=== PATIENT | female | born 1940 | race Caucasian/White ===

== ENCOUNTER → 2018-04-12 14:25 | Outpatient (CLI) | payer MEDICARE, SELFPAY ==
--- NOTE | 2018-04-12 14:25 | DT_ITS ---
This patient was seen during an EMR downtime April 11, 2018 - April 18, 2018. This patient may have a combination of paper and electronic documentation or all paper documentation. All documentation is viewable within the e-chart portion of [facility] for each patient visit.
--- NOTE | 2018-04-12 14:35 | BI_ITS ---
MAMMOGRAPHY - BILATERAL SCREENING REASON FOR EXAM: Female, 77 years old. Routine annual screening examination. PERTINENT HISTORY: FAM HX OF SISTER @ AGE 74 T DAUGHTER @ AGE 47 - BILAT MOLES MARKED TECHNIQUE: Digital bilateral breast gaby (3D mammographic acquisition) in the CC and MLO projections. 2-D mediolateral oblique (MLO) and craniocaudad (CC) views of both breasts were obtained. CAD: Full Field Digital Mammography with Computer Added Detection was performed. COMPARISON: 03/19/2017 and 03/17/2016 and 03/15/2015 FINDINGS: Breast Composition: The breasts are heterogeneously dense, which may obscure small masses. There are no dominant masses or suspicious calcifications. No other significant abnormalities are identified. BI/SCREENING MAMM (CAD), BILAT IMPRESSION: Stable bilateral screening mammogram. Yearly follow-up mammogram recommended. (A) ASSESSMENT CATEGORY: BIRADS Category 2: Benign. A letter regarding these results will be sent to the patient by the facility within 30 days. Approximately 10% of breast cancers are not detected by mammography. A normal mammogram should not delay biopsy of a clinically suspicious abnormality. [id number] Electronically Signed: Jassi King MD at 15:39 EDT Tel , Service support ,
== END ==
PROVIDERS: Family Provider Family Medicine; PCP Family Medicine; Visit Provider Family Medicine
DX: Z12.31 Encounter for screening mammogram for malignant neoplasm of breast (principal)
CPT/HCPCS: 77063; 77067

== ENCOUNTER → 2018-04-29 09:46 | Outpatient (CLI) | payer MEDICARE, SELFPAY ==
[2018-04-29 12:38] LABS: Anion Gap 7 (5-15); BUN 17 mg/dL (7-18); BUN/Creat Ratio 17.2 RATIO (10-20); Calcium,Total 9.5 mg/dL (8.5-10.1); Chloride 105 mmol/L (98-107); Cholesterol 165 mg/dL (200); Creatinine, Serum 0.99 mg/dL (0.55-1.02); EST Glomerular Filtration Rate 58 mL/min (>60); Est Glom Filt Rate - Afr Amer 70 mL/min (>60); Glucose 95 mg/dL (74-106); High Density Lipoprotein 42 mg/dL; Potassium 4.7 mmol/L (3.5-5.1); Sodium Level 140 mmol/L (136-145); Thyroid Stim Hormone (TSH) 1.79 uIU/mL (0.358-3.74); Triglycerides 133 mg/dL; Very Low Density Lipoprotein 27 mg/dL (5-40)
== END ==
PROVIDERS: Family Provider Family Medicine; PCP Family Medicine; Visit Provider Family Medicine
DX: E78.00 Pure hypercholesterolemia, unspecified (principal); E04.2 Nontoxic multinodular goiter; I10 Essential (primary) hypertension
CPT/HCPCS: 36415; 80048; 80061; 84443

== ENCOUNTER → 2019-04-12 | Outpatient (CLI) | payer MEDICARE, SELFPAY ==
[2019-04-12 10:24] LABS: Hematocrit 40.4 % (37-47); Hemoglobin 13.4 g/dl (12.0-15.0); Mean Corp Hgb Conc 33.2 g/gl (32-36); Mean Corpuscular Hgb 30.5 pg (27.0-32.0); Mean Platelet Vol. 10.7 fl (6.2-12.0); Platelet Count 285 K/mm3 (150-450); RBC Distribution Width CV 13.4 % (11.6-14.6); RBC Distribution Width SD 44.2 fl (35.1-43.9); Red Blood Count 4.39 M/mm3 (4.2-5.4); White Blood Count 7.1 K/mm3 (4.4-11.0)
[2019-04-12 10:26] LABS: Scan Indicated on CBC? Y/N NO
[2019-04-12 10:49] LABS: Anion Gap 6 (5-15); BUN 22 mg/dL (7-18); BUN/Creat Ratio 19.8 RATIO (10-20); Calcium,Total 9.2 mg/dL (8.5-10.1); Chloride 107 mmol/L (98-107); Cholesterol 177 mg/dL (200); Creatinine, Serum 1.11 mg/dL (0.55-1.02); EST Glomerular Filtration Rate 51 mL/min (>60); Est Glom Filt Rate - Afr Amer 61 mL/min (>60); Glucose 80 mg/dL (74-106); High Density Lipoprotein 58 mg/dL; Potassium 4.1 mmol/L (3.5-5.1); Sodium Level 142 mmol/L (136-145); Thyroid Stim Hormone (TSH) 2.09 uIU/mL (0.358-3.74); Triglycerides 120 mg/dL; Uric Acid 5.6 mg/dL (2.6-6.0); Very Low Density Lipoprotein 24 mg/dL (5-40)
== END | disposition home or self-care (01) ==
PROVIDERS: Family Provider Family Medicine; PCP Family Medicine; Referring Provider Family Medicine; Visit Provider Family Medicine
DX: M10.9 Gout, unspecified (principal); I10 Essential (primary) hypertension; E04.9 Nontoxic goiter, unspecified; E78.00 Pure hypercholesterolemia, unspecified
CPT/HCPCS: 36415; 80048; 80061; 84443; 84550; 85027

== ENCOUNTER → 2019-04-20 | Outpatient (CLI) | payer MEDICARE, SELFPAY ==
--- NOTE | 2019-04-20 07:13 | BI_ITS ---
MAMMOGRAPHY - BILATERAL SCREENING REASON FOR EXAM: Female, 78 years old. Routine annual screening examination. PERTINENT HISTORY: Daughter with breast cancer. Sister with breast cancer. TECHNIQUE: Digital bilateral breast renay (3D mammographic acquisition) in the CC and MLO projections. 2-D mediolateral oblique (MLO) and craniocaudad (CC) views of both breasts were obtained. CAD: Full Field Digital Mammography with Computer Added Detection was performed. COMPARISON: Comparison is made with prior study dated April 12, 2018 and March 19, 2017. FINDINGS: Breast Composition: There are scattered areas of fibroglandular density. There are no dominant masses or suspicious calcifications. No other significant abnormalities are identified. There has been no significant change since the prior study. BI/SCREEN MAMM (CAD) W/RENAY BILAT IMPRESSION: Stable bilateral screening mammogram. Yearly follow-up mammogram recommended. (A) ASSESSMENT CATEGORY: BIRADS Category 1: Negative. A letter regarding these results will be sent to the patient by the facility within 30 days. Approximately 10% of breast cancers are not detected by mammography. A normal mammogram should not delay biopsy of a clinically suspicious abnormality. [id number] Electronically Signed: Dereck Cortes, at 10:30 EDT , Service support ,
--- NOTE | 2019-04-20 07:14 | US_ITS ---
STUDY: THYROID ULTRASOUND REASON FOR EXAM: Female, 78 years old. Multinodular goiter. TECHNIQUE: Ultrasound evaluation of the thyroid was performed with real-time and static robertson-scale imaging. COMPARISON: Comparison is made with prior study dated August 24, 2017. FINDINGS: RIGHT LOBE: The right lobe of the thyroid gland measures 4.6 cm x 1.3 cm x 1.5 cm. There is a heterogeneous echotexture. 2 cystic nodules are seen in the upper and lower pole. The larger measures 5 mm x 5 mm x 4 mm. This is in the lower pole. LEFT LOBE: The left lobe of the thyroid gland measures 4 cm x 1.2 cm x 1.4 cm. There is a heterogeneous echotexture. There are no demonstrated solid, cystic or complex lesions. The previously seen nodule is not seen at this time. ISTHMUS: The isthmus measures 3.0 mm. The regional lymph nodes are normal. US/Thyroid IMPRESSION: 2 subcentimeters cysts are seen in the right lobe of the thyroid. The left lobe is unremarkable. Electronically Signed: Dereck Cortes, at 12:41 EDT , Service support ,
== END | disposition home or self-care (01) ==
LOC: OPBI 07:11
PROVIDERS: Family Provider Family Medicine; PCP Family Medicine; Referring Provider Family Medicine; Visit Provider Family Medicine
DX: E04.2 Nontoxic multinodular goiter (principal); Z12.31 Encounter for screening mammogram for malignant neoplasm of breast
CPT/HCPCS: 76536; 77063; 77067

== ENCOUNTER 2019-06-15 09:42 | Observation (INO) | payer MEDICARE, SELFPAY ==
[2019-06-15] VITALS (12 sets, daily range): BP systolic 134–196; BP diastolic 51–85; PULSE 5–64; RESP 14–18; TEMP 36.4–36.9; O2SAT 94–100; BMI 29.3; BMI 30.5
--- NOTE | 2019-06-15 09:52 | RAD_ITS ---
STUDY: X-RAY CHEST REASON FOR EXAM: Female, 78 years old. Blurred vision. TECHNIQUE: Single AP portable view of the chest. COMPARISON: None. FINDINGS: Elevation of the right hemidiaphragm. Scattered calcified granulomas. Minimal increased linear markings at the left lung base suggestive of bleeding atelectasis. There is no demonstrated pleural abnormality. Normal size heart. Normal mediastinum and fredy. Normal visualized pulmonary arteries. Normal visualized aortic arch and descending thoracic aorta. There are diffuse degenerative changes of the visualized thoracic spine. Normal visualized ribs, clavicles, and shoulders. There is no demonstrated abnormality of the visualized soft tissue structures of the upper abdomen. RAD/Chest 1 View (Portable) IMPRESSION: Minimal increased markings at the left lung base suggestive of linear atelectasis. Electronically Signed: Dereck Cortes, at 10:26 EDT , Service support ,
--- NOTE | 2019-06-15 09:52 | EKG12_ITS ---
Test Reason : NEURO S/SX Blood Pressure : / mmHG Vent. Rate : 058 BPM Atrial Rate : 058 BPM P-R Int : 194 ms QRS Dur : 086 ms QT Int : 414 ms P-R-T Axes : 040 -17 024 degrees QTc Int : 406 ms Sinus bradycardia Inferior infarct (cited on or before 17-DEC-2015), age undetermined Abnormal ECG Confirmed by ANTONIA QUIJANO ([id number]), editor map KATTY MAHAJAN ([id number]) on 06/19/2019 1:23:50 PM Referred By: Feliz Solorzano Confirmed By:ANTONIA QUIJANO
--- NOTE | 2019-06-15 09:53 | CT_ITS ---
STUDY: CTA HEAD AND NECK WITH CONTRAST REASON FOR EXAM: Female, 78 years old. RT EYE BLINDNESS X 2 DAYS. Hx of macular degeneration.. RADIATION DOSAGE (If Supplied By Facility): CTDIvol = ( 27.64 ) mGy, DLP = ( 1276.85 ) mGycm TECHNIQUE: CT angiography was performed with a multi-detector CT scanner. Data acquisition was obtained from the skull base through the vertex following intravenous administration of 100ml IV Isovue 300. MIP images were reconstructed from the axial data set. Post-processing of the angiographic images was performed, with multiplanar reformation and 3D reconstruction. Individualized dose optimization techniques were used for this CT. COMPARISON: No relevant priors. FINDINGS: Normal bilateral petrous carotid arteries. Normal right cavernous carotid artery with a normal supraclinoid bifurcation. Normal left cavernous carotid artery with a normal supraclinoid bifurcation. Normal right A1 segments of the anterior cerebral artery. Normal left A1 segments of the anterior cerebral artery. Normal intact anterior communicating artery (ACOM). Normal bilateral A2 segments of the anterior cerebral arteries. Normal right M1 and M2 segments of the middle cerebral arteries, with a normal M1 bifurcation. Normal left M1 and M2 segments of the middle cerebral arteries, with a normal M1 bifurcation. Normal bilateral vertebral arteries. Normal basilar artery with a normal basilar bifurcation. Normal bilateral P1, P2 and visualized P3 segments of the posterior cerebral arteries. There is no demonstrated aneurysm of the [place] of [place]. There is no demonstrated abnormality of the visualized brain. AORTIC ARCH: Normal visualized aortic arch. Normal origins of the brachiocephalic, left common carotid, and left subclavian arteries. RIGHT CAROTID ARTERIES: Normal right common carotid artery (CCA). There is mild atherosclerotic plaque formation with minimal narrowing of the right carotid bulb. Normal origin of the right internal carotid (ICA) artery without a hemodynamically significant stenosis. Normal visualized cervical portion of the right internal carotid artery. Normal origin of the right external carotid artery (ECA). LEFT CAROTID ARTERIES: Normal left common carotid artery (CCA). There is minimal atherosclerotic plaque formation without narrowing of the left carotid bulb. Normal origin of the left internal carotid (ICA) artery without a hemodynamically significant stenosis. Normal visualized cervical portion of the left internal carotid artery. Normal origin of the left external carotid artery (ECA). VERTEBRAL ARTERIES: Normal bilateral vertebral arteries. CT/CTA Head AND Neck W/ Contrast IMPRESSION: No occlusion or significant stenosis. Mild atherosclerotic plaque. Electronically Signed: Brayden Pan MD at 12:03 EDT Tel , Service support ,
--- NOTE | 2019-06-15 09:59 | ED.VIS.GEN ---
History of Present Illness Chief Complaint: Neuro S/Sx Informant: Patient Onset: Days Current Severity: Mild Narrative: Complains of visual disturbance blurriness in right eye, she indicates she really only has vision from her right eye due to left eye macular degeneration, left eye she only sees out of the sides , on Wednesday or Wednesday she developed visual disturbance when she woke up consisted of a blurry vision to where she could not see much lasted for 20 minutes, she made a point with her global head advertiser solutions, seen today she is asymptomatic and her ophthalmologic exam is unremarkable there is concern for possible stroke or other life-threatening conditions causing the above affecting her only eye with effective vision she was sent to the emergency department for evaluation, she currently has no symptoms or visual function is normal in both of her eyes she has no change in functional ability, no headache no speech disturbance no numbness weakness or paresthesias she is never had a stroke NE PE or DVT no heart lung liver or kidney disorders Past Medical History - Allergies and Home Meds Allergies/Adverse Reactions: Allergies aspirin Allergy (Verified 06/15/19 09:43) Unknown PT HAS HX OF MACULAR DEGENERATION Primary Care Physician: Francois Black MD [Primary Care Provider] - Past Medical History: - Surgical History: cholecystectomy, hysterectomy, surgery Smoking Status: Never smoker Review of Systems ROS: - High cholesterol takes a water pill and as above General: Denies: Chills, Fever, Sweats Eyes: Reports: Visual changes - right, Visual changes - bilaterally, Diplopia ENT: Denies: Rhinorrhea, Sore throat Cardiovascular: Denies: Chest pain, Palpitations Respiratory: Denies: Dyspnea, Cough, Dyspnea on exertion Gastrointestinal: Denies: Abdominal pain, Nausea, Vomiting, Diarrhea, Melena, Hematochezia Genitourinary: Denies: Dysuria, Hematuria, Frequency Musculoskeletal: Denies: Back pain, Extremity Pain Skin: Denies: Rash, Wounds Neurological: Denies: Headache, Weakness, Numbness Physical Exam Vital Signs/Narrative: Vital Signs Temp Pulse Resp BP Pulse Ox 06/15/19 09:43 97.5 F L 56 L 17 196/70 H 97 General: Well nourished, Well developed, No Acute Distress Head: Normocephalic, Atraumatic Eyes: Perrl, EOMI ENT: Moist mucous membranes, No rhinorrhea Neck: Supple, Nontender Cardiovascular: Regular rate, Regular rhythm, No murmurs Respiratory: No distress, CTA bilaterally, Chest nontender Abdomen: Soft, Nontender, Nondistended, Normal bowel sounds Back: Nontender, Normal Inspection Extremities: Nontender, No edema Skin: Normal color, No rash Neurological: Alert, Oriented x3, Cranial nerves II-XII grossly intact, Normal Strength, Normal Sensation, - - Her visual field cranial nerve exam general medical neurologic exam are all negative her NIH is 0 she has no complaints asymptomatic Psychological: Normal affect, Normal Mood Diagnostic/Tx/Re-eval - Medical Decision Making The ophthalmology team did call and discussed the case with us as above given the negative ophthalmology work-up and the sudden onset of visual disturbance and the fact she only has vision in right eye comprehensive screening labs will be obtained will evaluate head CTa neck CTa Patient's EKG shows sinus rhythm rate of about 70 no acute injury pattern pot, her labs are all unremarkable, CTA head and neck show some atherosclerosis but no acute occlusion or acute abnormality see all those reports Spoke with the patient spoke with the hospitalist the plan to set is to admit for further management and evaluation Admit stable Final impression Acute visual disturbance blindness involving right eye, history of blindness related to macular degeneration left eye ED Disposition - Plan for ED Patient: Diagnosis: Transient vision disturbance of right eye Referrals: Francois Black MD [Primary Care Provider] -
[2019-06-15 10:21] LABS: Absolute Lymphocyte Count 2.62 X10^3/uL (0.83-4.51); Absolute Neutrophil Count 4.9 X10^3/uL (2.0-7.7); Basophil# 0.06 X10^3/uL; Basophil% 0.7 % (0-1); Eosinophil# 0.33 X10^3/uL; Eosinophils% 3.9 % (0-5); Hematocrit 40.3 % (37-47); Hemoglobin 13.4 g/dL (12.0-15.0); Lymphocyte # 2.62 X10^3/ul (4.0); Lymphocyte % 30.8 % (19-41); Mean Corp Hgb Conc 33.3 g/dL (32-36); Mean Corpuscular Hgb 31.4 pg (27.0-32.0); Mean Corpuscular Volume 94.4 fL (81-99); Mean Platelet Vol. 10.1 fl (6.2-12.0); Monocyte# 0.58 X10^3/uL; Monocyte% 6.8 % (0-10); NRBC Flagged by Analyzer 0 % (0-5); Neutrophil % 57.7 % (47-70); Platelet Count 252 K/mm3 (150-450); RBC Distribution Width CV 13.2 % (11.6-14.6); Red Blood Count 4.27 M/mm3 (4.2-5.4); White Blood Count 8.5 K/mm3 (4.4-11.0)
--- NOTE | 2019-06-15 10:25 | NURSING ---
PER WARREN, LAB, CHEMISTRIES HEMOLIZED
[2019-06-15 10:26] LABS: Bedside Glucose 80 mg/dL (70-110)
[2019-06-15 10:55] LABS: Anion Gap 6 (5-15); BUN 27 mg/dL (7-18); BUN/Creat Ratio 25.5 RATIO (10-20); Calcium,Total 9.3 mg/dL (8.5-10.1); Chloride 106 mmol/L (98-107); Creatinine, Serum 1.06 mg/dL (0.55-1.02); EST Glomerular Filtration Rate 53 mL/min (>60); Est Glom Filt Rate - Afr Amer 65 mL/min (>60); Estimated Creatinine Clearance 46.31 ml/min; Glucose 83 mg/dL (74-106); Potassium 3.9 mmol/L (3.5-5.1); Sodium Level 141 mmol/L (136-145)
--- NOTE | 2019-06-15 12:26 | NURSING ---
DR LORENZO REDD
--- NOTE | 2019-06-15 12:27 | MRI_ITS ---
STUDY: MRI BRAIN WITHOUT CONTRAST REASON FOR EXAM: Female, 78 years old. Right visual disturbance, history of macular degeneration TECHNIQUE: Standardized multiplanar fat and water weighted pulse sequences were obtained. COMPARISON: None. FINDINGS: Mild atrophy and moderate periventricular white matter ischemic changes without mass effect or restricted diffusion.. Normal bilateral basal ganglia. Normal thalami. There is no extra-axial fluid accumulation. Normal flow voids within the major intracranial circulation suggesting patency by spin echo criteria. Normal sella turcica, pituitary gland, infundibular stalk, optic chiasm and hypothalamus. Normal tectal plate and pineal gland. Normal midbrain, nehemias and medulla. Normal cerebellum. Normal basal cisterns. Normal bilateral temporal bones. Normal bilateral internal auditory canals. Postsurgical changes status post bilateral optical lens implants.. Normal visualized paranasal sinuses. Normal calvarium and skull base. Normal visualized soft tissue structures. Normal visualized upper cervical spine. MRI/Brain without Contrast IMPRESSION: Moderate periventricular white matter ischemic changes without evidence for acute infarct. Electronically Signed: Arash Guzman MD at 16:47 EDT , Service support ,
--- NOTE | 2019-06-15 12:37 | NURSING ---
PCU BLURRY VISION LORENZO
--- NOTE | 2019-06-15 13:28 | HP.PCM_ITS ---
Problem List (1) Transient vision disturbance of right eye Status: Acute (2) Macular degeneration Status: Chronic (3) Obesity Status: Chronic (4) HLD (hyperlipidemia) Status: Chronic (5) HTN (hypertension) Status: Chronic History of Present Illness Date of Admission: 06/15/19 Chief Complaint: Right eye blurry vision The patient is a 78 year old F with history of hypertension came to ER when she had right-sided blurry vision for past 2 days. She noted blurry vision which lasted for about 20 minutes in the morning of day before admission. She also had some vision change about 2 days ago. Patient saw the fiberglass boat parts finisher and he suspects vascular phenomena possible stroke. She was referred to ER. 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 Denies previous history of coronary artery disease/CHF, peripheral artery disease but was on Xarelto in the past for heart possible paroxysmal A. fib. Patient does not remember the details. [] In ED, she had CTA of head and neck which reported as normal. Chest x-ray shows minimal increased markings left lung base suggestive of linear atelectasis. EKG sinus bradycardia at 58 bpm. Previous EKG of 2015 normal sinus rhythm. Past Medical History Past Medical History (Chronic Problems): Chronic Problems Macular degeneration (Chronic) Obesity (Chronic) HLD (hyperlipidemia) (Chronic) HTN (hypertension) (Chronic) Allergies aspirin Allergy (Verified 06/15/19 09:43) Unknown PT HAS HX OF MACULAR DEGENERATION Home Medications: Ambulatory Orders Medication Instructions Recorded Atorvastatin Calcium [Lipitor] 20 mg PO DAILY 12/17/15 Hydrochlorothiazide [Hctz] 12.5 mg PO DAILY 12/17/15 Trandolapril [Mavik] 4 mg PO DAILY 12/17/15 Diclofenac [Voltaren] 75 mg PO BIDCM 06/15/19 Surgical History: cholecystectomy, hysterectomy, surgery Smoking Status: Never smoker - *Family History Paternal History Items: Heart Disease - ID in 50s Review of Systems Constitutional: Denies: Chills, Fever, Weight Change Eyes: Reports: Blurred vision, Vision Change. Denies: Double vision HEENT: Denies: Head Aches, Sinus Congestion, Sinus Drainage Cardiovascular: Denies: Chest Pain, Palpitations Respiratory: Denies: Cough, Shortness of breath at rest, Sputum production Gastrointestinal: Denies: Abdominal Pain, Nausea, Vomiting Genitourinary: Denies: Dysuria Musculoskeletal: Reports: Back Pain - Lumbar pain, Joint Pain - Bilateral hip joint pain. Patient tripped and fall on right hip about 3 weeks ago and had a bruise which has healed. Patient states her hip joints gives out on walking., Joint stiffness. Denies: Joint Tenderness Skin: Denies: Rash, Wounds Neurological: Reports: Balance problems - Chronic arthritis.. Denies: Focal weakness, Numbness, Tingling Psychiatric: Denies: Anxiety, Depression, Homicidal Ideations, Suicidal Ideations Hematologic/ Lymphatic: Denies: Easy Bruising, Easy Bleeding VTE Information - Inpt Only VTE Present on Admission: No VTE Mechan Device Prophylaxis: None VTE Pharm Prophylaxis ordered?: Yes Patient Problems: Active and Suspected Problems Transient vision disturbance of right eye (Acute) - Physical Exam General: Alert, Oriented x3, Cooperative HEENT: Atraumatic, PERRLA, EOMI, Normocephalic, - - On direct 1-1 visual confrontation test. Left eye has tunnel vision, patient had minimal vision peripherally. Right eye: No peripheral loss of vision Neck: Supple, No JVD, Negative Carotid Bruits Lungs: Clear to auscultation, Normal air movement, No rhonchi, No wheeze, No rales Cardiovascular: Regular rate, Regular Rhythm, Normal S1, Normal S2, Bradycardic Abdomen: Bowel Sounds Present, Soft, Non Tender, Non-Distended Extremities: No edema, Capillary Refill Less than 3 Seconds Skin: No rashes, No breakdown Musculoskeletal: No Tenderness to Palpation of Joints or Extremities, Arthritic Changes Lymphatic: No Cervical, Supraclavicular, or Inguinal Adenopathy Neurological: Cranial nerves II-XII grossly intact, Deep Tendon Reflexes 2+/4 and Symmetrical, Neuro grossly intact, - Psych/Mental Status: Normal Affect, Appropriate Vital Signs Temp Pulse Resp BP Pulse Ox 97.5 F L 52 L 17 154/85 H 96 06/15/19 09:43 06/15/19 13:20 06/15/19 13:20 06/15/19 13:20 06/15/19 13:20 Oxygen Delivery Method Room Air Weight: 145 lb 8.081 oz Body Mass Index (BMI) 29.3 Finger Stick Blood Glucose 80 Laboratory Tests Past 24 Hrs 06/15/19 06/15/19 06/15/19 10:15 10:15 10:30 WBC 8.5 RBC 4.27 Hgb 13.4 Hct 40.3 MCV 94.4 MCH 31.4 MCHC 33.3 RDW Std Deviation 45.0 H RDW Coeff of [place] 13.2 Plt Count 252 MPV 10.1 Immature Gran % (Auto) 0.100 Neut % (Auto) 57.7 Lymph % (Auto) 30.8 [place] % (Auto) 6.8 Eos % (Auto) 3.9 Baso % (Auto) 0.7 Absolute Neuts (auto) 4.9 Absolute Lymphs (auto) 2.62 Nucleated RBC % 0 Sodium Cancelled 141 Potassium Cancelled 3.9 Chloride Cancelled 106 Carbon Dioxide Cancelled 29.0 Anion Gap Cancelled 6 BUN Cancelled 27 H Creatinine Cancelled 1.06 H Estim Creat Clear Calc Cancelled 46.31 Est GFR (MDRD) Af Amer Cancelled 65 Est GFR (MDRD) Non-Af Cancelled 53 L BUN/Creatinine Ratio Cancelled 25.5 H Glucose Cancelled 83 Calcium Cancelled 9.3 Troponin I Cancelled < 0.015 POC Glucose 06/15/19 10:15 POC Glucose 80 Assessment/Plan All Active Problems Transient vision disturbance of right eye (Acute) The patient is a 78 year old F with history of hypertension came to ER when she had right-sided blurry vision for past 2 days. She noted blurry vision which lasted for about 20 minutes in the morning of day before admission. 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 [] In ED, she had CTA of head and neck which reported as normal. Chest x-ray shows minimal increased markings left lung base suggestive of linear atelectasis. EKG sinus bradycardia at 58 bpm. Previous EKG of 2016 normal sinus rhythm. 1. Transient blurring of right eye vision, suspicion of TIA: Patient is being admitted in PCU. MRI brain ordered. Cardiac telemetry. Troponin is negative. On IV Ringer lactate?100 mils per hour. 2D echo ordered. Maintain NIH stroke scale, PT OT and speech evaluation. BP and glucose control as per stroke guidelines. Neuro consult. Started on Plavix and statin. Mild prerenal azotemia BUN/creatinine 27/1.06 2. Hypertension: Blood pressure is 154/85, heart rate 52/min. Blood pressure to maintain permissive hypertension range. 3. Macular degeneration of left eye. Stable. Follows fiberglass boat parts finisher. 4. 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 DVT prophylaxis: On Lovenox 40 mg subcu daily Code Visit OBSV E&M: 93901 Initial observation care L3
--- NOTE | 2019-06-15 13:54 | ECHOD_ITS ---
Reason For Study: TIA Procedure This was a 2D Doppler, Color Flow transthoracic echocardiogram. The study was technically difficult. Exam performed portable in patient room. Left Ventricle Normal LV size. Left ventricular systolic function is normal. The estimated ejection fraction is 65 %. Diastolic function is indeterminate. No regional wall motion abnormalities noted. Right Ventricle Normal RV size. Normal systolic function. Atria Normal left atrium. Normal right atrium. No doppler evidence for ASD. Mitral Valve There is no mitral annular calcification. Normal mitral valve. Mild-Moderate (1-2+) mitral valve insufficiency. Tricuspid Valve Normal tricuspid valve. Trivial tricuspid valve insufficiency. Right ventricular systolic pressure estimated to be 28 mmHg. Aortic Valve Trisinus/trileaflet aortic valve. Mild focal aortic valve calcification. Pulmonic Valve The pulmonic valve is not well visualized. Great Vessels Normal sized aortic root. Pericardium/Pleural No pericardial effusion. Medication Performed a rapid injection of agitated mix of 9 cc saline and 1cc air to assess for atrial septal defect. MMode/2D Measurements & Calculations LVIDd: 4.1 cm IVSd: 0.90 cm Ao root diam: 3.5 cm LVIDs: 2.7 cm LVPWd: 0.91 cm RVDd: 3.4 cm FS: 34.6 % LAV(MOD-bp): 41.6 ml LA A4 area: 15.6 cm2 LA dimension(2D): 3.4 cm LAV(MOD-bp) Indexed: 25.8 ml/m2 LAV(MOD-sp2): 42.7 ml LAV(MOD-sp4): 39.4 ml RA A4 area: 15.3 cm2 Time Measurements MV dec time: 0.27 sec Doppler Measurements & Calculations MV E max ti: 99.3 cm/sec Lat Peak E' Ti: 6.3 cm/sec Med Peak E' Ti: 7.0 cm/sec MV A max ti: 124.6 cm/sec E/E' lat: 15.7 E/E' med: 14.3 MV E/A: 0.80 Ao V2 max: 179.2 cm/sec LV V1 max: 114.8 cm/sec PA V2 max: 74.7 cm/sec Ao max P.9 mmHg LV V1 max P.3 mmHg TR max ti: 249.3 cm/sec TR max P.9 mmHg Interpretation Summary The study was technically difficult. Left ventricular systolic function is normal. The estimated ejection fraction is 65 %. Mild-Moderate (1-2+) mitral valve insufficiency. Trivial tricuspid valve insufficiency. Mild focal aortic valve calcification. Right ventricular systolic pressure estimated to be 28 mmHg. Diastolic function is indeterminate. Ordering Physician: Feliz Solorzano Referring Physician: ADELINA MEDINA Performed By: Ana Paula, Ramona, RDCS, RVT
[2019-06-15] MEDS: 0.9% Normal Saline 1,000 ML 100 ML IV (14:42)
[2019-06-15] MEDS: Clopidogrel Bisulfate 75 MG Tablet PO (14:42)
[2019-06-15] MEDS: Enoxaparin 30 MG/0.3 ML Syringe SC (14:42)
[2019-06-15] MEDS: LORazepam 2 MG/ML Syringe 1 MG IV (15:31)
[2019-06-15] MEDS: Atorvastatin Calcium 80 MG Tablet PO (21:34)
[2019-06-16] MEDS: 0.9% Normal Saline 1,000 ML 75 ML IV (02:15)
[2019-06-16 03:18] VITALS: PULSE 51
[2019-06-16 03:37] VITALS: BP 150/62; PULSE 57; RESP 16; TEMP 36.3; O2SAT 97
[2019-06-16 07:05] VITALS: PULSE 54
[2019-06-16 07:18] VITALS: O2SAT 95
[2019-06-16 07:19] LABS: Anion Gap 6 (5-15); BUN 20 mg/dL (7-18); BUN/Creat Ratio 18.7 RATIO (10-20); Calcium,Total 8.7 mg/dL (8.5-10.1); Chloride 111 mmol/L (98-107); Cholesterol 159 mg/dL (200); Creatinine, Serum 1.07 mg/dL (0.55-1.02); EST Glomerular Filtration Rate 53 mL/min (>60); Est Glom Filt Rate - Afr Amer 64 mL/min (>60); Estimated Creatinine Clearance 46.08 ml/min; Glucose 82 mg/dL (74-106); High Density Lipoprotein 53 mg/dL; Potassium 3.6 mmol/L (3.5-5.1); Sodium Level 143 mmol/L (136-145); Triglycerides 137 mg/dL; Very Low Density Lipoprotein 27 mg/dL (5-40)
[2019-06-16 09:00] VITALS: BP 131/68; PULSE 63; RESP 16; TEMP 36.5; O2SAT 97
[2019-06-16] MEDS: Lisinopril 40 MG Tablet PO (09:43)
--- NOTE | 2019-06-16 10:55 | CON.PCM_ITS ---
Reason for Consult Date of Consultation: 06/16/19 Reason for Consultation: left eye vision changes History of Present Illness: The patient is a 78 year old F right handed white female. reports initially a black dot in her left eye, resolved, went to bed, awoke the next am with blurry vision for 20min then resolved. was told in the past to not take asa. nonsmoker. reports history of snoring, never psg. reports bp controlled at home but doesnt know numbers. history described below is not clear to the patient. now feels normal. no headache, one migraine 15 yrs ago. saw optho as op was told to come to er, history of macular degeneration which mainly affects left eye. also hx bilat cataract surgery. per admit note:The patient is a 78 year old F with history of hypertension came to ER when she had right-sided blurry vision for past 2 days. She noted blurry vision which lasted for about 20 minutes in the morning of day before admission. She also had some vision change about 2 days ago. 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 She was referred to ER. 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 Denies previous history of coronary artery disease/CHF, peripheral artery disease but was on Xarelto in the past for heart possible paroxysmal A. fib. Patient does not remember the details. [] In ED, she had CTA of head and neck which reported as normal. Chest x-ray shows minimal increased markings left lung base suggestive of linear atelectasis. EKG sinus bradycardia at 58 bpm. Previous EKG of 2016 normal sinus rhythm. Past Medical History Past Medical History (Chronic Problems): Chronic Problems Macular degeneration (Chronic) Obesity (Chronic) HLD (hyperlipidemia) (Chronic) HTN (hypertension) (Chronic) Allergies aspirin Allergy (Verified 06/15/19 09:43) Unknown PT HAS HX OF MACULAR DEGENERATION Home Medications: Ambulatory Orders Medication Instructions Recorded Atorvastatin Calcium [Lipitor] 20 mg PO DAILY 12/17/15 Hydrochlorothiazide [Hctz] 12.5 mg PO DAILY 12/17/15 Trandolapril [Mavik] 4 mg PO DAILY 12/17/15 Diclofenac [Voltaren] 75 mg PO BIDCM 06/15/19 Surgical History: cholecystectomy, hysterectomy, surgery Smoking Status: Never smoker Alcohol: None Drugs: None - *Family History Paternal History Items: Heart Disease - MS in 50s Review of Systems Constitutional: Denies: Chills, Fever, Weight Change HEENT: Denies: Head Aches, Sinus Congestion, Sinus Drainage Cardiovascular: Denies: Chest Pain, Palpitations Respiratory: Denies: Cough, Shortness of breath at rest, Sputum production Gastrointestinal: Denies: Abdominal Pain, Nausea, Vomiting Genitourinary: Denies: Dysuria Musculoskeletal: Denies: Joint Pain, Joint Tenderness Skin: Denies: Rash, Wounds Neurological: Denies: Numbness, Tingling, Focal weakness Psychiatric: Denies: Anxiety, Depression, Homicidal Ideations, Suicidal Ideations Hematologic/ Lymphatic: Denies: Easy Bruising, Easy Bleeding Patient Problems: Active and Suspected Problems Transient vision disturbance of right eye (Acute) - Physical Exam General: Alert, Oriented x3, Cooperative HEENT: Atraumatic, PERRLA, EOMI, Normocephalic Neck: Supple, No JVD, Negative Carotid Bruits Lungs: Clear to auscultation, Normal air movement Cardiovascular: Regular rate, No murmurs Abdomen: Bowel Sounds Present, Soft, Non Tender Extremities: No edema, Capillary Refill Less than 3 Seconds Skin: No rashes, No breakdown Musculoskeletal: No Tenderness to Palpation of Joints or Extremities Neurological: Cranial nerves II-XII grossly intact Psych/Mental Status: Normal Affect, Appropriate Vital Signs Temp Pulse Resp BP Pulse Ox 36.5 C L 63 16 131/68 H 97 06/16/19 09:00 06/16/19 09:00 06/16/19 09:00 06/16/19 09:00 06/16/19 09:00 Oxygen Delivery Method Room Air Weight: 66.3 kg Body Mass Index (BMI) 30.5 Finger Stick Blood Glucose 80 Intake and Output for Last 24 Hours 06/14/19 06/15/19 06/16/19 23:59 23:59 23:59 Intake Total 420 / 420 1831 / 1831 Balance 420 / 420 1831 / 1831 Laboratory Tests Past 24 Hrs 06/15/19 06/16/19 13:20 06:30 Sodium 143 Potassium 3.6 Chloride 111 H Carbon Dioxide 26.0 Anion Gap 6 BUN 20 H Creatinine 1.07 H Estim Creat Clear Calc 46.08 Est GFR (MDRD) Af Amer 64 Est GFR (MDRD) Non-Af 53 L BUN/Creatinine Ratio 18.7 Glucose 82 Calcium 8.7 Troponin I < 0.015 Triglycerides 137 Cholesterol 159 LDL Cholesterol 79 VLDL Cholesterol 27 HDL Cholesterol 53 Current Home Med List Medication Instructions Recorded Confirmed Type Atorvastatin Calcium [Lipitor] 20 mg PO DAILY 12/17/15 06/15/19 History Hydrochlorothiazide [Hctz] 12.5 mg PO DAILY 12/17/15 06/15/19 History Trandolapril [Mavik] 4 mg PO DAILY 12/17/15 06/15/19 History Diclofenac [Voltaren] 75 mg PO BIDCM 06/15/19 06/15/19 History Current Medications Generic Name Dose Route Start Last Admin Trade Name Freq PRN Reason Stop Dose Admin Acetaminophen 650 mg 06/15/19 12:27 Tylenol PO Q4H PRN PRN Headache/Temp>99.6F Atorvastatin Calcium 80 mg 06/15/19 22:00 06/15/19 21:34 Lipitor PO 80 mg QHS ANMOL Administration Clopidogrel Bisulfate 75 mg 06/16/19 10:00 Plavix PO DAILY ANMOL Dextrose 0 gm 06/15/19 12:32 D50w Syringe IV X1 PRN Hypoglycemia Protocol Enoxaparin Sodium 30 mg 06/15/19 15:00 06/15/19 14:42 Lovenox SC 30 mg DAILY ANMOL Administration Famotidine 20 mg 06/15/19 22:00 06/15/19 21:34 Pepcid PO Not Given BID ANMOL Glucagon 1 mg 06/15/19 12:32 IM .X1 PRN Hypoglycemia Hydralazine HCl 5 mg 06/15/19 12:27 Apresoline Iv IV Q30M PRN sbp > 220/120 Sodium Chloride 1,000 mls @ 75 mls/hr 06/15/19 12:30 06/16/19 02:15 IV 75 mls/hr .[id number] ANMOL Administration Sodium Chloride 250 mls @ 15 mls/hr 06/15/19 14:05 IV .[id number] PRN SALINE FLUSH Labetalol HCl 10 mg 06/15/19 12:27 Trandate IV 06/16/19 12:28 Q10M PRN MAINTAIN BP < 220/120 Lisinopril 40 mg 06/16/19 10:00 06/16/19 09:43 Zestril PO 40 mg DAILY ANMOL Administration Morphine Sulfate 2 mg 06/15/19 12:32 IV Q3H PRN PRN Severe Pain (7-10/10) Oxycodone HCl 5 mg 06/15/19 12:32 Oxyir PO Q4H PRN PRN Moderate Pain (4-6/10) Sodium Chloride 10 - 40 ml 06/15/19 14:05 IV UD PRN SALINE FLUSH mri reviewed, no acute cta no stenosis Assessment/Plan All Active Problems Transient vision disturbance of right eye (Acute) tia vs visual obscuration plavix high dose statin 30d event monitro ok to dc op fu ?op psg
--- NOTE | 2019-06-16 11:19 | DCINST_ITS ---
- Discharge Diagnoses Current Active Problems: Current Active and Chronic Problems Transient vision disturbance of right eye (Acute) You will use the following diet at home:: Cardiac Your food should be the consistency of: Regular Discharge Activity: May Not Drive Call your doctor if you observe: Fever of 101 or Higher, Coldness, Increased Pain, Numbness or Tingling, Inability to urinate, Inability to have a bowel movement, Shortness of breath, Dizziness, Fainting spells, Swelling in the ankles, Chest pain, Prolonged hiccoughing, Increased palpitations (irregular heartbeat), Uncontrolled pain Additional Instructions: Please follow-up with canvas worker apprentice in 2 weeks. Need 30 days event monitor Allergies/Adverse Reactions: Allergies aspirin Allergy (Verified 06/15/19 09:43) Unknown PT HAS HX OF MACULAR DEGENERATION Medications to take at Discharge Hydrochlorothiazide [Hctz] 12.5 mg PO DAILY 12/17/15 Trandolapril [Mavik] 4 mg PO DAILY 12/17/15 Atorvastatin Calcium 40 mg PO QHS #30 tab 06/16/19 Clopidogrel Bisulfate [Plavix] 75 mg PO DAILY #30 tab 06/16/19 The following prescriptions were given: Atorvastatin Calcium 40 mg PO QHS #30 tab Transmission Status: Pending to ANNY BURK RD Clopidogrel Bisulfate [Plavix] 75 mg PO DAILY #30 tab Transmission Status: Pending to ANNY MARK1954 BHARGAVI ANDREA Primary Care Physician: Francois Black MD [Primary Care Provider] - Please follow up with your Primary Care Physician in: IN 2 WEEKS Test Results: Test results from this visit will be discussed in further detail at your follow- up appointment, if applicable.
--- NOTE | 2019-06-16 11:21 | DS.PCM_ITS ---
Discharge Date and Diagnosis Date of Admission: 06/15/19 Date of Discharge: 06/16/19 - Primary Discharge Diagnosis Active and Suspected Problems Transient vision disturbance of right eye (Acute) - Secondary Discharge Diagnosis Chronic Problems Macular degeneration (Chronic) Obesity (Chronic) HLD (hyperlipidemia) (Chronic) HTN (hypertension) (Chronic) Hospital Course and Treatment Summary of Care Provided: The patient is a 78 year old F with history of hypertension came to ER when she had right-sided blurry vision for past 2 days. She noted blurry vision which lasted for about 20 minutes in the morning of day before admission. 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 [] In ED, she had CTA of head and neck which reported as normal. Chest x-ray shows minimal increased markings left lung base suggestive of linear atelectasis. EKG sinus bradycardia at 58 bpm. Previous EKG of 2015 normal sinus rhythm. 1. Transient blurring of right eye vision, suspicion of TIA: Patient is being admitted in PCU. MRI brain does not show acute infarct. Echo reported as EF 65% with normal LV systolic function. No Doppler evidence for ASD. 1-2+ MR. Normal left atrium. Cardiac telemetry shows sinus rhythm. Troponin is negative. Was treated with IV Ringer lactate?100 mils per hour. Patient had NIH stroke scale,. BP and glucose control as per stroke guidelines. Patient was seen by neurologist. Continue on Plavix and statin. Mild prerenal azotemia BUN/creatinine 27/1.06: Improved 20/1.07 2. Hypertension: Blood pressure is 154/85, heart rate 52/min. Blood pressure to maintain permissive hypertension range. 3. Macular degeneration of left eye. Stable. 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 4. 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 Discharge follow-up instructions completed. Discharge process discussed with the patient and her and all questions were answered to patient's satisfaction. Patient is discharged on 30-day event monitor. Discussed with neurologist. No definitive indication for anticoagulation at this time. Discussed with airborne operations superintendent Dr. Box in the approved for a 30-day event monitor. Subjective: Seen and examined. Right-sided blurry vision resolved even prior to admission. Patient was seen by neurologist. No new complaint. Heart rate is controlled in 60s. Hemodynamically stable - Physical Exam General: Alert, Oriented x3, Cooperative HEENT: Atraumatic, PERRLA, EOMI, Normocephalic, - - On direct 1-1 visual confrontation test. Left eye has tunnel vision, patient had minimal vision peripherally. Right eye: No peripheral loss of vision Neck: Supple, No JVD, Negative Carotid Bruits Lungs: Clear to auscultation, Normal air movement, No rhonchi, No wheeze, No rales Cardiovascular: Regular rate, Regular Rhythm, Normal S1, Normal S2, No murmurs Abdomen: Bowel Sounds Present, Soft, Non Tender, Non-Distended Extremities: No edema, Capillary Refill Less than 3 Seconds Skin: No rashes, No breakdown Musculoskeletal: No Tenderness to Palpation of Joints or Extremities Neurological: Cranial nerves II-XII grossly intact, Deep Tendon Reflexes 2+/4 and Symmetrical, Neuro grossly intact, Motor Exam 5/5 strength throughout Psych/Mental Status: Normal Affect, Appropriate Vital Signs Temp Pulse Resp BP Pulse Ox 97.7 F L 63 16 131/68 H 97 06/16/19 09:00 06/16/19 09:00 06/16/19 09:00 06/16/19 09:00 06/16/19 09:00 Oxygen Delivery Method Room Air Weight: 146 lb 2.664 oz Body Mass Index (BMI) 30.5 Finger Stick Blood Glucose 80 Intake and Output for Last 24 Hours 06/14/19 06/15/19 06/16/19 23:59 23:59 23:59 Intake Total 420 / 420 1831 / 1831 Balance 420 / 420 1831 / 1831 Laboratory Tests Past 24 Hrs 06/15/19 06/16/19 13:20 06:30 Sodium 143 Potassium 3.6 Chloride 111 H Carbon Dioxide 26.0 Anion Gap 6 BUN 20 H Creatinine 1.07 H Estim Creat Clear Calc 46.08 Est GFR (MDRD) Af Amer 64 Est GFR (MDRD) Non-Af 53 L BUN/Creatinine Ratio 18.7 Glucose 82 Calcium 8.7 Troponin I < 0.015 Triglycerides 137 Cholesterol 159 LDL Cholesterol 79 VLDL Cholesterol 27 HDL Cholesterol 53 Discharge Activity: May Not Drive Call your doctor if you observe: Fever of 101 or Higher, Coldness, Increased Pain, Numbness or Tingling, Inability to urinate, Inability to have a bowel movement, Shortness of breath, Dizziness, Fainting spells, Swelling in the ankles, Chest pain, Prolonged hiccoughing, Increased palpitations (irregular heartbeat), Uncontrolled pain Home Medications: Medications to take at Discharge Hydrochlorothiazide [Hctz] 12.5 mg PO DAILY 12/17/15 Trandolapril [Mavik] 4 mg PO DAILY 12/17/15 Atorvastatin Calcium 40 mg PO QHS #30 tab 06/16/19 Clopidogrel Bisulfate [Plavix] 75 mg PO DAILY #30 tab 06/16/19 Following Prescrptions Were Given to Patient: Atorvastatin Calcium 40 mg PO QHS #30 tab Transmission Status: Received by ANNY BURK RD Clopidogrel Bisulfate [Plavix] 75 mg PO DAILY #30 tab Transmission Status: Received by ANNY BURK RD Primary Care Physician: Francois Black MD [Primary Care Provider] - Please follow up with your Primary Care Physician in: IN 2 WEEKS Medical Necessity - Tobacco Use Smoking Status: Never smoker Meaningful Use Info Meaningful Use Diagnoses (Choose all that apply): None applicable Code Visit OBSV E&M: 50848 Observation care discharge
--- NOTE | 2019-06-16 11:47 | CASEMGMT ---
SW completed PHQ-9, pt scored 0. No resources needed at this time. ROXANA Jarvis
--- NOTE | 2019-06-16 11:50 | CASEMGMT ---
RN CM BATCH BLENDER CM to room to meet with patient for initial transition planning/care coordination assessment. SONIA LEON introduced self and role at [facility]. Pt voices understanding and consents to assessment at this time. Pt up in room ambulating ad viktoria w/steady gait. . Pt is A/O at this time and answers all questions appropriately. Care providers, pharmacy, and demographics verified/updated at this time. PCP: Dr Francois Black Specialists: none Preferred Pharmacy: [facility]. Insurance: [employer] Prescription Benefit: Yes Living Will/HPOA: Has HCPOA who is her daughter, Karlene LNOK: Living Arrangements: Lives with her . Independent. Transportation: Pt states drives self and states no transportation concerns at this time. will drive home @ D/C DME: Denies using any DME and denies needs. Has a cane and walker but does not use either HHC/SNF: No history of either and no needs identified. Pt wishes to return home and states has no concerns with going home at time of discharge. CM to follow for any further discharge planning/needs. Pt voices no further concerns/needs at this time. Advised pt to ask for CM if any further questions/concerns/needs arise. Voices understanding. PLAN: Home w/spousal support and discharge plans in place. Boo ORELLANA RN, CM
== END 2019-06-16 11:50 | disposition home or self-care (01) ==
LOC: ED 10:23 → PCU 06-16 07:29
PROVIDERS: Admitting Provider Internal Medicine; Emergency Provider Emergency Medicine; Family Provider Family Medicine; PCP Family Medicine; Referring Provider Internal Medicine; Visit Provider Internal Medicine
DX: H53.8 Other visual disturbances (principal); E78.5 Hyperlipidemia, unspecified; I10 Essential (primary) hypertension; E66.9 Obesity, unspecified; H35.30 Unspecified macular degeneration; R29.700 NIHSS score 0; R79.89 Other specified abnormal findings of blood chemistry; M47.896 Other spondylosis, lumbar region; I08.3 Combined rheumatic disorders of mitral, aortic and tricuspid valves; R00.1 Bradycardia, unspecified; Z68.30 Body mass index [BMI] 30.0-30.9, adult; Z71.3 Dietary counseling and surveillance; Z79.899 Other long term (current) drug therapy
CPT/HCPCS: 36415; 70496; 70498; 70551; 71045; 80048; 80061; 82962; 84484; 85025; 93005; 93306; 96361; 96372; 96374; 99218; 99285; J7030; Q9967; A4216; G0378

== ENCOUNTER → 2019-06-29 | Outpatient (CLI) | payer MEDICARE, SELFPAY ==
[2019-06-16 13:16] VITALS: BMI 29.3
--- NOTE | 2019-06-29 11:21 | RAD_ITS ---
STUDY: X-RAY - PELVIS AND RIGHT HIP REASON FOR EXAM: Female, 78 years old. Fall, hip pain TECHNIQUE: 3 views of the pelvis and hip. COMPARISON: 06/16/2017 FINDINGS: There is a non-specific bowel gas pattern. Normal visualized soft tissue structures. Normal bilateral iliac wings, sacroiliac joints and visualized sacrum. Normal bilateral superior and inferior pubic rami. Normal pubic symphysis. Normal bilateral ischial tuberosities. Normal visualized femoral head. Normal acetabulum. Normal hip joint. RAD/HIP, UNI W/ Pelvis 2-3 Views IMPRESSION: Normal x-ray examination of the pelvis and hip. Electronically Signed: Eduardo Johnson MD at 11:41 EDT Tel , Service support ,
== END | disposition home or self-care (01) ==
LOC: MTRAD 11:19
PROVIDERS: Family Provider Family Medicine; PCP Family Medicine; Referring Provider Family Medicine; Visit Provider Family Medicine
DX: S70.01XA Contusion of right hip, initial encounter (principal)
CPT/HCPCS: 73502

== ENCOUNTER → 2019-07-11 | Outpatient (CLI) | payer MEDICARE, SELFPAY ==
[2019-06-16 13:16] VITALS: BMI 29.3
--- NOTE | 2019-07-11 12:05 | RAD_ITS ---
HISTORY: Back pain and lumbar radiculopathy XR Spine Lumbar 2 or 3 Views TECHNIQUE: 3 views # of images incl. paperwork: 3 COMPARISON: None. FINDINGS: BONES: Status post posterior lumbar fusion at L4 and L5 with bilateral pedicle screws. Laminectomy defect at L4 and L5. There is grade 1 spondylolisthesis of L4 upon L5, this anterolisthesis measures up to 4 mm. Mild dextroconvex scoliosis centered at L3. No acute fracture or subluxation. Moderate old L3 inferior endplate compression deformity with up to 50% loss of central height. Mild L2 superior endplate wedge compression deformity with 25% loss of central height. Mild L1 inferior endplate wedge deformity with 15% loss of central height. Moderate anterior marginal osteophytes L1-L3. DISCS: Severe disc space narrowing L1-L2, L2-L3 and L3-L4 levels. Severe disc space narrowing L4-L5. Moderate disc space narrowing L5-S1. SOFT TISSUES: Calcified abdominal aorta. No gross paravertebral soft tissue abnormalities. RAD/Lumbar Spine 2 or 3 Views IMPRESSION: 1. No acute fracture. 2. Status post lumbar fusion at L4-L5. 3. Multilevel old compression deformities of the lumbar vertebral bodies as described in detail above. 4. Moderate degenerative changes. at 0135 Reported and signed by: Luis Reyna MD Electronically Signed: Luis Reyna MD at 1:34 EDT Tel , Service support ,
== END | disposition home or self-care (01) ==
LOC: RAD 12:04
PROVIDERS: Family Provider Family Medicine; PCP Family Medicine; Referring Provider Anesthesiology Pain Medicine; Visit Provider Anesthesiology Pain Medicine
DX: M54.9 Dorsalgia, unspecified (principal); M79.606 Pain in leg, unspecified
CPT/HCPCS: 72100

== ENCOUNTER → 2019-09-13 10:45 | Outpatient (CLI) | payer MEDICARE, SELFPAY ==
[2019-06-16 13:16] VITALS: BMI 29.3
--- NOTE | 2019-09-13 11:06 | BD_ITS ---
STUDY: DUAL ENERGY X-RAY ABSORPTIOMETRY / DXA REASON FOR EXAM: Female, 79 years old. Early menopause. Loss of height. TECHNIQUE: Bone Mineral Density (BMD) measurements of lumbar spine and bilateral hips were obtained. COMPARISON: Comparison is made with prior study dated February 25, 2012. FINDINGS: Lumbar Spine (L1-L4): g/cm2 (1.536) / T-score (3.1) / Z-score (4.9) Findings are suggestive of normal bone density with a low fracture risk. Left Femur Total: g/cm2 (0.936) / T-score (-0.6) / Z-score (1.3) Left Femoral Neck: g/cm2 (0.845) / T-score (-1.4) / Z-score (0.7) Right Femur Total: g/cm2 (0.883) / T-score (-1.0) / Z-score (0.9) Right Femoral Neck: g/cm2 (0.867) / T-score (-1.2) / Z-score (0.8) The T-Scores on the most recent prior examination were: Lumbar Spine (L1-L4): There has been improvement of bone density since the previous examination. Left Femur Total: which represents a worsening of 15.7%. Right Femur Total: which represents a worsening of 18.4%. BD/Dexa Bone Density Study IMPRESSION: The patient is considered osteopenic as outlined below according to World Tobin Organization (WHO) criteria with a low fracture risk. There has been worsening of bone density since the previous examination. Reference Information: The T-score is the number of standard deviations above or below the standard which is normal for young adults at their peak bone mineral density. The World Health Organization (WHO) interprets the T-scores as follows: Above -1 Normal bone density Between -1 and -2.5 Osteopenia Equal to / or below -2.5 Osteoporosis As a practical clinical guideline, osteopenia may be graded as follows: Mild -1 through -1.5 Moderate -1.6 through -2.0 Severe -2.1 through -2.4 The Z-score is the number of standard deviations above or below age-matched controls. A Z-score of less than -1.5 would be considered abnormal. References: 1. NIH Osteoporosis and Related Bone Diseases http://www.osteo.org 2. International Society for Clinical Densitometry http://www.iscd.org 3. National Osteoporosis Foundation http://www.nof.org Electronically Signed: Dereck Cortes, at 13:07 EST , Service support ,
== END ==
PROVIDERS: Family Provider Family Medicine; PCP Family Medicine; Referring Provider Family Medicine; Visit Provider Family Medicine
DX: S32.000A Wedge compression fracture of unspecified lumbar vertebra, initial encounter for closed fracture (principal)
CPT/HCPCS: 77080

== ENCOUNTER → 2019-10-31 13:05 | Outpatient (CLI) | payer MEDICARE, SELFPAY ==
[2019-06-16 13:16] VITALS: BMI 29.3
--- NOTE | 2019-10-31 13:45 | MRI_ITS ---
STUDY: MRI LUMBAR SPINE WITHOUT CONTRAST REASON FOR EXAM: Female, 79 years old. Low back pain and pain into RIGHT leg. Prior surgery in the . TECHNIQUE: Standardized fat and water weighted pulse sequences were obtained in the sagittal and axial planes. COMPARISON: 12/31/2014 FINDINGS: T12-L1: Normal endplates. Normal disc height, hydration and morphology. Normal bilateral facet joints. Normal central canal and bilateral lateral recesses. Normal bilateral intervertebral neural foramina. Normal lumbar lordosis. There is a dextroscoliosis of the lumbar spine. Normal conus medullaris that terminates at the L1/L2. L1-2: No change in the mild bilobed disc protrusion which produces mild spinal stenosis and mild bilateral neural foraminal stenosis. L2-3: Mild bilateral facet hypertrophy and moderate ligament flavum hypertrophy. No change in the 2 mm retrolisthesis of L2 on L3 with a mild bilobed disc protrusion which produces moderate spinal stenosis and mild bilateral neural foraminal stenosis. L3-4: Severe bilateral facet hypertrophy with a medially extending osteophyte from the right facet joint and a moderate broad disc protrusion producing severe spinal stenosis with severe right lateral recess stenosis and moderate bilateral neural foraminal stenosis. L4-5: Interval posterior decompression and transpedicular fixation with no change in the 5 mm of anterolisthesis of L4 and L5 with no spinal stenosis or neural foraminal stenosis. L5-S1: Normal endplates. Normal disc height, hydration and morphology. Normal bilateral facet joints. Normal central canal and bilateral lateral recesses. Normal bilateral intervertebral neural foramina. Normal visualized sacral ala. Normal visualized paraspinous soft tissue structures. MRI/Spine Lumbar (Routine) IMPRESSION: Interval posterior decompression and transpedicular fixation at L4/L5 with worsening dextroscoliosis and degenerative disc disease particularly at L3/L4. Electronically Signed: Eduardo Johnson MD at 15:57 EST Tel , Service support ,
== END ==
PROVIDERS: Family Provider Family Medicine; PCP Family Medicine; Referring Provider Family Medicine; Visit Provider Family Medicine
DX: S32.000A Wedge compression fracture of unspecified lumbar vertebra, initial encounter for closed fracture (principal)
CPT/HCPCS: 72148

== ENCOUNTER → 2019-11-06 11:02 | Outpatient (CLI) | payer MEDICARE, SELFPAY ==
[2019-06-16 13:16] VITALS: BMI 29.3
[2019-11-06 12:43] LABS: PTHIN 31.1 pg/mL (18.4-80.1)
== END ==
PROVIDERS: Family Provider Family Medicine; PCP Family Medicine; Visit Provider Family Medicine
DX: M81.8 Other osteoporosis without current pathological fracture (principal)
CPT/HCPCS: 36415; 83970

== ENCOUNTER → 2020-01-12 13:21 | Outpatient (CLI) | payer MEDICARE, SELFPAY ==
[2019-06-16 13:16] VITALS: BMI 29.3
--- NOTE | 2020-01-12 13:23 | CT_ITS ---
STUDY: CT BRAIN WITHOUT CONTRAST REASON FOR EXAM: Female, 79 years old. DIZZINESS EPISODES WHEN LYING DOWN,FACIAL NUMBNESS RADIATION DOSAGE (If Supplied By Facility): CTDIvol = ( 60.81 ) mGy, DLP = ( 1997.33 ) mGycm TECHNIQUE: Transaxial CT imaging of the brain was performed without administration of intravenous contrast material. Individualized dose optimization techniques were used for this CT. COMPARISON: No relevant priors. FINDINGS: Normal soft tissue structures. There is hyperostosis frontalis internus. There is mild cerebral atrophy with widening of the extra-axial spaces and ventricular dilatation. There are areas of decreased attenuation within the white matter tracts of the supratentorial brain, consistent with microvascular disease changes. Chronic lacunar infarct left basal ganglia. Normal brainstem. Normal cerebellum. There is no intracranial hemorrhage. There are no findings of an acute ischemic infarction. Normal visualized paranasal sinuses. CT/Brain/Head without Contrast IMPRESSION: Chronic involutional changes of the brain. Electronically Signed: Eduardo Johnson MD at 15:15 EST Tel , Service support ,
== END ==
PROVIDERS: PCP Family Medicine; Referring Provider Family Medicine; Visit Provider Family Medicine
DX: R42 Dizziness and giddiness (principal); R20.0 Anesthesia of skin
CPT/HCPCS: 70450

== ENCOUNTER → 2020-04-23 07:00 | Outpatient (CLI) | payer MEDICARE, SELFPAY ==
[2019-06-16 13:16] VITALS: BMI 29.3
--- NOTE | 2020-04-23 07:02 | BI_ITS ---
MAMMOGRAPHY - BILATERAL SCREENING REASON FOR EXAM: Female, 79 years old. Routine annual screening examination. PERTINENT HISTORY: Daughter with breast cancer. Sister with breast cancer. TECHNIQUE: Digital bilateral breast renay (3D mammographic acquisition) in the CC and MLO projections. 2-D mediolateral oblique (MLO) and craniocaudad (CC) views of both breasts were obtained. CAD: Full Field Digital Mammography with Computer Added Detection was performed. COMPARISON: Comparison is made with prior examination dated April 20, 2019 and April 12, 2018. FINDINGS: Breast Composition: There are scattered areas of fibroglandular density. There are no dominant masses or suspicious calcifications. Stable small benign appearing bilateral axillary lymph nodes. No other significant abnormalities are identified. There has been no significant change since the prior study. BI/SCREEN MAMM (CAD) W/RENAY BILAT IMPRESSION: Stable bilateral screening mammogram. Yearly follow-up mammogram recommended. (A) ASSESSMENT CATEGORY: BIRADS Category 2: Benign. A letter regarding these results will be sent to the patient by the facility within 30 days. Approximately 10% of breast cancers are not detected by mammography. A normal mammogram should not delay biopsy of a clinically suspicious abnormality. [id number] Electronically Signed: Dereck Cortes, at 9:05 EDT , Service support ,
== END ==
PROVIDERS: PCP Family Medicine; Referring Provider Family Medicine; Visit Provider Family Medicine
DX: Z12.31 Encounter for screening mammogram for malignant neoplasm of breast (principal)
CPT/HCPCS: 77063; 77067

== ENCOUNTER → 2020-05-13 08:54 | Outpatient (CLI) | payer MEDICARE, SELFPAY ==
[2019-06-16 13:16] VITALS: BMI 29.3
[2020-05-13 12:38] LABS: Absolute Lymphocyte Count 2.14 X10^3/uL (0.83-4.51); Absolute Neutrophil Count 3.6 X10^3/uL (2.0-7.7); Basophil# 0.05 X10^3/uL; Basophil% 0.8 % (0-1); Eosinophil# 0.17 X10^3/uL; Eosinophils% 2.6 % (0-5); Hematocrit 41.8 % (37-47); Hemoglobin 13.4 g/dL (12.0-15.0); Lymphocyte # 2.14 X10^3/ul (4.0); Mean Corp Hgb Conc 32.1 g/dL (32-36); Mean Corpuscular Volume 96.8 fL (81-99); Mean Platelet Vol. 10.7 fl (6.2-12.0); Monocyte# 0.47 X10^3/uL; Monocyte% 7.3 % (0-10); NRBC Flagged by Analyzer 0 % (0-5); Neutrophil # 3.64 X10^3/uL (2.7-7.7); Neutrophil % 56.1 % (47-70); Platelet Count 298 K/mm3 (150-450); RBC Distribution Width CV 13.3 % (11.6-14.6); RBC Distribution Width SD 47.4 fl (35.1-43.9); Red Blood Count 4.32 M/mm3 (4.2-5.4); White Blood Count 6.5 K/mm3 (4.4-11.0)
[2020-05-13 13:25] LABS: Vitamin D,25 Hydroxy 36.8 ng/mL
[2020-05-13 13:26] LABS: AST(SGOT) 33 U/L (15-37); Alanine Aminotransfer ALT/SGPT 42 U/L (13-56); Albumin, Serum 3.6 g/dL (3.2-5.0); Alkaline Phosphatase 65 U/L (45-117); Anion Gap 7 (5-15); BUN 30 mg/dL (7-18); BUN/Creat Ratio 29.1 RATIO (10-20); Chloride 105 mmol/L (98-107); Cholesterol 164 mg/dL (200); Creatinine, Serum 1.03 mg/dL (0.55-1.02); EST Glomerular Filtration Rate 55 mL/min (>60); Est Glom Filt Rate - Afr Amer 67 mL/min (>60); Globulin 3.7 g/dL (2.2-4.2); Glucose 91 mg/dL (74-106); High Density Lipoprotein 59 mg/dL; Potassium 4.1 mmol/L (3.5-5.1); Protein, Total 7.3 g/dL (6.4-8.2); Sodium Level 140 mmol/L (136-145); Triglycerides 136 mg/dL; Very Low Density Lipoprotein 27 mg/dL (5-40)
== END ==
PROVIDERS: PCP Family Medicine; Visit Provider Family Medicine
DX: E55.9 Vitamin D deficiency, unspecified (principal); E78.5 Hyperlipidemia, unspecified; M85.80 Other specified disorders of bone density and structure, unspecified site; Z51.81 Encounter for therapeutic drug level monitoring
CPT/HCPCS: 36415; 80053; 80061; 82306; 85025

== ENCOUNTER → 2020-06-26 09:26 | Outpatient (CLI) | payer MEDICARE, SELFPAY ==
[2019-06-16 13:16] VITALS: BMI 29.3
[2020-06-26 09:38] VITALS: BP 148/62; PULSE 60; RESP 16; TEMP 35.9; O2SAT 100; BMI 27.3
[2020-06-26] MEDS: DENOSUMAB 60 MG/ML SQ (09:59)
== END ==
PROVIDERS: PCP Family Medicine; Referring Provider Family Medicine; Visit Provider Family Medicine
DX: M81.0 Age-related osteoporosis without current pathological fracture (principal)
CPT/HCPCS: 96372; J0897

== ENCOUNTER → 2020-08-21 15:02 | Outpatient (CLI) ==
[2020-08-21 17:30] LABS: Vitamin B12 530 pg/mL (211-911)
[2020-08-21 17:38] LABS: Erythrocyte Sedimentation Rate 12 mm/hr (0-30)
[2020-08-21 17:54] LABS: ALB/GLOB Ratio 0.9 RATIO (0.9-2.4); AST(SGOT) 35 U/L (15-37); Alanine Aminotransfer ALT/SGPT 46 U/L (13-56); Albumin, Serum 3.6 g/dL (3.2-5.0); Alkaline Phosphatase 68 U/L (45-117); Anion Gap 4 (5-15); BUN 17 mg/dL (7-18); BUN/Creat Ratio 16.3 RATIO (10-20); CRP < 2.90 mg/L (0.0-3.0); Calcium,Total 9.4 mg/dL (8.5-10.1); Chloride 108 mmol/L (98-107); Creatinine, Serum 1.04 mg/dL (0.55-1.02); EST Glomerular Filtration Rate 54 mL/min (>60); Est Glom Filt Rate - Afr Amer 66 mL/min (>60); Glucose 91 mg/dL (74-106); Potassium 4.5 mmol/L (3.5-5.1); Protein, Total 7.6 g/dL (6.4-8.2); Sodium Level 142 mmol/L (136-145); Thyroid Stim Hormone (TSH) 1.27 uIU/mL (0.358-3.74)
== END ==
PROVIDERS: Psychiatry & Neurology Neurology
DX: G31.84 Mild cognitive impairment of uncertain or unknown etiology (principal)
CPT/HCPCS: 36415; 80053; 82607; 84443; 85652; 86140

== ENCOUNTER 2020-12-11 14:56 | Outpatient (RCR) | payer MEDICARE, SELFPAY ==
[2020-06-26 09:38] VITALS: BMI 27.3
== END 2020-12-11 23:59 ==
LOC: IMMUN 14:56
PROVIDERS: PCP Family Medicine; Visit Provider Family Medicine
DX: Z23 Encounter for immunization (principal)
CPT/HCPCS: 0012A

== ENCOUNTER 2020-12-31 10:21 | Outpatient (CLI) | payer MEDICARE, SELFPAY ==
[2020-06-26 09:38] VITALS: BMI 27.3
[2020-12-31 10:27] VITALS: BP 156/72; PULSE 64; RESP 16; TEMP 35.9; O2SAT 100; BMI 29.0
[2020-12-31] MEDS: DENOSUMAB 60 MG/ML SQ (10:33)
== END 2020-12-31 14:00 ==
LOC: MEDOUTP 10:23
PROVIDERS: PCP Family Medicine; Referring Provider Family Medicine; Visit Provider Family Medicine
DX: M81.0 Age-related osteoporosis without current pathological fracture (principal)
CPT/HCPCS: 96372; J0897

== ENCOUNTER → 2021-02-04 12:27 | Outpatient (CLI) | payer MEDICARE, SELFPAY ==
--- NOTE | 2021-02-04 12:28 | US_ITS ---
STUDY: SUPERFICIAL ULTRASOUND - PALPABLE LUMP ALONG THE RIGHT SIDE OF THE NECK. REASON FOR EXAM: Female, 80 years old. RIGHT NECK LUMP TECHNIQUE: A superficial ultrasound was performed with real-time and static robertson-scale imaging. COMPARISON: None. FINDINGS: The palpable area corresponds to 2 subcentimeter benign-appearing lymph nodes. The larger measures 7 mm x 6 mm x 4 mm. Incidental note is made of a calcified plaque at the bifurcation of the right carotid bulb. US/Head/Neck Soft Tissue IMPRESSION: The palpable abnormality corresponds to 2 subcentimeter benign-appearing lymph nodes. Calcific plaque at the bifurcation of the carotid bulb. Electronically Signed: Dereck Cortes MD at 15:33 EDT , Service support ,
== END ==
PROVIDERS: PCP Family Medicine; Referring Provider Family Medicine; Visit Provider Family Medicine
DX: R22.1 Localized swelling, mass and lump, neck (principal)
CPT/HCPCS: 76536

== ENCOUNTER → 2021-04-15 07:05 | Outpatient (CLI) | payer MEDICARE, SELFPAY ==
[2021-04-15 09:55] LABS: Absolute Lymphocyte Count 2.55 X10^3/uL (0.83-4.51); Absolute Neutrophil Count 3.4 X10^3/uL (2.0-7.7); Basophil# 0.05 X10^3/uL; Basophil% 0.7 % (0-1); Eosinophil# 0.29 X10^3/uL; Eosinophils% 4.2 % (0-5); Hematocrit 40.3 % (37-47); Hemoglobin 12.9 g/dL (12.0-15.0); Lymphocyte # 2.55 X10^3/ul (0.83-4.51); Lymphocyte % 37.2 % (19-41); Mean Corpuscular Hgb 30.2 pg (27.0-32.0); Mean Corpuscular Volume 94.4 fL (81-99); Mean Platelet Vol. 10.2 fl (6.2-12.0); Monocyte# 0.59 X10^3/uL; Monocyte% 8.6 % (0-10); NRBC Flagged by Analyzer 0 % (0-5); Neutrophil # 3.37 X10^3/uL (2.7-7.7); Neutrophil % 49.2 % (47-70); Platelet Count 288 K/mm3 (150-450); RBC Distribution Width CV 13.1 % (11.6-14.6); Red Blood Count 4.27 M/mm3 (4.2-5.4); White Blood Count 6.9 K/mm3 (4.4-11.0)
[2021-04-15 10:16] LABS: Vitamin D,25 Hydroxy 29.7 ng/mL
[2021-04-15 10:27] LABS: AST(SGOT) 24 U/L (15-37); Alanine Aminotransfer ALT/SGPT 29 U/L (13-56); Albumin, Serum 3.6 g/dL (3.2-5.0); Alkaline Phosphatase 54 U/L (45-117); Anion Gap 6 (5-15); BUN 18 mg/dL (7-18); Calcium,Total 8.3 mg/dL (8.5-10.1); Chloride 107 mmol/L (98-107); Cholesterol 146 mg/dL (200); Creatinine, Serum 1.06 mg/dL (0.55-1.02); EST Glomerular Filtration Rate 53 mL/min (>60); Est Glom Filt Rate - Afr Amer 64 mL/min (>60); Globulin 3.6 g/dL (2.2-4.2); Glucose 86 mg/dL (74-106); High Density Lipoprotein 62 mg/dL; Potassium 3.7 mmol/L (3.5-5.1); Protein, Total 7.2 g/dL (6.4-8.2); Sodium Level 140 mmol/L (136-145); Triglycerides 108 mg/dL; Very Low Density Lipoprotein 22 mg/dL (5-40)
== END ==
PROVIDERS: PCP Family Medicine; Referring Provider Family Medicine; Visit Provider Family Medicine
DX: E78.5 Hyperlipidemia, unspecified (principal); Z51.81 Encounter for therapeutic drug level monitoring; R53.83 Other fatigue; E55.9 Vitamin D deficiency, unspecified
CPT/HCPCS: 36415; 80053; 80061; 82306; 84443; 85025

== ENCOUNTER 2021-05-31 11:40 | Observation (INO) | payer MEDICARE, SELFPAY ==
[2021-05-31] VITALS (11 sets, daily range): BP systolic 116–165; BP diastolic 62–88; PULSE 49–70; RESP 14–18; TEMP 36.2–37.1; O2SAT 95–99; BMI 29.7; BMI 29.3
--- NOTE | 2021-05-31 12:11 | EKG12_ITS ---
Test Reason : WEAKNESS Blood Pressure : / mmHG Vent. Rate : 053 BPM Atrial Rate : 053 BPM P-R Int : 196 ms QRS Dur : 090 ms QT Int : 424 ms P-R-T Axes : 053 -10 033 degrees QTc Int : 397 ms Sinus bradycardia Otherwise normal ECG Confirmed by OLEG ROBISON, TEENA ([id number]), senior editor KATTY MAHAJAN ([id number]) on 06/03/2021 10:31:19 AM Referred By: Feliz Solorzano Confirmed By:TEENA DEJESUS MD
--- NOTE | 2021-05-31 12:11 | RAD_ITS ---
STUDY: X-RAY CHEST REASON FOR EXAM: Female, 80 years old. Altered mental status TECHNIQUE: Frontal view of the chest COMPARISON: 06/15/19 FINDINGS: The lungs are clear. There are no pleural effusions. There is no pneumothorax. The heart is normal in size. The visualized osseous structures are within normal limits. RAD/Chest 1 View IMPRESSION: No acute thoracic pathology. Electronically Signed: Harpreet Mcclure MD at 14:07 EDT Tel , Service support ,
--- NOTE | 2021-05-31 12:11 | CT_ITS ---
STUDY: CT BRAIN WITHOUT CONTRAST REASON FOR EXAM: Female, 80 years old. Altered mental status. Stroke alert. RADIATION DOSAGE (If Supplied By Facility): CTDIvol = ( 45 ) mGy, DLP = ( 745 ) mGycm TECHNIQUE: Transaxial CT imaging of the brain was performed without administration of intravenous contrast material. Individualized dose optimization techniques were used for this CT. COMPARISON: 01/12/20 FINDINGS: There is no acute bleed or infarct. There are stable chronic ischemic and atrophic changes. The ventricles are normal in configuration. There is no hydrocephalus. The visualized paranasal sinuses are clear. The mastoid air cells are well aerated. There is no skull fracture. CT/STROKE Brain/Head without Cont IMPRESSION: Stable mild chronic ischemic and atrophic changes. No acute intracranial abnormality. N.B. : The above Results were Read Back by Harpreet Mcclure MD to MD Andreia, and understanding confirmed on 05/31/2021 13:04:50 (ET). Electronically Signed: Harpreet Mcclure MD at 13:05 EDT Tel , Service support ,
--- NOTE | 2021-05-31 12:13 | EDS_ITS ---
HPI History of Present Illness Chief Complaint: Weakness Informant: patient and spouse/S.O. Onset/Context/Timing Onset: Yesterday (Or day before. See below.) Context: - (Unsure about onset exactly) Timing: Continuous Quality: Dizziness, spinning, off balance like going to fall Current Severity: Gone Maximum Severity: Severe Worsened by: Being upright and walking Relieved by: Lying down and resting Associated Symptoms Associated Symptoms: Nausea/vomiting once, mild frontal pressure-like headache, weakness in legs Narrative Narrative: Patient had a screening colonoscopy 2 mornings ago, and she has a history of slow recovery from anesthesia. She was awake and alert afterwards but basically felt fuzzy all day and that night although she was better that night. Yesterday she remembers at some point when she got up feeling dizzy and vertiginous, and very off balance. To walk around her bedroom she had to hold onto things that were against the wall, because of the severity of the vertigo symptoms to keep her from falling. She did not fall and have any injury. She is unclear exactly when the symptoms started and the only definite last known well was right before she was sedated for her scope, which was done here. She denies any abdominal pain, the nausea and vomiting occurred when her vertigo was more severe. 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 She does not take aspirin or any other anticoagulants, but it appears that she is on clopidogrel which the patient was unaware of when I asked her about her medications. She cannot remember if she has had vertigo before. She denies a known history of stroke. [facility] Medical History (Updated 05/31/21 @ 13:[address] Eron Boswell MD) HLD (hyperlipidemia) HTN (hypertension) Macular degeneration Obesity Home Medications Trandolapril [Mavik] 4 mg PO DAILY 12/17/15 [History Last Taken 12/30/15 06:00] hydrochlorothiazide 12.5 mg PO DAILY 12/17/15 [History Last Taken Unknown] atorvastatin 40 mg PO QHS #30 tab 06/16/19 [Rx Last Taken Unknown] clopidogrel 75 mg PO DAILY #30 tab 06/16/19 [Rx Last Taken Unknown] donepezil 5 mg PO QHS 06/26/20 [History Last Taken Unknown] gabapentin 100 mg PO DAILY 06/26/20 [History Last Taken Unknown] Allergy/AdvReac Type Severity Reaction Status Date / Time aspirin Allergy Unknown Verified 06/15/19 09:43 Surgical History (Updated 05/31/21 @ 12:25 by Ophelia Martini) Hx of cholecystectomy Social History Smoking Status: Never smoker ROS ROS ED Constitutional Constitutional ED: Denies chills or fever(s) Eyes Eyes: Denies change in vision or diplopia ENT ENT ED: Denies rhinorrhea or sore throat Cardiovascular Cardiovascular: Denies chest pain or palpitations Respiratory/Chest Respiratory/Chest: Denies cough or dyspnea Gastrointestinal Gastrointestinal: Reports nausea and vomiting; Denies abdominal pain or diarrhea Genitourinary Genitourinary ED: Denies dysuria or hematuria Musculoskeletal Musculoskeletal: Denies back pain or neck pain Integumentary Denies abscess or rash Neurologic Neurologic: Reports as per HPI, headache(s), vertigo and weakness; Denies paresthesias Psychiatric Psychiatric: Denies anxiety or suicidal thoughts EXAM Physical Exam Narrative Exam Narrative: NIH Stroke Scale/Score (NIHSS) from [employer] on 05/31/2021 All calculations should be rechecked by clinician prior to use RESULT SUMMARY: 1 points NIH Stroke Scale INPUTS: 1A: Level of consciousness ?> 0 = Alert; keenly responsive 1B: Ask month and age ?> 0 = Both questions right 1C: 'Blink eyes' & 'squeeze hands' ?> 0 = Performs both tasks 2: Horizontal extraocular movements ?> 0 = Normal 3: Visual laura ?> 0 = No visual loss 4: Facial palsy ?> 0 = Normal symmetry 5A: Left arm motor drift ?> 0 = No drift for 10 seconds 5B: Right arm motor drift ?> 0 = No drift for 10 seconds 6A: Left leg motor drift ?> 0 = No drift for 5 seconds 6B: Right leg motor drift ?> 0 = No drift for 5 seconds 7: Limb Ataxia ?> 0 = No ataxia 8: Sensation ?> 0 = Normal; no sensory loss 9: Language/aphasia ?> 1 = Mild-moderate aphasia: some obvious changes, without significant limitation 10: Dysarthria ?> 0 = Normal 11: Extinction/inattention ?> 0 = No abnormality Const Vital Signs: 05/31/21 11:41 05/31/21 12:24 Temperature 97.1 F L Temperature Source Temporal Pulse Rate 61 Respiratory Rate 14 Respiratory Effort Normal Non-Labored Blood Pressure 128/88 H Blood Pressure Mean 101 Pulse Ox 99 95 Oxygen Delivery Method Room Air Room Air Positive well nourished and well developed General Appearance ED: well developed and NAD HEENT Reports moist mucous membranes normocephalic and atraumatic Eyes PERRL and EOMs intact bilaterally Neck full ROM and supple Resp normal respiratory effort and clear to auscultation bilaterally Cardio regular rate, regular rhythm and no murmurs GI non-tender and non-distended Auscultation: normoactive bowel sounds Palpation: soft Back/Spine no CVA tenderness General Back: other FROM Extremity normal to inspection General Extremety ED: Negative for edema, pulses abnormal or tenderness General Extremity: Negative for edema or pulses abnormal Neuro oriented x3, CN's II-XII intact bilaterally and no sensory deficits noted Neuro Narrative: Asked her several times to say no if's, and's, or but's and she messes it up a different way each time. No slurred speech. Normal [id number] and [id number] bilaterally. Normal strength and sensation. Sensorium / Orientation: awake and alert Motor Exam: strength 5/5 throughout Skin no rashes or lesions noted and no wounds MDM MDM MDM Narrative Medical decision making narrative: [place]on-Hallpike maneuver was performed and was negative to both sides, with no nystagmus or reproduction of symptoms. I am concerned about central source of vertigo. Stroke work-up obtained, but no stroke team or CT angiography performed given the timing which is unclear as to whether she is within the 24-hour window or not; since she is outside of the 4.5-hour window she is certainly not an IV TPA candidate. Work-up is negative, however this does not rule out the possibility of acute/subacute ischemic stroke. Will admit for further evaluation and MRI which is not available emergently at this time. Lab Data Attestation: I reviewed the patient's lab results. Labs: Laboratory Results - last 24 hr 05/31/21 05/31/21 05/31/21 13:10 13:10 13:10 WBC 7.7 RBC 4.57 Hgb 13.8 Hct 42.0 MCV 91.9 MCH 30.2 MCHC 32.9 RDW Std Deviation 42.1 RDW Coeff of [place] 12.5 Plt Count 278 MPV 9.8 Immature Gran % (Auto) 0.400 Neut % (Auto) 56.1 Lymph % (Auto) 31.3 [place] % (Auto) 8.8 Eos % (Auto) 2.5 Baso % (Auto) 0.9 Absolute Neuts (auto) 4.3 Absolute Lymphs (auto) 2.42 Nucleated RBC % 0 PT 12.4 INR 1.0 APTT 26.7 Sodium 138 Potassium 3.9 Chloride 106 Carbon Dioxide 28.0 Anion Gap 4 L BUN 15 Creatinine 0.99 Estim Creat Clear Calc 46.85 Est GFR (MDRD) Af Amer 69 Est GFR (MDRD) Non-Af 57 L BUN/Creatinine Ratio 15.1 Glucose 87 Calcium 9.4 Troponin I High Sens 5.2 Radiography Diagnostic Testing: Radiology Impression Brain CT 05/31/21 12:11 IMPRESSION: Stable mild chronic ischemic and atrophic changes. No acute intracranial abnormality. N.B. : The above Results were Read Back by Harpreet Mcclure MD to MD Andreia, and understanding confirmed on 05/31/2021 13:04:50 (ET). Electronically Signed: Harpreet Mcclure MD at 13:05 EDT Tel , Service support , ADDENDUM: 05/31/21 1312 IMPRESSION: Stable mild chronic ischemic and atrophic changes. No acute intracranial abnormality. N.B. : The above Results were Read Back by Harpreet Mcclure MD to MD Andreia, and understanding confirmed on 05/31/2021 13:04:50 (ET). Electronically Signed: Harpreet Mcclure MD at 13:05 EDT Tel , Service support , EKG Initial EKG: Attestation: I personally reviewed and interpreted this EKG as follows: Interpretation: Sinus Rhythm, No Acute Injury Pattern and Sinus Bradyc ardia Prior EKG tracings: available for review Prior: Unchanged Discharge Plan Triage Chief Complaint: Weakness ED Provider: Eron Boswell Dx/Rx/DC Orders Clinical Impression: Vertigo, central Prescriptions: No Action hydrochlorothiazide 25 MG tablet 12.5 mg PO DAILY RF: 0 Trandolapril [Mavik] 4 MG tablet 4 mg PO DAILY RF: 0 clopidogrel 75 MG tablet 75 mg PO DAILY Qty: 30 RF: 0 atorvastatin 40 MG tablet 40 mg PO QHS Qty: 30 RF: 0 gabapentin 100 MG capsule 100 mg PO DAILY RF: 0 donepezil 5 MG tablet 5 mg PO QHS RF: 0 Primary Care Provider: Liane Stephenson Referrals: Liane Stephenson DO [Primary Care Provider] - Disposition Disposition: Acute Care Hospital [facility]
[2021-05-31 13:14] LABS: Absolute Lymphocyte Count 2.42 X10^3/uL (0.83-4.51); Absolute Neutrophil Count 4.3 X10^3/uL (2.0-7.7); Basophil# 0.07 X10^3/uL; Basophil% 0.9 % (0-1); Eosinophil# 0.19 X10^3/uL; Eosinophils% 2.5 % (0-5); Hemoglobin 13.8 g/dL (12.0-15.0); Lymphocyte # 2.42 X10^3/ul (0.83-4.51); Lymphocyte % 31.3 % (19-41); Mean Corp Hgb Conc 32.9 g/dL (32-36); Mean Corpuscular Hgb 30.2 pg (27.0-32.0); Mean Corpuscular Volume 91.9 fL (81-99); Mean Platelet Vol. 9.8 fl (6.2-12.0); Monocyte# 0.68 X10^3/uL; Monocyte% 8.8 % (0-10); NRBC Flagged by Analyzer 0 % (0-5); Neutrophil # 4.33 X10^3/uL (2.7-7.7); Neutrophil % 56.1 % (47-70); Platelet Count 278 K/mm3 (150-450); RBC Distribution Width CV 12.5 % (11.6-14.6); RBC Distribution Width SD 42.1 fl (35.1-43.9); Red Blood Count 4.57 M/mm3 (4.2-5.4); White Blood Count 7.7 K/mm3 (4.4-11.0)
[2021-05-31 13:22] LABS: Prothrombin Time (Protime)PT. 12.4 SECONDS (11.7-14.9)
[2021-05-31 13:23] LABS: Partial Thromboplast Time 26.7 Seconds (24.1-36.2)
[2021-05-31 13:35] LABS: Anion Gap 4 (5-15); BUN 15 mg/dL (7-18); BUN/Creat Ratio 15.1 RATIO (10-20); Calcium,Total 9.4 mg/dL (8.5-10.1); Chloride 106 mmol/L (98-107); Creatinine, Serum 0.99 mg/dL (0.55-1.02); EST Glomerular Filtration Rate 57 mL/min (>60); Est Glom Filt Rate - Afr Amer 69 mL/min (>60); Estimated Creatinine Clearance 46.85 ml/min; Glucose 87 mg/dL (74-106); Potassium 3.9 mmol/L (3.5-5.1); Sodium Level 138 mmol/L (136-145); Troponin-I HS 5.2 pg/mL (3.0-53.7)
--- NOTE | 2021-05-31 14:55 | PCM.HP.STD ---
HPI - General General Date of Admission: 05/31/21 HPI Narrative MELYSSA GUERRERO, is a 80 F who ED with weakness, nausea and vomiting, dizziness and vertigo. She had colonoscopy on and she feels weak and slept night and mostly Wednesday. When she woke up and stand up she feels dizzy lightheaded and vertigo, wobbly gait. She does not have history of disequilibrium or vertigo and does not use his cane or walker. Denies any prior history of a stroke, coronary artery disease or ND. No fall. She had one-time vomiting after having dinner yesterday. No abdominal pain. Denies burning micturition or UTI symptoms Twelve-lead EKG shows sinus bradycardia at 53 beats minute. QTc [address] head shows no acute bleed or infarct. Stable chronic ischemic and atrophic changes. As per the patient, there was no red flag in the colonoscopy findings. [facility] Medical History HLD (hyperlipidemia) HTN (hypertension) Macular degeneration Obesity Home Medications Trandolapril [Mavik] 4 mg PO DAILY 12/17/15 [History Last Taken 12/30/15 06:00] hydrochlorothiazide 12.5 mg PO DAILY 12/17/15 [History Last Taken Unknown] atorvastatin 40 mg PO QHS #30 tab 06/16/19 [Rx Last Taken Unknown] clopidogrel 75 mg PO DAILY #30 tab 06/16/19 [Rx Last Taken Unknown] Allergy/AdvReac Type Severity Reaction Status Date / Time aspirin Allergy Unknown Verified 06/15/19 09:43 Surgical History Hx of cholecystectomy Social History Smoking Status: Never smoker ROS ROS Narrative Constitutional: Reports fatigue and generalized weakness. Dizziness as mentioned in HPI HEENT: Reports systems reviewed and no addt'l complaints, except as documented Respiratory/Chest: Denies shortness of breath at rest, exertion or chest pressure Gastrointestinal: One-time gastric vomiting. Genitourinary: Denies burning urination or new urinary symptoms Musculoskeletal: Reports joint pain and limited range of motion Neurologic: Denies seizure-like activity. No weakness, paresthesia, numbness or tingling. No problem in speech/language deficit, dysphagia, dysarthria. skin: No ulcer. No rash Endocrinology: Reports systems reviewed and no addt'l complaints, except as documented Hematologic/Lymphatic: Reports systems reviewed and no addt'l complaints, except as documented Rest 12 ROS are negative except as mentioned in HPI Vital Signs Vital Signs Vital Signs: 05/31/21 11:41 05/31/21 12:24 05/31/21 14:00 Temperature 97.1 F L 98.7 F Temperature Source Temporal Oral Pulse Rate 61 57 L Respiratory Rate 14 18 Respiratory Effort Normal Non-Labored Blood Pressure 128/88 H 141/72 H Blood Pressure Mean 101 95 Pulse Ox 99 95 97 Oxygen Delivery Method Room Air Room Air Room Air Weight Weight: 141 lb 15.643 oz Body Mass Index (BMI) 29.7 Physical Exam Narrative General: Alert, Oriented x3, Cooperative HEENT: Atraumatic, PERRLA, EOMI, Normocephalic Oral: Oral mucosa dry, dehydrated no Gingival or Mucosal Lesions/ Ulcerations Neck: Supple, No JVD, Negative Carotid Bruits Lungs: Air entry equal in bilateral lung bases. No crepitation/rhonchi Cardiovascular: Regular rate, Regular Rhythm, Normal S1, Normal S2, No murmurs Abdomen: Bowel Sounds Present, Soft, Non Tender, Non-Distended : No renal angle tenderness. No suprapubic tenderness. Extremities: No edema, Capillary Refill Less than 3 Seconds Skin: No rashes, No breakdown Musculoskeletal/spine: No Tenderness to Palpation of Joints or Extremities. Surgical scar my lumbar spine, old Neurological: Cranial nerves II-XII grossly intact, Deep Tendon Reflexes 2+/4, muscle strength 5/5. Dysuria. Psych/Mental Status: Normal Affect, Appropriate. Results Lab / Micro Data Result Diagrams: 05/31/21 13:10 05/31/21 13:10 Labs: Laboratory Results - last 24 hr 05/31/21 13:10: WBC 7.7, RBC 4.57, Hgb 13.8, Hct 42.0, MCV 91.9, MCH 30.2, MCHC 32.9, RDW Std Deviation 42.1, RDW Coeff of [place] 12.5, Plt Count 278, MPV 9.8, Immature Gran % (Auto) 0.400, Neut % (Auto) 56.1, Lymph % (Auto) 31.3, [place] % (Auto) 8.8, Eos % (Auto) 2.5, Baso % (Auto) 0.9, Absolute Neuts (auto) 4.3, Absolute Lymphs (auto) 2.42, Nucleated RBC % 0 05/31/21 13:10: PT 12.4, INR 1.0, APTT 26.7 05/31/21 13:10: Sodium 138, Potassium 3.9, Chloride 106, Carbon Dioxide 28.0, Anion Gap 4 L, BUN 15, Creatinine 0.99, Estim Creat Clear Calc 46.85, Est GFR (MDRD) Af Amer 69, Est GFR (MDRD) Non-Af 57 L, BUN/Creatinine Ratio 15.1, Glucose 87, Calcium 9.4, Troponin I High Sens 5.[address] 05/31/21 12:11 IMPRESSION: Stable mild chronic ischemic and atrophic changes. No acute intracranial abnormality. N.B. : The above Results were Read Back by Harpreet Mcclure MD to MD Andreia, and understanding confirmed on 05/31/2021 13:04:50 (ET). Electronically Signed: Harpreet Mcclure MD at 13:05 EDT Tel , Service support , ADDENDUM: 05/31/21 1312 IMPRESSION: Stable mild chronic ischemic and atrophic changes. No acute intracranial abnormality. N.B. : The above Results were Read Back by Harpreet Mcclure MD to MD Andreia, and understanding confirmed on 05/31/2021 13:04:50 (ET). Electronically Signed: Harpreet Mcclure MD at 13:05 EDT Tel , Service support , Chest X-Ray 05/31/21 12:11 IMPRESSION: No acute thoracic pathology. Electronically Signed: Harpreet Mcclure MD at 14:07 EDT Tel , Service support , Assessment & Plan Assessment/Plan (1) Vertigo, central: PLAN: This is 80-year-old female admitted for vertigo, dizziness and dysmetria after colonoscopy for about 1 day. 1. Vertigo: ER physician tried [place]-Hallpike maneuver but patient did not feel better. Patient being in PCU. MRI brain ordered. If it comes positive we will do further work-up. I feel this mainly due to dehydration from colonoscopy prep. IV fluid Ringer lactate 100 mL/h for 2 L. Monitor intake and output. NIH stroke scale. Patient on clopidogrel atorvastatin at home continued. 2. History of transient loss of vision in remote past: Exact cause unclear. 3. Hypertension: Blood pressure is controlled. On HCTZ held. 4. Dyslipidemia on atorvastatin 40 mg daily. VTE prophylaxis: Lovenox 40 subcu daily. Living will/advanced directive/end of life care: Patient thinks she has living will or advanced directive but not sure. After discussion of benefits/risks procedures involved with full code, DNR CC arrest and DNR CC, the patient is not sure about either of them now but wants to talk to the first and will let us know. By default, will make her full code until further decision made. Patient is not clear about artificial life support including intubation, tube feed, ventilator and/chest compression, central venous catheter, vasopressor and DC shock if needed Total time spent in [id number] encounter in discussion of advanced directive 16 minutes. Charges/Coding Visit Charges Inpatient E&M: 59922 Init Hosp L3 Procedures Hospitalists Procedures: 08569 Advncd Care Plan 30 Min
[2021-05-31] MEDS: Lactated Ringers 1,000 ML 100 ML IV (15:43)
[2021-05-31 15:48] LABS: Magnesium 1.8 mg/dL (1.6-2.6); Troponin-I HS 5.1 pg/mL (3.0-53.7)
[2021-05-31] MEDS: Donepezil HCl 5 MG Tablet PO (21:59)
[2021-05-31] MEDS: Atorvastatin Calcium 40 MG Tablet PO (21:59)
[2021-06-01] VITALS (7 sets, daily range): BP systolic 98–153; BP diastolic 59–88; PULSE 50–99; RESP 12–16; TEMP 36.6–36.7; O2SAT 96–100; BMI 29.3
[2021-06-01] MEDS: Lactated Ringers 1,000 ML 100 ML IV (01:03)
[2021-06-01 07:10] LABS: Cholesterol 127 mg/dL (200); High Density Lipoprotein 49 mg/dL; Triglycerides 118 mg/dL; Very Low Density Lipoprotein 24 mg/dL (5-40)
[2021-06-01] MEDS: Clopidogrel Bisulfate 75 MG Tablet PO (09:34)
[2021-06-01] MEDS: Enoxaparin 30 MG/0.3 ML Syringe SC (09:34)
--- NOTE | 2021-06-01 10:00 | MRI_ITS ---
STUDY: MRI BRAIN WITHOUT CONTRAST REASON FOR EXAM: Female, 80 years old. Ataxia, vertigo TECHNIQUE: Standardized multiplanar fat and water weighted pulse sequences were obtained. COMPARISON: CT 05/31/2021, MRI 06/15/2019 FINDINGS: There is moderate cerebral atrophy with widening of the extra-axial spaces and ventricular dilatation. There are multiple white matter hyperintensities, distributed throughout the deep white matter tracts of the cerebral hemispheres, consistent with moderate chronic white matter ischemic changes. There is no evidence for recent intracranial ischemia or other cause of cytotoxic edema on diffusion weighted imaging (DWI). Normal T2* images of the brain without demonstrated susceptibility artifact. There is no demonstrated hemosiderin stain. Normal bilateral basal ganglia. Normal thalami. There is no extra-axial fluid accumulation. Normal flow voids within the major intracranial circulation suggesting patency by spin echo criteria. Normal sella turcica, pituitary gland, infundibular stalk, optic chiasm and hypothalamus. Normal tectal plate and pineal gland. Normal midbrain, nehemias and medulla. Normal cerebellum. Normal basal cisterns. Normal bilateral temporal bones. Normal bilateral internal auditory canals. There are bilateral ocular lens implants with otherwise normal intraorbital contents. Normal visualized paranasal sinuses. Normal calvarium and skull base. Normal visualized soft tissue structures. Normal visualized upper cervical spine. MRI/Brain without Contrast IMPRESSION: Involutional changes of the brain, as described above. No acute infarct. Electronically Signed: Eduardo Johnson MD at 11:38 EDT Tel , Service support ,
--- NOTE | 2021-06-01 11:12 | PCM.DC ---
Discharge Instructions Diet Discharge Diet: 2000 mg Sodium Diet Activity Discharge Activity: Return to Normal Activity and May Not Drive Weight Bearing Status: Weight bearing as tolerated Dressing / Incision Call your doctor if you observe: Fever of 101 or Higher, Coldness, Increased Pain, Numbness or Tingling, Change in Color, Inability to urinate, Inability to have a bowel movement, Shortness of breath, Dizziness, Fainting spells, Swelling in the ankles, Chest pain, Prolonged hiccupping, Increased palpitations (irregular heartbeat), Calf discomfort and Uncontrolled pain Follow Up Care Test Results: Test results from this visit will be discussed in further detail at your follow-up appointment, if applicable. Discharge Plan Admission Admit Date/Time: 05/31/21 13:50 Primary Reason for Your Visit: Vertigo Attending Provider: Feliz Solorzano Primary Care Provider: Liane Stephenson Instructions Patient Instructions: Vertigo Staying Safe Discharge Orders/Prescriptions Prescriptions: New meclizine 12.5 mg tablet 12.5 mg PO .4 TIMES DAILY PRN (Reason: dizziness) Qty: 30 RF: 0 Continued hydrochlorothiazide 25 MG tablet 12.5 mg PO DAILY RF: 0 Trandolapril [Mavik] 4 MG tablet 4 mg PO DAILY RF: 0 clopidogrel 75 MG tablet 75 mg PO DAILY Qty: 30 RF: 0 atorvastatin 40 MG tablet 40 mg PO QHS Qty: 30 RF: 0 Referrals / Follow Up: Liane Stephenson DO [Primary Care Provider] - Within 2 Weeks Disposition Disposition (needs filled in before D/C Order can be placed): Home, Self Care
--- NOTE | 2021-06-01 11:12 | DS.PCM_ITS ---
Providers Date of Admission: 05/31/21 Primary Care Physician: Dr. Liane Stephenson, DO Reason For Visit: CENTRAL VERTIGO Diagnosis Discharge Diagnosis (1) Vertigo, central: Status: Acute Code(s): H81.4 - Vertigo of central origin Medications at Discharge Home Medications Trandolapril [Mavik] 4 mg PO DAILY 12/17/15 hydrochlorothiazide 12.5 mg PO DAILY 12/17/15 atorvastatin 40 mg PO QHS #30 tab 06/16/19 clopidogrel 75 mg PO DAILY #30 tab 06/16/19 meclizine 12.5 mg PO .4 TIMES DAILY PRN #30 tab 06/01/21 Hospital Course Summary of Care Provided Hospital Course: This is 80-year-old female admitted for vertigo, dizziness and dysmetria after colonoscopy for about 1 day. 1. Vertigo: ER physician tried Ayo-Hallpike maneuver but patient did not feel better. Patient being in PCU. MRI brain was done was negative for acute infarct or bleed. It shows chronic changes of ventricular dilation and moderate atrophy suggestive of dementia. IV fluid Ringer lactate 100 mL/h for 2 L for dehydration. NIH stroke scale was 0. Patient on clopidogrel atorvastatin at home continued. 2. History of transient loss of vision in remote past: Exact cause unclear. 3. Hypertension: Blood pressure is controlled. On HCTZ held. 4. Dyslipidemia on atorvastatin 40 mg daily. VTE prophylaxis: Lovenox 40 subcu daily. [facility] [id number] [place] [address] H&P Exam - Mmapxvuuhki78/24/21 1455#: [id number]:[id number]:MELYSSA GUERRERO [facility] #:[id number]: [id number]: Feliz Solorzano MDPCP:Dr. Liane Stephenson DO Status:ADM INOLocation: [id number] HPI - General General Date of Admission: 05/31/21 HPI Narrative MELYSSA GUERRERO, is a 80 F who ED with weakness, nausea and vomiting, dizziness and vertigo. She had colonoscopy on and she feels weak and slept night and mostly Wednesday. When she woke up and stand up she feels dizzy lightheaded and vertigo, wobbly gait. She does not have history of disequilibrium or vertigo and does not use his cane or walker. Denies any prior history of a stroke, coronary artery disease or MS. No fall. She had one-time vomiting after having dinner yesterday. No abdominal pain. Denies burning micturition or UTI symptoms Twelve-lead EKG shows sinus bradycardia at 53 beats minute. QTc [address] head shows no acute bleed or infarct. Stable chronic ischemic and atrophic changes. As per the patient, there was no red flag in the colonoscopy findings. [facility] Medical History HLD (hyperlipidemia) HTN (hypertension) Macular degeneration Obesity Home Medications Trandolapril [Mavik] 4 mg PO DAILY 12/17/15 [History Last Taken 12/30/15 06:00] hydrochlorothiazide 12.5 mg PO DAILY 12/17/15 [History Last Taken Unknown] atorvastatin 40 mg PO QHS #30 tab 06/16/19 [Rx Last Taken Unknown] clopidogrel 75 mg PO DAILY #30 tab 06/16/19 [Rx Last Taken Unknown] Allergy/AdvReac Type Severity Reaction Status Date / Time aspirin Allergy Unknown Verified 06/15/19 09:43 Surgical History Hx of cholecystectomy Social History Smoking Status: Never smoker ROS ROS Narrative Constitutional: Reports fatigue and generalized weakness. Dizziness as m entioned in HPI HEENT: Reports systems reviewed and no addt'l complaints, except as documented Respiratory/Chest: Denies shortness of breath at rest, exertion or chest pressure Gastrointestinal: One-time gastric vomiting. Genitourinary: Denies burning urination or new urinary symptoms Musculoskeletal: Reports joint pain and limited range of motion Neurologic: Denies seizure-like activity. No weakness, paresthesia, numbness or tingling. No problem in speech/language deficit, dysphagia, dysarthria. skin: No ulcer. No rash Endocrinology: Reports systems reviewed and no addt'l complaints, except as documented Hematologic/Lymphatic: Reports systems reviewed and no addt'l complaints, except as documented Rest 12 ROS are negative except as mentioned in HPI Vital Signs Vital Signs Vital Signs: 05/31/21 11:41 05/31/21 12:24 05/31/21 14:00 Temperature 97.1 F L 98.7 F Temperature Source Temporal Oral Pulse Rate 61 57 L Respiratory Rate 14 18 Respiratory Effort Normal Non-Labored Blood Pressure 128/88 H 141/72 H Blood Pressure Mean 101 95 Pulse Ox 99 95 97 Oxygen Delivery Method Room Air Room Air Room Air Weight Weight: 141 lb 15.643 oz Body Mass Index (BMI) 29.7 Physical Exam Narrative General: Alert, Oriented x3, Cooperative HEENT: Atraumatic, PERRLA, EOMI, Normocephalic Oral: Oral mucosa dry, dehydrated no Gingival or Mucosal Lesions/ Ulcerations Neck: Supple, No JVD, Negative Carotid Bruits Lungs: Air entry equal in bilateral lung bases. No crepitation/rhonchi Cardiovascular: Regular rate, Regular Rhythm, Normal S1, Normal S2, No murmurs Abdomen: Bowel Sounds Present, Soft, Non Tender, Non-Distended : No renal angle tenderness. No suprapubic tenderness. Extremities: No edema, Capillary Refill Less than 3 Seconds Skin: No rashes, No breakdown Musculoskeletal/spine: No Tenderness to Palpation of Joints or Extremities. Surgical scar my lumbar spine, old Neurological: Cranial nerves II-XII grossly intact, Deep Tendon Reflexes 2+/4, muscle strength 5/5. Dysuria. Psych/Mental Status: Normal Affect, Appropriate. Results Lab / Micro Data Result Diagrams: 05/31/21 13:10 document embedded image 05/31/21 13:10 document embedded image Labs:Laboratory Results - last 24 hr 05/31/21 13:10: WBC 7.7, RBC 4.57, Hgb 13.8, Hct 42.0, MCV 91.9, MCH 30.2, MCHC 32.9, RDW Std Deviation 42.1, RDW Coeff of [place] 12.5, Plt Count 278, MPV 9.8, Immature Gran % (Auto) 0.400, Neut % (Auto) 56.1, Lymph % (Auto) 31.3, [place] % (Auto) 8.8, Eos % (Auto) 2.5, Baso % (Auto) 0.9, Absolute Neuts (auto) 4.3, Absolute Lymphs (auto) 2.42, Nucleated RBC % 0 05/31/21 13:10: PT 12.4, INR 1.0, APTT 26.7 05/31/21 13:10: Sodium 138, Potassium 3.9, Chloride 106, Carbon Dioxide 28.0, Anion Gap 4 L, BUN 15, Creatinine 0.99, Estim Creat Clear Calc 46.85, Est GFR (MDRD) Af Amer 69, Est GFR (MDRD) Non-Af 57 L, BUN/Creatinine Ratio 15.1, Glucose 87, Calcium 9.4, Troponin I High Sens 5.[address] 05/31/21 12:11 IMPRESSION: Stable mild chronic ischemic and atrophic changes. No acute intracranial abnormality. N.B. : The above Results were Read Back by Harpreet Mcclure MD to MD Andreia, and understanding confirmed on 05/31/2021 13:04:50 (ET). Electronically Signed: Harpreet Mcclure MD at 13:05 EDT Tel , Service support , ADDENDUM: 05/31/21 1312 IMPRESSION: Stable mild chronic ischemic and atrophic changes. No acute intracranial abnormality. N.B. : The above Results were Read Back by Harpreet Mcclure MD to MD Andreia, and understanding confirmed on 05/31/2021 13:04:50 (ET). Electronically Signed: Harpreet Mcclure MD at 13:05 EDT Tel , Service support , Chest X-Ray 05/31/21 12:11 IMPRESSION: No acute thoracic pathology. Electronically Signed: Harpreet Mcclure MD at 14:07 EDT Tel , Service support , Assessment & Plan Assessment/Plan (1) Vertigo, central: PLAN: This is 80-year-old female admitted for vertigo, dizziness and dysmetria after colonoscopy for about 1 day. 1. Vertigo: ER physician tried Ayo-Hallpike maneuver but patient did not feel better. Patient being in PCU. MRI brain ordered. If it comes positive we will do further work-up. I feel this mainly due to dehydration from colonoscopy prep . IV fluid Ringer lactate 100 mL/h for 2 L. Monitor intake and output. NIH stroke scale. Patient on clopidogrel atorvastatin at home continued. 2. History of transient loss of vision in remote past: Exact cause unclear. 3. Hypertension: Blood pressure is controlled. On HCTZ held. 4. Dyslipidemia on atorvastatin 40 mg daily. VTE prophylaxis: Lovenox 40 subcu daily. Discharge medication reconciliation done. Discharge follow-up instructions completed. Discharge process discussed with the patient and all questions were answered to patient's satisfaction. Discharged home. Patient did well on walking. The prescription for Antivert was given Total time spent, exact 35 minutes on discharge meds reconciliation, examination, coordination of care with nurses and ancillary staff, review of imaging and blood test and discussion with the patient on follow-up instructions Living will/advanced directive/end of life care: Patient does not have living will or advanced directive. After discussion of benefits/risks procedures involved with full code, DNR CC arrest and DNR CC, the patient and her opted for full code Patient does want artificial life support including intubation, tube feed, ventilator and/chest compression, central venous catheter, vasopressor and DC shock if needed Total time spent in [id number] encounter in discussion of advanced directive 16 minutes. Physical Exam Narrative Seen and examined Patient dizziness resolved. Orthostatic blood pressure was negative. General: Alert, Oriented x3, Cooperative HEENT: Atraumatic, PERRLA, EOMI, Normocephalic Oral: Oral mucosa dry, dehydrated no Gingival or Mucosal Lesions/ Ulcerations Neck: Supple, No JVD, Negative Carotid Bruits Lungs: Air entry equal in bilateral lung bases. No crepitation/rhonchi Cardiovascular: Regular rate, Regular Rhythm, Normal S1, Normal S2, No murmurs Abdomen: Bowel Sounds Present, Soft, Non Tender, Non-Distended : No renal angle tenderness. No suprapubic tenderness. Extremities: No edema, Capillary Refill Less than 3 Seconds Skin: No rashes, No breakdown Musculoskeletal/spine: No Tenderness to Palpation of Joints or Extremities. Surgical scar my lumbar spine, old Neurological: Cranial nerves II-XII grossly intact, Deep Tendon Reflexes 2+/4, muscle strength 5/5. Dysuria. Psych/Mental Status: Normal Affect, Appropriate. Weight / BMI Weight Weight: 140 lb 6.951 oz Body Mass Index (BMI) 29.3 ABG / Lab / Microbiology Data Result Diagrams: 05/31/21 13:10 05/31/21 13:10 Laboratory: Laboratory Results - last 24 hr 05/31/21 13:10: WBC 7.7, RBC 4.57, Hgb 13.8, Hct 42.0, MCV 91.9, MCH 30.2, MCHC 32.9, RDW Std Deviation 42.1, RDW Coeff of [place] 12.5, Plt Count 278, MPV 9.8, Immature Gran % (Auto) 0.400, Neut % (Auto) 56.1, Lymph % (Auto) 31.3, [place] % (Auto) 8.8, Eos % (Auto) 2.5, Baso % (Auto) 0.9, Absolute Neuts (auto) 4.3, Absolute Lymphs (auto) 2.42, Nucleated RBC % 0 05/31/21 13:10: PT 12.4, INR 1.0, APTT 26.7 05/31/21 13:10: Sodium 138, Potassium 3.9, Chloride 106, Carbon Dioxide 28.0, Anion Gap 4 L, BUN 15, Creatinine 0.99, Estim Creat Clear Calc 46.85, Est GFR (MDRD) Af Amer 69, Est GFR (MDRD) Non-Af 57 L, BUN/Creatinine Ratio 15.1, Glucose 87, Calcium 9.4, Troponin I High Sens 5.2 05/31/21 15:27: Magnesium 1.8, Troponin I High Sens 5.1 06/01/21 06:01: Triglycerides 118, Cholesterol 127, LDL Cholesterol 54, VLDL Cholesterol 24, HDL Cholesterol 49 Radiography Diagnostic Testing: Radiology Impression Brain CT 05/31/21 12:11 IMPRESSION: Stable mild chronic ischemic and atrophic changes. No acute intracranial abnormality. N.B. : The above Results were Read Back by Harpreet Mcclure MD to MD Andreia, and understanding confirmed on 05/31/2021 13:04:50 (ET). Electronically Signed: Harpreet Mcclure MD at 13:05 EDT Tel , Service support , ADDENDUM: 05/31/21 1312 IMPRESSION: Stable mild chronic ischemic and atrophic changes. No acute intracranial abnormality. N.B. : The above Results were Read Back by Harpreet Mcclure MD to MD Andreia, and understanding confirmed on 05/31/2021 13:04:50 (ET). Electronically Signed: Harpreet Mcclure MD at 13:05 EDT Tel , Service support , Chest X-Ray 05/31/21 12:11 IMPRESSION: No acute thoracic pathology. Electronically Signed: Harpreet Mcclure MD at 14:07 EDT Tel , Service support , Meaningful Use Info Meaningful Use Diagnoses (Choose all that apply): None applicable Discharge Plan Admission Admit Date/Time: 05/31/21 13:50 Primary Reason for Your Visit: Vertigo Attending Provider: Feliz Solorzano Primary Care Provider: Liane Stephenson Instructions Patient Instructions: Vertigo Staying Safe Discharge Orders/Prescriptions Prescriptions: New meclizine 12.5 mg tablet 12.5 mg PO .4 TIMES DAILY PRN (Reason: dizziness) Qty: 30 RF: 0 Continued hydrochlorothiazide 25 MG tablet 12.5 mg PO DAILY RF: 0 Trandolapril [Mavik] 4 MG tablet 4 mg PO DAILY RF: 0 clopidogrel 75 MG tablet 75 mg PO DAILY Qty: 30 RF: 0 atorvastatin 40 MG tablet 40 mg PO QHS Qty: 30 RF: 0 Referrals / Follow Up: Liane Stephenson DO [Primary Care Provider] - Within 2 Weeks Disposition Disposition (needs filled in before D/C Order can be placed): Home, Self Care Charges/Coding Visit Charges OBSV E&M: 53646 Observation care discharge
== END 2021-06-01 12:25 | disposition home or self-care (01) ==
LOC: ED 13:58 → PCU 06-01 12:25
PROVIDERS: Admitting Provider Internal Medicine; Emergency Provider Emergency Medicine; PCP Family Medicine; Referring Provider Internal Medicine; Visit Provider Internal Medicine
DX: H81.4 Vertigo of central origin (principal); E78.5 Hyperlipidemia, unspecified; I10 Essential (primary) hypertension; E66.9 Obesity, unspecified; R29.701 NIHSS score 1; E86.0 Dehydration; Z79.899 Other long term (current) drug therapy; Z79.02 Long term (current) use of antithrombotics/antiplatelets; Z68.29 Body mass index [BMI] 29.0-29.9, adult
CPT/HCPCS: 36415; 70450; 70551; 71045; 80048; 80061; 83735; 84484; 85025; 85610; 85730; 92610; 93005; 94762; 96360; 96361; 96372; 97162; 97166; 97802; 99218; 99251; 99285; J7120; A4216; G0378; G0463

== ENCOUNTER → 2021-07-01 10:22 | Outpatient (CLI) | payer MEDICARE, SELFPAY ==
[2020-06-26 09:38] VITALS: BMI 27.3
[2021-07-01 10:32] VITALS: BP 148/112; PULSE 59; RESP 16; TEMP 36.3; O2SAT 99; BMI 29.9
[2021-07-01] MEDS: DENOSUMAB 60 MG/ML SC (10:36)
== END ==
PROVIDERS: PCP Family Medicine; Referring Provider Family Medicine; Visit Provider Family Medicine
DX: M81.0 Age-related osteoporosis without current pathological fracture (principal)
CPT/HCPCS: 96372; J0897

== ENCOUNTER → 2021-07-23 10:37 | Outpatient (CLI) | payer MEDICARE, SELFPAY ==
--- NOTE | 2021-07-23 10:41 | RAD_ITS ---
STUDY: XR Hip Unilateral with Pelvis when performed; 2-3 Views 07/23/2021 10:48 AM REASON FOR EXAM: Female, 80 years old. PAIN TECHNIQUE: XR Hip Unilateral with Pelvis when performed; 2-3 Views COMPARISON: None. FINDINGS: There is a non-specific bowel gas pattern. There are atherosclerotic vascular calcifications of the pelvic arteries. There are degenerative changes of the lumbar spine. Spinal fixation hardware noted. Normal bilateral iliac wings, sacroiliac joints and visualized sacrum. Normal visualized bilateral superior and inferior pubic rami. Normal pubic symphysis. Normal ischial tuberosities. Normal visualized right femoral head. There is cortical sclerosis with sub-cortical cyst formation of the right acetabulum. Normal right hip joint. Normal visualized left femoral head. There is cortical sclerosis with sub-cortical cyst formation of the left acetabulum. Normal left hip joint. RAD/HIP, UNI W/ Pelvis 2-3 Views IMPRESSION: Degenerative findings of the hips. Electronically Signed: Russell Valerio MD at 10:33 EDT , Service support ,
== END ==
PROVIDERS: PCP Family Medicine; Referring Provider Family Medicine; Visit Provider Family Medicine
DX: M25.552 Pain in left hip (principal)
CPT/HCPCS: 73502

== ENCOUNTER 2021-12-25 10:20 | Outpatient (CLI) | payer MEDICARE, SELFPAY ==
[2021-12-25 10:48] VITALS: BP 131/90; PULSE 78; RESP 16; TEMP 36.4; O2SAT 97; BMI 29.2
[2021-12-25] MEDS: DENOSUMAB 60 MG/ML SC (10:49)
== END 2021-12-25 23:59 | disposition home or self-care (01) ==
LOC: MEDOUTP 10:20
PROVIDERS: PCP Family Medicine; Referring Provider Family Medicine; Visit Provider Family Medicine
DX: M81.0 Age-related osteoporosis without current pathological fracture (principal)
CPT/HCPCS: 96372; J0897

== ENCOUNTER → 2022-04-16 | Outpatient (CLI) | payer MEDICARE, SELFPAY ==
[2022-04-16 15:06] LABS: Absolute Neutrophil Count 5.7 X10^3/uL (2.0-7.7); Basophil# 0.07 X10^3/uL; Basophil% 0.7 % (0-1); Eosinophil# 0.11 X10^3/uL; Eosinophils% 1.1 % (0-5); Hematocrit 40.6 % (37-47); Hemoglobin 13.3 g/dL (12.0-15.0); Lymphocyte % 30.1 % (19-41); Mean Corp Hgb Conc 32.8 g/dL (32-36); Mean Corpuscular Volume 94.6 fL (81-99); Mean Platelet Vol. 9.8 fl (6.2-12.0); Monocyte# 0.78 X10^3/uL; Monocyte% 8.1 % (0-10); NRBC Flagged by Analyzer 0 % (0-5); Neutrophil # 5.74 X10^3/uL (2.7-7.7); Neutrophil % 59.6 % (47-70); Platelet Count 331 K/mm3 (150-450); RBC Distribution Width CV 12.7 % (11.6-14.6); RBC Distribution Width SD 44.2 fl (35.1-43.9); Red Blood Count 4.29 M/mm3 (4.2-5.4); White Blood Count 9.6 K/mm3 (4.4-11.0)
[2022-04-16 15:22] LABS: Iron 89 ug/dL (50-170)
== END | disposition home or self-care (01) ==
LOC: MTLAB 13:45
PROVIDERS: PCP Family Medicine; Referring Provider Family Medicine; Visit Provider Family Medicine
DX: D69.2 Other nonthrombocytopenic purpura (principal)
CPT/HCPCS: 36415; 83540; 85025

== ENCOUNTER → 2022-06-19 | Outpatient (CLI) | payer MEDICARE, SELFPAY ==
[2022-06-19 10:30] VITALS: BP 131/76; PULSE 63; RESP 16; TEMP 36; O2SAT 100
[2022-06-19] MEDS: DENOSUMAB 60 MG/ML SC (10:39)
== END | disposition home or self-care (01) ==
LOC: MEDOUTP 10:23
PROVIDERS: PCP Family Medicine; Referring Provider Family Medicine; Visit Provider Family Medicine
DX: M81.0 Age-related osteoporosis without current pathological fracture (principal)
CPT/HCPCS: 96372; J0897

== ENCOUNTER 2022-10-07 14:41 | Inpatient (IN) | payer MEDICARE, SELFPAY ==
[2022-10-07 14:42] VITALS: BP 155/94; PULSE 70; RESP 18; TEMP 36.6; O2SAT 100; BMI 29.5
--- NOTE | 2022-10-07 16:01 | EX.ED.DYSGE1 ---
HPI History of Present Illness Chief Complaint: Nausea/Vomiting Narrative Narrative: Patient presents with nausea and vomiting for a few days. It is getting worse. She was recently treated for an upper respiratory infection and she has taken codeine with an antitussive agent. She stopped taking it since she has had nausea. She has no diarrhea. She is denying abdominal pain. She has no back pain or tearing sensation. No fever chills or myalgias. [facility] Medical History HLD (hyperlipidemia) HTN (hypertension) Macular degeneration Obesity Home Medications Trandolapril [Mavik] 4 mg PO DAILY blood pressure 12/17/15 [History Last Taken 10/06/22] hydrochlorothiazide 25 mg tablet 12.5 mg PO DAILY diuretic 12/17/15 [History Last Taken 10/06/22] atorvastatin 40 mg tablet 40 mg PO QHS CHOLESTEROL 10/07/22 [History Last Taken 10/06/22] clopidogrel 75 mg tablet 75 mg PO DAILY BLOOD THINNER 10/07/22 [History Last Taken 10/06/22] Allergy/AdvReac Type Severity Reaction Status Date / Time aspirin Allergy Unknown Verified 10/07/22 14:42 Family History Father Myocardial infarction Brother Myocardial infarction CVA (cerebral vascular accident) Surgical History Hx of cholecystectomy Social History Smoking Status: Never smoker ROS ROS ED ROS Narrative Past medical history: Reviewed, includes hypertension, hypercholesterolemia macular degeneration Medications: Reviewed includes Plavix for possible retinal artery narrowing Social history: Noncontributory Review of systems: All systems negative except as indicated General: No fever, some recent generalized weakness Eyes: No visual changes ENT: No upper airway congestion, normal voice Neck: No neck pain Cardiovascular: No chest pain, no palpitations. Slightly lightheaded Respiratory: No shortness of breath or cough Gastrointestinal: No abdominal pain, no diarrhea. She has nausea and vomiting. Genitourinary: No dysuria Musculoskeletal: Denies myalgias no difficulty with ambulation Skin: No rash Neurological: No memory loss, confusion or any focal weakness Psych: No recent behavioral changes Hematologic: No easy bleeding or easy bruising EXAM Physical Exam Narrative Exam Narrative: Physical exam General: Patient appears somewhat uncomfortable Head: Normocephalic, Atraumatic Eyes: Conjunctiva not pale ENT: Dry mucous membranes Neck: Supple, Nontender, No lymphadenopathy Cardiovascular: Regular rate, Regular rhythm Respiratory: No distress, CTA bilaterally Abdomen: Soft, Nontender, Nondistended Back: Nontender, Normal Inspection. Negative for: CVA tenderness Extremities: Nontender, No edema Skin: Normal color, No rash Neurological: Alert, Normal Strength, Normal Sensation Psychological: Normal affect Const Vital Signs: 10/07/22 14:42 10/07/22 17:33 Temperature 97.8 F 97.2 F L Temperature Source Temporal Temporal Pulse Rate 70 75 Respiratory Rate 18 18 Blood Pressure 155/94 H 128/44 H Blood Pressure Mean 114 72 Pulse Ox 100 98 Oxygen Delivery Method Room Air Room Air [facility] Lab Data Labs: Laboratory Results - last 24 hr 10/07/22 10/07/22 16:18 16:18 WBC 10.3 RBC 4.69 Hgb 14.1 Hct 43.2 MCV 92.1 MCH 30.1 MCHC 32.6 RDW Std Deviation 45.1 H RDW Coeff of [place] 13.4 Plt Count 351 MPV 9.5 Immature Gran % (Auto) 0.500 Neut % (Auto) 72.0 H Lymph % (Auto) 17.0 L [place] % (Auto) 7.6 Eos % (Auto) 2.6 Baso % (Auto) 0.3 Absolute Neuts (auto) 7.4 Absolute Lymphs (auto) 1.76 Nucleated RBC % 0 Sodium 140 Potassium 3.7 Chloride 103 Carbon Dioxide 31.0 Anion Gap 6 BUN 18 Creatinine 0.91 Estim Creat Clear Calc 48.95 Est GFR (MDRD) Af Amer 77 Est GFR (MDRD) Non-Af 63 BUN/Creatinine Ratio 19.8 Glucose 120 H Calcium 9.3 Total Bilirubin 1.10 H AST 1019 H ALT 1430 H Alkaline Phosphatase 155 H Troponin I High Sens 6 Total Protein 7.2 Albumin 3.3 Globulin 3.9 Albumin/Globulin Ratio 0.8 L Lipase 580 H Radiography Diagnostic Testing: Clinical Impression(s) from Imaging Studies Chest X-Ray 10/07/22 16:50 IMPRESSION: No radiographic evidence of acute cardiopulmonary disease. Electronically Signed: Mat Chu MD at 17:32 EST , Chest x-ray read by me and radiologist is negative Treatment and Re-Evaluation Narrative: Patient is found to have mild pancreatitis, also transaminitis probably acute hepatitis, I do not know the cause, she was on an antibiotic which were trending figure out, she is also on Mavik which when I looked it up it could cause hepatotoxicity. I will admit her. She symptomatically improved Discharge Plan Triage Chief Complaint: Nausea/Vomiting ED Provider: Fabrizio Maier Dx/Rx/DC Orders Clinical Impression: Acute pancreatitis, Transaminitis, Hepatitis, Nausea & vomiting Prescriptions: No Action hydrochlorothiazide 25 MG tablet 12.5 mg PO DAILY Label Comments: blood pressure Trandolapril [Mavik] 4 MG tablet 4 mg PO DAILY Label Comments: blood pressure/heart atorvastatin 40 MG tablet 40 mg PO QHS clopidogrel 75 MG tablet 75 mg PO DAILY Primary Care Provider: Liane Stephenson Referrals: Liane Stephenson DO [Primary Care Provider] - Disposition Disposition: Acute Care Hospital [facility]
[2022-10-07] MEDS: 0.9% Normal Saline 1,000 ML 1000 ML IV (16:34)
[2022-10-07] MEDS: Ondansetron 4 MG/2 ML Vial IV (16:34)
[2022-10-07 16:42] LABS: Absolute Lymphocyte Count 1.76 X10^3/uL (0.83-4.51); Absolute Neutrophil Count 7.4 X10^3/uL (2.0-7.7); Basophil# 0.03 X10^3/uL; Basophil% 0.3 % (0-1); Eosinophil# 0.27 X10^3/uL; Eosinophils% 2.6 % (0-5); Hematocrit 43.2 % (37-47); Hemoglobin 14.1 g/dL (12.0-15.0); Lymphocyte # 1.76 X10^3/ul (0.83-4.51); Mean Corp Hgb Conc 32.6 g/dL (32-36); Mean Corpuscular Hgb 30.1 pg (27.0-32.0); Mean Corpuscular Volume 92.1 fL (81-99); Mean Platelet Vol. 9.5 fl (6.2-12.0); Monocyte# 0.78 X10^3/uL; Monocyte% 7.6 % (0-10); NRBC Flagged by Analyzer 0 % (0-5); Neutrophil # 7.44 X10^3/uL (2.7-7.7); Platelet Count 351 K/mm3 (150-450); RBC Distribution Width CV 13.4 % (11.6-14.6); RBC Distribution Width SD 45.1 fl (35.1-43.9); Red Blood Count 4.69 M/mm3 (4.2-5.4); White Blood Count 10.3 K/mm3 (4.4-11.0)
--- NOTE | 2022-10-07 16:50 | RAD_ITS ---
INDICATION: nausea EXAMINATION/TECHNIQUE: X-RAY - portable upright AP chest x-ray COMPARISON: 05/31/2021 FINDINGS: LINES/DEVICES: None. LUNGS: No consolidation, edema or effusion. No pneumothorax. MEDIASTINUM AND CARDIOVASCULAR STRUCTURES: Cardiac silhouette not enlarged. Central airways and mediastinal contour are unremarkable. BONES AND SOFT TISSUES: Unremarkable. RAD/Chest 1 View (Portable) IMPRESSION: No radiographic evidence of acute cardiopulmonary disease. Electronically Signed: Mat Chu MD at 17:32 EST ,
[2022-10-07 17:04] LABS: ALB/GLOB Ratio 0.8 RATIO (0.9-2.4); AST(SGOT) 1019 U/L (15-37); Alanine Aminotransfer ALT/SGPT 1430 U/L (13-56); Albumin, Serum 3.3 g/dL (3.2-5.0); Alkaline Phosphatase 155 U/L (45-117); Anion Gap 6 (5-15); BUN 18 mg/dL (7-18); BUN/Creat Ratio 19.8 RATIO (10-20); Calcium,Total 9.3 mg/dL (8.5-10.1); Chloride 103 mmol/L (98-107); Creatinine, Serum 0.91 mg/dL (0.55-1.02); EST Glomerular Filtration Rate 63 mL/min (>60); Est Glom Filt Rate - Afr Amer 77 mL/min (>60); Estimated Creatinine Clearance 48.95 ml/min; Globulin 3.9 g/dL (2.2-4.2); Glucose 120 mg/dL (74-106); Lipase 580 U/L (73-393); Potassium 3.7 mmol/L (3.5-5.1); Protein, Total 7.2 g/dL (6.4-8.2); Sodium Level 140 mmol/L (136-145); Troponin-I HS 6 pg/mL (3.0-54.0)
[2022-10-07 17:33] VITALS: BP 128/44; PULSE 75; RESP 18; TEMP 36.2; O2SAT 98
--- NOTE | 2022-10-07 17:37 | HP.PCM.HOS_ITS ---
HPI - General General Date of Admission: 10/07/22 Date of Service: 10/07/22 Chief Complaint: Nausea, emesis. HPI Narrative The patient is an 82 y/o F w/ PMHx: HTN, HLD, Obesity, Hx retinal artery narrowing, Macular degeneration who presents to the [facility] ED on 10/07/22 with history of ongoing intractable nausea and emesis over the last several days with recent URI treatment with an antitussive that did include codeine however this did make her nauseous so she discontinued this does had ongoing GI symptoms although denies any associated diarrhea or abdominal pain but given not improving prompted ED evaluation. She was administered also steroids and z-pack for her symtoms. She started having URI type symptoms 2 days before thanksgiving with congestion, rhinorrhea, sore throat, mild headache and cough. She notes still having a cough, occasionally productive. Patient does oddly report that her dog was recently diagnosed with hepatitis and she and her do sleep with the dog and interact closely with the dog. Work-up in the ED included T97.8, heart rate 70, BP 155/94, respiratory rate 18, 100% room air, CBC with WBC 10.3, Hgb 14.1, Plts 351 without marked shift, CMP with glucose 120, T bili 1.10, AST/ALT 1019/1430, alk phos 155, troponin 6, lipase 580, CXR with no acute cardiopulmonary findings. In the ED patient administered zofran and 1 L NS bolus. [facility] Medical History HLD (hyperlipidemia) HTN (hypertension) Macular degeneration Obesity Home Medications Trandolapril [Mavik] 4 mg PO DAILY blood pressure 12/17/15 [History Last Taken 10/06/22] hydrochlorothiazide 25 mg tablet 12.5 mg PO DAILY diuretic 12/17/15 [History Last Taken 10/06/22] atorvastatin 40 mg tablet 40 mg PO QHS CHOLESTEROL 10/07/22 [History Last Taken 10/06/22] clopidogrel 75 mg tablet 75 mg PO DAILY BLOOD THINNER 10/07/22 [History Last Taken 10/06/22] Allergy/AdvReac Type Severity Reaction Status Date / Time aspirin Allergy Unknown Verified 10/07/22 14:42 Family History (Updated 10/07/22 @ 18:[address] Ignacia Parsons MD) Father Myocardial infarction Brother Myocardial infarction CVA (cerebral vascular accident) Mother Heart disease Surgical History (Updated 10/07/22 @ 18:12 by Leah Marmolejo) H/O: hysterectomy History of knee replacement procedure of left knee History of spinal fusion Hx of cholecystectomy Social History (Updated 10/07/22 @ 18:[address] Ignacia Parsons MD) household members: spouse Smoking Status: Never smoker alcohol intake: never substance use type: does not use ROS ROS Narrative Admission Review of Systems: CONSTITUTIONAL: No weight loss, fever, chills, + weakness or fatigue. HEENT: + Macular degeneration. Eyes: No double vision or yellow sclerae. Ears, Nose, Throat: No hearing loss, sneezing, congestion, runny nose or sore throat. SKIN: No rash or itching, lesions, wounds. CARDIOVASCULAR: No chest pain, chest pressure or chest discomfort, palpitations, edema, orthopnea, syncopal events. RESPIRATORY: No shortness of breath, cough or sputum, wheezing, hemoptysis. GASTROINTESTINAL: + anorexia, nausea, vomiting, No diarrhea, abdominal pain, melena, BRBPR. GENITOURINARY: No dysuria, frequency, urgency or retention. NEUROLOGICAL: No headache, dizziness, syncope, paralysis, ataxia, numbness or tingling in the extremities, focal weakness, change in bowel or bladder control, seizure. MUSCULOSKELETAL: + muscle, back pain, joint pain or stiffness. HEMATOLOGIC: No anemia, bleeding or bruising. LYMPHATICS: No enlarged nodes. No history of splenectomy. PSYCHIATRIC: No history of depression or anxiety. ENDOCRINOLOGIC: No reports of sweating, cold or heat intolerance. No polyuria or polydipsia. ALLERGIES: No history of asthma, hives, eczema or rhinitis. Vital Signs Vital Signs Vital Signs: 10/07/22 14:42 Temperature 97.8 F Temperature Source Temporal Pulse Rate 70 Respiratory Rate 18 Blood Pressure 155/94 H Blood Pressure Mean 114 Pulse Ox 100 Oxygen Delivery Method Room Air Weight Weight: 141 lb Body Mass Index (BMI) 29.5 Physical Exam Narrative Physical Examination: General: Awake, alert, oriented x 3 and cooperative, seated upright in the ED bed, fatigued appearing. Skin: Normal color, normal turgor, no icterus, no cyanosis. HEENT: AT/NC, EOMI, PERRLA, dry MM, no carotid bruits or JVD noted. Lungs: Diminished, > bases, appropriate effort, no rales, ronchi or wheezing. Heart: Regular rate and rhythm; no gallop, rub audible. Abdomen: Soft, NTTP including epigastric region upon evaluation, ND, hyperactive BS, no obvious HSM. Extremities: No cyanosis, clubbing, or edema. Neurological: Patient awake, alert, oriented as noted, cognitive function intact; pupils equally reactive to light and accommodation, cranial nerves II- XII grossly normal, moving all 4 extremities, no focal deficits, strength moderately globally decreased. Psychiatric: Affect appears fatiged, no acute evidence of depressive or anxiety feelings. Results Lab / Micro Data Result Diagrams: 10/07/22 16:18 10/07/22 16:18 Labs: Laboratory Results - last 24 hr 10/07/22 16:18: WBC 10.3, RBC 4.69, Hgb 14.1, Hct 43.2, MCV 92.1, MCH 30.1, MCHC 32.6, RDW Std Deviation 45.1 H, RDW Coeff of Ansley 13.4, Plt Count 351, MPV 9.5, Immature Gran % (Auto) 0.500, Neut % (Auto) 72.0 H, Lymph % (Auto) 17.0 L, Evans % (Auto) 7.6, Eos % (Auto) 2.6, Baso % (Auto) 0.3, Absolute Neuts (auto) 7.4, Absolute Lymphs (auto) 1.76, Nucleated RBC % 0 10/07/22 16:18: Sodium 140, Potassium 3.7, Chloride 103, Carbon Dioxide 31.0, Anion Gap 6, BUN 18, Creatinine 0.91, Estim Creat Clear Calc 48.95, Est GFR (MDRD) Af Amer 77, Est GFR (MDRD) Non-Af 63, BUN/Creatinine Ratio 19.8, Glucose 120 H, Calcium 9.3, Total Bilirubin 1.10 H, AST 1019 H, ALT 1430 H, Alkaline Phosphatase 155 H, Troponin I High Sens 6, Total Protein 7.2, Albumin 3.3, Alicia bulin 3.9, Albumin/Globulin Ratio 0.8 L, Lipase 580 H Radiology Impression Chest X-Ray 10/07/22 16:50 IMPRESSION: No radiographic evidence of acute cardiopulmonary disease. Electronically Signed: Mat Chu MD at 17:32 EST Reading Location ID and State: [facility] / [place] Tel , Service support , Assessment & Plan Assessment/Plan (1) Transaminitis: PLAN: Plan The patient is an 82 y/o F w/ PMHx: HTN, HLD, Obesity, Hx retinal artery narrowing, Macular degeneration who presents to the [facility] ED on 10/07/22 with hi story of ongoing intractable nausea and emesis over the last several days with recent URI treatment with an antitussive that did include codeine however this did make her nauseous so she discontinued this does had ongoing GI symptoms although denies any associated diarrhea or abdominal pain but given not improving prompted ED evaluation. #1. Acutely elevated lipase (Mild pancreatitis) w/ N/V with notably elevated LFTs/bilirubin, unclear etiology, Acute Hepatitis/Transaminitis, Unclear Etiology: Will admit to MS, maintain on IVFs, NPO, PPI, IV/po pain control, trend lipase, CMP. Will obtain RUQ US to further assess although s/p prior cholecystectomy. Coags requested. Will hold Mavik as rare side effect can be hepatotoxicity. Will request GI evaluation. #2. Recent URI, ongoing cough: Will obtain full respiratory viral panel, obtain sputum Cx as certainly some illnesses can be associated with #1. CXR without acute findings. #3. History of retinal artery narrowing: We will continue patient home statin, temporarily hold plavix pending coags secondary to hepatotoxicity as noted #1, c ontinue hypertensive regimen. #4. Hypertension: Given presentation plan to continue judicious IV fluids, will temporarily hold mavik as rare side effect is hepatotoxicity, PRN hydralazine. #5. Hyperlipidemia: Hold statin therapy. #6. Obesity: Weight loss and lifestyle changes encouraged. #7. DVT Prophylaxis: SCDs, lovenox however coags pending given hepatotoxicity thus hold if abnormal. #8. CODE status: Patient HCPOA is her /daughter and living will is currently in place. Discussed CODE status at length including difference between FULL code, DNR-CCA and DNR-CC status. Following discussions about the differences in these status, requested Full Code status. Advanced Care Planning Face to Face Time: 16 minutes. Charges/Coding Visit Charges Inpatient E&M: 14981 Init Hosp L3 Procedures Hospitalists Procedures: 15830 Advncd Care Plan 30 Min
[2022-10-07 17:51] VITALS: BP 128/44; PULSE 75; RESP 18; TEMP 36.2; O2SAT 98
--- NOTE | 2022-10-07 17:58 | NURSING ---
MED SURG WHITE HEPATITIS
[2022-10-07 18:11] LABS: Prothrombin Time (Protime)PT. 12.6 SECONDS (11.7-14.9)
[2022-10-07 18:19] LABS: Partial Thromboplast Time 24.3 Seconds (24.1-36.2)
[2022-10-07 18:37] LABS: Acetaminophen (Tylenol) Level < 2.0 ug/mL (10.0-30.0)
[2022-10-07 19:14] VITALS: BMI 29.3
[2022-10-07 19:15] VITALS: BP 128/74; PULSE 69; RESP 18; TEMP 36.4; O2SAT 100
--- NOTE | 2022-10-07 19:18 | US_ITS ---
STUDY: ABDOMINAL ULTRASOUND - RIGHT UPPER QUADRANT REASON FOR VISIT: Female, 82 years old Abnormal LFTs/bili TECHNIQUE: Ultrasound evaluation of the right upper quadrant was performed with real-time and static robertson-scale imaging. TECHNICAL QUALITY: Limited. Examination limited by bowel gas. COMPARISON: None. FINDINGS: Liver: The liver measures 13.6 cm. There is normal echogenicity of the liver. The bile ducts are within normal limits. There is hepatic color flow. The direction of portal flow is hepatopetal. There is no demonstrated mass lesion. Gallbladder: The patient is status post cholecystectomy. Common Bile Duct (C.B.D.): The common bile duct measures 7 mm. Pancreas: Normal size of the head, body and tail of the pancreas. There is normal echogenicity of the pancreas. There is no demonstrated pancreatic mass or cyst. Right Kidney: Normal size of the right kidney. The right kidney measures 8.7 cm. Normal renal cortex. The right cortex measures 1.6 cm. There is no demonstrated renal mass or cyst. There is no right hydronephrosis. US/Liver IMPRESSION: Status post cholecystectomy. Electronically Signed: Eron Hills MD at 22:34 EST ,
[2022-10-07] MEDS: 0.9% Normal Saline 1,000 ML 150 ML IV (20:32)
[2022-10-07] MEDS: 0.9% Saline Lock 10 ML Syringe IV (20:32)
[2022-10-07] MEDS: Atorvastatin Calcium 40 MG Tablet PO (22:02)
[2022-10-08] VITALS (8 sets, daily range): BP systolic 115–141; BP diastolic 51–72; PULSE 61–78; RESP 16–18; TEMP 36.6–36.8; O2SAT 97–100
[2022-10-08] MEDS: 0.9% Normal Saline 1,000 ML 150 ML IV ×4 (03:27→22:11)
[2022-10-08 04:59] LABS: Absolute Lymphocyte Count 2.75 X10^3/uL (0.83-4.51); Basophil# 0.03 X10^3/uL; Basophil% 0.3 % (0-1); Eosinophil# 0.28 X10^3/uL; Eosinophils% 2.6 % (0-5); Hematocrit 39.8 % (37-47); Hemoglobin 12.8 g/dL (12.0-15.0); Lymphocyte # 2.75 X10^3/ul (0.83-4.51); Lymphocyte % 25.3 % (19-41); Mean Corp Hgb Conc 32.2 g/dL (32-36); Mean Corpuscular Hgb 30.1 pg (27.0-32.0); Mean Corpuscular Volume 93.6 fL (81-99); Mean Platelet Vol. 9.7 fl (6.2-12.0); Monocyte# 0.73 X10^3/uL; Monocyte% 6.7 % (0-10); NRBC Flagged by Analyzer 0.2 % (0-5); Neutrophil # 7.02 X10^3/uL (2.7-7.7); Neutrophil % 64.6 % (47-70); Platelet Count 319 K/mm3 (150-450); RBC Distribution Width CV 13.4 % (11.6-14.6); RBC Distribution Width SD 45.7 fl (35.1-43.9); Red Blood Count 4.25 M/mm3 (4.2-5.4); White Blood Count 10.9 K/mm3 (4.4-11.0)
[2022-10-08 05:33] LABS: ALB/GLOB Ratio 0.8 RATIO (0.9-2.4); AST(SGOT) 492 U/L (15-37); Alanine Aminotransfer ALT/SGPT 907 U/L (13-56); Albumin, Serum 2.6 g/dL (3.2-5.0); Alkaline Phosphatase 120 U/L (45-117); Anion Gap 7 (5-15); BUN 16 mg/dL (7-18); BUN/Creat Ratio 19.5 RATIO (10-20); Calcium,Total 7.8 mg/dL (8.5-10.1); Chloride 109 mmol/L (98-107); Cholesterol 135 mg/dL (200); Creatinine, Serum 0.82 mg/dL (0.55-1.02); EST Glomerular Filtration Rate 71 mL/min (>60); Est Glom Filt Rate - Afr Amer 86 mL/min (>60); Estimated Creatinine Clearance 54.09 ml/min; Globulin 3.3 g/dL (2.2-4.2); Glucose 83 mg/dL (74-106); High Density Lipoprotein 52 mg/dL; Lipase 190 U/L (73-393); Potassium 3.7 mmol/L (3.5-5.1); Protein, Total 5.9 g/dL (6.4-8.2); Sodium Level 142 mmol/L (136-145); Triglycerides 131 mg/dL; Very Low Density Lipoprotein 26 mg/dL (5-40)
--- NOTE | 2022-10-08 09:12 | CT_ITS ---
STUDY: CT ABDOMEN AND PELVIS WITH CONTRAST REASON FOR EXAM: Female, 82 years old. Pancreatitis and jaundice RADIATION DOSAGE (If Supplied By Facility): CTDIvol = ( 15.32 ) mGy, DLP = ( 689.51 ) mGycm TECHNIQUE: Transaxial images were obtained from the dome of the diaphragm to the symphysis pubis without oral contrast. IV 100mL Isovue-370 was administered. Sagittal and coronal images were reconstructed. Individualized dose optimization techniques were used for this CT. COMPARISON: Comparison is made with prior sonogram of the right upper quadrant dated 10/07/2022. FINDINGS: Tiny calcified granuloma in the anterior lateral aspect of the right middle lobe. Minimal left basilar atelectasis. Coronary artery calcification. There is decreased attenuation of the liver consistent with steatosis. There are surgical clips in the gallbladder fossa consistent with a prior cholecystectomy. Minimally dilated central intrahepatic biliary ducts. The common bile duct is mildly dilated measuring 7 mm in transverse dimension. Normal spleen. Normal pancreas. Normal bilateral adrenal glands. Normal right kidney. Normal left kidney. There is a small hiatal hernia. Normal small intestine. There are scattered colonic diverticula consistent with diverticulosis. Moderate degree of fecal material is seen in the rectosigmoid colon. The appendix is visualized and appears normal. There is scattered atherosclerotic calcification of the abdominal aorta, without a demonstrated aneurysm. Normal inferior vena cava. Normal retroperitoneum. Normal urinary bladder. There is absence of the uterus consistent with a prior hysterectomy. Normal abdominal wall. There are diffuse degenerative changes of the visualized lumbar spine. Prior intrapedicular screw and wire fixation at the L4-L5 level. There is irregular appearance of the inferior endplate of the L3 vertebrae and superior endplate of the L4 vertebrae. There is evidence of atherosclerosis. Possible discitis and inflammatory changes should be ruled out. CT/Abdomen/Pelvis W IV Cont ONLY IMPRESSION: Fatty infiltration of the liver. Status post cholecystectomy. The common bile duct measures 7 mm in transverse dimension. Minimally dilated intrahepatic biliary ducts. Electronically Signed: Dereck Cortes MD at 11:03 EST ,
--- NOTE | 2022-10-08 09:25 | NURSING ---
to ct scan
[2022-10-08] MEDS: Enoxaparin 40 MG/0.4 ML Syringe SC (10:09)
[2022-10-08] MEDS: Clopidogrel Bisulfate 75 MG Tablet PO (10:09)
--- NOTE | 2022-10-08 11:10 | CASEMGMT ---
SONIA LEON Face to Face with patient for initial transition planning/care coordination assessment. RN CM introduced self and role at [facility]. Patient lying in bed, alert and oriented, and daughter at bedside. Patient willing to participate in assessment and is able to answer all questions appropriately. Care providers, pharmacy, and demographics verified. Patient wishes to discharge home, denies need for home health at this time. Patient states she has no further needs or concerns at this time. CM to follow for discharge planning needs that may arise. PCP: Seema Specialists: Gabrielle Cruz Pharmacy: [facility] Insurance: [facility] Prescription Benefit: yes Living Will/HPOA: yes, Fabrizio Mata LNOK: , daughter Living Arrangements: Patient lives with in a 2 story home with bed and bath on first floor. 3 steps and railing to enter the home. Patient states she is independent at home. Transportation: DME/HHC: Patient states she has shower chair, raised toilet, cane, crutches, walker, and grab bars at home. No previous HHC or SNF Disposition Plan: Patient to discharge home with family support and follow-up plans in place. Shirley ORELLANA, RN, CM
--- NOTE | 2022-10-08 12:55 | NURSING ---
1000 protonix given late d/t miscommunication between student instructor and this nurse
--- NOTE | 2022-10-08 14:51 | CHAPLAIN ---
Type of Pastoral Visit _x__ Initial Visit ___ Follow-up Visit ___ On-call Visit ___ General Patient Visit ___ Spiritual Assessment ___ Family Conference ___ Bereavement ___ Rapid Response ___ Code Blue ___ Other (describe below) Pastoral Care Referral From _x__ Patient ___ Family ___ Nurse ___ Physician ___ Rail Express Clerk ___ Surfboard Maker ___ Other (describe below) Sacrament/Intervention _x__ Active listening ___ Anointing ___ Shinto ___ Bereavement ___ Communion ___ Carlyn exploration ___ ___ Life review _x__ Prayer ___ Reconciliation ___ Sacrament of Sick _x__ Supportive presence ___ Wedding ___ Other (describe below) Pastoral Comments patient reports on what brought her to hospital and that she has really improved; pt reports great care from staff; pt is talkative and welcomes a prayer for support
--- NOTE | 2022-10-08 16:16 | PCM.PN.HOSP ---
Subjective Subjective Was seen and examined today, she requested something to eat, her abdominal pain is much improved. Patient's liver enzymes had improved today and her lipase was normal. Objective Data Objective Data Vital Signs: Vital Signs Temp Pulse Resp BP Pulse Ox O2 Del Method 98.1 F 65 18 115/54 L 99 Room Air 10/08/22 14:07 10/08/22 14:07 10/08/22 14:07 10/08/22 14:07 10/08/22 14:07 10/08/22 14:07 Oxygen Delivery Method Room Air Weight: 63.56 kg Body Mass Index (BMI) 29.3 Intake & Output: Intake and Output for Last 24 Hours 10/06/22 10/07/22 10/08/22 23:59 23:59 23:59 Intake Total 1110 / 1110 2910 / 2910 Balance 1110 / 1110 2910 / 2910 Lab / Micro Data Result Diagrams: 10/08/22 04:25 10/08/22 04:25 Labs: Laboratory Results - last 24 hr 10/07/22 16:18: WBC 10.3, RBC 4.69, Hgb 14.1, Hct 43.2, MCV 92.1, MCH 30.1, MCHC 32.6, RDW Std Deviation 45.1 H, RDW Coeff of Ansley 13.4, Plt Count 351, MPV 9.5, Immature Gran % (Auto) 0.500, Neut % (Auto) 72.0 H, Lymph % (Auto) 17.0 L, Humphreys % (Auto) 7.6, Eos % (Auto) 2.6, Baso % (Auto) 0.3, Absolute Neuts (auto) 7.4, Absolute Lymphs (auto) 1.76, Nucleated RBC % 0 10/07/22 16:18: Sodium 140, Potassium 3.7, Chloride 103, Carbon Dioxide 31.0, Anion Gap 6, BUN 18, Creatinine 0.91, Estim Creat Clear Calc 48.95, Est GFR (MDRD) Af Amer 77, Est GFR (MDRD) Non-Af 63, BUN/Creatinine Ratio 19.8, Glucose 120 H, Calcium 9.3, Total Bilirubin 1.10 H, AST 1019 H, ALT 1430 H, Alkaline Phosphatase 155 H, Troponin I High Sens 6, Total Protein 7.2, Albumin 3.3, Globulin 3.9, Albumin/Globulin Ratio 0.8 L, Lipase 580 H 10/07/22 17:45: Acetaminophen < 2.0 L 10/07/22 17:45: PT 12.6, INR 1.0, APTT 24.3 10/07/22 19:36: COVID-19 (ARLEN) Not Detected 10/08/22 04:25: WBC 10.9, RBC 4.25, Hgb 12.8, Hct 39.8, MCV 93.6, MCH 30.1, MCHC 32.2, RDW Std Deviation 45.7 H, RDW Coeff of Ansley 13.4, Plt Count 319, MPV 9.7, Immature Gran % (Auto) 0.500, Neut % (Auto) 64.6, Lymph % (Auto) 25.3, Humphreys % (Auto) 6.7, Eos % (Auto) 2.6, Baso % (Auto) 0.3, Absolute Neuts (auto) 7.0, Absolute Lymphs (auto) 2.75, Nucleated RBC % 0.2 10/08/22 04:25: Sodium 142, Potassium 3.7, Chloride 109 H, Carbon Dioxide 26.0, Anion Gap 7, BUN 16, Creatinine 0.82, Estim Creat Clear Calc 54.09, Est GFR (MDRD) Af Amer 86, Est GFR (MDRD) Non-Af 71, BUN/Creatinine Ratio 19.5, Glucose 83, Calcium 7.8 L, Total Bilirubin 0.80, AST 492 H, ALT 907 H, Alkaline Phosphatase 120 H, Total Protein 5.9 L, Albumin 2.6 L, Globulin 3.3, Albumin/Globulin Ratio 0.8 L, Triglycerides 131, Cholesterol 135, LDL Cholesterol 57, VLDL Cholesterol 26, HDL Cholesterol 52, Lipase 190 Micro: Microbiology 10/07/22 19:36 Mucosa - Nasopharyngeal Respiratory Panel (PCR) - Final Radiography Diagnostic Testing: Radiology Impression Chest X-Ray 10/07/22 16:50 IMPRESSION: No radiographic evidence of acute cardiopulmonary disease. Electronically Signed: Mat Chu MD at 17:32 EST , Liver Ultrasound 10/07/22 19:18 IMPRESSION: Status post cholecystectomy. Electronically Signed: Eron Hills MD at 22:34 EST , Abdomen/Pelvis CT 10/08/22 09:12 IMPRESSION: Fatty infiltration of the liver. Status post cholecystectomy. The common bile duct measures 7 mm in transverse dimension. Minimally dilated intrahepatic biliary ducts. Electronically Signed: Dereck Cortes MD at 11:03 EST , Physical Exam Const alert, oriented x3, no apparent distress, average body habitus and healthy appearing General Appearance: cooperative, well kempt and well developed Orientation / Consciousness: awake, oriented to person, oriented to place and oriented to time HEENT normocephalic, head/scalp atraumatic and moist oral mucous membranes Eyes PERRL, EOMs intact bilaterally and conjunctivae normal Neck supple, no JVD, thyroid normal and no carotid bruits General: trachea midline Resp normal respiratory effort, no retractions, no use of accessory muscles and clear to auscultation bilaterally Auscultation: Negative for rales, rhonchi or wheezes Cardio regular rate, regular rhythm, S1 normal heart sound, S2 normal heart sound, no murmurs, no rub and no gallops GI normal to inspection, nondistended, normoactive bowel sounds, soft to palpation, non-tender and non-distended Extremity no clubbing, cyanosis or edema Skin no rashes or lesions noted General Skin Exam: no breakdown Neuro oriented x3, CN's II-XII intact bilaterally, moves all extremities, no focal motor deficits and no sensory deficits noted Sensorium / Orientation: awake and alert Speech: speech normal Psych affect normal Assessment & Plan Assessment/Plan (1) Acute pancreatitis: PLAN: Plan 1. Acute pancreatitis-patient is asymptomatic at this time, I have written for diet for the patient, gastroenterology is going to see the patient, I feel that the most likely explanation is that she passed a stone from her liver. #2 hepatitis-again I feel that secondary to passage of a stone, liver enzymes will be monitored #3 hyperlipidemia-patient is on atorvastatin #4 essential hypertension-patient is on hydrochlorothiazide and Mavik Charges/Coding Visit Charges Inpatient E&M: 26044 Subs Hosp L2
--- NOTE | 2022-10-08 17:41 | PCM.CONS.GEN ---
Assessment & Plan Assessment/Plan (1) Acute pancreatitis: PLAN: Improved. I suspect that she passed the stone from her common bile duct and is the reason why her amylase and lipase have decreased to drastically. There is no sign of, ampullary lesion severe ductal dilation seen on CT scan. (2) Hepatitis: PLAN: Despite secondary to acute liver injury from choledocholithiasis has no sign of stones are seen on the report I would recommend ursodiol 250 twice a day. HPI Consult Data Date of Consult: 10/08/22 HPI Narrative Reason for Consultation: abdominal pain HPI Narrative: MELYSSA GUERRERO, is a 82 F who presented with intractable nausea and emesis over the last several days with recent URI treatment with an antitussive that did include codeine however this did make her nauseous so she discontinued this does had ongoing GI symptoms although denies any associated diarrhea or abdominal pain but given not improving prompted ED evaluation. She was administered also steroids and z-pack for her symtoms. She started having URI type symptoms 2 days before thanksgiving with congestion, rhinorrhea, sore throat, mild headache and cough. She notes still having a cough, occasionally productive. Patient does oddly report that her dog was recently diagnosed with hepatitis and she and her do sleep with the dog and interact closely with the dog. Work-up in the ED included T97.8, heart rate 70, BP 155/94, respiratory rate 18, 100% room air, CBC with WBC 10.3, Hgb 14.1, Plts 351 without marked shift, CMP with glucose 120, T bili 1.10, AST/ALT 1019/1430, alk phos 155, troponin 6, lipase 580, CXR with no acute cardiopulmonary findings. In the ED patient administered zofran and 1 L NS bolus. U/S: FINDINGS: Liver:? The liver measures 13.6 cm.? There is normal echogenicity of the liver.? The bile ducts are within normal limits.? There is hepatic color flow.? The direction of portal flow is hepatopetal.? There is no demonstrated mass lesion. Gallbladder:? The patient is status post cholecystectomy. Common Bile Duct (C.B.D.): ? The common bile duct measures 7 mm. Pancreas: ? Normal size of the head, body and tail of the pancreas.? There is normal echogenicity of the pancreas. ? There is no demonstrated pancreatic mass or cyst. Ordered a CT scan of the abdomen and pelvis: The findings are- Fatty infiltration of the liver. Status post cholecystectomy.? The common bile duct measures 7 mm in transverse dimension.? Minimally dilated intrahepatic biliary ducts. [facility] Medical History HLD (hyperlipidemia) HTN (hypertension) Macular degeneration Obesity Home Medications Trandolapril [Mavik] 4 mg PO DAILY blood pressure 12/17/15 [History Last Taken 10/06/22] hydrochlorothiazide 25 mg tablet 12.5 mg PO DAILY diuretic 12/17/15 [History Last Taken 10/06/22] atorvastatin 40 mg tablet 40 mg PO QHS CHOLESTEROL 10/07/22 [History Last Taken 10/06/22] clopidogrel 75 mg tablet 75 mg PO DAILY BLOOD THINNER 10/07/22 [History Last Taken 10/06/22] Allergy/AdvReac Type Severity Reaction Status Date / Time aspirin Allergy Unknown Verified 10/07/22 14:42 Family History (Updated 10/07/22 @ 18:[address] Ignacia Parsons MD) Father Myocardial infarction Brother Myocardial infarction CVA (cerebral vascular accident) Mother Heart disease Surgical History (Updated 10/07/22 @ 18:12 by Leah Marmolejo) H/O: hysterectomy History of knee replacement procedure of left knee History of spinal fusion Hx of cholecystectomy Social History (Updated 10/07/22 @ 18:[address] Ignacia Parsons MD) household members: spouse Smoking Status: Never smoker alcohol intake: never substance use type: does not use ROS ROS Narrative Admission Review of Systems: CONSTITUTIONAL: No weight loss, fever, chills, + weakness or fatigue. HEENT: + Macular degeneration. Eyes: No double vision or yellow sclerae. Ears, Nose, Throat: No hearing loss, sneezing, congestion, runny nose or sore throat. SKIN: No rash or itching, lesions, wounds. CARDIOVASCULAR: No chest pain, chest pressure or chest discomfort, palpitations, edema, orthopnea, syncopal events. RESPIRATORY: No shortness of breath, cough or sputum, wheezing, hemoptysis. GASTROINTESTINAL: + anorexia, nausea, vomiting, No diarrhea, abdominal pain, melena, BRBPR. GENITOURINARY: No dysuria, frequency, urgency or retention. NEUROLOGICAL: No headache, dizziness, syncope, paralysis, ataxia, numbness or tingling in the extremities, focal weakness, change in bowel or bladder control, seizure. MUSCULOSKELETAL: + muscle, back pain, joint pain or stiffness. HEMATOLOGIC: No anemia, bleeding or bruising. LYMPHATICS: No enlarged nodes. No history of splenectomy. PSYCHIATRIC: No history of depression or anxiety. ENDOCRINOLOGIC: No reports of sweating, cold or heat intolerance. No polyuria or polydipsia. ALLERGIES: No history of asthma, hives, eczema or rhinitis. Physical Exam Const alert, oriented x3, no apparent distress, average body habitus and healthy appearing General Appearance: cooperative, well kempt and well developed Orientation / Consciousness: awake, oriented to person, oriented to place and oriented to time HEENT normocephalic, head/scalp atraumatic and moist oral mucous membranes Eyes PERRL, EOMs intact bilaterally and conjunctivae normal Neck supple, no JVD, thyroid normal and no carotid bruits General: trachea midline Resp normal respiratory effort, no retractions, no use of accessory muscles and clear to auscultation bilaterally Auscultation: Negative for rales, rhonchi or wheezes Cardio regular rate, regular rhythm, S1 normal heart sound, S2 normal heart sound, no murmurs, no rub and no gallops GI normal to inspection, nondistended, normoactive bowel sounds, soft to palpation, non-tender and non-distended Extremity no clubbing, cyanosis or edema Skin no rashes or lesions noted General Skin Exam: no breakdown Neuro oriented x3, CN's II-XII intact bilaterally, moves all extremities, no focal motor deficits and no sensory deficits noted Sensorium / Orientation: awake and alert Speech: speech normal Psych affect normal Lab / Micro Data Result Diagrams: 10/08/22 04:25 10/08/22 04:25 Labs: Laboratory Results - last 24 hr 10/07/22 17:45: Acetaminophen < 2.0 L 10/07/22 17:45: PT 12.6, INR 1.0, APTT 24.3 10/07/22 19:36: COVID-19 (ARLEN) Not Detected 10/08/22 04:25: WBC 10.9, RBC 4.25, Hgb 12.8, Hct 39.8, MCV 93.6, MCH 30.1, MCHC 32.2, RDW Std Deviation 45.7 H, RDW Coeff of [place] 13.4, Plt Count 319, MPV 9.7, Immature Gran % (Auto) 0.500, Neut % (Auto) 64.6, Lymph % (Auto) 25.3, [place] % (Auto) 6.7, Eos % (Auto) 2.6, Baso % (Auto) 0.3, Absolute Neuts (auto) 7.0, Absolute Lymphs (auto) 2.75, Nucleated RBC % 0.2 10/08/22 04:25: Sodium 142, Potassium 3.7, Chloride 109 H, Carbon Dioxide 26.0, Anion Gap 7, BUN 16, Creatinine 0.82, Estim Creat Clear Calc 54.09, Est GFR (MDRD) Af Amer 86, Est GFR (MDRD) Non-Af 71, BUN/Creatinine Ratio 19.5, Glucose 83, Calcium 7.8 L, Total Bilirubin 0.80, AST 492 H, ALT 907 H, Alkaline Phosphatase 120 H, Total Protein 5.9 L, Albumin 2.6 L, Globulin 3.3, Albumin/Globulin Ratio 0.8 L, Triglycerides 131, Cholesterol 135, LDL Cholesterol 57, VLDL Cholesterol 26, HDL Cholesterol 52, Lipase 190 Micro: Microbiology 10/07/22 19:36 Mucosa - Nasopharyngeal Respiratory Panel (PCR) - Final Radiology Impression Liver Ultrasound 10/07/22 19:18 IMPRESSION: Status post cholecystectomy. Electronically Signed: Eron Hills MD at 22:34 EST , Abdomen/Pelvis CT 10/08/22 09:12 IMPRESSION: Fatty infiltration of the liver. Status post cholecystectomy. The common bile duct measures 7 mm in transverse dimension. Minimally dilated intrahepatic biliary ducts. Electronically Signed: Dereck Cortes MD at 11:03 EST , Charges/Coding Visit Charges Inpatient E&M: 96384 Init Hosp L2
[2022-10-08] MEDS: Atorvastatin Calcium 40 MG Tablet PO (20:14)
[2022-10-09 03:09] VITALS: BP 150/75; PULSE 60; RESP 16; TEMP 36.7; O2SAT 96
[2022-10-09 03:11] VITALS: BP 150/75; PULSE 60; RESP 16; TEMP 36.7; O2SAT 96
[2022-10-09 05:07] LABS: HEPATITIS B SURFACE AG Negative (Negative); Hep C Antibodies 0.1 s/co ratio (0.0-0.9); Hepatitis A IgM Antibody Negative (Negative); Hepatitis B Core AB IgM Negative (Negative)
[2022-10-09] MEDS: 0.9% Normal Saline 1,000 ML 150 ML IV (05:11)
[2022-10-09 06:38] LABS: AST(SGOT) 185 U/L (15-37); Alanine Aminotransfer ALT/SGPT 518 U/L (13-56); Albumin, Serum 2.4 g/dL (3.2-5.0); Alkaline Phosphatase 91 U/L (45-117); Bilirubin, Direct 0.16 mg/dL (0.00-0.30); Globulin 3.1 g/dL (2.2-4.2); Protein, Total 5.5 g/dL (6.4-8.2)
[2022-10-09 07:44] VITALS: O2SAT 98
[2022-10-09 08:05] VITALS: BP 155/80; PULSE 61; RESP 18; TEMP 36.6; O2SAT 100
[2022-10-09] MEDS: Enoxaparin 40 MG/0.4 ML Syringe SC (09:16)
[2022-10-09] MEDS: Clopidogrel Bisulfate 75 MG Tablet PO (09:16)
--- NOTE | 2022-10-09 09:34 | DCINST_ITS ---
Discharge Instructions Diet Discharge Diet: No restrictions Activity Discharge Activity: Return to Normal Activity Weight Bearing Status: Full weight bearing Follow Up Care Test Results: Test results from this visit will be discussed in further detail at your follow- up appointment, if applicable. Discharge Plan Admission Admit Date/Time: 10/07/22 17:39 Primary Reason for Your Visit: pancreatitis, hepatitis Attending Provider: Rafa Morrow Primary Care Provider: Liane Stephenson Consulting Providers: Ignacia Parsons Discharge Orders/Prescriptions Prescriptions: New ursodiol 250 mg tablet 250 mg PO BID Qty: 60 0RF Continued hydrochlorothiazide 25 MG tablet 12.5 mg PO DAILY Label Comments: blood pressure Trandolapril [Mavik] 4 MG tablet 4 mg PO DAILY Label Comments: blood pressure/heart atorvastatin 40 MG tablet 40 mg PO QHS clopidogrel 75 MG tablet 75 mg PO DAILY Referrals / Follow Up: Liane Stephenson DO [Primary Care Provider] - Within 2 Weeks Disposition Disposition (needs filled in before D/C Order can be placed): Home, Self Care
--- NOTE | 2022-10-09 09:39 | DS.PCM_ITS ---
Providers Date of Admission: 10/07/22 Date of Discharge: 10/09/22 Primary Care Physician: Dr. Liane Stephenson, DO Consultations 10/07/22 19:18 Consult: Gastroenterology Routine Consulting Provider: [facility] Reason for Consult: Elevated LFT/bili, hepatitis EMERGENT Consult: No MD Notified: Yes Date Notified: 10/07/22 Time Notified: 18:33 Method of Notification: Text Reason For Visit: PANCREATITIS, ELEVATED LFT/BILI Diagnosis Discharge Diagnosis (1) Acute pancreatitis: Status: Acute Code(s): K85.90 - Acute pancreatitis without necrosis or infection, unspecified Plan 1. Acute pancreatitis felt to be secondary from biliary stone passage-patient is asymptomatic at this time, I have written for diet for the patient, gastroenterology is going to see the patient, I feel that the most likely explanation is that she passed a stone from her liver. #2 hepatitis-again I feel that secondary to passage of a stone, liver enzymes will be monitored #3 hyperlipidemia-patient is on atorvastatin #4 essential hypertension-patient is on hydrochlorothiazide and Mavik #5 fatty liver Medications at Discharge Home Medications Trandolapril [Mavik] 4 mg PO DAILY blood pressure 12/17/15 hydrochlorothiazide 25 mg tablet 12.5 mg PO DAILY diuretic 12/17/15 atorvastatin 40 mg tablet 40 mg PO QHS CHOLESTEROL 10/07/22 clopidogrel 75 mg tablet 75 mg PO DAILY BLOOD THINNER 10/07/22 ursodiol 250 mg tablet 250 mg PO BID #60 tabs 10/09/22 Hospital Course Operations None Procedures None Summary of Care Provided Minutes Spent on Discharge: 31 Hospital Course: 82-year-old white female was seen in the emergency room at [facility] with a chief complaint of nausea and vomiting times several days. Work-up in the ER included labs which showed elevated liver enzymes and elevated lipase. Patient was admitted to [facility], she had a liver ultrasound ordered which did not show any abnormalities, she was noted to be postcholecystectomy. Patient had a CT of her abdomen and pelvis which showed fatty infiltration of the liver and minimally dilated intrahepatic biliary ducts. Patient was given IV fluids and IV pain medications, repeat labs showed declining liver enzymes and normalizing lipase, she was seen in consultation by gastroenterology who felt that the patient probably passed a stone. On 10/09/2022, patient was seen and examined: On examination she appeared in good health and spirits, she does not appear to be in any distress. Vital signs as documented. Skin warm and dry and without overt rashes. Neck without JVD, thyroid appears normal, trachea is midline, neck is supple. Lungs clear, normal air movement was noted. Heart exam notable for regular rhythm, normal sounds and absence of murmurs, rubs or gallops. Abdomen unremarkable and without evidence of organomegaly, masses, or abdominal aortic enlargement, bowel sounds are present in all 4 quadrants, no abdominal tenderness was noted. Extremities nonedematous, no cyanosis was noted, no clubbing was noted. Neuro: Cranial nerves II through XII are grossly intact, no focal motor deficits were noted, sensation to light touch and pinprick is intact, motor exam 5/5 throughout. Psych: Patient is alert and oriented x3, she does not appear anxious or depressed, she does not appear agitated. Patient appears stable for discharge on 10/09/2022. Weight / BMI Weight Weight: 62.9 kg Body Mass Index (BMI) 29.3 ABG / Lab / Microbiology Data Result Diagrams: 10/08/22 04:25 10/08/22 04:25 Laboratory: Laboratory Results - last 24 hr 10/09/22 05:55: Total Bilirubin 0.50, Direct Bilirubin 0.16, AST 185 H, ALT 518 H, Alkaline Phosphatase 91, Total Protein 5.5 L, Albumin 2.4 L, Globulin 3.1 Microbiology: Microbiology 10/07/22 19:36 Mucosa - Nasopharyngeal Respiratory Panel (PCR) - Final Radiography Diagnostic Testing: Radiology Impression Abdomen/Pelvis CT 10/08/22 09:12 IMPRESSION: Fatty infiltration of the liver. Status post cholecystectomy. The common bile duct measures 7 mm in transverse dimension. Minimally dilated intrahepatic biliary ducts. Electronically Signed: Dereck Cortes MD at 11:03 EST , D/C Instructions Discharge Diet: No restrictions Weight Bearing Status: Full weight bearing Meaningful Use Info Meaningful Use Diagnoses (Choose all that apply): None applicable Discharge Plan Admission Admit Date/Time: 10/07/22 17:39 Primary Reason for Your Visit: pancreatitis, hepatitis Attending Provider: Rafa Morrow Primary Care Provider: Liane Stephenson Consulting Providers: Ignacia Parsons Discharge Orders/Prescriptions Prescriptions: New ursodiol 250 mg tablet 250 mg PO BID Qty: 60 0RF Continued hydrochlorothiazide 25 MG tablet 12.5 mg PO DAILY Label Comments: blood pressure Trandolapril [Mavik] 4 MG tablet 4 mg PO DAILY Label Comments: blood pressure/heart atorvastatin 40 MG tablet 40 mg PO QHS clopidogrel 75 MG tablet 75 mg PO DAILY Referrals / Follow Up: Liane Stephenson DO [Primary Care Provider] - Within 2 Weeks Disposition Disposition (needs filled in before D/C Order can be placed): Home, Self Care Charges/Coding Visit Charges Inpatient E&M: 27048 Disch Hosp
== END 2022-10-09 11:15 | disposition home or self-care (01) | DRG 439 ==
LOC: ED 17:49 → MS3 19:44
PROVIDERS: Admitting Provider Family Medicine; Emergency Provider Emergency Medicine; PCP Family Medicine; Visit Provider Internal Medicine
DX: K85.90 Acute pancreatitis without necrosis or infection, unspecified (principal); B17.9 Acute viral hepatitis, unspecified; K76.0 Fatty (change of) liver, not elsewhere classified; E78.5 Hyperlipidemia, unspecified; I10 Essential (primary) hypertension; R74.01 Elevation of levels of liver transaminase levels; Z79.02 Long term (current) use of antithrombotics/antiplatelets; E66.9 Obesity, unspecified
CPT/HCPCS: 36415; 71045; 74177; 76705; 80053; 80061; 80074; 80076; 80329; 83690; 84484; 85025; 85610; 85730; 87633; 87635; 93005; 99284; J7030; Q9967; A4216; G0480; J2405; U0003; U0005

== ENCOUNTER → 2022-10-14 | Outpatient (CLI) | payer MEDICARE, SELFPAY ==
[2022-10-14 15:30] LABS: AST(SGOT) 32 U/L (15-37); Alanine Aminotransfer ALT/SGPT 174 U/L (13-56); Albumin, Serum 3.4 g/dL (3.2-5.0); Alkaline Phosphatase 86 U/L (45-117); Bilirubin, Direct 0.11 mg/dL (0.00-0.30); Globulin 3.9 g/dL (2.2-4.2); Protein, Total 7.3 g/dL (6.4-8.2)
== END | disposition home or self-care (01) ==
LOC: BFHLAB 12:16
PROVIDERS: PCP Family Medicine; Visit Provider Family Medicine
DX: K75.9 Inflammatory liver disease, unspecified (principal)
CPT/HCPCS: 36415; 80076

== ENCOUNTER → 2022-12-18 | Outpatient (CLI) | payer MEDICARE, SELFPAY ==
[2022-12-18 10:27] VITALS: BP 141/82; PULSE 65; RESP 16; TEMP 35.9; O2SAT 99; BMI 28.8
[2022-12-18] MEDS: DENOSUMAB 60 MG/ML SC (10:29)
== END | disposition home or self-care (01) ==
LOC: MEDOUTP 10:23
PROVIDERS: PCP Family Medicine; Referring Provider Family Medicine; Visit Provider Family Medicine
DX: M81.0 Age-related osteoporosis without current pathological fracture (principal)
CPT/HCPCS: 96372; J0897

== ENCOUNTER 2023-01-01 18:20 | Emergency (ER) | payer MEDICARE, SELFPAY ==
[2023-01-01 18:21] VITALS: BP 132/112; PULSE 73; RESP 18; TEMP 36; O2SAT 100; BMI 29.9
--- NOTE | 2023-01-01 21:44 | EDS_ITS ---
HPI History of Present Illness Chief Complaint: Upper Extremity Injury Detail of Chief Complaint: Right arm redness and swelling Informant: patient and spouse/S.O. Onset/Context/Timing Onset: Days Narrative Narrative: Patient presents with redness and swelling on her right wrist and states family was concerned for blood clot. at bedside states that she was complaining of some slight shoulder pain yesterday that seems to go down to the wrist today. He noted an area of redness after she had put and topical ointment on it. He is not sure if there is an infection or if the erythema is because of the ointment. was reviewing some information online and is concerned that she may have a blood clot. Although patient denies pain currently, states that she was complaining of pain at home. He does report that she has had some memory issues. [facility] Medical History HLD (hyperlipidemia) HTN (hypertension) Macular degeneration Obesity Home Medications Trandolapril [Mavik] 4 mg PO DAILY blood pressure 12/17/15 [History Last Taken 10/06/22] hydrochlorothiazide 25 mg tablet 12.5 mg PO DAILY diuretic 12/17/15 [History Last Taken 10/06/22] atorvastatin 40 mg tablet 40 mg PO QHS CHOLESTEROL 10/07/22 [History Last Taken 10/06/22] clopidogrel 75 mg tablet 75 mg PO DAILY BLOOD THINNER 10/07/22 [History Last Taken 10/06/22] ursodiol 250 mg tablet 250 mg PO BID #60 tabs 10/09/22 [Rx Last Taken Unknown] Allergy/AdvReac Type Severity Reaction Status Date / Time aspirin Allergy Unknown Verified 12/18/22 10:27 Family History Father Myocardial infarction Brother Myocardial infarction CVA (cerebral vascular accident) Mother Heart disease Surgical History H/O: hysterectomy History of knee replacement procedure of left knee History of spinal fusion Hx of cholecystectomy Social History household members: spouse Smoking Status: Never smoker alcohol intake: never substance use type: does not use ROS ROS ED Constitutional Constitutional ED: Denies chills or fever(s) Eyes Eyes: Denies change in vision or discharge from eye(s) ENT ENT ED: Denies discharge from eye(s), rhinorrhea or sore throat Cardiovascular Cardiovascular: Denies chest pain or palpitations Respiratory/Chest Respiratory/Chest: Denies cough or dyspnea Gastrointestinal Gastrointestinal: Denies abdominal pain, nausea or vomiting Musculoskeletal Musculoskeletal: Reports extremity pain; Denies back pain Integumentary Reports rash; Denies Abrasions Neurologic Neurologic: Denies headache(s) or weakness Psychiatric Psychiatric: Denies anxiety or depression Allergic/Immunologic Allergic/Immunologic ED: Denies lip swelling or urticaria EXAM Physical Exam Const Vital Signs: 01/01/23 18:21 Temperature 96.8 F L Temperature Source Temporal Pulse Rate 73 Respiratory Rate 18 Blood Pressure 132/112 H Blood Pressure Mean 118 Pulse Ox 100 Oxygen Delivery Method Room Air Positive well nourished and well developed General Appearance ED: well developed HEENT Reports normocephalic and head/scalp atraumatic Eyes PERRL and EOMs intact bilaterally Neck supple Chest Wall inspection of chest normal and palpation of chest normal Resp normal respiratory effort and clear to auscultation bilaterally Cardio regular rate and regular rhythm GI normal to inspection, nondistended, normoactive bowel sounds Palpation: soft Extremity Extremity Narrative: 6 x 4 cm area of erythema along the radial aspect of the right wrist. Area is not tender to palpation. She has full flexion extension of the wrist without difficulty. No tenderness at the elbow or shoulder. No wounds or skin lesions noted. Neuro oriented x3 and no sensory deficits noted Sensorium / Orientation: alert Motor Exam: strength 5/5 throughout Psych mental status grossly normal MDM MDM MDM Narrative Medical decision making narrative: CBC and D-dimer obtained to evaluate for leukocytosis and possibility of blood clot. Lab Data Labs: Laboratory Results 01/01/23 01/01/23 21:58 21:58 WBC 9.0 RBC 4.59 Hgb 13.9 Hct 42.6 MCV 92.8 MCH 30.3 MCHC 32.6 RDW Std Deviation 44.2 H RDW Coeff of [place] 12.9 Plt Count 258 MPV 9.6 Immature Gran % (Auto) 0.100 Neut % (Auto) 50.4 Lymph % (Auto) 36.5 [place] % (Auto) 9.6 Eos % (Auto) 2.7 Baso % (Auto) 0.7 Absolute Neuts (auto) 4.6 Absolute Lymphs (auto) 3.29 Nucleated RBC % 0 D-Dimer Quant (PE/DVT) 0.36 Treatment and Re-Evaluation Narrative: CBC was normal white count with no left shift. D-dimer is normal at 0.36. On repeat evaluation the erythema has lightened. I did draw a line around the area of erythema. I asked her not to use any topical ointment on this as I believe this is likely a reaction to that. The area is not excessively warm as I would expect for cellulitis. Instructions were given that if she gets worse and redness, pain, swelling, or the redness spreads outside the line she should return for potential antibiotics to treat cellulitis. They are comfortable with this plan. Discharge Plan Triage Chief Complaint: Upper Extremity Injury ED Provider: Radha Pugh Dx/Rx/DC Orders Clinical Impression: Right wrist pain Instructions: ED Arthralgia Prescriptions: No Action hydrochlorothiazide 25 MG tablet 12.5 mg PO DAILY Label Comments: blood pressure Trandolapril [Mavik] 4 MG tablet 4 mg PO DAILY Label Comments: blood pressure/heart atorvastatin 40 MG tablet 40 mg PO QHS clopidogrel 75 MG tablet 75 mg PO DAILY ursodiol 250 mg tablet 250 mg PO BID Qty: 60 0RF Primary Care Provider: Liane Stephenson Referrals: Liane Stephenson [Primary Care Provider] - As Needed Disposition Disposition: Home, Self Care
[2023-01-01 22:08] LABS: Absolute Lymphocyte Count 3.29 X10^3/uL (0.83-4.51); Absolute Neutrophil Count 4.6 X10^3/uL (2.0-7.7); Basophil# 0.06 X10^3/uL; Basophil% 0.7 % (0-1); Eosinophil# 0.24 X10^3/uL; Eosinophils% 2.7 % (0-5); Hematocrit 42.6 % (37-47); Hemoglobin 13.9 g/dL (12.0-15.0); Lymphocyte # 3.29 X10^3/ul (0.83-4.51); Lymphocyte % 36.5 % (19-41); Mean Corp Hgb Conc 32.6 g/dL (32-36); Mean Corpuscular Hgb 30.3 pg (27.0-32.0); Mean Corpuscular Volume 92.8 fL (81-99); Mean Platelet Vol. 9.6 fl (6.2-12.0); Monocyte# 0.87 X10^3/uL; Monocyte% 9.6 % (0-10); NRBC Flagged by Analyzer 0 % (0-5); Neutrophil # 4.55 X10^3/uL (2.7-7.7); Neutrophil % 50.4 % (47-70); Platelet Count 258 K/mm3 (150-450); RBC Distribution Width CV 12.9 % (11.6-14.6); RBC Distribution Width SD 44.2 fl (35.1-43.9); Red Blood Count 4.59 M/mm3 (4.2-5.4)
[2023-01-01 22:19] LABS: D-Dimer Quantitative (DVT/PE) 0.36 FEU/ug/m (0.27-0.49)
[2023-01-01 22:47] VITALS: BP 125/61; PULSE 73; RESP 15; O2SAT 98
== END 2023-01-01 22:49 | disposition home or self-care (01) ==
PROVIDERS: Emergency Provider Emergency Medicine; PCP Family Medicine; Visit Provider Emergency Medicine
DX: M25.531 Pain in right wrist (principal); M79.89 Other specified soft tissue disorders; I10 Essential (primary) hypertension; E78.5 Hyperlipidemia, unspecified; Z79.899 Other long term (current) drug therapy; L53.9 Erythematous condition, unspecified
CPT/HCPCS: 85025; 85379; 99282

== ENCOUNTER → 2023-02-08 | Outpatient (CLI) | payer MEDICARE, SELFPAY ==
[2023-02-08 16:08] LABS: Erythrocyte Sedimentation Rate 15 mm/hr (0-30)
[2023-02-08 16:34] LABS: ALB/GLOB Ratio 0.9 RATIO (0.9-2.4); AST(SGOT) 23 U/L (15-37); Alanine Aminotransfer ALT/SGPT 21 U/L (13-56); Albumin, Serum 3.6 g/dL (3.2-5.0); Alkaline Phosphatase 49 U/L (45-117); Anion Gap 6 (5-15); BUN 18 mg/dL (7-18); BUN/Creat Ratio 17.6 RATIO (10-20); CRP < 2.90 mg/L (0.0-3.0); Calcium,Total 9.5 mg/dL (8.5-10.1); Chloride 109 mmol/L (98-107); Creatinine, Serum 1.02 mg/dL (0.55-1.02); EST Glomerular Filtration Rate 55 mL/min (>60); Est Glom Filt Rate - Afr Amer 67 mL/min (>60); Globulin 4.2 g/dL (2.2-4.2); Glucose 93 mg/dL (74-106); Potassium 4.4 mmol/L (3.5-5.1); Protein, Total 7.8 g/dL (6.4-8.2); Sodium Level 141 mmol/L (136-145); Uric Acid 6.6 mg/dL (2.6-6.0)
== END | disposition home or self-care (01) ==
LOC: BFHLAB 11:39
PROVIDERS: PCP Family Medicine; Referring Provider Family Medicine; Visit Provider Family Medicine
DX: M25.531 Pain in right wrist (principal)
CPT/HCPCS: 36415; 80053; 84550; 85652; 86140

== ENCOUNTER → 2023-03-24 | Outpatient (CLI) | payer MEDICARE, SELFPAY ==
[2023-03-24 17:05] LABS: ALB/GLOB Ratio 0.9 RATIO (0.9-2.4); AST(SGOT) 24 U/L (15-37); Alanine Aminotransfer ALT/SGPT 24 U/L (13-56); Albumin, Serum 3.4 g/dL (3.2-5.0); Alkaline Phosphatase 76 U/L (45-117); Anion Gap 6 (5-15); BUN 24 mg/dL (7-18); BUN/Creat Ratio 23.3 RATIO (10-20); Calcium,Total 9.4 mg/dL (8.5-10.1); Chloride 108 mmol/L (98-107); Creatinine, Serum 1.03 mg/dL (0.55-1.02); EST Glomerular Filtration Rate 55 mL/min (>60); Est Glom Filt Rate - Afr Amer 66 mL/min (>60); Globulin 3.9 g/dL (2.2-4.2); Glucose 84 mg/dL (74-106); Protein, Total 7.3 g/dL (6.4-8.2); Sodium Level 141 mmol/L (136-145); Uric Acid 5.8 mg/dL (2.6-6.0)
== END | disposition home or self-care (01) ==
LOC: BFHLAB 11:55
PROVIDERS: PCP Family Medicine; Referring Provider Family Medicine; Visit Provider Family Medicine
DX: Z51.81 Encounter for therapeutic drug level monitoring (principal); E79.0 Hyperuricemia without signs of inflammatory arthritis and tophaceous disease
CPT/HCPCS: 36415; 80053; 84550

== ENCOUNTER → 2023-03-30 | Outpatient (CLI) | payer MEDICARE, SELFPAY ==
--- NOTE | 2023-03-30 09:52 | RAD_ITS ---
STUDY: X-RAY - CERVICAL SPINE REASON FOR EXAM: Female, 82 years old. Neck pain and headache TECHNIQUE: 5 view(s) of the cervical spine were obtained. COMPARISON: None FINDINGS: Normal anterior atlantoaxial articulation. Normal odontoid process. Normal cervical lordosis. Normal vertebral bodies and endplates. There is multi-level degenerative disc disease with multilevel disc space narrowing. Normal visualized intervertebral neuroforamina. The soft tissue structures are unremarkable. There is no demonstrated fracture of the cervical spine. RAD/Cerv Spine 4 or 5 Views IMPRESSION: Mild degenerative changes, no acute findings Electronically Signed: Massimo Duncan MD at 10:29 EDT ,
== END | disposition home or self-care (01) ==
LOC: MTRAD 09:50
PROVIDERS: PCP Family Medicine; Referring Provider Nurse Practitioner Acute Care; Visit Provider Nurse Practitioner Acute Care
DX: M54.2 Cervicalgia (principal); M48.9 Spondylopathy, unspecified
CPT/HCPCS: 72050

== ENCOUNTER → 2023-05-07 | Outpatient (CLI) | payer MEDICARE, SELFPAY | END | disposition home or self-care (01) | LOC: RAD.FUTURE 09:08 | PROVIDERS: PCP Family Medicine; Referring Provider Nurse Practitioner Acute Care; Visit Provider Nurse Practitioner Acute Care | DX: M54.12 Radiculopathy, cervical region (principal); M54.2 Cervicalgia ==

== ENCOUNTER 2023-07-02 11:41 | Outpatient (CLI) | payer MEDICARE, SELFPAY ==
[2023-07-02 12:11] VITALS: BP 142/77; PULSE 64; RESP 16; TEMP 36.2; O2SAT 100; BMI 23.6
[2023-07-02] MEDS: DENOSUMAB 60 MG/ML SC (12:17)
== END 2023-07-02 11:42 | disposition home or self-care (01) ==
LOC: MEDOUTP 11:42
PROVIDERS: PCP Family Medicine; Referring Provider Family Medicine; Visit Provider Family Medicine
DX: M81.0 Age-related osteoporosis without current pathological fracture (principal)
CPT/HCPCS: 96372; J0897

== ENCOUNTER → 2023-09-07 | Outpatient (CLI) | payer MEDICARE, SELFPAY ==
--- NOTE | 2023-09-07 09:47 | RAD_ITS ---
INDICATION: HIP PAIN AND BACK PAIN EXAMINATION/TECHNIQUE: X-RAY - XR Hip Unilateral with Pelvis when performed; 2-3 Views COMPARISON: 07/23/2021. FINDINGS: PELVIC BONES: No displaced fracture, destructive or sclerotic lesions. Note that overlapping bowel shadows may however obscure fine detail. Sacroiliac joints are unremarkable. No widening of the pubic symphysis. HIPS: Subchondral cysts in the right femoral head. No displaced fracture seen in this frontal view. SOFT TISSUES: No soft tissue swelling or gas. Prior lumbar laminectomy and fusion. RAD/HIP, UNI W/ Pelvis 2-3 Views IMPRESSION: No acute findings. Mild degenerative changes of the right femoral head. Electronically Signed: Camilla Larkin MD at 23:27 EDT Reading Location ID and State: [id number] / Tel , Service support ,
--- NOTE | 2023-09-07 09:47 | RAD_ITS ---
STUDY: X-RAY - LUMBAR SPINE REASON FOR EXAM: Female, 83 years old. HIP PAIN AND BACK PAIN TECHNIQUE: 3 view(s) of the lumbar spine were obtained. COMPARISON: 07/11/2019 FINDINGS: Stable appearance of pedicular screws of L4 and L5 with bilateral posterior rods. Impression of loss of disc height at L4-L5. Otherwise stable multilevel severe degenerative disc disease. Normal lordosis and alignment. Stable mild dextroconvex scoliosis. There is no demonstrated fracture. There is atherosclerotic calcification of the abdominal aorta without a demonstrated aneurysm. RAD/Lumbar Spine 2 or 3 Views IMPRESSION: Stable postoperative changes. Worsening of degenerative disc disease at L4-L5. Electronically Signed: Hair Burch MD at 22:11 EDT ,
== END | disposition home or self-care (01) ==
LOC: MTRAD 09:44
PROVIDERS: PCP Family Medicine; Referring Provider Family Medicine; Visit Provider Family Medicine
DX: M25.551 Pain in right hip (principal); M54.50 Low back pain, unspecified; M51.36 Other intervertebral disc degeneration, lumbar region
CPT/HCPCS: 72100; 73502

== ENCOUNTER 2023-10-11 08:30 | Outpatient (RCR) | payer MEDICARE, SELFPAY ==
--- NOTE | 2023-09-24 13:38 | HP.PTEVAL_ITS ---
Patient's Visit Information Visit Information Visit Information: MELYSSA GUERRERO is a 83 year old F referred to Physical Therapy by Dr. Liane Stephenson DO with a diagnosis of LBP with rediculopathy. 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 Pt had a ciera placed into her back approximately 10 years ago secondary to a fall she experienced. Pt notes she has had intermittent LBP until recently which has become become much more severe. Pt reports she also has R LE radiculopathy which occurs intermittently with no pattern. Pt reports she has been receiving injections into her neck and LB in the past which have always helped. Pt reports the injections used to last for 13 months, but now will only last for one month at this time. Pt reports no sleep difficulty at this time secondary to pain. Pt reports prolonged standing and ambulation causes her the most pain and LE radiculopathy. The only thing that helps is to take Tylenol and rest. Pt has had recent x-rays which revealed damage to the L4-5 level. 3/10 pain at rest, 10/10 pain at worst Pain LBP: Pain Intensity (Out of 10): 3 Pain Intensity Range: 10 Objective Objective: Neuro: B LE sensation is WNL to light touch. B patellar reflex= 1/3 ROM: Pt is moderately limited with ext and B SB. flex is WNL MMT: B LE's are grossly 4/5 throughout. Repeated movements: Prone prop in lying increases LBP and produces R LE rad iculopahty. supine SKTC/DKTC 10 sec x 3 Balance/Special Test Scores Lower Extremity Functional Score: 22 Goals Goal 1:: Decrease LBP x 50% to aid with standing tolerance Goal Time Frame: 4-6 Weeks Goal 2:: Decrease the frequency and intensity of R LE radiculopathy x 50% to aid with ambulation tolerance Goal Time Frame: 4-6 Weeks Goal 3:: Increase B LE strength x 1 grade to aid with stair negotiation Goal Time Frame: 4-6 Weeks Goal 4:: I with HEP Goal Time Frame: 4-6 Weeks Rehabilitation Potential Physical Therapy Diagnosis: Pt has LBP, limited spine ROM, and R LE radiculopathy secondary to deg changes in L/S Rehabilitation Potential: Good Anticipated Interventions Patient/Client Instruction: Educate patient on: Condition and Plan of Care For the Purpose of:: To improve self management Therapeutic Exercise to Include: Strength training, Endurance training, Balance training, Gait and locomotor training, Active ROM and Dynamic Lumbar Stabilization For the Purpose of:: To decrease pain and To improve muscle performance and motor function Cryotherapy (ice pack, ice massage): Yes For the Purpose of:: To decrease pain Text: Thank you for the opportunity to evaluate your patient. For Medicare and Medicare HMO plans, please review the plan of care and approve it. It will need to be FAXED BACK to us at [phone] for Medicare purposes. For Medicare only, by signing this I certify the plan of care. Please let me know if there are questions or concerns regarding this plan of care. Physician Signature: Date:
--- NOTE | 2024-02-17 17:34 | HP.PTDCNRP_ITS ---
Patient Information Patient Information: MELYSSA GUERRERO was seen in my office for initial evaluation on 09/24/23. The following Plan of Care was established for this patient: POC Established Initial Frequency: 2-3x /Week Initial Duration: 4-6 Weeks Anticipated Interventions Patient/Client Instruction: Educate patient on: Condition and Plan of Care For the Purpose of:: To improve self management Therapeutic Exercise to Include: Strength training, Endurance training, Balance training, Gait and locomotor training, Active ROM and Dynamic Lumbar Stabi lization For the Purpose of:: To decrease pain and To improve muscle performance and motor function Cryotherapy (ice pack, ice massage): Yes For the Purpose of:: To decrease pain Last Seen Last Seen: This patient was last seen in our office . Pertinent comments regarding their Physical therapy will appear below: Pt was treated for 4 visits for LBP through the date of 10/11/23. Pt has not returned through todays date and is discontinued at this time At this point I will be discontinuing this patient from physical therapy. I would be happy to see this patient again in the future if found appropriate by the physician. Thank you! Russell Huerta, PT, ATC Balance/Gait/Functional tests Balance/Special Test Scores Lower Extremity Functional Score: 22
== END 2023-10-11 19:00 | disposition home or self-care (01) ==
LOC: PT 08:30
PROVIDERS: PCP Family Medicine; Referring Provider Family Medicine; Visit Provider Family Medicine
DX: M79.604 Pain in right leg (principal); M25.551 Pain in right hip; M47.27 Other spondylosis with radiculopathy, lumbosacral region
CPT/HCPCS: 97110; 97161

== ENCOUNTER 2023-10-11 09:58 | Outpatient (RCR) | payer SELFPAY | END 2023-11-07 23:59 | LOC: NS 09:58 | PROVIDERS: PCP Family Medicine | DX: Z71.3 Dietary counseling and surveillance (principal) ==

== ENCOUNTER → 2023-12-08 | Outpatient (CLI) | payer MEDICARE, SELFPAY ==
--- OUTSIDE RECORDS SUMMARY | 2023-12-08 13:59 | XMS RPT_ITS | CCD ---
Author Name Unknown Address [facility] [place] [address] Organization [facility] Results Test Name Value Interpretation Reference Range Facil ity Progress note 07-01-2021 Note Date & Type Note Facility 07-01-2021 Note HNO ID: [id number] Author: Iraida Nascimento APRN.LEATHER BELT SHAPER Service: ? Author Type: Nurse Practitioner Type: Progress Notes Filed: 07/01/2021 9:00 AM Note Text: DEPARTMENT OF GASTROENTEROLOGY - FOLLOW UP VISIT HISTORY OF PRESENT ILLNESS Eugenie Mata is a 80 year old female who presents today for follow up of colonoscopy. The patient was seen by on 05/29/2021 for a colonoscopy. The procedures were performed withFentanyl 40 micrograms IV, Midazolam 4 mg IV, ? Ondansetron 4 mg IV sedation. The procedure report has been reviewed and findings as follows: Impression: ? - Diverticulosis in the sigmoid colon and in the ? descending colon. No specimens collected. ? - Non-bleeding internal hemorrhoids. No specimens ? collected. ? - Melanosis in the colon. No specimens collected. FINAL DIAGNOSIS 1. Colon, cecum, polypectomy (A) - Tubular adenoma. - Separate fragments of colonic mucosa with features of sessile serrated polyp, negative for cytologic dysplasia. 2. Colon, ascending, polypectomy (B) ?Polypoid colonic mucosa with no specific diagnostic alteration. - see comment. 3. Rectum, polypectomy (C) - Hyperplastic polyp. [place] 06/08/2016 COMMENT 2. (B). Additional histologic sections were examined. There is no evidence of dysplasia. The patient denies change in bowel habits, rectal bleeding or abdominal pain. Having a bowel movement every other day - denies straining denies blood Did have constipation after colonoscopy ended up using MO. Currently having no problems with constipation Eats a lot of fiber as well as taking fiber daily. Drinking at least 64 oz water PAST MEDICAL HISTORY Diagnosis Date - Arthritis - Benign neoplasm of colon - Diverticulosis of colon (without mention of hemorrhage) - Essential hypertension, benign - Generalized osteoarthrosis, unspecified site - Impaired fasting glucose - Lumbago low back pain - Macular degeneration (senile) of retina, unspecified - Obesity, unspecified - Other tenosynovitis of hand and wrist - Personal history of colonic polyps - Pure hypercholesterolemia - Snoring PAST SURGICAL HISTORY Procedure Laterality Date - ABDOMINAL SURGERY HX - BACK SURGERY HX - COLONOSCOP W/ OR W/O [facility] SPEC 2002 Colonoscopy WNL - COLONOSCOP W/ OR W/O BRS SPEC 11/23/05 Colonoscopy - COLONOSCOP W/ OR W/O [facility] SPEC 02/03/11 - COLONOSCOP W/ OR W/O [facility] SPEC 06/05/16 Colonoscopy - DANDC, DIAG AND/OR THERAPEUTIC Dilation AND curettage - EYE SURGERY HX - JOINT REPLACEMENT HX - LIGATE FALLOPIAN TUBE Tubal ligation - PAST SURGICAL HISTORY OF 1997 BSO hysterectomy - PAST SURGICAL HISTORY OF benign tumor and cyst - negative - PAST SURGICAL HISTORY OF 03/08 bone density study WNL - PAST SURGICAL HISTORY OF 02/07 Cariovascular stress test negative - PAST SURGICAL HISTORY OF foot surgery - REMOVAL GALLBLADDER 1998 Cholecystectomy - SKIN BIOPSY HX - VAGINAL HYSTERECTOMY Current Outpatient Medications Medication Sig Dispense Refill - diclofenac, EC, 75 mg ORAL EC tablet Take one(1) tablet two(2) times daily. 0 - HYDROCHLOROTHIAZIDE 25 MG TAB Take one(1) tablet daily. 0 - LIPITOR 10 MG TAB Take one(1) tablet daily. 0 - MAVIK 4 MG TAB Take one(1) tablet daily. 0 - VIACTIV 500 MG-100 UNIT-40 MCG CHEWABLE TAB two (2) daily 0 - polyethylene glycol 3350 (MIRALAX, GLYCOLAX) 17 gram/dose powder Use as directed for Miralax / Gatorade Bowel Prep Kit 238 g 0 - Bisacodyl (DULCOLAX) 5 mg tab Use as directed for Miralax / Gatorade Bowel Prep Kit 4 tablet 0 No current facility-administered medications for this visit. ALLERGIES Allergen Reactions - Asa [Salicylates] Intolerance can't take due to Macular Degeneration - Lodine [Etodolac] Intolerance not effective PHYSICAL EXAMINATION BP 120/62 Pulse 60 Wt 143 lb (64.9kg) SpO2 99% General Appearance: alert, oriented x 3, pleasant and in no acute distress Eyes: Negative for significant chage in vision, and significant vision problems Oropharynx:Lips, tongue, and oral mucosa normal. There is no thrush or oral ulcers. Lungs: breath sounds clear to auscultation bilaterally, no crackles, rhonchi, or wheezes Heart: regular rate and rhythm, no murmurs or gallops Abdomen: not distended, normal bowel sounds, soft and depressible, no guarding or rebound, no palpable mass, no organomegaly Rectal exam: deferred Extremities: no cyanosis or edema Skin: no jaundice, no spider angiomas, no palmar erythema Neuro: alert, oriented x 3, pleasant and in no acute distress IMPRESSION (Z86.010) Personal history of colonic polyps (primary encounter diagnosis) (D12.2) Adenomatous polyp of ascending colon PLAN ASSESSMENT/PLAN: 1. Personal history of colonic polyps - ICD9: V12.72, ICD10: Z86.010 (primary diagnosis) 2. Adenomatous polyp of asce (more content not included)... [facility] Clinical Note 05-29-2021 Note Date & Type Note Facility 05-29-2021 Note HNO ID: [id number] Author: Gracy Aguilar RN Service: ? Author Type: Registered Nurse Type: Nursing Progress Note Filed: 05/29/2021 8:40 AM Note Text: Patient sitting up in bed tolerating snack and drink without problems. Gracy Aguilar RN [facility] Summary Purpose Family History No Family History Records Found Advance Directives No Advanced Directives Records Found Additional Source Comments INFORMATION SOURCE (unrecogn ized section and content) FOR RECORDS PERTAINING TO PATIENTS WHO ARE OR HAVE BEEN ENROLLED IN A CHEMICAL DEPENDENCY/SUBSTANCEABUSE PROGRAM, SOME INFORMATION MAY BE OMITTED. This clinical summary was aggregated from multiple sources. Caution should be exercised in using it in the provision of clinical care. This summary normalizes information from multiple sources, and as a consequence, information in this document may materially change the coding, format and clinical context of patient data. In addition, data may be omitted in some cases. CLINICAL DECISIONS SHOULD BE BASED ON THE PRIMARY CLINICAL RECORDS. [facility]. provides no warranty or guarantee of the accuracy or completeness of information in this document.
[2023-12-08 15:33] LABS: Absolute Lymphocyte Count 2.17 X10^3/uL (0.83-4.51); Absolute Neutrophil Count 6.6 X10^3/uL (2.0-7.7); Basophil# 0.05 X10^3/uL; Basophil% 0.5 % (0-1); Eosinophil# 0.07 X10^3/uL; Eosinophils% 0.7 % (0-5); Hematocrit 38.2 % (37-47); Hemoglobin 12.3 g/dL (12.0-15.0); Lymphocyte # 2.17 X10^3/ul (0.83-4.51); Lymphocyte % 22.1 % (19-41); Mean Corp Hgb Conc 32.2 g/dL (32-36); Mean Corpuscular Hgb 31.5 pg (27.0-32.0); Mean Corpuscular Volume 97.9 fL (81-99); Mean Platelet Vol. 10.1 fl (6.2-12.0); Monocyte# 0.85 X10^3/uL; Monocyte% 8.7 % (0-10); NRBC Flagged by Analyzer 0 % (0-5); Neutrophil # 6.64 X10^3/uL (2.7-7.7); Neutrophil % 67.7 % (47-70); Platelet Count 264 K/mm3 (150-450); RBC Distribution Width CV 13.1 % (11.6-14.6); White Blood Count 9.8 K/mm3 (4.4-11.0)
[2023-12-08 15:43] LABS: Erythrocyte Sedimentation Rate 16 mm/hr (0-30)
[2023-12-08 15:48] LABS: D-Dimer Quantitative (DVT/PE) < 0.27 FEU/ug/m (0.27-0.49)
[2023-12-08 16:18] LABS: AST(SGOT) 15 U/L (15-37); Alanine Aminotransfer ALT/SGPT 18 U/L (13-56); Albumin, Serum 3.4 g/dL (3.2-5.0); Alkaline Phosphatase 54 U/L (45-117); Anion Gap 5 (5-15); BUN 19 mg/dL (7-18); BUN/Creat Ratio 20.6 RATIO (10-20); CRP < 2.90 mg/L (0.0-3.0); Calcium,Total 9.1 mg/dL (8.5-10.1); Chloride 105 mmol/L (98-107); Creatinine, Serum 0.92 mg/dL (0.55-1.02); EST Glomerular Filtration Rate 62 mL/min (>60); Est Glom Filt Rate - Afr Amer 75 mL/min (>60); Globulin 3.5 g/dL (2.2-4.2); Glucose 118 mg/dL (74-106); Protein, Total 6.9 g/dL (6.4-8.2); Sodium Level 136 mmol/L (136-145)
== END | disposition home or self-care (01) ==
LOC: BFHLAB 13:31
PROVIDERS: PCP Nurse Practitioner Family; Visit Provider Nurse Practitioner Family
DX: H53.9 Unspecified visual disturbance (principal); R26.89 Other abnormalities of gait and mobility
CPT/HCPCS: 36415; 80053; 85025; 85379; 85652; 86140

== ENCOUNTER 2023-12-31 10:09 | Outpatient (CLI) | payer MEDICARE, SELFPAY ==
[2023-12-31 10:17] VITALS: BP 134/50; PULSE 66; RESP 16; TEMP 36.1; O2SAT 99; BMI 24.4
[2023-12-31] MEDS: DENOSUMAB 60 MG/ML SC (10:37)
--- OUTSIDE RECORDS SUMMARY | 2023-12-31 10:46 | XMS RPT_ITS | CCD ---
Author Name Unknown Address [facility] [place] [address] Organization [facility] Results Test Name Value Interpretation Reference Range Facil ity Progress note 07-01-2021 Note Date & Type Note Facility 07-01-2021 Note HNO ID: [id number] Author: Iraida Nascimento APRN.HELMINTHOLOGY TEACHER Service: ? Author Type: Nurse Practitioner Type: [...] SURGERY HX - COLONOSCOP W/ OR W/O [facility] SPEC 2002 Colonoscopy WNL - COLONOSCOP W/ OR W/O [facility] SPEC 11/23/05 Colonoscopy - COLONOSCOP W/ OR W/O [facility] SPEC 02/03/11 - COLONOSCOP W/ OR W/O [facility] SPEC 06/05/16 Colonoscopy - DANDC, DIAG [...] polyp of asce (more content not included)... [facility] Clinical Note 05-29-2021 Note Date & Type Note Facility 05-29-2021 Note HNO ID: [id number] Author: Gracy Aguilar RN Service: ? Author Type: Registered Nurse Type: Nursing Progress Note Filed: 05/29/2021 8:40 AM Note Text: Patient sitting up in bed tolerating snack and drink without problems. Gracy Aguilar RN [facility] Summary Purpose Family History No Family History [...] BE BASED ON THE PRIMARY CLINICAL RECORDS. [facility]. provides no warranty or guarantee of the accuracy or completeness of information in this document.
== END 2023-12-31 10:10 | disposition home or self-care (01) ==
LOC: MEDOUTP 10:10
PROVIDERS: PCP Nurse Practitioner Family; Referring Provider Family Medicine; Visit Provider Family Medicine
DX: M81.0 Age-related osteoporosis without current pathological fracture (principal)
CPT/HCPCS: 96372; J0897

== ENCOUNTER 2024-03-16 19:49 | Emergency (ER) | payer MEDICARE, SELFPAY ==
[2024-03-16 19:50] VITALS: BP 163/65; PULSE 67; RESP 16; TEMP 36.6; O2SAT 100; BMI 27.8
[2024-03-16] MEDS: Amox/Clavulanate 875 MG Tablet PO (20:37)
[2024-03-16] MEDS: Diphth,Pertuss(Acell),Tet Vac 0.5 ML Vial IM (20:38)
--- NOTE | 2024-03-16 20:43 | EX.ED.GENINJ ---
HPI History of Present Illness Chief Complaint: Bite Narrative Narrative: 83-year-old female with dog bite to the left ring finger. She states her dog has a bad hip and was trying to jump on her lap and grazed her left ring finger medially with his teeth. Shots are up-to-date. Last tetanus is unknown for her however. She does not have a lot of pain. She did irrigate her wound did not clean it out with peroxide. PFSH PFS Medical History HLD (hyperlipidemia) HTN (hypertension) Macular degeneration Obesity Home Medications Trandolapril [Mavik] 4 mg PO DAILY blood pressure 12/17/15 [History Last Taken 10/06/22] hydrochlorothiazide 25 mg tablet 12.5 mg PO DAILY diuretic 12/17/15 [History Last Taken 10/06/22] atorvastatin 40 mg tablet 40 mg PO QHS CHOLESTEROL 10/07/22 [History Last Taken 10/06/22] clopidogrel 75 mg tablet 75 mg PO DAILY BLOOD THINNER 10/07/22 [History Last Taken 10/06/22] ursodiol 250 mg tablet 250 mg PO BID #60 tabs 10/09/22 [Rx Last Taken Unknown] amoxicillin 875 mg-potassium clavulanate 125 mg tablet 1 tab PO BID #20 tabs 03/16/24 [Rx Last Taken Unknown] Allergy/AdvReac Type Severity Reaction Status Date / Time aspirin AdvReac Unknown Verified 03/16/24 19:53 Family History Father Myocardial infarction Brother Myocardial infarction CVA (cerebral vascular accident) Mother Heart disease Surgical History H/O: hysterectomy History of knee replacement procedure of left knee History of spinal fusion Hx of cholecystectomy Social History household members: spouse Smoking Status: Never smoker alcohol intake: never substance use type: does not use ROS ROS ED Constitutional Constitutional ED: Denies chills, fever(s) or sweats Eyes Eyes: Denies blurry vision or change in vision ENT ENT ED: Denies ear pain or sore throat Cardiovascular Cardiovascular: Denies chest pain, palpitations or racing heartbeat Respiratory/Chest Respiratory/Chest: Denies cough, dyspnea or sputum Gastrointestinal Gastrointestinal: Denies abdominal pain, constipation, diarrhea, nausea or vomiting Genitourinary Genitourinary ED: Denies dysuria, hematuria or urinary frequency Musculoskeletal Musculoskeletal: Denies arthralgias, myalgias or neck pain Integumentary Reports other Details: Dog bite left ring finger ; Denies abscess, Abrasions or rash Neurologic Neurologic: Denies headache(s), paresthesias or weakness Psychiatric Psychiatric: Denies anxiety, depression, suicidal ideation or suicidal thoughts Endocrine Endocrinology: Denies polydipsia or polyuria EXAM Physical Exam Const Vital Signs: 03/16/24 19:50 Temperature 97.8 F Temperature Source Temporal Pulse Rate 67 Respiratory Rate 16 Blood Pressure 163/65 H Blood Pressure Mean 97 Pulse Ox 100 Oxygen Delivery Method Room Air Positive well nourished General Appearance ED: NAD HEENT atraumatic Eyes PERRL and EOMs intact bilaterally Resp normal respiratory effort Cardio regular rhythm Rate: regular rate Extremity Extremity Narrative: Laceration to the medial aspect of the left ring finger not involving the nailbed but it is about 2 cm. It is not closely approximated but is not gaping. No tendon or bone exposure. No bony tenderness. Neurovascular intact. Neuro oriented x3 Sensorium / Orientation: alert Psych mental status grossly normal MDM MDM MDM Narrative Medical decision making narrative: 83-year-old female presenting with dog bite to the left ring finger. I do not believe she needs any imaging. Tetanus was updated today. Wound was cleaned and dressed. She started on Augmentin. She given wound care instructions and return precautions. Impression: 1. Dog bite left ring finger 2. Tetanus immunization Discharge Plan Triage Chief Complaint: Bite ED Provider: Gaurav Parker Dx/Rx/DC Orders Instructions: ED Dog Bite Prescriptions: New amoxicillin-pot clavulanate 875-125 mg tablet 1 tab PO BID Qty: 20 0RF No Action hydrochlorothiazide 25 MG tablet 12.5 mg PO DAILY Patient Comments: blood pressure Trandolapril [Mavik] 4 MG tablet 4 mg PO DAILY Patient Comments: blood pressure/heart atorvastatin 40 MG tablet 40 mg PO QHS clopidogrel 75 MG tablet 75 mg PO DAILY ursodiol 250 mg tablet 250 mg PO BID Qty: 60 0RF Primary Care Provider: Liane Stephenson Referrals: Liane Stephenson DO [Primary Care Provider] - Disposition Disposition: Home, Self Care
== END 2024-03-16 21:00 | disposition home or self-care (01) ==
PROVIDERS: Emergency Provider Student in an Organized Health Care Education/Training Program; PCP Family Medicine; Visit Provider Student in an Organized Health Care Education/Training Program
DX: S61.255A Open bite of left ring finger without damage to nail, initial encounter (principal); W54.0XXA Bitten by dog, initial encounter; Z23 Encounter for immunization; E78.5 Hyperlipidemia, unspecified; I10 Essential (primary) hypertension; Z79.899 Other long term (current) drug therapy; Z90.710 Acquired absence of both cervix and uterus; Z96.652 Presence of left artificial knee joint; Z90.49 Acquired absence of other specified parts of digestive tract
CPT/HCPCS: 90471; 90715; 99282

== ENCOUNTER → 2024-03-31 | Outpatient (CLI) | payer MEDICARE, SELFPAY ==
[2024-03-31 10:36] LABS: Absolute Lymphocyte Count 1.96 X10^3/uL (0.83-4.51); Absolute Neutrophil Count 3.5 X10^3/uL (2.0-7.7); Basophil# 0.05 X10^3/uL; Basophil% 0.8 % (0-1); Eosinophils% 4.8 % (0-5); Hematocrit 40.8 % (37-47); Hemoglobin 13.2 g/dL (12.0-15.0); Lymphocyte # 1.96 X10^3/ul (0.83-4.51); Lymphocyte % 31.2 % (19-41); Mean Corp Hgb Conc 32.4 g/dL (32-36); Mean Corpuscular Hgb 30.9 pg (27.0-32.0); Mean Corpuscular Volume 95.6 fL (81-99); Mean Platelet Vol. 10.3 fl (6.2-12.0); Monocyte# 0.45 X10^3/uL; Monocyte% 7.2 % (0-10); NRBC Flagged by Analyzer 0 % (0-5); Neutrophil # 3.51 X10^3/uL (2.7-7.7); Neutrophil % 55.8 % (47-70); Platelet Count 291 K/mm3 (150-450); RBC Distribution Width CV 13.2 % (11.6-14.6); RBC Distribution Width SD 46.3 fl (35.1-43.9); Red Blood Count 4.27 M/mm3 (4.2-5.4); White Blood Count 6.3 K/mm3 (4.4-11.0)
[2024-03-31 11:00] LABS: AST(SGOT) 19 U/L (15-37); Alanine Aminotransfer ALT/SGPT 15 U/L (13-56); Albumin, Serum 3.6 g/dL (3.2-5.0); Alkaline Phosphatase 48 U/L (45-117); Anion Gap 7 (5-15); BUN 13 mg/dL (7-18); BUN/Creat Ratio 12.7 RATIO (10-20); Calcium,Total 8.4 mg/dL (8.5-10.1); Chloride 107 mmol/L (98-107); Cholesterol 178 mg/dL (200); Creatinine, Serum 1.02 mg/dL (0.55-1.02); EST Glomerular Filtration Rate 55 mL/min (>60); Est Glom Filt Rate - Afr Amer 67 mL/min (>60); Globulin 3.5 g/dL (2.2-4.2); Glucose 94 mg/dL (74-106); High Density Lipoprotein 60 mg/dL; Potassium 3.9 mmol/L (3.5-5.1); Protein, Total 7.1 g/dL (6.4-8.2); Sodium Level 139 mmol/L (136-145); Triglycerides 119 mg/dL; Very Low Density Lipoprotein 24 mg/dL (5-40)
== END | disposition home or self-care (01) ==
LOC: MTLAB 08:00
PROVIDERS: PCP Family Medicine; Referring Provider Family Medicine; Visit Provider Family Medicine
DX: Z51.81 Encounter for therapeutic drug level monitoring (principal); E78.5 Hyperlipidemia, unspecified
CPT/HCPCS: 36415; 80053; 80061; 85025

== ENCOUNTER → 2024-06-19 | Outpatient (CLI) | payer MEDICARE, SELFPAY ==
--- NOTE | 2024-06-19 09:31 | RAD_ITS ---
STUDY: X-RAY - PELVIS AND RIGHT HIP REASON FOR EXAM: Female, 83 years old. GROING PAIN TECHNIQUE: 3 views of the pelvis and hip. COMPARISON: 09/07/2023. FINDINGS: There is a non-specific bowel gas pattern. Normal visualized soft tissue structures. Normal bilateral iliac wings, sacroiliac joints and visualized sacrum. Normal bilateral superior and inferior pubic rami. Normal pubic symphysis. Normal bilateral ischial tuberosities. Normal visualized femoral head. Normal acetabulum. Normal hip joint. RAD/HIP, UNI W/ Pelvis 2-3 Views IMPRESSION: No definite acute or significant abnormality seen. Electronically Signed: Hair Burch MD at 22:36 EDT ,
== END | disposition home or self-care (01) ==
PROVIDERS: PCP Family Medicine; Referring Provider Anesthesiology Pain Medicine; Visit Provider Anesthesiology Pain Medicine
DX: R10.30 Lower abdominal pain, unspecified (principal)
CPT/HCPCS: 73502

== ENCOUNTER 2024-06-30 10:19 | Outpatient (CLI) | payer MEDICARE, SELFPAY ==
[2024-06-30 10:28] VITALS: BP 133/50; PULSE 54; RESP 16; TEMP 35.9; O2SAT 100
[2024-06-30] MEDS: DENOSUMAB 60 MG/ML SC (10:45)
== END 2024-06-30 23:59 | disposition home or self-care (01) ==
LOC: MEDOUTP 10:20
PROVIDERS: PCP Family Medicine; Referring Provider Family Medicine; Visit Provider Family Medicine
DX: M81.0 Age-related osteoporosis without current pathological fracture (principal)
CPT/HCPCS: 96372; J0897

== ENCOUNTER 2024-12-29 10:24 | Outpatient (CLI) | payer MEDICARE, SELFPAY ==
[2024-12-29 10:51] VITALS: BP 138/68; PULSE 64; RESP 16; TEMP 36; O2SAT 100; BMI 28.2
[2024-12-29] MEDS: DENOSUMAB 60 MG/ML SC (10:53)
== END 2024-12-29 23:59 | disposition home or self-care (01) ==
LOC: MEDOUTP 10:26
PROVIDERS: PCP Family Medicine; Referring Provider Family Medicine; Visit Provider Family Medicine
DX: M81.0 Age-related osteoporosis without current pathological fracture (principal)
CPT/HCPCS: 96372; J0897

== ENCOUNTER → 2025-04-10 | Outpatient (CLI) | payer MEDICARE, SELFPAY ==
--- OUTSIDE RECORDS SUMMARY | 2025-04-10 08:10 | XMS RPT_ITS | CCD ---
Author Organization [facility] Care Team Providers Care Farmworker Rice Name Role Phone Dr. Liane Stephenson Primary Care Provider Dr. Fabrizio Maier Emergency Provider [phone] Ignacia Parsons Admit Provider Dr. Ignacia Parsons Attending Provider [phone] Ignacia Parsons Other Provider Dr. Rafa Morrow Attending Provider Dr. Rafa Morrow Other Provider [phone] Friend, Dr. Golden Attending Provider [phone] Dr. Rafa Morrow Referring Provider Gaurav Parker Attending Unavailable Malys, Liane Primary Care Unavailable Malys, Liane Primary Care Unavailable Malys, Liane Attending Unavailable Malys, Liane Referring Unavailable Malys, Liane Primary Care Unavailable Malys, Liane Attending Unavailable Malys, Liane Referring Unavailable Malys, Liane Referring Unavailable Malys, Liane Primary Care Unavailable Malys, Liane Attending Unavailable Malys, Liane Primary Care Unavailable Arash Cruz Attending Unavailable Arash Cruz Referring Unavailable Allergies Allergy Classification Reported Allergen(s) Allergy Type Date of Onset Reaction(s) Facility (14 sources) Aspirin Drug Allergy 07-01-2021 Unknown [facility] (1 source) Aspirin Drug Allergy 12-29-2024 [facility] Repository Medications Current Medications Medication Drug Class(es) Dates Sig (Normalized) Sig (Original) amoxicillin 875 mg / clavulanate 125 mg oral tablet (1 source) Penicillin-class Antibacterial Start: 03-16-2024 take 1 tablet by mouth twice daily Amoxicillin-Pot Clavulanate Active 1 TABLET PO TWICE A DAY March 16, 2024 8:45pm atorvastatin 40 mg oral tablet (20 sources) HMG-CoA Reductase Inhibitor Start: 10-07-2022 take 40 mg by mouth at bedtime Atorvastatin Active 40 MG PO AT BEDTIME October 07, 2022 6:34pm Start: 06-16-2019 End: 10-07-2022 take 20 mg by mouth once daily at bedtime Atorvastatin Discontinued 40 MG PO AT BEDTIME June 16, 2019 12:00am October 07, 2022 6:34pm Decrease to 20 mg daily if she gets myalgia or other side effects of statin Start: 12-17-2015 End: 06-16-2019 take 20 mg by mouth once daily Atorvastatin Discontinu ed 20 MG PO DAILY December 17, 2015 1:00am June 16, 2019 11:18am clopidogrel 75 mg oral tablet (20 sources) P2Y12 Platelet Inhibitor Start: 06-16-2019 End: 10-07-2022 take 75 mg by mouth once daily Clopidogrel Active 75 MG PO DAILY October 07, 2022 6:34pm hydroCHLOROthiazide 25 mg oral tablet (14 sources) Thiazide Diuretic Start: 12-17-2015 take 12.5 mg by mouth once daily Hydrochlorothiazide Active 12.5 MG PO DAILY December 17, 2015 1:00am meclizine hydrochloride 12.5 mg oral tablet (2 sources) Antiemetic Start: 06-01-2021 Meclizine Active 12.5 MG PO .4 TIMES DAILY June 01, 2021 12:23pm trandolapril 4 mg oral tablet (14 sources) Angiotensin Converting Enzyme Inhibitor Start: 12-17-2015 take 1 tablet by mouth once daily Trandolapril (Mavik) 4 MG tablet Active 4 MG PO DAILY December 17, 2015 1:00am ursodiol 250 mg oral tablet (11 sources) Bile Acid Start: 10-09-2022 take 250 mg by mouth twice daily Ursodiol Active 250 MG PO TWICE A DAY October 09, 2022 1:00am Completed/Discontinued Medications Medication Drug Class(es) Dates Sig (Normalized) Sig (Original) diclofenac sodium 75 mg delayed release oral tablet (20 sources) Nonsteroidal Anti-inflammatory Drug Start: 06-15-2019 End: 06-16-2019 take 75 mg by mouth twice daily at mealtime Diclofenac Sodium Discontinued 75 MG PO TWICE DAILY WITH MEALS June 15, 2019 12:00am June 16, 2019 11:19am Start: 12-17-2015 End: 01-01-2016 take 75 mg by mouth twice daily Diclofenac Sodium Discontinued 75 MG PO TWICE A DAY December 17, 2015 1:00am January 01, 2016 1:27pm Problems Active Problems Problem Classification Problem Date Documented Da te Episodic/Chronic Blindness and vision defects (14 sources) Visual disturbance; Translations: [Unspecified visual disturbance] 06-15-2019 Episodic Conditions associated with dizziness or vertigo (14 sources) Vertigo of central origin; Translations: [Vertigo of central origin] 06-09-2021 Episodic Disorders of lipid metabolism (14 sources) Hyperlipidemia; Translations: [Hyperlipidemia, unspecified] 05-31-2021 Chronic Essential hypertension (14 sources) Hypertensive disorder; Translations: [Essential (primary) hypertension] 05-31-2021 Chronic Nausea and vomiting (16 sources) Nausea and vomiting; Translations: [Nausea with vomiting, unspecified] Episodic Osteoporosis (1 source) Age-related osteoporosis without current pathological fracture; Translations: [Age-related osteoporosis without current pathological fracture] Onset: 01-11-2025 Chronic Other liver diseases (12 sources) Inflammatory disease of liver; Translations: [Inflammatory liver disease, unspecified] 10-17-2022 Chronic Other liver diseases (4 sources) Inflammatory liver disease, unspecified; Translations: [Hepatitis, unspecified] Chronic Other liver diseases (16 sources) Enzyme level - finding; Translations: [Elevated transaminase measurement] Episodic Other non-traumatic joint disorders (9 sources) Pain in wrist; Translations: [Pain in right wrist] 01-01-2023 Episodic Other nutritional; endocrine; and metabolic disorders (14 sources) Obesity; Translations: [Obesity, unspecified] 05-31-2021 Chronic Pancreatic disorders (not diabetes) (16 sources) Acute pancreatitis; Translations: [Acute pancreatitis without necrosis or infection, unspecified] Episodic Retinal detachments; defects; vascular occlusion; and retinopathy (14 sources) Degenerative disorder of macula ; Translations: [Unspecified macular degeneration] 05-31-2021 Chronic Past or Other Problems Problem Classification Problem Date Documented Da te Episodic/Chronic Abdominal pain (1 source) Lower abdominal pain, unspecified; Translations: [Lower abdominal pain, unspecified] Onset: 07-14-2024 Episodic Open wounds of extremities (1 source) Open bite of left ring finger without damage to nail, initial encounter; Translations: [Open bite of left ring finger without damage to nail, initial encounter] Onset: 03-21-2024 Episodic Other aftercare (1 source) Encounter for therapeutic drug level monitoring; Translations: [Encounter for therapeutic drug level monitoring] Onset: 04-07-2024 Episodic Results Test Name Value Interpretation Reference Range Facility HIP, UNI W/ Pelvis 2-3 Views on 06-19-2024 HIP, UNI W/ Pelvis 2-3 Views [facility] Imaging Services [address] [place], [place] [id number] HIP, UNI W/ Pelvis 2-3 Views MR#: [id number] Acct: [id number] Name: MELYSSA MATA Rep #: [id number] : 1940 F 83 From: Hair mattson MD PCP: Dr. Liane Stephenson, DO Status: [facility] CL Study: HIP, UNI W/ Pelvis 2-3 Views Date of Exam: 10/31 Exam# [id number] Ordering [place]: [place] [id number] STUDY: X-RAY - PELVIS AND RIGHT HIP REASON FOR EXAM: Female, 83 years old. GROING PAIN TECHNIQUE: 3 views of the pelvis and hip. COMPARISON: 09/07/2023. FINDINGS: There is a non-specific bowel gas pattern. Normal visualized soft tissue structures. Normal bilateral iliac wings, sacroiliac joints and visualized sacrum. Normal bilateral superior and inferior pubic rami. Normal pubic symphysis. Normal bilateral ischial tuberosities. Normal visualized femoral head. Normal acetabulum. Normal hip joint. RAD/HIP, UNI W/ Pelvis 2-3 Views IMPRESSION: No definite acute or significant abnormality seen. Electronically Signed: Hair Burch MD at 22:36 EDT , CC: Dr. Arash Cruz MD; Dr. Liane Stephenson DO Manufacturing Engineer Assembly: Signed Normal [facility] CBC W/Diff, Automatedon 05-2 Absolute Lymph 1.96 X10 3/uL Normal 0.83-4.51 [facility] Comment on above: Performed By: #### L 500.4050, L100.0100, L500.4100 #### [facility] [address] [place], [address] Absolute Neut 3.5 X10 3/uL Normal 2.0-7.7 [facility] Comment on above: Performed By: #### L 500.4050, L100.0100, L500.4100 #### [facility] [address] [place], [address] Basophils/100 WBC (Bld) 0.8 % Normal 0-1 [facility] Comment on above: Performed By: #### L 500.4050, L100.0100, L500.4100 #### [facility] [address] [place], [address] Eosinophils/100 WBC (Bld) 4.8 % Normal 0-5 [facility] Comment on above: Performed By: #### L 500.4050, L100.0100, L500.4100 #### [facility] [address] [place], [address] Erythrocyte distribution width (RBC) [Ratio] 13.2 % Normal 11.6-14.6 [facility] Comment on above: Performed By: #### L 500.4050, L100.0100, L500.4100 #### [facility] [address] [place], [address] Hematocrit (Bld) [Volume fraction] 40.8 % Normal 37-47 [facility] Comment on above: Performed By: #### L 500.4050, L100.0100, L500.4100 #### [facility] [address] [place], [address] Hemoglobin (Bld) [Mass/Vol] 13.2 g/dL Normal 12.0-15.0 [facility] Comment on above: Performed By: #### L 500.4050, L100.0100, L500.4100 #### [facility] [address] [place], [address] IG% 0.200 Normal 0.0-0.9 [facility] Comment on above: Result Comment: IG% - Immature Granulocytes (promyelocytes, myelocytes and metamyelocytes) > 1% indicates that a LEFT SHIFT is Present. Performed By: #### L 500.4050, L100.0100, L500.4100 #### [facility] [address] [place], [address] Lymphocytes/100 WBC (Bld) 31.2 % Normal 19-41 [facility] Comment on above: Performed By: #### L 500.4050, L100.0100, L500.4100 #### [facility] [address] [place], [address] MCH (RBC) [Entitic mass] 30.9 pg Normal 27.0-32.0 [facility] Comment on above: Performed By: #### L 500.4050, L100.0100, L500.4100 #### [facility] [address] [place], [address] MCHC (RBC) [Mass/Vol] 32.4 g/dL Normal 32-36 [facility] Comment on above: Performed By: #### L 500.4050, L100.0100, L500.4100 #### [facility] [address] [place], [address] MCV (RBC) [Entitic vol] 95.6 fL Normal 81-99 [facility] Comment on above: Performed By: #### L 500.4050, L100.0100, L500.4100 #### [facility] [address] [place], [address] Monocytes/100 WBC (Bld) 7.2 % Normal 0-10 [facility] Comment on above: Performed By: #### L 500.4050, L100.0100, L500.4100 #### [facility] [address] [place], [address] Neutrophils/100 WBC (Bld) 55.8 % Normal 47-70 [facility] Comment on above: Performed By: #### L 500.4050, L100.0100, L500.4100 #### [facility] [address] [place], [address] Nucleated RBC (Bld) [#/Vol] 0 10*3/uL Normal 0-5 [facility] Comment on above: Performed By: #### L 500.4050, L100.0100, L500.4100 #### [facility] [address] [place], [address] Platelet mean volume (Bld) [Entitic vol] 10.3 fL Normal 6.2-12.0 [facility] Comment on above: Performed By: #### L 500.4050, L100.0100, L500.4100 #### [facility] [address] [place], [address] Platelets (Bld) [#/Vol] 291 10*3/uL Normal 150-450 [facility] Comment on above: Performed By: #### L 500.4050, L100.0100, L500.4100 #### [facility] [address], [address] RBC (Bld) [#/Vol] 4.27 10*6/uL Normal 4.2-5.4 [facility] Comment on above: Performed By: #### L 500.4050, L100.0100, L500.4100 #### [facility] [address] [place], [address] RDW SD 46.3 fl High 35.1-43.9 [facility] Comment on above: Performed By: #### L 500.4050, L100.0100, L500.4100 #### [facility] [address] [place], [address] WBC (Bld) [#/Vol] 6.3 10*3/uL Normal 4.4-11.0 [facility] Comment on above: Performed By: #### L 500.4050, L100.0100, L500.4100 #### [facility] [address] [place], [address] Comprehensive Metabolic Prof [facility] 03-31-2024 Albumin [Mass/Vol] 3.6 g/dL Normal 3.2-5.0 [facility] Comment on above: Performed By: #### L 500.4050, L100.0100, L500.4100 #### [facility] [address] [place], [address] Albumin/Globulin [Mass ratio] 1.0 {ratio} Normal 0.9-2.4 [facility] Comment on above: Performed By: #### L 500.4050, L100.0100, L500.4100 #### [facility] [address] [place], [address] ALK P 48 U/L Normal 45-117 [facility] Comment on above: Performed By: #### L 500.4050, L100.0100, L500.4100 #### [facility] [address] [place], [address] ALT [Catalytic activity/Vol] 15 U/L Normal 13-56 [facility] Comment on above: Performed By: #### L 500.4050, L100.0100, L500.4100 #### [facility] [address] [place], [address] AST [Catalytic activity/Vol] 19 U/L Normal 15-37 [facility] Comment on above: Performed By: #### L 500.4050, L100.0100, L500.4100 #### [facility] [address] [place], [address] Bilirubin [Mass/Vol] 0.30 mg/dL Normal 0.20-1.00 [facility] Comment on above: Result Comment: For patients on eltrombopag therapy, use of Dimension [place] TBIL is not recommended. Performed By: #### L 500.4050, L100.0100, L500.4100 #### [facility] [address] [place], [address] BUN/CRE 12.7 RATIO Normal 10-20 [facility] Comment on above: Performed By: #### L 500.4050, L100.0100, L500.4100 #### [facility] [address] [place], [address] CA,Total 8.4 mg/dL Low 8.5-10.1 [facility] Comment on above: Performed By: #### L 500.4050, L100.0100, L500.4100 #### [facility] [address] [place], [address] Chloride [Moles/Vol] 107 mmol/L Normal 98-107 [facility] Comment on above: Performed By: #### L 500.4050, L100.0100, L500.4100 #### [facility] [address] [place], [address] CO2 [Moles/Vol] 25.0 mmol/L Normal 21.0-32.0 [facility] Comment on above: Performed By: #### L 500.4050, L100.0100, L500.4100 #### [facility] [address] [place], [address] Creatinine [Mass/Vol] 1.02 mg/dL Normal 0.55-1.02 [facility] Comment on above: Result Comment: The validity of the calculated GFR GFRAA in patients over 70 years has not been determined. Clinical correlation is essential. Performed By: #### L 500.4050, L100.0100, L500.4100 #### [facility] [address] [place], [address] EST GFR - AA 67 mL/min Normal >60 [facility] Comment on above: Result Comment: Afri can Faroese GFR Calc Performed By: #### L 500.4050, L100.0100, L500.4100 #### [facility] [address] [place], [address] GAP 7 Normal 5-15 [facility] Comment on above: Performed By: #### L 500.4050, L100.0100, L500.4100 #### [facility] [address] [place], [address] GFR/1.73 sq M.predicted among non-blacks MDRD (S/P/Bld) [Vol rate/Area] 55 mL/min/{1.73_m2} Low >60 [facility] Comment on above: Result Comment: Non- GFR Calc Performed By: #### L 500.4050, L100.0100, L500.4100 #### [facility] [address] [place], [address] Globulin (S) [Mass/Vol] 3.5 g/dL Normal 2.2-4.2 [facility] Comment on above: Performed By: #### L 500.4050, L100.0100, L500.4100 #### [facility] [address] [place], [address] Glucose [Mass/Vol] 94 mg/dL Normal 74-106 [facility] Comment on above: Performed By: #### L 500.4050, L100.0100, L500.4100 #### [facility] [address] [place], [address] Potassium [Moles/Vol] 3.9 mmol/L Normal 3.5-5.1 [facility] Comment on above: Performed By: #### L 500.4050, L100.0100, L500.4100 #### [facility] [address] [place], [address] Sodium [Moles/Vol] 139 mmol/L Normal 136-145 [facility] Comment on above: Performed By: #### L 500.4050, L100.0100, L500.4100 #### [facility] [address] [place], [address] T PROT 7.1 g/dL Normal 6.4-8.2 [facility] Comment on above: Performed By: #### L 500.4050, L100.0100, L500.4100 #### [facility] [address] [place], [address] Urea nitrogen [Mass/Vol] 13 mg/dL Normal 7-18 [facility] Comment on above: Performed By: #### L 500.4050, L100.0100, L500.4100 #### [facility] [address] [place], [address] Lipid Profileon 03-31-2024 Cholesterol [Mass/Vol] 178 mg/dL Normal 200 [facility] Comment on above: Result Comment: <200 mg/dL Desirable 200-240 mg/dL Borderline >240 mg/dL High Risk Performed By: #### L 500.4050, L100.0100, L500.4100 #### [facility] [address] [place], [address] Cholesterol in HDL [Mass/Vol] 60 mg/dL Normal [facility] Comment on above: Result Comment: The drugs N-Acetylcysteine and Metamizole may falsely depress this assay. Reference Range HDL <40 mg/dL Low HDL Cholesterol HDL >or= 60 mg/dL High HDL Cholesterol Performed By: #### L 500.4050, L100.0100, L500.4100 #### [facility] [address] [place], [address] Cholesterol in LDL [Mass/Vol] 94 mg/dL Normal 0-130 [facility] Comment on above: Performed By: #### L 500.4050, L100.0100, L500.4100 #### [facility] [address] [place], [address] Cholesterol in VLDL [Mass/Vol] 24 mg/dL Normal 5-40 [facility] Comment on above: Performed By: #### L 500.4050, L100.0100, L500.4100 #### [facility] [address] [place], [address] Triglyceride [Mass/Vol] 119 mg/dL Normal [facility] Comment on above: Result Comment: The drugs N-Acetylcysteine and Metamizole may falsely depress this assay. Serum Triglycerides Reference Interval Normal <150 mg/dL Borderline high 150 - 199 mg/dL High 200 - 499 mg/dL Very High > or = 500 mg/dL Performed By: #### L 500.4050, L100.0100, L500.4100 #### [facility] [address] [place], [address] Emergency Department Summary on 03-16-2024 Emergency Department Summary [facility] Medical Records Department [address] [place] [address] Emergency Department Summary 03/16/24 MR#: [id number] Acct: [id number] Name: MELYSSA MATA Rep #: [id number] : 1940 83 From: Gaurav Parker DO PCP: Dr. Liane Stephenson DO Status:REG ER Location: ED HPI History of Present Illness Chief Complaint: Bite Narrative Narrative: 83-year-old female with dog bite to the left ring finger. She states her dog has a bad hip and was trying to jump on her lap and grazed her left ring finger medially with his teeth. Shots are up-to-date. Last tetanus is unknown for her however. She does not have a lot of pain. She did irrigate her wound did not clean it out with peroxide. PFSH PFSH Medical History HLD (hyperlipidemia) HTN (hypertension) Macular degeneration Obesity Home Medications Trandolapril [Mavik] 4 mg PO DAILY blood pressure 12/17/15 [History Last Taken 10/06/22] hydrochlorothiazide 25 mg tablet 12.5 mg PO DAILY diuretic 12/17/15 [History Last Taken 10/06/22] atorvastatin 40 mg tablet 40 mg PO QHS CHOLESTEROL 10/07/22 [History Last Taken 10/06/22] clopidogrel 75 mg tablet 75 mg PO DAILY BLOOD THINNER 10/07/22 [History Last Taken 10/06/22] ursodiol 250 mg tablet 250 mg PO BID #60 tabs 10/09/22 [Rx Last Taken Unknown] amoxicillin 875 mg-potassium clavulanate 125 mg tablet 1 tab PO BID #20 tabs 03/16/24 [Rx Last Taken Unknown] Allergy/AdvReac Type Severity Reaction Status Date / Time aspirin AdvReac Unknown Verified 03/16/24 19:53 Family History Father Myocardial infarction Brother Myocardial infarction CVA (cerebral vascular accident) Mother Heart disease Surgical History H/O: hysterectomy History of knee replacement procedure of left knee History of spinal fusion Hx of cholecystectomy Social History household members: spouse Smoking Status: Never smoker alcohol intake: never substance use type: does not use ROS ROS ED Constitutional Constitutional ED: Denies chills, fever(s) or sweats Eyes Eyes: Denies blurry vision or change in vision ENT ENT ED: Denies ear pain or sore throat Cardiovascular Cardiovascular: Denies chest pain, palpitations or racing heartbeat Respiratory/Chest Respiratory/Chest: Denies cough, dyspnea or sputum Gastrointestinal Gastrointestinal: Denies abdominal pain, constipation, diarrhea, nausea or vomiting Genitourinary Genitourinary ED: Denies dysuria, hematuria or urinary frequency Musculoskeletal Musculoskeletal: Denies arthralgias, myalgias or neck pain Integumentary Reports other Details: Dog bite left ring finger ; Denies abscess, Abrasions or rash Neurologic Neurologic: Denies headache(s), paresthesias or weakness Psychiatric Psychiatric: Denies anxiety, depression, suicidal ideation or suicidal thoughts Endocrine Endocrinology: Denies polydipsia or polyuria EXAM Physical Exam Const Vital Signs: 03/16/24 19:50 Temperature 97.8 F Temperature Source Temporal Pulse Rate 67 Respiratory Rate 16 Blood Pressure 163/65 H Blood Pressure Mean 97 Pulse Ox 100 Oxygen Delivery Method Room Air Positive well nourished General Appearance ED: NAD HEENT atraumatic Eyes PERRL and EOMs intact bilaterally Resp normal respiratory effort Cardio regular rhythm Rate: regular rate Extremity Extremity Narrative: Laceration to the medial aspect of the left ring finger not involving the nailbed but it is about 2 cm. It is not closely approximated but is not gaping. No tendon or bone exposure. No bony tenderness. Neurovascular intact. Neuro oriented x3 Sensorium / Orientation: alert Psych mental status grossly normal MDM MDM MDM Narrative Medical decision making narrative: 83-year-old female presenting with dog bite to the left ring finger. I do not believe she needs any imaging. Tetanus was updated today. Wound was cleaned and dressed. She started on Augmentin. She given wound care instructions and return precautions. Impression: 1. Dog bite left ring finger 2. Tetanus immunization Discharge Plan Triage Chief Complaint: Bite ED Provider: Gaurav Parker Dx/Rx/DC Orders Instructions: ED Dog Bite Prescriptions: New amoxicillin-pot clavulanate 875-125 mg tablet 1 tab PO BID Qty: 20 0RF No Action hydrochlorothiazide 25 MG tablet 12.5 mg PO DAILY Patient Comments: blood pressure Trandolapril [Mavik] 4 MG tablet 4 mg PO DAILY Patient Comments: blood pressure/heart atorvastatin 40 MG tablet 40 mg PO QHS clopidogrel 75 MG tablet 75 mg PO DAILY ursodiol 250 mg tablet (more content not included)... Normal [facility] Absolute lymphocyte countOrd ered By: Carlene Arriaga on 12-08-2023 Lymphocytes Auto (Unsp spec) [#/Vol] 2.17 10*3/uL 0.83-4.51 [facility] Automated lymphocyte count a s percentage of total leukocytesOrdered By: Carlene Arriaga on 12-08-2023 Lymphocytes/100 WBC Auto (Unsp spec) 22.1 % 19-41 [facility] Basophil percentageOrdered B y: Carlene Arriaga on 12-08-2023 Basophils/100 WBC (Bld) 0.5 % 0-1 [facility] Bilirubin [Mass/Vol] 0.40 mg/dL 0.20-1.00 [facility] Comment on above: For patients on eltr ombopag therapy, use of Dimension [place] TBIL is not recommended. Chloride [Moles/Vol] 105 mmol/L 98-107 [facility] Eosinophils/100 WBC (Bld) 0.7 % 0-5 [facility] Glucose [Mass/Vol] 118 mg/dL 74-106 [facility] Comment on above: Fasting Glucose resu lt from 100 to 125 mg/dL suggests IMPAIRED HOMEOSTASIS per A.D.A. criteria. Hemoglobin (Bld) [Mass/Vol] 12.3 g/dL 12.0-15.0 [facility] Monocytes/100 WBC (Bld) 8.7 % 0-10 [facility] Neutrophils (Bld) [#/Vol] 6.6 10*3/uL 2.0-7.7 [facility] Neutrophils/100 WBC (Bld) 67.7 % 47-70 [facility] Potassium [Moles/Vol] 4.0 mmol/L 3.5-5.1 [facility] Protein [Mass/Vol] 6.9 g/dL 6.4-8.2 [facility] Sodium [Moles/Vol] 136 mmol/L 136-145 [facility] WBC (Bld) [#/Vol] 9.8 10*3/uL 4.4-11.0 [facility] Determination of erythrocyte mean corpuscular volume (MCV)Ordered By: Carlene Arriaga on 12-08-2023 MCV (RBC) [Entitic vol] 97.9 fL 81-99 [facility] Erythrocyte distribution wid th ratioOrdered By: Topton Bart on 12-08-2023 Erythrocyte distribution width (RBC) [Ratio] 13.1 % 11.6-14.6 [facility] Erythrocyte distribution wid th standard deviationOrdered By: Topton Bart on 12-08-2023 Erythrocyte distribution width (RBC) [Entitic vol] 47.0 fL 35.1-43.9 [facility] Erythrocyte sedimentation ra teOrdered By: Topton Bart on 12-08-2023 ESR (Bld) [Velocity] 16 mm/h 0-30 [facility] Hematocrit Auto (Bld) [Volum e fraction]Ordered By: Carlene Arriaga on 12-08-2023 Hematocrit (Bld) [Volume fraction] 38.2 % 37-47 [facility] Immature granulocytes/100 WB C Auto (Bld)Ordered By: [facility] on 12-08-2023 Immature granulocytes/100 WBC (Bld) 0.300 % 0.0-0.9 [facility] Comment on above: IG% - Immature Granu locytes (promyelocytes, myelocytes and metamyelocytes) > 1% indicates that a LEFT SHIFT is Present. Laboratory - Chemistry and C hemistry - challengeOrdered By: Carlene Arriaga on 12-08-2023 Albumin/Globulin [Mass ratio] 1.0 {ratio} 0.9-2.4 [facility] ALP [Catalytic activity/Vol] 54 U/L 45-117 [facility] ALT [Catalytic activity/Vol] 18 U/L 13-56 [facility] CO2 [Moles/Vol] 26.0 mmol/L 21.0-32.0 [facility] Globulin (S) [Mass/Vol] 3.5 g/dL 2.2-4.2 [facility] Urea nitrogen/Creatinine [Mass ratio] 20.6 mg/mg 10-20 [facility] Laboratory - Hematology and Cell countsOrdered By: Carlene Arriaga on 12-08-2023 MCH (RBC) [Entitic mass] 31.5 pg 27.0-32.0 [facility] MCHC (RBC) [Mass/Vol] 32.2 g/dL 32-36 [facility] Nucleated RBC/100 WBC (Bld) [Ratio] 0 % 0-5 [facility] Platelets (Bld) [#/Vol] 264 10*3/uL 150-450 [facility] No Panel InformationOrdered By: Carlene Arriaga on 12-08-2023 C-Reactive Protein Extended Range < 2.90 mg/L 0.0-3.0 [facility] Comment on above: C-Reactive Protein ( CRP) provides useful information for thediagnosis, therapy and monitoring of inflammatory processesand associated diseases. For the evaluation of Relative Riskfor Cardiovascular Disease, a High Sensitivity CRP (HSCRP)should be ordered. D-Dimer Quantitative (PE/DVT) < 0.27 FEU/ug/m 0.27-0.49 [facility] Comment on above: NORMAL D-Dimer level (<0.50) indicates no DVT or PE. Estimated GFR (MDRD) Amer 75 mL/min >60 [facility] Comment on above: GFR Calc Estimated GFR (MDRD) Non-Af Amer 62 mL/min >60 [facility] Comment on above: Non- GFR Calc Platelet mean volume [place] [facility] (Bld) [Entitic vol]Ordered By: Carlene Arriaga on 12-08-2023 Platelet mean volume (Bld) [Entitic vol] 10.1 fL 6.2-12.0 [facility] RBC Auto (Bld) [#/Vol]Ordere d By: Carlene Arriaga on 12-08-2023 RBC (Bld) [#/Vol] 3.90 10*6/uL 4.2-5.4 [facility] Serum or plasma calcium osmel urement (mass/volume)Ordered By: Carlene Arriaga on 12-08-2023 Calcium [Mass/Vol] 9.1 mg/dL 8.5-10.1 [facility] Serum or plasma creatinine m easurement (mass/volume)Ordered By: Carlene Arriaga on 12-08-2023 Creatinine [Mass/Vol] 0.92 mg/dL 0.55-1.02 [facility] Comment on above: The validity of the calculated GFR & GFRAA in patients over 70 years has not been determined. Clinical correlation is essential. Serum or plasma urea nitroge n measurement (mass/volume)Ordered By: Carlene Arriaga on 12-08-2023 Urea nitrogen [Mass/Vol] 19 mg/dL 7-18 [facility] Thin prep Papanicolaou smear with manual screeningOrdered By: Carlene Arriaga on 12-08-2023 Thin prep Papanicolaou smear with manual screening 3.4 g/dL 3.2-5.0 [facility] Thin prep Papanicolaou smear with manual screening 15 U/L 15-37 [facility] Thin prep Papanicolaou smear with manual screening 5 5-15 [facility] Basophil percentageOrdered B y: Liane Stephenson on 03-24-2023 Bilirubin [Mass/Vol] 0.30 mg/dL 0.20-1.00 [facility] Comment on above: For patients on eltr ombopag therapy, use of Dimension [place] TBIL is not recommended. Chloride [Moles/Vol] 108 mmol/L 98-107 [facility] Glucose [Mass/Vol] 84 mg/dL 74-106 [facility] Potassium [Moles/Vol] 4.0 mmol/L 3.5-5.1 [facility] Protein [Mass/Vol] 7.3 g/dL 6.4-8.2 [facility] Sodium [Moles/Vol] 141 mmol/L 136-145 [facility] Laboratory - Chemistry and C hemistry - challengeOrdered By: Liane Stephenson on 03-24-2023 ALP [Catalytic activity/Vol] 76 U/L 45-117 [facility] ALT [Catalytic activity/Vol] 24 U/L 13-56 [facility] CO2 [Moles/Vol] 27.0 mmol/L 21.0-32.0 [facility] Globulin (S) [Mass/Vol] 3.9 g/dL 2.2-4.2 [facility] Urea nitrogen/Creatinine [Mass ratio] 23.3 mg/mg 10-20 [facility] No Panel InformationOrdered By: Liane Stephenson on 03-24-2023 Estimated GFR (MDRD) Amer 66 mL/min >60 [facility] Comment on above: GFR Calc Estimated GFR (MDRD) Non-Af Amer 55 mL/min >60 [facility] Comment on above: Non- GFR Calc Serum or plasma albumin osmel urement (mass/volume)Ordered By: Liane Stephenson on 03-24-2023 Albumin [Mass/Vol] 3.4 g/dL 3.2-5.0 [facility] Serum or plasma albumin/glob ulin mass ratioOrdered By: Liane Stephenson on 03-24-2023 Albumin/Globulin [Mass ratio] 0.9 {ratio} 0.9-2.4 [facility] Serum or plasma calcium osmel urement (mass/volume)Ordered By: Liane Stephenson on 03-24-2023 Calcium [Mass/Vol] 9.4 mg/dL 8.5-10.1 [facility] Serum or plasma creatinine m easurement (mass/volume)Ordered By: Liane Stephenson on 03-24-2023 Creatinine [Mass/Vol] 1.03 mg/dL 0.55-1.02 [facility] Comment on above: The validity of the calculated GFR & GFRAA in patients over 70 years has not been determined. Clinical correlation is essential. Serum or plasma urea nitroge n measurement (mass/volume)Ordered By: Liane Stephenson on 03-24-2023 Urea nitrogen [Mass/Vol] 24 mg/dL 7-18 [facility] Serum or plasma uric acid me asurement (mass/volume)Ordered By: Liane Stephenson on 03-24-2023 Urate [Mass/Vol] 5.8 mg/dL 2.6-6.0 [facility] Comment on above: The drugs N-Acetylcy steine and Metamizole may falsely depress this assay. Thin prep Papanicolaou smear with manual screeningOrdered By: Liane Stephenson on 03-24-2023 Thin prep Papanicolaou smear with manual screening 24 U/L 15-37 [facility] Thin prep Papanicolaou smear with manual screening 6 5-15 [facility] Basophil percentageOrdered B y: Dr. Stephenson on 02-08-2023 Bilirubin [Mass/Vol] 0.30 mg/dL 0.20-1.00 [facility] Comment on above: For patients on eltr ombopag therapy, use of Dim[place] TBIL is not recommended. Chloride [Moles/Vol] 109 mmol/L 98-107 [facility] Glucose [Mass/Vol] 93 mg/dL 74-106 [facility] Potassium [Moles/Vol] 4.4 mmol/L 3.5-5.1 [facility] Protein [Mass/Vol] 7.8 g/dL 6.4-8.2 [facility] Sodium [Moles/Vol] 141 mmol/L 136-145 [facility] Erythrocyte sedimentation ra teOrdered By: Dr. Stephenson on 02-08-2023 ESR (Bld) [Velocity] 15 mm/h 0-30 [facility] Laboratory - Chemistry and C hemistry - challengeOrdered By: Dr. Stephenson on 02-08-2023 ALP [Catalytic activity/Vol] 49 U/L 45-117 [facility] ALT [Catalytic activity/Vol] 21 U/L 13-56 [facility] CO2 [Moles/Vol] 26.0 mmol/L 21.0-32.0 [facility] Globulin (S) [Mass/Vol] 4.2 g/dL 2.2-4.2 [facility] Urea nitrogen/Creatinine [Mass ratio] 17.6 mg/mg 10-20 [facility] No Panel InformationOrdered By: Dr. Stephenson on 02-08-2023 Estimated GFR (MDRD) Amer 67 mL/min >60 [facility] Comment on above: GFR Calc Estimated GFR (MDRD) Non-Af Amer 55 mL/min >60 [facility] Comment on above: Non- GFR Calc Serum or plasma C reactive p rotein measurement (mass/volume)Ordered By: Dr. Stephenson on 02-08-2023 CRP [Mass/Vol] mg/L 0.0-3.0 [facility] Comment on above: C-Reactive Protein ( CRP) provides useful information for thediagnosis, therapy and monitoring of inflammatory processesand associated diseases. For the evaluation of Relative Riskfor Cardiovascular Disease, a High Sensitivity CRP (HSCRP)should be ordered. Serum or plasma albumin osmel urement (mass/volume)Ordered By: Dr. Stephenson on 02-08-2023 Albumin [Mass/Vol] 3.6 g/dL 3.2-5.0 [facility] Serum or plasma albumin/glob ulin mass ratioOrdered By: Dr. Stephenson on 02-08-2023 Albumin/Globulin [Mass ratio] 0.9 {ratio} 0.9-2.4 [facility] Serum or plasma calcium osmel urement (mass/volume)Ordered By: Dr. Stephenson on 02-08-2023 Calcium [Mass/Vol] 9.5 mg/dL 8.5-10.1 [facility] Serum or plasma creatinine m easurement (mass/volume)Ordered By: Dr. Stephenson on 02-08-2023 Creatinine [Mass/Vol] 1.02 mg/dL 0.55-1.02 [facility] Comment on above: The validity of the calculated GFR & GFRAA in patients over 70 years has not been determined. Clinical correlation is essential. Serum or plasma urea nitroge n measurement (mass/volume)Ordered By: Dr. Stephenson on 02-08-2023 Urea nitrogen [Mass/Vol] 18 mg/dL 7-18 [facility] Serum or plasma uric acid me asurement (mass/volume)Ordered By: Dr. Stephenson on 02-08-2023 Urate [Mass/Vol] 6.6 mg/dL 2.6-6.0 [facility] Comment on above: The drugs N-Acetylcy steine and Metamizole may falsely depress this assay. Thin prep Papanicolaou smear with manual screeningOrdered By: Dr. Stephenson on 02-08-2023 Thin prep Papanicolaou smear with manual screening 23 U/L 15-37 [facility] Thin prep Papanicolaou smear with manual screening 6 5-15 [facility] Absolute lymphocyte countOrd ered By: Dr. Pugh on 01-01-2023 Lymphocytes Auto (Unsp spec) [#/Vol] 3.29 10*3/uL 0.83-4.51 [facility] Basophil percentageOrdered B y: Dr. Pugh on 01-01-2023 Basophils/100 WBC (Bld) 0.7 % 0-1 [facility] Eosinophils/100 WBC (Bld) 2.7 % 0-5 [facility] Neutrophils (Bld) [#/Vol] 4.6 10*3/uL 2.0-7.7 [facility] Neutrophils/100 WBC (Bld) 50.4 % 47-70 [facility] WBC (Bld) [#/Vol] 9.0 10*3/uL 4.4-11.0 [facility] Blood erythrocytes count (nu mber/volume)Ordered By: Dr. Pugh on 01-01-2023 RBC (Bld) [#/Vol] 4.59 10*6/uL 4.2-5.4 [facility] Blood hemoglobin measurement (mass/volume)Ordered By: Dr. Pugh on 01-01-2023 Hemoglobin (Bld) [Mass/Vol] 13.9 g/dL 12.0-15.0 [facility] Blood lymphocytes/100 leukoc ytesOrdered By: Dr. Pugh on 01-01-2023 Lymphocytes/100 WBC (Bld) 36.5 % 19-41 [facility] Blood monocytes/100 leukocyt esOrdered By: Dr. Pugh on 01-01-2023 Monocytes/100 WBC (Bld) 9.6 % 0-10 [facility] Blood platelet mean volumeOr dered By: Dr. Pugh on 01-01-2023 Platelet mean volume (Bld) [Entitic vol] 9.6 fL 6.2-12.0 [facility] Determination of erythrocyte mean corpuscular volume (MCV)Ordered By: Dr. Pugh on 01-01-2023 MCV (RBC) [Entitic vol] 92.8 fL 81-99 [facility] Hematocrit Auto (Bld) [Volum e fraction]Ordered By: Dr. Pugh on 01-01-2023 Hematocrit (Bld) [Volume fraction] 42.6 % 37-47 [facility] Laboratory - Hematology and Cell countsOrdered By: Dr. Pugh on 01-01-2023 Erythrocyte distribution width (RBC) [Entitic vol] 44.2 fL 35.1-43.9 [facility] Erythrocyte distribution width (RBC) [Ratio] 12.9 % 11.6-14.6 [facility] Immature granulocytes/100 WBC (Bld) 0.100 % 0.0-0.9 [facility] Comment on above: IG% - Immature Granu locytes (promyelocytes, myelocytes and metamyelocytes) > 1% indicates that a LEFT SHIFT is Present. MCH (RBC) [Entitic mass] 30.3 pg 27.0-32.0 [facility] Nucleated RBC/100 WBC (Bld) [Ratio] 0 % 0-5 [facility] MCHC Auto (RBC) [Mass/Vol]Or dered By: Dr. Pugh on 01-01-2023 MCHC (RBC) [Mass/Vol] 32.6 g/dL 32-36 [facility] No Panel InformationOrdered By: Dr. Pugh on 01-01-2023 D-Dimer Quantitative (PE/DVT) 0.36 FEU/ug/m 0.27-0.49 [facility] Comment on above: NORMAL D-Dimer level (<0.50) indicates no DVT or PE. Platelets bldOrdered By: Dr. Pugh on 01-01-2023 Platelets (Bld) [#/Vol] 258 10*3/uL 150-450 [facility] Basophil percentageOrdered B y: Dr. Stephenson on 10-14-2022 Bilirubin [Mass/Vol] 0.40 mg/dL 0.20-1.00 [facility] Comment on above: For patients on eltr ombopag therapy, use of [place] TBIL is not recommended. Protein [Mass/Vol] 7.3 g/dL 6.4-8.2 [facility] Direct bilirubinOrdered By: Dr. Stephenson on 10-14-2022 Bilirubin.direct [Mass/Vol] 0.11 mg/dL 0.00-0.30 [facility] Laboratory - Chemistry and C hemistry - challengeOrdered By: Dr. Stephenson on 10-14-2022 ALP [Catalytic activity/Vol] 86 U/L 45-117 [facility] ALT [Catalytic activity/Vol] 174 U/L 13-56 [facility] Globulin (S) [Mass/Vol] 3.9 g/dL 2.2-4.2 [facility] Serum or plasma albumin osmel urement (mass/volume)Ordered By: Dr. Stephenson on 10-14-2022 Albumin [Mass/Vol] 3.4 g/dL 3.2-5.0 [facility] Thin prep Papanicolaou smear with manual screeningOrdered By: Dr. Stephenson on 10-14-2022 Thin prep Papanicolaou smear with manual screening 32 U/L [facility] Basophil percentageOrdered B y: Dr. Morrow on 10-09-2022 Bilirubin [Mass/Vol] 0.50 mg/dL 0.20-1.00 [facility] Comment on above: For patients on eltr ombopag therapy, use of Dimension [place] TBIL is not recommended. Protein [Mass/Vol] 5.5 g/dL 6.4-8.2 [facility] Direct bilirubinOrdered By: Dr. Morrow on 10-09-2022 Bilirubin.direct [Mass/Vol] 0.16 mg/dL 0.00-0.30 [facility] Laboratory - Chemistry and C hemistry - challengeOrdered By: Dr. Morrow on 10-09-2022 ALP [Catalytic activity/Vol] 91 U/L 45-117 [facility] ALT [Catalytic activity/Vol] 518 U/L 13-56 [facility] Globulin (S) [Mass/Vol] 3.1 g/dL 2.2-4.2 [facility] Serum or plasma albumin osmel urement (mass/volume)Ordered By: Dr. Morrow on 10-09-2022 Albumin [Mass/Vol] 2.4 g/dL 3.2-5.0 [facility] Thin prep Papanicolaou smear with manual screeningOrdered By: Dr. Morrow on 10-09-2022 Thin prep Papanicolaou smear with manual screening 185 U/L [facility] Absolute lymphocyte countOrd ered By: Dr. Parsons on 10-08-2022 Lymphocytes Auto (Unsp spec) [#/Vol] 2.75 10*3/uL 0.83-4.51 [facility] Basophil percentageOrdered B y: Dr. Parsons on 10-08-2022 Basophils/100 WBC (Bld) 0.3 % 0-1 [facility] Chloride [Moles/Vol] 109 mmol/L 98-107 [facility] Cholesterol [Mass/Vol] 135 mg/dL <200 [facility] Comment on above: <200 mg/dL Desirable 200-240 mg/dL Borderline >240 mg/dL High Risk Eosinophils/100 WBC (Bld) 2.6 % 0-5 [facility] Glucose [Mass/Vol] 83 mg/dL 74-106 [facility] Neutrophils (Bld) [#/Vol] 7.0 10*3/uL 2.0-7.7 [facility] Neutrophils/100 WBC (Bld) 64.6 % 47-70 [facility] Potassium [Moles/Vol] 3.7 mmol/L 3.5-5.1 [facility] Sodium [Moles/Vol] 142 mmol/L 136-145 [facility] Triglyceride [Mass/Vol] 131 mg/dL <199 [facility] Comment on above: The drugs N-Acetylcy steine and Metamizole may falsely depress this assay.Serum Triglycerides Reference Interval Normal <150 mg/dL Borderline high 150 - 199 mg/dL High 200 - 499 mg/dL Very High > or = 500 mg/dL WBC (Bld) [#/Vol] 10.9 10*3/uL 4.4-11.0 [facility] Blood erythrocytes count (nu mber/volume)Ordered By: Dr. Parsons on 10-08-2022 RBC (Bld) [#/Vol] 4.25 10*6/uL 4.2-5.4 [facility] Blood hemoglobin measurement (mass/volume)Ordered By: Dr. Parsons on 10-08-2022 Hemoglobin (Bld) [Mass/Vol] 12.8 g/dL 12.0-15.0 [facility] Blood lymphocytes/100 leukoc ytesOrdered By: Dr. Parsons on 10-08-2022 Lymphocytes/100 WBC (Bld) 25.3 % 19-41 [facility] Blood monocytes/100 leukocyt esOrdered By: Dr. Parsons on 10-08-2022 Monocytes/100 WBC (Bld) 6.7 % 0-10 [facility] Blood platelet mean volumeOr dered By: Dr. Parsons on 10-08-2022 Platelet mean volume (Bld) [Entitic vol] 9.7 fL 6.2-12.0 [facility] Determination of erythrocyte mean corpuscular volume (MCV)Ordered By: Dr. Parsons on 10-08-2022 MCV (RBC) [Entitic vol] 93.6 fL 81-99 [facility] Hematocrit Auto (Bld) [Volum e fraction]Ordered By: Dr. Parsons on 10-08-2022 Hematocrit (Bld) [Volume fraction] 39.8 % 37-47 [facility] Laboratory - Chemistry and C hemistry - challengeOrdered By: Dr. Parsons on 10-08-2022 CO2 [Moles/Vol] 26.0 mmol/L 21.0-32.0 [facility] Lipase [Catalytic activity/Vol] 190 U/L 73-393 [facility] Urea nitrogen/Creatinine [Mass ratio] 19.5 mg/mg 10-20 [facility] Laboratory - Hematology and Cell countsOrdered By: Dr. Parsons on 10-08-2022 Erythrocyte distribution width (RBC) [Entitic vol] 45.7 fL 35.1-43.9 [facility] Erythrocyte distribution width (RBC) [Ratio] 13.4 % 11.6-14.6 [facility] Immature granulocytes/100 WBC (Bld) 0.500 % 0.0-0.9 [facility] Comment on above: IG% - Immature Granu locytes (promyelocytes, myelocytes and metamyelocytes) > 1% indicates that a LEFT SHIFT is Present. MCH (RBC) [Entitic mass] 30.1 pg 27.0-32.0 [facility] Nucleated RBC/100 WBC (Bld) [Ratio] 0.2 % 0-5 [facility] MCHC Auto (RBC) [Mass/Vol]Or dered By: Dr. Parsons on 10-08-2022 MCHC (RBC) [Mass/Vol] 32.2 g/dL 32-36 [facility] No Panel InformationOrdered By: Dr. Parsons on 10-08-2022 Estimated Creatinine Clearance Calc 54.09 ml/min [facility] Estimated GFR (MDRD) Amer 86 mL/min >60 [facility] Comment on above: GFR Calc Estimated GFR (MDRD) Non-Af Amer 71 mL/min >60 [facility] Comment on above: Non- GFR Calc Platelets bldOrdered By: Dr. Parsons on 10-08-2022 Platelets (Bld) [#/Vol] 319 10*3/uL 150-450 [facility] Serum or plasma albumin/glob ulin mass ratioOrdered By: Dr. Parsons on 10-08-2022 Albumin/Globulin [Mass ratio] 0.8 {ratio} 0.9-2.4 [facility] Serum or plasma calcium osmel urement (mass/volume)Ordered By: Dr. Parsons on 10-08-2022 Calcium [Mass/Vol] 7.8 mg/dL 8.5-10.1 [facility] Serum or plasma cholesterol in HDL measurement (mass/volume)Ordered By: Dr. Parsons on 10-08-2022 Cholesterol in HDL [Mass/Vol] 52 mg/dL >40 [facility] Comment on above: The drugs N-Acetylcy steine and Metamizole may falsely depress this assay. Reference Range HDL <40 mg/dL Low HDL Cholesterol HDL >or= 60 mg/dL High HDL Cholesterol Serum or plasma cholesterol in VLDL measurement (mass/volume)Ordered By: Dr. Parsons on 10-08-2022 Cholesterol in VLDL [Mass/Vol] 26 mg/dL 5-40 [facility] Serum or plasma creatinine m easurement (mass/volume)Ordered By: Dr. Parsons on 10-08-2022 Creatinine [Mass/Vol] 0.82 mg/dL 0.55-1.02 [facility] Comment on above: The validity of the calculated GFR & GFRAA in patients over 70 years has not been determined. Clinical correlation is essential. Serum or plasma low density lipoprotein (LDL) cholesterol measurement (mass/volume)Ordered By: Dr. Parsons on 10-08-2022 Cholesterol in LDL [Mass/Vol] 57 mg/dL 0-130 [facility] Serum or plasma urea nitroge n measurement (mass/volume)Ordered By: Dr. Parsons on 10-08-2022 Urea nitrogen [Mass/Vol] 16 mg/dL 7-18 [facility] Thin prep Papanicolaou smear with manual screeningOrdered By: Dr. Parsons on 10-08-2022 Thin prep Papanicolaou smear with manual screening 7 5-15 [facility] Absolute lymphocyte counton 10-07-2022 Lymphocytes Auto (Unsp spec) [#/Vol] 1.76 10*3/uL 0.83-4.51 [facility] Work Phone: Acetaminophen level (mass/vo lume)Ordered By: Dr. Maier on 10-07-2022 Acetaminophen (Unsp spec) [Mass/Vol] < 2.0 ug/mL 10.0-30.0 [facility] Basophil percentageon 2021 Basophils/100 WBC (Bld) 0.3 % 0-1 [facility] Work Phone: Bilirubin [Mass/Vol] 1.10 mg/dL 0.20-1.00 [facility] Work Phone: Comment on above: For patients on eltr ombopag therapy, use of Dimension [place] TBIL is not recommended. Chloride [Moles/Vol] 103 mmol/L 98-107 [facility] Work Phone: Eosinophils/100 WBC (Bld) 2.6 % 0-5 [facility] Work Phone: [phone] Glucose [Mass/Vol] 120 mg/dL 74-106 [facility] Work Phone: [phone] Comment on above: Fasting Glucose resu lt from 100 to 125 mg/dL suggests IMPAIRED HOMEOSTASIS per A.D.A. criteria. Neutrophils (Bld) [#/Vol] 7.4 10*3/uL 2.0-7.7 [facility] Work Phone: Neutrophils/100 WBC (Bld) 72.0 % 47-70 [facility] Work Phone: Potassium [Moles/Vol] 3.7 mmol/L 3.5-5.1 [facility] Work Phone: Protein [Mass/Vol] 7.2 g/dL 6.4-8.2 [facility] Work Phone: Sodium [Moles/Vol] 140 mmol/L 136-145 [facility] Work Phone: WBC (Bld) [#/Vol] 10.3 10*3/uL 4.4-11.0 [facility] Work Phone: Blood erythrocytes count (nu mber/volume)on 10-07-2022 RBC (Bld) [#/Vol] 4.69 10*6/uL 4.2-5.4 [facility] Work Phone: Blood hemoglobin measurement (mass/volume)on 10-07-2022 Hemoglobin (Bld) [Mass/Vol] 14.1 g/dL 12.0-15.0 [facility] Work Phone: Blood lymphocytes/100 leukoc yteson 10-07-2022 Lymphocytes/100 WBC (Bld) 17.0 % 19-41 [facility] Work Phone: Blood monocytes/100 leukocyt eson 10-07-2022 Monocytes/100 WBC (Bld) 7.6 % 0-10 [facility] Work Phone: Blood platelet mean volumeon 10-07-2022 Platelet mean volume (Bld) [Entitic vol] 9.5 fL 6.2-12.0 [facility] Work Phone: Determination of erythrocyte mean corpuscular volume (MCV)on 10-07-2022 MCV (RBC) [Entitic vol] 92.1 fL 81-99 [facility] Work Phone: Hematocrit Auto (Bld) [Volum e fraction]on 10-07-2022 Hematocrit (Bld) [Volume fraction] 43.2 % 37-47 [facility] Work Phone: INR in Blood by Coagulation assayOrdered By: Dr. Parsons on 10-07-2022 INR Coag (Bld) [Relative time] 1.0 {INR} [facility] Laboratory - Chemistry and C hemistry - challengeon 10-07-2022 ALP [Catalytic activity/Vol] 155 U/L 45-117 [facility] Work Phone: ALT [Catalytic activity/Vol] 1430 U/L 13-56 [facility] Work Phone: CO2 [Moles/Vol] 31.0 mmol/L 21.0-32.0 [facility] Work Phone: Globulin (S) [Mass/Vol] 3.9 g/dL 2.2-4.2 [facility] Work Phone: Lipase [Catalytic activity/Vol] 580 U/L 73-393 [facility] Work Phone: Urea nitrogen/Creatinine [Mass ratio] 19.8 mg/mg 10-20 [facility] Work Phone: Laboratory - CoagulationOrde red By: Dr. Parsons on 10-07-2022 aPTT Coag (Bld) [Time] 24.3 s 24.1-36.2 [facility] PT Coag (PPP) [Time] 12.6 s 11.7-14.9 [facility] Laboratory - Hematology and Cell countson 10-07-2022 Erythrocyte distribution width (RBC) [Entitic vol] 45.1 fL 35.1-43.9 [facility] Work Phone: Erythrocyte distribution width (RBC) [Ratio] 13.4 % 11.6-14.6 [facility] Work Phone: Immature granulocytes/100 WBC (Bld) 0.500 % 0.0-0.9 [facility] Work Phone: Comment on above: IG% - Immature Granu locytes (promyelocytes, myelocytes and metamyelocytes) > 1% indicates that a LEFT SHIFT is Present. MCH (RBC) [Entitic mass] 30.1 pg 27.0-32.0 [facility] Work Phone: Nucleated RBC/100 WBC (Bld) [Ratio] 0 % 0-5 [facility] Work Phone: Laboratory - Microbiology an d Antimicrobial susceptibilityOrdered By: Dr. Parsons on 10-07-2022 SARS-CoV-2 (COVID-19) RNA ARLEN+probe Ql (Unsp spec) Not detected Not Detect [facility] Comment on above: Normal Reference Ran ge: Not DetectedMethod:(RT-PCR) real-time reverse transcriptase PCRLuJobyourlife Instrument*The Food and Drug Administration (FDA) has issued an Emergency Use Authorization (EAU) for the Novel SARS-CoV-2 Assay for the rapid detection of the virus that causes COVID-19. This test has been validated, but the [facility] independent review of this validation is pending.*Negative results do not preclude infection and should not be used as the sole basis for treatment or patient management. Optimum specimen types and timing for peak viral levels during infections caused by SARS-CoV-2 have not been determined. Collection of multiple specimens from the same patient may be necessary to detect the virus. The possibility of a false negative result should be considered if the patient has clinical presentation or has had recent exposure. Respiratory pathogens DNA and RNA 12b panel ARLEN+probe (Unsp spec) [facility] [[facility]/Vol][facility] 10-07-2022 MCHC (RBC) [Mass/Vol] 32.6 g/dL [facility] Work Phone: No Panel InformationOrdered By: Dr. Maier on 10-07-2022 Hepatitis A IgM Antibody Negative Negative [facility] Hepatitis B Core IgM Antibody Negative Negative [facility] Hepatitis C Antibody (EIA) 0.1 s/co ratio 0.0-0.9 [facility] Hepatitis C Antibody Comment Comment . [facility] Comment on above: NegativeNot infected with HCV, unless recent infection issuspected or other evidence exists to indicate HCVinfection.Performed at: [facility] [id number] Director: Isaac Jiang PhD, Phone: [phone] Troponin I High Sensitivity 6 pg/mL 3.0-54.0 [facility] Comment on above: Please Note: New Eun t Units and Gender Specific Reference Ranges. For more information see Policy Stat Procedure [place] High Sensitivity Troponin (TNIH) and attachments. No Panel Informationon 10-07 Estimated Creatinine Clearance Calc 48.95 ml/min [facility] Work Phone: Estimated GFR (MDRD) Amer 77 mL/min >60 [facility] Work Phone: Comment on above: GFR Calc Estimated GFR (MDRD) Non-Af Amer 63 mL/min >60 [facility] Work Phone: Comment on above: Non- GFR Calc Platelets bldon 10-07-2022 Platelets (Bld) [#/Vol] 351 10*3/uL 150-450 [facility] Work Phone: Serum or plasma albumin osmel urement (mass/volume)on 10-07-2022 Albumin [Mass/Vol] 3.3 g/dL 3.2-5.0 [facility] Work Phone: Serum or plasma albumin/glob ulin mass ratioon 10-07-2022 Albumin/Globulin [Mass ratio] 0.8 {ratio} 0.9-2.4 [facility] Work Phone: Serum or plasma calcium osmel urement (mass/volume)on 10-07-2022 Calcium [Mass/Vol] 9.3 mg/dL 8.5-10.1 [facility] Work Phone: Serum or plasma creatinine m easurement (mass/volume)on 10-07-2022 Creatinine [Mass/Vol] 0.91 mg/dL 0.55-1.02 [facility] Work Phone: Comment on above: The validity of the calculated GFR & GFRAA in patients over 70 years has not been determined. Clinical correlation is essential. Serum or plasma hepatitis B virus surface antigen detection by immunoassayOrdered By: Dr. Maier on 10-07-2022 HBV surface Ag IA Ql Negative Negative [facility] Serum or plasma urea nitroge n measurement (mass/volume)on 10-07-2022 Urea nitrogen [Mass/Vol] 18 mg/dL 7-18 [facility] Work Phone: Thin prep Papanicolaou smear with manual screeningon 10-07-2022 Thin prep Papanicolaou smear with manual screening 1019 U/L 15-37 [facility] Work Phone: Thin prep Papanicolaou smear with manual screening 6 5-15 [facility] Work Phone: Absolute lymphocyte counton 04-16-2022 Lymphocytes Auto (Unsp spec) [#/Vol] 2.90 10*3/uL 0.83-4.51 [facility] Work Phone: Basophil percentageon 2021 Basophils/100 WBC (Bld) 0.7 % 0-1 [facility] Work Phone: [phone] Eosinophils/100 WBC (Bld) 1.1 % 0-5 [facility] Work Phone: [phone] Neutrophils (Bld) [#/Vol] 5.7 10*3/uL 2.0-7.7 [facility] Work Phone: [phone] Neutrophils/100 WBC (Bld) 59.6 % 47-70 [facility] Work Phone: [phone] WBC (Bld) [#/Vol] 9.6 10*3/uL 4.4-11.0 [facility] Work Phone: Blood erythrocytes count (nu mber/volume)on 04-16-2022 RBC (Bld) [#/Vol] 4.29 10*6/uL 4.2-5.4 [facility] Work [facility]: Blood hemoglobin measurement (mass/volume)on 04-16-2022 Hemoglobin (Bld) [Mass/Vol] 13.3 g/dL 12.0-15.0 [facility] Work Phone: Blood lymphocytes/100 leukoc yteson 04-16-2022 Lymphocytes/100 WBC (Bld) 30.1 % 19-41 [facility] Work Phone: Blood monocytes/100 leukocyt eson 04-16-2022 Monocytes/100 WBC (Bld) 8.1 % 0-10 [facility] Work Phone: Blood platelet mean volumeon 04-16-2022 Platelet mean volume (Bld) [Entitic vol] 9.8 fL 6.2-12.0 [facility] Work Phone: Determination of erythrocyte mean corpuscular volume (MCV)on 04-16-2022 MCV (RBC) [Entitic vol] 94.6 fL 81-99 [facility] Work Phone: Hematocrit Auto (Bld) [Volum e fraction]on 04-16-2022 Hematocrit (Bld) [Volume fraction] 40.6 % 37-47 [facility] Work Phone: Iron measurement (mass/mass) on 04-16-2022 Iron (Unsp spec) [Mass/Mass] 89 ug/dL 50-170 [facility] Work Phone: Laboratory - Hematology and Cell countson 04-16-2022 Erythrocyte distribution width (RBC) [Entitic vol] 44.2 fL 35.1-43.9 [facility] Work Phone: Erythrocyte distribution width (RBC) [Ratio] 12.7 % 11.6-14.6 [facility] Work Phone: Immature granulocytes/100 WBC (Bld) 0.400 % 0.0-0.9 [facility] Work Phone: Comment on above: IG% - Immature Granu locytes (promyelocytes, myelocytes and metamyelocytes) > 1% indicates that a LEFT SHIFT is Present. MCH (RBC) [Entitic mass] 31.0 pg 27.0-32.0 [facility] Work Phone: Nucleated RBC/100 WBC (Bld) [Ratio] 0 % 0-5 [facility] Work Phone: MCHC Auto (RBC) [Mass/Vol]on 04-16-2022 MCHC (RBC) [Mass/Vol] 32.8 g/dL 32-36 [facility] Work Phone: Platelets bldon 04-16-2022 Platelets (Bld) [#/Vol] 331 10*3/uL 150-450 [facility] Work Phone: CNOVon 07-01-2021 CNOV Office Visit (GASTWS ) MELYSSA MATA ([id number]) 1940 F Date Time Provider Department 07/01/21 8:30 AM IRAIDA SIMMONS During your visit today, we recorded the following information about you: Pulse Blood pressure Weight 60/minute 120/62 64.9 kg Iraida Simmons APRN.CNP 07/01/2021 9:00 AM Signed DEPARTMENT OF GASTROENTEROLOGY - FOLLOW UP VISIT HISTORY OF PRESENT ILLNESS Melyssa Mata is a 80 year old female [...] 3. Rectum, polypectomy (C) - Hyperplastic polyp. [facility]/ 06/08/2016 COMMENT 2. (B). Additional histologic sections [...] SURGERY HX - COLONOSCOP W/ OR W/O [facility] SPEC 2002 Colonoscopy WNL - COLONOSCOP W/ OR W/O [facility] SPEC 11/23/05 Colonoscopy - COLONOSCOP W/ OR W/O [facility] SPEC 02/03/11 - COLONOSCOP W/ OR W/O [facility] SPEC 06/05/16 Colonoscopy - DANDC, DIAG [...] distress IMPRESSION (Z86.010) Personal history of colonic polyp (more content not included)... Normal [facility] CNPNon 06-03-2021 CNPN Telephone (ZACK) MELYSSA MATA ([id number]) 1940 F Date Time Provider Department 06/03/21 IRAIDA SIMMONS During your visit today, we recorded the following information about you: Kenya Paredes RN 06/03/2021 9:21 AM Signed Patient calls and states that she had colonoscopy done on 05/29/2021. Patient states that she has not had a bowel movement since last . Patient states that she is starting to feel uncomfortable even with urinating. Patient has taken Miralax and other things to try and help her have a bowel movement. Patient asking provider to advise. Please review and advise, SONIA Cosme RN 06/03/2021 10:24 AM Signed Patient was advised to call PCP regarding the message below. SONIA Cosme APRN.ALARM MECHANIC 06/08/2021 9:38 AM Signed Can you please follow up with patient and see if her constipation has resolved since the colonoscopy. What is she taking? If still constipated, can take OTC magnesium citrate and take half the bottle, if no BM within one hour then continue to take the other half of magnesium citrate. Thanks Iraidajosephine Simmons APRN.CNP Jeimy Benito VARMA 06/12/2021 1:44 PM Signed LEFT MESSAGE FOR PATIENT TO CALL OFFICE with an update. Kenya Paredes RN 06/12/2021 2:02 PM Signed Patient calls and states that she is still having problems with constipation. Patient is taking 2 Tablespoons of Benefiber and ex lax. Advised patient of provider recommendations of OTC Magnesium Citrate. Patient states that she will try that. SONIA Cosme APRN.CNP 06/23/2021 3:25 PM Signed Call patient verified . Patient reports she is doing much better. Having a bowel movement daily or every other day. She is taking fiber daily 2 TBPs Iraida Simmons APRN.CNP Allergies As of Date: 06/03/2021 Noted Allergy Reaction ASA (SALICYLATES) 10/12/2005 5 - Intolerance Comments: can't take due to Macular Degeneration LODINE (ETODOLAC) 10/12/2005 5 - Intolerance Comments: not effective Date Reviewed: 05/29/2021 Reviewed by: Leonor Win RN - Fully Assessed Reason for Visit: Patient Update [1234] Prescriptions as of 06/23/2021 - polyethylene glycol 3350 (MIRALAX, GLYCOLAX) 17 gram/dose powder Use as directed for Miralax / Gatorade Bowel Prep Kit - Bisacodyl (DULCOLAX) 5 mg tab Use as directed for Miralax / Gatorade Bowel Prep Kit - diclofenac, EC, 75 mg ORAL EC tablet Take one(1) tablet two(2) times daily. - HYDROCHLOROTHIAZIDE 25 MG TAB Take one(1) tablet daily. - LIPITOR 10 MG TAB Take one(1) tablet daily. - MAVIK 4 MG TAB Take one(1) tablet daily. - VIACTIV 500 MG-100 UNIT-40 MCG CHEWABLE TAB two (2) daily Problem List As Of Date 06/03/2021 Noted Resolved BENIGN HYPERTENSION [I10] PURE HYPERCHOLESTEROLEM [E78.00] LUMBAGO [M54.5] IMPAIRED FASTING GLUCOSE [R73.01] OBESITY NOS [E66.9] GENERAL OSTEOARTHROSIS [M15.9] TENOSYNOV HAND/WRIST NEC [M65.849, M65.839] DIABETES MELLITUS TYPE II-UNCOMPL [E11.9] DIVERTICULOSIS OF COLON W/O BLEED [K57.30] PERS HX COLONIC POLYPS [Z86.010] PERS HX SKIN MALIGNANCY NEC [Z85.828] 05/16/2007 Screening for colon cancer [Z12.11] 06/05/2016 06/05/2016 Adenomatous polyp of colon [D12.6] 05/29/2021 05/29/2021 Encounter Status:Closed by IRAIDA SIMMONS on 06/23/21 Normal [facility] HISTORY PHYSICALon HISTORY PHYSICAL HNO ID: [id number] Author: Lucas Buchanan MD Service: General Surgery Author Type: Physician Type: HANDP Filed: 05/29/2021 7:53 AM Note Text: UPDATED HISTORY AND PHYSICAL EXAMINATION SERVICE DATE: 05/29/2021 SERVICE TIME: 7:53 AM PHYSICAL EXAM MUST BE COMPLETED ON ADMISSION The History and Physical (completed in the past 30 days) has been reviewed and the patient has been examined. The contents accurately reflect the patient's condition with the following additions or revisions since the HANDP was completed. Examination indicates no changes. This HANDP can be found in the Electronic Medical Record dated 04/24/21. SIGNATURE: Lucas Buchanan III, MD PATIENT NAME: Melyssa Mata DATE: May 29, 2021 TIME: 7:53 AM [facility] NURSING PROGon 05-29-2021 NURSING PROG HNO ID: [id number] Author: Gracy Aguilar RN Service: ? Author Type: Registered Nurse Type: Nursing Progress Note Filed: 05/29/2021 8:27 AM Note Text: Patient arrived to PACU, on left side, abdomen soft. Patient resting comfortably with no pain. Call light within reach. Gracy Aguilar RN [facility] NURSING PROG HNO ID: [id number] Author: Aleta Ely RN Service: ? Author Type: Registered Nurse Type: Nursing Progress Note Filed: 05/29/2021 7:58 AM Note Text: [facility] PRE-OP NURSING HAND OFF NOTE SBAR Hand off given to Leonor Win RN. Hand off was communicated verbally and at the patient's bedside and all questions were answered. Aleta Ely RN [facility] CNOVon 04-24-2021 CNOV Office Visit (GASTWS ) MELYSSA MATA ([id number]) 1940 F Date Time Provider Department 04/24/21 2:00 PM IRAIDA SIMMONS During your visit today, we recorded the following information about you: Pulse Blood pressure Weight Height 68/minute 108/60 65.3 kg 1.49 m Iraida Simmons APRN.CNP 04/25/2021 9:06 AM Signed DEPARTMENT OF GASTROENTEROLOGY - NEW PATIENT/CONSULT REASON FOR VISIT Melyssa Mata is a 80 year old female who is scheduled at the request of Francois Black for No chief complaint on file.. My final recommendations will be communicated back to the requesting physician by the way of the shared medical record, fax, or via US Mail HISTORY OF PRESENT ILLNESS Melyssa Mata is a 80 year old female who presents today for an evaluation of colonoscopy 5 year surveillance. Patient has a personal history of personal history of colon polyps. The patient denies change in bowel habits,denies black stool, rectal bleeding and abdominal pain. Having a bowel movement depends on what she eats - sometimes will have constipation only will have diarrhea if she eats something that will cause diarrhea - Does not drink or eat - diary products Admits does not drink enough PRIOR TEST RESULTS Imaging/Procedures: The patient was seen by Dr.Brian Raphael for colonoscopy for personal history of colon polyps on 06/05/2016. The procedure report has been reviewed and findings as follows: Impression: ? - Diverticulosis in the sigmoid colon and in the ? descending colon. ? - Five 5 mm polyps in the rectum, in the ascending ? colon and in the cecum. Resected and retrieved. Pathology: 1. Colon, cecum, polypectomy (A) - Tubular adenoma. - Separate fragments of colonic mucosa with features of sessile serrated polyp, negative for cytologic dysplasia. ?2. Colon, ascending, polypectomy (B) ?Polypoid colonic mucosa with no specific diagnostic alteration. - see comment. ?3. Rectum, polypectomy (C) - Hyperplastic polyp. 2. (B). Additional histologic sections were examined. There is no evidence of dysplasia. REVIEW OF SYSTEMS: GENERAL: No weight loss, malaise or fevers HEENT: Negative for frequent or significant headaches, No changes in hearing or vision, no nose bleeds or other nasal problems RESPIRATORY: Negative for cough, hemoptysis, wheezing, COPD, dyspnea or shortness of breath CARDIOVASCULAR: Negative for chest pain, leg swelling, hypertension, CHF or palpitations GI: The patient states that her appetite has been good. She does get hungry. There has been no nausea, no vomiting. She denies dysphagia and denies odynophagia. There has not been indigestion has not had heartburn. There has not been regurgitation. Bowel habits have been regular. Patient states that he bowel movements are based on what she eats. The patient denies rectal bleeding. There has not been melena. No abdominal pain. : No history of dysuria, frequency or incontinence MUSCULOSKELETAL: Negative for joint pain or swelling, back pain or muscle pain SKIN: Negative for lesions, rash, and itching PSYCH: patient states she has early onset Alzheimer's HEMATOLOGY/LYMPHOLOGY Negative for prolonged bleeding, bruising easily or swollen nodes ENDOCRINE: Negative for cold or heat intolerance, polyuria, polydipsia and goiter NEURO: No history of headaches, syncope, paralysis, seizures or tremors All other reviewed and negative other than HPI. PAST MEDICAL HISTORY Diagnosis Date - Benign neoplasm of colon - Diverticulosis [...] PAST SURGICAL HISTORY Procedure Laterality Date - COLONOSCOP W/ OR W/O [facility] SPEC 2002 Colonoscopy WNL - COLONOSCOP W/ OR W/O [facility] SPEC 11/23/05 Colonoscopy - COLONOSCOP W/ OR W/O [facility] SPEC 02/03/11 - COLONOSCOP W/ OR W/O [facility] SPEC 06/05/16 Colonoscopy - DANDC, DIAG AND/OR THERAPEUTIC Dilation AND curettage - LIGATE FALLOPIAN TUBE Tubal ligation - PAST SURGICAL HISTORY OF 1997 BSO hysterectomy - PAST SURGICAL HISTORY OF benign tumor and cyst - negative - PAST SURGICAL HISTORY OF 03/08 bone density study WNL - PAST SURGICAL HISTORY OF 02/07 Cariovascular stress test negative - PAST SURGICAL HISTORY OF foot surgery - REMOVAL GALLBLADDER 1998 Cholecystectomy Current Outpatient Medications Medication Sig Dispense Refill - HYDROCHLOROTHIAZIDE 25 MG TAB Take one(1) tablet daily. 0 - LIPITOR 10 MG TAB Take one(1) tablet daily. 0 - MAVIK 4 MG TAB Take one(1) tablet daily (more content not included)... Normal [facility][id number]) 1940 F Date Time Provider Department 04/24/21 IRAIDA SIMMONS During your visit today, we recorded the following information about you: Jeimy Oliver LPN 04/24/2021 3:00 PM Addendum Patient is scheduled at [facility] on 05/29/[address] Buchanan for a colonoscopy. DX: Adenomatous polyp of colon, unspecified part of colon [D12.6] Verbal and written instructions given. [facility] SURGICAL PHONE NOTE Date of Procedure/Surgery: 05/22/21 Procedure/Surgery Type: COLONOSCOPY ? SEDATION:Conscious Sedation Location of Planned Procedure/Surgery: ? [facility] Surgery/Procedure Ordered: Yes COVID Testing Required: (FOR MAC CASES AND ASC PROCEDURES OTHER THAN COLON AND EGD): No Pre-Op Clearance Needed: No Prep Ordered:Yes: MIRALAX/DULCOLAX Prep Instructions given:Yes: Given in the office. Referral Completed:JEMMAE to complete. 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 Allergies As of Date: 04/24/2021 Noted Allergy Reaction ASA (SALICYLATES) 10/12/2005 5 - Intolerance Comments: can't take due to Macular Degeneration LODINE (ETODOLAC) 10/12/2005 5 - Intolerance Comments: not effective Date Reviewed: 04/24/2021 Reviewed by: Jeimy Oliver LPN - Fully Assessed Reason for Visit: Procedure [88] Cmt: Colonoscopy Primary Visit Diagnosis:Adenomatous polyp of colon, unspecified part of colon [D12.6] Order(s):SURGICAL REQUEST - ELECTIVE (06/2020) [[id number]] Order #: [id number]: 1 Prescriptions as of 06/12/2021 - polyethylene glycol 3350 (MIRALAX, GLYCOLAX) 17 gram/dose powder Use as directed for Miralax / Gatorade Bowel Prep Kit - Bisacodyl (DULCOLAX) 5 mg tab Use as directed for Miralax / Gatorade Bowel Prep Kit - diclofenac, EC, 75 mg ORAL EC tablet Take one(1) tablet two(2) times daily. - HYDROCHLOROTHIAZIDE 25 MG TAB Take one(1) tablet daily. - LIPITOR 10 MG TAB Take one(1) tablet daily. - MAVIK 4 MG TAB Take one(1) tablet daily. - VIACTIV 500 MG-100 UNIT-40 MCG CHEWABLE TAB two (2) daily Problem List As Of Date 04/24/2021 Noted Resolved BENIGN HYPERTENSION [I10] PURE HYPERCHOLESTEROLEM [E78.00] LUMBAGO [M54.5] IMPAIRED FASTING GLUCOSE [R73.01] OBESITY NOS [E66.9] GENERAL OSTEOARTHROSIS [M15.9] TENOSYNOV HAND/WRIST NEC [M65.849, M65.839] DIABETES MELLITUS TYPE II-UNCOMPL [E11.9] DIVERTICULOSIS OF COLON W/O BLEED [K57.30] PERS HX COLONIC POLYPS [Z86.010] PERS HX SKIN MALIGNANCY NEC [Z85.828] 05/16/2007 Screening for colon cancer [Z12.11] 06/05/2016 06/05/2016 Encounter Status:Closed by PATRICIA ALVAREZAUBREYA on 05/02/21 Normal [facility] HISTORY PHYSICALon HISTORY PHYSICAL HNO ID: [id number] Author: Iraida Simmons APRN.ALARM MECHANIC Service: ? Author Type: Nurse Practitioner Type: HANDP Filed: 04/25/2021 9:06 AM Note Text: DEPARTMENT OF GASTROENTEROLOGY - NEW PATIENT/CONSULT REASON FOR VISIT Melyssa Mata is a 80 year old female who is scheduled at the request of Francois Black for No chief complaint on file.. My final recommendations will be communicated back to the requesting physician by the way of the shared medical record, fax, or via US Mail HISTORY OF PRESENT ILLNESS Melyssa Mata is a 80 year old female who presents today for an evaluation of colonoscopy 5 year surveillance. Patient has a personal history of personal history of colon polyps. The patient denies change in bowel habits,denies black stool, rectal bleeding and abdominal pain. Having a bowel movement depends on what she eats - sometimes will have constipation only will have diarrhea if she eats something that will cause diarrhea - Does not drink or eat - diary products Admits does not drink enough PRIOR TEST RESULTS Imaging/Procedures: The patient was seen by Dr.Brian Raphael for colonoscopy for personal history of colon polyps on 06/05/2016. The procedure report has been reviewed and findings as follows: Impression: ? - Diverticulosis in the sigmoid colon and in the ? descending colon. ? - Five 5 mm polyps in the rectum, in the ascending ? colon and in the cecum. Resected and retrieved. Pathology: 1. Colon, cecum, polypectomy (A) - Tubular adenoma. - Separate fragments of colonic mucosa with features of sessile serrated polyp, negative for cytologic dysplasia. ?2. Colon, ascending, polypectomy (B) ?Polypoid colonic mucosa with no specific diagnostic alteration. - see comment. ?3. Rectum, polypectomy (C) - Hyperplastic polyp. 2. (B). Additional histologic sections were examined. There is no evidence of dysplasia. REVIEW OF SYSTEMS: GENERAL: No weight loss, malaise or fevers HEENT: Negative for frequent or significant headaches, No changes in hearing or vision, no nose bleeds or other nasal problems RESPIRATORY: Negative for cough, hemoptysis, wheezing, COPD, dyspnea or shortness of breath CARDIOVASCULAR: Negative for chest pain, leg swelling, hypertension, CHF or palpitations GI: The patient states that her appetite has been good. She does get hungry. There has been no nausea, no vomiting. She denies dysphagia and denies odynophagia. There has not been indigestion has not had heartburn. There has not been regurgitation. Bowel habits have been regular. Patient states that he bowel movements are based on what she eats. The patient denies rectal bleeding. There has not been melena. No abdominal pain. : No history of dysuria, frequency or incontinence MUSCULOSKELETAL: Negative for joint pain or swelling, back pain or muscle pain SKIN: Negative for lesions, rash, and itching PSYCH: patient states she has early onset Alzheimer's HEMATOLOGY/LYMPHOLOGY Negative for prolonged bleeding, bruising easily or swollen nodes ENDOCRINE: Negative for cold or heat intolerance, polyuria, polydipsia and goiter NEURO: No history of headaches, syncope, paralysis, seizures or tremors All other reviewed and negative other than HPI. PAST MEDICAL HISTORY Diagnosis Date - Benign neoplasm of colon - Diverticulosis [...] PAST SURGICAL HISTORY Procedure Laterality Date - COLONOSCOP W/ OR W/O [facility] SPEC 2002 Colonoscopy WNL - COLONOSCOP W/ OR W/O [facility] SPEC 11/23/05 Colonoscopy - COLONOSCOP W/ OR W/O [facility] SPEC 02/03/11 - COLONOSCOP W/ OR W/O [facility] SPEC 06/05/16 Colonoscopy - DANDC, DIAG AND/OR THERAPEUTIC Dilation AND curettage - LIGATE FALLOPIAN TUBE Tubal ligation - PAST SURGICAL HISTORY OF 1997 BSO hysterectomy - PAST SURGICAL HISTORY OF benign tumor and cyst - negative - PAST SURGICAL HISTORY OF 03/08 bone density study WNL - PAST SURGICAL HISTORY OF 02/07 Cariovascular stress test negative - PAST SURGICAL HISTORY OF foot surgery - REMOVAL GALLBLADDER 1998 Cholecystectomy Current Outpatient Medications Medication Sig Dispense Refill - HYDROCHLOROTHIAZIDE 25 MG TAB Take one(1) tablet daily. 0 - LIPITOR 10 MG TAB Take one(1) tablet daily. 0 - MAVIK 4 MG TAB Take one(1) tablet daily. 0 - polyethylene glycol 3350 (MIRALAX, GLYCOLAX) 17 gram/dose powder Use as directed for Miralax / Gatorade Bowel Prep Kit 238 g 0 - Bisacodyl (DULCOLAX) 5 mg tab Use as directed for Miralax / Gatorade Bowel Prep Kit 4 tablet 0 - diclofenac, E (more content not included)... Normal [facility] 04-24-2021 HOSP Patient:Melyssa Mata MRN: Height:4' 10.661(1.49 m) Weight:No patient weight recorded within the last 30 days. Outpatient Medications as of 05/29/21: polyethylene glycol 3350 (MIRALAX, GLYCOLAX) 17 gram/dose powder Bisacodyl (DULCOLAX) 5 mg tab diclofenac, EC, 75 mg ORAL EC tablet HYDROCHLOROTHIAZIDE 25 MG TAB LIPITOR 10 MG TAB MAVIK 4 MG TAB VIACTIV 500 MG-100 UNIT-40 MCG CHEWABLE TAB Admission/Clinic Administered Medications as of 05/29/21: lactated ringers iv infusion Problem List: Essential hypertension, benign [I10] Pure hypercholesterolemia [E78.00] Lumbago [M54.5] Impaired fasting glucose [R73.01] Obesity, unspecified [E66.9] Generalized osteoarthrosis, unspecified site [M15.9] Other tenosynovitis of hand and wrist [M65.849, M65.839] Type II or unspecified type diabetes mellitus without mention of complication, not stated as uncontrolled [E11.9] Diverticulosis of colon (without mention of hemorrhage) [K57.30] Personal history of colonic polyps [Z86.010] Personal history of other malignant neoplasm of skin [Z85.828] Adenomatous polyp of colon [D12.6] Allergies: Asa [Salicylates] Lodine [Etodolac] Date Verified: 05/29/21 Lab Values No results within the last 30 days for the following basenames: K,HCT No progress notes entered within the past 30 days Normal [facility] Laboratory - Microbiology an d Antimicrobial susceptibility Respiratory pathogens DNA and RNA 12b panel ARLEN+probe (Unsp spec) [facility] Work Phone: Vital Signs Date Time Vital Sign Value Performing Clinician Gelyi brady 03-16-2024 19:50-0400 Body height 147.32 cm [facility] 03-16-2024 19:50-0400 Body mass index (BMI) [Ratio] 27.8 kg/m2 [facility] 03-16-2024 19:50-0400 Body temperature 97.8 [degF] [facility] 03-16-2024 19:50-0400 Body weight 60.49 kg [facility] 03-16-2024 19:50-0400 Diastolic blood pressure 65 mm[Hg] [facility] 03-16-2024 19:50-0400 Heart rate 67 /min [facility] 03-16-2024 19:50-0400 Respiratory rate 16 /min [facility] 03-16-2024 19:50-0400 SaO2% (BldA) [Mass fraction] 100 % [facility] 03-16-2024 19:50-0400 Systolic blood pressure 163 mm[Hg] [facility] 12-31-2023 10:17-0500 Body height 152.4 cm [facility] 12-31-2023 10:17-0500 Body mass index (BMI) [Ratio] 24.4 kg/m2 [facility] 12-31-2023 10:17-0500 Body temperature 97 [degF] [facility] 12-31-2023 10:17-0500 Body weight 56.69 kg [facility] 12-31-2023 10:17-0500 Diastolic blood pressure 50 mm[Hg] [facility] 12-31-2023 10:17-0500 Heart rate 66 /min [facility] 12-31-2023 10:17-0500 Respiratory rate 16 /min [facility] 12-31-2023 10:17-0500 SaO2% (BldA) [Mass fraction] 99 % [facility] 12-31-2023 10:17-0500 Systolic blood pressure 134 mm[Hg] [facility] 07-02-2023 12:11-0400 Body height 152.4 cm [facility] 07-02-2023 12:11-0400 Body mass index (BMI) [Ratio] 23.6 kg/m2 [facility] 07-02-2023 12:11-0400 Body temperature 97.2 [degF] [facility] 07-02-2023 12:11-0400 Body weight 54.88 kg [facility] 07-02-2023 12:11-0400 Diastolic blood pressure 77 mm[Hg] [facility] 07-02-2023 12:11-0400 Heart rate 64 /min [facility] 07-02-2023 12:11-0400 Respiratory rate 16 /min [facility] 07-02-2023 12:11-0400 SaO2% (BldA) [Mass fraction] 100 % [facility] 07-02-2023 12:11-0400 Systolic blood pressure 142 mm[Hg] [facility] 01-01-2023 22:47-0500 Diastolic blood pressure 61 mm[Hg] Dr. Liane Stephenson Work Phone: [facility] 01-01-2023 22:47-0500 Heart rate 73 /min Dr. Liane Stephenson Work Phone: [facility] 01-01-2023 22:47-0500 Respiratory rate 15 /min Dr. Liane Stephenson Work Phone: [facility] 01-01-2023 22:47-0500 SaO2% (BldA) [Mass fraction] 98 % Dr. Liane Stephenson Work Phone: [facility] 01-01-2023 22:47-0500 Systolic blood pressure 125 mm[Hg] Dr. Liane Stephenson Work Phone: [facility] 01-01-2023 18:21-0500 Body height 147.[address] Liane Stephenson Work Phone: [facility] 01-01-2023 18:21-0500 Body mass index (BMI) [Ratio] 29.9 kg/m2 Dr. Liane Stephenson Work Phone: [facility] 01-01-2023 18:21-0500 Body temperature 96.8 [degF] Dr. Liane Stephenson Work Phone: [facility] 01-01-2023 18:21-0500 Body weight 65.[address] Liane Stephenson Work Phone: [facility] 12-18-2022 10:27-0500 Body height 147.[address] Liane Stephenson Work Phone: [facility] 12-18-2022 10:27-0500 Body mass index (BMI) [Ratio] 28.8 kg/m2 Dr. Liane Stephenson Work Phone: [facility] 12-18-2022 10:27-0500 Body temperature 96.6 [degF] Dr. Liane Stephenson Work Phone: [facility] 12-18-2022 10:27-0500 Body weight 62.[address] Liane Stephenson Work Phone: [facility] 12-18-2022 10:27-0500 Diastolic blood pressure 82 mm[Hg] Dr. Liane Stephenson Work Phone: [facility] 12-18-2022 10:27-0500 Heart rate 65 /min Dr. Liane Stephenson Work Phone: [facility] 12-18-2022 10:27-0500 Respiratory rate 16 /min Dr. Liane Stephenson Work Phone: [facility] 12-18-2022 10:27-0500 SaO2% (BldA) [Mass fraction] 99 % Dr. Liane Stephenson Work Phone: [facility] 12-18-2022 10:27-0500 Systolic blood pressure 141 mm[Hg] Dr. Liane Stephenson Work Phone: [facility] 10-09-2022 08:05-0500 Body temperature 97.9 [degF] Dr. Liane Stephenson Work Phone: [facility] 10-09-2022 08:05-0500 Diastolic blood pressure 80 mm[Hg] Dr. Liane Stephenson Work Phone: [facility] 10-09-2022 08:05-0500 Heart rate 61 /min Dr. Liane Stephenson Work Phone: [facility] 10-09-2022 08:05-0500 Respiratory rate 18 /min Dr. Liane Stephenson Work Phone: [facility] 10-09-2022 08:05-0500 SaO2% (BldA) [Mass fraction] 100 % Dr. Liane Stephenson Work Phone: [facility] 10-09-2022 08:05-0500 Systolic blood pressure 155 mm[Hg] Dr. Liane Stephenson Work Phone: [facility] 10-09-2022 04:34-0500 Body weight 62.[address] Liane Stephenson Work Phone: [facility] 10-08-2022 10:21-0500 Body height 147.[address] Liane Stephenson Work Phone: [facility] Work Phone: 10-07-2022 19:14-0500 Body mass index (BMI) [Ratio] 29.3 kg/m2 Dr. Liane Stephenson Work Phone: [facility] 10-07-2022 17:51-0500 Body temperature 97.2 [degF] [facility] Work Phone: 10-07-2022 17:51-0500 Diastolic blood pressure 44 mm[Hg] [facility] Work Phone: 10-07-2022 17:51-0500 Heart rate 75 /min [facility] Work Phone: 10-07-2022 17:51-0500 Respiratory rate 18 /min [facility] Work Phone: 10-07-2022 17:51-0500 SaO2% (BldA) [Mass fraction] 98 % [facility] Work Phone: 10-07-2022 17:51-0500 Systolic blood pressure 128 mm[Hg] [facility] Work Phone: 10-07-2022 14:42-0500 Body height 147.32 cm [facility] Work Phone: 10-07-2022 14:42-0500 Body mass index (BMI) [Ratio] 29.5 kg/m2 [facility] Work Phone: 10-07-2022 14:42-0500 Body weight 63.95 kg [facility] Work Phone: 06-19-2022 10:30-0400 Body height 147.32 cm [facility] Work Phone: 06-19-2022 10:30-0400 Body temperature 96.8 [degF] [facility] Work Phone: 06-19-2022 10:30-0400 Diastolic blood pressure 76 mm[Hg] [facility] Work Phone: 06-19-2022 10:30-0400 Heart rate 63 /min [facility] Work Phone: 06-19-2022 10:30-0400 Respiratory rate 16 /min [facility] Work Phone: 06-19-2022 10:30-0400 SaO2% (BldA) [Mass fraction] 100 % [facility] Work Phone: 06-19-2022 10:30-0400 Systolic blood pressure 131 mm[Hg] [facility] Work Phone: 12-25-2021 09:48-0500 Body height 147.32 cm [facility] Work Phone: 12-25-2021 09:48-0500 Body mass index (BMI) [Ratio] 29.2 kg/m2 [facility] Work Phone: 12-25-2021 09:48-0500 Body temperature 97.6 [degF] [facility] Work Phone: 12-25-2021 09:48-0500 Body weight 63.5 kg [facility] Work Phone: 12-25-2021 09:48-0500 Diastolic blood pressure 90 mm[Hg] [facility] Work Phone: 12-25-2021 09:48-0500 Heart rate 78 /min [facility] Work Phone: 12-25-2021 09:48-0500 Respiratory rate 16 /min [facility] Work Phone: 12-25-2021 09:48-0500 SaO2% (BldA) [Mass fraction] 97 % [facility] Work Phone: 12-25-2021 09:48-0500 Systolic blood pressure 131 mm[Hg] [facility] Work Phone: Encounters Encounter Date Encounter Type Care Provider Facility Start: 12-29-2024 End: 12-29-2024 ambulatory Liane Malys Facility:[facility] Start: 06-30-2024 End: 06-30-2024 ambulatory Liane Malys Facility:[facility] Start: 06-19-2024 End: 06-19-2024 ambulatory Liane Malys Facility:[facility] Start: 03-31-2024 End: 03-31-2024 ambulatory Liane Malys Facility:[facility] Start: 03-16-2024 End: 03-16-2024 Emergency department patient visit [facility]Emergency Department Work Phone: Start: 12-31-2023 End: 12-31-2023 ambulatory [facility] Work Phone: Start: 12-31-2023 End: 12-31-2023 Patient encounter procedure [facility]-Medical Out Work Phone: Start: 12-08-2023 End: 12-08-2023 Patient encounter procedure [facility] Start: 10-11-2023 End: 11-07-2023 ambulatory [facility] Work Phone: Start: 10-11-2023 End: 11-07-2023 Discharged Recurring [facility]-Nutritional Services Work Phone: Start: 10-11-2023 Registered Recurring [facility]-Physical Therapy Work Phone: Start: 09-07-2023 End: 09-07-2023 ambulatory [facility] Work Phone: Start: 09-07-2023 End: 09-07-2023 Patient encounter procedure [facility]-Radiology, [place] Work Phone: Start: 07-02-2023 End: 07-02-2023 ambulatory [facility] Work Phone: Start: 07-02-2023 End: 07-02-2023 Patient encounter procedure [facility]-Medical Out Work Phone: Start: 05-07-2023 End: 05-07-2023 ambulatory [facility] Work Phone: Start: 05-07-2023 End: 05-07-2023 Patient encounter procedure [facility]-RAD [facility] Work Phone: Start: 03-30-2023 End: 03-30-2023 Patient encounter procedure [facility]Radiology, [place] Work Phone: Start: 03-24-2023 End: 03-24-2023 Patient encounter procedure [facility]Ar[facility] Start: 02-08-2023 End: 02-08-2023 ambulatory [facility] Work Phone: Start: 02-08-2023 End: 02-08-2023 Patient encounter procedure [facility] Arash Nolan [facility] Start: 01-01-2023 End: 01-01-2023 Emergency department patient visit Dr. Liane Stephenson Work Phone: [facility]-Emergency Department Start: 12-18-2022 End: 12-18-[address] Liane Stephenson Work Phone: [facility] Work Phone: Start: 12-18-2022 End: 12-18-[address] [facility] Start: 10-14-2022 End: 10-14-[address] Liane Stephenson Work Phone: [facility] Arash Nolan [facility] Start: 10-09-2022 Non-patient / Non-visit Dr. Radha Stephenson Work Phone: [facility] Start: 10-08-2022 Non-patient / Non-visit Dr. Radha Stephenson Work Phone: [facility] Start: 10-08-2022 Non-patient / Non-visit Dr. Radha Stephenson Work Phone: [facility] Start: 10-07-2022 Non-patient / Non-visit Dr. Radha Stephenson Work Phone: [facility] Start: 10-07-2022 End: 10-09-2022 [facility] Start: 06-19-2022 End: 06-19-2022 [facility] Start: 04-16-2022 End: 04-16-2022 Patient encounter procedure [facility] Start: 12-25-2021 End: 12-25-2021 Patient encounter procedure [facility] Out Procedures Date Procedure Procedure Detail Performing Clinician Start: 09-07-2023 Plain x-ray of pelvi s and lower extremity Start: 09-07-2023 X-ray of lumbar spin e, two or three views Start: 03-30-2023 X-ray of cervical spine Start: 10-08-2022 Computed tomography of abdomen and pelvis with intravenous contrast Dr. Liane Stephenson Work Phone: Start: 10-07-[address] Liane Stephenson Work Phone: Start: 10-07-2022 Plain chest X-ray Respiratory Panel (PCR) Dr. Liane Stephenson Work Phone: Respiratory Panel (PCR) Dr. Liane Stephenson Work Phone: Plan of Treatment Date Care Activity Detail Author Start: 03-16-2024 [facility] Start: 10-09-2022 Patient discharge [facility] Start: 10-07-2022 Application of inter mittent pneumatic compression device [facility] Start: 10-07-2022 Assessment of risk o f venous thromboembolism [facility] Start: 10-07-2022 Fall prevention [facility] Start: 10-07-2022 Incentive spirometry [facility] Start: 10-07-2022 Inhalation therapy procedure [facility] Start: 10-07-2022 Insertion of cathete r into peripheral vein [facility] Start: 10-07-2022 Introduction of urinary catheter [facility] Start: 10-07-2022 Measuring intake and output [facility] Start: 10-07-2022 Oxygen therapy [facility] Start: 10-07-2022 Providing care accor ding to standard [facility] Start: 10-07-2022 Provision of activity privileges [facility] Start: 10-07-2022 Referral to gastroen terology service [facility] Start: 10-07-2022 End: 10-07-2022 [facility] Start: 10-07-2022 Following clinical p athway protocol [facility] Start: 10-07-2022 Admission procedure [facility] Alanine aminotransfe rase [Enzymatic activity/volume] in Serum or Plasma [facility] Work Phone: Albumin [Mass/volume ] in Serum or Plasma [facility] Work Phone: Alkaline phosphatase [Enzymatic activity/volume] in Serum or Plasma [facility] Work Phone: Anion gap measurement [facility] Work Phone: Aspartate aminotrans ferase [Enzymatic activity/volume] in Serum or Plasma [facility] Work Phone: Bilirubin, total measurement [facility] Work Phone: BUN/Creatinine ratio [facility] Work Phone: Calcium [Mass/volume ] in Serum or Plasma [facility] Work Phone: Carbon dioxide, tota l [Moles/volume] in Serum or Plasma [facility] Work Phone: Chloride [Moles/volu me] in Serum or Plasma [facility] Work Phone: Cholesterol [Mass/vo lume] in Serum or Plasma [facility] Work Phone: Cholesterol in HDL [ Mass/volume] in Serum or Plasma [facility] Work Phone: Cholesterol in LDL [ Mass/volume] in Serum or Plasma [facility] Work Phone: Creatinine [Moles/vo lume] in Serum or Plasma [facility] Work Phone: Glucose [Mass/volume ] in Serum or Plasma [facility] Work Phone: Hematocrit [Volume F raction] of Blood [facility] Work Phone: Hemoglobin [Mass/volume] in Blood [facility] Work Phone: Hepatitis A virus Ig M Ab [Presence] in Serum [facility] Work Phone: Hepatitis B core ant ibody measurement, IgM type [facility] Work Phone: Hepatitis B surface antigen measurement [facility] Work Phone: Hepatitis C antibody measurement [facility] Work Phone: Leukocytes [#/volume] in Blood [facility] Work Phone: Lipase measurement [facility] Work Phone: Mean corpuscular hem oglobin concentration determination [facility] Work Phone: Mean corpuscular hem oglobin determination [facility] Work Phone: Measurement of renal function [facility] Work Phone: Neutrophil count [facility] Work Phone: Neutrophil percent d ifferential count [facility] Work Phone: Patient Education [facility] Work Phone: Patient referral [facility] Work Phone: Platelets [#/volume] in Blood [facility] Work Phone: Potassium [Moles/vol ume] in Serum or Plasma [facility] Work Phone: Red blood cell count [facility] Work Phone: Red cell distributio n width determination [facility] Work Phone: Respiratory pathogen s DNA and RNA 12b panel - Unspecified specimen by ARLEN with probe detection [facility] Work Phone: Sodium [Moles/volume ] in Serum or Plasma [facility] Work Phone: Total protein measurement [facility] Work Phone: Triglycerides measurement [facility] Work Phone: Urea nitrogen [Mass/ volume] in Serum or Plasma [facility] Work Phone: VLDL cholesterol measurement [facility] Work Phone: Immunizations Immunization Date Immunization Notes Care Provider [facility] 03-16-2024 tetanus toxoid, redu solo diphtheria toxoid, and acellular pertussis vaccine, adsorbed [facility] 01-10-2021 Covid (Moderna) [facility] Payers Date Payer Category Payer Private Health Insurance [id number] 2023 Self-pay [id number] 2014 Unknown [id number] Medicare [id number] Self-pay SELF PAY BY [facility] [id number] Unknown [id number] Unknown [id number] Unknown [id number] Unknown [id number] Unknown [id number] Social History Date Type Detail Facility Start: 06-01-2021 End: 03-16-2024 Tobacco smoking status NHIS Unknown if ever smoked [facility] Start: 04-15-2021 None [facility] Start: 04-15-2021 Homeless [facility] Start: 06-01-2021 Non-smoker [facility] Start: 1940 Sex Assigned At Female [facility] Goals Date Patient Goal Desired Activity /State Functional Status Date Assessment Result Facility 10-09-2022 Functional status Ambulates [facility] Work Phone: Mental Status Date Assessment Result Facility 07-02-2023 Cognitive function Voice/Name [facility] Work Phone: 12-18-2022 Cognitive function Voice/Name [facility] Work Phone: 10-09-2022 Cognitive function Voice/Name [facility] Work Phone: 06-19-2022 Cognitive function Awake;Alert;A ppropriate;Fol lows Commands [facility] Work Phone: 12-25-2021 Cognitive function Awake;Alert;A ppropriate;Fol lows Commands [facility] Work Phone: Discharge summary 03-16-2024 Note Date & Type Note Facility 03-16-2024 Discharge summary Note Date/Time March 16, 2024 8:45pm [facility] Medical Records Department [address] [place] [address] Emergency Department Summary 03/16/24 MR#: [id number] Acct: [id number] Name: MELYSSA MATA Rep #:[id number] : 1940 83 From: Gaurav Parker DO PCP: Dr. Liane Stephenson DO Status:REG ER Location: ED HPI History of Present Illness Chief Complaint: Bite Narrative Narrative: 83-year-old female with dog bite to the left ring finger. She states her dog has a bad hip and was trying to jump on her lap and grazed her left ring finger medially with his teeth. Shots are up-to-date. Last tetanus is unknown for herhowever. She does not have a lot of pain. She did irrigate her wound did not clean it out with peroxide. [facility] Medical History HLD (hyperlipidemia) HTN (hypertension) Macular degeneration Obesity Home Medications Trandolapril [Mavik] 4 mg PO DAILY blood pressure 12/17/15 [History Last Taken 10/06/22] hydrochlorothiazide 25 mg tablet 12.5 mg PO DAILY diuretic 12/17/15 [History Last Taken 10/06/22] atorvastatin 40 mg tablet 40 mg PO QHS CHOLESTEROL 10/07/22 [History Last Taken 10/06/22] clopidogrel 75 mg tablet 75 mg PO DAILY BLOOD THINNER 10/07/22 [History Last Taken 10/06/22] ursodiol 250 mg tablet 250 mg PO BID #60 tabs 10/09/22 [Rx Last Taken Unknown] amoxicillin 875 mg-potassium clavulanate 125 mg tablet 1 tab PO BID #20 tabs 03/16/24 [Rx Last Taken Unknown] Allergy/AdvReac Type Severity Reaction Status Date / Time aspirin AdvReac Unknown Verified 03/16/24 19:53 Family History Father Myocardial infarction Brother Myocardial infarction CVA (cerebral vascular accident) Mother Heart disease Surgical History H/O: hysterectomy History of knee replacement procedure of left knee History of spinal fusion Hx of cholecystectomy Social History household members: spouse Smoking Status: Never smoker alcohol intake: never substance use type: does not use ROS ROS ED Constitutional Constitutional ED: Denies chills, fever(s) or sweats Eyes Eyes: Denies blurry vision or change in vision ENT ENT ED: Denies ear pain or sore throat Cardiovascular Cardiovascular: Denies chest pain, palpitations or racing heartbeat Respiratory/Chest Respiratory/Chest: Denies cough, dyspnea or sputum Gastrointestinal Gastrointestinal: Denies abdominal pain, constipation, diarrhea, nausea or vomiting Genitourinary Genitourinary ED: Denies dysuria, hematuria or urinary frequency Musculoskeletal Musculoskeletal: Denies arthralgias, myalgias or neck pain Integumentary Reports other Details: Dog bite left ring finger ; Denies abscess, Abrasions or rash Neurologic Neurologic: Denies headache(s), paresthesias or weakness Psychiatric Psychiatric: Denies anxiety, depression, suicidal ideation or suicidal thoughts Endocrine Endocrinology: Denies polydipsia or polyuria EXAM Physical Exam Const Vital Signs: 03/16/24 19:50 Temperature 97.8 F Temperature Source Temporal Pulse Rate 67 Respiratory Rate 16 Blood Pressure 163/65 H Blood Pressure Mean 97 Pulse Ox 100 Oxygen Delivery Method Room Air Positive well nourished General Appearance ED: NAD HEENT atraumatic Eyes PERRL and EOMs intact bilaterally Resp normal respiratory effort Cardio regular rhythm Rate: regular rate Extremity Extremity Narrative: Laceration to the medial aspect of the left ring finger not involving the nailbed but it is about 2 cm. It is not closely approximated but is not gaping. No tendon or bone exposure. No bony tenderness. Neurovascular intact. Neuro oriented x3 Sensorium / Orientation: alert Psych mental status grossly normal MDM MDM MDM Narrative Medical decision making narrative: 83-year-old female presenting with dog bite to the left ring finger. I do not believe she needs any imaging. Tetanus was updated today. Wound was cleaned and dressed. She started on Augmentin. She given wound care instructions and return precautions. Impression: 1. Dog bite left ring finger 2. Tetanus immunization Discharge Plan Triage Chief Complaint: Bite ED Provider: Gaurav Parker Dx/Rx/DC Orders Instructions: ED Dog Bite Prescriptions: New amoxicillin-pot clavulanate 875-125 mg tablet 1 tab PO BID Qty: 20 0RF No Action hydrochlorothiazide 25 MG tablet 12.5 mg PO DAILY Patient Comments: blood pressure Trandolapril [Mavik] 4 MG tablet 4 mg PO DAILY Patient Comments: blood pressure/heart atorvastatin 40 MG tablet 40 mg PO QHS clopidogrel 75 MG tablet 75 mg PO DAILY ursodiol 250 mg tablet 250 mg PO BID Qty: 60 0RF Primary Care Provider: Liane Stephenson Referrals: Liane Stephenson DO [Primary Care Provider] - Disposition Disposition: Home, Self Care What to do if you have Problems For any increased pain, shortness of breath, bleeding, nausea or vomiting, chestpain, or any unexpected problems, contact your Primary Care Provider. Call [facility] ([phone]) or report to the closest Emergency Room. Call 911 if necessary. 03/16/242044 <Electronically signed by Gaurav Parker DO> Cosigner Signature (if applicable): CC: Dr. Liane Stephenson DO ~ Signed [facility] Work Phone: Progress note 07-01-2021 Note Date & Type Note Facility 07-01-2021 Note HNO ID: [id number] Author: Iraida Simmons APRN.ALARM MECHANIC Service: ? Author Type: Nurse Practitioner Type: Progress Notes Filed: 07/01/2021 9:00 AM Note Text: DEPARTMENT OF GASTROENTEROLOGY - FOLLOW UP VISIT HISTORY OF PRESENT ILLNESS Melyssa Mata is a 80 year old female [...] 3. Rectum, polypectomy (C) - Hyperplastic polyp. IAN/ 06/08/2016 COMMENT 2. (B). Additional histologic sections [...] SURGERY HX - COLONOSCOP W/ OR W/O [facility] SPEC 2002 Colonoscopy WNL - COLONOSCOP W/ OR W/O [facility] SPEC 11/23/05 Colonoscopy - COLONOSCOP W/ OR W/O [facility] SPEC 02/03/11 - COLONOSCOP W/ OR W/O [facility] SPEC 06/05/16 Colonoscopy - DANDC, DIAG [...] polyp of asce (more content not included)... [facility] Clinical Note 05-29-2021 Note Date & Type Note Facility 05-29-2021 Note HNO ID: [id number] Author: Gracy Aguilar RN Service: ? Author Type: Registered Nurse Type: Nursing Progress Note Filed: 05/29/2021 8:40 AM Note Text: Patient sitting up in bed tolerating snack and drink without problems. Gracy Aguilar RN [facility] Evaluation note Note Date & Type Note Facility Evaluation note No assessment information availa ble [facility] Work Phone: Evaluation note Note Date & Type Note Facility Evaluation note Diagnosis Onset Date Acute pancreatitis acute Hepatitis acute Nausea & vomiting acute Transaminitis acute [facility] Work Phone: Evaluation note Note Date & Type Note Facility Evaluation note Diagnosis Onset Date Acute pancreatitis resolved Hepatitis resolved Nausea & vomiting resolved Transaminitis resolved [facility] Work Phone: Summary Purpose Family History No Family History Records Found Relationship Condition Age at Onset Recorded Date/T rishi father Myocardial infarction Unknown brother Myocardial infarction Unknown Cerebrovascular accident (CVA) Unknown Relationship Condition Age at Onset Recorded Date/T rishi father Myocardial infarction Unknown brother Myocardial infarction Unknown Cerebrovascular accident (CVA) Unknown mother Cardiac disease Unknown Advance Directives No Advanced Directives Records Found Advance Directive Response Recorded Date/ Time Advance Directives Yes December 7:24pm Living Will Yes May 31, 2021 3:12pm Power of Air Pumper Yes May 31 3:12pm Advance Directive Response Recorded Date/ Time Name of Medical Power of Air Pumper Fabrizio Mata October 07, 2022 6:05pm Advance Directives Yes December 6:24pm Living Will Yes October 07, 6:05pm Power of Air Pumper Yes October 07, 2022 6:05pm Advance Directive Response Recorded Date/ Time Name of Medical Power of Air Pumper Fabrizio Mata October 07, 2022 6:05pm Advance Directives Yes December 6:24pm Living Will No January 01 023 10:47pm Power of Air Pumper No January 01, 2023 10:47pm Advance Directive Response Recorded Date/ Time Advance Directives Yes December 7:24pm Living Will No January 01 11:47pm Power of Air Pumper No January 01, 2023 11:47pm Advance Directive Response Recorded Date/ Time Advance Directives Yes December 6:24pm Living Will No January 01 10:47pm Power of Air Pumper No January 01, 2023 10:47pm Advance Directive Response Recorded Date/ Time Advance Directives Yes December 7:24pm Living Will No March 16, 2024 8: 27pm Power of Air Pumper No March 16, 2024 8:27pm Chief Complaint and Reason for Visit Chief Complaint PROLIA Chief Complaint PROLIA PANCREATITIS Reason for Visit Acute pancreatitis Hepatitis Nausea & vomiting Transaminitis Chief Complaint PROLIA PANCREATITIS, ELEVATED LFT/BILI PANCREATITIS PANCREATITIS, ELEVATED LFT/BILI PANCREATITIS, ELEVATED LFT/BILI Reason for Visit Acute pancreatitis Hepatitis Nausea & vomiting Transaminitis Chief Complaint PANCREATITIS, ELEVAT ED LFT/BILI PANCREATITIS PANCREATITIS, ELEVATED LFT/BILI PANCREATITIS, ELEVATED LFT/BILI PANCREATITIS, ELEVATED LFT/BILI PROLIA Reason for Visit Acute pancreatitis Hepatitis Nausea & vomiting Transaminitis Chief Complaint PANCREATITIS, ELEVAT ED LFT/BILI PANCREATITIS PANCREATITIS, ELEVATED LFT/BILI PANCREATITIS, ELEVATED LFT/BILI PANCREATITIS, ELEVATED LFT/BILI PROLIA UPPER EXT Reason for Visit Acute pancreatitis Hepatitis Nausea & vomiting Transaminitis Chief Complaint PROLIA UPPER EXT Chief Complaint NECK PAIN Chief Complaint NECK PAIN PROLIA Chief Complaint PROLIA HIP PAIN AND BACK PAIN Chief Complaint HIP PAIN AND BACK PA IN HIP/LEG PAIN RX HERE CLASS Chief Complaint HIP PAIN AND BACK PA IN HIP/LEG PAIN RX HERE CLASS PROLIA Chief Complaint PROLIA DOG BITE Additional Source Comments INFORMATION SOURCE (unrecogn ized section and content) DATE CREATED AUTHOR 12/04/2021 [facility] DATE CREATED AUTHOR AUTHOR'S ORGANIZ ATION 01/13/2025 [facility] Goals (unrecognized section and content) Goals may be documented in a n alternate sectionGoals may be documented in an alternate sectionGoals may be documented in an alternate sectionGoals may be documented in an alternate sectionGoals may be documented in an alternate sectionGoals may be documented in an alternate sectionGoals may be documented in an alternate sectionGoals may be documented in an alternate sectionGoals may be documented in an alternate sectionGoals may be documented in an alternate sectionGoals may be documented in an alternate section Care Teams (unrecognized sec tion and content) Team Status: Active Member Role Status Dates Dr. Francois Avila MD Family Provider Active Liane Stephenson Primary Care Provider Active Team Status: Active Member Role Status Dates Dr. Liane Stephenson DO Primary Care Provider Active Dr. Fabrizio Maier MD Emergency Provider Active Dr. Ignacia Parsons MD Admit Provider, Attending Provider, Other Provider Active Team Status: Active Member Role Status Dates Dr. Liane Stephenson DO Primary Care Provider Active Dr. Fabrizio Maier MD Emergency Provider Active Dr. Ignacia Parsons MD Admit Provider, Other Provider Active Dr. Rafa Morrow DO Referring Provider, Other Pro vider Active Dr. Chico Domingo , Attending Provider Active Team Status: Active Member Role Status Dates Dr. Liane Stephenson DO Primary Care Provider Active Dr. Fabrizio Maier MD Emergency Provider Active Dr. Ignacia Parsons MD Admit Provider, Other Provider Active Dr. Rafa Morrow DO Attending Provider, Other Pro vider Active Team Status: Inactive Member Role Status Dates Dr. Liane Stephenson DO Attending Provider, Referring Prov ider Active Liane Stephenson Primary Care Provider Active Team Status: Inactive Member Role Status Dates Dr. Liane Stephenson DO Primary Care Provider Active Dr. Fabrizio Maier MD Emergency Provider Active Dr. Ignacia Parsons MD Admit Provider, Other Provider Active Dr. Rafa Morrow DO Attending Provider Active Team Status: Inactive Member Role Status Dates Dr. Liane Stephenson DO Attending Provider Active Liane Stephenson Primary Care Provider Active Team Status: Inactive Member Role Status Dates Liane Stephenson Primary Care Provider Active Dr. Radha Pugh MD Emergency Provider Active Team Status: Active Member Role Status Dates Dr. Francois Avila MD Family Provider Active Liane CAMPOS Primary Care Provider Active Team Status: Inactive Member Role Status Dates Dr. Liane Stephenson DO Attending Provider, Referring Prov ider Active Liane CAMPOS Primary Care Provider Active Team Status: Inactive Member Role Status Dates Liane CAMPOS Primary Care Provider Active Dr. Radha Pugh MD Attending Provider, Emergency Provider Active Team Status: Inactive Member Role Status Dates Liane CAMPOS Primary Care Provider Active Dr. Liane Stephenson DO Attending Provider, Referring Prov ider Active Team Status: Active Member Role Status Dates Dr. Francois Avila MD Family Provider Active Dr. Liane Stephenson DO Primary Care Provider Active Team Status: Inactive Member Role Status Dates Dr. Liane Stephenson DO Primary Care Provider Active Jessiesally Zabala DECORATING MACHINE TENDER-C Attending Provider, Referring Pro vider Active Team Status: Inactive Member Role Status Dates Dr. Liane Stephenson DO Primary Care Provide r, Attending Provider, Referring Provider Active Team Status: Active Member Role Status Dates Dr. Liane Stephenson DO Primary Care Provide r, Attending Provider, Referring Provider Active Team Status: Inactive Member Role Status Dates Dr. Liane Stephenson DO Primary Care Provider Active Self Referred Attending Provider Active Team Status: Active Member Role Status Dates Dr. Francois Avila MD Family Provider Active Carlene Arriaga DECORATING MACHINE TENDER-C Primary Care Provider Active Team Status: Inactive Member Role Status Dates Dr. Liane Stephenson DO Attending Provider, Referring Prov ider Active Carlene Arriaga DECORATING MACHINE TENDER-C Primary Care Provider Active Team Status: Inactive Member Role Status Dates Carlene Arriaga DECORATING MACHINE TENDER-C Primary Care Provider, Attending P rovider Active Team Status: Inactive Member Role Status Dates Dr. Gaurav Parker DO Emergency Provider Active Dr. Liane Stephenson DO Primary Care Provider Active FOR RECORDS PERTAINING TO PATIENTS WHO ARE [...] BE BASED ON THE PRIMARY CLINICAL RECORDS. [employer] [facility]. provides no warranty or guarantee of the accuracy or completeness of information in this document.
[2025-04-10 10:12] LABS: Absolute Lymphocyte Count 2.21 X10^3/uL (0.83-4.51); Absolute Neutrophil Count 4.4 X10^3/uL (2.0-7.7); Basophil# 0.07 X10^3/uL; Basophil% 0.9 % (0-1); Eosinophil# 0.26 X10^3/uL; Eosinophils% 3.4 % (0-5); Hematocrit 40.5 % (37-47); Hemoglobin 13.3 g/dL (12.0-15.0); Lymphocyte # 2.21 X10^3/ul (0.83-4.51); Lymphocyte % 29.1 % (19-41); Mean Corp Hgb Conc 32.8 g/dL (32-36); Mean Corpuscular Hgb 30.9 pg (27.0-32.0); Mean Corpuscular Volume 94.2 fL (81-99); Mean Platelet Vol. 9.7 fl (6.2-12.0); Monocyte# 0.65 X10^3/uL; Monocyte% 8.6 % (0-10); NRBC Flagged by Analyzer 0 % (0-5); Neutrophil # 4.39 X10^3/uL (2.7-7.7); Neutrophil % 57.9 % (47-70); Platelet Count 316 K/mm3 (150-450); RBC Distribution Width CV 13.2 % (11.6-14.6); White Blood Count 7.6 K/mm3 (4.4-11.0)
[2025-04-10 11:12] LABS: ALB/GLOB Ratio 1.5 RATIO (0.9-2.4); AST(SGOT) 24 U/L (<=31); Alanine Aminotransfer ALT/SGPT 12 U/L (<=34); Albumin, Serum 4.2 g/dL (3.4-4.8); Alkaline Phosphatase 61 U/L (35-104); Anion Gap 12 (5-15); BUN 20 mg/dL (4-19); BUN/Creat Ratio 19.2 RATIO (10-20); Carbon Dioxide 23.2 mmol/L (21.0-32.0); Chloride 105 mmol/L (98-108); Cholesterol 173 mg/dL (<=200); Creatinine, Serum 1.02 mg/dL (0.70-1.20); EST Glomerular Filtration Rate 55 (>60); Globulin 2.9 g/dL (2.2-4.2); Glucose 91 mg/dL (70-99); High Density Lipoprotein 65 mg/dL; Low Density Lipoprotein Calc. 89 mg/dL; Protein, Total 7.1 g/dL (5.9-8.4); Sodium Level 140 mmol/L (133-145); Total Bilirubin 0.38 mg/dL (0.00-1.30); Triglycerides 95 mg/dL; Very Low Density Lipoprotein 19 mg/dL (5-40); cholesterol:hdl ratio screen 2.66
== END | disposition home or self-care (01) ==
LOC: MTLAB 07:48
PROVIDERS: PCP Family Medicine; Referring Provider Family Medicine; Visit Provider Family Medicine
DX: Z51.81 Encounter for therapeutic drug level monitoring (principal); E78.5 Hyperlipidemia, unspecified
CPT/HCPCS: 36415; 80053; 80061; 85025

== ENCOUNTER 2025-05-20 13:49 | Inpatient (IN) | payer MEDICARE, SELFPAY ==
[2025-05-20] VITALS (29 sets, daily range): BP systolic 97–181; BP diastolic 48–99; PULSE 54–72; RESP 14–27; TEMP 36.1–36.8; O2SAT 91–100; BMI 29.1; BMI 28.3
--- NOTE | 2025-05-20 13:59 | ED.VIS.CHEST ---
HPI History of Present Illness Chief Complaint: Chest Pain [facility] Medical History (Updated 05/20/25 @ 17:[address] Ignacia Parsons MD) Dementia Gout Overweight Chronic kidney disease (CKD), stage III (moderate) Stenosis of retinal artery Macular degeneration HLD (hyperlipidemia) HTN (hypertension) Home Medications ?Medication ?Instructions ?Recorded ?Last Taken ?Type hydrochlorothiazide 25 mg tablet 12.5 mg PO DAILY diuretic 12/17/15 10/06/22 History atorvastatin 40 mg tablet 40 mg PO QHS CHOLESTEROL 10/07/22 10/06/22 History clopidogrel 75 mg tablet 75 mg PO DAILY BLOOD THINNER 10/07/22 10/06/22 History ursodiol 250 mg tablet 250 mg PO BID #60 tabs 10/09/22 Unknown Rx allopurinol 100 mg tablet 100 mg PO DAILY 05/20/25 Unknown History memantine 10 mg tablet 10 mg PO BID 05/20/25 Unknown History trandolapril 4 mg tablet 4 mg PO DAILY 05/20/25 Unknown History Allergy/AdvReac Type Severity Reaction Status Date / Time aspirin AdvReac Unknown Verified 05/20/25 13:52 Family History Father Myocardial infarction Brother Myocardial infarction CVA (cerebral vascular accident) Mother Heart disease Surgical History H/O: hysterectomy History of knee replacement procedure of left knee History of spinal fusion Hx of cholecystectomy Social History household members: spouse Smoking Status: Never smoker alcohol intake: never substance use type: does not use EXAM Physical Exam Const Vital Signs: 05/20/25 13:50 05/20/25 14:30 05/20/25 14:45 Temperature 97.8 F Temperature Source Oral Pulse Rate 72 59 L 61 Respiratory Rate 18 17 19 H Blood Pressure 181/99 H 137/48 H 100/65 Blood Pressure Mean 126 65 76 Pulse Ox 98 100 98 Oxygen Delivery Method Room Air 05/20/25 14:56 05/20/25 15:26 05/20/25 15:35 Temperature Temperature Source Pulse Rate 60 Respiratory Rate 17 23 H Blood Pressure 107/78 113/75 Blood Pressure Mean 86 83 Pulse Ox 100 100 Oxygen Delivery Method Room Air 05/20/25 15:40 05/20/25 15:45 05/20/25 15:50 Temperature Temperature Source Pulse Rate 60 59 L 61 Respiratory Rate 16 17 21 H Blood Pressure 105/60 108/60 102/54 L Blood Pressure Mean 74 75 70 Pulse Ox 95 98 99 Oxygen Delivery Method 05/20/25 16:00 05/20/25 16:10 05/20/25 16:15 Temperature Temperature Source Pulse Rate 55 L 54 L 55 L Respiratory Rate 20 H 15 17 Blood Pressure 115/57 L 115/57 L 116/58 L Blood Pressure Mean 76 76 75 Pulse Ox 100 100 99 Oxygen Delivery Method Room Air 05/20/25 16:20 05/20/25 16:25 05/20/25 16:30 Temperature Temperature Source Pulse Rate 54 L 55 L 55 L Respiratory Rate 14 17 24 H Blood Pressure 118/59 L 97/76 112/63 Blood Pressure Mean 75 83 71 Pulse Ox 100 100 100 Oxygen Delivery Method 05/20/25 16:35 05/20/25 16:40 05/20/25 16:45 Temperature Temperature Source Pulse Rate 55 L 56 L 54 L Respiratory Rate 24 H 18 19 H Blood Pressure 109/95 H 107/64 110/59 L Blood Pressure Mean 102 78 74 Pulse Ox 100 100 100 Oxygen Delivery Method 05/20/25 16:50 05/20/25 16:55 05/20/25 17:00 Temperature Temperature Source Pulse Rate 55 L 55 L Respiratory Rate 18 19 H Blood Pressure 109/60 110/56 L 110/73 Blood Pressure Mean 75 71 84 Pulse Ox 98 99 99 Oxygen Delivery Method 05/20/25 17:05 05/20/25 17:26 Temperature 98.2 F Temperature Source Pulse Rate 59 L 59 L Respiratory Rate 27 H 23 H Blood Pressure 113/70 122/86 H Blood Pressure Mean 75 98 Pulse Ox 100 100 Oxygen Delivery Method MDM MDM MDM Narrative Medical decision making narrative: HISTORY OF PRESENT ILLNESS: Chief complaint: Dizziness, chest pain 84-year-old female history of hyperlipidemia, hypertension, presents with chest pain. She notes Left-sided chest pain that began this morning approximate 8 AM approximately 5 hours prior to arrival. She also notes some dizziness and lightheadedness as well. Pain is not exertional. Is not ripping or tearing. The patient denies recent surgery in the last 4 weeks or immobilization in the last 3 days, denies previous diagnosis of DVT or PE, hemoptysis, unilateral leg swelling or malignancy with treatment the last 6 months or palliative. No estrogen use noted. Patient denies sudden onset of pain, no tearing sensation, no migratory symptoms, no new numbness, weakness or loss of sensation. Patient denies family history or personal history of Connective tissue disorders (Marfan's Syndrome, Aristeo Danlos etc) REVIEW OF SYSTEMS: Pertinent positives: Pertinent negatives: [] PHYSICAL EXAM: Nursing triage notes reviewed, Vital signs reviewed Constitutional: please see mdm HENT: MMM Eyes: Pupils equal round and reactive to light, Extraocular muscles intact Neck: No stridor, no JVD, full neck ROM Lungs: Clear to auscultation, No wheezing or rales. No increased work of breathing, no conversational dyspnea, no accessory muscle use, no nasal flaring. No respiratory distress noted Heart: Regular rate and rhythm, No murmurs, No rubs and No gallops, 2+ distal pulses (radial, femoral, posterior tibial) in all extremities Abdomen: Soft, there is no tenderness, rigidity, rebound or guarding, no obvious peritoneal signs, no palpable pulsatile abdominal masses, no auscultated abdominal bruit : No CVAT Extremities: No edema Neuro: alert and oriented x3, neuro exam at baseline, cranial nerves II through XII are intact. No pain with extraocular muscle movement. There is negative test of skew. 5 of 5 strength in upper and lower extremities in flexion extension. Intact sensation to light touch in upper and lower extremity dermatomes. No truncal or extremity ataxia. No dysdiadochokinesia. Normal gait. 2+ reflexes in upper and lower extremities. No meningeal signs. Negative Babinski. NIH of 0. Skin: No rash or lesions noted MEDICAL DECISION MAKING: Chief Complaint: please see HPI External records reviewed: Reviewed prior cardiovascular testing: Reviewed echocardiogram from 2019 which showed ejection fraction 65% Factors affecting care: As per HPI Social determinants of health: Denies illicit drug use such as cocaine or methamphetamine History obtained from others: none Consults: Cardiology (Dr. Ryder) -recommended aspirin, heparin, statin and possible cath in the morning. Discussed case Internal medicine (Dr. Parsons)?recommended admission to PCU full MDM Narrative: The patient was initially hypertensive with blood pressure 181/99 otherwise afebrile and nontoxic-appearing. Exam without focal cardiopulmonary normalities. TTP over left shoulder. I considered the following differential diagnosis: ACS, arrhythmia, anemia, electrolyte disturbance, pneumothorax, pneumonia, PE, aortic dissection I obtained a broad lab and imaging to further determine if the patient was suffering from a life-threatening etiology. ALL IMAGES (IF OBTAINED) HAVE BEEN PERSONALLY REVIEWED AND INTERPRETED BY MYSELF. EKG with sinus bradycardia rate 59, left axis deviation, right bundle branch block, QTc 427, no obvious to Initial troponin elevated consistent with myocardial ischemia CBC without leukocytosis, severe anemia, no thrombocytopenia. No coagulopathy D-dimer negative making VTE and aortic dissection less like BNP within normal limit BMP without evidence of significant electrolyte abnormalities, no anion gap, no acute kidney injury. I have personally reviewed the patient's chest x-ray. Chest x-ray is unremarkable for pulmonary edema, pneumothorax, pneumonia or focal cardiopulmonary abnormality. X-ray left shoulder was read reviewed personally myself showed no evidence of obvious bony abnormality Discussed with cardiology recommended admission and possible catheterization urgently. Patient remained chest pain-free. Repeat troponin continued to uptrend. Patient was started on heparin. On reevaluation patient main chest pain free. Blood pressure improved to 122/86. Discussed with Dr. Parsons he recommended PCU full admission The patient and/or family, caregivers express understanding. The patient and/or family, caregivers agrees with the plan. Shared decision making: I will have a discussion with the patient and or visitors regarding risk/benefits of further testing or admission. They will be made aware of of the risk/benefits inherent in this decision they will be given the opportunity to voice understanding. Total critical care time today provided was at least 35 minutes. This excludes separately billable procedures. Critical care time (if documented) is secondary to the patient having high probability of clinically significant/life threatening deterioration in the patient's condition which required my urgent intervention. Impression: 1. Acute chest pain 2. NSTEMI 3. History of hypertension Dispo: Admit to PCU This note was generated with Ifby[employer] dictation software. It may contain incorrect words, spelling, and punctuation that were not noted in review of the chart prior to signing. Lab Data Labs: Laboratory Results - last 24 hr 05/20/25 05/20/25 14:25 17:00 WBC 9.9 RBC 4.30 Hgb 13.3 Hct 40.0 MCV 93.0 MCH 30.9 MCHC 33.3 RDW Std Deviation 43.8 RDW Coeff of [place] 12.8 Plt Count 262 MPV 10.4 Immature Gran % (Auto) 0.300 Neut % (Auto) 60.8 Lymph % (Auto) 28.8 [place] % (Auto) 7.2 Eos % (Auto) 2.4 Baso % (Auto) 0.5 Absolute Neuts (auto) 6.0 Absolute Lymphs (auto) 2.84 Nucleated RBC % 0 PT 12.1 INR 0.9 APTT 27.6 D-Dimer Quant (PE/DVT) 0.27 Sodium 134 Potassium 3.4 Chloride 97 L Carbon Dioxide 24.3 Anion Gap 13 BUN 18 Creatinine 1.09 Estim Creat Clear Calc 32.48 L Est GFR (MDRD) Non-Af 50 L BUN/Creatinine Ratio 16.6 Glucose 130 H Calcium 9.5 Troponin T High Sens 105 H* Troponin T Hi Sens 2 Hr 153 H* NT pro BNP II 942 Radiography Diagnostic Testing: Clinical Impression(s) from Imaging Studies Chest X-Ray 05/20/25 14:58 IMPRESSION: No focal consolidations. Reading Location: [facility] Shoulder X-Ray 05/20/25 15:59 IMPRESSION: No acute osseous abnormality of the left shoulder. 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 Reading Location: [facility] Discharge Plan Triage Chief Complaint: Chest Pain ED Provider: Devin Piña Dx/Rx/DC Orders Primary Care Provider: Liane Stephenson
--- NOTE | 2025-05-20 14:00 | EKG12_ITS ---
Test Reason : CP Blood Pressure : */* mmHG Vent. 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
--- OUTSIDE RECORDS SUMMARY | 2025-05-20 14:44 | XMS RPT_ITS | CCD ---
Author Organization [facility] Care Team Providers Care Seniour Insight Manager Name Role Phone Dr. Liane Stephenson Primary Care Provider [phone] Fabrizio Maier Emergency Provider Jaqueline, Dr. Ignacia Farley Admit Provider Dr. Ignacia Parsons Attending Provider Dr. Ignacia Parsons Other Provider Dr. Rafa Morrow Attending Provider Dr. Rafa Morrow Other Provider Friend, Dr. Golden Attending Provider [phone] Rafa Morrow Referring Provider Dr. Liane Stephenson DO Primary Care Provider Dr. Liane Stephenson DO Attending Provider Dr. Liane Stephenson DO Referring Provider Liane Stephenson Referring Unavailable Malys, Liane Attending Unavailable Malys, Liane Primary Care Unavailable Malys, Liane Referring Unavailable Malys, Liane Attending Unavailable Malys, Liane Primary Care Unavailable Malys, Liane Primary Care Unavailable Arash Cruz Referring Unavailable Arash Cruz Attending Unavailable Malys, Liane Referring Unavailable Malys, Liane Attending Unavailable Malys, Liane Primary Care Unavailable Allergies Allergy Classification Reported Allergen(s) Allergy Type Date of Onset Reaction(s) Facility (15 sources) Aspirin Drug Allergy 07-01-2021 Unknown [facility] Comment on above: PT HAS HX OF MACULAR DEGENERATION (1 source) Aspirin Drug Allergy 12-29-2024 [facility] Repository Medications Current Medications Medication Drug Class(es) Dates Sig (Normalized) Sig (Original) atorvastatin 40 mg oral tablet (20 sources) HMG-CoA Reductase Inhibitor Start: 10-07-2022 take 1 tablet by mouth at bedtime Atorvastatin 40 MG tablet Active 40 mg PO AT BEDTIME October 07, 2022 6:34pm Start: 06-16-2019 End: 10-07-2022 Atorvastatin 40 MG tablet Discontinued 40 mg PO AT BEDTIME June 16, 2019 12:00am October 07, 2022 6:34pm Decrease to 20 mg daily if she gets myalgia or other side effects of statin Start: 12-17-2015 End: 06-16-2019 take 2 tablets by mouth once daily Atorvastatin 10 MG tablet Discontinued 20 mg PO DAILY December 17, 2015 1:00am June 16, 2019 11:18am Start: 12-17-2015 End: 06-16-2019 take 20 mg by mouth once daily Atorvastatin Discontinu ed 20 MG PO DAILY December 17, 2015 1:00am June 16, 2019 11:18am clopidogrel 75 mg oral tablet (20 sources) [id number] Platelet Inhibitor Start: 06-16-2019 End: 10-07-2022 take 1 tablet by mouth once daily Clopidogrel 75 MG tablet Active 75 mg PO DAILY October 07, 2022 6:34pm hydroCHLOROthiazide 25 mg oral tablet (15 sources) Thiazide Diuretic Start: 12-17-2015 Hydrochlorothiazide 25 MG tablet Active 12.5 mg PO DAILY December 17, 2015 1:00am Start: 12-17-2015 take 12.5 mg by mout h once daily Hydrochlorothiazide Active 12.5 MG PO DAILY December 17, 2015 1:00am meclizine hydrochloride 12.5 mg oral tablet (2 sources) Antiemetic Start: 06-01-2021 Meclizine Acti ve 12.5 MG PO .4 TIMES DAILY June 01, 2021 12:23pm trandolapril 4 mg oral tablet (15 sources) Angiotensin Converting Enzyme Inhibitor Start: 12-17-2015 take 1 tablet by mouth once daily Trandolapril (Mavik) 4 MG tablet Active 4 mg PO DAILY December 17, 2015 1:00am ursodiol 250 mg oral tablet (12 sources) Bile Acid Start: 10-09-2022 take 1 tablet by mouth twice daily Ursodiol 250 mg tablet Active 250 mg PO TWICE A DAY October 09, 2022 1:00am Completed/Discontinued Medications Medication Drug Class(es) Dates Sig (Normalized) Sig (Original) amoxicillin 875 mg / clavulanate 125 mg oral tablet (2 sources) Penicillin-class Antibacterial Start: 03-16-2024 End: 06-30-2024 Amoxicillin-Pot Clavulanate 875-125 mg tablet Discontinued 1 {tbl} PO TWICE A DAY March 16, 2024 8:45pm June 30, 2024 10:27am Start: 03-16-2024 take 1 tablet by aroldo th twice daily Amoxicillin-Pot Clavulanate Active 1 TABLET PO TWICE A DAY March 16, 2024 8:45pm diclofenac sodium 75 mg delayed release oral tablet (20 sources) Nonsteroidal Anti-inflammatory Drug Start: 06-15-2019 End: 06-16-2019 take 1 tablet by mouth twice daily at mealtime Diclofenac Sodium 75 MG tablet Discontinued 75 mg PO TWICE DAILY WITH MEALS June 15, 2019 12:00am June 16, 2019 11:19am Start: 12-17-2015 End: 01-01-2016 take 1 tablet by mouth twice daily Diclofenac Sodium 75 MG Tablet.Dr Discontinued 75 mg PO TWICE A DAY December 17, 2015 1:00am January 01, 2016 1:27pm Problems Active Problems Problem Classification Problem Date Documented Da te Episodic/Chronic Blindness and vision defects (15 sources) Visual disturbance; Translations: [Unspecified visual disturbance] 06-15-2019 Episodic Conditions associated with dizziness or vertigo (15 sources) Vertigo of central origin; Translations: [Vertigo of central origin] 06-09-2021 Episodic Disorders of lipid metabolism (15 sources) Hyperlipidemia; Translations: [Hyperlipidemia, unspecified] 05-31-2021 Chronic Essential hypertension (15 sources) Hypertensive disorder; Translations: [Essential (primary) hypertension] 05-31-2021 Chronic Nausea and vomiting (17 sources) Nausea and vomiting; Translations: [Nausea with vomiting, unspecified] Episodic Osteoporosis (1 source) Age-related osteoporosis without current pathological fracture; Translations: [Age-related osteoporosis without current pathological fracture] Onset: 01-11-2025 Chronic Other aftercare (1 source) Encounter for therapeutic drug level monitoring; Translations: [Encounter for therapeutic drug level monitoring] Onset: 04-13-2025 Episodic Other liver diseases (13 sources) Inflammatory disease of liver; Translations: [Inflammatory liver disease, unspecified] 10-17-2022 Chronic Other liver diseases (4 sources) Inflammatory liver disease, unspecified; Translations: [Hepatitis, unspecified] Chronic Other liver diseases (17 sources) Enzyme level - finding; Translations: [Elevated transaminase measurement] Episodic Other non-traumatic joint disorders (10 sources) Pain in wrist; Translations: [Pain in right wrist] 01-01-2023 Episodic Other nutritional; endocrine; and metabolic disorders (15 sources) Obesity; Translations: [Obesity, unspecified] 05-31-2021 Chronic Pancreatic disorders (not diabetes) (17 sources) Acute pancreatitis; Translations: [Acute pancreatitis without necrosis or infection, unspecified] Episodic Retinal detachments; defects; vascular occlusion; and retinopathy (15 sources) Degenerative disorder of macula ; Translations: [Unspecified macular degeneration] 05-31-2021 Chronic Past or Other Problems Problem Classification Problem Date Documented Da te Episodic/Chronic Abdominal pain (1 source) Lower abdominal pain, unspecified; Translations: [Lower abdominal pain, unspecified] Onset: 07-14-2024 Episodic Results Test Name Value Interpretation Reference Range Facility Absolute lymphocyte countOrd ered By: Liane Stephenson on 04-10-2025 Lymphocytes Auto (Unsp spec) [#/Vol] 2.21 10*3/uL 0.83-4.51 [facility] Absolute neutrophil countOrd ered By: Liane Stephenson on 04-10-2025 Neutrophils (Bld) [#/Vol] 4.4 10*3/uL 2.0-7.7 [facility] Anion gap in Serum or Plasma Ordered By: Liane Stephenson on 04-10-2025 Anion gap [Moles/Vol] 12 mmol/L 5-15 [facility] Automated lymphocyte count a s percentage of total leukocytesOrdered By: Liane Stephenson on 04-10-2025 Lymphocytes/100 WBC Auto (Unsp spec) 29.1 % 19-41 [facility] BUN/creatinine ratioOrdered By: Liane Stephenson on 04-10-2025 Urea nitrogen/Creatinine [Mass ratio] 19.2 mg/mg 10-20 [facility] Basophil percentageOrdered B y: Liane Stephenson on 04-10-2025 Basophils/100 WBC (Bld) 0.9 % 0-1 [facility] Bilirubin, totalOrdered By: Liane Stephenson on 04-10-2025 Bilirubin [Mass/Vol] 0.38 mg/dL 0.00-1.30 [facility] CBC W/Diff, Automatedon Absolute Lymph 2.21 X10 3/uL Normal 0.83-4.51 [facility] Comment on above: Performed By: #### L 500.4050, L500.4100, L100.0100 #### [facility] [address] [place], [address] Absolute Neut 4.4 X10 3/uL Normal 2.0-7.7 [facility] Comment on above: Performed By: #### L 500.4050, L500.4100, L100.0100 #### [facility] [address] [place], [address] Basophils/100 WBC (Bld) 0.9 % Normal 0-1 [facility] Comment on above: Performed By: #### L 500.4050, L500.4100, L100.0100 #### [facility] [address] [place], [address] Eosinophils/100 WBC (Bld) 3.4 % Normal 0-5 [facility] Comment on above: Performed By: #### L 500.4050, L500.4100, L100.0100 #### [facility] [address] [place], [address] Erythrocyte distribution width (RBC) [Ratio] 13.2 % Normal 11.6-14.6 [facility] Comment on above: Performed By: #### L 500.4050, L500.4100, L100.0100 #### [facility] [address] [place], [address] Hematocrit (Bld) [Volume fraction] 40.5 % Normal 37-47 [facility] Comment on above: Performed By: #### L 500.4050, L500.4100, L100.0100 #### [facility] [address] [place], [address] Hemoglobin (Bld) [Mass/Vol] 13.3 g/dL Normal 12.0-15.0 [facility] Comment on above: Performed By: #### L 500.4050, L500.4100, L100.0100 #### [facility] [address] [place], [address] IG% 0.100 Normal 0.0-0.9 [facility] Comment on above: Result Comment: IG% - Immature Granulocytes (promyelocytes, myelocytes and metamyelocytes) > 1% indicates that a LEFT SHIFT is Present. Performed By: #### L 500.4050, L500.4100, L100.0100 #### [facility] [address] [place], [address] Lymphocytes/100 WBC (Bld) 29.1 % Normal 19-41 [facility] Comment on above: Performed By: #### L 500.4050, L500.4100, L100.0100 #### [facility] [address] [place], [address] MCH (RBC) [Entitic mass] 30.9 pg Normal 27.0-32.0 [facility] Comment on above: Performed By: #### L 500.4050, L500.4100, L100.0100 #### [facility] [address] [place], [address] MCHC (RBC) [Mass/Vol] 32.8 g/dL Normal 32-36 [facility] Comment on above: Performed By: #### L 500.4050, L500.4100, L100.0100 #### [facility] [address] [place], [address] MCV (RBC) [Entitic vol] 94.2 fL Normal 81-99 [facility] Comment on above: Performed By: #### L 500.4050, L500.4100, L100.0100 #### [facility] [address] [place], [address] Monocytes/100 WBC (Bld) 8.6 % Normal 0-10 [facility] Comment on above: Performed By: #### L 500.4050, L500.4100, L100.0100 #### [facility] [address] [place], [address] Neutrophils/100 WBC (Bld) 57.9 % Normal 47-70 [facility] Comment on above: Performed By: #### L 500.4050, L500.4100, L100.0100 #### [facility] [address] [place], [address] Nucleated RBC (Bld) [#/Vol] 0 10*3/uL Normal 0-5 [facility] Comment on above: Performed By: #### L 500.4050, L500.4100, L100.0100 #### [facility] [address] [place], [address] Platelet mean volume (Bld) [Entitic vol] 9.7 fL Normal 6.2-12.0 [facility] Comment on above: Performed By: #### L 500.4050, L500.4100, L100.0100 #### [facility] [address] [place], [address] Platelets (Bld) [#/Vol] 316 10*3/uL Normal 150-450 [facility] Comment on above: Performed By: #### L 500.4050, L500.4100, L100.0100 #### [facility] [address] [place], [address] RBC (Bld) [#/Vol] 4.30 10*6/uL Normal 4.2-5.4 [facility] Comment on above: Performed By: #### L 500.4050, L500.4100, L100.0100 #### [facility] [address] [place], [address] RDW SD 45.0 fl High 35.1-43.9 [facility] Comment on above: Performed By: #### L 500.4050, L500.4100, L100.0100 #### [facility] [address] [place], [address] WBC (Bld) [#/Vol] 7.6 10*3/uL Normal 4.4-11.0 [facility] Comment on above: Performed By: #### L 500.4050, L500.4100, L100.0100 #### [facility] [address] [place], [address] Calculated very low density lipoprotein (VLDL) cholesterol measurementOrdered By: Liane Stephenson on 04-10-2025 Calculated very low density lipoprotein (VLDL) cholesterol measurement 19 mg/dL 5-40 [facility] Carbon dioxide, total [Moles /volume] in Central venous bloodOrdered By: Liane Stephenson on 04-10-2025 CO2 [Moles/Vol] 23.2 mmol/L 21.0-32.0 [facility] Chloride assayOrdered By: Radha Stephenson on 04-10-2025 Chloride [Moles/Vol] 105 mmol/L 98-108 [facility] Comprehensive Metabolic Prof ilon 04-10-2025 Albumin [Mass/Vol] 4.2 g/dL Normal 3.4-4.8 [facility] Comment on above: Performed By: #### L 500.4050, L500.4100, L100.0100 #### [facility] [address] [place], [address] Albumin/Globulin [Mass ratio] 1.5 {ratio} Normal 0.9-2.4 [facility] Comment on above: Performed By: #### L 500.4050, L500.4100, L100.0100 #### [facility] [address] [place], [address] ALK PHOS 61 U/L Normal 35-104 [facility] Comment on above: Performed By: #### L 500.4050, L500.4100, L100.0100 #### [facility] [address] [place], [address] ALT [Catalytic activity/Vol] 12 U/L Normal <=34 [facility] Comment on above: Performed By: #### L 500.4050, L500.4100, L100.0100 #### [facility] [address] [place], [address] AST [Catalytic activity/Vol] 24 U/L Normal <=31 [facility] Comment on above: Performed By: #### L 500.4050, L500.4100, L100.0100 #### [facility] [address] [place], [address] Bilirubin [Mass/Vol] 0.38 mg/dL Normal 0.00-1.30 [facility] Comment on above: Performed By: #### L 500.4050, L500.4100, L100.0100 #### [facility] [address] [place], [address] BUN/CRE 19.2 RATIO Normal 10-20 [facility] Comment on above: Performed By: #### L 500.4050, L500.4100, L100.0100 #### [facility] [address] [place], [address] Calcium [Mass/Vol] 9.0 mg/dL Normal 7.6-11.0 [facility] Comment on above: Performed By: #### L 500.4050, L500.4100, L100.0100 #### [facility] [address] [place], [address] Chloride [Moles/Vol] 105 mmol/L Normal 98-108 [facility] Comment on above: Performed By: #### L 500.4050, L500.4100, L100.0100 #### [facility] [address] [place], [address] CO2 [Moles/Vol] 23.2 mmol/L Normal 21.0-32.0 [facility] Comment on above: Performed By: #### L 500.4050, L500.4100, L100.0100 #### [facility] [address] [place], [address] Creatinine [Mass/Vol] 1.02 mg/dL Normal 0.70-1.20 [facility] Comment on above: Performed By: #### L 500.4050, L500.4100, L100.0100 #### [facility] [address] [place], [address] GAP 12 Normal 5-15 [facility] Comment on above: Performed By: #### L 500.4050, L500.4100, L100.0100 #### [facility] [address] [place], [address] GFR/1.73 sq M.predicted among non-blacks MDRD (S/P/Bld) [Vol rate/Area] 55 mL/min/{1.73_m2} Low >60 [facility] Comment on above: Result Comment: mL/m in/1.73m2 CKD-EPI Creatinine Equation (2020) Performed By: #### L 500.4050, L500.4100, L100.0100 #### [facility] [address] [place], [address] Globulin (S) [Mass/Vol] 2.9 g/dL Normal 2.2-4.[address] [facility] Comment on above: Performed By: #### L 500.4050, L500.4100, L100.0100 #### [facility] [address] [place], [address] Glucose [Mass/Vol] 91 mg/dL Normal 70-99 [facility] Comment on above: Performed By: #### L 500.4050, L500.4100, L100.0100 #### [facility] [address] [place], [address] Potassium [Moles/Vol] 4.0 mmol/L Normal 3.3-5.1 [facility] Comment on above: Performed By: #### L 500.4050, L500.4100, L100.0100 #### [facility] [address] [place], [address] Sodium [Moles/Vol] 140 mmol/L Normal 133-145 [facility] Comment on above: Performed By: #### L 500.4050, L500.4100, L100.0100 #### [facility] [address] [place], [address] T PROT 7.1 g/dL Normal 5.9-8.4 [facility] Comment on above: Performed By: #### L 500.4050, L500.4100, L100.0100 #### [facility] [address] [place], [address] Urea nitrogen [Mass/Vol] 20 mg/dL High 4-19 [facility] Comment on above: Performed By: #### L 500.4050, L500.4100, L100.0100 #### [facility] [address] [place], [address] Eosinophil percentageOrdered By: Liane Stephenson on 04-10-2025 Eosinophils/100 WBC (Bld) 3.4 % 0-5 [facility] Erythrocyte distribution wid th ratioOrdered By: Liane Stephenson on 04-10-2025 Erythrocyte distribution width (RBC) [Ratio] 13.2 % 11.6-14.6 [facility] Erythrocyte distribution wid th standard deviationOrdered By: Liane Stephenson on 04-10-2025 Erythrocyte distribution width (RBC) [Ratio] 45.0 fl High 35.1-43.9 [facility] Glomerular filtration rate ( GFR) estimation/1.73 sq m using serum, plasma, or whole bOrdered By: Liane Stephenson on 04-10-2025 GFR/1.73 sq M.predicted among non-blacks MDRD (S/P/Bld) [Vol rate/Area] 55 mL/min/{1.73_m2} Low >60 [facility] Comment on above: mL/min/1.73m2 CKD-EP I Creatinine Equation (2020) Hematocrit Auto (Bld) [Volum e fraction]Ordered By: Liane Stephenson on 04-10-2025 Hematocrit (Bld) [Volume fraction] 40.5 % 37-47 [facility] Hemoglobin measurementOrdere d By: Liane Stephenson on 04-10-2025 Hemoglobin (Bld) [Mass/Vol] 13.3 g/dL 12.0-15.0 [facility] Immature granulocytes/100 WB C Auto (Bld)Ordered By: Liane Stephenson on 04-10-2025 Immature granulocytes/100 WBC (Bld) 0.100 % 0.0-0.9 [facility] Comment on above: IG% - Immature Granu locytes (promyelocytes, myelocytes and metamyelocytes) > 1% indicates that a LEFT SHIFT is Present. LDL calc ser/plasOrdered By: Liane Stephenson on 04-10-2025 Cholesterol in LDL [Mass/Vol] 89 mg/dL [facility] Comment on above: Ltxuzblara=956-242 m g/dL & Higher Kwyb=860 mg/dL or greater Laboratory - Chemistry and C hemistry - challengeOrdered By: Liane Stephenson on 04-10-2025 AST [Catalytic activity/Vol] 24 U/L <32 [facility] Lipid Profileon 04-10-2025 CHOL:HDL 2.66 Normal [facility] Comment on above: Performed By: #### L 500.4050, L500.4100, L100.0100 #### [facility] [address] [place], [address] Cholesterol [Mass/Vol] 173 mg/dL Normal <=200 [facility] Comment on above: Result Comment: Chol esterol level, Desirable <200 mg/dL Borderline high cholesterol 200-239 mg/dL High cholesterol >=240 mg/dL Recommendations of the NCEP Adult Treatment Panel for the following risk-cutoff thresholds for the [place] population. Performed By: #### L 500.4050, L500.4100, L100.0100 #### [facility] [address] [place], [address] Cholesterol in HDL [Mass/Vol] 65 mg/dL Normal [facility] Comment on above: Result Comment: Francoise onal Cholesterol Education Program (NCEP) guidelines: <40 mg/dL: Low HDL-cholesterol (major risk factor for CHD) >= 60 mg/dL: High HDL-cholesterol (negative risk factor for CHD) HDL-cholesterol is affected by a number of factors, e.g. smoking, exercise, hormones, sex and age. Performed By: #### L 500.4050, L500.4100, L100.0100 #### [facility] [address] [place], [address] Cholesterol in LDL [Mass/Vol] 89 mg/dL Normal [facility] Comment on above: Result Comment: Bord yapain=881-454 mg/dL Higher Gnro=497 mg/dL or greater Performed By: #### L 500.4050, L500.4100, L100.0100 #### [facility] [address] [place], [address] Cholesterol in VLDL [Mass/Vol] 19 mg/dL Normal 5-40 [facility] Comment on above: Performed By: #### L 500.4050, L500.4100, L100.0100 #### [facility] [address] [place], [address] Triglyceride [Mass/Vol] 95 mg/dL Normal [facility] Comment on above: Result Comment: The drugs N-Acetylcysteine and Metamizole may falsely depress this assay. Normal range: <150 mg/dL Borderline High: 150-199 mg/dL High: 200-499 mg/dL Very High: >500 mg/dL Performed By: #### L 500.4050, L500.4100, L100.0100 #### [facility] [place], [address] MCV (mean corpuscular volume ) determinationOrdered By: Liane Stephenson on 04-10-2025 MCV (RBC) [Entitic vol] 94.2 fL 81-[address] [facility] Mean corpuscular hemoglobin (MCH) determinationOrdered By: Liane Stephenson on 04-10-2025 MCH (RBC) [Entitic mass] 30.9 pg 27.0-32.0 [facility] Mean corpuscular hemoglobin concentration (MCHC) determinationOrdered By: Liane Stephenson on 04-10-2025 MCHC (RBC) [Mass/Vol] 32.8 g/dL 32-36 [facility] Mean platelet volume determi nationOrdered By: Liane Stephenson on 04-10-2025 Platelet mean volume (Bld) [Entitic vol] 9.7 fL 6.2-12.0 [facility] Monocyte percentageOrdered B y: Liane Stephenson on 04-10-2025 Monocytes/100 WBC (Bld) 8.6 % 0-[address] [facility] Neutrophil percentageOrdered By: Liane Stephenson on 04-10-2025 Neutrophils/100 WBC (Bld) 57.9 % 47-70 [facility] Nucleated red blood cell per centageOrdered By: Liane Stephenson on 04-10-2025 Nucleated RBC/100 WBC (Bld) [Ratio] 0 % 0-5 [facility] Platelet countOrdered By: Radha Stephenson on 04-10-2025 Platelets (Bld) [#/Vol] 316 10*3/uL 150-450 [facility] Potassium measurement (mass/ volume)Ordered By: Liane Stephenson on 04-10-2025 Potassium (Unsp spec) [Mass/Vol] 4.0 mmol/L 3.3-5.1 [facility] RBC Auto (Bld) [#/Vol]Ordere d By: Liane Stephenson on 04-10-2025 RBC (Bld) [#/Vol] 4.30 10*6/uL 4.2-5.4 [facility] Screening total cholesterol/ high density lipoprotein (HDL) cholesterol ratioOrdered By: Liane Stephenson on 04-10-2025 Cholesterol.total/Choles terol in HDL [Mass ratio] 2.66 {ratio} [facility] Serum creatinine measurement (mass/volume)Ordered By: Liane Stephenson on 04-10-2025 Creatinine [Mass/Vol] 1.02 mg/dL 0.70-1.20 [facility] Serum globulin measurementOr dered By: Liane Stephenson on 04-10-2025 Globulin (S) [Mass/Vol] 2.9 g/dL 2.2-4.2 [facility] Serum glucose measurement (m ass/volume)Ordered By: Liane Stephenson on 04-10-2025 Glucose [Mass/Vol] 91 mg/dL 70-99 [facility] Serum or plasma alanine núñez otransferase (ALT) measurementOrdered By: Liane Stephenson on 04-10-2025 ALT [Catalytic activity/Vol] 12 U/L <35 [facility] Serum or plasma albumin osmel urement (mass/volume)Ordered By: Liane Stephenson on 04-10-2025 Albumin [Mass/Vol] 4.2 g/dL 3.4-4.8 [facility] Serum or plasma albumin/glob ulin mass ratioOrdered By: Liane Stephenson on 04-10-2025 Albumin/Globulin [Mass ratio] 1.5 {ratio} 0.9-2.4 [facility] Serum or plasma alkaline lee ann sphatase measurementOrdered By: Liane Stephenson on 04-10-2025 ALP [Catalytic activity/Vol] 61 U/L 35-104 [facility] Serum or plasma calcium osmel urement (mass/volume)Ordered By: Liane Stephenson on 04-10-2025 Calcium [Mass/Vol] 9.0 mg/dL 7.6-11.0 [facility] Serum or plasma cholesterol in HDL measurement (mass/volume)Ordered By: Liane Stephenson on 04-10-2025 Cholesterol in HDL [Mass/Vol] 65 mg/dL >40 [facility] Comment on above: National Cholesterol Education Program (NCEP) guidelines:<40 mg/dL: Low HDL-cholesterol (major risk factor for CHD)>= 60 mg/dL: High HDL-cholesterol (negative risk factor for CHD)HDL-cholesterol is affected by a number of factors, e.g. smoking, exercise, hormones, sex and age. Serum or plasma cholesterol measurement (mass/volume)Ordered By: Liane Stephenson on 04-10-2025 Cholesterol [Mass/Vol] 173 mg/dL <201 [facility] Comment on above: Cholesterol level, D esirable <200 mg/dLBorderline high cholesterol 200-239 mg/dLHigh cholesterol >=240 mg/dLRecommendations of the NCEP Adult Treatment Panel for the following risk-cutoff thresholds for the [place] population. Serum or plasma urea nitroge n measurement (mass/volume)Ordered By: Liane Stephenson on 04-10-2025 Urea nitrogen [Mass/Vol] 20 mg/dL High 4-19 [facility] Sodium levelOrdered By: Liane Stephenson on 04-10-2025 Sodium [Moles/Vol] 140 mmol/L 133-145 [facility] Total proteinOrdered By: Roula Stephenson on 04-10-2025 Protein [Mass/Vol] 7.1 g/dL 5.9-8.4 [facility] Triglycerides measurementOrd ered By: Liane Stephenson on 04-10-2025 Triglyceride [Mass/Vol] 95 mg/dL <199 [facility] Comment on above: The drugs N-Acetylcy steine and Metamizole may falsely depress this assay. Normal range: <150 mg/dLBorderline High: 150-199 mg/dLHigh: 200-499 mg/dLVery High: >500 mg/dL White blood cell (WBC) count Ordered By: Liane Stephenson on 04-10-2025 WBC (Bld) [#/Vol] 7.6 10*3/uL 4.4-11.0 [facility] HIP, UNI W/ Pelvis 2-3 Views on 08-12-2024 HIP, UNI W/ Pelvis 2-3 Views [facility] Imaging Services [address] [place] [address] HIP, UNI W/ Pelvis 2-3 Views MR#: [id number] Acct: [id number] Name: MELYSSA MATA Rep #: [id number] : 1940 F 83 From: Hair mattson MD PCP: Dr. Liane Stephenson DO Status: REG CLI Study: HIP, UNI W/ Pelvis 2-3 Views Date of Exam: 10/31 Exam# [id number] Ordering [place]: [place] [id number] STUDY: X-RAY - PELVIS AND RIGHT HIP [...] Arash Cruz MD; Dr. 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 Normal [facility] Absolute lymphocyte countOrd ered By: Carlene Arriaga on 12-08-2023 Lymphocytes Auto (Unsp spec) [#/Vol] 2.17 10*3/uL 0.83-4.51 [facility] Automated lymphocyte count a s percentage of total leukocytesOrdered By: Carlene Arriaga on 12-08-2023 Lymphocytes/100 WBC Auto (Unsp spec) 22.1 % 19-41 [facility] Basophil percentageOrdered B y: Carlene Arriaga on 12-08-2023 Basophils/100 WBC (Bld) 0.5 % 0-1 [facility] Bilirubin [Mass/Vol] 0.40 mg/dL 0.20-1.00 [facility] Comment on above: For patients on eltr ombopag therapy, use of Dimension [place] TBIL is not recommended. Chloride [Moles/Vol] 105 mmol/L 98-107 [facility] Eosinophils/100 WBC (Bld) 0.7 % 0-5 [facility] Glucose [Mass/Vol] 118 mg/dL 74-106 [facility] Comment on above: Fasting Glucose resu lt from 100 to 125 mg/dL suggests IMPAIRED HOMEOSTASIS per A.D.A. criteria. Hemoglobin (Bld) [Mass/Vol] 12.3 g/dL 12.0-15.0 [facility] Monocytes/100 WBC (Bld) 8.7 % 0-[address] [facility] Neutrophils (Bld) [#/Vol] 6.6 10*3/uL 2.0-7.7 [facility] Neutrophils/100 WBC (Bld) 67.7 % 47-70 [facility] Potassium [Moles/Vol] 4.0 mmol/L 3.5-5.1 [facility] Protein [Mass/Vol] 6.9 g/dL 6.4-8.2 [facility] Sodium [Moles/Vol] 136 mmol/L 136-145 [facility] WBC (Bld) [#/Vol] 9.8 10*3/uL 4.4-11.0 [facility] Determination of erythrocyte mean corpuscular volume (MCV)Ordered By: Carlene Arriaga on 12-08-2023 MCV (RBC) [Entitic vol] 97.9 fL 81-[address] [facility] Erythrocyte distribution wid th ratioOrdered By: Carlene Arriaga on 12-08-2023 Erythrocyte distribution width (RBC) [Ratio] 13.1 % 11.6-14.6 [facility] Erythrocyte distribution wid th standard deviationOrdered By: Carlene Arriaga on 12-08-2023 Erythrocyte distribution width (RBC) [Entitic vol] 47.0 fL 35.1-43.9 [facility] Erythrocyte sedimentation ra teOrdered By: Carlenefredy Arriaga on 12-08-2023 ESR (Bld) [Velocity] 16 mm/h 0-30 [facility] Hematocrit Auto (Bld) [Volum e fraction]Ordered By: Carlene Arriaga on 12-08-2023 Hematocrit (Bld) [Volume fraction] 38.2 % 37-47 [facility] Immature granulocytes/100 WB C Auto (Bld)Ordered By: Cahone Bart on 12-08-2023 Immature granulocytes/100 WBC (Bld) 0.300 % 0.0-0.9 [facility] Comment on above: IG% - Immature Granu locytes (promyelocytes, myelocytes and metamyelocytes) > 1% indicates that a LEFT SHIFT is Present. Laboratory - Chemistry and C hemistry - challengeOrdered By: Carlenefredy Arriaga on 12-08-2023 Albumin/Globulin [Mass ratio] 1.0 {ratio} 0.9-2.4 [facility] ALP [Catalytic activity/Vol] 54 U/L 45-117 [facility] ALT [Catalytic activity/Vol] 18 U/L 13-56 [facility] CO2 [Moles/Vol] 26.0 mmol/L 21.0-32.0 [facility] Globulin (S) [Mass/Vol] 3.5 g/dL 2.2-4.[address] [facility] Urea nitrogen/Creatinine [Mass ratio] 20.6 mg/mg 10-20 [facility] Laboratory - Hematology and Cell countsOrdered By: Carlenefredy Arriaga on 12-08-2023 MCH (RBC) [Entitic mass] 31.5 pg 27.0-32.0 [facility] MCHC (RBC) [Mass/Vol] 32.2 g/dL 32-36 [facility] Nucleated RBC/100 WBC (Bld) [Ratio] 0 % 0-5 [facility] Platelets (Bld) [#/Vol] 264 10*3/uL 150-450 [facility] No Panel InformationOrdered By: Carlene Arraiga on 12-08-2023 C-Reactive Protein Extended Range < 2.90 mg/L 0.0-3.0 [facility] Comment on above: C-Reactive Protein ( CRP) provides useful information for thediagnosis, therapy and monitoring of inflammatory processesand associated diseases. For the evaluation of Relative Riskfor Cardiovascular Disease, a High Sensitivity CRP (HSCRP)should be ordered. D-Dimer Quantitative (PE/DVT) < 0.27 FEU/ug/m 0.27-0.49 [facility] Comment on above: NORMAL D-Dimer level (<0.50) indicates no DVT or PE. Estimated GFR (MDRD) Amer 75 mL/min >60 [facility] Comment on above: GFR Calc Estimated GFR (MDRD) Non-Af Amer 62 mL/min >60 [facility] Comment on above: Non- GFR Calc Platelet mean volume [place]-[facility] (Bld) [Entitic vol]Ordered By: Carlene Arriaga on 12-08-2023 Platelet mean volume (Bld) [Entitic vol] 10.1 fL 6.2-12.0 [facility] RBC Auto (Bld) [#/Vol]Ordere d By: Carlene Arriaga on 12-08-2023 RBC (Bld) [#/Vol] 3.90 10*6/uL 4.2-5.4 [facility] Serum or plasma calcium osmel urement (mass/volume)Ordered By: Carlene Arriaga on 12-08-2023 Calcium [Mass/Vol] 9.1 mg/dL 8.5-10.1 [facility] Serum or plasma creatinine m easurement (mass/volume)Ordered By: Carlene Arriaga on 12-08-2023 Creatinine [Mass/Vol] 0.92 mg/dL 0.55-1.02 [facility] Comment on above: The validity of the calculated GFR & GFRAA in patients over 70 years has not been determined. Clinical correlation is essential. Serum or plasma urea nitroge n measurement (mass/volume)Ordered By: Carlene Arriaga on 12-08-2023 Urea nitrogen [Mass/Vol] 19 mg/dL 7-18 [facility] Thin prep Papanicolaou smear with manual screeningOrdered By: Carlene Arriaga on 12-08-2023 Thin prep Papanicolaou smear with manual screening 3.4 g/dL 3.2-5.0 [facility] Thin prep Papanicolaou smear with manual screening 15 U/L 15-37 [facility] Thin prep Papanicolaou smear with manual screening 5 5-15 [facility] Basophil percentageOrdered B y: Liane Stephenson on 03-24-2023 Bilirubin [Mass/Vol] 0.30 mg/dL 0.20-1.00 [facility] Comment on above: For patients on eltr ombopag therapy, use of Dim[place] TBIL is not recommended. Chloride [Moles/Vol] 108 mmol/L 98-107 [facility] Glucose [Mass/Vol] 84 mg/dL 74-106 [facility] Potassium [Moles/Vol] 4.0 mmol/L 3.5-5.1 [facility] Protein [Mass/Vol] 7.3 g/dL 6.4-8.2 [facility] Sodium [Moles/Vol] 141 mmol/L 136-145 [facility] Laboratory - Chemistry and C hemistry - challengeOrdered By: Liane Stephenson on 03-24-2023 ALP [Catalytic activity/Vol] 76 U/L 45-117 [facility] ALT [Catalytic activity/Vol] 24 U/L 13-56 [facility] CO2 [Moles/Vol] 27.0 mmol/L 21.0-32.0 [facility] Globulin (S) [Mass/Vol] 3.9 g/dL 2.2-4.[address] [facility] Urea nitrogen/Creatinine [Mass ratio] 23.3 mg/mg 10-20 [facility] No Panel InformationOrdered By: Liane Stephenson on 03-24-2023 Estimated GFR (MDRD) Amer 66 mL/min >60 [facility] Comment on above: GFR Calc Estimated GFR (MDRD) Non-Af Amer 55 mL/min >60 [facility] Comment on above: Non- GFR Calc Serum or plasma albumin osmel urement (mass/volume)Ordered By: Liane Stephenson on 05-17-2023 Albumin [Mass/Vol] 3.4 g/dL 3.2-5.0 [facility] Serum or plasma albumin/glob ulin mass ratioOrdered By: Liane Stephenson on 03-24-2023 Albumin/Globulin [Mass ratio] 0.9 {ratio} 0.9-2.4 [facility] Serum or plasma calcium osmel urement (mass/volume)Ordered By: Liane Stephenson on 03-24-2023 Calcium [Mass/Vol] 9.4 mg/dL 8.5-10.1 [facility] Serum or plasma creatinine m easurement (mass/volume)Ordered By: Liane Stephenson on 03-24-2023 Creatinine [Mass/Vol] 1.03 mg/dL 0.55-1.02 [facility] Comment on above: The validity of the calculated GFR & GFRAA in patients over 70 years has not been determined. Clinical correlation is essential. Serum or plasma urea nitroge n measurement (mass/volume)Ordered By: Liane Stephenson on 03-24-2023 Urea nitrogen [Mass/Vol] 24 mg/dL 7-18 [facility] Serum or plasma uric acid me asurement (mass/volume)Ordered By: Liane Stephenson on 03-24-2023 Urate [Mass/Vol] 5.8 mg/dL 2.6-6.0 [facility] Comment on above: The drugs N-Acetylcy steine and Metamizole may falsely depress this assay. Thin prep Papanicolaou smear with manual screeningOrdered By: Liane Stephenson on 03-24-2023 Thin prep Papanicolaou smear with manual screening 24 U/L 15-37 [facility] Thin prep Papanicolaou smear with manual screening 6 5-15 [facility] Basophil percentageOrdered B y: Dr. Stephenson on 02-08-2023 Bilirubin [Mass/Vol] 0.30 mg/dL 0.20-1.00 [facility] Comment on above: For patients on eltr ombopag therapy, use of Dim[place] TBIL is not recommended. Chloride [Moles/Vol] 109 mmol/L 98-107 [facility] Glucose [Mass/Vol] 93 mg/dL 74-106 [facility] Potassium [Moles/Vol] 4.4 mmol/L 3.5-5.1 [facility] Protein [Mass/Vol] 7.8 g/dL 6.4-8.2 [facility] Sodium [Moles/Vol] 141 mmol/L 136-145 [facility] Erythrocyte sedimentation ra teOrdered By: Dr. Stephenson on 02-08-2023 ESR (Bld) [Velocity] 15 mm/h 0-30 [facility] Laboratory - Chemistry and C hemistry - challengeOrdered By: Dr. Stephenson on 02-08-2023 ALP [Catalytic activity/Vol] 49 U/L 45-117 [facility] ALT [Catalytic activity/Vol] 21 U/L 13-56 [facility] CO2 [Moles/Vol] 26.0 mmol/L 21.0-32.0 [facility] Globulin (S) [Mass/Vol] 4.2 g/dL 2.2-4.[address] [facility] Urea nitrogen/Creatinine [Mass ratio] 17.6 mg/mg 10-20 [facility] No Panel InformationOrdered By: Dr. Stephenson on 02-08-2023 Estimated GFR (MDRD) Amer 67 mL/min >60 [facility] Comment on above: GFR Calc Estimated GFR (MDRD) Non-Af Amer 55 mL/min >60 [facility] Comment on above: Non- GFR Calc Serum or plasma C reactive p rotein measurement (mass/volume)Ordered By: Dr. Stephenson on 02-08-2023 CRP [Mass/Vol] mg/L 0.0-3.0 [facility] Comment on above: C-Reactive Protein ( CRP) provides useful information for thediagnosis, therapy and monitoring of inflammatory processesand associated diseases. For the evaluation of Relative Riskfor Cardiovascular Disease, a High Sensitivity CRP (HSCRP)should be ordered. Serum or plasma albumin osmel urement (mass/volume)Ordered By: Dr. Stephenson on 02-08-2023 Albumin [Mass/Vol] 3.6 g/dL 3.2-5.0 [facility] Serum or plasma albumin/glob ulin mass ratioOrdered By: Dr. Stephenson on 02-08-2023 Albumin/Globulin [Mass ratio] 0.9 {ratio} 0.9-2.4 [facility] Serum or plasma calcium osmel urement (mass/volume)Ordered By: Dr. Stephenson on 02-08-2023 Calcium [Mass/Vol] 9.5 mg/dL 8.5-10.1 [facility] Serum or plasma creatinine m easurement (mass/volume)Ordered By: Dr. Stephenson on 02-08-2023 Creatinine [Mass/Vol] 1.02 mg/dL 0.55-1.02 [facility] Comment on above: The validity of the calculated GFR & GFRAA in patients over 70 years has not been determined. Clinical correlation is essential. Serum or plasma urea nitroge n measurement (mass/volume)Ordered By: Dr. Stephenson on 02-08-2023 Urea nitrogen [Mass/Vol] 18 mg/dL 7-18 [facility] Serum or plasma uric acid me asurement (mass/volume)Ordered By: Dr. Stephenson on 02-08-2023 Urate [Mass/Vol] 6.6 mg/dL 2.6-6.0 [facility] Comment on above: The drugs N-Acetylcy steine and Metamizole may falsely depress this assay. Thin prep Papanicolaou smear with manual screeningOrdered By: Dr. Stephenson on 02-08-2023 Thin prep Papanicolaou smear with manual screening 23 U/L 15-37 [facility] Thin prep Papanicolaou smear with manual screening 6 5-15 [facility] Absolute lymphocyte countOrd ered By: Dr. Pugh on 01-01-2023 Lymphocytes Auto (Unsp spec) [#/Vol] 3.29 10*3/uL 0.83-4.51 [facility] Basophil percentageOrdered B y: Dr. Pugh on 01-01-2023 Basophils/100 WBC (Bld) 0.7 % 0-1 [facility] Eosinophils/100 WBC (Bld) 2.7 % 0-5 [facility] Neutrophils (Bld) [#/Vol] 4.6 10*3/uL 2.0-7.7 [facility] Neutrophils/100 WBC (Bld) 50.4 % 47-70 [facility] WBC (Bld) [#/Vol] 9.0 10*3/uL 4.4-11.0 [facility] Blood erythrocytes count (nu mber/volume)Ordered By: Dr. Pugh on 01-01-2023 RBC (Bld) [#/Vol] 4.59 10*6/uL 4.2-5.4 [facility] Blood hemoglobin measurement (mass/volume)Ordered By: Dr. Pugh on 01-01-2023 Hemoglobin (Bld) [Mass/Vol] 13.9 g/dL 12.0-15.0 [facility] Blood lymphocytes/100 leukoc ytesOrdered By: Dr. Pugh on 01-01-2023 Lymphocytes/100 WBC (Bld) 36.5 % 19-41 [facility] Blood monocytes/100 leukocyt esOrdered By: Dr. Pugh on 01-01-2023 Monocytes/100 WBC (Bld) 9.6 % 0-10 [facility] Blood platelet mean volumeOr dered By: Dr. Pugh on 01-01-2023 Platelet mean volume (Bld) [Entitic vol] 9.6 fL 6.2-12.0 [facility] Determination of erythrocyte mean corpuscular volume (MCV)Ordered By: Dr. Pugh on 01-01-2023 MCV (RBC) [Entitic vol] 92.8 fL 81-99 [facility] Hematocrit Auto (Bld) [Volum e fraction]Ordered By: Dr. Pugh on 01-01-2023 Hematocrit (Bld) [Volume fraction] 42.6 % 37-47 [facility] Laboratory - Hematology and Cell countsOrdered By: Dr. Pugh on 01-01-2023 Erythrocyte distribution width (RBC) [Entitic vol] 44.2 fL 35.1-43.9 [facility] Erythrocyte distribution width (RBC) [Ratio] 12.9 % 11.6-14.6 [facility] Immature granulocytes/100 WBC (Bld) 0.100 % 0.0-0.9 [facility] Comment on above: IG% - Immature Granu locytes (promyelocytes, myelocytes and metamyelocytes) > 1% indicates that a LEFT SHIFT is Present. MCH (RBC) [Entitic mass] 30.3 pg 27.0-32.0 [facility] Nucleated RBC/100 WBC (Bld) [Ratio] 0 % 0-5 [facility] MCHC Auto (RBC) [Mass/Vol]Or dered By: Dr. Pugh on 01-01-2023 MCHC (RBC) [Mass/Vol] 32.6 g/dL 32-36 [facility] No Panel InformationOrdered By: Dr. Pugh on 01-01-2023 D-Dimer Quantitative (PE/DVT) 0.36 FEU/ug/m 0.27-0.49 [facility] Comment on above: NORMAL D-Dimer level (<0.50) indicates no DVT or PE. Platelets bldOrdered By: Dr. Pugh on 01-01-2023 Platelets (Bld) [#/Vol] 258 10*3/uL 150-450 [facility] Basophil percentageOrdered B y: Dr. Stephenson on 10-14-2022 Bilirubin [Mass/Vol] 0.40 mg/dL 0.20-1.00 [facility] Comment on above: For patients on eltr ombopag therapy, use of Dim[place] TBIL is not recommended. Protein [Mass/Vol] 7.3 g/dL 6.4-8.2 [facility] Direct bilirubinOrdered By: Dr. Stephenson on 10-14-2022 Bilirubin.direct [Mass/Vol] 0.11 mg/dL 0.00-0.30 [facility] Laboratory - Chemistry and C hemistry - challengeOrdered By: Dr. Stephenson on 10-14-2022 ALP [Catalytic activity/Vol] 86 U/L 45-117 [facility] ALT [Catalytic activity/Vol] 174 U/L 13-56 [facility] Globulin (S) [Mass/Vol] 3.9 g/dL 2.2-4.[address] [facility] Serum or plasma albumin osmel urement (mass/volume)Ordered By: Dr. Setphenson on 10-14-2022 Albumin [Mass/Vol] 3.4 g/dL 3.2-5.0 [facility] Thin prep Papanicolaou smear with manual screeningOrdered By: Dr. Stephenson on 10-14-2022 Thin prep Papanicolaou smear with manual screening 32 U/L 15-37 [facility] Basophil percentageOrdered B y: Dr. Morrow on 10-09-2022 Bilirubin [Mass/Vol] 0.50 mg/dL 0.20-1.00 [facility] Comment on above: For patients on eltr ombopag therapy, use of Dim[place] TBIL is not recommended. Protein [Mass/Vol] 5.5 g/dL 6.4-8.2 [facility] Direct bilirubinOrdered By: Dr. Morrow on 10-09-2022 Bilirubin.direct [Mass/Vol] 0.16 mg/dL 0.00-0.30 [facility] Laboratory - Chemistry and C hemistry - challengeOrdered By: Dr. Morrow on 10-09-2022 ALP [Catalytic activity/Vol] 91 U/L 45-117 [facility] ALT [Catalytic activity/Vol] 518 U/L 13-56 [facility] Globulin (S) [Mass/Vol] 3.1 g/dL 2.2-4.2 [facility] Serum or plasma albumin osmel urement (mass/volume)Ordered By: Dr. Morrow on 10-09-2022 Albumin [Mass/Vol] 2.4 g/dL 3.2-5.0 [facility] Thin prep Papanicolaou smear with manual screeningOrdered By: Dr. Morrow on 10-09-2022 Thin prep Papanicolaou smear with manual screening 185 U/L 15-37 [facility] Absolute lymphocyte countOrd ered By: Dr. Parsons on 10-08-2022 Lymphocytes Auto (Unsp spec) [#/Vol] 2.75 10*3/uL 0.83-4.51 [facility] Basophil percentageOrdered B y: Dr. Parsons on 10-08-2022 Basophils/100 WBC (Bld) 0.3 % 0-1 [facility] Chloride [Moles/Vol] 109 mmol/L 98-107 [facility] Cholesterol [Mass/Vol] 135 mg/dL <200 [facility] Comment on above: <200 mg/dL Desirable 200-240 mg/dL Borderline >240 mg/dL High Risk Eosinophils/100 WBC (Bld) 2.6 % 0-5 [facility] Glucose [Mass/Vol] 83 mg/dL 74-106 [facility] Neutrophils (Bld) [#/Vol] 7.0 10*3/uL 2.0-7.7 [facility] Neutrophils/100 WBC (Bld) 64.6 % 47-70 [facility] Potassium [Moles/Vol] 3.7 mmol/L 3.5-5.1 [facility] Sodium [Moles/Vol] 142 mmol/L 136-145 [facility] Triglyceride [Mass/Vol] 131 mg/dL <199 [facility] Comment on above: The drugs N-Acetylcy steine and Metamizole may falsely depress this assay.Serum Triglycerides Reference Interval Normal <150 mg/dL Borderline high 150 - 199 mg/dL High 200 - 499 mg/dL Very High > or = 500 mg/dL WBC (Bld) [#/Vol] 10.9 10*3/uL 4.4-11.0 [facility] Blood erythrocytes count (nu mber/volume)Ordered By: Dr. Parsons on 10-08-2022 RBC (Bld) [#/Vol] 4.25 10*6/uL 4.2-5.4 [facility] Blood hemoglobin measurement (mass/volume)Ordered By: Dr. Parsons on 10-08-2022 Hemoglobin (Bld) [Mass/Vol] 12.8 g/dL 12.0-15.0 [facility] Blood lymphocytes/100 leukoc ytesOrdered By: Dr. Parsons on 10-08-2022 Lymphocytes/100 WBC (Bld) 25.3 % 19-41 [facility] Blood monocytes/100 leukocyt esOrdered By: Dr. Parsons on 10-08-2022 Monocytes/100 WBC (Bld) 6.7 % 0-[address] [facility] Blood platelet mean volumeOr dered By: Dr. Parsons on 10-08-2022 Platelet mean volume (Bld) [Entitic vol] 9.7 fL 6.2-12.0 [facility] Determination of erythrocyte mean corpuscular volume (MCV)Ordered By: Dr. Parsons on 10-08-2022 MCV (RBC) [Entitic vol] 93.6 fL 81-[address] [facility] Hematocrit Auto (Bld) [Volum e fraction]Ordered By: Dr. Parsons on 10-08-2022 Hematocrit (Bld) [Volume fraction] 39.8 % 37-47 [facility] - Chemistry and C hemistry - challengeOrdered By: Dr. Parsons on 10-08-2022 CO2 [Moles/Vol] 26.0 mmol/L 21.0-32.0 [facility] Lipase [Catalytic activity/Vol] 190 U/L 73-393 [facility] Urea nitrogen/Creatinine [Mass ratio] 19.5 mg/mg 10-20 [facility] - Hematology and Cell countsOrdered By: Dr. Parsons on 10-08-2022 Erythrocyte distribution width (RBC) [Entitic vol] 45.7 fL 35.1-43.9 [facility] Erythrocyte distribution width (RBC) [Ratio] 13.4 % 11.6-14.6 [facility] Immature granulocytes/100 WBC (Bld) 0.500 % 0.0-0.9 [facility] Comment on above: IG% - Immature Granu locytes (promyelocytes, myelocytes and metamyelocytes) > 1% indicates that a LEFT SHIFT is Present. MCH (RBC) [Entitic mass] 30.1 pg 27.0-32.0 [facility] Nucleated RBC/100 WBC (Bld) [Ratio] 0.2 % 0-5 [facility] MCHC Auto (RBC) [Mass/Vol]Or dered By: Dr. Parsons on 10-08-2022 MCHC (RBC) [Mass/Vol] 32.2 g/dL 32-36 [facility] No Panel InformationOrdered By: Dr. Parsons on 10-08-2022 Estimated Creatinine Clearance Calc 54.09 ml/min [facility] Estimated GFR (MDRD) Amer 86 mL/min >60 [facility] Comment on above: GFR Calc Estimated GFR (MDRD) Non-Af Amer 71 mL/min >60 [facility] Comment on above: Non- GFR Calc Platelets bldOrdered By: Dr. Parsosn on 10-08-2022 Platelets (Bld) [#/Vol] 319 10*3/uL 150-450 [facility] Serum or plasma albumin/glob ulin mass ratioOrdered By: Dr. Parsons on 10-08-2022 Albumin/Globulin [Mass ratio] 0.8 {ratio} 0.9-2.4 [facility] Serum or plasma calcium osmel urement (mass/volume)Ordered By: Dr. Parsons on 10-08-2022 Calcium [Mass/Vol] 7.8 mg/dL 8.5-10.1 [facility] Serum or plasma cholesterol in HDL measurement (mass/volume)Ordered By: Dr. Parsons on 10-08-2022 Cholesterol in HDL [Mass/Vol] 52 mg/dL >40 [facility] Comment on above: The drugs N-Acetylcy steine and Metamizole may falsely depress this assay. Reference Range HDL <40 mg/dL Low HDL Cholesterol HDL >or= 60 mg/dL High HDL Cholesterol Serum or plasma cholesterol in VLDL measurement (mass/volume)Ordered By: Dr. Parsons on 10-08-2022 Cholesterol in VLDL [Mass/Vol] 26 mg/dL 5-40 [facility] Serum or plasma creatinine m easurement (mass/volume)Ordered By: Dr. Parsons on 10-08-2022 Creatinine [Mass/Vol] 0.82 mg/dL 0.55-1.02 [facility] Comment on above: The validity of the calculated GFR & GFRAA in patients over 70 years has not been determined. Clinical correlation is essential. Serum or plasma low density lipoprotein (LDL) cholesterol measurement (mass/volume)Ordered By: Dr. Parsons on 10-08-2022 Cholesterol in LDL [Mass/Vol] 57 mg/dL 0-130 [facility] Serum or plasma urea nitroge n measurement (mass/volume)Ordered By: Dr. Parsons on 10-08-2022 Urea nitrogen [Mass/Vol] 16 mg/dL 7-18 [facility] Thin prep Papanicolaou smear with manual screeningOrdered By: Dr. Parsons on 10-08-2022 Thin prep Papanicolaou smear with manual screening 7 5-15 [facility] Absolute lymphocyte counton 10-07-2022 Lymphocytes Auto (Unsp spec) [#/Vol] 1.76 10*3/uL 0.83-4.51 [facility] Work Phone: Acetaminophen level (mass/vo lume)Ordered By: Dr. Maier on 10-07-2022 Acetaminophen (Unsp spec) [Mass/Vol] < 2.0 ug/mL 10.0-30.0 [facility] Basophil percentageon 2021 Basophils/100 WBC (Bld) 0.3 % 0-1 [facility] Work Phone: Bilirubin [Mass/Vol] 1.10 mg/dL 0.20-1.00 [facility] Work Phone: Comment on above: For patients on eltr ombopag therapy, use of Dimension [place] TBIL is not recommended. Chloride [Moles/Vol] 103 mmol/L 98-107 [facility] Work Phone: Eosinophils/100 WBC (Bld) 2.6 % 0-5 [facility] Work Phone: Glucose [Mass/Vol] 120 mg/dL 74-106 [facility] Work Phone: Comment on above: Fasting Glucose resu lt from 100 to 125 mg/dL suggests IMPAIRED HOMEOSTASIS per A.D.A. criteria. Neutrophils (Bld) [#/Vol] 7.4 10*3/uL 2.0-7.7 [facility] Work Phone: Neutrophils/100 WBC (Bld) 72.0 % 47-70 [facility] Work Phone: [phone] Potassium [Moles/Vol] 3.7 mmol/L 3.5-5.1 [facility] Work Phone: Protein [Mass/Vol] 7.2 g/dL 6.4-8.2 [facility] Work Phone: Sodium [Moles/Vol] 140 mmol/L 136-145 [facility] Work Phone: WBC (Bld) [#/Vol] 10.3 10*3/uL 4.4-11.0 [facility] Work Phone: Blood erythrocytes count (nu mber/volume)on 10-07-2022 RBC (Bld) [#/Vol] 4.69 10*6/uL 4.2-5.4 [facility] Work Phone: Blood hemoglobin measurement (mass/volume)on 10-07-2022 Hemoglobin (Bld) [Mass/Vol] 14.1 g/dL 12.0-15.0 [facility] Work Phone: Blood lymphocytes/100 leukoc yteson 10-07-2022 Lymphocytes/100 WBC (Bld) 17.0 % 19-41 [facility] Work Phone: Blood monocytes/100 leukocyt eson 10-07-2022 Monocytes/100 WBC (Bld) 7.6 % 0-10 [facility] Work Phone: Blood platelet mean volumeon 10-07-2022 Platelet mean volume (Bld) [Entitic vol] 9.5 fL 6.2-12.0 [facility] Work Phone: Determination of erythrocyte mean corpuscular volume (MCV)on 10-07-2022 MCV (RBC) [Entitic vol] 92.1 fL 81-99 [facility] Work Phone: Hematocrit Auto (Bld) [Volum e fraction]on 10-07-2022 Hematocrit (Bld) [Volume fraction] 43.2 % 37-47 [facility] Work Phone: INR in Blood by Coagulation assayOrdered By: Dr. Parsons on 10-07-2022 INR Coag (Bld) [Relative time] 1.0 {INR} [facility] - Chemistry and C hemistry - challengeon 10-07-2022 ALP [Catalytic activity/Vol] 155 U/L 45-117 [facility] Work Phone: ALT [Catalytic activity/Vol] 1430 U/L 13-56 [facility] Work Phone: CO2 [Moles/Vol] 31.0 mmol/L 21.0-32.0 [facility] Work Phone: Globulin (S) [Mass/Vol] 3.9 g/dL 2.2-4.2 [facility] Work Phone: Lipase [Catalytic activity/Vol] 580 U/L 73-393 [facility] Work Phone: Urea nitrogen/Creatinine [Mass ratio] 19.8 mg/mg 10-20 [facility] Work Phone: Laboratory - CoagulationOrde red By: Dr. Parsons on 10-07-2022 aPTT Coag (Bld) [Time] 24.3 s 24.1-36.2 [facility] PT Coag (PPP) [Time] 12.6 s 11.7-14.9 [facility] Laboratory - Hematology and Cell countson 10-07-2022 Erythrocyte distribution width (RBC) [Entitic vol] 45.1 fL 35.1-43.9 [facility] Work Phone: Erythrocyte distribution width (RBC) [Ratio] 13.4 % 11.6-14.6 [facility] Work Phone: Immature granulocytes/100 WBC (Bld) 0.500 % 0.0-0.9 [facility] Work Phone: Comment on above: IG% - Immature Granu locytes (promyelocytes, myelocytes and metamyelocytes) > 1% indicates that a LEFT SHIFT is Present. MCH (RBC) [Entitic mass] 30.1 pg 27.0-32.0 [facility] Work Phone: Nucleated RBC/100 WBC (Bld) [Ratio] 0 % 0-5 [facility] Work Phone: Laboratory - Microbiology an d Antimicrobial susceptibilityOrdered By: Dr. Parsons on 10-07-2022 SARS-CoV-2 (COVID-19) RNA ARLEN+probe Ql (Unsp spec) Not detected Not Detect [facility] Comment on above: Normal Reference Ran ge: Not DetectedMethod:(RT-PCR) real-time reverse transcriptase PCRLuminex NESTOR Instrument*The Food and Drug Administration (FDA) has issued an Emergency Use Authorization (EAU) for the NESTOR SARS-CoV-2 Assay for the rapid detection of the virus that causes COVID-19. This test has been validated, but the FDAs independent review of this validation is pending.*Negative [...] 12b panel ARLEN+probe (Unsp spec) [facility] Auto (RBC) [Mass/Vol]on 10-07-2022 MCHC (RBC) [Mass/Vol] 32.6 g/dL 32-36 [facility] Work Phone: No Panel InformationOrdered By: Dr. Maier on 10-07-2022 Hepatitis A IgM Antibody Negative Negative [facility] Hepatitis B Core IgM Antibody Negative Negative [facility] Hepatitis C Antibody (EIA) 0.1 s/co ratio 0.0-0.9 [facility] Hepatitis C Antibody Comment Comment . [facility] Comment on above: NegativeNot infected with HCV, unless recent infection issuspected or other evidence exists to indicate HCVinfection.Performed at: [place] [employer] [id number] Director: Isaac Jiang PhD, Phone: [phone] Troponin I High Sensitivity 6 pg/mL 3.0-54.0 [facility] Comment on above: Please Note: New Eun t Units and Gender Specific Reference Ranges. For more information see Policy Stat Procedure [place] High Sensitivity Troponin (TNIH) and attachments. No Panel Informationon 10-07 Estimated Creatinine Clearance Calc 48.95 ml/min [facility] Work Phone: Estimated GFR (MDRD) Amer 77 mL/min >60 [facility] Work Phone: Comment on above: GFR Calc Estimated GFR (MDRD) Non-Af Amer 63 mL/min >60 [facility] Work Phone: Comment on above: Non- GFR Calc Platelets bldon 10-07-2022 Platelets (Bld) [#/Vol] 351 10*3/uL 150-450 [facility] Work Phone: Serum or plasma albumin osmel urement (mass/volume)on 10-07-2022 Albumin [Mass/Vol] 3.3 g/dL 3.2-5.0 [facility] Work Phone: Serum or plasma albumin/glob ulin mass ratioon 10-07-2022 Albumin/Globulin [Mass ratio] 0.8 {ratio} 0.9-2.4 [facility] Work Phone: Serum or plasma calcium osmel urement (mass/volume)on 10-07-2022 Calcium [Mass/Vol] 9.3 mg/dL 8.5-10.1 [facility]: Serum or plasma creatinine m easurement (mass/volume)on 10-07-2022 Creatinine [Mass/Vol] 0.91 mg/dL 0.55-1.02 [facility] Work Phone: Comment on above: The validity of the calculated GFR & GFRAA in patients over 70 years has not been determined. Clinical correlation is essential. Serum or plasma hepatitis B virus surface antigen detection by immunoassayOrdered By: Dr. Maier on 10-07-2022 HBV surface Ag IA Ql Negative Negative [facility] Serum or plasma urea nitroge n measurement (mass/volume)on 10-07-2022 Urea nitrogen [Mass/Vol] 18 mg/dL 7-18 [facility] Work Phone: Thin prep Papanicolaou smear with manual screeningon 10-07-2022 Thin prep Papanicolaou smear with manual screening 1019 U/L 15-37 [facility] Work Phone: Thin prep Papanicolaou smear with manual screening 6 5-15 [facility] Work Phone: Absolute lymphocyte counton 04-16-2022 Lymphocytes Auto (Unsp spec) [#/Vol] 2.90 10*3/uL 0.83-4.51 [facility] Work Phone: Basophil percentageon 2021 Basophils/100 WBC (Bld) 0.7 % 0-1 [facility] Work Phone: Eosinophils/100 WBC (Bld) 1.1 % 0-5 [facility] Work Phone: Neutrophils (Bld) [#/Vol] 5.7 10*3/uL 2.0-7.7 [facility] Work Phone: Neutrophils/100 WBC (Bld) 59.6 % 47-70 [facility] Work Phone: WBC (Bld) [#/Vol] 9.6 10*3/uL 4.4-11.0 [facility] Work [facility]: Blood erythrocytes count (nu mber/volume)on 04-16-2022 RBC (Bld) [#/Vol] 4.29 10*6/uL 4.2-5.4 [facility]: Blood hemoglobin measurement (mass/volume)on 04-16-2022 Hemoglobin (Bld) [Mass/Vol] 13.3 g/dL 12.0-15.0 [facility] Work Phone: Blood lymphocytes/100 leukoc yteson 04-16-2022 Lymphocytes/100 WBC (Bld) 30.1 % 19-41 [facility] Work Phone: Blood monocytes/100 leukocyt eson 04-16-2022 Monocytes/100 WBC (Bld) 8.1 % 0-10 [facility] Work Phone: Blood platelet mean volumeon 04-16-2022 Platelet mean volume (Bld) [Entitic vol] 9.8 fL 6.2-12.0 [facility] Work Phone: Determination of erythrocyte mean corpuscular volume (MCV)on 04-16-2022 MCV (RBC) [Entitic vol] 94.6 fL 81-99 [facility] Work Phone: Hematocrit Auto (Bld) [Volum e fraction]on 04-16-2022 Hematocrit (Bld) [Volume fraction] 40.6 % 37-47 [facility] Work Phone: Iron measurement (mass/mass) on 04-16-2022 Iron (Unsp spec) [Mass/Mass] 89 ug/dL 50-170 [facility] Work Phone: Laboratory - Hematology and Cell countson 04-16-2022 Erythrocyte distribution width (RBC) [Entitic vol] 44.2 fL 35.1-43.9 [facility] Work Phone: Erythrocyte distribution width (RBC) [Ratio] 12.7 % 11.6-14.6 [facility] Work Phone: Immature granulocytes/100 WBC (Bld) 0.400 % 0.0-0.9 [facility] Work Phone: Comment on above: IG% - Immature Granu locytes (promyelocytes, myelocytes and metamyelocytes) > 1% indicates that a LEFT SHIFT is Present. MCH (RBC) [Entitic mass] 31.0 pg 27.0-32.0 [facility] Work Phone: Nucleated RBC/100 WBC (Bld) [Ratio] 0 % 0-5 [facility] Work Phone: MCHC Auto (RBC) [Mass/Vol]on 04-16-2022 MCHC (RBC) [Mass/Vol] 32.8 g/dL 32-36 [facility] Work Phone: Platelets bldon 04-16-2022 Platelets (Bld) [#/Vol] 331 10*3/uL 150-450 [facility] Work Phone: CNOVon 07-01-2021 CNOV Office Visit (ZACK ) MELYSSA MATA ([id number]) 1940 F Date Time Provider Department 07/01/21 [...] SURGERY HX - COLONOSCOP W/ OR W/O [facility] SPEC 2002 Colonoscopy WNL - COLONOSCOP W/ OR W/O [facility] SPEC 11/23/05 Colonoscopy - COLONOSCOP W/ OR W/O [facility] SPEC 02/03/11 - COLONOSCOP W/ OR W/O [facility] SPEC 06/05/16 Colonoscopy - DANDC, [...] colonic polyp (more content not included)... Normal [facility] 06-03-2021 [place] Telephone (ZACK) CESARMELYSSA ([id number]) 1940 F Date Time Provider Department 06/03/21 [...] PCP regarding the message below. SONIA Cosme APRN.TEACHER ASST 06/08/2021 9:38 AM Signed Can you please follow up with patient and see if her constipation has resolved since the colonoscopy. What is she taking? If still constipated, can take OTC magnesium citrate and take half the bottle, if no BM within one hour then continue to take the other half of magnesium citrate. Thanks Iraida Simmons APRN.GOLDEN Oliver LPN 06/12/2021 1:44 PM Signed LEFT MESSAGE FOR PATIENT TO CALL OFFICE with an update. Kenya Paredes RN 06/12/2021 2:02 PM Signed Patient calls and states that she is still having problems with constipation. Patient is taking 2 Tablespoons of Benefiber and ex lax. Advised patient of provider recommendations of OTC Magnesium Citrate. Patient states that she will try that. SONIA Cosme APRN.TEACHER ASST 06/23/2021 3:25 PM Signed Call patient verified . Patient reports she is doing much better. Having a bowel movement daily or every other day. She is taking fiber daily 2 TBPs Iraida Simmons APRN.GOLDEN Allergies As of Date: 06/03/2021 Noted Allergy [...] Status:Closed by IRAIDA SIMMONS on 06/23/21 Normal [facility] HISTORY PHYSICALon HISTORY PHYSICAL HNO ID: [id number] Author: Lucas Buchanan MD Service: General Surgery [...] DATE: May 29, 2021 TIME: 7:53 AM [facility] NURSING PROGon 05-29-2021 NURSING PROG HNO ID: [id number] Author: Gracy Aguilar RN Service: ? Author Type: Registered Nurse Type: Nursing Progress Note Filed: 05/29/2021 8:27 AM Note Text: Patient arrived to PACU, on left side, abdomen soft. Patient resting comfortably with no pain. Call light within reach. Gracy Aguilar RN [facility] NURSING PROG HNO ID: [id number] Author: Aleta Ely RN Service: ? Author Type: Registered Nurse Type: Nursing Progress Note Filed: 05/29/2021 7:58 AM Note Text: [facility] PRE-OP NURSING HAND OFF NOTE SBAR Hand off given to Leonor Win RN. Hand off was communicated verbally and at the patient's bedside and all questions were answered. Aleta Ely RN [facility] CNOVon 04-24-2021 CNOV Office Visit (GASTWS ) MELYSSA MATA ([id number]) 1940 F Date Time Provider Department 04/24/21 [...] Laterality Date - COLONOSCOP W/ OR W/O [facility] SPEC 2002 Colonoscopy WNL - COLONOSCOP W/ OR W/O [facility] SPEC 11/23/05 Colonoscopy - COLONOSCOP W/ OR W/O [facility] SPEC 02/03/11 - COLONOSCOP W/ OR W/O [facility] SPEC 06/05/16 Colonoscopy - DANDC, [...] tablet daily (more content not included)... Normal [facility] CNPNon 04-24-2021 CNPN Telephone (ZACK) MELYSSA MATA ([id number]) 1940 F Date Time Provider Department 04/24/21 IRAIDA SIMMONS During your visit today, we recorded the following information about you: Jeimy Oliver LPN 04/24/2021 3:00 PM Addendum Patient is scheduled at [facility] on 05/29/[address] Buchanan for a colonoscopy. DX: Adenomatous polyp of colon, unspecified part of colon [D12.6] Verbal and written instructions given. [facility] SURGICAL PHONE NOTE Date of Procedure/Surgery: 05/22/21 Procedure/Surgery Type: COLONOSCOPY ? SEDATION:Conscious Sedation Location of Planned Procedure/Surgery: ? [facility] Surgery/Procedure Ordered: Yes COVID Testing Required: (FOR MAC CASES AND ASC PROCEDURES OTHER THAN COLON AND EGD): No Pre-Op Clearance Needed: No Prep Ordered:Yes: MIRALAX/DULCOLAX Prep Instructions given:Yes: Given in the office. Referral Completed:PAVE to complete. Patient Diabetic:Yes diet controled Medication Considerations: Patient on blood Thinners: No Any other meds that need to be held: No Pacemaker or Defibrillator:No Patient/Family Informed of above information and given directions regarding location/arrival: Yes: Patient Transportation Considerations: No Other Important Information: No Any physical limitations: No Any cognitive limitations: No Nursery Helper/Central Office Operator required: No Communication Limitations: No Segun Viramontes [...] colon [D12.6] Order(s):SURGICAL REQUEST - ELECTIVE (06/2020) [[id number]] Order #: [id number]: 1 Prescriptions as of 06/12/2021 - polyethylene [...] cancer [Z12.11] 06/05/2016 06/05/2016 Encounter Status:Closed by ROBERT RODRIGUEZ on 05/02/21 Normal [facility] HISTORY PHYSICALon HISTORY PHYSICAL HNO ID: [id number] Author: Iraida Simmons APRN.TEACHER ASST Service: ? Author Type: Nurse Practitioner Type: [...] Laterality Date - COLONOSCOP W/ OR W/O [facility] SPEC 2002 Colonoscopy WNL - COLONOSCOP W/ OR W/O [facility] SPEC 11/23/05 Colonoscopy - COLONOSCOP W/ OR W/O [facility] SPEC 02/03/11 - COLONOSCOP W/ OR W/O [facility] SPEC 06/05/16 Colonoscopy - DANDC, [...] diclofenac, E (more content not included)... Normal [facility] HOSPon 04-24-2021 HOSP Patient:Melyssa Mata MRN: Height:4' 10.661(1.49 [...] entered within the past 30 days Normal [facility] Laboratory - Microbiology an d Antimicrobial susceptibility Respiratory pathogens DNA and RNA 12b panel ARLEN+probe (Unsp spec) [facility] Work Phone: Vital Signs Date Time Vital Sign Value Performing Clinician Amandeep metcalf 12-29-2024 10:51-0500 Body height 147.[address] Liane Stephenson DO Work Phone: [facility] 12-29-2024 10:51-0500 Body mass index (BMI) [Ratio] 28.2 kg/m2 Dr. Liane Stephenson DO Work Phone: [facility] 12-29-2024 10:51-0500 Body temperature 96.8 [degF] Dr. Liane Stephenson DO Work Phone: [facility] 12-29-2024 10:51-0500 Body weight 61.[address] Liane Stephenson DO Work Phone: [facility] 12-29-2024 10:51-0500 Diastolic blood pressure 68 mm[Hg] Dr. Liane Stephenson DO Work Phone: [facility] 12-29-2024 10:51-0500 Heart rate 64 /min Dr. Liane Stephenson DO Work Phone: [facility] 12-29-2024 10:51-0500 Respiratory rate 16 /min Dr. Liane Stephenson DO Work Phone: [facility] 12-29-2024 10:51-0500 SaO2% (BldA) [Mass fraction] 100 % Dr. Liane Stephenson DO Work Phone: [facility] 12-29-2024 10:51-0500 Systolic blood pressure 138 mm[Hg] Dr. Liane Stephenson DO Work Phone: [facility] 03-16-2024 19:50-0400 Body height 147.32 cm [facility] 03-16-2024 19:50-0400 Body mass index (BMI) [Ratio] 27.8 kg/m2 [facility] 03-16-2024 19:50-0400 Body temperature 97.8 [degF] [facility] 03-16-2024 19:50-0400 Body weight 60.49 kg [facility] 03-16-2024 19:50-0400 Diastolic blood pressure 65 mm[Hg] [facility] 03-16-2024 19:50-0400 Heart rate 67 /min [facility] 03-16-2024 19:50-0400 Respiratory rate 16 /min [facility] 03-16-2024 19:50-0400 SaO2% (BldA) [Mass fraction] 100 % [facility] 03-16-2024 19:50-0400 Systolic blood pressure 163 mm[Hg] [facility] 12-31-2023 10:17-0500 Body height 152.4 cm [facility] 12-31-2023 10:17-0500 Body mass index (BMI) [Ratio] 24.4 kg/m2 [facility] 12-31-2023 10:17-0500 Body temperature 97 [degF] [facility] 12-31-2023 10:17-0500 Body weight 56.69 kg [facility] 12-31-2023 10:17-0500 Diastolic blood pressure 50 mm[Hg] [facility] 12-31-2023 10:17-0500 Heart rate 66 /min [facility] 12-31-2023 10:17-0500 Respiratory rate 16 /min [facility] 12-31-2023 10:17-0500 SaO2% (BldA) [Mass fraction] 99 % [facility] 12-31-2023 10:17-0500 Systolic blood pressure 134 mm[Hg] [facility] 07-02-2023 12:11-0400 Body height 152.4 cm [facility] 07-02-2023 12:11-0400 Body mass index (BMI) [Ratio] 23.6 kg/m2 [facility] 07-02-2023 12:11-0400 Body temperature 97.2 [degF] [facility] 07-02-2023 12:11-0400 Body weight 54.88 kg [facility] 07-02-2023 12:11-0400 Diastolic blood pressure 77 mm[Hg] [facility] 07-02-2023 12:11-0400 Heart rate 64 /min [facility] 07-02-2023 12:11-0400 Respiratory rate 16 /min [facility] 07-02-2023 12:11-0400 SaO2% (BldA) [Mass fraction] 100 % [facility] 07-02-2023 12:11-0400 Systolic blood pressure 142 mm[Hg] [facility] 01-01-2023 22:47-0500 Diastolic blood pressure 61 mm[Hg] Dr. Liane Stephenson Work Phone: [facility] 01-01-2023 22:47-0500 Heart rate 73 /min Dr. Liane Stephenson Work Phone: [facility] 01-01-2023 22:47-0500 Respiratory rate 15 /min Dr. Liane Stephenson Work Phone: [facility] 01-01-2023 22:47-0500 SaO2% (BldA) [Mass fraction] 98 % Dr. Liane Stephenson Work Phone: [facility] 01-01-2023 22:47-0500 Systolic blood pressure 125 mm[Hg] Dr. Liane Stephenson Work Phone: [facility] 01-01-2023 18:21-0500 Body height 147.[address] Liane Stephenson Work Phone: [facility] 01-01-2023 18:21-0500 Body mass index (BMI) [Ratio] 29.9 kg/m2 Dr. Liane Stephenson Work Phone: [facility] 01-01-2023 18:21-0500 Body temperature 96.8 [degF] Dr. Liane Stephenson Work Phone: [facility] 01-01-2023 18:21-0500 Body weight 65.[address] Liane Stephenson Work Phone: [facility] 12-18-2022 10:27-0500 Body height 147.[address] Liane Stephenson Work Phone: [facility] 12-18-2022 10:27-0500 Body mass index (BMI) [Ratio] 28.8 kg/m2 Dr. Liane Stephenson Work Phone: [facility] 12-18-2022 10:27-0500 Body temperature 96.6 [degF] Dr. Liane Stephenson Work Phone: [facility] 12-18-2022 10:27-0500 Body weight 62.[address] Liane Stephenson Work Phone: [facility] 12-18-2022 10:27-0500 Diastolic blood pressure 82 mm[Hg] Dr. Liane Stephenson Work Phone: [facility] 12-18-2022 10:27-0500 Heart rate 65 /min Dr. Liane Stephenson Work Phone: [facility] 12-18-2022 10:27-0500 Respiratory rate 16 /min Dr. Liane Stephenson Work Phone: [facility] 12-18-2022 10:27-0500 SaO2% (BldA) [Mass fraction] 99 % Dr. Liane Stephenson Work Phone: [facility] 12-18-2022 10:27-0500 Systolic blood pressure 141 mm[Hg] Dr. Liane Stephenson Work Phone: [facility] 10-09-2022 08:05-0500 Body temperature 97.9 [degF] Dr. Liane Stephenson Work Phone: [facility] 10-09-2022 08:05-0500 Diastolic blood pressure 80 mm[Hg] Dr. Liane Stephenson Work Phone: [facility] 10-09-2022 08:05-0500 Heart rate 61 /min Dr. Liane Stephenson Work Phone: [facility] 10-09-2022 08:05-0500 Respiratory rate 18 /min Dr. Liane Stephenson Work Phone: [facility] 10-09-2022 08:05-0500 SaO2% (BldA) [Mass fraction] 100 % Dr. Liane Stephenson Work Phone: [facility] 10-09-2022 08:05-0500 Systolic blood pressure 155 mm[Hg] Dr. Liane Stephenson Work Phone: [facility] 10-09-2022 04:34-0500 Body weight 62.[address] Liane Stephenson Work Phone: [facility] 10-08-2022 10:21-0500 Body height 147.[address] Liane Stephenson Work Phone: [facility] Work Phone: 10-07-2022 19:14-0500 Body mass index (BMI) [Ratio] 29.3 kg/m2 Dr. Liane Stephenson Work Phone: [facility] 10-07-2022 17:51-0500 Body temperature 97.2 [degF] [facility] Work Phone: 10-07-2022 17:51-0500 Diastolic blood pressure 44 mm[Hg] [facility] Work Phone: 10-07-2022 17:51-0500 Heart rate 75 /min [facility] Work Phone: 10-07-2022 17:51-0500 Respiratory rate 18 /min [facility] Work Phone: 10-07-2022 17:51-0500 SaO2% (BldA) [Mass fraction] 98 % [facility] Work Phone: 10-07-2022 17:51-0500 Systolic blood pressure 128 mm[Hg] [facility] Work Phone: 10-07-2022 14:42-0500 Body height 147.32 cm [facility] Work Phone: 10-07-2022 14:42-0500 Body mass index (BMI) [Ratio] 29.5 kg/m2 [facility] Work Phone: 10-07-2022 14:42-0500 Body weight 63.95 kg [facility] Work Phone: 06-19-2022 10:30-0400 Body height 147.32 cm [facility] Work Phone: 06-19-2022 10:30-0400 Body temperature 96.8 [degF] [facility] Work Phone: 06-19-2022 10:30-0400 Diastolic blood pressure 76 mm[Hg] [facility] Work Phone: 06-19-2022 10:30-0400 Heart rate 63 /min [facility] Work Phone: 06-19-2022 10:30-0400 Respiratory rate 16 /min [facility] Work Phone: 06-19-2022 10:30-0400 SaO2% (BldA) [Mass fraction] 100 % [facility] Work Phone: 06-19-2022 10:30-0400 Systolic blood pressure 131 mm[Hg] [facility] Work Phone: 12-25-2021 09:48-0500 Body height 147.32 cm [facility] Work Phone: 12-25-2021 09:48-0500 Body mass index (BMI) [Ratio] 29.2 kg/m2 [facility] Work Phone: 12-25-2021 09:48-0500 Body temperature 97.6 [degF] [facility] Work Phone: 12-25-2021 09:48-0500 Body weight 63.5 kg [facility] Work Phone: 12-25-2021 09:48-0500 Diastolic blood pressure 90 mm[Hg] [facility] Work Phone: 12-25-2021 09:48-0500 Heart rate 78 /min [facility] Work Phone: 12-25-2021 09:48-0500 Respiratory rate 16 /min [facility] Work Phone: 12-25-2021 09:48-0500 SaO2% (BldA) [Mass fraction] 97 % [facility] Work Phone: 12-25-2021 09:48-0500 Systolic blood pressure 131 mm[Hg] [facility] Work Phone: Encounters Encounter Date Encounter Type Care Provider Facility Start: 04-10-2025 End: 04-10-[address] Liane Stephenson DO Work Phone: [facility] Work Phone: Start: 04-10-2025 End: 04-10-[address] Liane Stephenson DO -Laboratory [place] Work Phone: Start: 04-10-2025 End: 04-10-2025 ambulatory Liane Stephenson Facility:[facility] Start: 12-29-2024 End: 12-29-[address] Liane Stephenson DO -Medical Out Work Phone: Start: 12-29-2024 End: 12-29-2024 ambulatory Liane Stephenson Facility:[facility] Start: 06-30-2024 End: 06-30-2024 ambulatory Liane Stephenson Facility:[facility] Start: 06-19-2024 End: 06-19-2024 ambulatory Liane Stephenson Facility:[facility] Start: 03-16-2024 End: 03-16-2024 Emergency department patient visit [facility]-Emergency Department Work Phone: Start: 12-31-2023 End: 12-31-2023 ambulatory [facility] Work Phone: Start: 12-31-2023 End: 12-31-2023 Patient encounter procedure [facility]-Medical Out Work Phone: Start: 12-08-2023 End: 12-08-2023 Patient encounter procedure [facility]-LaboratoryArash Luanjose elias [facility] Start: 10-11-2023 End: 11-07-2023 ambulatory [facility] Work Phone: Start: 10-11-2023 End: 11-07-2023 Discharged Recurring [facility]-Nutritional Services Work Phone: Start: 10-11-2023 Registered Recurring [facility]-Physical Therapy Work Phone: Start: 09-07-2023 End: 09-07-2023 ambulatory [facility] Work Phone: Start: 09-07-2023 End: 09-07-2023 Patient encounter procedure [facility]-Radiology, [place] Work Phone: Start: 07-02-2023 End: 07-02-2023 ambulatory [facility] Work Phone: Start: 07-02-2023 End: 07-02-2023 Patient encounter procedure [facility]-Medical Out Work Phone: Start: 05-07-2023 End: 05-07-2023 ambulatory [facility] Work Phone: Start: 05-07-2023 End: 05-07-2023 Patient encounter procedure [facility]RAD [facility] Work Phone: Start: 03-30-2023 End: 03-30-2023 Patient encounter procedure [facility]-Radiology, [place] Work Phone: Start: 03-24-2023 End: 03-24-2023 Patient encounter procedure [facility]LaboratoryArash An [facility] Start: 02-08-2023 End: 02-08-2023 ambulatory [facility] Work Phone: Start: 02-08-2023 End: 02-08-2023 Patient encounter procedure [facility]atoryAr[facility] Start: 01-01-2023 End: 01-01-2023 Emergency department patient visit Dr. Liane Stephenson Work Phone: [facility]-Emergency Department Start: 12-18-2022 End: 12-18-[address] Liane Stephenson Work Phone: [facility] Work Phone: Start: 12-18-2022 End: 12-18-[address] Liane Stephenson Work Phone: [facility] Start: 10-14-2022 End: 10-14-[address] Liane Stephenson Work Phone: [facility] Start: 10-09-2022 Non-patient / Non-visit Dr. Radha Stephenson Work Phone: [facility] Start: 10-08-2022 Non-patient / Non-visit Dr. Radha Stephenson Work Phone: [facility] Start: 10-08-2022 Non-patient / Non-visit Dr. Radha Stephenson Work Phone: [facility] Start: 10-07-2022 Non-patient / Non-visit Dr. Radha Stephenson Work Phone: [facility] Start: 10-07-2022 End: 10-09-2022 [facility] Start: 06-19-2022 End: 06-19-2022 [facility] Start: 04-16-2022 End: 04-16-2022 Patient encounter procedure [facility] Start: 12-25-2021 End: 12-25-2021 [facility] Date Procedure Procedure Detail Performing [...] Date Care Activity Detail Author Start: 03-16-[address] [facility] Start: 10-09-2022 Patient discharge [facility] Start: 10-07-2022 Application of inter mittent pneumatic compression device [facility] Start: 10-07-2022 Assessment of risk o f venous thromboembolism [facility] Start: 10-07-2022 Fall prevention [facility] Start: 10-07-2022 Incentive spirometry [facility] Start: 10-07-2022 Inhalation therapy procedure [facility] Start: 10-07-2022 Insertion of cathete r into peripheral vein [facility] Start: 10-07-2022 Introduction of urinary catheter [facility] Start: 10-07-2022 Measuring intake and output [facility] Start: 10-07-2022 Oxygen therapy [facility] Start: 10-07-2022 Providing care accor ding to standard [facility] Start: 10-07-2022 Provision of activity privileges [facility] Start: 10-07-2022 Referral to gastroen terology service [facility] Start: 10-07-2022 End: 10-07-2022 [facility] Start: 10-07-2022 Following clinical p athway protocol [facility] Start: 10-07-2022 Admission procedure [facility] Alanine aminotransfe rase [Enzymatic activity/volume] in Serum or Plasma [facility] Work Phone: Albumin [Mass/volume ] in Serum or Plasma [facility] Work Phone: Alkaline phosphatase [Enzymatic activity/volume] in Serum or Plasma [facility] Work Phone: Anion gap measurement [facility] Work Phone: Aspartate aminotrans ferase [Enzymatic activity/volume] in Serum or Plasma [facility] Work Phone: Bilirubin, total measurement [facility] Work Phone: BUN/Creatinine ratio [facility] Work Phone: Calcium [Mass/volume ] in Serum or Plasma [facility] Work Phone: Carbon dioxide, tota l [Moles/volume] in Serum or Plasma [facility] Work Phone: Chloride [Moles/volu me] in Serum or Plasma [facility] Work Phone: Cholesterol [Mass/vo lume] in Serum or Plasma [facility] Work Phone: Cholesterol in HDL [ Mass/volume] in Serum or Plasma [facility] Work Phone: Cholesterol in LDL [ Mass/volume] in Serum or Plasma [facility] Work Phone: Creatinine [Moles/vo lume] in Serum or Plasma [facility] Work Phone: Glucose [Mass/volume ] in Serum or Plasma [facility] Work Phone: Hematocrit [Volume F raction] of Blood [facility] Work Phone: Hemoglobin [Mass/volume] in Blood [facility] Work Phone: Hepatitis A virus Ig M Ab [Presence] in Serum [facility] Work Phone: Hepatitis B core ant ibody measurement, IgM type [facility] Work Phone: Hepatitis B surface antigen measurement [facility] Work Phone: Hepatitis C antibody measurement [facility] Work Phone: Leukocytes [#/volume] in Blood [facility] Work Phone: Lipase measurement [facility] Work Phone: Mean corpuscular hem oglobin concentration determination [facility] Work Phone: Mean corpuscular hem oglobin determination [facility] Work Phone: Measurement of renal function [facility] Work Phone: Neutrophil count [facility] Work Phone: Neutrophil percent d ifferential count [facility] Work Phone: Patient Education [facility] Work Phone: Patient referral [facility] Work Phone: Platelets [#/volume] in Blood [facility] Work Phone: Potassium [Moles/vol ume] in Serum or Plasma [facility] Work Phone: Red blood cell count [facility] Work Phone: Red cell distributio n width determination [facility] Work Phone: Respiratory pathogen s DNA and RNA 12b panel - Unspecified specimen by ARLEN with probe detection [facility] Work Phone: Sodium [Moles/volume ] in Serum or Plasma [facility] Work Phone: Total protein measurement [facility] Work Phone: Triglycerides measurement [facility] Work Phone: Urea nitrogen [Mass/ volume] in Serum or Plasma [facility] Work Phone: VLDL cholesterol measurement [facility] Work Phone: Immunizations Immunization Date Immunization Notes Care Provider Fa cility 03-16-2024 tetanus toxoid, redu solo diphtheria toxoid, and acellular pertussis vaccine, adsorbed [facility] 01-10-2021 Covid (Moderna) [facility] Payers Date Payer Category Payer Private Health Insurance [id number] 2023 Self-pay [id number] 2014 [id number] Medicare [id number] Self-pay SELF PAY BY [employer] [id number] Unknown [id number] Unknown [id number] Unknown [id number] Unknown [id number] Social History Date Type Detail Facility Start: 06-01-2021 End: 03-16-2024 Tobacco smoking status NHIS Unknown if ever smoked [facility] Start: 04-15-[address] [facility] Start: 04-15-[address] [facility] Start: 06-01-2021 Non-smoker [facility] Start: 1940 Sex Assigned At Female [facility] Start: 03-16-2024 Tobacco smoking stat us NHIS Never smoked tobacco (finding) [facility] Goals Date Patient Goal Desired Activity /State Functional Status Date Assessment Result Facility 10-09-2022 Functional status Ambulates [facility] Work Phone: Mental Status Date Assessment Result Facility 12-29-2024 Cognitive function Voice/Name [facility] Work Phone: 07-02-2023 Cognitive function Voice/Name [facility] Work Phone: 12-18-2022 Cognitive function Voice/Name [facility] Work Phone: 10-09-2022 Cognitive function Voice/Name Woody Machado [facility] Work Phone: 06-19-2022 Cognitive function Awake;Alert;A ppropriate;Fol lows Commands [facility] Work Phone: 12-25-2021 Cognitive function Awake;Alert;A ppropriate;Fol lows Commands [facility] Work Phone: Discharge summary 03-16-2024 Note Date & Type Note Facility 03-16-2024 Discharge summary Note Date/Time March 16, 2024 8:45pm [facility] Medical Records Department [address] [place] [address] Emergency Department Summary 03/16/24 MR#: [id number] Acct: [id number] Name: MELYSSA MATA Rep #:[id number] : 1940 83 From: Gaurav Parker DO [...] clean it out with peroxide. [facility] Medical History HLD (hyperlipidemia) HTN (hypertension) Macular [...] your Primary Care Provider. Call [facility] ([phone]) or report to the closest Emergency Room. Call 911 if necessary. 03/16/242044 <Electronically signed by Gaurav Parker DO> Cosigner Signature (if applicable): CC: Dr. Liane Stephenson DO ~ Signed [facility] Work Phone: Progress note 07-01-2021 Note Date & Type Note Facility 07-01-2021 Note HNO ID: [id number] Author: Iraida Simmons APRN.TEACHER ASST Service: ? Author Type: Nurse Practitioner Type: [...] 3. Rectum, polypectomy (C) - Hyperplastic polyp. IAN/linsey 06/08/2016 COMMENT 2. (B). Additional histologic sections [...] SURGERY HX - COLONOSCOP W/ OR W/O [facility] SPEC 2002 Colonoscopy WNL - COLONOSCOP W/ OR W/O [facility] SPEC 11/23/05 Colonoscopy - COLONOSCOP W/ OR W/O [facility] SPEC 02/03/11 - COLONOSCOP W/ OR W/O [facility] SPEC 06/05/16 Colonoscopy - DANDC, DIAG AND/OR [...] polyp of asce (more content not included)... [facility] Clinical Note 05-29-2021 Note Date & Type Note Facility 05-29-2021 Note HNO ID: [id number] Author: Gracy Aguilar RN Service: ? Author Type: Registered Nurse Type: Nursing Progress Note Filed: 05/29/2021 8:40 AM Note Text: Patient sitting up in bed tolerating snack and drink without problems. Gracy Aguilar RN [facility] Evaluation note Note Date & Type Note Facility Evaluation note No assessment information availa ble [facility] Work Phone: Evaluation note Note Date & Type Note Facility Evaluation note Diagnosis Onset Date Acute pancreatitis acute Hepatitis acute Nausea & vomiting acute Transaminitis acute [facility] Work Phone: Evaluation note Note Date & Type Note Facility Evaluation note Diagnosis Onset Date Acute pancreatitis resolved Hepatitis resolved Nausea & vomiting resolved Transaminitis resolved [facility] Work Phone: Reason for referral (narrative) Note Date & Type Note Facility Reason for referral (narrative) No reason for referral information available [facility] Work Phone: Summary Purpose Family History No [...] Yes May 31, 2021 3:12pm Power of Strip Cutter Yes May 31 3:12pm Advance Directive Response Recorded Date/ Time Name of Medical Power of Strip Cutter Fabrizio Mata October 07, 2022 6:05pm Advance Directives Yes December 6:24pm Living Will Yes October 07, 6:05pm Power of Strip Cutter Yes October 07, 2022 6:05pm Advance Directive Response Recorded Date/ Time Name of Medical Power of Strip Cutter Fabrizio Mata October 07, 2022 6:05pm Advance Directives Yes December 6:24pm Living Will No January 01 10:47pm Power of Strip Cutter No January 01, 2023 10:47pm Advance Directive Response Recorded Date/ Time Advance Directives Yes December 7:24pm Living Will No January 01 11:47pm Power of Strip Cutter No January 01, 2023 11:47pm Advance Directive Response Recorded Date/ Time Advance Directives Yes December 6:24pm Living Will No January 01 10:47pm Power of Strip Cutter No January 01, 2023 10:47pm Advance Directive Response Recorded Date/ Time Advance Directives Yes December 7:24pm Living Will No March 16, 2024 8: 27pm Power of Strip Cutter No March 16, 2024 8:27pm Advance Directive Response Recorded Date/ Time Living Will No March 16, 2024 8: 27pm Do you have a Healthcare Power of Strip Cutter? No March 16, 2024 8:27pm Advance Directives Yes December 7:24pm Chief Complaint and Reason for Visit Chief [...] CLASS PROLIA Chief Complaint PROLIA DOG BITE Chief Complaint Admit Date PROLIA December 29, 2024 10:24am FASTING April 10, 2025 7:47a m Additional Source Comments INFORMATION SOURCE (unrecogn ized section and content) DATE CREATED AUTHOR 12/04/2021 [facility] DATE CREATED AUTHOR AUTHOR'S ORGANIZ ATION 04/14/2025 [facility] Goals (unrecognized section and content) Goals [...] Liane Stephenson DO Primary Care Provider Active Jessie Zabala HAND SPRAYER-C Attending Provider, Referring Pro vider Active Team [...] Dr. Francois Avila MD Family Provider Active Carlenefredy Arriaga HAND SPRAYER-C Primary Care Provider Active Team Status: Inactive Member Role Status Dates Dr. Liane Stephenson DO Attending Provider, Referring Prov ider Active Carlene Arriaga HAND SPRAYER-C Primary Care Provider Active Team Status: Inactive Member Role Status Dates FRENCH Olivia Primary Care Provider, Attending P rokatharine Active Team Status: Inactive Member Role Status Dates Dr. Gaurav Parker DO Emergency Provider Active Dr. Liane Stephenson DO Primary Care Provider Active Team Status: Active Member Role Status Dates Dr. Liane Stephenson DO Primary Care Provider Active Team Status: Inactive Member Role Status Dates Dr. Liane Stephenson DO Primary Care Provider Active Start: December 29, 2024 End: December 29, 2024 Dr. Liane Stephenson DO Attending Provider Active St art: December 29, 2024 End: December 29, 2024 Dr. Liane Stepehnson DO Referring Provider Active St art: December 29, 2024 End: December 29, 2024 Team Status: Inactive Member Role Status Dates Dr. Liane Stephenson DO Primary Care Provider Active Start: April 10, 2025 End: April 10, 2025 Dr. Liane Stephenson DO Attending Provider Active St art: April 10, 2025 End: April 10, 2025 Dr. Liane Stephenson DO Referring Provider Active St art: April 10, 2025 End: April 10, 2025 FOR RECORDS PERTAINING TO PATIENTS WHO ARE [...] BE BASED ON THE PRIMARY CLINICAL RECORDS. [facility] [employer] provides no warranty or guarantee of the accuracy or completeness of information in this document.
--- NOTE | 2025-05-20 14:58 | RAD_ITS ---
PROCEDURE: CHEST 1 VIEW (PORTABLE) 05/20/2025 REASON FOR EXAM: CHEST PAIN TECHNIQUE: Frontal view of the chest. COMPARISON: 10/07/2022 FINDINGS: No focal consolidation. No pleural effusion or pneumothorax. Cardiac silhouette is within normal limits. Calcified aortic arch. Neurostimulator device noted. RAD/Chest 1 View (Portable) IMPRESSION: No focal consolidations. Reading Location: [id number]
[2025-05-20 15:05] LABS: Hematocrit 40.0 % (37-47); Hemoglobin 13.3 g/dL (12.0-15.0); Immature Granulocytes Count 0.030 X10^3/uL (0.0-0.0); Mean Corp Hgb Conc 33.3 g/dL (32-36); Mean Corpuscular Volume 93.0 fL (81-99); Mean Platelet Vol. 10.4 fl (6.2-12.0); NRBC Flagged by Analyzer 0 % (0-5); Platelet Count 262 K/mm3 (150-450); RBC Distribution Width CV 12.8 % (11.6-14.6); RBC Distribution Width SD 43.8 fl (35.1-43.9); Red Blood Count 4.30 M/mm3 (4.2-5.4); White Blood Count 9.9 K/mm3 (4.4-11.0)
[2025-05-20 15:20] LABS: D-Dimer Quantitative (DVT/PE) 0.27 FEU/ug/m (0.27-0.49)
[2025-05-20 15:48] LABS: Anion Gap 13 (5-15); BUN 18 mg/dL (4-19); BUN/Creat Ratio 16.6 RATIO (10-20); Calcium,Total 9.5 mg/dL (7.6-11.0); Carbon Dioxide 24.3 mmol/L (21.0-32.0); Chloride 97 mmol/L (98-108); Estimated Creatinine Clearance 32.48 ml/min (50-250); Glucose 130 mg/dL (70-99); Potassium 3.4 mmol/L (3.3-5.1)
--- NOTE | 2025-05-20 15:59 | RAD_ITS ---
PROCEDURE: SHOULDER MIN 2 VIEWS 05/20/2025 REASON FOR EXAM: PAIN TECHNIQUE: SHOULDER MIN 2 VIEWS COMPARISON: None FINDINGS: No displaced fracture or traumatic malalignment. [id number] joint space narrowing and osteophyte formation at the acromioclavicular joint, mild at the glenohumeral joint. Bone mineral density is subjectively normal. Soft tissues are unremarkable. Spinal stimulator leads partially imaged. Visualized thorax is clear. RAD/Shoulder min 2 Views IMPRESSION: No acute osseous abnormality of the left shoulder. 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 Reading Location: [facility]
[2025-05-20 16:22] LABS: Pro- Brain NATRIURETIC PEPTIDE 942 pg/mL (<=1800); Troponin T High Sensitivity 105 ng/L (<=14)
[2025-05-20] MEDS: Heparin Injection (Vial) 5,000 UNIT/ML VIAL 4000 UNIT IV (17:18)
[2025-05-20] MEDS: HEPARIN/D5w 25,000 UNITS 25,000 UNITS/250 ML IV.SOLN. 8 UNITS CONT INF (17:18)
--- NOTE | 2025-05-20 17:26 | PCM.HP.STD ---
HPI - General General Date of Admission: 05/20/25 Date of Service: 05/20/25 Chief Complaint: Chest pain HPI Narrative The patient is an 84 y/o F w/ PMHx: Gout, Dementia unclear type with unclear behavioral disturbance history, Hx prior retinal artery narrowing, Overweight, Macular degeneration, CKD stage III unclear subtype per GFR trending, HTN, HLD who presents to the [facility] ED on 05/20/2025 with history of onset of chest discomfort specifically left-sided beginning on day of presentation at approximately 8 AM with associated dizziness, lightheadedness occurring at rest and also with activity prompting eventual ED evaluation. Patient noted initially the chest discomfort actually started 2 to 3 days prior but was really primarily in the left shoulder and was intermittent not specifically worse with movement but then on day of presentation became more left-sided just underneath her left breast with the associated lightheadedness and dizziness but no associated dyspnea, diaphoresis, nausea or emesis. She notes at its worst it was rated 8 out of 10 in severity and described as an aching sensation. She notes currently in the ED her chest pain is since resolved. Her family does report that she would intermittently have lower blood pressures. 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 In the ED patient administered heparin bolus and maintained on heparin drip. [facility] Medical History Dementia Gout Overweight Chronic kidney disease (CKD), stage III (moderate) Stenosis of retinal artery Macular degeneration HLD (hyperlipidemia) HTN (hypertension) Home Medications ?Medication ?Instructions ?Recorded ?Last Taken ?Type hydrochlorothiazide 25 mg tablet 12.5 mg PO DAILY diuretic 12/17/15 10/06/22 History atorvastatin 40 mg tablet 40 mg PO QHS CHOLESTEROL 10/07/22 10/06/22 History clopidogrel 75 mg tablet 75 mg PO DAILY BLOOD THINNER 10/07/22 10/06/22 History ursodiol 250 mg tablet 250 mg PO BID #60 tabs 10/09/22 Unknown Rx allopurinol 100 mg tablet 100 mg PO DAILY 05/20/25 Unknown History memantine 10 mg tablet 10 mg PO BID 05/20/25 Unknown History trandolapril 4 mg tablet 4 mg PO DAILY 05/20/25 Unknown History Allergy/AdvReac Type Severity Reaction Status Date / Time aspirin AdvReac Unknown Verified 05/20/25 13:52 Family History Father Myocardial infarction Brother Myocardial infarction CVA (cerebral vascular accident) Mother Heart disease Surgical History H/O: hysterectomy History of knee replacement procedure of left knee History of spinal fusion Hx of cholecystectomy Social History household members: spouse Smoking Status: Never smoker alcohol intake: never substance use type: does not use ROS ROS Narrative Admission Review of Systems: CONSTITUTIONAL: No weight loss, fever, chills, + weakness or fatigue. HEENT: + Lightheadedness, dizziness. Eyes: No visual loss, blurred vision, double vision or yellow sclerae. Ears, Nose, Throat: No hearing loss, sneezing, congestion, runny nose or sore throat. SKIN: No rash or itching, lesions, wounds. CARDIOVASCULAR: + Chest pain, lightheadedness, dizziness. Palpitations, edema, orthopnea, syncopal events. RESPIRATORY: No shortness of breath, cough or sputum, wheezing, hemoptysis. GASTROINTESTINAL: No anorexia, nausea, vomiting or diarrhea, abdominal pain, melena, BRBPR. GENITOURINARY: No dysuria, frequency, urgency or retention. NEUROLOGICAL: + Lightheadedness, dizziness. No headache, syncope, paralysis, ataxia, numbness or tingling in the extremities, focal weakness, change in bowel or bladder control, seizure. MUSCULOSKELETAL: + muscle, back pain, joint pain or stiffness. HEMATOLOGIC: No anemia. + Easy bleeding/bruising. LYMPHATICS: No enlarged nodes. No history of splenectomy. PSYCHIATRIC: No history of depression or anxiety. ENDOCRINOLOGIC: No reports of sweating, cold or heat intolerance. No polyuria or polydipsia. ALLERGIES: No history of asthma, hives, eczema or rhinitis. Vital Signs Vital Signs Vital Signs: 05/20/25 13:50 05/20/25 14:30 05/20/25 14:45 Temperature 97.8 F Temperature Source Oral Pulse Rate 72 59 L 61 Respiratory Rate 18 17 19 H Blood Pressure 181/99 H 137/48 H 100/65 Blood Pressure Mean 126 65 76 Pulse Ox 98 100 98 Oxygen Delivery Method Room Air 05/20/25 14:56 05/20/25 15:26 05/20/25 15:35 Temperature Temperature Source Pulse Rate 60 Respiratory Rate 17 23 H Blood Pressure 107/78 113/75 Blood Pressure Mean 86 83 Pulse Ox 100 100 Oxygen Delivery Method Room Air 05/20/25 15:40 05/20/25 15:45 05/20/25 15:50 Temperature Temperature Source Pulse Rate 60 59 L 61 Respiratory Rate 16 17 21 H Blood Pressure 105/60 108/60 102/54 L Blood Pressure Mean 74 75 70 Pulse Ox 95 98 99 Oxygen Delivery Method 05/20/25 16:00 05/20/25 16:10 05/20/25 16:15 Temperature Temperature Source Pulse Rate 55 L 54 L 55 L Respiratory Rate 20 H 15 17 Blood Pressure 115/57 L 115/57 L 116/58 L Blood Pressure Mean 76 76 75 Pulse Ox 100 100 99 Oxygen Delivery Method Room Air 05/20/25 16:20 05/20/25 16:25 05/20/25 16:30 Temperature Temperature Source Pulse Rate 54 L 55 L 55 L Respiratory Rate 14 17 24 H Blood Pressure 118/59 L 97/76 112/63 Blood Pressure Mean 75 83 71 Pulse Ox 100 100 100 Oxygen Delivery Method 05/20/25 16:35 05/20/25 16:40 05/20/25 16:45 Temperature Temperature Source Pulse Rate 55 L 56 L 54 L Respiratory Rate 24 H 18 19 H Blood Pressure 109/95 H 107/64 110/59 L Blood Pressure Mean 102 78 74 Pulse Ox 100 100 100 Oxygen Delivery Method 05/20/25 16:50 05/20/25 16:55 05/20/25 17:00 Temperature Temperature Source Pulse Rate 55 L 55 L Respiratory Rate 18 19 H Blood Pressure 109/60 110/56 L 110/73 Blood Pressure Mean 75 71 84 Pulse Ox 98 99 99 Oxygen Delivery Method 05/20/25 17:05 Temperature Temperature Source Pulse Rate 59 L Respiratory Rate 27 H Blood Pressure 113/70 Blood Pressure Mean 75 Pulse Ox 100 Oxygen Delivery Method Weight Weight: 139 lb 8 oz Body Mass Index (BMI) 29.1 Physical Exam Narrative Physical Examination: General: Awake, alert, oriented x 3 and cooperative, seated upright in the ED bed, notes resolution of previous chest pain, occasional lightheadedness sensation. Skin: Normal color, normal turgor, no icterus, no cyanosis except occasional stage ecchymoses, abrasion. HEENT: AT/NC, EOMI, PERRLA, MMM, no carotid bruits or JVD noted. Lungs: CTA bilaterally, moderate effort, mild decrease BL bases, no rales, ronchi or wheezing. Heart: Regular rate and rhythm; no gallop, rub audible. Abdomen: Soft, NTTP, ND, mildly hyperactive BS, no HSM. Extremities: No cyanosis, clubbing, or edema. Neurological: Patient awake, alert, oriented as noted, cognitive function intact; pupils equally reactive to light and accommodation, cranial nerves grossly normal, moving all 4 extremities, no focal deficits, strength mildly to moderately globally creased Psychiatric: Affect appears fatigued otherwise normal, no acute evidence of depressive or anxiety feelings. Results Lab / Micro Data 05/20/25 14:25 05/20/25 14:25 Labs: Laboratory Results - last 24 hr 05/20/25 14:25: WBC 9.9, RBC 4.30, Hgb 13.3, Hct 40.0, MCV 93.0, MCH 30.9, MCHC 33.3, RDW Std Deviation 43.8, RDW Coeff of [place] 12.8, Plt Count 262, MPV 10.4, Immature Gran % (Auto) 0.300, Neut % (Auto) 60.8, Lymph % (Auto) 28.8, [place] % (Auto) 7.2, Eos % (Auto) 2.4, Baso % (Auto) 0.5, Absolute Neuts (auto) 6.0, Absolute Lymphs (auto) 2.84, Nucleated RBC % 0, D-Dimer Quant (PE/DVT) 0.27, Sodium 134, Potassium 3.4, Chloride 97 L, Carbon Dioxide 24.3, Anion Gap 13, BUN 18, Creatinine 1.09, Estim Creat Clear Calc 32.48 L, Est GFR (MDRD) Non-Af 50 L, BUN/Creatinine Ratio 16.6, Glucose 130 H, Calcium 9.5, Troponin T High Sens 105 H*, NT pro BNP II 942 Imaging Radiology Impression Chest X-Ray 05/20/25 14:58 IMPRESSION: No focal consolidations. Reading Location: [id number] Shoulder X-Ray 05/20/25 15:59 IMPRESSION: No acute osseous abnormality of the left shoulder. 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 Reading Location: [id number] Assessment & Plan Assessment/Plan (1) NSTEMI, initial episode of care: PLAN: Plan The patient is an 84 y/o F w/ PMHx: Gout, Dementia unclear type with unclear behavioral disturbance history, Hx prior retinal artery narrowing, Overweight, Macular degeneration, CKD stage III unclear subtype per GFR trending, HTN, HLD who presents to the [facility] ED on 05/20/2025 with history of onset of chest discomfort specifically left-sided beginning on day of presentation at approximately 8 AM with associated dizziness, lightheadedness occurring at rest and also with activity prompting eventual ED evaluation. #1. Chest Pain w/ Acute NSTEMI: EKG in ED w/ sinus bradycardia with right bundle brody block with no acute evidence of ischemia, CXR w/ no acute cardiopulmonary finding. Trop elevated, 105. Will admit to PCU, maintain on a monitored bed, continue serial cardiac enzymes and EKGs. Obtain magnesium level upon admission. Will continue heparin drip. Continue medical management w/ plavix, noted ASA allergy but attempting to clarify, add low-dose BB, continue home statin w/ AM FLP. ECHO requested. Cardiology consulted. Will judiciously hydrate with n.p.o. status at midnight in case of a.m. cardiac catheterization. Given lightheadedness sensation holding diuretic therapy and will obtain orthostatics. #2. Hyperglycemia, mild: No diabetic history, possibly stress response, admission glucose 130, if remains elevated low threshold to investigate further. #3. Hypertension: Continue home regimen including LAURA inhibitor with hold parameters given recent family report of possible low BPs intermittently, given presentation adding low-dose beta-juan diego if BP able to tolerate given #1 presentation, holding diuretic given family reported low blood pressure intermittently, PRN hydralazine. #4. Hyperlipidemia: Continue home statin regimen. AM FLP. #5. Chronic Kidney Disease Stage III, unclear subtype per GFR trending: Admission BUN/Cr 18/1.09, GFR 50, baseline renal function 0.8-1.0 primarily, repeat BMP in AM. #6. History of retinal artery narrowing: Continued on Plavix, statin, hypertensive regimen adjustments given #1 presentation as noted above. #7. Overweight: Weight loss and lifestyle changes encouraged. #8. Dementia with unclear type with unclear behavior disturbance history: Complicates presentation, maintain on home memantine regimen, case management consulted, encourage continued follow-up outpatient with neurology as previously arranged. #9. Gout: The patient on allopurinol regimen. #10. DVT prophylaxis: Heparin drip. #11. CODE status: Patient HCPOA is her /daughter and living will is currently in place. Full Code status. Charges/Coding Visit Charges Inpatient E&M: 17085 Init Hosp L3
[2025-05-20 17:27] LABS: Prothrombin Time (Protime)PT. 12.1 SECONDS (11.7-14.9)
[2025-05-20 17:28] LABS: Partial Thromboplast Time 27.6 Seconds (24.1-36.2)
[2025-05-20 17:36] LABS: Troponin T High Sens 2 HR 153 ng/L (<=14)
--- NOTE | 2025-05-20 17:39 | ED.RN ---
Critical troponin received from lab of 153. Dr. Piña notified.
--- OUTSIDE RECORDS SUMMARY | 2025-05-20 18:10 | XMS RPT_ITS | CCD ---
Author Organization [facility] Care Team Providers Care Assistant Grocery Name Role Phone Dr. Liane Stephenson Primary Care Provider [phone] Fabrizio Maier Emergency Provider Jaqueline, Dr. Ignacia Farley Admit Provider Dr. Ignacia Parsons Attending Provider Dr. Ignacia Parsons Other Provider Dr. Rafa Morrow Attending Provider Dr. Rafa Morrow Other Provider Friend, Dr. Golden Attending Provider [phone] Rafa Morrow Referring Provider Dr. Liane [...] (15 sources) Aspirin Drug Allergy 07-01-2021 Unknown [facility] Comment on above: PT HAS HX OF MACULAR DEGENERATION (1 source) Aspirin Drug Allergy 12-29-2024 [facility] Repository Medications Current Medications Medication Drug [...] Auto (Unsp spec) [#/Vol] 2.21 10*3/uL 0.83-4.51 [facility] Absolute neutrophil countOrd ered By: Liane Stephenson on 04-10-2025 Neutrophils (Bld) [#/Vol] 4.4 10*3/uL 2.0-7.7 [facility] Anion gap in Serum or Plasma Ordered By: Liane Stephenson on 04-10-2025 Anion gap [Moles/Vol] 12 mmol/L 5-15 [facility] Automated lymphocyte count a s percentage of total leukocytesOrdered By: Liane Stephenson on 04-10-2025 Lymphocytes/100 WBC Auto (Unsp spec) 29.1 % 19-41 [facility] BUN/creatinine ratioOrdered By: Liane Stephenson on 04-10-2025 Urea nitrogen/Creatinine [Mass ratio] 19.2 mg/mg 10-20 [facility] Basophil percentageOrdered B y: Liane Stephenson on 04-10-2025 Basophils/100 WBC (Bld) 0.9 % 0-1 [facility] Bilirubin, totalOrdered By: Liane Stephenson on 04-10-2025 Bilirubin [Mass/Vol] 0.38 mg/dL 0.00-1.30 [facility] CBC W/Diff, Automatedon Absolute Lymph 2.21 X10 3/uL Normal 0.83-4.51 [facility] Comment on above: Performed By: #### L 500.4050, L500.4100, L100.0100 #### [facility] [address] [place], [address] Absolute Neut 4.4 X10 3/uL Normal 2.0-7.7 [facility] Comment on above: Performed By: #### L 500.4050, L500.4100, L100.0100 #### [facility] [address] [place], [address] Basophils/100 WBC (Bld) 0.9 % Normal 0-1 [facility] Comment on above: Performed By: #### L 500.4050, L500.4100, L100.0100 #### [facility] [address] [place], [address] Eosinophils/100 WBC (Bld) 3.4 % Normal 0-5 [facility] Comment on above: Performed By: #### L 500.4050, L500.4100, L100.0100 #### [facility] [address] [place], [address] Erythrocyte distribution width (RBC) [Ratio] 13.2 % Normal 11.6-14.6 [facility] Comment on above: Performed By: #### L 500.4050, L500.4100, L100.0100 #### [facility] [address] [place], [address] Hematocrit (Bld) [Volume fraction] 40.5 % Normal 37-47 [facility] Comment on above: Performed By: #### L 500.4050, L500.4100, L100.0100 #### [facility] [address] [place], [address] Hemoglobin (Bld) [Mass/Vol] 13.3 g/dL Normal 12.0-15.0 [facility] Comment on above: Performed By: #### L 500.4050, L500.4100, L100.0100 #### [facility] [address] [place], [address] IG% 0.100 Normal 0.0-0.9 [facility] Comment on above: Result Comment: IG% - Immature Granulocytes (promyelocytes, myelocytes and metamyelocytes) > 1% indicates that a LEFT SHIFT is Present. Performed By: #### L 500.4050, L500.4100, L100.0100 #### [facility] [address] [place], [address] Lymphocytes/100 WBC (Bld) 29.1 % Normal 19-41 [facility] Comment on above: Performed By: #### L 500.4050, L500.4100, L100.0100 #### [facility] [address] [place], [address] MCH (RBC) [Entitic mass] 30.9 pg Normal 27.0-32.0 [facility] Comment on above: Performed By: #### L 500.4050, L500.4100, L100.0100 #### [facility] [address] [place], [address] MCHC (RBC) [Mass/Vol] 32.8 g/dL Normal 32-36 [facility] Comment on above: Performed By: #### L 500.4050, L500.4100, L100.0100 #### [facility] [address] [place], [address] MCV (RBC) [Entitic vol] 94.2 fL Normal 81-99 [facility] Comment on above: Performed By: #### L 500.4050, L500.4100, L100.0100 #### [facility] [address] [place], [address] Monocytes/100 WBC (Bld) 8.6 % Normal 0-10 [facility] Comment on above: Performed By: #### L 500.4050, L500.4100, L100.0100 #### [facility] [address] [place], [address] Neutrophils/100 WBC (Bld) 57.9 % Normal 47-70 [facility] Comment on above: Performed By: #### L 500.4050, L500.4100, L100.0100 #### [facility] [address] [place], [address] Nucleated RBC (Bld) [#/Vol] 0 10*3/uL Normal 0-5 [facility] Comment on above: Performed By: #### L 500.4050, L500.4100, L100.0100 #### [facility] [address] [place], [address] Platelet mean volume (Bld) [Entitic vol] 9.7 fL Normal 6.2-12.0 [facility] Comment on above: Performed By: #### L 500.4050, L500.4100, L100.0100 #### [facility] [address] [place], [address] Platelets (Bld) [#/Vol] 316 10*3/uL Normal 150-450 [facility] Comment on above: Performed By: #### L 500.4050, L500.4100, L100.0100 #### [facility] [address] [place], [address] RBC (Bld) [#/Vol] 4.30 10*6/uL Normal 4.2-5.4 [facility] Comment on above: Performed By: #### L 500.4050, L500.4100, L100.0100 #### [facility] [address] [place], [address] RDW SD 45.0 fl High 35.1-43.9 [facility] Comment on above: Performed By: #### L 500.4050, L500.4100, L100.0100 #### [facility] [address] [place], [address] WBC (Bld) [#/Vol] 7.6 10*3/uL Normal 4.4-11.0 [facility] Comment on above: Performed By: #### L 500.4050, L500.4100, L100.0100 #### [facility] [address] [place], [address] Calculated very low density lipoprotein (VLDL) cholesterol measurementOrdered By: Liane Stephenson on 04-10-2025 Calculated very low density lipoprotein (VLDL) cholesterol measurement 19 mg/dL 5-40 [facility] Carbon dioxide, total [Moles /volume] in Central venous bloodOrdered By: Liane Stephenson on 04-10-2025 CO2 [Moles/Vol] 23.2 mmol/L 21.0-32.0 [facility] Chloride assayOrdered By: Radha Stephenson on 04-10-2025 Chloride [Moles/Vol] 105 mmol/L 98-108 [facility] Comprehensive Metabolic Prof ilon 04-10-2025 Albumin [Mass/Vol] 4.2 g/dL Normal 3.4-4.8 [facility] Comment on above: Performed By: #### L 500.4050, L500.4100, L100.0100 #### [facility] [address] [place], [address] Albumin/Globulin [Mass ratio] 1.5 {ratio} Normal 0.9-2.4 [facility] Comment on above: Performed By: #### L 500.4050, L500.4100, L100.0100 #### [facility] [address] [place], [address] ALK PHOS 61 U/L Normal 35-104 [facility] Comment on above: Performed By: #### L 500.4050, L500.4100, L100.0100 #### [facility] [address] [place], [address] ALT [Catalytic activity/Vol] 12 U/L Normal <=34 [facility] Comment on above: Performed By: #### L 500.4050, L500.4100, L100.0100 #### [facility] [address] [place], [address] AST [Catalytic activity/Vol] 24 U/L Normal <=31 [facility] Comment on above: Performed By: #### L 500.4050, L500.4100, L100.0100 #### [facility] [address] [place], [address] Bilirubin [Mass/Vol] 0.38 mg/dL Normal 0.00-1.30 [facility] Comment on above: Performed By: #### L 500.4050, L500.4100, L100.0100 #### [facility] [address] [place], [address] BUN/CRE 19.2 RATIO Normal 10-20 [facility] Comment on above: Performed By: #### L 500.4050, L500.4100, L100.0100 #### [facility] [address] [place], [address] Calcium [Mass/Vol] 9.0 mg/dL Normal 7.6-11.0 [facility] Comment on above: Performed By: #### L 500.4050, L500.4100, L100.0100 #### [facility] [address] [place], [address] Chloride [Moles/Vol] 105 mmol/L Normal 98-108 [facility] Comment on above: Performed By: #### L 500.4050, L500.4100, L100.0100 #### [facility] [address] [place], [address] CO2 [Moles/Vol] 23.2 mmol/L Normal 21.0-32.0 [facility] Comment on above: Performed By: #### L 500.4050, L500.4100, L100.0100 #### [facility] [address] [place], [address] Creatinine [Mass/Vol] 1.02 mg/dL Normal 0.70-1.20 [facility] Comment on above: Performed By: #### L 500.4050, L500.4100, L100.0100 #### [facility] [address] [place], [address] GAP 12 Normal 5-15 [facility] Comment on above: Performed By: #### L 500.4050, L500.4100, L100.0100 #### [facility] [address] [place], [address] GFR/1.73 sq M.predicted among non-blacks MDRD (S/P/Bld) [Vol rate/Area] 55 mL/min/{1.73_m2} Low >60 [facility] Comment on above: Result Comment: mL/m in/1.73m2 CKD-EPI Creatinine Equation (2020) Performed By: #### L 500.4050, L500.4100, L100.0100 #### [facility] [address] [place], [address] Globulin (S) [Mass/Vol] 2.9 g/dL Normal 2.2-4.2 [facility] Comment on above: Performed By: #### L 500.4050, L500.4100, L100.0100 #### [facility] [address] [place], [address] Glucose [Mass/Vol] 91 mg/dL Normal 70-99 [facility] Comment on above: Performed By: #### L 500.4050, L500.4100, L100.0100 #### [facility] [address] [place], [address] Potassium [Moles/Vol] 4.0 mmol/L Normal 3.3-5.1 [facility] Comment on above: Performed By: #### L 500.4050, L500.4100, L100.0100 #### [facility] [address] [place], [address] Sodium [Moles/Vol] 140 mmol/L Normal 133-145 [facility] Comment on above: Performed By: #### L 500.4050, L500.4100, L100.0100 #### [facility] [address] [place], [address] T PROT 7.1 g/dL Normal 5.9-8.4 [facility] Comment on above: Performed By: #### L 500.4050, L500.4100, L100.0100 #### [facility] [address] [place], [address] Urea nitrogen [Mass/Vol] 20 mg/dL High 4-19 [facility] Comment on above: Performed By: #### L 500.4050, L500.4100, L100.0100 #### [facility] [address] [place], [address] Eosinophil percentageOrdered By: Liane Stephenson on 04-10-2025 Eosinophils/100 WBC (Bld) 3.4 % 0-5 [facility] Erythrocyte distribution wid th ratioOrdered By: Liane Stephenson on 04-10-2025 Erythrocyte distribution width (RBC) [Ratio] 13.2 % 11.6-14.6 [facility] Erythrocyte distribution wid th standard deviationOrdered By: Liane Stephenson on 04-10-2025 Erythrocyte distribution width (RBC) [Ratio] 45.0 fl High 35.1-43.9 [facility] Glomerular filtration rate ( GFR) estimation/1.73 sq m using serum, plasma, or whole bOrdered By: Liane Stephenson on 04-10-2025 GFR/1.73 sq M.predicted among non-blacks MDRD (S/P/Bld) [Vol rate/Area] 55 mL/min/{1.73_m2} Low >60 [facility] Comment on above: mL/min/1.73m2 CKD-EP I Creatinine Equation (2020) Hematocrit Auto (Bld) [Volum e fraction]Ordered By: Linae Stephenson on 04-10-2025 Hematocrit (Bld) [Volume fraction] 40.5 % 37-47 [facility] Hemoglobin measurementOrdere d By: Liane Stephenson on 04-10-2025 Hemoglobin (Bld) [Mass/Vol] 13.3 g/dL 12.0-15.0 [facility] Immature granulocytes/100 WB C Auto (Bld)Ordered By: Liane Stephenson on 04-10-2025 Immature granulocytes/100 WBC (Bld) 0.100 % 0.0-0.9 [facility] Comment on above: IG% - Immature Granu locytes (promyelocytes, myelocytes and metamyelocytes) > 1% indicates that a LEFT SHIFT is Present. LDL calc ser/plasOrdered By: Liane Stephenson on 04-10-2025 Cholesterol in LDL [Mass/Vol] 89 mg/dL [facility] Comment on above: Kcbvbrzacv=862-197 m g/dL & Higher Bosg=817 mg/dL or greater Laboratory - Chemistry and C hemistry - challengeOrdered By: Liane Stephenson on 04-10-2025 AST [Catalytic activity/Vol] 24 U/L <32 [facility] Lipid Profileon 04-10-2025 CHOL:HDL 2.66 Normal [facility] Comment on above: Performed By: #### L 500.4050, L500.4100, L100.0100 #### [facility] [address] [place], [address] Cholesterol [Mass/Vol] 173 mg/dL Normal <=200 [facility] Comment on above: Result Comment: Chol esterol level, Desirable <200 mg/dL Borderline high cholesterol 200-239 mg/dL High cholesterol >=240 mg/dL Recommendations of the NCEP Adult Treatment Panel for the following risk-cutoff thresholds for the [place] population. Performed By: #### L 500.4050, L500.4100, L100.0100 #### [facility] [address] [place], [address] Cholesterol in HDL [Mass/Vol] 65 mg/dL Normal [facility] Comment on above: Result Comment: Francoise onal Cholesterol Education Program (NCEP) guidelines: <40 mg/dL: Low HDL-cholesterol (major risk factor for CHD) >= 60 mg/dL: High HDL-cholesterol (negative risk factor for CHD) HDL-cholesterol is affected by a number of factors, e.g. smoking, exercise, hormones, sex and age. Performed By: #### L 500.4050, L500.4100, L100.0100 #### [facility] [address] [place], [address] Cholesterol in LDL [Mass/Vol] 89 mg/dL Normal [facility] Comment on above: Result Comment: Bord odjoyc=621-748 mg/dL Higher Yi[place]=219 mg/dL or greater Performed By: #### L 500.4050, L500.4100, L100.0100 #### [facility] [address] [place], [address] Cholesterol in VLDL [Mass/Vol] 19 mg/dL Normal 5-40 [facility] Comment on above: Performed By: #### L 500.4050, L500.4100, L100.0100 #### [facility] [address] [place], [address] Triglyceride [Mass/Vol] 95 mg/dL Normal [facility] Comment on above: Result Comment: The drugs N-Acetylcysteine and Metamizole may falsely depress this assay. Normal range: <150 mg/dL Borderline High: 150-199 mg/dL High: 200-499 mg/dL Very High: >500 mg/dL Performed By: #### L 500.4050, L500.4100, L100.0100 #### [facility] [place], [address] MCV (mean corpuscular volume ) determinationOrdered By: Liane Stephenson on 04-10-2025 MCV (RBC) [Entitic vol] 94.2 fL 81-99 [facility] Mean corpuscular hemoglobin (MCH) determinationOrdered By: Liane Stephenson on 04-10-2025 MCH (RBC) [Entitic mass] 30.9 pg 27.0-32.0 [facility] Mean corpuscular hemoglobin concentration (MCHC) determinationOrdered By: Liane Stephenson on 04-10-2025 MCHC (RBC) [Mass/Vol] 32.8 g/dL 32-36 [facility] Mean platelet volume determi nationOrdered By: Liane Stephenson on 04-10-2025 Platelet mean volume (Bld) [Entitic vol] 9.7 fL 6.2-12.0 [facility] Monocyte percentageOrdered B y: Liane Stephenson on 04-10-2025 Monocytes/100 WBC (Bld) 8.6 % 0-10 [facility] Neutrophil percentageOrdered By: Liane Stephenson on 04-10-2025 Neutrophils/100 WBC (Bld) 57.9 % 47-70 [facility] Nucleated red blood cell per centageOrdered By: Liane Stephenson on 04-10-2025 Nucleated RBC/100 WBC (Bld) [Ratio] 0 % 0-5 [facility] Platelet countOrdered By: Radha Stephenson on 04-10-2025 Platelets (Bld) [#/Vol] 316 10*3/uL 150-450 [facility] Potassium measurement (mass/ volume)Ordered By: Liane Stephenson on 04-10-2025 Potassium (Unsp spec) [Mass/Vol] 4.0 mmol/L 3.3-5.1 [facility] RBC Auto (Bld) [#/Vol]Ordere d By: Liane Stephenson on 04-10-2025 RBC (Bld) [#/Vol] 4.30 10*6/uL 4.2-5.4 [facility] Screening total cholesterol/ high density lipoprotein (HDL) cholesterol ratioOrdered By: Liane Stephenson on 04-10-2025 Cholesterol.total/Choles terol in HDL [Mass ratio] 2.66 {ratio} [facility] Serum creatinine measurement (mass/volume)Ordered By: Liane Stephenson on 04-10-2025 Creatinine [Mass/Vol] 1.02 mg/dL 0.70-1.20 [facility] Serum globulin measurementOr dered By: Liane Stephenson on 04-10-2025 Globulin (S) [Mass/Vol] 2.9 g/dL 2.2-4.2 [facility] Serum glucose measurement (m ass/volume)Ordered By: Liane Stephenson on 04-10-2025 Glucose [Mass/Vol] 91 mg/dL 70-99 [facility] Serum or plasma alanine núñez otransferase (ALT) measurementOrdered By: Liane Stephenson on 04-10-2025 ALT [Catalytic activity/Vol] 12 U/L <35 [facility] Serum or plasma albumin osmel urement (mass/volume)Ordered By: Liane Stephenson on 04-10-2025 Albumin [Mass/Vol] 4.2 g/dL 3.4-4.8 [facility] Serum or plasma albumin/glob ulin mass ratioOrdered By: Liane Stephenson on 04-10-2025 Albumin/Globulin [Mass ratio] 1.5 {ratio} 0.9-2.4 [facility] Serum or plasma alkaline lee ann sphatase measurementOrdered By: Liane Stephenson on 04-10-2025 ALP [Catalytic activity/Vol] 61 U/L 35-104 [facility] Serum or plasma calcium osmel urement (mass/volume)Ordered By: Liane Stephenson on 04-10-2025 Calcium [Mass/Vol] 9.0 mg/dL 7.6-11.0 [facility] Serum or plasma cholesterol in HDL measurement (mass/volume)Ordered By: Liane Stephenson on 04-10-2025 Cholesterol in HDL [Mass/Vol] 65 mg/dL >40 [facility] Comment on above: National Cholesterol Education Program (NCEP) guidelines:<40 mg/dL: Low HDL-cholesterol (major risk factor for CHD)>= 60 mg/dL: High HDL-cholesterol (negative risk factor for CHD)HDL-cholesterol is affected by a number of factors, e.g. smoking, exercise, hormones, sex and age. Serum or plasma cholesterol measurement (mass/volume)Ordered By: Liane Stephenson on 04-10-2025 Cholesterol [Mass/Vol] 173 mg/dL <[address] [facility] Comment on above: Cholesterol level, D esirable <200 mg/dLBorderline high cholesterol 200-239 mg/dLHigh cholesterol >=240 mg/dLRecommendations of the NCEP Adult Treatment Panel for the following risk-cutoff thresholds for the [place] population. Serum or plasma urea nitroge n measurement (mass/volume)Ordered By: Liane Stephenson on 04-10-2025 Urea nitrogen [Mass/Vol] 20 mg/dL High 4-19 [facility] Sodium levelOrdered By: Liane Stephenson on 04-10-2025 Sodium [Moles/Vol] 140 mmol/L 133-145 [facility] Total proteinOrdered By: Roula Stephenson on 04-10-2025 Protein [Mass/Vol] 7.1 g/dL 5.9-8.4 [facility] Triglycerides measurementOrd ered By: Liane Stephenson on 04-10-2025 Triglyceride [Mass/Vol] 95 mg/dL <199 [facility] Comment on above: The drugs N-Acetylcy steine and Metamizole may falsely depress this assay. Normal range: <150 mg/dLBorderline High: 150-199 mg/dLHigh: 200-499 mg/dLVery High: >500 mg/dL White blood cell (WBC) count Ordered By: Liane Stephenson on 04-10-2025 WBC (Bld) [#/Vol] 7.6 10*3/uL 4.4-11.0 [facility] HIP, UNI W/ Pelvis 2-3 Views on 08-12-2024 HIP, UNI W/ Pelvis 2-3 Views [facility] [address] [place] [address] HIP, UNI W/ Pelvis 2-3 Views MR#: [id number] Acct: [id number] Name: MELYSSA MATA Rep #: [id number] : 1940 F 83 From: Hair mattson MD PCP: Dr. Liane Stephenson DO Status: REG CLI Study: HIP, UNI W/ Pelvis 2-3 Views Date of Exam: 10/31 Exam# [id number] Ordering [place]: [place] [id number] STUDY: X-RAY - PELVIS AND RIGHT HIP [...] Arash Cruz MD; Dr. 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 Normal [facility] Absolute lymphocyte countOrd ered By: Carlene Arriaga on 12-08-2023 Lymphocytes Auto (Unsp spec) [#/Vol] 2.17 10*3/uL 0.83-4.51 [facility] Automated lymphocyte count a s percentage of total leukocytesOrdered By: Carlene Arriaga on 12-08-2023 Lymphocytes/100 WBC Auto (Unsp spec) 22.1 % 19-41 [facility] Basophil percentageOrdered B y: Carlene Arriaga on 12-08-2023 Basophils/100 WBC (Bld) 0.5 % 0-1 [facility] Bilirubin [Mass/Vol] 0.40 mg/dL 0.20-1.00 [facility] Comment on above: For patients on eltr ombopag therapy, use of Dimension [place] TBIL is not recommended. Chloride [Moles/Vol] 105 mmol/L 98-107 [facility] Eosinophils/100 WBC (Bld) 0.7 % 0-5 [facility] Glucose [Mass/Vol] 118 mg/dL 74-106 [facility] Comment on above: Fasting Glucose resu lt from 100 to 125 mg/dL suggests IMPAIRED HOMEOSTASIS per A.D.A. criteria. Hemoglobin (Bld) [Mass/Vol] 12.3 g/dL 12.0-15.0 [facility] Monocytes/100 WBC (Bld) 8.7 % 0-10 [facility] Neutrophils (Bld) [#/Vol] 6.6 10*3/uL 2.0-7.7 [facility] Neutrophils/100 WBC (Bld) 67.7 % 47-70 [facility] Potassium [Moles/Vol] 4.0 mmol/L 3.5-5.1 [facility] Protein [Mass/Vol] 6.9 g/dL 6.4-8.2 [facility] Sodium [Moles/Vol] 136 mmol/L 136-145 [facility] WBC (Bld) [#/Vol] 9.8 10*3/uL 4.4-11.0 [facility] Determination of erythrocyte mean corpuscular volume (MCV)Ordered By: Carlene Arriaga on 12-08-2023 MCV (RBC) [Entitic vol] 97.9 fL 81-99 [facility] Erythrocyte distribution wid th ratioOrdered By: Carlene Arriaga on 12-08-2023 Erythrocyte distribution width (RBC) [Ratio] 13.1 % 11.6-14.6 [facility] Erythrocyte distribution wid th standard deviationOrdered By: Carlene Arriaga on 12-08-2023 Erythrocyte distribution width (RBC) [Entitic vol] 47.0 fL 35.1-43.9 [facility] Erythrocyte sedimentation ra teOrdered By: Carlenefredy Arriaga on 12-08-2023 ESR (Bld) [Velocity] 16 mm/h 0-30 [facility] Hematocrit Auto (Bld) [Volum e fraction]Ordered By: Carlene Arriaga on 12-08-2023 Hematocrit (Bld) [Volume fraction] 38.2 % 37-47 [facility] Immature granulocytes/100 WB C Auto (Bld)Ordered By: [place] Bart on 12-08-2023 Immature granulocytes/100 WBC (Bld) 0.300 % 0.0-0.9 [facility] Comment on above: IG% - Immature Granu locytes (promyelocytes, myelocytes and metamyelocytes) > 1% indicates that a LEFT SHIFT is Present. Laboratory - Chemistry and C hemistry - challengeOrdered By: Carlenefredy Arriaga on 12-08-2023 Albumin/Globulin [Mass ratio] 1.0 {ratio} 0.9-2.4 [facility] ALP [Catalytic activity/Vol] 54 U/L 45-117 [facility] ALT [Catalytic activity/Vol] 18 U/L 13-56 [facility] CO2 [Moles/Vol] 26.0 mmol/L 21.0-32.0 [facility] Globulin (S) [Mass/Vol] 3.5 g/dL 2.2-4.2 [facility] Urea nitrogen/Creatinine [Mass ratio] 20.6 mg/mg 10-20 [facility] Laboratory - Hematology and Cell countsOrdered By: Carlenefredy Arriaga on 12-08-2023 MCH (RBC) [Entitic mass] 31.5 pg 27.0-32.0 [facility] MCHC (RBC) [Mass/Vol] 32.2 g/dL 32-36 [facility] Nucleated RBC/100 WBC (Bld) [Ratio] 0 % 0-5 [facility] Platelets (Bld) [#/Vol] 264 10*3/uL 150-450 [facility] No Panel InformationOrdered By: Carlene Arriaga on 12-08-2023 C-Reactive Protein Extended Range < 2.90 mg/L 0.0-3.0 [facility] Comment on above: C-Reactive Protein ( CRP) provides useful information for thediagnosis, therapy and monitoring of inflammatory processesand associated diseases. For the evaluation of Relative Riskfor Cardiovascular Disease, a High Sensitivity CRP (HSCRP)should be ordered. D-Dimer Quantitative (PE/DVT) < 0.27 FEU/ug/m 0.27-0.49 [facility] Comment on above: NORMAL D-Dimer level (<0.50) indicates no DVT or PE. Estimated GFR (MDRD) Amer 75 mL/min >60 [facility] Comment on above: GFR Calc Estimated GFR (MDRD) Non-Af Amer 62 mL/min >60 [facility] Comment on above: Non- GFR Calc Platelet mean volume [place]-Ec ker (Bld) [Entitic vol]Ordered By: Carlene Arriaga on 12-08-2023 Platelet mean volume (Bld) [Entitic vol] 10.1 fL 6.2-12.0 [facility] RBC Auto (Bld) [#/Vol]Ordere d By: Carlene Arriaga on 12-08-2023 RBC (Bld) [#/Vol] 3.90 10*6/uL 4.2-5.4 [facility] Serum or plasma calcium osmel urement (mass/volume)Ordered By: Carlene Arriaga on 12-08-2023 Calcium [Mass/Vol] 9.1 mg/dL 8.5-10.1 [facility] Serum or plasma creatinine m easurement (mass/volume)Ordered By: Carlene Arriaga on 12-08-2023 Creatinine [Mass/Vol] 0.92 mg/dL 0.55-1.02 [facility] Comment on above: The validity of the calculated GFR & GFRAA in patients over 70 years has not been determined. Clinical correlation is essential. Serum or plasma urea nitroge n measurement (mass/volume)Ordered By: Carlene Arriaga on 12-08-2023 Urea nitrogen [Mass/Vol] 19 mg/dL 7-18 [facility] Thin prep Papanicolaou smear with manual screeningOrdered By: Carlene Arriaga on 12-08-2023 Thin prep Papanicolaou smear with manual screening 3.4 g/dL 3.2-5.0 [facility] Thin prep Papanicolaou smear with manual screening 15 U/L 15-37 [facility] Thin prep Papanicolaou smear with manual screening 5 5-15 [facility] Basophil percentageOrdered B y: Liane Stephenson on 03-24-2023 Bilirubin [Mass/Vol] 0.30 mg/dL 0.20-1.00 [facility] Comment on above: For patients on eltr ombopag therapy, use of Dimension [place] TBIL is not recommended. Chloride [Moles/Vol] 108 mmol/L 98-107 [facility] Glucose [Mass/Vol] 84 mg/dL 74-106 [facility] Potassium [Moles/Vol] 4.0 mmol/L 3.5-5.1 [facility] Protein [Mass/Vol] 7.3 g/dL 6.4-8.2 [facility] Sodium [Moles/Vol] 141 mmol/L 136-145 [facility] Laboratory - Chemistry and C hemistry - challengeOrdered By: Liane Stephenson on 03-24-2023 ALP [Catalytic activity/Vol] 76 U/L 45-117 [facility] ALT [Catalytic activity/Vol] 24 U/L 13-56 [facility] CO2 [Moles/Vol] 27.0 mmol/L 21.0-32.0 [facility] Globulin (S) [Mass/Vol] 3.9 g/dL 2.2-4.2 [facility] Urea nitrogen/Creatinine [Mass ratio] 23.3 mg/mg 10-20 [facility] No Panel InformationOrdered By: Liane Stephenson on 03-24-2023 Estimated GFR (MDRD) Amer 66 mL/min >60 [facility] Comment on above: GFR Calc Estimated GFR (MDRD) Non-Af Amer 55 mL/min >60 [facility] Comment on above: Non- GFR Calc Serum or plasma albumin osmel urement (mass/volume)Ordered By: Liane Stephenson on 05-17-2023 Albumin [Mass/Vol] 3.4 g/dL 3.2-5.0 [facility] Serum or plasma albumin/glob ulin mass ratioOrdered By: Liane Stephenson on 03-24-2023 Albumin/Globulin [Mass ratio] 0.9 {ratio} 0.9-2.4 [facility] Serum or plasma calcium osmel urement (mass/volume)Ordered By: Liane Stephenson on 03-24-2023 Calcium [Mass/Vol] 9.4 mg/dL 8.5-10.1 [facility] Serum or plasma creatinine m easurement (mass/volume)Ordered By: Liane Stephenson on 03-24-2023 Creatinine [Mass/Vol] 1.03 mg/dL 0.55-1.02 [facility] Comment on above: The validity of the calculated GFR & GFRAA in patients over 70 years has not been determined. Clinical correlation is essential. Serum or plasma urea nitroge n measurement (mass/volume)Ordered By: Liane Stephenson on 03-24-2023 Urea nitrogen [Mass/Vol] 24 mg/dL 7-18 [facility] Serum or plasma uric acid me asurement (mass/volume)Ordered By: Liane Stephenson on 03-24-2023 Urate [Mass/Vol] 5.8 mg/dL 2.6-6.0 [facility] Comment on above: The drugs N-Acetylcy steine and Metamizole may falsely depress this assay. Thin prep Papanicolaou smear with manual screeningOrdered By: Liane Stephenson on 03-24-2023 Thin prep Papanicolaou smear with manual screening 24 U/L 15-37 [facility] Thin prep Papanicolaou smear with manual screening 6 5-15 [facility] Basophil percentageOrdered B y: Dr. Stephenson on 02-08-2023 Bilirubin [Mass/Vol] 0.30 mg/dL 0.20-1.00 [facility] Comment on above: For patients on eltr ombopag therapy, use of Dimension [place] TBIL is not recommended. Chloride [Moles/Vol] 109 mmol/L 98-107 [facility] Glucose [Mass/Vol] 93 mg/dL 74-106 [facility] Potassium [Moles/Vol] 4.4 mmol/L 3.5-5.1 [facility] Protein [Mass/Vol] 7.8 g/dL 6.4-8.2 [facility] Sodium [Moles/Vol] 141 mmol/L 136-145 [facility] Erythrocyte sedimentation ra teOrdered By: Dr. Stephenson on 02-08-2023 ESR (Bld) [Velocity] 15 mm/h 0-30 [facility] Laboratory - Chemistry and C hemistry - challengeOrdered By: Dr. Stephenson on 02-08-2023 ALP [Catalytic activity/Vol] 49 U/L 45-117 [facility] ALT [Catalytic activity/Vol] 21 U/L 13-56 [facility] CO2 [Moles/Vol] 26.0 mmol/L 21.0-32.0 [facility] Globulin (S) [Mass/Vol] 4.2 g/dL 2.2-4.2 [facility] Urea nitrogen/Creatinine [Mass ratio] 17.6 mg/mg 10-20 [facility] No Panel InformationOrdered By: Dr. Stephenson on 02-08-2023 Estimated GFR (MDRD) Amer 67 mL/min >60 [facility] Comment on above: GFR Calc Estimated GFR (MDRD) Non-Af Amer 55 mL/min >60 [facility] Comment on above: Non- GFR Calc Serum or plasma C reactive p rotein measurement (mass/volume)Ordered By: Dr. Stephenson on 02-08-2023 CRP [Mass/Vol] mg/L 0.0-3.0 [facility] Comment on above: C-Reactive Protein ( CRP) provides useful information for thediagnosis, therapy and monitoring of inflammatory processesand associated diseases. For the evaluation of Relative Riskfor Cardiovascular Disease, a High Sensitivity CRP (HSCRP)should be ordered. Serum or plasma albumin osmel urement (mass/volume)Ordered By: Dr. Stephenson on 02-08-2023 Albumin [Mass/Vol] 3.6 g/dL 3.2-5.0 [facility] Serum or plasma albumin/glob ulin mass ratioOrdered By: Dr. Stephenson on 02-08-2023 Albumin/Globulin [Mass ratio] 0.9 {ratio} 0.9-2.4 [facility] Serum or plasma calcium osmel urement (mass/volume)Ordered By: Dr. Stephenson on 02-08-2023 Calcium [Mass/Vol] 9.5 mg/dL 8.5-10.1 [facility] Serum or plasma creatinine m easurement (mass/volume)Ordered By: Dr. Stephenson on 02-08-2023 Creatinine [Mass/Vol] 1.02 mg/dL 0.55-1.02 [facility] Comment on above: The validity of the calculated GFR & GFRAA in patients over 70 years has not been determined. Clinical correlation is essential. Serum or plasma urea nitroge n measurement (mass/volume)Ordered By: Dr. Stephenson on 02-08-2023 Urea nitrogen [Mass/Vol] 18 mg/dL 7-18 [facility] Serum or plasma uric acid me asurement (mass/volume)Ordered By: Dr. Stephenson on 02-08-2023 Urate [Mass/Vol] 6.6 mg/dL 2.6-6.0 [facility] Comment on above: The drugs N-Acetylcy steine and Metamizole may falsely depress this assay. Thin prep Papanicolaou smear with manual screeningOrdered By: Dr. Stephenson on 02-08-2023 Thin prep Papanicolaou smear with manual screening 23 U/L 15-37 [facility] Thin prep Papanicolaou smear with manual screening 6 5-15 [facility] Absolute lymphocyte countOrd ered By: Dr. Pugh on 01-01-2023 Lymphocytes Auto (Unsp spec) [#/Vol] 3.29 10*3/uL 0.83-4.51 [facility] Basophil percentageOrdered B y: Dr. Pugh on 01-01-2023 Basophils/100 WBC (Bld) 0.7 % 0-1 [facility] Eosinophils/100 WBC (Bld) 2.7 % 0-5 [facility] Neutrophils (Bld) [#/Vol] 4.6 10*3/uL 2.0-7.7 [facility] Neutrophils/100 WBC (Bld) 50.4 % 47-70 [facility] WBC (Bld) [#/Vol] 9.0 10*3/uL 4.4-11.0 [facility] Blood erythrocytes count (nu mber/volume)Ordered By: Dr. Pugh on 01-01-2023 RBC (Bld) [#/Vol] 4.59 10*6/uL 4.2-5.4 [facility] Blood hemoglobin measurement (mass/volume)Ordered By: Dr. Pugh on 01-01-2023 Hemoglobin (Bld) [Mass/Vol] 13.9 g/dL 12.0-15.0 [facility] Blood lymphocytes/100 leukoc ytesOrdered By: Dr. Pugh on 01-01-2023 Lymphocytes/100 WBC (Bld) 36.5 % 19-41 [facility] Blood monocytes/100 leukocyt esOrdered By: Dr. Pugh on 01-01-2023 Monocytes/100 WBC (Bld) 9.6 % 0-10 [facility] Blood platelet mean volumeOr dered By: Dr. Pugh on 01-01-2023 Platelet mean volume (Bld) [Entitic vol] 9.6 fL 6.2-12.0 [facility] Determination of erythrocyte mean corpuscular volume (MCV)Ordered By: Dr. Pugh on 01-01-2023 MCV (RBC) [Entitic vol] 92.8 fL 81-99 [facility] Hematocrit Auto (Bld) [Volum e fraction]Ordered By: Dr. Pugh on 01-01-2023 Hematocrit (Bld) [Volume fraction] 42.6 % 37-47 [facility] - Hematology and Cell countsOrdered By: Dr. Pugh on 01-01-2023 Erythrocyte distribution width (RBC) [Entitic vol] 44.2 fL 35.1-43.9 [facility] Erythrocyte distribution width (RBC) [Ratio] 12.9 % 11.6-14.6 [facility] Immature granulocytes/100 WBC (Bld) 0.100 % 0.0-0.9 [facility] Comment on above: IG% - Immature Granu locytes (promyelocytes, myelocytes and metamyelocytes) > 1% indicates that a LEFT SHIFT is Present. MCH (RBC) [Entitic mass] 30.3 pg 27.0-32.0 [facility] Nucleated RBC/100 WBC (Bld) [Ratio] 0 % 0-5 [facility] MCHC Auto (RBC) [Mass/Vol]Or dered By: Dr. Pugh on 01-01-2023 MCHC (RBC) [Mass/Vol] 32.6 g/dL 32-36 [facility] No Panel InformationOrdered By: Dr. Pugh on 01-01-2023 D-Dimer Quantitative (PE/DVT) 0.36 FEU/ug/m 0.27-0.49 [facility] Comment on above: NORMAL D-Dimer level (<0.50) indicates no DVT or PE. Platelets bldOrdered By: Dr. Pugh on 01-01-2023 Platelets (Bld) [#/Vol] 258 10*3/uL 150-450 [facility] Basophil percentageOrdered B y: Dr. Stephenson on 10-14-2022 Bilirubin [Mass/Vol] 0.40 mg/dL 0.20-1.00 [facility] Comment on above: For patients on eltr ombopag therapy, use of Dimension [place] TBIL is not recommended. Protein [Mass/Vol] 7.3 g/dL 6.4-8.2 [facility] Direct bilirubinOrdered By: Dr. Stephenson on 10-14-2022 Bilirubin.direct [Mass/Vol] 0.11 mg/dL 0.00-0.30 [facility] - Chemistry and C hemistry - challengeOrdered By: Dr. Stephenson on 10-14-2022 ALP [Catalytic activity/Vol] 86 U/L 45-117 [facility] ALT [Catalytic activity/Vol] 174 U/L 13-56 [facility] Globulin (S) [Mass/Vol] 3.9 g/dL 2.2-4.2 [facility] Serum or plasma albumin osmel urement (mass/volume)Ordered By: Dr. Stephenson on 10-14-2022 Albumin [Mass/Vol] 3.4 g/dL 3.2-5.0 [facility] Thin prep Papanicolaou smear with manual screeningOrdered By: Dr. Stephenson on 10-14-2022 Thin prep Papanicolaou smear with manual screening 32 U/L 15-37 [facility] Basophil percentageOrdered B y: Dr. Morrow on 10-09-2022 Bilirubin [Mass/Vol] 0.50 mg/dL 0.20-1.00 [facility] Comment on above: For patients on eltr ombopag therapy, use of Dimension [place] TBIL is not recommended. Protein [Mass/Vol] 5.5 g/dL 6.4-8.2 [facility] Direct bilirubinOrdered By: Dr. Morrow on 10-09-2022 Bilirubin.direct [Mass/Vol] 0.16 mg/dL 0.00-0.30 [facility] - Chemistry and C hemistry - challengeOrdered By: Dr. Morrow on 10-09-2022 ALP [Catalytic activity/Vol] 91 U/L 45-117 [facility] ALT [Catalytic activity/Vol] 518 U/L 13-56 [facility] Globulin (S) [Mass/Vol] 3.1 g/dL 2.2-4.2 [facility] Serum or plasma albumin osmel urement (mass/volume)Ordered By: Dr. Morrow on 10-09-2022 Albumin [Mass/Vol] 2.4 g/dL 3.2-5.0 [facility] Thin prep Papanicolaou smear with manual screeningOrdered By: Dr. Morrow on 10-09-2022 Thin prep Papanicolaou smear with manual screening 185 U/L 15-37 [facility] Absolute lymphocyte countOrd ered By: Dr. Parsons on 10-08-2022 Lymphocytes Auto (Unsp spec) [#/Vol] 2.75 10*3/uL 0.83-4.51 [facility] Basophil percentageOrdered B y: Dr. Parsons on 10-08-2022 Basophils/100 WBC (Bld) 0.3 % 0-1 [facility] Chloride [Moles/Vol] 109 mmol/L 98-107 [facility] Cholesterol [Mass/Vol] 135 mg/dL <200 [facility] Comment on above: <200 mg/dL Desirable 200-240 mg/dL Borderline >240 mg/dL High Risk Eosinophils/100 WBC (Bld) 2.6 % 0-5 [facility] Glucose [Mass/Vol] 83 mg/dL 74-106 [facility] Neutrophils (Bld) [#/Vol] 7.0 10*3/uL 2.0-7.7 [facility] Neutrophils/100 WBC (Bld) 64.6 % 47-70 [facility] Potassium [Moles/Vol] 3.7 mmol/L 3.5-5.1 [facility] Sodium [Moles/Vol] 142 mmol/L 136-145 [facility] Triglyceride [Mass/Vol] 131 mg/dL <199 [facility] Comment on above: The drugs N-Acetylcy steine and Metamizole may falsely depress this assay.Serum Triglycerides Reference Interval Normal <150 mg/dL Borderline high 150 - 199 mg/dL High 200 - 499 mg/dL Very High > or = 500 mg/dL WBC (Bld) [#/Vol] 10.9 10*3/uL 4.4-11.0 [facility] Blood erythrocytes count (nu mber/volume)Ordered By: Dr. Parsons on 10-08-2022 RBC (Bld) [#/Vol] 4.25 10*6/uL 4.2-5.4 [facility] Blood hemoglobin measurement (mass/volume)Ordered By: Dr. aPrsons on 10-08-2022 Hemoglobin (Bld) [Mass/Vol] 12.8 g/dL 12.0-15.0 [facility] Blood lymphocytes/100 leukoc ytesOrdered By: Dr. Parsons on 10-08-2022 Lymphocytes/100 WBC (Bld) 25.3 % 19-41 [facility] Blood monocytes/100 leukocyt esOrdered By: Dr. Parsons on 10-08-2022 Monocytes/100 WBC (Bld) 6.7 % 0-10 [facility] Blood platelet mean volumeOr dered By: Dr. Parsons on 10-08-2022 Platelet mean volume (Bld) [Entitic vol] 9.7 fL 6.2-12.0 [facility] Determination of erythrocyte mean corpuscular volume (MCV)Ordered By: Dr. Parsons on 10-08-2022 MCV (RBC) [Entitic vol] 93.6 fL 81-99 [facility] Hematocrit Auto (Bld) [Volum e fraction]Ordered By: Dr. Parsons on 10-08-2022 Hematocrit (Bld) [Volume fraction] 39.8 % 37-47 [facility] - Chemistry and C hemistry - challengeOrdered By: Dr. Parsons on 10-08-2022 CO2 [Moles/Vol] 26.0 mmol/L 21.0-32.0 [facility] Lipase [Catalytic activity/Vol] 190 U/L 73-393 [facility] Urea nitrogen/Creatinine [Mass ratio] 19.5 mg/mg 10-20 [facility] - Hematology and Cell countsOrdered By: Dr. Parsons on 10-08-2022 Erythrocyte distribution width (RBC) [Entitic vol] 45.7 fL 35.1-43.9 [facility] Erythrocyte distribution width (RBC) [Ratio] 13.4 % 11.6-14.6 [facility] Immature granulocytes/100 WBC (Bld) 0.500 % 0.0-0.9 [facility] Comment on above: IG% - Immature Granu locytes (promyelocytes, myelocytes and metamyelocytes) > 1% indicates that a LEFT SHIFT is Present. MCH (RBC) [Entitic mass] 30.1 pg 27.0-32.0 [facility] Nucleated RBC/100 WBC (Bld) [Ratio] 0.2 % 0-5 [facility] MCHC Auto (RBC) [Mass/Vol]Or dered By: Dr. Parsons on 10-08-2022 MCHC (RBC) [Mass/Vol] 32.2 g/dL 32-36 [facility] No Panel InformationOrdered By: Dr. Parsons on 10-08-2022 Estimated Creatinine Clearance Calc 54.09 ml/min [facility] Estimated GFR (MDRD) Amer 86 mL/min >60 [facility] Comment on above: GFR Calc Estimated GFR (MDRD) Non-Af Amer 71 mL/min >60 [facility] Comment on above: Non- GFR Calc Platelets bldOrdered By: Dr. Parsons on 10-08-2022 Platelets (Bld) [#/Vol] 319 10*3/uL 150-450 [facility] Serum or plasma albumin/glob ulin mass ratioOrdered By: Dr. Parsons on 10-08-2022 Albumin/Globulin [Mass ratio] 0.8 {ratio} 0.9-2.4 [facility] Serum or plasma calcium osmel urement (mass/volume)Ordered By: Dr. Parsons on 10-08-2022 Calcium [Mass/Vol] 7.8 mg/dL 8.5-10.1 [facility] Serum or plasma cholesterol in HDL measurement (mass/volume)Ordered By: Dr. Parsons on 10-08-2022 Cholesterol in HDL [Mass/Vol] 52 mg/dL >40 [facility] Comment on above: The drugs N-Acetylcy steine and Metamizole may falsely depress this assay. Reference Range HDL <40 mg/dL Low HDL Cholesterol HDL >or= 60 mg/dL High HDL Cholesterol Serum or plasma cholesterol in VLDL measurement (mass/volume)Ordered By: Dr. Parsons on 10-08-2022 Cholesterol in VLDL [Mass/Vol] 26 mg/dL 5-40 [facility] Serum or plasma creatinine m easurement (mass/volume)Ordered By: Dr. Parsons on 10-08-2022 Creatinine [Mass/Vol] 0.82 mg/dL 0.55-1.02 [facility] Comment on above: The validity of the calculated GFR & GFRAA in patients over 70 years has not been determined. Clinical correlation is essential. Serum or plasma low density lipoprotein (LDL) cholesterol measurement (mass/volume)Ordered By: Dr. Parsons on 10-08-2022 Cholesterol in LDL [Mass/Vol] 57 mg/dL 0-130 [facility] Serum or plasma urea nitroge n measurement (mass/volume)Ordered By: Dr. Parsons on 10-08-2022 Urea nitrogen [Mass/Vol] 16 mg/dL 7-18 [facility] Thin prep Papanicolaou smear with manual screeningOrdered By: Dr. Parsons on 10-08-2022 Thin prep Papanicolaou smear with manual screening 7 5-15 [facility] Absolute lymphocyte counton 10-07-2022 Lymphocytes Auto (Unsp spec) [#/Vol] 1.76 10*3/uL 0.83-4.51 [facility] Work Phone: Acetaminophen level (mass/vo lume)Ordered By: Dr. Maier on 10-07-2022 Acetaminophen (Unsp spec) [Mass/Vol] < 2.0 ug/mL 10.0-30.0 [facility] Basophil percentageon 2021 Basophils/100 WBC (Bld) 0.3 % 0-1 [facility] Work Phone: Bilirubin [Mass/Vol] 1.10 mg/dL 0.20-1.00 [facility] Work Phone: Comment on above: For patients on eltr ombopag therapy, use of Dimension [place] TBIL is not recommended. Chloride [Moles/Vol] 103 mmol/L 98-107 [facility] Work Phone: Eosinophils/100 WBC (Bld) 2.6 % 0-5 [facility] Work Phone: Glucose [Mass/Vol] 120 mg/dL 74-106 [facility] Work Phone: [phone] Comment on above: Fasting Glucose resu lt from 100 to 125 mg/dL suggests IMPAIRED HOMEOSTASIS per A.D.A. criteria. Neutrophils (Bld) [#/Vol] 7.4 10*3/uL 2.0-7.7 [facility] Work Phone: [phone] Neutrophils/100 WBC (Bld) 72.0 % 47-70 [facility] Work Phone: Potassium [Moles/Vol] 3.7 mmol/L 3.5-5.1 [facility] Work Phone: Protein [Mass/Vol] 7.2 g/dL 6.4-8.2 [facility] Work Phone: Sodium [Moles/Vol] 140 mmol/L 136-145 [facility] Work Phone: WBC (Bld) [#/Vol] 10.3 10*3/uL 4.4-11.0 [facility] Work Phone: Blood erythrocytes count (nu mber/volume)on 10-07-2022 RBC (Bld) [#/Vol] 4.69 10*6/uL 4.2-5.4 [facility] Work Phone: Blood hemoglobin measurement (mass/volume)on 10-07-2022 Hemoglobin (Bld) [Mass/Vol] 14.1 g/dL 12.0-15.0 [facility] Work Phone: Blood lymphocytes/100 leukoc yteson 10-07-2022 Lymphocytes/100 WBC (Bld) 17.0 % 19-41 [facility] Work Phone: Blood monocytes/100 leukocyt eson 10-07-2022 Monocytes/100 WBC (Bld) 7.6 % 0-10 [facility] Work Phone: Blood platelet mean volumeon 10-07-2022 Platelet mean volume (Bld) [Entitic vol] 9.5 fL 6.2-12.0 [facility] Work Phone: Determination of erythrocyte mean corpuscular volume (MCV)on 10-07-2022 MCV (RBC) [Entitic vol] 92.1 fL 81-99 [facility] Work Phone: Hematocrit Auto (Bld) [Volum e fraction]on 10-07-2022 Hematocrit (Bld) [Volume fraction] 43.2 % 37-47 [facility] Work Phone: INR in Blood by Coagulation assayOrdered By: Dr. Parsons on 10-07-2022 INR Coag (Bld) [Relative time] 1.0 {INR} [facility] - Chemistry and C hemistry - challengeon 10-07-2022 ALP [Catalytic activity/Vol] 155 U/L 45-117 [facility] Work Phone: ALT [Catalytic activity/Vol] 1430 U/L 13-56 [facility] Work Phone: CO2 [Moles/Vol] 31.0 mmol/L 21.0-32.0 [facility] Work Phone: Globulin (S) [Mass/Vol] 3.9 g/dL 2.2-4.2 [facility] Work Phone: Lipase [Catalytic activity/Vol] 580 U/L 73-393 [facility] Work Phone: Urea nitrogen/Creatinine [Mass ratio] 19.8 mg/mg 10-20 [facility] Work Phone: Laboratory - CoagulationOrde red By: Dr. Parsons on 10-07-2022 aPTT Coag (Bld) [Time] 24.3 s 24.1-36.2 [facility] PT Coag (PPP) [Time] 12.6 s 11.7-14.9 [facility] - Hematology and Cell countson 10-07-2022 Erythrocyte distribution width (RBC) [Entitic vol] 45.1 fL 35.1-43.9 [facility] Work Phone: Erythrocyte distribution width (RBC) [Ratio] 13.4 % 11.6-14.6 [facility] Work Phone: Immature granulocytes/100 WBC (Bld) 0.500 % 0.0-0.9 [facility] Work Phone: Comment on above: IG% - Immature Granu locytes (promyelocytes, myelocytes and metamyelocytes) > 1% indicates that a LEFT SHIFT is Present. MCH (RBC) [Entitic mass] 30.1 pg 27.0-32.0 [facility] Work Phone: Nucleated RBC/100 WBC (Bld) [Ratio] 0 % 0-5 [facility] Work Phone: Laboratory - Microbiology an d Antimicrobial susceptibilityOrdered By: Dr. Parsons on 10-07-2022 SARS-CoV-2 (COVID-19) RNA ARLEN+probe Ql (Unsp spec) Not detected Not Detect [facility] Comment on above: Normal Reference Ran [...] and RNA 12b panel ARLEN+probe (Unsp spec) [facility] Auto (RBC) [Mass/Vol]on 10-07-2022 MCHC (RBC) [Mass/Vol] 32.6 g/dL 32-36 [facility] Work Phone: No Panel InformationOrdered By: Dr. Maier on 10-07-2022 Hepatitis A IgM Antibody Negative Negative [facility] Hepatitis B Core IgM Antibody Negative Negative [facility] Hepatitis C Antibody (EIA) 0.1 s/co ratio 0.0-0.9 [facility] Hepatitis C Antibody Comment Comment . [facility] Comment on above: NegativeNot infected with HCV, unless recent infection issuspected or other evidence exists to indicate HCVinfection.Performed at: [facility] [id number] Director: Isaac Jiang PhD, Phone: [phone] Troponin I High Sensitivity 6 pg/mL 3.0-54.0 [facility] Comment on above: Please Note: New Eun t Units and Gender Specific Reference Ranges. For more information see Policy Stat Procedure [place] High Sensitivity Troponin (TNIH) and attachments. No Panel Informationon 10-07 Estimated Creatinine Clearance Calc 48.95 ml/min [facility] Work Phone: Estimated GFR (MDRD) Amer 77 mL/min >60 [facility] Work Phone: Comment on above: GFR Calc Estimated GFR (MDRD) Non-Af Amer 63 mL/min >60 [facility] Work Phone: Comment on above: Non- GFR Calc Platelets bldon 10-07-2022 Platelets (Bld) [#/Vol] 351 10*3/uL 150-450 [facility] Work Phone: Serum or plasma albumin osmel urement (mass/volume)on 10-07-2022 Albumin [Mass/Vol] 3.3 g/dL 3.2-5.0 [facility] Work Phone: Serum or plasma albumin/glob ulin mass ratioon 10-07-2022 Albumin/Globulin [Mass ratio] 0.8 {ratio} 0.9-2.4 [facility] Work Phone: Serum or plasma calcium osmel urement (mass/volume)on 10-07-2022 Calcium [Mass/Vol] 9.3 mg/dL 8.5-10.1 [facility]: Serum or plasma creatinine m easurement (mass/volume)on 10-07-2022 Creatinine [Mass/Vol] 0.91 mg/dL 0.55-1.02 [facility] Work Phone: Comment on above: The validity of the calculated GFR & GFRAA in patients over 70 years has not been determined. Clinical correlation is essential. Serum or plasma hepatitis B virus surface antigen detection by immunoassayOrdered By: Dr. Maier on 10-07-2022 HBV surface Ag IA Ql Negative Negative [facility] Serum or plasma urea nitroge n measurement (mass/volume)on 10-07-2022 Urea nitrogen [Mass/Vol] 18 mg/dL 7-18 [facility] Work Phone: Thin prep Papanicolaou smear with manual screeningon 10-07-2022 Thin prep Papanicolaou smear with manual screening 1019 U/L 15-37 [facility] Work Phone: Thin prep Papanicolaou smear with manual screening 6 5-15 [facility] Work Phone: Absolute lymphocyte counton 04-16-2022 Lymphocytes Auto (Unsp spec) [#/Vol] 2.90 10*3/uL 0.83-4.51 [facility] Work Phone: Basophil percentageon 2021 Basophils/100 WBC (Bld) 0.7 % 0-1 [facility] [facility] Work Phone: Eosinophils/100 WBC (Bld) 1.1 % 0-5 [facility] Work Phone: Neutrophils (Bld) [#/Vol] 5.7 10*3/uL 2.0-7.7 [facility] Work Phone: Neutrophils/100 WBC (Bld) 59.6 % 47-70 [facility] Work Phone: WBC (Bld) [#/Vol] 9.6 10*3/uL 4.4-11.0 [facility] Blood erythrocytes count (nu mber/volume)on 04-16-2022 RBC (Bld) [#/Vol] 4.29 10*6/uL 4.2-5.4 [facility]: Blood hemoglobin measurement (mass/volume)on 04-16-2022 Hemoglobin (Bld) [Mass/Vol] 13.3 g/dL 12.0-15.0 [facility] Work Phone: Blood lymphocytes/100 leukoc yteson 04-16-2022 Lymphocytes/100 WBC (Bld) 30.1 % 19-41 [facility] Work Phone: Blood monocytes/100 leukocyt eson 04-16-2022 Monocytes/100 WBC (Bld) 8.1 % 0-10 [facility] Work Phone: Blood platelet mean volumeon 04-16-2022 Platelet mean volume (Bld) [Entitic vol] 9.8 fL 6.2-12.0 [facility] Work Phone: Determination of erythrocyte mean corpuscular volume (MCV)on 04-16-2022 MCV (RBC) [Entitic vol] 94.6 fL 81-99 [facility] Work Phone: Hematocrit Auto (Bld) [Volum e fraction]on 04-16-2022 Hematocrit (Bld) [Volume fraction] 40.6 % 37-47 [facility] Work Phone: Iron measurement (mass/mass) on 04-16-2022 Iron (Unsp spec) [Mass/Mass] 89 ug/dL 50-170 [facility] Work Phone: Laboratory - Hematology and Cell countson 04-16-2022 Erythrocyte distribution width (RBC) [Entitic vol] 44.2 fL 35.1-43.9 [facility] Work Phone: Erythrocyte distribution width (RBC) [Ratio] 12.7 % 11.6-14.6 [facility] Work Phone: Immature granulocytes/100 WBC (Bld) 0.400 % 0.0-0.9 [facility] Work Phone: Comment on above: IG% - Immature Granu locytes (promyelocytes, myelocytes and metamyelocytes) > 1% indicates that a LEFT SHIFT is Present. MCH (RBC) [Entitic mass] 31.0 pg 27.0-32.0 [facility] Work Phone: Nucleated RBC/100 WBC (Bld) [Ratio] 0 % 0-5 [facility] Work Phone: MCHC Auto (RBC) [Mass/Vol]on 04-16-2022 MCHC (RBC) [Mass/Vol] 32.8 g/dL 32-36 [facility] Work Phone: Platelets bldon 04-16-2022 Platelets (Bld) [#/Vol] 331 10*3/uL 150-450 [facility] Work Phone: CNOVon 07-01-2021 CNOV Office Visit (ZACK ) MELYSSA MATA ([id number]) 1940 F Date Time Provider Department 07/01/21 [...] SPEC 02/03/11 - COLONOSCOP W/ OR W/O [facility] SPEC 06/05/16 Colonoscopy - DANDC, DIAG AND/OR [...] colonic polyp (more content not included)... Normal [facility] 06-03-2021 [place] Telephone (ZACK) CESARMELYSSA ([id number]) 1940 F Date Time Provider Department 06/03/21 [...] PCP regarding the message below. SONIA Cosme APRN.PERFORMANCE MANAGER 06/08/2021 9:38 AM Signed Can you please [...] that she will try that. SONIA Cosme APRN.PERFORMANCE MANAGER 06/23/2021 3:25 PM Signed Call patient verified . Patient reports she is doing much better. Having a bowel movement daily or every other day. She is taking fiber daily 2 TBPs Iraida Simmons APRN.OGLDEN Allergies As of Date: 06/03/2021 Noted Allergy [...] colon [D12.6] 05/29/2021 05/29/2021 Encounter Status:Closed by IRIADA SIMMONS on 06/23/21 Normal [facility] HISTORY PHYSICALon HISTORY PHYSICAL HNO ID: [id number] Author: Lucas Buchanan MD Service: General Surgery [...] DATE: May 29, 2021 TIME: 7:53 AM [facility] NURSING PROGon 05-29-2021 NURSING PROG HNO ID: [id number] Author: Gracy Aguilar RN Service: ? Author Type: Registered Nurse Type: Nursing Progress Note Filed: 05/29/2021 8:27 AM Note Text: Patient arrived to PACU, on left side, abdomen soft. Patient resting comfortably with no pain. Call light within reach. Gracy Aguilar RN [facility] NURSING PROG HNO ID: [id number] Author: Aleta Ely RN Service: ? Author Type: Registered Nurse Type: Nursing Progress Note Filed: 05/29/2021 7:58 AM Note Text: [facility] PRE-OP NURSING HAND OFF NOTE SBAR Hand off given to Leonor Win RN. Hand off was communicated verbally and at the patient's bedside and all questions were answered. Aleta Ely RN [facility] CNOVon 04-24-2021 CNOV Office Visit (GASTWS ) MELYSSA MATA ([id number]) 1940 F Date Time Provider Department 04/24/21 [...] Laterality Date - COLONOSCOP W/ OR W/O [facility] SPEC 2002 Colonoscopy WNL - COLONOSCOP W/ OR W/O [facility] SPEC 11/23/05 Colonoscopy - COLONOSCOP W/ OR W/O [facility] SPEC 02/03/11 - COLONOSCOP W/ OR W/O [facility] SPEC 06/05/16 Colonoscopy - DANDC, DIAG AND/OR [...] tablet daily (more content not included)... Normal [facility] CNPNon 04-24-2021 CNPN Telephone (ZACK) MELYSSA MATA ([id number]) 1940 F Date Time Provider Department 04/24/21 IRAIDA SIMMONS During your visit today, we recorded the following information about you: Jeimy Oliver LPN 04/24/2021 3:00 PM Addendum Patient is scheduled at [facility] on 05/29/[address] Buchanan for a colonoscopy. DX: Adenomatous polyp of colon, unspecified part of colon [D12.6] Verbal and written instructions given. [facility] SURGICAL PHONE NOTE Date of Procedure/Surgery: 05/22/21 Procedure/Surgery Type: COLONOSCOPY ? SEDATION:Conscious Sedation Location of Planned Procedure/Surgery: ? 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 Author Type: Nurse Practitioner Type: [...] Laterality Date - COLONOSCOP W/ OR W/O [facility] SPEC 2002 Colonoscopy WNL - COLONOSCOP W/ OR W/O [facility] SPEC 11/23/05 Colonoscopy - COLONOSCOP W/ OR W/O [facility] SPEC 02/03/11 - COLONOSCOP W/ OR W/O [facility] SPEC 06/05/16 Colonoscopy - DANDC, DIAG AND/OR [...] diclofenac, E (more content not included)... Normal [facility] HOSPon 04-24-2021 HOSP Patient:Melyssa Mata MRN: Height:4' [...] entered within the past 30 days Normal [facility] Laboratory - Microbiology an d Antimicrobial susceptibility Respiratory pathogens DNA and RNA 12b panel ARLEN+probe (Unsp spec) [facility] Work Phone: Vital Signs Date Time Vital Sign Value Performing Clinician Amandeep metcalf 12-29-2024 10:51-0500 Body height 147.[address] Liane Stephenson DO Work Phone: [facility] 12-29-2024 10:51-0500 Body mass index (BMI) [Ratio] 28.2 kg/m2 Dr. Liane Stephenson DO Work Phone: [facility] 12-29-2024 10:51-0500 Body temperature 96.8 [degF] Dr. Liane Stephenson DO Work Phone: [facility] 12-29-2024 10:51-0500 Body weight 61.[address] Liane Stephenson DO Work Phone: [facility] 12-29-2024 10:51-0500 Diastolic blood pressure 68 mm[Hg] Dr. Liane Stephenson DO Work Phone: [facility] 12-29-2024 10:51-0500 Heart rate 64 /min Dr. Liane Stephenson DO Work Phone: [facility] 12-29-2024 10:51-0500 Respiratory rate 16 /min Dr. Liane Stephenson DO Work Phone: [facility] 12-29-2024 10:51-0500 SaO2% (BldA) [Mass fraction] 100 % Dr. Liane Stephenson DO Work Phone: [facility] 12-29-2024 10:51-0500 Systolic blood pressure 138 mm[Hg] Dr. Liane Stephenson DO Work Phone: [facility] 03-16-2024 19:50-0400 Body height 147.32 cm [facility] 03-16-2024 19:50-0400 Body mass index (BMI) [Ratio] 27.8 kg/m2 [facility] 03-16-2024 19:50-0400 Body temperature 97.8 [degF] [facility] 03-16-2024 19:50-0400 Body weight 60.49 kg [facility] 03-16-2024 19:50-0400 Diastolic blood pressure 65 mm[Hg] [facility] 03-16-2024 19:50-0400 Heart rate 67 /min [facility] 03-16-2024 19:50-0400 Respiratory rate 16 /min [facility] 03-16-2024 19:50-0400 SaO2% (BldA) [Mass fraction] 100 % [facility] 03-16-2024 19:50-0400 Systolic blood pressure 163 mm[Hg] [facility] 12-31-2023 10:17-0500 Body height 152.4 cm [facility] 12-31-2023 10:17-0500 Body mass index (BMI) [Ratio] 24.4 kg/m2 [facility] 12-31-2023 10:17-0500 Body temperature 97 [degF] [facility] 12-31-2023 10:17-0500 Body weight 56.69 kg [facility] 12-31-2023 10:17-0500 Diastolic blood pressure 50 mm[Hg] [facility] 12-31-2023 10:17-0500 Heart rate 66 /min [facility] 12-31-2023 10:17-0500 Respiratory rate 16 /min [facility] 12-31-2023 10:17-0500 SaO2% (BldA) [Mass fraction] 99 % [facility] 12-31-2023 10:17-0500 Systolic blood pressure 134 mm[Hg] [facility] 07-02-2023 12:11-0400 Body height 152.4 cm [facility] 07-02-2023 12:11-0400 Body mass index (BMI) [Ratio] 23.6 kg/m2 [facility] 07-02-2023 12:11-0400 Body temperature 97.2 [degF] [facility] 07-02-2023 12:11-0400 Body weight 54.88 kg [facility] 07-02-2023 12:11-0400 Diastolic blood pressure 77 mm[Hg] [facility] 07-02-2023 12:11-0400 Heart rate 64 /min [facility] 07-02-2023 12:11-0400 Respiratory rate 16 /min [facility] 07-02-2023 12:11-0400 SaO2% (BldA) [Mass fraction] 100 % [facility] 07-02-2023 12:11-0400 Systolic blood pressure 142 mm[Hg] [facility] 01-01-2023 22:47-0500 Diastolic blood pressure 61 mm[Hg] Dr. Liane Stephenson Work Phone: [facility] 01-01-2023 22:47-0500 Heart rate 73 /min Dr. Liane Stephenson Work Phone: [facility] 01-01-2023 22:47-0500 Respiratory rate 15 /min Dr. Liane Stephenson Work Phone: [facility] 01-01-2023 22:47-0500 SaO2% (BldA) [Mass fraction] 98 % Dr. Liane Stephenson Work Phone: [facility] 01-01-2023 22:47-0500 Systolic blood pressure 125 mm[Hg] Dr. Liane Stephenson Work Phone: [facility] 01-01-2023 18:21-0500 Body height 147.[address] Liane Stephenson Work Phone: [facility] 01-01-2023 18:21-0500 Body mass index (BMI) [Ratio] 29.9 kg/m2 Dr. Liane Stephenson Work Phone: [facility] 01-01-2023 18:21-0500 Body temperature 96.8 [degF] Dr. Liane Stephenson Work Phone: [facility] 01-01-2023 18:21-0500 Body weight 65.[address] Liane Stephenson Work Phone: [facility] 12-18-2022 10:27-0500 Body height 147.[address] Liane Stephenson Work Phone: [facility] 12-18-2022 10:27-0500 Body mass index (BMI) [Ratio] 28.8 kg/m2 Dr. Liane Stephenson Work Phone: [facility] 12-18-2022 10:27-0500 Body temperature 96.6 [degF] Dr. Liane Stephenson Work Phone: [facility] 12-18-2022 10:27-0500 Body weight 62.[address] Liane Stephenson Work Phone: [facility] 12-18-2022 10:27-0500 Diastolic blood pressure 82 mm[Hg] Dr. Liane Stephenson Work Phone: [facility] 12-18-2022 10:27-0500 Heart rate 65 /min Dr. Liane Stephenson Work Phone: [facility] 12-18-2022 10:27-0500 Respiratory rate 16 /min Dr. Liane Stephenson Work Phone: [facility] 12-18-2022 10:27-0500 SaO2% (BldA) [Mass fraction] 99 % Dr. Liane Stephenson Work Phone: [facility] 12-18-2022 10:27-0500 Systolic blood pressure 141 mm[Hg] Dr. Liane Stephenson Work Phone: [facility] 10-09-2022 08:05-0500 Body temperature 97.9 [degF] Dr. Liane Stephenson Work Phone: [facility] 10-09-2022 08:05-0500 Diastolic blood pressure 80 mm[Hg] Dr. Liane Stephenson Work Phone: [facility] 10-09-2022 08:05-0500 Heart rate 61 /min Dr. Liane Stephenson Work Phone: [facility] 10-09-2022 08:05-0500 Respiratory rate 18 /min Dr. Liane Stephenson Work Phone: [facility] 10-09-2022 08:05-0500 SaO2% (BldA) [Mass fraction] 100 % Dr. Liane Stephenson Work Phone: [facility] 10-09-2022 08:05-0500 Systolic blood pressure 155 mm[Hg] Dr. Liane Stephenson Work Phone: [facility] 10-09-2022 04:34-0500 Body weight 62.[address] Liane Stephenson Work Phone: [facility] 10-08-2022 10:21-0500 Body height 147.[address] Liane Stephenson Work Phone: [facility] Work Phone: 10-07-2022 19:14-0500 Body mass index (BMI) [Ratio] 29.3 kg/m2 Dr. Liane Stephenson Work Phone: [facility] 10-07-2022 17:51-0500 Body temperature 97.2 [degF] [facility] Work Phone: 10-07-2022 17:51-0500 Diastolic blood pressure 44 mm[Hg] [facility] Work Phone: 10-07-2022 17:51-0500 Heart rate 75 /min [facility] Work Phone: 10-07-2022 17:51-0500 Respiratory rate 18 /min [facility] Work Phone: 10-07-2022 17:51-0500 SaO2% (BldA) [Mass fraction] 98 % [facility] Work Phone: 10-07-2022 17:51-0500 Systolic blood pressure 128 mm[Hg] [facility] Work Phone: 10-07-2022 14:42-0500 Body height 147.32 cm [facility] Work Phone: 10-07-2022 14:42-0500 Body mass index (BMI) [Ratio] 29.5 kg/m2 [facility] Work Phone: 10-07-2022 14:42-0500 Body weight 63.95 kg [facility] Work Phone: 06-19-2022 10:30-0400 Body height 147.32 cm [facility] Work Phone: 06-19-2022 10:30-0400 Body temperature 96.8 [degF] [facility] Work Phone: 06-19-2022 10:30-0400 Diastolic blood pressure 76 mm[Hg] [facility] Work Phone: 06-19-2022 10:30-0400 Heart rate 63 /min [facility] Work Phone: 06-19-2022 10:30-0400 Respiratory rate 16 /min [facility] Work Phone: 06-19-2022 10:30-0400 SaO2% (BldA) [Mass fraction] 100 % [facility] Work Phone: 06-19-2022 10:30-0400 Systolic blood pressure 131 mm[Hg] [facility] Work Phone: 12-25-2021 09:48-0500 Body height 147.32 cm [facility] Work Phone: 12-25-2021 09:48-0500 Body mass index (BMI) [Ratio] 29.2 kg/m2 [facility] Work Phone: 12-25-2021 09:48-0500 Body temperature 97.6 [degF] [facility] Work Phone: 12-25-2021 09:48-0500 Body weight 63.5 kg [facility] Work Phone: 12-25-2021 09:48-0500 Diastolic blood pressure 90 mm[Hg] [facility] Work Phone: 12-25-2021 09:48-0500 Heart rate 78 /min [facility] Work Phone: 12-25-2021 09:48-0500 Respiratory rate 16 /min [facility] Work Phone: 12-25-2021 09:48-0500 SaO2% (BldA) [Mass fraction] 97 % [facility] Work Phone: 12-25-2021 09:48-0500 Systolic blood pressure 131 mm[Hg] [facility] Work Phone: Encounters Encounter Date Encounter Type Care Provider Facility Start: 04-10-2025 End: 04-10-[address] Liane Stephenson DO Work Phone: [facility] Work Phone: Start: 04-10-2025 End: 04-10-[address] Liane Stephenson DO -Laboratory [place] Work Phone: Start: 04-10-2025 End: 04-10-2025 ambulatory Liane Stephenson Facility:[facility] Start: 12-29-2024 End: 12-29-[address] Liane Stephenson DO -Medical Out Work Phone: Start: 12-29-2024 End: 12-29-2024 ambulatory Liane Stephenson Facility:[facility] Start: 06-30-2024 End: 06-30-2024 ambulatory Liane Stephenson Facility:[facility] Start: 06-19-2024 End: 06-19-2024 ambulatory Liane Stephenson Facility:[facility] Start: 03-16-2024 End: 03-16-2024 Emergency department patient visit [facility]Emergency Department Work Phone: Start: 12-31-2023 End: 12-31-2023 ambulatory [facility] Work Phone: Start: 12-31-2023 End: 12-31-2023 Patient encounter procedure [facility] Work Phone: Start: 12-08-2023 End: 12-08-2023 Patient encounter procedure [facility]-LaboratoryArash Luanjose elias [facility] Start: 10-11-2023 End: 11-07-2023 ambulatory [facility] Work Phone: Start: 10-11-2023 End: 11-07-2023 Discharged Recurring [facility]Nutritional Services Work Phone: Start: 10-11-2023 Registered Recurring [facility]-Physical Therapy Work Phone: Start: 09-07-2023 End: 09-07-2023 ambulatory [facility] Work Phone: Start: 09-07-2023 End: 09-07-2023 Patient encounter procedure [facility]Radiology, [place] Work Phone: Start: 07-02-2023 End: 07-02-2023 ambulatory [facility] Work Phone: Start: 07-02-2023 End: 07-02-2023 Patient encounter procedure [facility] Work Phone: Start: 05-07-2023 End: 05-07-2023 ambulatory [facility] Work Phone: Start: 05-07-2023 End: 05-07-2023 Patient encounter procedure [facility]RAD [employer] Work Phone: Start: 03-30-2023 End: 03-30-2023 Patient encounter procedure [facility], [place] Work Phone: Start: 03-24-2023 End: 03-24-2023 Patient encounter procedure [facility]LaboratoryArash An [facility] Start: 02-08-2023 End: 02-08-2023 ambulatory [facility] Work Phone: Start: 02-08-2023 End: 02-08-2023 Patient encounter procedure [facility]LaboratoryArash [facility] Start: 01-01-2023 End: 01-01-2023 Emergency department patient visit Dr. Liane Stephenson Work Phone: [facility]Emergency Department Start: 12-18-2022 End: 12-18-[address] Liane Stephenson Work Phone: [facility] Work Phone: Start: 12-18-2022 End: 12-18-[address] iLane Stephenson Work Phone: [facility]Medical Out Start: 10-14-2022 End: 10-14-[address] Liane Stephenson Work Phone: [facility] Start: 10-09-2022 Non-patient / Non-visit Dr. Radha Stephenson Work Phone: [facility] Start: 10-08-2022 Non-patient / Non-visit Dr. Radha Stephenson Work Phone: [facility] Start: 10-08-2022 Non-patient / Non-visit Dr. Radha Stephenson Work Phone: [facility] Start: 10-07-2022 Non-patient / Non-visit Dr. Radha Stephenson Work Phone: [facility] Start: 10-07-2022 End: 10-09-2022 [facility] Start: 06-19-2022 End: 06-19-2022 [facility] Start: 04-16-2022 End: 04-16-2022 Patient encounter procedure [facility] Start: 12-25-2021 End: 12-25-2021 [facility] Date Procedure Procedure Detail Performing [...] Date Care Activity Detail Author Start: 03-16-2024 [facility] Start: 10-09-2022 Patient discharge [facility] Start: 10-07-2022 Application of inter mittent pneumatic compression device [facility] Start: 10-07-2022 Assessment of risk o f venous thromboembolism [facility] Start: 10-07-2022 Fall prevention [facility] Start: 10-07-2022 Incentive spirometry [facility] Start: 10-07-2022 Inhalation therapy procedure [facility] Start: 10-07-2022 Insertion of cathete r into peripheral vein [facility] Start: 10-07-2022 Introduction of urinary catheter [facility] Start: 10-07-2022 Measuring intake and output [facility] Start: 10-07-2022 Oxygen therapy [facility] Start: 10-07-2022 Providing care accor ding to standard [facility] Start: 10-07-2022 Provision of activity privileges [facility] Start: 10-07-2022 Referral to gastroen terology service [facility] Start: 10-07-2022 End: 10-07-2022 [facility] Start: 10-07-2022 Following clinical p athway protocol [facility] Start: 10-07-2022 Admission procedure [facility] Alanine aminotransfe rase [Enzymatic activity/volume] in Serum or Plasma [facility] Work Phone: Albumin [Mass/volume ] in Serum or Plasma [facility] Work Phone: Alkaline phosphatase [Enzymatic activity/volume] in Serum or Plasma [facility] Work Phone: Anion gap measurement [facility] Work Phone: Aspartate aminotrans ferase [Enzymatic activity/volume] in Serum or Plasma [facility] Work Phone: Bilirubin, total measurement [facility] Work Phone: BUN/Creatinine ratio [facility] Work Phone: Calcium [Mass/volume ] in Serum or Plasma [facility] Work Phone: Carbon dioxide, tota l [Moles/volume] in Serum or Plasma [facility] Work Phone: Chloride [Moles/volu me] in Serum or Plasma [facility] Work Phone: Cholesterol [Mass/vo lume] in Serum or Plasma [facility] Work Phone: Cholesterol in HDL [ Mass/volume] in Serum or Plasma [facility] Work Phone: Cholesterol in LDL [ Mass/volume] in Serum or Plasma [facility] Work Phone: Creatinine [Moles/vo lume] in Serum or Plasma [facility] Work Phone: Glucose [Mass/volume ] in Serum or Plasma [facility] Work Phone: Hematocrit [Volume F raction] of Blood [facility] Work Phone: Hemoglobin [Mass/volume] in Blood [facility] Work Phone: Hepatitis A virus Ig M Ab [Presence] in Serum [facility] Work Phone: Hepatitis B core ant ibody measurement, IgM type [facility] Work Phone: Hepatitis B surface antigen measurement [facility] Work Phone: Hepatitis C antibody measurement [facility] Work Phone: Leukocytes [#/volume] in Blood [facility] Work Phone: Lipase measurement [facility] Work Phone: Mean corpuscular hem oglobin concentration determination [facility] Work Phone: Mean corpuscular hem oglobin determination [facility] Work Phone: Measurement of renal function [facility] Work Phone: Neutrophil count [facility] Work Phone: Neutrophil percent d ifferential count [facility] Work Phone: Patient Education [facility] Work Phone: Patient referral [facility] Work Phone: Platelets [#/volume] in Blood [facility] Work Phone: Potassium [Moles/vol ume] in Serum or Plasma [facility] Work Phone: Red blood cell count [facility] Work Phone: Red cell distributio n width determination [facility] Work Phone: Respiratory pathogen s DNA and RNA 12b panel - Unspecified specimen by ARLEN with probe detection [facility] Work Phone: Sodium [Moles/volume ] in Serum or Plasma [facility] Work Phone: Total protein measurement [facility] Work Phone: Triglycerides measurement [facility] Work Phone: Urea nitrogen [Mass/ volume] in Serum or Plasma [facility] Work Phone: VLDL cholesterol measurement [facility] Work Phone: Immunizations Immunization Date Immunization Notes Care Provider Fa cility 03-16-2024 tetanus toxoid, redu solo diphtheria toxoid, and acellular pertussis vaccine, adsorbed [facility] 01-10-2021 Covid (Moderna) [facility] Payers Date Payer Category Payer Private Health Insurance [id number] 2023 Self-pay [id number] 2014 [id number] Medicare [id number] Self-pay SELF PAY BY [employer] [id number] Unknown [id number] Unknown [id number] 63 Unknown [id number] Social History Date Type Detail Facility Start: 06-01-2021 End: 03-16-2024 Tobacco smoking status NHIS Unknown if ever smoked [facility] Start: 04-15-2021 None [facility] Start: 04-15-2021 Homeless [facility] Start: 06-01-2021 Non-smoker [facility] Start: 1940 Sex Assigned At Female W [facility] Start: 03-16-2024 Tobacco smoking stat us NHIS Never smoked tobacco (finding) [facility] Goals Date Patient Goal Desired Activity /State Functional Status Date Assessment Result Facility 10-09-2022 Functional status Ambulates [facility] Work Phone: Mental Status Date Assessment Result Facility 12-29-2024 Cognitive function Voice/Name [facility] Work Phone: 07-02-2023 Cognitive function Voice/Name [facility] Work Phone: 12-18-2022 Cognitive function Voice/Name [facility] Work Phone: 10-09-2022 Cognitive function Voice/Name Woody Machado [facility] Work Phone: 06-19-2022 Cognitive function Awake;Alert;A ppropriate;Fol lows Commands [facility] Work Phone: 12-25-2021 Cognitive function Awake;Alert;A ppropriate;Fol lows Commands [facility] Work Phone: Discharge summary 03-16-2024 Note Date & Type Note Facility 03-16-2024 Discharge summary Note Date/Time March 16, 2024 8:45pm [facility] Medical Records Department [address] [place] [address] Emergency Department Summary 03/16/24 MR#: [id number] Acct: [id number] Name: MELYSSA MATA Rep #:[id number] : 1940 83 From: Gaurav Parker DO [...] did not clean it out with peroxide. [facility] Medical History HLD (hyperlipidemia) HTN (hypertension) Macular [...] your Primary Care Provider. Call [facility] ([phone]) or report to the closest Emergency Room. Call 911 if necessary. 03/16/242044 <Electronically signed by Gaurav Parker DO> Cosigner Signature (if applicable): CC: Dr. Liane Stephenson DO ~ Signed [facility] Work Phone: Progress note 07-01-2021 Note Date & Type Note Facility 07-01-2021 Note HNO ID: [id number] Author: Iraida Simmons APRN.PERFORMANCE MANAGER Service: ? Author Type: Nurse Practitioner Type: [...] SURGERY HX - COLONOSCOP W/ OR W/O [facility] SPEC 2002 Colonoscopy WNL - COLONOSCOP W/ [...] polyp of asce (more content not included)... [facility] Clinical Note 05-29-2021 Note Date & Type Note Facility 05-29-2021 Note HNO ID: [id number] Author: Gracy Aguilar RN Service: ? Author Type: Registered Nurse Type: Nursing Progress Note Filed: 05/29/2021 8:40 AM Note Text: Patient sitting up in bed tolerating snack and drink without problems. Gracy Aguilar RN [facility] Evaluation note Note Date & Type Note Facility Evaluation note No assessment information availa ble [facility] Work Phone: Evaluation note Note Date & Type Note Facility Evaluation note Diagnosis Onset Date Acute pancreatitis acute Hepatitis acute Nausea & vomiting acute Transaminitis acute [facility] Work Phone: Evaluation note Note Date & Type Note Facility Evaluation note Diagnosis Onset Date Acute pancreatitis resolved Hepatitis resolved Nausea & vomiting resolved Transaminitis resolved [facility] Work Phone: Reason for referral (narrative) Note Date & Type Note Facility Reason for referral (narrative) No reason for referral information available [facility] Work Phone: Summary Purpose Family History [...] Yes May 31, 2021 3:12pm Power of Finish Saw Operator Yes May 31 3:12pm Advance Directive Response Recorded Date/ Time Name of Medical Power of Finish Saw Operator Fabrizio Mata October 07, 2022 6:05pm Advance Directives Yes December 6:24pm Living Will Yes October 07, 6:05pm Power of Finish Saw Operator Yes October 07, 2022 6:05pm Advance Directive Response Recorded Date/ Time Name of Medical Power of Finish Saw Operator Fabrizio Mata October 07, 2022 6:05pm Advance Directives Yes December 6:24pm Living Will No January 01 10:47pm Power of Finish Saw Operator No January 01, 2023 10:47pm Advance Directive Response Recorded Date/ Time Advance Directives Yes December 7:24pm Living Will No January 01 11:47pm Power of Finish Saw Operator No January 01, 2023 11:47pm Advance Directive Response Recorded Date/ Time Advance Directives Yes December 6:24pm Living Will No January 01 10:47pm Power of Finish Saw Operator No January 01, 2023 10:47pm Advance Directive Response Recorded Date/ Time Advance Directives Yes December 7:24pm Living Will No March 16, 2024 8: 27pm Power of Finish Saw Operator No March 16, 2024 8:27pm Advance Directive Response Recorded Date/ Time Living Will No March 16, 2024 8: 27pm Do you have a Healthcare Power of Finish Saw Operator? No March 16, 2024 8:27pm Advance Directives [...] section and content) DATE CREATED AUTHOR 12/04/2021 [facility] DATE CREATED AUTHOR AUTHOR'S ORGANIZ ATION 04/14/2025 [facility] Goals (unrecognized section and content) Goals may [...] Inactive Member Role Status Dates Dr. Liane Stehpenson DO Attending Provider Active Liane Stephenson Primary [...] DO Primary Care Provider Active Jessie Zabala PULLEY WORKER-C Attending Provider, Referring Pro vider Active Team [...] Avila MD Family Provider Active Carlenefredy Arriaga PULLEY WORKER-C Primary Care Provider Active Team Status: Inactive Member Role Status Dates Dr. Liane Stephenson DO Attending Provider, Referring Prov ider Active Carlene Arriaga PULLEY WORKER-C Primary Care Provider Active Team Status: Inactive [...] December 29, 2024 Dr. Liane Stephenson DO Referring Provider Active St art: December [...] BE BASED ON THE PRIMARY CLINICAL RECORDS. [facility] [employer] provides no warranty or guarantee of the accuracy or completeness of information in this document.
--- NOTE | 2025-05-20 19:10 | EKG12_ITS ---
Test Reason : CP Blood Pressure : */* mmHG Vent. Rate : 56 BPM Atrial Rate : 56 BPM P-R Int : 184 ms QRS Dur : 148 ms QT Int : 480 ms P-R-T Axes : 41 -42 14 degrees QTcB Int : 463 ms Sinus bradycardia lafb Right bundle branch block Cannot rule out Inferior infarct , age undetermined Abnormal ECG Confirmed by Luis Dominguez ([id number]), online editor [address] ([id number]) on 05/21/2025 1:07:38 PM Referred By: TALIB Confirmed By: Luis Dominguez
[2025-05-20 19:23] LABS: Magnesium 1.9 mg/dL (1.5-2.2)
--- NOTE | 2025-05-20 19:28 | ED.RN ---
Pt notified pt is having left sided chest pain. MD notified, repeat EKG remains the same per MD, ok to go to PCU
[2025-05-20 19:55] LABS: Troponin T High Sens 4 HR 170 ng/L (<=14)
--- NOTE | 2025-05-20 19:55 | EKG12_ITS ---
Test Reason : CP ADMISSION Blood Pressure : */* mmHG Vent. Rate : 59 BPM Atrial Rate : 59 BPM P-R Int : 200 ms QRS Dur : 134 ms QT Int : 462 ms P-R-T Axes : 58 -48 14 degrees QTcB Int : 457 ms Sinus bradycardia Left axis deviation Right bundle branch block Inferior infarct , age undetermined Abnormal ECG When compared with ECG of 20-May-2025 19:17, MANUAL COMPARISON REQUIRED DATA IS UNCONFIRMED Confirmed by MD KRYSTLE, ADELINA ([id number]), senior editor [address]LE[address] ([id number]) on 05/22/2025 10:57:50 AM Referred By: Confirmed By: ADELINA DALTON MD
[2025-05-20] MEDS: 0.9% Normal Saline (1000mL) 1,000 ML 75 ML IV (22:42)
[2025-05-20] MEDS: Memantine Hydrochloride 10 MG Tablet PO (22:43)
[2025-05-21 00:05] LABS: Partial Thromboplast Time 194.8 Seconds (24.1-36.2)
[2025-05-21 02:00] VITALS: BP 126/65; PULSE 56; RESP 16; TEMP 36.6; O2SAT 97
[2025-05-21 03:20] VITALS: BMI 28.3
[2025-05-21 05:02] LABS: Cholesterol 136 mg/dL (<=200); Low Density Lipoprotein Calc. 61 mg/dL; Triglycerides 112 mg/dL; Very Low Density Lipoprotein 22 mg/dL (5-40); cholesterol:hdl ratio screen 2.57
[2025-05-21 05:03] LABS: AST(SGOT) 23 U/L (<=31); Alanine Aminotransfer ALT/SGPT 8 U/L (<=34); Albumin, Serum 3.6 g/dL (3.4-4.8); Alkaline Phosphatase 57 U/L (35-104); Anion Gap 12 (5-15); BUN 19 mg/dL (4-19); BUN/Creat Ratio 20.4 RATIO (10-20); Calcium,Total 9.2 mg/dL (7.6-11.0); Carbon Dioxide 22.5 mmol/L (21.0-32.0); Chloride 106 mmol/L (98-108); Estimated Creatinine Clearance 37.96 ml/min (50-250); Globulin 2.6 g/dL (2.2-4.2); Glucose 87 mg/dL (70-99); Potassium 3.9 mmol/L (3.3-5.1)
--- NOTE | 2025-05-21 05:55 | ECHOD_ITS ---
Reason For Study Reason For Study: NSTEMI Procedure This was a 2D Doppler, Color Flow transthoracic echocardiogram. Exam performed portable in patient room. Left Ventricle Normal LV size. Mild concentric left ventricular hypertrophy. The left ventricular ejection fraction is 65 %. Stage 1 diastolic dysfunction. Right Ventricle Normal right ventricle. Atria The left and right atria are normal. Mitral Valve Mild-Moderate (1-2+) posteriorly directed mitral valve insufficiency. Tricuspid Valve Trivial tricuspid valve insufficiency. Unable to estimate RV systolic pressure due to insufficient tricuspid regurgitant envelope. Aortic Valve Mild to moderate aortic valve calcification. Aortic valve sclerosis without stenosis. Pulmonic Valve The pulmonic valve is not well visualized. Great Vessels Normal sized aortic root. Pericardium/Pleural No pericardial effusion. MMode/2D Measurements & Calculations LVIDd: 4.1 cm IVSd: 1.2 cm Ao root diam: 2.9 cm LVIDs: 2.7 cm LVPWd: 1.2 cm FS: 33.5 % LAV(MOD-bp): 23.1 ml LVAd ap4: 22.9 cm2 SV(MOD-sp4): 38.6 ml LAV(MOD-bp) Indexed: 15.0 ml/m2 LVLd ap4: 7.4 cm SI(MOD-sp4): 25.0 ml/m2 LAV(MOD-sp2): 20.7 ml EDV(MOD-sp4): 59.3 ml LAV(MOD-sp4): 25.2 ml EDV(sp4-el): 60.0 ml LVAs ap4: 12.3 cm2 LVLs ap4: 6.1 cm ESV(MOD-sp4): 20.7 ml ESV(sp4-el): 21.0 ml EF(MOD-sp4): 65.1 % EF(sp4-el): 65.1 % SV(sp4-el): 39.0 ml LA A4 area: 11.4 cm2 LA dimension(2D): 3.2 cm RA A4 area: 9.7 cm2 Time Measurements MV dec time: 0.25 sec Doppler Measurements & Calculations MV E max ti: 85.4 cm/sec Lat Peak E' Ti: 8.0 cm/sec Med Peak E' Ti: 7.3 cm/sec MV A max ti: 115.7 cm/sec E/E' lat: 10.7 E/E' med: 11.7 MV E/A: 0.74 MV V2 max: 134.4 cm/sec MV P1/2t max ti: 111.6 cm/sec Ao V2 max: 177.6 cm/sec MV max P.2 mmHg MV P1/2t: 78.2 msec Ao max P.6 mmHg MV V2 mean: 61.7 cm/sec Ao V2 mean: 115.5 cm/sec MV mean P.9 mmHg MV dec slope: 418.0 cm/sec2 Ao mean P.2 mmHg MV V2 VTI: 37.6 cm MVA(P1/2t): 2.8 cm2 Ao V2 VTI: 37.8 cm AV (velocity ratio): 0.60 LV V1 max: 99.3 cm/sec PA V2 max: 93.4 cm/sec LV V1 max P.9 mmHg LV V1 mean P.1 mmHg LV V1 mean: 68.4 cm/sec LV V1 VTI: 22.5 cm ECHO/Echo Complete Interpretation Summary Mild concentric left ventricular hypertrophy. The left ventricular ejection fraction is 65 %. Stage 1 diastolic dysfunction. Mild-Moderate (1-2+) posteriorly directed mitral valve insufficiency. Aortic valve sclerosis without stenosis. Ordering Physician: Ignacia Parsons Performed By: Norman Lockett RCS
--- NOTE | 2025-05-21 05:55 | EKG12_ITS ---
Test Reason : AM EKG Blood Pressure : */* mmHG Vent. Rate : 58 BPM Atrial Rate : 58 BPM P-R Int : 194 ms QRS Dur : 132 ms QT Int : 468 ms P-R-T Axes : 68 -45 4 degrees QTcB Int : 459 ms Sinus bradycardia Right bundle branch block Left anterior fascicular block Bifascicular block Inferior infarct , age undetermined Abnormal ECG When compared with ECG of 20-May-2025 20:27, MANUAL COMPARISON REQUIRED DATA IS UNCONFIRMED Confirmed by MD KRYSTLE, ADELINA ([id number]), supervising editor trailer [address]LEMAN ([id number]) on 05/22/2025 10:55:56 AM Referred By: Confirmed By: ADELINA DALTON MD
[2025-05-21 05:59] LABS: Hemoglobin 12.7 g/dL (12.0-15.0); Red Blood Count 3.98 M/mm3 (4.2-5.4); White Blood Count 7.3 K/mm3 (4.4-11.0)
[2025-05-21 06:00] LABS: Hematocrit 37.2 % (37-47); Immature Granulocytes Count 0.020 X10^3/uL (0.0-0.0); Mean Corp Hgb Conc 34.1 g/dL (32-36); Mean Corpuscular Volume 93.5 fL (81-99); Mean Platelet Vol. 10.2 fl (6.2-12.0); Platelet Count 243 K/mm3 (150-450); RBC Distribution Width CV 12.8 % (11.6-14.6); RBC Distribution Width SD 43.8 fl (35.1-43.9)
[2025-05-21 08:19] LABS: Partial Thromboplast Time 76.7 Seconds (24.1-36.2)
[2025-05-21 08:39] VITALS: BP 127/61; PULSE 59; RESP 17; TEMP 36.8; O2SAT 98
[2025-05-21] MEDS: Memantine Hydrochloride 10 MG Tablet PO ×2 (08:43→21:11)
[2025-05-21 09:38] VITALS: PULSE 58; O2SAT 98
--- NOTE | 2025-05-21 09:56 | PCM.PN.HOSP ---
Reason for Visit Chief Complaint: Chest pain Subjective Subjective Patient is an 84-year-old lady who presented to the emergency department with dizziness as well as chest pain radiating down the left breast and. Was found to have elevated troponin consistent with acute non-STEMI treatment initiated per protocol admitted to a monitored bed for further management Objective Data Objective Data Vital Signs: Vital Signs Temp Pulse Resp BP Pulse Ox O2 Del Method 98.2 F 58 L 17 127/61 H 98 Room Air 05/21/25 08:39 05/21/25 09:38 05/21/25 08:39 05/21/25 08:39 05/21/25 09:38 05/21/25 09:38 Oxygen Delivery Method Room Air Weight: 61.5 kg Body Mass Index (BMI) 28.3 Intake & Output: Intake and Output for Last 24 Hours 05/19/25 05/20/25 05/21/25 23:59 23:59 23:59 Intake Total 389.53 / 389.53 Balance 389.53 / 389.53 Lab / Micro Data 05/21/25 03:53 05/21/25 03:53 Labs: Laboratory Results - last 24 hr 05/20/25 14:25: WBC 9.9, RBC 4.30, Hgb 13.3, Hct 40.0, MCV 93.0, MCH 30.9, MCHC 33.3, RDW Std Deviation 43.8, RDW Coeff of [place] 12.8, Plt Count 262, MPV 10.4, Immature Gran % (Auto) 0.300, Neut % (Auto) 60.8, Lymph % (Auto) 28.8, [place] % (Auto) 7.2, Eos % (Auto) 2.4, Baso % (Auto) 0.5, Absolute Neuts (auto) 6.0, Absolute Lymphs (auto) 2.84, Nucleated RBC % 0, PT 12.1, INR 0.9, APTT 27.6, D-Dimer Quant (PE/DVT) 0.27, Sodium 134, Potassium 3.4, Chloride 97 L, Carbon Dioxide 24.3, Anion Gap 13, BUN 18, Creatinine 1.09, Estim Creat Clear Calc 32.48 L, Est GFR (MDRD) Non-Af 50 L, BUN/Creatinine Ratio 16.6, Glucose 130 H, Calcium 9.5, Troponin T High Sens 105 H*, NT pro BNP II 942 05/20/25 17:00: Magnesium 1.9, Troponin T Hi Sens 2 Hr 153 H* 05/20/25 18:30: Troponin T Hi Sens 4Hr 170 H* 05/20/25 23:23: APTT 194.8 H* 05/21/25 03:53: WBC 7.3, RBC 3.98 L, Hgb 12.7, Hct 37.2, MCV 93.5, MCH 31.9, MCHC 34.1, RDW Std Deviation 43.8, RDW Coeff of [place] 12.8, Plt Count 243, MPV 10.2, Immature Gran % (Auto) 0.300, Neut % (Auto) 50.4, Lymph % (Auto) 35.9, [place] % (Auto) 8.6, Eos % (Auto) 3.8, Baso % (Auto) 1.0, Absolute Neuts (auto) Not Reportable, Sodium 140, Potassium 3.9, Chloride 106, Carbon Dioxide 22.5, Anion Gap 12, BUN 19, Creatinine 0.92, Estim Creat Clear Calc 37.96 L, Est GFR (MDRD) Non-Af 62, BUN/Creatinine Ratio 20.4 H, Glucose 87, Calcium 9.2, Total Bilirubin 0.28, AST 23, ALT 8, Alkaline Phosphatase 57, Total Protein 6.2, Albumin 3.6, Globulin 2.6, Albumin/Globulin Ratio 1.4, Triglycerides 112, Cholesterol 136, LDL Cholesterol, Calc 61, VLDL Cholesterol 22, HDL Cholesterol 53, Cholesterol/HDL Ratio 2.57 05/21/25 07:34: APTT 76.7 H Radiography Diagnostic Testing: Radiology Impression Chest X-Ray 05/20/25 14:58 IMPRESSION: No focal consolidations. Reading Location: [id number] Shoulder X-Ray 05/20/25 15:59 IMPRESSION: No acute osseous abnormality of the left shoulder. 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 Reading Location: [id number] Physical Exam Narrative GENERAL: cooperative HEENT: Atraumatic; normocephalic EYES; Anicteric, Normal Conjunctiva NECK; supple, normal thyroid, RESPIRATORY: Diminished to auscultation CARDIOVASCULAR: Regular S1 S2, GI: soft, normoactive bowel sounds, : No Renal angle tenderness; EXTREMITIES: No edema, no clubbing, MUSCULOSKELETAL: no muscle wasting NEURO: Awake; no lateralizing signs. SKIN: No Rash PSYCH; Flat affect Assessment & Plan Assessment/Plan (1) NSTEMI, initial episode of care: PLAN: Plan Patient is an 84-year-old lady who presented to the emergency department with dizziness as well as chest pain radiating down the left breast and. Was found to have elevated troponin consistent with acute non-STEMI treatment initiated per protocol admitted to a monitored bed for further management 1. Acute non-STEMI ? Patient presented with chest pain as well as elevated troponin. Admitted to monitored bed treatment initiated with heparin in addition to Plavix beta-blockers and statin therapy. 2D echo ordered for regional wall motion abnormalities and consultation placed to cardiology definitive management deferred 2. Dyslipidemia ?Patient is on statin therapy, continued at home dose 3. Gout ? Patient is on allopurinol continue 4. Hypertension ? Blood pressure controlled, home medications continued with dose adjustment as needed 5. CKD ruled out 6. Dementia ? Patient is on memantine in addition to supportive 7. DVT prophylaxis ? Patient is on heparin Charges/Coding Visit Charges Inpatient E&M: 95011 Subs Hosp L2
--- NOTE | 2025-05-21 10:36 | PCM.CONS.C ---
Assessment & Plan Assessment/Plan (1) NSTEMI, initial episode of care: PLAN: Patient's ECG is consistent with a right bundle branch block left anterior fascicular block. She is in sinus bradycardia at 56 bpm there is no evolution over the last 24 hours. The patient does have enzymes 105?170. Preliminarily her echocardiogram shows normal LV function. The patient does have dementia. I did discuss treatment options including invasive evaluation with the patient and her family members. The patient does have arthritic changes in her left shoulder which is where the symptoms started. It is difficult to tell with accuracy how symptomatic the patient really is. The family noted that they were so uncertain they waited 2 to 3 days to have her evaluated. I would recommend that we try to treat this medically. We will add long-acting nitrates to control her blood pressure utilize a beta-juan diego as tolerated continue the antiplatelet therapy with clopidogrel and aggressive statin therapy with atorvastatin. Would recommend changing the metoprolol to tartrate to 12.5 mg daily starting tomorrow morning. Will hold it for heart rate less than 55. (2) Dementia: QUALIFIERS: Dementia type: unspecified type Dementia severity: unspecified severity Dementia behavioral or psychological symptom: with other behavioral disturbance Qualified Code(s): F03.918 - Unspecified dementia, unspecified severity, with other behavioral disturbance PLAN: Patient's dementia is being evaluated and treated by the primary service. (3) HTN (hypertension): QUALIFIERS: Hypertension type: primary hypertension Qualified Code(s): I10 - Essential (primary) hypertension PLAN: Blood pressure appears to be adequately controlled on her current medical therapy. (4) HLD (hyperlipidemia): QUALIFIERS: Hyperlipidemia type: pure hypercholesterolemia Qualified Code(s): E78.00 - Pure hypercholesterolemia, unspecified PLAN: Lipids are well-controlled with a total cholesterol of 136, LDL 61, and HDL 53, with triglycerides of 112 on her current atorvastatin 40 mg daily. PLAN: Plan 1. Add Imdur 30 mg every morning starting today. 2. Will change metoprolol to tartrate to 12.5 mg daily hold for heart rate less than 55. 3. Continue Plavix as antiplatelet therapy. 4. Will slowly progress activities as tolerated. 5. Discontinue IV heparin. 6. If unable to control symptoms that appear to be ischemic in etiology we will have to consider proceeding with left heart catheterization. Stenting will be an issue given she is intolerant of aspirin. HPI Consult Data Date of Consult: 05/21/25 HPI Narrative Reason for Consultation: Chest pain HPI Narrative: MELYSSA GUERRERO, is a 84 F who presents with a 2 to 3-day history of left shoulder and left chest discomfort radiating around under her left breast. The patient also notes tenderness to palpation in her anterior left chest as well as bilateral aspect of her chest wall. She does note that the symptoms resolve when she sits and is still in the recur when she is up and moving about. Patient's troponins were 105/153/170. ECG shows sinus bradycardia at 56 bpm with a right bundle branch block and left anterior fascicular block on 05/20. There was no change on the serial ECG done 05/21. Her telemetry now shows normal sinus rhythm at 61 bpm. Currently the patient is pain-free. An echocardiogram was being performed which primarily revealed normal LV function. The patient also has a history of dementia and is on medical therapy. Patient has a history of hyperlipidemia hypertension chronic kidney disease but her GFR is 62 on admission. The patient carries a history of aspirin allergy of an unknown event. The patient is not allergic to iodine. Patient's blood pressure has been treated with hydrochlorothiazide and she is on clopidogrel in her home environment as well. She also is tolerating atorvastatin 40 mg daily in her home environment. Triglycerides were 112, total cholesterol 136, LDL 61, and HDL 53. Her BNP was normal on admission at 943 for her age. The patient and 3 family members were present during the interview and examination. They were all in agreement with her dementia issues. [facility] Medical History (Updated 05/21/25 @ 10:[address] Luis Dominguez MD) HLD (hyperlipidemia) HTN (hypertension) Dementia Gout Overweight Chronic kidney disease (CKD), stage III (moderate) Stenosis of retinal artery Macular degeneration Home Medications ?Medication ?Instructions ?Recorded ?Last Taken ?Type hydrochlorothiazide 25 mg tablet 12.5 mg PO DAILY diuretic 12/17/15 10/06/22 History atorvastatin 40 mg tablet 40 mg PO QHS CHOLESTEROL 10/07/22 10/06/22 History clopidogrel 75 mg tablet 75 mg PO DAILY BLOOD THINNER 10/07/22 10/06/22 History ursodiol 250 mg tablet 250 mg PO BID #60 tabs 10/09/22 Unknown Rx allopurinol 100 mg tablet 100 mg PO DAILY 05/20/25 Unknown History memantine 10 mg tablet 10 mg PO BID 05/20/25 Unknown History trandolapril 4 mg tablet 4 mg PO DAILY 05/20/25 Unknown History Allergy/AdvReac Type Severity Reaction Status Date / Time aspirin AdvReac Unknown Verified 05/20/25 20:25 Family History Father Myocardial infarction Brother Myocardial infarction CVA (cerebral vascular accident) Mother Heart disease Surgical History H/O: hysterectomy History of knee replacement procedure of left knee History of spinal fusion Hx of cholecystectomy Social History household members: spouse Smoking Status: Never smoker alcohol intake: never substance use type: does not use ROS Constitutional Constitutional: Reports as per HPI Eyes Eyes: Reports systems reviewed and no addt'l complaints, except as documented ENT HEENT: Reports systems reviewed and no addt'l complaints, except as documented Cardiovascular Cardiovascular: Reports as per HPI Respiratory/Chest Respiratory/Chest: Reports as per HPI Gastrointestinal Gastrointestinal: Reports systems reviewed and no addt'l complaints, except as documented Genitourinary Genitourinary: Reports as per HPI Musculoskeletal Musculoskeletal: Reports systems reviewed and no addt'l complaints, except as documented Integumentary Integumentary: Reports systems reviewed and no addt'l complaints, except as documented Neurologic Neurologic: Reports as per HPI Psychiatric Psychiatric: Reports as per HPI Endocrine Endocrinology: Reports systems reviewed and no addt'l complaints, except as documented Hematologic/Lymphatic Hematologic/Lymphatic: Reports systems reviewed and no addt'l complaints, except as documented Allergic/Immunologic Allergic/Immunologic: Reports as per HPI Physical Exam Const alert Constitutional Narrative: Appears to be oriented x 3 but has a problem with short-term memory of initiation of her symptoms. She does seem to be consistent with the descriptions. HEENT normocephalic Eyes EOMs intact bilaterally Neck no carotid bruits Chest inspection of chest normal Resp normal respiratory effort and clear to auscultation bilaterally Cardio Rate: regular rate Rhythm: regular rhythm Heart Sounds: S1 normal, S2 normal and murmur systolic II/ harsh left sternal border; Negative for click or gallop GI soft to palpation Extremity no pedal edema Psych Psych Narrative: The patient appears to have a self-awareness of her memory deficits. Risk Stratification Risk Stratification Applicable: Yes Age >/= 65: Yes >/= 3 CAD Risk Factors (HTN, HLD, DM, family hx of CAD, or current smoker): Yes Aspirin Use in the Past 7 Days: No Severe Angina (>/= episodes in 24 hours): No EKG ST Changes >/= 0.5mm: No Positive Cardiac Marker: Yes PHYLICIA Risk Stratification Score: 3 PHYLICIA % Risk: 13% Risk Charges/Coding Visit Charges Inpatient E&M: 39663 Init Hosp L2 Objective Data Vital Signs: Vital Signs Temp Pulse Resp BP Pulse Ox O2 Del Method 98.2 F 58 L 17 127/61 H 98 Room Air 05/21/25 08:39 05/21/25 09:38 05/21/25 08:39 05/21/25 08:39 05/21/25 09:38 05/21/25 09:38 Oxygen Delivery Method Room Air Weight: 135 lb 9.349 oz Body Mass Index (BMI) 28.3 Intake & Output: Intake and Output for Last 24 Hours 05/19/25 05/20/25 05/21/25 23:59 23:59 23:59 Intake Total 389.53 / 389.53 Balance 389.53 / 389.53 Lab / Micro Data Attestation: I reviewed the patient's lab results. 05/21/25 03:53 05/21/25 03:53 Labs: Laboratory Results - last 24 hr 05/20/25 14:25: WBC 9.9, RBC 4.30, Hgb 13.3, Hct 40.0, MCV 93.0, MCH 30.9, MCHC 33.3, RDW Std Deviation 43.8, RDW Coeff of [place] 12.8, Plt Count 262, MPV 10.4, Immature Gran % (Auto) 0.300, Neut % (Auto) 60.8, Lymph % (Auto) 28.8, [place] % (Auto) 7.2, Eos % (Auto) 2.4, Baso % (Auto) 0.5, Absolute Neuts (auto) 6.0, Absolute Lymphs (auto) 2.84, Nucleated RBC % 0, PT 12.1, INR 0.9, APTT 27.6, D-Dimer Quant (PE/DVT) 0.27, Sodium 134, Potassium 3.4, Chloride 97 L, Carbon Dioxide 24.3, Anion Gap 13, BUN 18, Creatinine 1.09, Estim Creat Clear Calc 32.48 L, Est GFR (MDRD) Non-Af 50 L, BUN/Creatinine Ratio 16.6, Glucose 130 H, Calcium 9.5, Troponin T High Sens 105 H*, NT pro BNP II 942 05/20/25 17:00: Magnesium 1.9, Troponin T Hi Sens 2 Hr 153 H* 05/20/25 18:30: Troponin T Hi Sens 4Hr 170 H* 05/20/25 23:23: APTT 194.8 H* 05/21/25 03:53: WBC 7.3, RBC 3.98 L, Hgb 12.7, Hct 37.2, MCV 93.5, MCH 31.9, MCHC 34.1, RDW Std Deviation 43.8, RDW Coeff of [place] 12.8, Plt Count 243, MPV 10.2, Immature Gran % (Auto) 0.300, Neut % (Auto) 50.4, Lymph % (Auto) 35.9, [place] % (Auto) 8.6, Eos % (Auto) 3.8, Baso % (Auto) 1.0, Absolute Neuts (auto) Not Reportable, Sodium 140, Potassium 3.9, Chloride 106, Carbon Dioxide 22.5, Anion Gap 12, BUN 19, Creatinine 0.92, Estim Creat Clear Calc 37.96 L, Est GFR (MDRD) Non-Af 62, BUN/Creatinine Ratio 20.4 H, Glucose 87, Calcium 9.2, Total Bilirubin 0.28, AST 23, ALT 8, Alkaline Phosphatase 57, Total Protein 6.2, Albumin 3.6, Globulin 2.6, Albumin/Globulin Ratio 1.4, Triglycerides 112, Cholesterol 136, LDL Cholesterol, Calc 61, VLDL Cholesterol 22, HDL Cholesterol 53, Cholesterol/HDL Ratio 2.57 05/21/25 07:34: APTT 76.7 H Rhythm Strip Rhythm Strip: Sinus Rhythm Rate: 61 Cardiology Labs/Tests 05/20/25 14:25: WBC 9.9, RBC 4.30, Hgb 13.3, Hct 40.0, MCV 93.0, MCH 30.9, MCHC 33.3, Plt Count 262, MPV 10.4, Immature Gran % (Auto) 0.300, Neut % (Auto) 60.8, Lymph % (Auto) 28.8, Wells % (Auto) 7.2, Eos % (Auto) 2.4, Baso % (Auto) 0.5, Absolute Neuts (auto) 6.0, Nucleated RBC % 0, PT 12.1, INR 0.9, APTT 27.6, D-Dimer Quant (PE/DVT) 0.27, Sodium 134, Potassium 3.4, Chloride 97 L, Carbon Dioxide 24.3, Anion Gap 13, BUN 18, Creatinine 1.09, Est GFR (MDRD) Non-Af 50 L, BUN/Creatinine Ratio 16.6, Glucose 130 H, Calcium 9.5 05/20/25 17:00: Magnesium 1.9 05/20/25 23:23: APTT 194.8 H* 05/21/25 03:53: WBC 7.3, RBC 3.98 L, Hgb 12.7, Hct 37.2, MCV 93.5, MCH 31.9, MCHC 34.1, Plt Count 243, MPV 10.2, Immature Gran % (Auto) 0.300, Neut % (Auto) 50.4, Lymph % (Auto) 35.9, Wells % (Auto) 8.6, Eos % (Auto) 3.8, Baso % (Auto) 1.0, Absolute Neuts (auto) Not Reportable, Sodium 140, Potassium 3.9, Chloride 106, Carbon Dioxide 22.5, Anion Gap 12, BUN 19, Creatinine 0.92, Est GFR (MDRD) Non-Af 62, BUN/Creatinine Ratio 20.4 H, Glucose 87, Calcium 9.2, Total Bilirubin 0.28, Triglycerides 112, Cholesterol 136, VLDL Cholesterol 22, HDL Cholesterol 53, Cholesterol/HDL Ratio 2.57 05/21/25 07:34: APTT 76.7 H Rhythm: EKG: ECHO: Stress Test: Cardiac Cath: PCI: CT Surgery: Holter monitor: EPS: PPM: CXR: Chest CT Scan: Radiography Diagnostic Testing: Radiology Impression Chest X-Ray 05/20/25 14:58 IMPRESSION: No focal consolidations. Reading Location: [facility] Shoulder X-Ray 05/20/25 15:59 IMPRESSION: No acute osseous abnormality of the left shoulder. 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 Reading Location: [id number]
[2025-05-21 11:15] VITALS: PULSE 64
--- NOTE | 2025-05-21 11:35 | CASEMGMT ---
SONIA LEON Face to Face with patient for initial transition planning/care coordination assessment. RN CM introduced self and role at [facility]. Patient lying in bed, alert and oriented, . Patient willing to participate in assessment and is able to answer all questions appropriately. Care providers, pharmacy, and demographics verified. Strata: 2 PCP: [facility]: neurologist in [place] Preferred Pharmacy: [facility] Insurance: [place] Prescription Benefit: yes Living Will/HPOA: yes, Fabrizio Mata LNOK: , daughters Living Arrangements: Patient lives with in a 2 story home with bed and bath on first floor, 2 steps and railing to enter the home. Patient states she is independent at home. Transportation: daughter DME/HHC: Patient has shower chair, cane, walker, and rollator at home. Patient has had HHC in the past but could not recall agency. No previous SNF. Patient wishes to discharge home, denies need for home health at this time. Patient states she has no further needs or concerns at this time. CM to follow for discharge planning needs that may arise. Disposition Plan: Patient to discharge home with family support and follow-up plans in place. Shirley ORELLANA, RN, CM
[2025-05-21 14:54] VITALS: BP 91/44; PULSE 61; RESP 14; TEMP 36.6; O2SAT 95
--- NOTE | 2025-05-21 15:57 | CHAPLAIN ---
Type of Pastoral Visit _x__ Initial Visit ___ Follow-up Visit ___ On-call Visit ___ General Patient Visit ___ Spiritual Assessment ___ Family Conference ___ Bereavement ___ Rapid Response ___ Code Blue ___ Other (describe below) Pastoral Care Referral From _x__ Patient ___ Family ___ Nurse ___ Physician ___ Umbrella Cutter ___ Deck Lid Fitter ___ Other (describe below) Sacrament/Intervention _x__ Active listening ___ Anointing ___ Confucianist ___ Bereavement ___ Communion ___ Carlyn exploration ___ ___ Life review ___ Prayer ___ Reconciliation ___ Sacrament of Sick ___ Supportive presence ___ Wedding ___ Other (describe below) Pastoral Comments patient and family members are in the room; pt and spouse report that pt is doing much better and tests show that a heart attacks impact was very minimal; pt is grateful for the support and concern shown; pt has no other needs
[2025-05-21 21:08] VITALS: BP 102/60; PULSE 68; RESP 16; TEMP 36.6; O2SAT 98
[2025-05-22 03:29] VITALS: BMI 29.0
[2025-05-22 03:49] VITALS: BP 111/60; PULSE 67; RESP 16; TEMP 36.6; O2SAT 96
[2025-05-22 06:35] VITALS: O2SAT 96
[2025-05-22 07:19] LABS: Hematocrit 35.7 % (37-47); Hemoglobin 12.0 g/dL (12.0-15.0); Immature Granulocytes Count 0.040 X10^3/uL (0.0-0.0); Mean Corp Hgb Conc 33.6 g/dL (32-36); Mean Corpuscular Volume 92.0 fL (81-99); Mean Platelet Vol. 10.3 fl (6.2-12.0); NRBC Flagged by Analyzer 0 % (0-5); Platelet Count 257 K/mm3 (150-450); RBC Distribution Width CV 13.2 % (11.6-14.6); RBC Distribution Width SD 44.1 fl (35.1-43.9); Red Blood Count 3.88 M/mm3 (4.2-5.4); White Blood Count 9.4 K/mm3 (4.4-11.0)
--- NOTE | 2025-05-22 07:19 | PN.HOSP_ITS ---
Reason for Visit Chief Complaint: Chest pain Subjective Subjective Patient had an uneventful evening plan is for patient to be assessed for discharge. Objective Data Objective Data Vital Signs: Vital Signs Temp Pulse Resp BP Pulse Ox O2 Del Method 97.8 F 67 16 111/60 96 Room Air 05/22/25 03:49 05/22/25 03:49 05/22/25 03:49 05/22/25 03:49 05/22/25 03:49 05/22/25 03:49 Oxygen Delivery Method Room Air Weight: 62.9 kg Body Mass Index (BMI) 29.0 Intake & Output: Intake and Output for Last 24 Hours 05/20/25 05/21/25 05/22/25 23:59 23:59 23:59 Intake Total 1649.26 / 1649.26 Balance 1649.26 / 1649.26 Lab / Micro Data 05/22/25 06:31 05/22/25 06:31 Labs: Laboratory Results - last 24 hr 05/21/25 07:34: APTT 76.7 H Radiography Diagnostic Testing: Radiology Impression Echocardiogram 05/21/25 05:55 Interpretation Summary Mild concentric left ventricular hypertrophy. The left ventricular ejection fraction is 65 %. Stage 1 diastolic dysfunction. Mild-Moderate (1-2+) posteriorly directed mitral valve insufficiency. Aortic valve sclerosis without stenosis. Ordering Physician: Ignacia Parsons Performed By: Norman Lockett RCS Rhythm Strip Rhythm Strip: Sinus Rhythm Rate: 61 Physical Exam Narrative GENERAL: cooperative HEENT: Atraumatic; normocephalic EYES; Anicteric, Normal Conjunctiva NECK; supple, normal thyroid, RESPIRATORY: Diminished to auscultation CARDIOVASCULAR: Regular S1 S2, GI: soft, normoactive bowel sounds, : No Renal angle tenderness; EXTREMITIES: No edema, no clubbing, MUSCULOSKELETAL: no muscle wasting NEURO: Awake; no lateralizing signs. SKIN: No Rash PSYCH; Flat affect Assessment & Plan Assessment/Plan (1) NSTEMI, initial episode of care: PLAN: Plan Patient is an 84-year-old lady who presented to the emergency department with dizziness as well as chest pain radiating down the left breast and. Was found to have elevated troponin consistent with acute non-STEMI treatment initiated per protocol admitted to a monitored bed for further management 1. Acute non-STEMI ? Patient presented with chest pain as well as elevated troponin. Admitted to monitored bed treatment initiated with heparin in addition to Plavix beta- blockers and statin therapy. 2D echo ordered for regional wall motion abnormalities and consultation placed to cardiology definitive management deferred ? 05/22/2025; Case was discussed with Dr. Dominguez who placed you conservative management at this point. Plan is for patient to be discharged home on Imdur and metoprolol every morning as well add sublingual nitroglycerin as needed 2. Dyslipidemia ?Patient is on statin therapy, continued at home dose 3. Gout ? Patient is on allopurinol continue 4. Hypertension ? Blood pressure controlled, home medications continued with dose adjustment as needed 5. CKD ruled out 6. Dementia ? Patient is on memantine in addition to supportive 7. DVT prophylaxis ? Patient is on heparin
[2025-05-22 07:38] LABS: Anion Gap 11 (5-15); BUN 22 mg/dL (4-19); BUN/Creat Ratio 21.1 RATIO (10-20); Calcium,Total 8.8 mg/dL (7.6-11.0); Carbon Dioxide 22.4 mmol/L (21.0-32.0); Chloride 106 mmol/L (98-108); Estimated Creatinine Clearance 34.27 ml/min (50-250); Glucose 121 mg/dL (70-99); Magnesium 1.9 mg/dL (1.5-2.2); Potassium 3.6 mmol/L (3.3-5.1)
--- NOTE | 2025-05-22 07:54 | PCM.PN.CARD ---
Subjective Subjective Patient evaluated seated in a chair. She is resting comfortably. Daughter is in the room reports that she was significantly confused overnight but seems to be reoriented fairly well this morning. Patient denies any recurrence of any left arm or chest discomfort. She is tolerating the beta-juan diego metoprolol tartrate 12.5 mg daily. Heart rate has been 61-68 and normal sinus rhythm. Objective Data Vital Signs: Vital Signs Temp Pulse Resp BP Pulse Ox O2 Del Method 97.8 F 67 16 111/60 96 Room Air 05/22/25 03:49 05/22/25 03:49 05/22/25 03:49 05/22/25 03:49 05/22/25 03:49 05/22/25 03:49 Oxygen Delivery Method Room Air Weight: 138 lb 10.732 oz Body Mass Index (BMI) 29.0 Intake & Output: Intake and Output for Last 24 Hours 05/20/25 05/21/25 05/22/25 23:59 23:59 23:59 Intake Total 1649.26 / 1649.26 Balance 1649.26 / 1649.26 Lab / Micro Data Attestation: I reviewed the patient's lab results. 05/22/25 06:31 05/22/25 06:31 Labs: Laboratory Results - last 24 hr 05/21/25 07:34: APTT 76.7 H 05/22/25 06:31: WBC 9.4, RBC 3.88 L, Hgb 12.0, Hct 35.7 L, MCV 92.0, MCH 30.9, MCHC 33.6, RDW Std Deviation 44.1 H, RDW Coeff of Ansley 13.2, Plt Count 257, MPV 10.3, Immature Gran % (Auto) 0.400, Neut % (Auto) 61.5, Lymph % (Auto) 25.2, [place] % (Auto) 9.1, Eos % (Auto) 3.2, Baso % (Auto) 0.6, Absolute Neuts (auto) 5.8, Absolute Lymphs (auto) 2.37, Nucleated RBC % 0, Sodium 140, Potassium 3.6, Chloride 106, Carbon Dioxide 22.4, Anion Gap 11, BUN 22 H, Creatinine 1.03, Estim Creat Clear Calc 34.27 L, Est GFR (MDRD) Non-Af 54 L, BUN/Creatinine Ratio 21.1 H, Glucose 121 H, Calcium 8.8, Phosphorus 3.5, Magnesium 1.9 Rhythm Strip Rhythm Strip: Sinus Rhythm Rate: 60 Cardiology Labs/Tests 05/21/25 07:34: APTT 76.7 H 05/22/25 06:31: WBC 9.4, RBC 3.88 L, Hgb 12.0, Hct 35.7 L, MCV 92.0, MCH 30.9, MCHC 33.6, Plt Count 257, MPV 10.3, Immature Gran % (Auto) 0.400, Neut % (Auto) 61.5, Lymph % (Auto) 25.2, [place] % (Auto) 9.1, Eos % (Auto) 3.2, Baso % (Auto) 0.6, Absolute Neuts (auto) 5.8, Nucleated RBC % 0, Sodium 140, Potassium 3.6, Chloride 106, Carbon Dioxide 22.4, Anion Gap 11, BUN 22 H, Creatinine 1.03, Est GFR (MDRD) Non-Af 54 L, BUN/Creatinine Ratio 21.1 H, Glucose 121 H, Calcium 8.8, Phosphorus 3.5, Magnesium 1.9 Rhythm: EKG: ECHO: Stress Test: Cardiac Cath: PCI: CT Surgery: Holter monitor: EPS: PPM: CXR: Chest CT Scan: Radiography Diagnostic Testing: Radiology Impression Echocardiogram 05/21/25 05:55 Interpretation Summary Mild concentric left ventricular hypertrophy. The left ventricular ejection fraction is 65 %. Stage 1 diastolic dysfunction. Mild-Moderate (1-2+) posteriorly directed mitral valve insufficiency. Aortic valve sclerosis without stenosis. Ordering Physician: Ignacia Parsons Performed By: Norman Lockett RCS Physical Exam Const alert Constitutional Narrative: Still seems to be mildly confused. HEENT normocephalic Eyes EOMs intact bilaterally Neck no JVD Chest inspection of chest normal Resp normal respiratory effort Auscultation: diminished lung sounds right lower Cardio Rate: regular rate Rhythm: regular rhythm Heart Sounds: S1 normal and S2 normal; Negative for click, gallop or murmur Extremity no pedal edema Psych cooperative Psych Narrative: Seems to be mildly confused this morning. Assessment & Plan Assessment/Plan (1) NSTEMI, initial episode of care: PLAN: Patient denies any recurrence of chest or left arm discomfort. She is tolerating the beta-juan diego and Imdur without incident. We recommend given the patient's confusion and history of dementia from a cardiovascular standpoint the patient can be discharged home to the care of the family. Would recommend continuing the Imdur at 30 mg every morning metoprolol tartrate 12.5 mg every morning and utilizing sublingual nitroglycerin as needed. I went over the utilization of nitro sublingual with the patient's daughter. (2) HTN (hypertension): QUALIFIERS: Hypertension type: primary hypertension Qualified Code(s): I10 - Essential (primary) hypertension PLAN: Blood pressure is adequate controlled on her current medical therapy. (3) Dementia: QUALIFIERS: Dementia type: unspecified type Dementia severity: unspecified severity Dementia behavioral or psychological symptom: with other behavioral disturbance Qualified Code(s): F03.918 - Unspecified dementia, unspecified severity, with other behavioral disturbance PLAN: Further treatment of her dementia per the primary service. The patient did seem to be more confused this morning and had an episode of confusion overnight according to the daughter. PLAN: Plan 1. From a cardiovascular standpoint the patient can be discharged to home. 2. Continue Imdur 30 mg every morning, metoprolol 12.5 mg tartrate every morning and sublingual nitroglycerin as needed. 3. Patient should follow-up with the [facility] in 4 to 6 weeks and as needed. Charges/Coding Visit Charges Inpatient E&M: 22117 Subs Hosp L2
[2025-05-22 09:13] VITALS: BP 119/81; PULSE 63; RESP 17; TEMP 36.4; O2SAT 100
[2025-05-22] MEDS: Memantine Hydrochloride 10 MG Tablet PO (09:18)
[2025-05-22 09:19] VITALS: PULSE 63
--- NOTE | 2025-05-22 09:25 | PCM.DC.SUM ---
Providers Date of Admission: 05/20/25 Primary Care Physician: Dr. Liane Stephenson, DO Consultations 05/20/25 19:55 Consult: Cardiology Routine Consulting Provider: Woody Tolliver Reason for Consult: Chest Pain, NSTEMI EMERGENT Consult: No MD Notified: Yes Date Notified: 05/20/25 Time Notified: 17:50 Method of Notification: ED Physician Initiated Reason For Visit: CHEST PAIN, NSTEMI Diagnosis Discharge Diagnosis (1) NSTEMI, initial episode of care: Status: Acute Code(s): I21.4 - Non-ST elevation (NSTEMI) myocardial infarction Plan Patient is an 84-year-old lady who presented to the emergency department with dizziness as well as chest pain radiating down the left breast and. Was found to have elevated troponin consistent with acute non-STEMI treatment initiated per protocol admitted to a monitored bed for further management 1. Acute non-STEMI ? Patient presented with chest pain as well as elevated troponin. Admitted to monitored bed treatment initiated with heparin in addition to Plavix beta-blockers and statin therapy. 2D echo ordered for regional wall motion abnormalities and consultation placed to cardiology definitive management deferred ? 05/22/2025; Case was discussed with Dr. Dominguez who placed you conservative management at this point. Plan is for patient to be discharged home on Imdur and metoprolol every morning as well add sublingual nitroglycerin as needed ? Echo obtained during patient hospital stay demonstrated Interpretation Summary Mild concentric left ventricular hypertrophy. The left ventricular ejection fraction is 65 %. Stage 1 diastolic dysfunction. Mild-Moderate (1-2+) posteriorly directed mitral valve insufficiency. Aortic valve sclerosis without stenosis. 2. Dyslipidemia ?Patient is on statin therapy, continued at home dose 3. Gout ? Patient is on allopurinol continue 4. Hypertension ? Blood pressure controlled, home medications continued with dose adjustment as needed 5. CKD ruled out 6. Dementia ? Patient is on memantine in addition to supportive 7. DVT prophylaxis ? Patient is on heparin Medications at Discharge Home Medications atorvastatin 40 mg tablet 40 mg PO QHS CHOLESTEROL 10/07/22 clopidogrel 75 mg tablet 75 mg PO DAILY BLOOD THINNER 10/07/22 ursodiol 250 mg tablet 250 mg PO BID #60 tabs 10/09/22 allopurinol 100 mg tablet 100 mg PO DAILY 05/20/25 memantine 10 mg tablet 10 mg PO BID 05/20/25 trandolapril 4 mg tablet 4 mg PO DAILY 05/20/25 isosorbide mononitrate 30 mg tablet,extended release 24 hr 30 mg PO DAILY #90 tabs 05/22/25 metoprolol tartrate 25 mg tablet 12.5 mg (1/2 x 25 mg) PO DAILY 90 days #45 tabs 05/22/25 nitroglycerin 0.4 mg sublingual tablet 0.4 mg sublingual Q5M PRN CHEST PAIN #30 tabs 05/22/25 Hospital Course Summary of Care Provided Minutes Spent on Discharge: 35 Physical Exam Narrative GENERAL: cooperative HEENT: Atraumatic; normocephalic EYES; Anicteric, Normal Conjunctiva NECK; supple, normal thyroid, RESPIRATORY: Diminished to auscultation CARDIOVASCULAR: Regular S1 S2, GI: soft, normoactive bowel sounds, : No Renal angle tenderness; EXTREMITIES: No edema, no clubbing, MUSCULOSKELETAL: no muscle wasting NEURO: Awake; no lateralizing signs. SKIN: No Rash PSYCH; Flat affect Weight / BMI Weight Weight: 62.9 kg Body Mass Index (BMI) 29.0 ABG / Lab / Microbiology Data 05/22/25 06:31 05/22/25 06:31 Laboratory: Laboratory Results - last 24 hr 05/22/25 06:31: WBC 9.4, RBC 3.88 L, Hgb 12.0, Hct 35.7 L, MCV 92.0, MCH 30.9, MCHC 33.6, RDW Std Deviation 44.1 H, RDW Coeff of [place] 13.2, Plt Count 257, MPV 10.3, Immature Gran % (Auto) 0.400, Neut % (Auto) 61.5, Lymph % (Auto) 25.2, [place] % (Auto) 9.1, Eos % (Auto) 3.2, Baso % (Auto) 0.6, Absolute Neuts (auto) 5.8, Absolute Lymphs (auto) 2.37, Nucleated RBC % 0, Sodium 140, Potassium 3.6, Chloride 106, Carbon Dioxide 22.4, Anion Gap 11, BUN 22 H, Creatinine 1.03, Estim Creat Clear Calc 34.27 L, Est GFR (MDRD) Non-Af 54 L, BUN/Creatinine Ratio 21.1 H, Glucose 121 H, Calcium 8.8, Phosphorus 3.5, Magnesium 1.9 Radiography Diagnostic Testing: Radiology Impression Echocardiogram 05/21/25 05:55 Interpretation Summary Mild concentric left ventricular hypertrophy. The left ventricular ejection fraction is 65 %. Stage 1 diastolic dysfunction. Mild-Moderate (1-2+) posteriorly directed mitral valve insufficiency. Aortic valve sclerosis without stenosis. Ordering Physician: Ignacia Parsons Performed By: Norman Lockett RCS D/C Instructions Discharge Activity: Return to Normal Activity Call your doctor if you observe: Fever of 101 or Higher, Shortness of breath, Fainting spells and Chest pain DC O2, CPAP, BIPAP Needs Home O2 Discharge instructions: No Meaningful Use Info Meaningful Use Meaningful Use Diagnoses (Choose all that apply): AMI AMI/Post PCI/Angioplasty Aspirin given w/in 24hrs of arrival?: No Reason no aspirin w/in 24hrs of arrival?: Allergy ASA at discharge?: No Reason ASA not ordered:: Allergy Antiplatelet Therapy at Discharge:: Yes Statins at discharge?: Yes Paramjit/ARB at discharge?: Yes Beta Capo at discharge?: Yes Done w/ Acute CA measure.: Yes Documented LVEF (%): 65 Discharge Plan Admission Admit Date/Time: 05/20/25 17:47 Attending Provider: Miller Cross Primary Care Provider: Liane Stephenson Consulting Providers: Ignacia Parsons; Sharon Dugan; Ade Ryder; Pola Dumont; Tavo Wilson; Caleb Guardado; Martinez Hoang; Hansel Vasques; Alcira Thakur; Luis Dominguez; Chica Peters; Martin Arias; Bryan Syed; Francois Shahid NP; Brigida Dixon PA; Preston Leiva Discharge Orders/Prescriptions Prescriptions: New isosorbide mononitrate 30 mg Tablet Extended Release 24 Hr 30 mg PO DAILY Qty: 90 0RF nitroglycerin 0.4 mg Tablet, Sublingual 0.4 mg sublingual Q5M PRN (Reason: CHEST PAIN) Qty: 30 0RF metoprolol tartrate 25 mg Tablet 12.5 mg PO DAILY 90 Days Qty: 45 0RF Continued atorvastatin 40 MG tablet 40 mg PO QHS clopidogrel 75 MG tablet 75 mg PO DAILY ursodiol 250 mg tablet 250 mg PO BID Qty: 60 0RF trandolapril 4 mg tablet 4 mg PO DAILY allopurinol 100 mg tablet 100 mg PO DAILY memantine 10 mg tablet 10 mg PO BID Discontinued hydrochlorothiazide 25 MG tablet 12.5 mg PO DAILY Patient Comments: blood pressure Referrals / Follow Up: Hansel Vasques MD [Med Staff - Active Staff] - Within 1 Month Liane Stephenson DO [Primary Care Provider] - Within 2 Weeks Disposition Disposition (needs filled in before D/C Order can be placed): Home, Self Care Charges/Coding Visit Charges Inpatient E&M: 66811 Disch Hosp >30min
--- NOTE | 2025-05-22 11:44 | CASEMGMT ---
Patient has order for discharge. RN CM in to discuss needs at discharge, daughter at bedside. Patient denies needs or help at discharge. Patient had no further questions or concerns.
[2025-05-22 12:08] VITALS: BP 102/54; PULSE 58; RESP 17; TEMP 36.6; O2SAT 100
== END 2025-05-22 12:22 | disposition home or self-care (01) | DRG 282 ==
LOC: ED 14:41 → PCU 18:07
PROVIDERS: Admitting Provider Family Medicine; Emergency Provider Emergency Medicine; PCP Family Medicine; Visit Provider Internal Medicine
DX: I21.4 Non-ST elevation (NSTEMI) myocardial infarction (principal); E66.3 Overweight; N18.30 Chronic kidney disease, stage 3 unspecified; I12.9 Hypertensive chronic kidney disease with stage 1 through stage 4 chronic kidney disease, or unspecified chronic kidney disease; M10.9 Gout, unspecified; E78.00 Pure hypercholesterolemia, unspecified; Z90.710 Acquired absence of both cervix and uterus; Z79.899 Other long term (current) drug therapy; Z96.652 Presence of left artificial knee joint; Z90.49 Acquired absence of other specified parts of digestive tract; R73.9 Hyperglycemia, unspecified; Z86.79 Personal history of other diseases of the circulatory system; Z79.02 Long term (current) use of antithrombotics/antiplatelets; Z68.29 Body mass index [BMI] 29.0-29.9, adult
CPT/HCPCS: 36415; 71045; 73030; 80048; 80053; 80061; 83735; 83880; 84100; 84484; 85025; 85379; 85610; 85730; 93005; 93306; 94668; 99285; Q9957; A4216

== ENCOUNTER 2025-05-27 21:19 | Inpatient (IN) | payer MEDICARE, SELFPAY ==
[2025-05-27 21:19] VITALS: BP 146/80; PULSE 72; RESP 20; TEMP 36.1; O2SAT 99; BMI 29.1
--- NOTE | 2025-05-27 21:43 | EKG12_ITS ---
Test Reason : CP Blood Pressure : */* mmHG Vent. Rate : 72 BPM Atrial Rate : 72 BPM P-R Int : 172 ms QRS Dur : 130 ms QT Int : 428 ms P-R-T Axes : 56 -54 17 degrees QTcB Int : 468 ms Normal sinus rhythm Left axis deviation Right bundle branch block Inferior infarct (cited on or before 07-Oct-2022) Abnormal ECG Confirmed by Luis Dominguez ([id number]), order editor LANE ALEMAN ([id number]) on 05/29/2025 1:12:04 PM Referred By: RINA Confirmed By: Luis Dominguez
--- NOTE | 2025-05-27 21:44 | ED.VIS.CHEST ---
HPI History of Present Illness Chief Complaint: Chest Pain Detail of Chief Complaint: Chest pain Informant: patient and family Narrative Narrative: Patient presents with left-sided chest pain that she has had for the last week. She was seen for same 1 week ago and admitted for 2 days and diagnosed with a non-STEMI. She was treated medically. There was no intervention. Patient with history of dementia. Today she was complaining of chest discomfort again to the left side of her chest. gave her some nitro glycerin it seemed to help her pain. She currently does not have pain. Patient denies recent travel or surgery. She has history of hypertension as well as cholesterol. History of CKD and history of dementia. [facility] Medical History (Updated 05/27/25 @ 23:[address] Miller Rush DO) HLD (hyperlipidemia) HTN (hypertension) Dementia Gout Overweight Chronic kidney disease (CKD), stage III (moderate) Stenosis of retinal artery Macular degeneration Home Medications ?Medication ?Instructions ?Recorded ?Last Taken ?Type atorvastatin 40 mg tablet 40 mg PO QHS CHOLESTEROL 10/07/22 10/06/22 History clopidogrel 75 mg tablet 75 mg PO DAILY BLOOD THINNER 10/07/22 10/06/22 History ursodiol 250 mg tablet 250 mg PO BID gallbladder #60 tabs 10/09/22 Unknown Rx allopurinol 100 mg tablet 100 mg PO DAILY gout 05/20/25 Unknown History memantine 10 mg tablet 10 mg PO BID memory 05/20/25 Unknown History trandolapril 4 mg tablet 4 mg PO DAILY blood pressure 05/20/25 Unknown History isosorbide mononitrate 30 mg 30 mg PO DAILY #90 tabs 05/22/25 Unknown Rx tablet,extended release 24 hr metoprolol tartrate 25 mg tablet 12.5 mg (1/2 x 25 mg) PO DAILY 90 05/22/25 Unknown Rx days #45 tabs nitroglycerin 0.4 mg sublingual 0.4 mg sublingual Q5M PRN CHEST 05/22/25 Unknown Rx tablet PAIN #30 tabs Allergy/AdvReac Type Severity Reaction Status Date / Time aspirin AdvReac Unknown Verified 05/27/25 21:19 Family History Father Myocardial infarction Brother Myocardial infarction CVA (cerebral vascular accident) Mother Heart disease Surgical History H/O: hysterectomy History of knee replacement procedure of left knee History of spinal fusion Hx of cholecystectomy Social History household members: spouse Smoking Status: Never smoker alcohol intake: never substance use type: does not use ROS ROS ED Review of Systems ROS Unobtainable: other Constitutional Constitutional ED: Reports lethargy; Denies chills, fever(s), sweats or weight loss Eyes Eyes: Denies blurry vision, change in vision or diplopia ENT ENT ED: Denies rhinorrhea or sore throat Cardiovascular Cardiovascular: Reports chest pain; Denies orthopnea or racing heartbeat Respiratory/Chest Respiratory/Chest: Denies cough, dyspnea, dyspnea on exertion, orthopnea or sputum Gastrointestinal Gastrointestinal: Denies abdominal pain, diarrhea, nausea or vomiting Genitourinary Genitourinary ED: Denies dysuria, hematuria or urinary frequency Musculoskeletal Musculoskeletal: Denies arthralgias, back pain, myalgias or neck pain Integumentary Denies abscess, Abrasions or rash Neurologic Neurologic: Denies headache(s) or weakness Psychiatric Psychiatric: Denies anxiety, depression or suicidal thoughts Endocrine Endocrinology: Denies polydipsia, polyphagia or polyuria Hematologic/Lymphatic Hematologic/Lymphatic: Denies easy bleeding, easy bruising or lymphadenopathy Allergic/Immunologic Allergic/Immunologic ED: Denies mouth swelling, tongue swelling or urticaria EXAM Physical Exam Const Vital Signs: 05/27/25 21:19 05/27/25 21:43 05/27/25 22:19 Temperature 97 F L Temperature Source Temporal Pulse Rate 72 62 Respiratory Rate 20 H 18 Respiratory Effort Normal Blood Pressure 146/80 H 137/69 H Blood Pressure Mean 102 91 Pulse Ox 99 98 Oxygen Delivery Method Room Air Room Air 05/27/25 23:00 Temperature Temperature Source Pulse Rate 65 Respiratory Rate 18 Respiratory Effort Blood Pressure 143/70 H Blood Pressure Mean 94 Pulse Ox 99 Oxygen Delivery Method Room Air Positive well nourished and well developed General Appearance ED: well developed and NAD HEENT Reports TM's clear and moist mucous membranes normocephalic and atraumatic; Negative for trauma or tenderness Tympanic Membrane ED: Yes TM's clear Eyes PERRL and EOMs intact bilaterally General Eye ED: Negative for pale conjunctiva or scleral icterus Neck no lymphadenopathy, supple and no JVD General: Negative for tenderness Chest Wall inspection of chest normal and palpation of chest normal Chest: Negative for tenderness Resp normal respiratory effort and clear to auscultation bilaterally Effort and Inspection: Negative for respiratory distress or pain with movement Auscultation: Negative for rhonchi, wheezes or diminished lung sounds Cardio regular rate, regular rhythm, S1 normal heart sound, S2 normal heart sound and no murmurs Peripheral Pulses: pulses 2+ throughout GI normal to inspection, nondistended, normoactive bowel sounds, soft to palpation, non-tender, non-distended and no masses Back/Spine no CVA tenderness and no thoracic nor lumbar tenderness Extremity normal to inspection General Extremety ED: Negative for edema General Extremity: Negative for edema Neuro oriented x3, CN's II-XII intact bilaterally, no sensory deficits noted and gait normal Sensorium / Orientation: awake, alert, oriented to person, oriented to place and oriented to time Motor Exam: strength 5/5 throughout and strength abnormal Psych mental status grossly normal Skin no rashes or lesions noted and no wounds Heart Score History: Moderately Suspicious ECG: Nonspecific Repolarization Age: >/= 65 years Risk Factors: >/= 3 Risk Factors or History of CAD Troponin: >/=3 x Normal Limit Score: 8 MDM MDM MDM Narrative Medical decision making narrative: Patient presents with chest pain ongoing over the last week. Admitted initially for non-STEMI and decision was made to treat patient medically. Patient went home and has continued to have chest discomfort intermittently especially with activity and exertion. IV line established. EKG obtained arrival shows sinus rhythm with ventricular rate of 72 bpm with right bundle branch block. CBC with differential showed white count 10.0 with hemoglobin 11.3 and platelet count of 257. Chemistries unremarkable. Troponin was elevated at 206. Patient started on a heparin drip. Will discuss case with hospitalist to evaluate patient for admission for non-STEMI. Patient may require heart cath and possible intervention. Family comfortable with plan as well as patient after discussing case with hospitalist at cardiology. Spoke with Dr. Wilson who stated that should treat her as a non-STEMI. I did start patient on a heparin drip. I was told one of the outreach assistant would see her in the morning and determine next steps. Lab Data Attestation: I reviewed the patient's lab results. Labs: Laboratory Results - last 24 hr 05/27/25 21:46 WBC 10.0 RBC 3.61 L Hgb 11.3 L Hct 33.9 L MCV 93.9 MCH 31.3 MCHC 33.3 RDW Std Deviation 46.0 H RDW Coeff of [place] 13.4 Plt Count 257 MPV 9.9 Immature Gran % (Auto) 0.100 Neut % (Auto) 54.9 Lymph % (Auto) 32.3 [place] % (Auto) 8.8 Eos % (Auto) 3.2 Baso % (Auto) 0.7 Absolute Neuts (auto) 5.5 Absolute Lymphs (auto) 3.24 Nucleated RBC % 0 D-Dimer Quant (PE/DVT) 0.48 Sodium 142 Potassium 3.8 Chloride 110 H Carbon Dioxide 22.0 Anion Gap 10 BUN 19 Creatinine 1.20 Estim Creat Clear Calc 29.48 L Est GFR (MDRD) Non-Af 45 L BUN/Creatinine Ratio 16.0 Glucose 85 Calcium 8.6 Troponin T High Sens 206 H* D Radiography Diagnostic Testing: Clinical Impression(s) from Imaging Studies Chest X-Ray 05/27/25 22:00 IMPRESSION: No acute cardiopulmonary abnormality. Reading Location: [id number] view chest x-ray obtained interpreted by myself is no evidence of infiltrate or pneumothorax or acute disease process. Radiology in agreement. EKG Initial EKG: Attestation: I personally reviewed and interpreted this EKG as follows: Comments: Sinus rhythm with rate of 72 bpm with right bundle branch block and no acute ST segment change Discharge Plan Dx/Rx/DC Orders Clinical Impression: Chest pain, Non-ST elevated myocardial infarction Disposition Disposition: Acute Care [facility]
[2025-05-27] MEDS: 0.9% Normal Saline (1000mL) 1,000 ML 150 ML IV (21:49)
--- OUTSIDE RECORDS SUMMARY | 2025-05-27 21:57 | XMS RPT_ITS | CCD ---
Author Organization [facility] Care Team Providers Care Utility Supervisor [employer] Name Role Phone Dr. Liane Stephenson Primary Care Provider Dr. Fabrizio Maier Emergency Provider Jaqueline, Dr. Ignacia Farley Admit Provider Dr. Ignacia Parsons Attending Provider Dr. Ignacia Parsons Other Provider Dr. Rafa Morrow Attending Provider Dr. Rafa Morrow Other Provider Friend, Dr. Golden Attending Provider Dr. Rafa Morrow Referring Provider Dr. Liane Stephenson DO Primary Care Provider Dr. Liane Stephenson DO Attending Provider Dr. Liane Stephenson DO Referring Provider Dr. Liane Stephenson DO Primary Care Provider Dr. Liane Stephenson DO Attending Provider Dr. Liane Stephenson DO Referring Provider Dr. Devin Piña DO Emergency Provider Jaqueline ROBISON, Dr. Ignacia Farley Admit Provider Dr. Ignacia Parsons MD Attending Provider Jaqueline ROBISON, Dr. Ignacia Farley Other Provider Tay ROBISON, Dr. Bhatt Attending Provider Unavailpanda Dugan MD, Dr. Herrera Other Provider Unavailable Aleksey ROBISON, Dr. Booker Other Provider Unavailable Tim ROBISON, Dr. Ecsalona Other Provider Steve ROBISON, Dr. Vo Other Provider Geo ROBISON, Dr. Ellis Other Provider Natalya ROBISON, Dr. Henriquez Other Provider Unavailable Layo ROBISON, Dr. Hamm Other Provider Ofe ROBISON, Dr. Eli Other Provider Angelica ROBISON, Dr. Smith Other Provider Lorraine ROBISON, Dr. Coto Other Provider Hugo ROBISON, Dr. Salazar Other Provider Yahaira ROBISON, Dr. Adams Other Provider Zehra DREDGE MASTER-C, Adelina Everett Other Provider Brigida Boles Other Provider Preston Corona Other Provider Tya ROBISON, Dr. Bhatt Other Provider Unavailable Steve ROBISON, Dr. Vo Attending Provider Angelica ROBISON, Dr. Smith Attending Provider Ignacia Parsons Consulting Unavailable Ignacia Parsons Admitting Unavailable Malys, Liane Primary Care Unavailable Miller Cross Attending Unavailable Amro, Ahmed Consulting Unavailable Jabri, Ahmad Consulting Unavailable Mostafa, Pola Consulting Unavailable Tavo Wilson Consulting Unavailable Caleb Guardado Consulting Unavailable Martinez Hoang Consulting Unavailable Hansel Vasques Consulting Unavailable Alcira Thakur Consulting Unavailable Luis Dominguez Consulting Unavailable Chica Peters Consulting Unavailabl e Martin Arias Consulting Unavailable Bryan Syed Consulting Unavailable Zehra DREDGE MASTER, Adelina Everett Consulting Unavailable Zack FAUSTIN, Brigida M Consulting Unavail able Preston Leiva Consulting Unavailable Miller Cross Consulting Unavailable Ignacia Parsons Attending Unavailable Luis Dominguez Attending Unavailable Arash Cruz Referring Unavailable Malys, Liane Primary Care Unavailable Arash Cruz Attending Unavailable Malys, Liane Primary Care Unavailable Malys, Liane Attending Unavailable Malys, Liane Referring Unavailable Malys, Liane Primary Care Unavailable Malys, Liane Attending Unavailable Malys, Liane Referring Unavailable Malys, Liane Primary Care Unavailable Malys, Liane Attending Unavailable Malys, Liane Referring Unavailable White, Ignacia L Admitting Unavailable Ignacia Parsons L Consulting Unavailable Malys, Liane Primary Care Unavailable Miller Cross Attending Unavailable Sharon Dugan Consulting Unavailable JaSalena jaimemakaleb Consulting Unavailable Mostduane Pola Consulting Unavailable Tavo Wilson Consulting Unavailable Caleb Guardado Consulting Unavailable Martinez Hoang Consulting Unavailable Miguel Vasquesril Consulting Unavailable BelAlcira rubin Consulting Unavailable Luis Dominguez Consulting Unavailable Marley Petersadeflorentin Consulting UnavailMartin Pham Consulting Unavailable Bryan Syed Consulting Unavailable Roof Adelina JHAVERI Consulting Unavailable Zack FAUSTIN, Brigida Mackey Consulting Unavail able Preston Leiva Consulting Unavailable Tavo Wilson Attending Unavailable Malys, Liane Primary Care Unavailable Allergies Allergy Classification Reported Allergen(s) Allergy Type Date of Onset Reaction(s) Facility (17 sources) Aspirin Drug Allergy 07-01-2021 Unknown [facility] Comment on above: PT HAS HX OF MACULAR DEGENERATION (1 source) Aspirin Drug Allergy 05-20-2025 [facility] Repository Medications Current Medications Medication Drug Class(es) Dates Sig (Normalized) Sig (Original) allopurinol 100 mg oral tablet (2 sources) Xanthine Oxidase Inhibitor Start: 05-20-2025 take 1 tablet by mouth once daily Allopurinol 100 mg tablet Active 100 mg PO DAILY May 20, 2025 12:00am gout atorvastatin 40 mg oral tablet (20 sources) HMG-CoA Reductase Inhibitor Start: 10-07-2022 take 1 tablet by mouth at bedtime Atorvastatin 40 MG tablet Active 40 mg PO AT BEDTIME October 07, 2022 6:34pm CHOLESTEROL Start: 06-16-2019 End: 10-07-2022 Atorvastatin 40 MG tablet Discontinued 40 mg PO AT BEDTIME 30 0 June 16, 2019 12:00am October 07, 2022 [...] mg PO DAILY October 07, 2022 6:34pm BLOOD THINNER 24 hr isosorbide mononitrate 30 mg extended release oral tablet (1 source) Nitrate Vasodilator Start: 05-22-2025 take 1 tablet by mouth once daily, then take 1 tablet by mouth every twenty-four hours Isosorbide Mononitrate 30 mg Tablet Extended Release 24 Hr Active 30 mg PO DAILY 90 0 May 22, 2025 12:00am meclizine hydrochloride 12.5 mg oral tablet (2 sources) Antiemetic Start: 06-01-2021 Meclizine Active 12.5 MG PO .4 TIMES DAILY June 01, 2021 12:23pm memantine hydrochloride 10 mg oral tablet (2 sources) M-hsyjtp-H-asparta te Receptor Antagonist Start: 05-20-2025 take 1 tablet by mouth twice daily Memantine 10 mg tablet Active 10 mg PO TWICE A DAY May 20, 2025 12:00am memory metoprolol tartrate 25 mg oral tablet (1 source) beta-Adrenergic Juan Diego Start: 05-22-2025 Metoprolol Tartrate 25 mg Tablet Active 12.5 mg PO DAILY 45 90 0 May 22, 2025 12:00am nitroglycerin 0.4 mg sublingual tablet (1 source) Nitrate Vasodilator Start: 05-22-2025 Nitroglycerin 0.4 mg Tablet, Sublingual Active 0.4 mg SL Q5M as needed for CHEST PAIN 30 May 22, 2025 12:00am trandolapril 4 mg oral tablet (19 sources) Angiotensin Converting Enzyme Inhibitor Start: 12-17-2015 End: 05-20-2025 take 1 tablet by mouth once daily Trandolapril 4 mg tablet Active 4 mg PO DAILY May 20, 2025 12:00am blood pressure ursodiol 250 mg oral tablet (14 sources) Bile Acid Start: 10-09-2022 take 1 tablet by mouth twice daily Ursodiol 250 mg tablet Active 250 mg PO TWICE A DAY 60 0 October 09, 2022 1:00am gallbladder Completed/Discontinued Medications Medication Drug Class(es) Dates Sig (Normalized) Sig (Original) amoxicillin 875 mg / clavulanate 125 mg oral tablet (4 sources) Penicillin-class Antibacterial Start: 03-16-2024 End: 06-30-2024 [...] 17, 2015 1:00am January 01, 2016 1:27pm hydroCHLOROthiazide 25 mg oral tablet (17 sources) Thiazide Diuretic Start: 12-17-2015 End: 05-22-2025 Hydrochlorothiazide 25 MG tablet Discontinued 12.5 mg PO DAILY December 17, 2015 1:00am May 22, 2025 9:19am diuretic Start: 12-17-2015 take 12.5 mg by mout h once daily Hydrochlorothiazide Active 12.5 MG PO DAILY December 17, 2015 1:00am Problems Active Problems Problem Classification Problem Date Documented Da te Episodic/Chronic Acute myocardial infarction (6 sources) Myocardial infarction; Translations: [Non-ST elevation (NSTEMI) myocardial infarction] Onset: 05-22-2025 05-20-2025 Chronic Blindness and vision defects (17 sources) Visual disturbance; Translations: [Unspecified visual disturbance] 06-15-2019 Episodic Conditions associated with dizziness or vertigo (17 sources) Vertigo of central origin; Translations: [Vertigo of central origin] 06-09-2021 Episodic Delirium, dementia, and amnestic and other cognitive disorders (2 sources) Dementia; Translations: [Unspecified dementia without behavioral disturbance] 05-21-2025 Chronic Disorders of lipid metabolism (20 sources) Hyperlipidemia; Translations: [Hyperlipidemia, unspecified] Onset: 05-22-2025 05-31-2021 Chronic Essential hypertension (20 sources) Hypertensive disorder; Translations: [Essential (primary) hypertension] Onset: 05-22-2025 05-31-2021 Chronic Nausea and vomiting (19 sources) Nausea and vomiting; Translations: [Nausea with vomiting, unspecified] Episodic Osteoporosis (1 source) Age-related osteoporosis without current pathological fracture; Translations: [Age-related osteoporosis without current pathological fracture] Onset: 01-11-2025 Chronic Other aftercare (1 source) Encounter for therapeutic drug level monitoring; Translations: [Encounter for therapeutic drug level monitoring] Onset: 04-13-2025 Episodic Other liver diseases (15 sources) Inflammatory disease of liver; Translations: [Inflammatory liver disease, unspecified] 10-17-2022 Chronic Other liver diseases (4 sources) Inflammatory liver disease, unspecified; Translations: [Hepatitis, unspecified] Chronic Other liver diseases (19 sources) Enzyme level - finding; Translations: [Elevated transaminase measurement] Episodic Other non-traumatic joint disorders (12 sources) Pain in wrist; Translations: [Pain in right wrist] 01-01-2023 Episodic Other nutritional; endocrine; and metabolic disorders (17 sources) Obesity; Translations: [Obesity, unspecified] 05-31-2021 Chronic Pancreatic disorders (not diabetes) (19 sources) Acute pancreatitis; Translations: [Acute pancreatitis without necrosis or infection, unspecified] Episodic Retinal detachments; defects; vascular occlusion; and retinopathy (17 sources) Degenerative disorder of macula ; Translations: [Unspecified macular degeneration] 05-31-2021 Chronic Unclassified (1 source) APPOINTMENT WITH ADELINA SHAHID N.P. Unclassified (2 sources) Unspecified dementia, unspecified severity, with other behavioral disturbance; Translations: [Unspecified dementia, unspecified severity, with other behavioral disturbance] Onset: 05-22-2025 Past or Other Problems Problem Classification Problem Date Documented Da te Episodic/Chronic Abdominal pain (1 source) Lower abdominal pain, unspecified; Translations: [Lower abdominal pain, unspecified] Onset: 07-14-2024 Episodic Results Test Name Value Interpretation Reference Range Facility Basic Metabolic Profile (BMP )on 05-24-2025 BUN Normal 4-19 [facility] Comment on above: Result Comment: Canc elled via OM: Order cancelled - Patient discharged Performed By: #### L 100.0100, L500.2500 #### [facility] [address] [place], [address] BUN/CRE Normal 10-20 [facility] Comment on above: Result Comment: Canc elled via OM: Order cancelled - Patient discharged Performed By: #### L 100.0100, L500.2500 #### [facility] [address] [place], [address] Calcium Normal 7.6-11.0 [facility] Comment on above: Result Comment: Canc elled via OM: Order cancelled - Patient discharged Performed By: #### L 100.0100, L500.2500 #### [facility] [address] [place], [address] CL Normal 98-108 [facility] Comment on above: Result Comment: Canc elled via OM: Order cancelled - Patient discharged Performed By: #### L 100.0100, L500.2500 #### [facility] [address] [place], [address] CO2 Normal 21.0-32.0 [facility] Comment on above: Result Comment: Canc elled via OM: Order cancelled - Patient discharged Performed By: #### L 100.0100, L500.2500 #### [facility] [address] [place], [address] CREAT,SERUM Normal 0.70-1.20 [facility] Comment on above: Result Comment: Canc elled via OM: Order cancelled - Patient discharged Performed By: #### L 100.0100, L500.2500 #### [facility] [address] [place], [address] eGFR Normal >60 [facility] Comment on above: Result Comment: Canc elled via OM: Order cancelled - Patient discharged Performed By: #### L 100.0100, L500.2500 #### [facility] [address] [place], [address] GAP Normal 5-15 [facility] Comment on above: Result Comment: Canc elled via OM: Order cancelled - Patient discharged Performed By: #### L 100.0100, L500.2500 #### [facility] [address] [place], [address] GLU Normal 70-99 [facility] Comment on above: Result Comment: Canc elled via OM: Order cancelled - Patient discharged Performed By: #### L 100.0100, L500.2500 #### [facility] [address] [place], [address] Potassium Normal 3.3-5.1 [facility] Comment on above: Result Comment: Canc elled via OM: Order cancelled - Patient discharged Performed By: #### L 100.0100, L500.2500 #### [facility] [address] [place], [address] Basic Metabolic Profile (BMP) Normal 133-145 [facility] Comment on above: Result Comment: Canc elled via OM: Order cancelled - Patient discharged Performed By: #### L 100.0100, L500.2500 #### [facility] [address] [place], [address] CBC W/Diff, Automatedon 07-1 Absolute Neut Normal 2.0-7.7 [facility] Comment on above: Result Comment: Canc elled via OM: Order cancelled - Patient discharged Performed By: #### L 100.0100, L500.2500 #### [facility] [address] [place], [address] HCT Normal 37-47 [facility] Comment on above: Result Comment: Canc elled via OM: Order cancelled - Patient discharged Performed By: #### L 100.0100, L500.2500 #### [facility] [address] [place], [address] HGB Normal 12.0-15.0 [facility] Comment on above: Result Comment: Canc elled via OM: Order cancelled - Patient discharged Performed By: #### L 100.0100, L500.2500 #### [facility] [address] [place], [address] MCH Normal 27.0-32.0 [facility] Comment on above: Result Comment: Canc elled via OM: Order cancelled - Patient discharged Performed By: #### L 100.0100, L500.2500 #### [facility] [address] [place], [address] MCHC Normal 32-36 [facility] Comment on above: Result Comment: Canc elled via OM: Order cancelled - Patient discharged Performed By: #### L 100.0100, L500.2500 #### [facility] [address] [place], [address] MCV Normal 81-99 [facility] Comment on above: Result Comment: Canc elled via OM: Order cancelled - Patient discharged Performed By: #### L 100.0100, L500.2500 #### [facility] [address] [place], [address] NEUT% Normal 47-70 [facility] Comment on above: Result Comment: Canc elled via OM: Order cancelled - Patient discharged Performed By: #### L 100.0100, L500.2500 #### [facility] [address] [place], [address] PLT Normal 150-450 [facility] Comment on above: Result Comment: Canc elled via OM: Order cancelled - Patient discharged Performed By: #### L 100.0100, L500.2500 #### [facility] [address] [place], [address] RBC Normal 4.2-5.4 [facility] Comment on above: Result Comment: Canc elled via OM: Order cancelled - Patient discharged Performed By: #### L 100.0100, L500.2500 #### [facility] [address] [place], [address] RDW CV Normal 11.6-14.6 [facility] Comment on above: Result Comment: Canc elled via OM: Order cancelled - Patient discharged Performed By: #### L 100.0100, L500.2500 #### [facility] [address] [place], [address] RDW SD Normal 35.1-43.9 [facility] Comment on above: Result Comment: Canc elled via OM: Order cancelled - Patient discharged Performed By: #### L 100.0100, L500.2500 #### [facility] [address] [place], [address] WBC Normal 4.4-11.0 [facility] Comment on above: Result Comment: Canc elled via OM: Order cancelled - Patient discharged Performed By: #### L 100.0100, L500.2500 #### [facility] [address] [place], [address] Basic Metabolic Profile (BMP )on 05-23-2025 BUN Normal 4-19 [facility] Comment on above: Result Comment: Canc elled via OM: Order cancelled - Patient discharged Performed By: #### L 500.2500, L503.7505, L501.4021, L300.8000, L100.0100 #### [facility] [address] [place], [address] BUN/CRE Normal 10-20 [facility] Comment on above: Result Comment: Canc elled via OM: Order cancelled - Patient discharged Performed By: #### L 500.2500, L503.7505, L501.4021, L300.8000, L100.0100 #### [facility] [address] [place], [address] Calcium Normal 7.6-11.0 [facility] Comment on above: Result Comment: Canc elled via OM: Order cancelled - Patient discharged Performed By: #### L 500.2500, L503.7505, L501.4021, L300.8000, L100.0100 #### [facility] [address] [place], [address] CL Normal 98-108 [facility] Comment on above: Result Comment: Canc elled via OM: Order cancelled - Patient discharged Performed By: #### L 500.2500, L503.7505, L501.4021, L300.8000, L100.0100 #### [facility] [address] [place], [address] CO2 Normal 21.0-32.0 [facility] Comment on above: Result Comment: Canc elled via OM: Order cancelled - Patient discharged Performed By: #### L 500.2500, L503.7505, L501.4021, L300.8000, L100.0100 #### [facility] [address] [place], [address] CREAT,SERUM Normal 0.70-1.20 [facility] Comment on above: Result Comment: Canc elled via OM: Order cancelled - Patient discharged Performed By: #### L 500.2500, L503.7505, L501.4021, L300.8000, L100.0100 #### [facility] [address] [place], [address] eGFR Normal >60 [facility] Comment on above: Result Comment: Canc elled via OM: Order cancelled - Patient discharged Performed By: #### L 500.2500, L503.7505, L501.4021, L300.8000, L100.0100 #### [facility] [address] [place], [address] GAP Normal 5-15 [facility] Comment on above: Result Comment: Canc elled via OM: Order cancelled - Patient discharged Performed By: #### L 500.2500, L503.7505, L501.4021, L300.8000, L100.0100 #### [facility] [address] [place], [address] GLU Normal 70-99 [facility] Comment on above: Result Comment: Canc elled via OM: Order cancelled - Patient discharged Performed By: #### L 500.2500, L503.7505, L501.4021, L300.8000, L100.0100 #### [facility] [address] [place], [address] Potassium Normal 3.3-5.1 [facility] Comment on above: Result Comment: Canc elled via OM: Order cancelled - Patient discharged Performed By: #### L 500.2500, L503.7505, L501.4021, L300.8000, L100.0100 #### [facility] [address] [place], [address] Basic Metabolic Profile (BMP) Normal 133-145 [facility] Comment on above: Result Comment: Canc elled via OM: Order cancelled - Patient discharged Performed By: #### L 500.2500, L503.7505, L501.4021, L300.8000, L100.0100 #### [facility] [address] [place], [address] CBC W/Diff, Automatedon 07-1 Absolute Neut Normal 2.0-7.7 [facility] Comment on above: Result Comment: Canc elled via OM: Order cancelled - Patient discharged Performed By: #### L 500.2500, L503.7505, L501.4021, L300.8000, L100.0100 #### [facility] [address] [place], [address] HCT Normal 37-47 [facility] Comment on above: Result Comment: Canc elled via OM: Order cancelled - Patient discharged Performed By: #### L 500.2500, L503.7505, L501.4021, L300.8000, L100.0100 #### [facility] [address] [place], [address] HGB Normal 12.0-15.0 [facility] Comment on above: Result Comment: Canc elled via OM: Order cancelled - Patient discharged Performed By: #### L 500.2500, L503.7505, L501.4021, L300.8000, L100.0100 #### [facility] [address] [place], [address] MCH Normal 27.0-32.0 [facility] Comment on above: Result Comment: Canc elled via OM: Order cancelled - Patient discharged Performed By: #### L 500.2500, L503.7505, L501.4021, L300.8000, L100.0100 #### [facility] [address] [place], [address] MCHC Normal 32-36 [facility] Comment on above: Result Comment: Canc elled via OM: Order cancelled - Patient discharged Performed By: #### L 500.2500, L503.7505, L501.4021, L300.8000, L100.0100 #### [facility] [address] [place], [address] MCV Normal 81-99 [facility] Comment on above: Result Comment: Canc elled via OM: Order cancelled - Patient discharged Performed By: #### L 500.2500, L503.7505, L501.4021, L300.8000, L100.0100 #### [facility] [address] [place], [address] NEUT% Normal 47-70 [facility] Comment on above: Result Comment: Canc elled via OM: Order cancelled - Patient discharged Performed By: #### L 500.2500, L503.7505, L501.4021, L300.8000, L100.0100 #### [facility] [address] [place], [address] PLT Normal 150-450 [facility] Comment on above: Result Comment: Canc elled via OM: Order cancelled - Patient discharged Performed By: #### L 500.2500, L503.7505, L501.4021, L300.8000, L100.0100 #### [facility] [address] [place], [address] RBC Normal 4.2-5.4 [facility] Comment on above: Result Comment: Canc elled via OM: Order cancelled - Patient discharged Performed By: #### L 500.2500, L503.7505, L501.4021, L300.8000, L100.0100 #### [facility] [address] [place], [address] RDW CV Normal 11.6-14.6 [facility] Comment on above: Result Comment: Canc elled via OM: Order cancelled - Patient discharged Performed By: #### L 500.2500, L503.7505, L501.4021, L300.8000, L100.0100 #### [facility] [address] [place], [address] RDW SD Normal 35.1-43.9 [facility] Comment on above: Result Comment: Canc elled via OM: Order cancelled - Patient discharged Performed By: #### L 500.2500, L503.7505, L501.4021, L300.8000, L100.0100 #### [facility] [facility] [address] [place], [address] WBC Normal 4.4-11.0 [facility] Comment on above: Result Comment: Canc elled via OM: Order cancelled - Patient discharged Performed By: #### L 500.2500, L503.7505, L501.4021, L300.8000, L100.0100 #### [facility] [address] [place], [address] Absolute lymphocyte countOrd ered By: Miller Cross on 05-22-2025 Lymphocytes Auto (Unsp spec) [#/Vol] 2.37 10*3/uL 0.83-4.51 [facility] Absolute neutrophil countOrd ered By: Miller Cross on 05-22-2025 Neutrophils (Bld) [#/Vol] 5.8 10*3/uL 2.0-7.7 [facility] Anion gap in Serum or Plasma Ordered By: Miller Cross on 05-22-2025 Anion gap [Moles/Vol] 11 mmol/L 03-22 [facility] Automated lymphocyte count a s percentage of total leukocytesOrdered By: Miller Cross on 05-22-2025 Lymphocytes/100 WBC Auto (Unsp spec) 25.2 % [facility] BUN/creatinine ratioOrdered By: Miller Cross on 05-22-2025 Urea nitrogen/Creatinine [Mass ratio] 21.1 mg/mg High 08-27 [facility] Basic Metabolic Profile (BMP )on 05-22-2025 BUN/CRE 21.1 RATIO High 08-27 [facility] Comment on above: Performed By: #### L 501.5200, L300.3900 #### [facility] [address] [place], [address] Calcium [Mass/Vol] 8.8 mg/dL Normal 7.6-11.0 [facility] Comment on above: Performed By: #### L 501.5200, L300.3900 #### [facility] [address] [place], [address] Chloride [Moles/Vol] 106 mmol/L Normal 98-108 [facility] Comment on above: Performed By: #### L 501.5200, L300.3900 #### [facility] [address] [place], [address] CO2 [Moles/Vol] 22.4 mmol/L Normal 21.0-32.0 [facility] Comment on above: Performed By: #### L 501.5200, L300.3900 #### [facility] [address] [place], [address] Creatinine [Mass/Vol] 1.03 mg/dL Normal 0.70-1.20 [facility] Comment on above: Performed By: #### L 501.5200, L300.3900 #### [facility] [address] [place], [address] ECRCL 34.27 ml/min Low 50-250 [facility] Comment on above: Performed By: #### L 501.5200, L300.3900 #### [facility] [address] [place], [address] GAP 11 Normal 5-15 [facility] Comment on above: Performed By: #### L 501.5200, L300.3900 #### [facility] [address] [place], [address] GFR/1.73 sq M.predicted among non-blacks MDRD (S/P/Bld) [Vol rate/Area] 54 mL/min/{1.73_m2} Low >60 [facility] Comment on above: Result Comment: mL/m in/1.73m2 CKD-EPI Creatinine Equation (2020) Performed By: #### L 501.5200, L300.3900 #### [facility] [address] [place], [address] Glucose [Mass/Vol] 121 mg/dL High 70-99 [facility] Comment on above: Performed By: #### L 501.5200, L300.3900 #### [facility] [address] [place], [address] Potassium [Moles/Vol] 3.6 mmol/L Normal 3.3-5.1 [facility] Comment on above: Performed By: #### L 501.5200, L300.3900 #### [facility] [address] [place], [address] Sodium [Moles/Vol] 140 mmol/L Normal 133-145 [facility] Comment on above: Performed By: #### L 501.5200, L300.3900 #### [facility] [address] [place], [address] Urea nitrogen [Mass/Vol] 22 mg/dL High 4-19 [facility] Comment on above: Performed By: #### L 501.5200, L300.3900 #### [facility] [address] [place], [address] Basophil percentageOrdered B y: Miller Cross on 05-22-2025 Basophils/100 WBC (Bld) 0.6 % 0-1 [facility] CBC W/Diff, Automatedon 05-08 Absolute Lymph 2.37 X10 3/uL Normal 0.83-4.51 [facility] Comment on above: Performed By: #### L 501.5200, L300.3900 #### [facility] [address] [place], [address] Absolute Neut 5.8 X10 3/uL Normal 2.0-7.7 [facility] Comment on above: Performed By: #### L 501.5200, L300.3900 #### [facility] [address] [place], [address] Basophils/100 WBC (Bld) 0.6 % Normal 0-1 [facility] Comment on above: Performed By: #### L 501.5200, L300.3900 #### [facility] [address] [place], [address] Eosinophils/100 WBC (Bld) 3.2 % Normal 0-5 [facility] Comment on above: Performed By: #### L 501.5200, L300.3900 #### [facility] [address] [place], [address] Erythrocyte distribution width (RBC) [Ratio] 13.2 % Normal 11.6-14.6 [facility] Comment on above: Performed By: #### L 501.5200, L300.3900 #### [facility] [address] [place], [address] Hematocrit (Bld) [Volume fraction] 35.7 % Low 37-47 [facility] Comment on above: Performed By: #### L 501.5200, L300.3900 #### [facility] [address] [place], [address] Hemoglobin (Bld) [Mass/Vol] 12.0 g/dL Normal 12.0-15.0 [facility] Comment on above: Performed By: #### L 501.5200, L300.3900 #### [facility] [address] [place], [address] IG% 0.400 Normal 0.0-0.9 [facility] Comment on above: Result Comment: IG% - Immature Granulocytes (promyelocytes, myelocytes and metamyelocytes) > 1% indicates that a LEFT SHIFT is Present. Performed By: #### L 501.5200, L300.3900 #### [facility] [address] [place], [address] Lymphocytes/100 WBC (Bld) 25.2 % Normal 19-41 [facility] Comment on above: Performed By: #### L 501.5200, L300.3900 #### [facility] [address] [place], [address] MCH (RBC) [Entitic mass] 30.9 pg Normal 27.0-32.0 [facility] Comment on above: Performed By: #### L 501.5200, L300.3900 #### [facility] [address] [place], [address] MCHC (RBC) [Mass/Vol] 33.6 g/dL Normal 32-36 [facility] Comment on above: Performed By: #### L 501.5200, L300.3900 #### [facility] [address] [place], [address] MCV (RBC) [Entitic vol] 92.0 fL Normal 81-99 [facility] Comment on above: Performed By: #### L 501.5200, L300.3900 #### [facility] [address] [place], [address] Monocytes/100 WBC (Bld) 9.1 % Normal 0-10 [facility] Comment on above: Performed By: #### L 501.5200, L300.3900 #### [facility] [address] [place], [address] Neutrophils/100 WBC (Bld) 61.5 % Normal 47-70 [facility] Comment on above: Performed By: #### L 501.5200, L300.3900 #### [facility] [address] [place], [address] Nucleated RBC (Bld) [#/Vol] 0 10*3/uL Normal 0-5 [facility] Comment on above: Performed By: #### L 501.5200, L300.3900 #### [facility] [address] [place], [address] Platelet mean volume (Bld) [Entitic vol] 10.3 fL Normal 6.2-12.0 [facility] Comment on above: Performed By: #### L 501.5200, L300.3900 #### [facility] [address] [place], [address] Platelets (Bld) [#/Vol] 257 10*3/uL Normal 150-450 [facility] Comment on above: Performed By: #### L 501.5200, L300.3900 #### [facility] [address] [place], [address] RBC (Bld) [#/Vol] 3.88 10*6/uL Low 4.2-5.4 [facility] Comment on above: Performed By: #### L 501.5200, L300.3900 #### [facility] [address] [place], [address] RDW SD 44.1 fl High 35.1-43.9 [facility] Comment on above: Performed By: #### L 501.5200, L300.3900 #### [facility] [address] [place], [address] WBC (Bld) [#/Vol] 9.4 10*3/uL Normal 4.4-11.0 [facility] Comment on above: Performed By: #### L 501.5200, L300.3900 #### [facility] [address] [place], [address] Carbon dioxide, total [Moles /volume] in Central venous bloodOrdered By: [place] Cross on 05-22-2025 CO2 [Moles/Vol] 22.4 mmol/L 21.0-32.0 [facility] Chloride assayOrdered By: Steve Cross on 05-22-2025 Chloride [Moles/Vol] 106 mmol/L 98-108 [facility] Electrocardiogram reportOrde red By: Adelina Brice on 05-22-2025 EKG study [facility] [address] [place] [address] 12 Lead EKG 05/20/252026 MR#: [id number] Acct: [id number] Name: EUGENIE MATA Rep #:[id number] : 1940 84 From: Adelina ludwig MD Attending Dr: Dr. [place] Cross MD Status: ADM IN Ordering Dr: Ignacia Parsons MD Date: 05/20/25 Location: [facility] Sex: F C Admitted: 05/20/25 Test Reason : CP ADMISSION Blood Pressure : */* mmHG Vent. Rate : 59 BPM Atrial Rate : 59 BPM P-R Int : 200 ms QRS Dur : 134 ms QT Int : 462 ms P-R-T Axes : 58 -48 14 degrees QTcB Int : 457 ms Sinus bradycardia Left axis deviation Right bundle branch block Inferior infarct , age undetermined Abnormal ECG When compared with ECG of 20-May-2025 19:17, MANUAL COMPARISON REQUIRED DATA IS UNCONFIRMED Confirmed by MD KRYSTLE, ADELINA ([id number]), technical editor [address] ([id number]) on 05/22/2025 10:57:50 AM Referred By: Confirmed By: ADELINA BRICE MD 05/22/251056 Date _ Adelina Brice MD CC: Dr. Ignacia Parsons MD; Dr. [place] Cross MD; Dr. Liane Stephenson, DO ~ Signed [facility] Other Phone: EKG study [facility] [address] [place] [address] 12 Lead EKG 05/21/25450 MR#: [id number] Acct: [id number] Name: EUGENIE MATA Rep #:[id number] : 1940 84 From: Adelina ludwig MD Attending Dr: Dr. [place] Cross MD Status: ADM IN Ordering Dr: Ignacia Parsons MD Date: 05/21/25 Location: [facility] Sex: F C Admitted: 05/20/25 Test Reason : AM EKG Blood Pressure : */* mmHG Vent. Rate : 58 BPM Atrial Rate : 58 BPM P-R Int : 194 ms QRS Dur : 132 ms QT Int : 468 ms P-R-T Axes : 68 -45 4 degrees QTcB Int : 459 ms Sinus bradycardia Right bundle branch block Left anterior fascicular block Bifascicular block Inferior infarct , age undetermined Abnormal ECG When compared with ECG of 20-May-2025 20:27, MANUAL COMPARISON REQUIRED DATA IS UNCONFIRMED Confirmed by MD KRYSTLE, ADELINA ([id number]), technical editor [address] ([id number]) on 05/22/2025 10:55:56 AM Referred By: Confirmed By: ADELINA BRICE MD 05/22/25 1055 Date _ Adelina Brice MD CC: Dr. Ignacia Parsons MD; Dr. [place] Cross MD; Dr. Liane Stephenson DO ~ Signed [facility] Other Phone: Eosinophil percentageOrdered By: Miller Cross on 05-22-2025 Eosinophils/100 WBC (Bld) 3.2 % 0-5 [facility] Erythrocyte distribution wid th ratioOrdered By: Miller Cross on 05-22-2025 Erythrocyte distribution width (RBC) [Ratio] 13.2 % 11.6-14.6 [facility] Erythrocyte distribution wid th standard deviationOrdered By: Miller Cross on 05-22-2025 Erythrocyte distribution width (RBC) [Ratio] 44.1 fl High 35.1-43.9 [facility] Glomerular filtration rate ( GFR) estimation/1.73 sq m using serum, plasma, or whole bOrdered By: Miller Cross on 05-22-2025 GFR/1.73 sq M.predicted among non-blacks MDRD (S/P/Bld) [Vol rate/Area] 54 mL/min/{1.73_m2} Low >60 [facility] Comment on above: mL/min/1.73m2 CKD-EP I Creatinine Equation (2020) Hematocrit Auto (Bld) [Volum e fraction]Ordered By: Miller Cross on 05-22-2025 Hematocrit (Bld) [Volume fraction] 35.7 % Low 37-47 [facility] Hemoglobin measurementOrdere d By: Miller Cross on 05-22-2025 Hemoglobin (Bld) [Mass/Vol] 12.0 g/dL 12.0-15.0 [facility] Immature granulocytes/100 WB C Auto (Bld)Ordered By: Miller Cross on 05-22-2025 Immature granulocytes/100 WBC (Bld) 0.400 % 0.0-0.9 [facility] Comment on above: IG% - Immature Granu locytes (promyelocytes, myelocytes and metamyelocytes) > 1% indicates that a LEFT SHIFT is Present. MCV (mean corpuscular volume ) determinationOrdered By: Miller Cross on 05-22-2025 MCV (RBC) [Entitic vol] 92.0 fL 81-99 [facility] Magnesiumon 05-22-2025 Magnesium [Mass/Vol] 1.9 mg/dL Normal 1.5-2.2 [facility] Comment on above: Performed By: #### L 501.5200, L300.3900 #### [facility] [address] [place], [place] [address]all [facility] [place], [address] Magnesium measurement (mass/ volume)Ordered By: Miller Cross on 05-22-2025 Magnesium (Unsp spec) [Mass/Vol] 1.9 mg/dL 1.5-2.2 [facility] Mean corpuscular hemoglobin (MCH) determinationOrdered By: Miller Cross on 05-22-2025 MCH (RBC) [Entitic mass] 30.9 pg 27.0-32.0 [facility] Mean corpuscular hemoglobin concentration (MCHC) determinationOrdered By: Miller Cross on 05-22-2025 MCHC (RBC) [Mass/Vol] 33.6 g/dL 32-36 [facility] Mean platelet volume determi nationOrdered By: Miller Cross on 05-22-2025 Platelet mean volume (Bld) [Entitic vol] 10.3 fL 6.2-12.0 [facility] Monocyte percentageOrdered B y: Miller Cross on 05-22-2025 Monocytes/100 WBC (Bld) 9.1 % 0-10 [facility] Neutrophil percentageOrdered By: Miller Cross on 05-22-2025 Neutrophils/100 WBC (Bld) 61.5 % 47-70 [facility] Nucleated red blood cell per centageOrdered By: Miller Cross on 05-22-2025 Nucleated RBC/100 WBC (Bld) [Ratio] 0 % 0-5 [facility] Phosphoruson 05-22-2025 Phosphate [Mass/Vol] 3.5 mg/dL Normal 2.7-4.5 [facility] Comment on above: Performed By: #### L 501.5200, L300.3900 #### [facility] [address] [place] [address], [address] Platelet countOrdered By: Steve Cross on 05-22-2025 Platelets (Bld) [#/Vol] 257 10*3/uL 150-450 [facility] Potassium measurement (mass/ volume)Ordered By: Miller Cross on 05-22-2025 Potassium (Unsp spec) [Mass/Vol] 3.6 mmol/L 3.3-5.1 [facility] RBC Auto (Bld) [#/Vol]Ordere d By: Miller Cross on 05-22-2025 RBC (Bld) [#/Vol] 3.88 10*6/uL Low 4.2-5.4 [facility] Serum creatinine measurement (mass/volume)Ordered By: Miller Cross on 05-22-2025 Creatinine [Mass/Vol] 1.03 mg/dL 0.70-1.20 [facility] Serum glucose measurement (m ass/volume)Ordered By: Miller Cross on 05-22-2025 Glucose [Mass/Vol] 121 mg/dL High 70-99 [facility] Serum or plasma calcium osmel urement (mass/volume)Ordered By: Miller Cross on 05-22-2025 Calcium [Mass/Vol] 8.8 mg/dL 7.6-11.0 [facility] Serum or plasma urea nitroge n measurement (mass/volume)Ordered By: Miller Cross on 05-22-2025 Urea nitrogen [Mass/Vol] 22 mg/dL High 4-19 [facility] Sodium levelOrdered By: Balwinder Cross on 05-22-2025 Sodium [Moles/Vol] 140 mmol/L 133-145 [facility] White blood cell (WBC) count Ordered By: Miller Cross on 05-22-2025 WBC (Bld) [#/Vol] 9.4 10*3/uL 4.4-11.0 [facility] 12 Lead EKGon 05-21-2025 12 Lead EKG [facility] [address] [place] [address] 12 Lead EKG 05/21/25 0451 MR#: [id number] Acct: [id number] Name: EUGENIE MATA Rep #: [id number] : 1940 84 From: Adelina Brice MD Attending Dr: Dr. [place] Cross MD Status: ADM IN Ordering Dr: Ignacia Parsons MD Date: 05/21/25 Location: [facility] Sex: F C Admitted: 05/20/25 Test Reason : AM EKG Blood Pressure : */* mmHG Vent. Rate : 58 BPM Atrial Rate : 58 BPM P-R Int : 194 ms QRS Dur : 132 ms QT Int : 468 ms P-R-T Axes : 68 -45 4 degrees QTcB Int : 459 ms Sinus bradycardia Right bundle branch block Left anterior fascicular block Bifascicular block Inferior infarct , age undetermined Abnormal ECG When compared with ECG of 20-May-2025 20:27, MANUAL COMPARISON REQUIRED DATA IS UNCONFIRMED Confirmed by MD KRYSTLE, ADELINA ([id number]), technical editor [address] ([id number]) on 05/22/2025 10:55:56 AM Referred By: Confirmed By: ADELINA BRICE MD 05/22/25 1055 Date Adelina Brice MD CC: Dr. Ignacia Parsons MD; Dr. [place] Cross MD; Dr. Liane Stephenson DO Signed Normal [facility] Activated partial thrombopla stin time (aPTT) in platelet poor plasma by coagulation aOrdered By: Ignacia Parsons on 05-21-2025 aPTT Coag (PPP) [Time] 76.7 s High 24.1-36.2 [facility] Bilirubin, totalOrdered By: Ignacia Parsons on 05-21-2025 Bilirubin [Mass/Vol] 0.28 mg/dL 0.00-1.30 [facility] CBC W/Diff, Automatedon 05-08-2024 Basophils/100 WBC (Bld) 1.0 % Normal 0-1 [facility] Comment on above: Performed By: #### L 500.2500, L503.7505, L501.4021, L300.8000, L100.0100 #### [facility] [address] [place], [address] Eosinophils/100 WBC (Bld) 3.8 % Normal 0-5 [facility] Comment on above: Performed By: #### L 500.2500, L503.7505, L501.4021, L300.8000, L100.0100 #### [facility] [address] [place], [address] Erythrocyte distribution width (RBC) [Ratio] 12.8 % Normal 11.6-14.6 [facility] Comment on above: Performed By: #### L 500.2500, L503.7505, L501.4021, L300.8000, L100.0100 #### [facility] [address] [place], [address] Hematocrit (Bld) [Volume fraction] 37.2 % Normal 37-47 [facility] Comment on above: Performed By: #### L 500.2500, L503.7505, L501.4021, L300.8000, L100.0100 #### [facility] [address] [place], [address] IG% 0.300 Normal 0.0-0.9 [facility] Comment on above: Result Comment: IG% - Immature Granulocytes (promyelocytes, myelocytes and metamyelocytes) > 1% indicates that a LEFT SHIFT is Present. Performed By: #### L 500.2500, L503.7505, L501.4021, L300.8000, L100.0100 #### [facility] [address] [place], [address] Lymphocytes/100 WBC (Bld) 35.9 % Normal 19-41 [facility] Comment on above: Performed By: #### L 500.2500, L503.7505, L501.4021, L300.8000, L100.0100 #### [facility] [address] [place], [address] MCH (RBC) [Entitic mass] 31.9 pg Normal 27.0-32.0 [facility] Comment on above: Performed By: #### L 500.2500, L503.7505, L501.4021, L300.8000, L100.0100 #### [facility] [address] [place], [address] MCHC (RBC) [Mass/Vol] 34.1 g/dL Normal 32-36 [facility] Comment on above: Performed By: #### L 500.2500, L503.7505, L501.4021, L300.8000, L100.0100 #### [facility] [address] [place], [address] MCV (RBC) [Entitic vol] 93.5 fL Normal 81-99 [facility] Comment on above: Performed By: #### L 500.2500, L503.7505, L501.4021, L300.8000, L100.0100 #### [facility] [address] [place], [address] Monocytes/100 WBC (Bld) 8.6 % Normal 0-10 [facility] Comment on above: Performed By: #### L 500.2500, L503.7505, L501.4021, L300.8000, L100.0100 #### [facility] [address] [place], [address] Neutrophils/100 WBC (Bld) 50.4 % Normal 47-70 [facility] Comment on above: Performed By: #### L 500.2500, L503.7505, L501.4021, L300.8000, L100.0100 #### [facility] [address] [place], [address] Platelet mean volume (Bld) [Entitic vol] 10.2 fL Normal 6.2-12.0 [facility] Comment on above: Performed By: #### L 500.2500, L503.7505, L501.4021, L300.8000, L100.0100 #### [facility] [address] [place], [address] Platelets (Bld) [#/Vol] 243 10*3/uL Normal 150-450 [facility] Comment on above: Performed By: #### L 500.2500, L503.7505, L501.4021, L300.8000, L100.0100 #### [facility] [address] [place], [address] RDW SD 43.8 fl Normal 35.1-43.9 [facility] Comment on above: Performed By: #### L 500.2500, L503.7505, L501.4021, L300.8000, L100.0100 #### [facility] [address] [place], [address] Hemoglobin (Bld) [Mass/Vol] 12.7 g/dL Normal 12.0-15.0 [facility] Comment on above: Performed By: #### L 500.2500, L503.7505, L501.4021, L300.8000, L100.0100 #### [facility] [address] [place], [address] RBC (Bld) [#/Vol] 3.98 10*6/uL Low 4.2-5.4 [facility] Comment on above: Performed By: #### L 500.2500, L503.7505, L501.4021, L300.8000, L100.0100 #### [facility] [address] [place], [address] WBC (Bld) [#/Vol] 7.3 10*3/uL Normal 4.4-11.0 [facility] Comment on above: Performed By: #### L 500.2500, L503.7505, L501.4021, L300.8000, L100.0100 #### [facility] [address] [place], [address] Calculated very low density lipoprotein (VLDL) cholesterol measurementOrdered By: Ignacia Parsons on 05-21-2025 Calculated very low density lipoprotein (VLDL) cholesterol measurement 22 mg/dL 5-40 [facility] Comprehensive Metabolic Prof ilon 05-21-2025 Albumin [Mass/Vol] 3.6 g/dL Normal 3.4-4.8 [facility] Comment on above: Performed By: #### L 500.2500, L503.7505, L501.4021, L300.8000, L100.0100 #### [facility] [address] [place], [address] Albumin/Globulin [Mass ratio] 1.4 {ratio} Normal 0.9-2.4 [facility] Comment on above: Performed By: #### L 500.2500, L503.7505, L501.4021, L300.8000, L100.0100 #### [facility] [address] [place], [address] ALK PHOS 57 U/L Normal 35-104 [facility] Comment on above: Performed By: #### L 500.2500, L503.7505, L501.4021, L300.8000, L100.0100 #### [facility] [address] [place], [address] ALT [Catalytic activity/Vol] 8 U/L Normal <=34 [facility] Comment on above: Performed By: #### L 500.2500, L503.7505, L501.4021, L300.8000, L100.0100 #### [facility] [address] [place], [address] AST [Catalytic activity/Vol] 23 U/L Normal <=31 [facility] Comment on above: Performed By: #### L 500.2500, L503.7505, L501.4021, L300.8000, L100.0100 #### [facility] Laboratory [address] [place], [address] Bilirubin [Mass/Vol] 0.28 mg/dL Normal 0.00-1.30 [facility] Comment on above: Performed By: #### L 500.2500, L503.7505, L501.4021, L300.8000, L100.0100 #### [facility] Laboratory [address] [place], [address] BUN/CRE 20.4 RATIO High 10-20 [facility] Comment on above: Performed By: #### L 500.2500, L503.7505, L501.4021, L300.8000, L100.0100 #### [facility] Laboratory [address] [place], [address] Calcium [Mass/Vol] 9.2 mg/dL Normal 7.6-11.0 [facility] Comment on above: Performed By: #### L 500.2500, L503.7505, L501.4021, L300.8000, L100.0100 #### [facility] Laboratory [address] [place], [address] Chloride [Moles/Vol] 106 mmol/L Normal 98-108 [facility] Comment on above: Performed By: #### L 500.2500, L503.7505, L501.4021, L300.8000, L100.0100 #### [facility] Laboratory [address] [place], [address] CO2 [Moles/Vol] 22.5 mmol/L Normal 21.0-32.0 [facility] Comment on above: Performed By: #### L 500.2500, L503.7505, L501.4021, L300.8000, L100.0100 #### [facility] [address] [place], [address] Creatinine [Mass/Vol] 0.92 mg/dL Normal 0.70-1.20 [facility] Comment on above: Performed By: #### L 500.2500, L503.7505, L501.4021, L300.8000, L100.0100 #### [facility] [address] [place], [address] ECRCL 37.96 ml/min Low 50-250 [facility] Comment on above: Performed By: #### L 500.2500, L503.7505, L501.4021, L300.8000, L100.0100 #### [facility] Laboratory [address] [place], [address] GAP 12 Normal 5-15 [facility] Comment on above: Performed By: #### L 500.2500, L503.7505, L501.4021, L300.8000, L100.0100 #### [facility] [address] [place], [address] GFR/1.73 sq M.predicted among non-blacks MDRD (S/P/Bld) [Vol rate/Area] 62 mL/min/{1.73_m2} Normal >60 [facility] Comment on above: Result Comment: mL/m in/1.73m2 CKD-EPI Creatinine Equation (2020) Performed By: #### L 500.2500, L503.7505, L501.4021, L300.8000, L100.0100 #### [facility] [address] [place], [address] Globulin (S) [Mass/Vol] 2.6 g/dL Normal 2.2-4.2 [facility] Comment on above: Performed By: #### L 500.2500, L503.7505, L501.4021, L300.8000, L100.0100 #### [facility] [address] [place], [address] Glucose [Mass/Vol] 87 mg/dL Normal 70-99 [facility] Comment on above: Performed By: #### L 500.2500, L503.7505, L501.4021, L300.8000, L100.0100 #### [facility] [address] [place], [address] Potassium [Moles/Vol] 3.9 mmol/L Normal 3.3-5.1 [facility] Comment on above: Performed By: #### L 500.2500, L503.7505, L501.4021, L300.8000, L100.0100 #### [facility] [address] [place], [address] Sodium [Moles/Vol] 140 mmol/L Normal 133-145 [facility] Comment on above: Performed By: #### L 500.2500, L503.7505, L501.4021, L300.8000, L100.0100 #### [facility] [address] [place], [address] T PROT 6.2 g/dL Normal 5.9-8.4 [facility] Comment on above: Performed By: #### L 500.2500, L503.7505, L501.4021, L300.8000, L100.0100 #### [facility] [address] [place], [address] Urea nitrogen [Mass/Vol] 19 mg/dL Normal 4-19 [facility] Comment on above: Performed By: #### L 500.2500, L503.7505, L501.4021, L300.8000, L100.0100 #### [facility] Laboratory [address] [place], [address] Consultation - Cardiologyon 05-21-2025 Consultation - Cardiology [facility] Medical Records Department [address] [place] [address] Consultation - Cardiology 05/21/25 1036 MR#: [id number] Acct: [id number] Name: EUGENIE MATA Rep #: [id number] : 1940 84 From: Luis Dominguez MD PCP: Dr. Liane Stephenson, DO Status:ADM IN Location: [place] [address] Assessment Plan Assessment/Plan (1) NSTEMI, initial episode of care: PLAN: Patient's ECG is consistent with a right bundle branch block left anterior fascicular block. She is in sinus bradycardia at 56 bpm there is no evolution over the last 24 hours. The patient does have enzymes 105???170. Preliminarily her echocardiogram shows normal LV function. The patient does have dementia. I did discuss treatment options including invasive evaluation with the patient and her family members. The patient does have arthritic changes in her left shoulder which is where the symptoms started. It is difficult to tell with accuracy how symptomatic the patient really is. The family noted that they were so uncertain they waited 2 to 3 days to have her evaluated. I would recommend that we try to treat this medically. We will add long-acting nitrates to control her blood pressure utilize a beta-juan diego as tolerated continue the antiplatelet therapy with clopidogrel and aggressive statin therapy with atorvastatin. Would recommend changing the metoprolol to tartrate to 12.5 mg daily starting tomorrow morning. Will hold it for heart rate less than 55. (2) Dementia: QUALIFIERS: Dementia type: unspecified type Dementia severity: unspecified severity Dementia behavioral or psychological symptom: with other behavioral disturbance Qualified Code(s): F03.918 - Unspecified dementia, unspecified severity, with other behavioral disturbance PLAN: Patient's dementia is being evaluated and treated by the primary service. (3) HTN (hypertension): QUALIFIERS: Hypertension type: primary hypertension Qualified Code(s): I10 - Essential (primary) hypertension PLAN: Blood pressure appears to be adequately controlled on her current medical therapy. (4) HLD (hyperlipidemia): QUALIFIERS: Hyperlipidemia type: pure hypercholesterolemia Qualified Code(s): E78.00 - Pure hypercholesterolemia, unspecified PLAN: Lipids are well-controlled with a total cholesterol of 136, LDL 61, and HDL 53, with triglycerides of 112 on her current atorvastatin 40 mg daily. PLAN: Plan 1. Add Imdur 30 mg every morning starting today. 2. Will change metoprolol to tartrate to 12.5 mg daily hold for heart rate less than 55. 3. Continue Plavix as antiplatelet therapy. 4. Will slowly progress activities as tolerated. 5. Discontinue IV heparin. 6. If unable to control symptoms that appear to be ischemic in etiology we will have to consider proceeding with left heart catheterization. Stenting will be an issue given she is intolerant of aspirin. HPI Consult Data Date of Consult: 05/21/25 HPI Narrative Reason for Consultation: Chest pain HPI Narrative: EUGENIE MATA, is a 84 F who presents with a 2 to 3-day history of left shoulder and left chest discomfort radiating around under her left breast. The patient also notes tenderness to palpation in her anterior left chest as well as bilateral aspect of her chest wall. She does note that the symptoms resolve when she sits and is still in the recur when she is up and moving about. Patient's troponins were 105/153/170. ECG shows sinus bradycardia at 56 bpm with a right bundle branch block and left anterior fascicular block on 05/20. There was no change on the serial ECG done 05/21. Her telemetry now shows normal sinus rhythm at 61 bpm. Currently the patient is pain-free. An echocardiogram was being performed which primarily revealed normal LV function. The patient also has a history of dementia and is on medical therapy. Patient has a history of hyperlipidemia hypertension chronic kidney disease but her GFR is 62 on admission. The patient carries a history of aspirin allergy of an unknown event. The patient is not allergic to iodine. Patient's blood pressure has been treated with hydrochlorothiazide and she is on clopidogrel in her home environment as well. She also is tolerating atorvastatin 40 mg daily in her home environment. Triglycerides were 112, total cholesterol 136, LDL 61, and HDL 53. Her BNP was normal on admission at 89 for her age. The patient and 3 family members were present during the interview and examination. They were all in agreement with her dementia issues. [facility] Medical History (Updated 05/21/25 @ 10:[address] Luis Dominguez MD) HLD (hyperlipidemia) HTN (hypertension) Dementia Gout Overweight Chronic kidney disease (CKD), stage III (moderate) Stenosis of retinal artery Macular degeneration Home Medications ???Medication ???Instructions ???Recorded ???Last Taken ???Type hydrochlorothiazide 2 (more content not included)... Normal [facility] Echo Completeon 05-21-2025 Echo Complete [facility] Cardi[facility] [address] [place] [address] Echo Complete 05/21/25 1011 MR#: [id number] Acct: [id number] Name: EUGENIE MATA Rep #: [id number] : 1940 84 From: Tavo Wilson MD Attending Dr: Dr. [place] Cross MD Status: ADM IN Ordering Dr: Ignacia Parsons MD Date: 05/21/25 Location: U Sex: F C Admitted: 05/20/25 Reason For Study Reason For Study: NSTEMI Procedure This was a 2D Doppler, Color Flow transthoracic echocardiogram. Exam performed portable in patient room. Left Ventricle Normal LV size. Mild concentric left ventricular hypertrophy. The left ventricular ejection fraction is 65 %. Stage 1 diastolic dysfunction. Right Ventricle Normal right ventricle. Atria The left and right atria are normal. Mitral Valve Mild-Moderate (1-2+) posteriorly directed mitral valve insufficiency. Tricuspid Valve Trivial tricuspid valve insufficiency. Unable to estimate RV systolic pressure due to insufficient tricuspid regurgitant envelope. Aortic Valve Mild to moderate aortic valve calcification. Aortic valve sclerosis without stenosis. Pulmonic Valve The pulmonic valve is not well visualized. Great Vessels Normal sized aortic root. Pericardium/Pleural No pericardial effusion. MMode/2D Measurements Calculations LVIDd: 4.1 cm IVSd: 1.2 cm Ao root diam: 2.9 cm LVIDs: 2.7 cm LVPWd: 1.2 cm FS: 33.5 % LAV(MOD-bp): 23.1 ml LVAd ap4: 22.9 cm2 SV(MOD-sp4): 38.6 ml LAV(MOD-bp) Indexed: 15.0 ml/m2 LVLd ap4: 7.4 cm SI(MOD-sp4): 25.0 ml/m2 LAV(MOD-sp2): 20.7 ml EDV(MOD-sp4): 59.3 ml LAV(MOD-sp4): 25.2 ml EDV(sp4-el): 60.0 ml LVAs ap4: 12.3 cm2 LVLs ap4: 6.1 cm ESV(MOD-sp4): 20.7 ml ESV(sp4-el): 21.0 ml EF(MOD-sp4): 65.1 % EF(sp4-el): 65.1 % SV(sp4-el): 39.0 ml LA A4 area: 11.4 cm2 LA dimension(2D): 3.2 cm RA A4 area: 9.7 cm2 Time Measurements MV dec time: 0.25 sec Doppler Measurements Calculations MV E max johana: 85.4 cm/sec Lat Peak E' Johana: 8.0 cm/sec Med Peak E' Johana: 7.3 cm/sec MV A max johana: 115.7 cm/sec E/E' lat: 10.7 E/E' med: 11.7 MV E/A: 0.74 MV V2 max: 134.4 cm/sec MV P1/2t max johana: 111.6 cm/sec Ao V2 max: 177.6 cm/sec MV max P.2 mmHg MV P1/2t: 78.2 msec Ao max P.6 mmHg MV V2 mean: 61.7 cm/sec Ao V2 mean: 115.5 cm/sec MV mean P.9 mmHg MV dec slope: 418.0 cm/sec2 Ao mean P.2 mmHg MV V2 VTI: 37.6 cm MVA(P1/2t): 2.8 cm2 Ao V2 VTI: 37.8 cm AV (velocity ratio): 0.60 LV V1 max: 99.3 cm/sec PA V2 max: 93.4 cm/sec LV V1 max P.9 mmHg LV V1 mean P.1 mmHg LV V1 mean: 68.4 cm/sec LV V1 VTI: 22.5 cm ECHO/Echo Complete Interpretation Summary Mild concentric left ventricular hypertrophy. The left ventricular ejection fraction is 65 %. Stage 1 diastolic dysfunction. Mild-Moderate (1-2+) posteriorly directed mitral valve insufficiency. Aortic valve sclerosis without stenosis. Ordering Physician: Ignacia Parsons Performed By: Norman Lockett RCS 05/21/25 1412 Date Tavo Wilson MD CC: Dr. Ignacia Parsons MD; Dr. [place] Cross MD; Dr. Liane Stephenson DO Date Dictated: 05/21/25 1011 Date Transcribed: 05/21/25 141 [employer] Research Associate: Signed Normal [facility] Echocardiogram study reportO rdered By: Tavo Wilson on 05-21-2025 Study report [facility] Cardiovascular Services [address] [place] [address] Echo Complete 05/21/25 1011 MR#: [id number] Acct: [id number] Name: EUGENIE MATA Rep #:[id number] : 1940 84 From: Tavo Wilson MD Attending Dr: Dr. [place] Cross MD Status: ADM IN Ordering Dr: Ignacia Parsons MD Date: 05/21/25 Location: [facility] Sex: F C Admitted: 05/20/25 Reason For Study Reason For Study: NSTEMI Procedure This was a 2D Doppler, Color Flow transthoracic echocardiogram. Exam performed portable in patient room. Left Ventricle Normal LV size. Mild concentric left ventricular hypertrophy. The left ventricular ejection fraction is 65 %. Stage 1 diastolic dysfunction. Right Ventricle Normal right ventricle. Atria The left and right atria are normal. Mitral Valve Mild-Moderate (1-2+) posteriorly directed mitral valve insufficiency. Tricuspid Valve Trivial tricuspid valve insufficiency. Unable to estimate RV systolic pressure due to insufficient tricuspid regurgitant envelope. Aortic Valve Mild to moderate aortic valve calcification. Aortic valve sclerosis without stenosis. Pulmonic Valve The pulmonic valve is not well visualized. Great Vessels Normal sized aortic root. Pericardium/Pleural No pericardial effusion. MMode/2D Measurements & Calculations LVIDd: 4.1 cm IVSd: 1.2 cm Ao root diam: 2.9 cm LVIDs: 2.7 cm LVPWd: 1.2 cm FS: 33.5 % LAV(MOD-bp): 23.1 ml LVAd ap4: 22.9 cm2 SV(MOD-sp4): 38.6 ml LAV(MOD-bp) Indexed: 15.0 ml/m2 LVLd ap4: 7.4 cm SI(MOD-sp4): 25.0 ml/m2 LAV(MOD-sp2): 20.7 ml EDV(MOD-sp4): 59.3 ml LAV(MOD-sp4): 25.2 ml EDV(sp4-el): 60.0 ml LVAs ap4: 12.3 cm2 LVLs ap4: 6.1 cm ESV(MOD-sp4): 20.7 ml ESV(sp4-el): 21.0 ml EF(MOD-sp4): 65.1 % EF(sp4-el): 65.1 % SV(sp4-el): 39.0 ml LA A4 area: 11.4 cm2 LA dimension(2D): 3.2 cm RA A4 area: 9.7 cm2 Time Measurements MV dec time: 0.25 sec Doppler Measurements & Calculations MV E max johana: 85.4 cm/sec Lat Peak E' Johana: 8.0 cm/sec Med Peak E' Johana: 7.3 cm/sec MV A max johana: 115.7 cm/sec E/E' lat: 10.7 E/E' med: 11.7 MV E/A: 0.74 MV V2 max: 134.4 cm/sec MV P1/2t max johana: 111.6 cm/sec Ao V2 max: 177.6 cm/sec MV max P.2 mmHg MV P1/2t: 78.2 msec Ao max P.6 mmHg MV V2 mean: 61.7 cm/sec Ao V2 mean: 115.5 cm/sec MV mean P.9 mmHg MV dec slope: 418.0 cm/sec2 Ao mean P.2 mmHg MV V2 VTI: 37.6 cm MVA(P1/2t): 2.8 cm2 Ao V2 VTI: 37.8 cm AV (velocity ratio): 0.60 LV V1 max: 99.3 cm/sec PA V2 max: 93.4 cm/sec LV V1 max P.9 mmHg LV V1 mean P.1 mmHg LV V1 mean: 68.4 cm/sec LV V1 VTI: 22.5 cm ECHO/Echo Complete Interpretation Summary Mild concentric left ventricular hypertrophy. The left ventricular ejection fraction is 65 %. Stage 1 diastolic dysfunction. Mild-Moderate (1-2+) posteriorly directed mitral valve insufficiency. Aortic valve sclerosis without stenosis. Ordering Physician: Ignacia Parsons Performed By: Norman Lockett RCS 05/21/25 1412 Date _ Tavo Wilson MD CC: Dr. Ignacia Parsons MD; Dr. [place] Cross MD; Dr. Liane Stephenson DO ~ Date Dictated: 05/21/25 1011 Date Transcribed: 05/21/251411 [employer] Research Associate: Signed [facility] Work Phone: Electrocardiogram reportOrde red By: Luis Dominguez on 05-21-2025 EKG study [facility] Cardi[facility] Services [address] [place] [address] 12 Lead EKG 05/20/25 1401 MR#: [id number] Acct: [id number] Name: EUGENIE MATA Rep #:[id number] : 1940 84 From: Luis au MD Attending Dr: Dr. [place] Cross MD Status: ADM IN Ordering Dr: Devin Piña DO Date: 05/20/25 Location: U Sex: F C Admitted: 05/20/25 Test Reason : CP Blood Pressure : */* mmHG Vent. Rate : 59 BPM Atrial Rate : 59 BPM P-R Int : 158 ms QRS Dur : 132 ms QT Int : 432 ms P-R-T Axes : 37 -50 43 degrees QTcB Int : 427 ms Sinus bradycardia with Premature atrial complexes with Aberrant conduction Right bundle branch block Left anterior fascicular block Bifascicular block Inferior infarct (cited on or before 07-Oct-2022) Abnormal ECG Confirmed by Luis Dominguez ([id number]), technical editor [address] ([id number]) on 05/21/2025 1:07:15 PM Referred By: Confirmed By: Luis Dominguez 05/21/25 1307 Date _ Luis Dominguez MD CC: Dr. [place] Cross MD; Dr. Liane Stephenson DO; Dr. Devin Piña DO ~ Signed [facility] Work Phone: EKG study [facility] Services [address] [place] [address] 12 Lead EKG 05/20/25 1917 MR#: [id number] Acct: [id number] Name: EUGENIE MATA Rep #:[id number] : 1940 84 From: Luis au MD Attending Dr: Dr. [place] Cross MD Status: ADM IN Ordering Dr: Devin Piña DO Date: 05/20/25 Location: U Sex: F C Admitted: 05/20/25 Test Reason : CP Blood Pressure : */* mmHG Vent. Rate : 56 BPM Atrial Rate : 56 BPM P-R Int : 184 ms QRS Dur : 148 ms QT Int : 480 ms P-R-T Axes : 41 -42 14 degrees QTcB Int : 463 ms Sinus bradycardia lafb Right bundle branch block Cannot rule out Inferior infarct , age undetermined Abnormal ECG Confirmed by Luis Dominguez ([id number]), technical editor [address] [facility] ([id number]) on 05/21/2025 1:07:38 PM Referred By: TA Confirmed By: Luis Dominguez 05/21/25 1307 Date _ Luis Dominguez MD CC: Dr. [place] Cross MD; Dr. Liane Stephenson DO; Dr. Devin Piña DO ~ Signed [facility] Work Phone: LDL calc ser/plasOrdered By: Ignacia Parsons on 05-21-2025 Cholesterol in LDL [Mass/Vol] 61 mg/dL [facility] Comment on above: Spafrjuged=681-776 m g/dL & Higher Fvtb=531 mg/dL or greater Laboratory - Chemistry and C hemistry - challengeOrdered By: Ignacia Parsons on 05-21-2025 AST [Catalytic activity/Vol] 23 U/L <32 [facility] Lipid Profileon 05-21-2025 CHOL:HDL 2.57 Normal [facility] Comment on above: Performed By: #### L 500.2500, L503.7505, L501.4021, L300.8000, L100.0100 #### [facility] Laboratory [address] [place], [place], [address] Cholesterol [Mass/Vol] 136 mg/dL Normal <=200 [facility] Comment on above: Result Comment: Chol esterol level, Desirable <200 mg/dL Borderline high cholesterol 200-239 mg/dL High cholesterol >=240 mg/dL Recommendations of the NCEP Adult Treatment Panel for the following risk-cutoff thresholds for the [place] population. Performed By: #### L 500.2500, L503.7505, L501.4021, L300.8000, L100.0100 #### [facility] Laboratory [address] [place], [address] Cholesterol in HDL [Mass/Vol] 53 mg/dL Normal [facility] Comment on above: Result Comment: Francoise onal Cholesterol Education Program (NCEP) guidelines: <40 mg/dL: Low HDL-cholesterol (major risk factor for CHD) >= 60 mg/dL: High HDL-cholesterol (negative risk factor for CHD) HDL-cholesterol is affected by a number of factors, e.g. smoking, exercise, hormones, sex and age. Performed By: #### L 500.2500, L503.7505, L501.4021, L300.8000, L100.0100 #### [facility] Laboratory [address] [place], [address] Cholesterol in LDL [Mass/Vol] 61 mg/dL Normal [facility] Comment on above: Result Comment: Bord fjpduc=593-852 mg/dL Higher Gldz=454 mg/dL or greater Performed By: #### L 500.2500, L503.7505, L501.4021, L300.8000, L100.0100 #### [facility] Laboratory [address] [place], [address] Cholesterol in VLDL [Mass/Vol] 22 mg/dL Normal 5-40 [facility] Comment on above: Performed By: #### L 500.2500, L503.7505, L501.4021, L300.8000, L100.0100 #### [facility] Laboratory [address] [place], [address] Triglyceride [Mass/Vol] 112 mg/dL Normal [facility] Comment on above: Result Comment: The drugs N-Acetylcysteine and Metamizole may falsely depress this assay. Normal range: <150 mg/dL Borderline High: 150-199 mg/dL High: 200-499 mg/dL Very High: >500 mg/dL Performed By: #### L 500.2500, L503.7505, L501.4021, L300.8000, L100.0100 #### [facility] Laboratory [address] [place], [address] Partial Thromboplast Timeon 05-21-2025 aPTT Coag (Bld) [Time] 76.7 s High 24.1-36.2 [facility] Comment on above: Order Comment: Comme nts: hep gtt Performed By: #### L 500.2500, L503.7505, L501.4021, L300.8000, L100.0100 #### [facility] Laboratory [address] [place], [place], [address] aPTT Coag (Bld) [Time] 194.8 s Invalid Interpretation Code 24.1-36.2 [facility] Comment on above: Result Comment: CRIT ICAL VALUE CALLED TO URMILA 05/21/25 Margarita Polk. RESULTS READ BACK BY SAME. Performed By: #### L 501.5200, L300.3900 #### [facility] Laboratory [address] [place], [place], [address] Screening total cholesterol/ high density lipoprotein (HDL) cholesterol ratioOrdered By: Ignacia Parsons on 05-21-2025 Cholesterol.total/Choles terol in HDL [Mass ratio] 2.57 {ratio} [facility] Serum globulin measurementOr dered By: Ignacia Parsons on 05-21-2025 Globulin (S) [Mass/Vol] 2.6 g/dL 2.2-4.2 [facility] Serum or plasma alanine núñez otransferase (ALT) measurementOrdered By: Ignacia Jaqueline on 05-21-2025 ALT [Catalytic activity/Vol] 8 U/L <35 [facility] Serum or plasma albumin osmel urement (mass/volume)Ordered By: Ignacia Parsons on 05-21-2025 Albumin [Mass/Vol] 3.6 g/dL 3.4-4.8 [facility] Serum or plasma albumin/glob ulin mass ratioOrdered By: Ignacia Parsons on 05-21-2025 Albumin/Globulin [Mass ratio] 1.4 {ratio} 0.9-2.4 [facility] Serum or plasma alkaline lee ann sphatase measurementOrdered By: Ignacia Parsons on 05-21-2025 ALP [Catalytic activity/Vol] 57 U/L 35-104 [facility] Serum or plasma cholesterol in HDL measurement (mass/volume)Ordered By: Ignacia Parsons on 05-21-2025 Cholesterol in HDL [Mass/Vol] 53 mg/dL >40 [facility] Comment on above: National Cholesterol Education Program (NCEP) guidelines:<40 mg/dL: Low HDL-cholesterol (major risk factor for CHD)>= 60 mg/dL: High HDL-cholesterol (negative risk factor for CHD)HDL-cholesterol is affected by a number of factors, e.g. smoking, exercise, hormones, sex and age. Serum or plasma cholesterol measurement (mass/volume)Ordered By: Ignacia Parsons on 05-21-2025 Cholesterol [Mass/Vol] 136 mg/dL <201 [facility] Comment on above: Cholesterol level, D esirable <200 mg/dLBorderline high cholesterol 200-239 mg/dLHigh cholesterol >=240 mg/dLRecommendations of the NCEP Adult Treatment Panel for the following risk-cutoff thresholds for the [place] population. Total proteinOrdered By: Radhika Parsons on 05-21-2025 Protein [Mass/Vol] 6.2 g/dL 5.9-8.4 [facility] Triglycerides measurementOrd ered By: Ignacia Parsons on 05-21-2025 Triglyceride [Mass/Vol] 112 mg/dL <199 [facility] Comment on above: The drugs N-Acetylcy steine and Metamizole may falsely depress this assay. Normal range: <150 mg/dLBorderline High: 150-199 mg/dLHigh: 200-499 mg/dLVery High: >500 mg/dL 12 Lead EKGon 05-20-2025 12 Lead EKG [facility] [address] [place] [address] 12 Lead EKG 05/20/252026 MR#: [id number] Acct: [id number] Name: EUGENIE MATA Rep #: [id number] : 1940 84 From: Adelina Brice MD Attending Dr: Dr. [place] Cross MD Status: ADM IN Ordering Dr: Ignacia Parsons MD Date: 05/20/25 Location: U Sex: F C Admitted: 05/20/25 Test Reason : CP ADMISSION Blood Pressure : */* mmHG Vent. Rate : 59 BPM Atrial Rate : 59 BPM P-R Int : 200 ms QRS Dur : 134 ms QT Int : 462 ms P-R-T Axes : 58 -48 14 degrees QTcB Int : 457 ms Sinus bradycardia Left axis deviation Right bundle branch block Inferior infarct , age undetermined Abnormal ECG When compared with ECG of 20-May-2025 19:17, MANUAL COMPARISON REQUIRED DATA IS UNCONFIRMED Confirmed by MD KRYSTLE, ADELINA ([id number]), technical editor [address]LEMAN ([id number]) on 05/22/2025 10:57:50 AM Referred By: Confirmed By: ADELINA BRICE MD 05/22/25 105 Date Adelina Brice MD CC: Dr. Ignacia Parsons MD; Dr. Miller Cross MD; Dr. Liane Stephenson DO Signed Normal [facility] 12 Lead EKG [facility] [address] [place] [address] 12 Lead EKG 05/20/25 191 MR#: [id number] Acct: [id number] Name: EUGENIE MATA Rep #: [id number] : 1940 84 From: Luis Dominguez MD Attending Dr: Dr. Miller Cross MD Status: ADM IN Ordering Dr: Devin Piña DO Date: 05/20/25 Location: U Sex: F C Admitted: 05/20/25 Test Reason : CP Blood Pressure : */* mmHG Vent. Rate : 56 BPM Atrial Rate : 56 BPM P-R Int : 184 ms QRS Dur : 148 ms QT Int : 480 ms P-R-T Axes : 41 -42 14 degrees QTcB Int : 463 ms Sinus bradycardia lafb Right bundle branch block Cannot rule out Inferior infarct , age undetermined Abnormal ECG Confirmed by Luis Dominguez ([id number]), technical editor L[address] [facility]LEMAN ([id number]) on 05/21/2025 1:07:38 PM Referred By: TA Confirmed By: Luis Dominguez 05/21/251306 Date Luis Dominguez MD CC: Dr. Miller Cross MD; Dr. Liane Stephenson DO; Dr. Devin Piña DO Signed Normal [facility] 12 Lead EKG [facility] [address] [place] [address] 12 Lead EKG 05/20/25 1401 MR#: [id number] Acct: [id number] Name: EUGENIE MATA Rep #: [id number] : 1940 84 From: Luis Dominguez MD Attending Dr: Dr. Miller Cross MD Status: ADM IN Ordering Dr: Devin Piña DO Date: 05/20/25 Location: [facility] Sex: F C Admitted: 05/20/25 Test Reason : CP Blood Pressure : */* mmHG Vent. Rate : 59 BPM Atrial Rate : 59 BPM P-R Int : 158 ms QRS Dur : 132 ms QT Int : 432 ms P-R-T Axes : 37 -50 43 degrees QTcB Int : 427 ms Sinus bradycardia with Premature atrial complexes with Aberrant conduction Right bundle branch block Left anterior fascicular block Bifascicular block Inferior infarct (cited on or before 07-Oct-2022) Abnormal ECG Confirmed by Luis Dominguez ([id number]), technical editor [address] [facility]MAN ([id number]) on 05/21/2025 1:07:15 PM Referred By: Confirmed By: Luis Dominguez 05/21/251306 Date Luis Dominguez MD CC: Dr. Miller Cross MD; Dr. Liane Stephenson DO; Dr. Devin Piña DO Signed [facility] Absolute lymphocyte countOrd ered By: Devin Piña on 05-20-2025 Lymphocytes Auto (Unsp spec) [#/Vol] 2.84 10*3/uL 0.83-4.51 [facility] Absolute neutrophil countOrd ered By: Devin Piña on 05-20-2025 Neutrophils (Bld) [#/Vol] 6.0 10*3/uL 2.0-7.7 [facility] Activated partial thrombopla stin time (aPTT) in platelet poor plasma by coagulation aOrdered By: Devin Piña on 05-20-2025 aPTT Coag (PPP) [Time] 27.6 s 24.1-36.2 [facility] Anion gap in Serum or Plasma Ordered By: Devin Piña on 05-20-2025 Anion gap [Moles/Vol] 13 mmol/L 5-15 [facility] Automated lymphocyte count a s percentage of total leukocytesOrdered By: Devin Piña on 05-20-2025 Lymphocytes/100 WBC Auto (Unsp spec) 28.8 % 19- [facility] BUN/creatinine ratioOrdered By: Devin Piña on 05-20-2025 Urea nitrogen/Creatinine [Mass ratio] 16.6 mg/mg 10- [facility] Basic Metabolic Profile (BMP )on 05-20-2025 BUN/CRE 16.6 RATIO Normal - [facility] Comment on above: Performed By: #### L 500.2500, L503.7505, L501.4021, L300.8000, L100.0100 #### [facility] Laboratory [address] [place], [address] Calcium [Mass/Vol] 9.5 mg/dL Normal 7.6-11.0 [facility] Comment on above: Performed By: #### L 500.2500, L503.7505, L501.4021, L300.8000, L100.0100 #### [facility] Laboratory [address] [place], [address] Chloride [Moles/Vol] 97 mmol/L Low 98-108 [facility] Comment on above: Performed By: #### L 500.2500, L503.7505, L501.4021, L300.8000, L100.0100 #### [facility] Laboratory [address] [place], [address] CO2 [Moles/Vol] 24.3 mmol/L Normal 21.0-32.0 [facility] Comment on above: Performed By: #### L 500.2500, L503.7505, L501.4021, L300.8000, L100.0100 #### [facility] Laboratory [address] [place], [address] Creatinine [Mass/Vol] 1.09 mg/dL Normal 0.70-1.20 [facility] Comment on above: Performed By: #### L 500.2500, L503.7505, L501.4021, L300.8000, L100.0100 #### [facility] Laboratory [address] [place], [address] ECRCL 32.48 ml/min Low 50-250 [facility] Comment on above: Performed By: #### L 500.2500, L503.7505, L501.4021, L300.8000, L100.0100 #### [facility] Laboratory [address] [place], [address] GAP 13 Normal 5-15 [facility] Comment on above: Performed By: #### L 500.2500, L503.7505, L501.4021, L300.8000, L100.0100 #### [facility] Laboratory [address] [place], [address] GFR/1.73 sq M.predicted among non-blacks MDRD (S/P/Bld) [Vol rate/Area] 50 mL/min/{1.73_m2} Low >60 [facility] Comment on above: Result Comment: mL/m in/1.73m2 CKD-EPI Creatinine Equation (2020) Performed By: #### L 500.2500, L503.7505, L501.4021, L300.8000, L100.0100 #### [facility] Laboratory [address] [place], [address] Glucose [Mass/Vol] 130 mg/dL High 70-99 [facility] Comment on above: Performed By: #### L 500.2500, L503.7505, L501.4021, L300.8000, L100.0100 #### [facility] Laboratory [address] [place], [address] Potassium [Moles/Vol] 3.4 mmol/L Normal 3.3-5.1 [facility] Comment on above: Performed By: #### L 500.2500, L503.7505, L501.4021, L300.8000, L100.0100 #### [facility] Laboratory [address] [place], [address] Sodium [Moles/Vol] 134 mmol/L Normal 133-145 [facility] Comment on above: Performed By: #### L 500.2500, L503.7505, L501.4021, L300.8000, L100.0100 #### [facility] Laboratory [address] [place], [address] Urea nitrogen [Mass/Vol] 18 mg/dL Normal 4-19 [facility] Comment on above: Performed By: #### L 500.2500, L503.7505, L501.4021, L300.8000, L100.0100 #### [facility] Laboratory [address] [place], [address] Basophil percentageOrdered B y: Devin Piña on 05-20-2025 Basophils/100 WBC (Bld) 0.5 % 0-1 [facility] CBC W/Diff, Automatedon 05-08 Absolute Lymph 2.84 X10 3/uL Normal 0.83-4.51 [facility] Comment on above: Performed By: #### L 500.2500, L503.7505, L501.4021, L300.8000, L100.0100 #### [facility] Laboratory [address] [place], [address] Absolute Neut 6.0 X10 3/uL Normal 2.0-7.7 [facility] Comment on above: Performed By: #### L 500.2500, L503.7505, L501.4021, L300.8000, L100.0100 #### [facility] Laboratory [address] [place], [address] Basophils/100 WBC (Bld) 0.5 % Normal 0-1 [facility] Comment on above: Performed By: #### L 500.2500, L503.7505, L501.4021, L300.8000, L100.0100 #### [facility] Laboratory [address] [place], [address] Eosinophils/100 WBC (Bld) 2.4 % Normal 0-5 [facility] Comment on above: Performed By: #### L 500.2500, L503.7505, L501.4021, L300.8000, L100.0100 #### [facility] Laboratory [address] [place], [address] Erythrocyte distribution width (RBC) [Ratio] 12.8 % Normal 11.6-14.6 [facility] Comment on above: Performed By: #### L 500.2500, L503.7505, L501.4021, L300.8000, L100.0100 #### [facility] Laboratory [address] [place], [address] Hematocrit (Bld) [Volume fraction] 40.0 % Normal 37-47 [facility] Comment on above: Performed By: #### L 500.2500, L503.7505, L501.4021, L300.8000, L100.0100 #### [facility] Laboratory [address] [place], [address] Hemoglobin (Bld) [Mass/Vol] 13.3 g/dL Normal 12.0-15.0 [facility] Comment on above: Performed By: #### L 500.2500, L503.7505, L501.4021, L300.8000, L100.0100 #### [facility] Laboratory [address] [place], [address] IG% 0.300 Normal 0.0-0.9 [facility] Comment on above: Result Comment: IG% - Immature Granulocytes (promyelocytes, myelocytes and metamyelocytes) > 1% indicates that a LEFT SHIFT is Present. Performed By: #### L 500.2500, L503.7505, L501.4021, L300.8000, L100.0100 #### [facility] Laboratory [address] [place], [address] Lymphocytes/100 WBC (Bld) 28.8 % Normal 19-41 [facility] Comment on above: Performed By: #### L 500.2500, L503.7505, L501.4021, L300.8000, L100.0100 #### [facility] Laboratory [address] [place], [address] MCH (RBC) [Entitic mass] 30.9 pg Normal 27.0-32.0 [facility] Comment on above: Performed By: #### L 500.2500, L503.7505, L501.4021, L300.8000, L100.0100 #### [facility] Laboratory [address] [place], [address] MCHC (RBC) [Mass/Vol] 33.3 g/dL Normal 32-36 [facility] Comment on above: Performed By: #### L 500.2500, L503.7505, L501.4021, L300.8000, L100.0100 #### [facility] Laboratory [address] [place], [address] MCV (RBC) [Entitic vol] 93.0 fL Normal 81-99 [facility] Comment on above: Performed By: #### L 500.2500, L503.7505, L501.4021, L300.8000, L100.0100 #### [facility] Laboratory [address] [place], [address] Monocytes/100 WBC (Bld) 7.2 % Normal 0-10 [facility] Comment on above: Performed By: #### L 500.2500, L503.7505, L501.4021, L300.8000, L100.0100 #### [facility] Laboratory [address] [place], [address] Neutrophils/100 WBC (Bld) 60.8 % Normal 47-70 [facility] Comment on above: Performed By: #### L 500.2500, L503.7505, L501.4021, L300.8000, L100.0100 #### [facility] Laboratory [address] [place], [address] Nucleated RBC (Bld) [#/Vol] 0 10*3/uL Normal 0-5 [facility] Comment on above: Performed By: #### L 500.2500, L503.7505, L501.4021, L300.8000, L100.0100 #### [facility] Laboratory [address] [place], [address] Platelet mean volume (Bld) [Entitic vol] 10.4 fL Normal 6.2-12.0 [facility] Comment on above: Performed By: #### L 500.2500, L503.7505, L501.4021, L300.8000, L100.0100 #### [facility] Laboratory [address] [place], [address] Platelets (Bld) [#/Vol] 262 10*3/uL Normal 150-450 [facility] Comment on above: Performed By: #### L 500.2500, L503.7505, L501.4021, L300.8000, L100.0100 #### [facility] Laboratory [address] [place], [address] RBC (Bld) [#/Vol] 4.30 10*6/uL Normal 4.2-5.4 [facility] Comment on above: Performed By: #### L 500.2500, L503.7505, L501.4021, L300.8000, L100.0100 #### [facility] Laboratory [address] [place], [address] RDW SD 43.8 fl Normal 35.1-43.9 [facility] Comment on above: Performed By: #### L 500.2500, L503.7505, L501.4021, L300.8000, L100.0100 #### [facility] Laboratory [address] [place], [address] WBC (Bld) [#/Vol] 9.9 10*3/uL Normal 4.4-11.0 [facility] Comment on above: Performed By: #### L 500.2500, L503.7505, L501.4021, L300.8000, L100.0100 #### [facility] Laboratory [address] [place], [address] Carbon dioxide, total [Moles /volume] in Central venous bloodOrdered By: Devin Piña on 05-20-2025 CO2 [Moles/Vol] 24.3 mmol/L 21.0-32.0 [facility] Chest 1 View (Portable)on Chest 1 View (Portable) [facility] Imaging Services [address] [place] [address] Chest 1 View (Portable) MR#: [id number] Acct: [id number] Name: EUGENIE MATA Rep #: [id number] : 1940 F 84 From: Karen Little PCP: Dr. Liane Stephenson DO Status: REG ER Study: Chest 1 View (Portable) Date of Exam: 05/20/25 Exam# [id number] Ordering Dr: Devin Piña DO PROCEDURE: CHEST 1 VIEW (PORTABLE) 05/20/2025 REASON FOR EXAM: CHEST PAIN TECHNIQUE: Frontal view of the chest. COMPARISON: 10/07/2022 FINDINGS: No focal consolidation. No pleural effusion or pneumothorax. Cardiac silhouette is within normal limits. Calcified aortic arch. Neurostimulator device noted. RAD/Chest 1 View (Portable) IMPRESSION: No focal consolidations. Reading Location: [facility] CC: Dr. Liane Stephenson DO; Dr. Devin Piña DO [employer] Research Associate: Signed Normal [facility] Chloride assayOrdered By: Veronica Piña on 05-20-2025 Chloride [Moles/Vol] 97 mmol/L Low 98-108 [facility] D-Dimer Quantitative (DVT/PE )on 05-20-2025 D-DIMER QUANT 0.27 FEU/ug/m Normal 0.27-0.49 [facility] Comment on above: Result Comment: NORM AL D-Dimer level (<0.50) indicates no DVT or PE. Performed By: #### L 500.2500, L503.7505, L501.4021, L300.8000, L100.0100 #### [facility] Laboratory [address] [facility] [place], [address] Emergency Department Summary on 05-20-2025 Emergency Department Summary [facility] Medical Records Department [address] [place] [address] Emergency Department Summary 05/20/25 MR#: [id number] Acct: [id number] Name: EUGENIE MATA Rep #: [id number] : 1940 84 From: Devin Piña DO PCP: Dr. Liane Stephenson DO Status:ADM IN Location: [address] History of Present Illness Chief Complaint: Chest Pain PFSH PFSH Medical History (Updated 05/20/25 @ 17:[address] Ignacia Parsons MD) Dementia Gout Overweight Chronic kidney disease (CKD), stage III (moderate) Stenosis of retinal artery Macular degeneration HLD (hyperlipidemia) HTN (hypertension) Home Medications ???Medication ???Instructions ???Recorded ???Last Taken ???Type hydrochlorothiazide 25 mg tablet 12.5 mg PO DAILY diuretic 12/17/15 10/06/22 History atorvastatin 40 mg tablet 40 mg PO QHS CHOLESTEROL 10/07/22 10/06/22 History clopidogrel 75 mg tablet 75 mg PO DAILY BLOOD THINNER 10/0710/06/22 History ursodiol 250 mg tablet 250 mg PO BID #60 tabs 10/09/22 Un known Rx allopurinol 100 mg tablet 100 mg PO DAILY 05/20/25 Unknown H istory memantine 10 mg tablet 10 mg PO BID 05/20/25 Unknown Hist ory trandolapril 4 mg tablet 4 mg PO DAILY 05/20/25 Unknown His tory Allergy/AdvReac Type Severity Reaction Status Date / Time aspirin AdvReac Unknown Verified 05/20/25 13:52 Family History Father Myocardial infarction Brother Myocardial infarction CVA (cerebral vascular accident) Mother Heart disease Surgical History H/O: hysterectomy History of knee replacement procedure of left knee History of spinal fusion Hx of cholecystectomy Social History household members: spouse Smoking Status: Never smoker alcohol intake: never substance use type: does not use EXAM Physical Exam Const Vital Signs: 05/20/25 13:50 05/20/25 14:30 05/20/25 14:45 Temperature 97.8 F Temperature Source Oral Pulse Rate 72 59 L 61 Respiratory Rate 18 17 19 H Blood Pressure 181/99 H 137/48 H 100/65 Blood Pressure Mean 126 65 76 Pulse Ox 98 100 98 Oxygen Delivery Method Room Air 05/20/25 14:56 05/20/25 15:26 05/20/25 15:35 Temperature Temperature Source Pulse Rate 60 Respiratory Rate 17 23 H Blood Pressure 107/78 113/75 Blood Pressure Mean 86 83 Pulse Ox 100 100 Oxygen Delivery Method Room Air 05/20/25 15:40 05/20/25 15:45 05/20/25 15:50 Temperature Temperature Source Pulse Rate 60 59 L 61 Respiratory Rate 16 17 21 H Blood Pressure 105/60 108/60 102/54 L Blood Pressure Mean 74 75 70 Pulse Ox 95 98 99 Oxygen Delivery Method 05/20/25 16:00 05/20/25 16:10 05/20/25 16:15 Temperature Temperature Source Pulse Rate 55 L 54 L 55 L Respiratory Rate 20 H 15 17 Blood Pressure 115/57 L 115/57 L 116/58 L Blood Pressure Mean 76 76 75 Pulse Ox 100 100 99 Oxygen Delivery Method Room Air 05/20/25 16:20 05/20/25 16:25 05/20/25 16:30 Temperature Temperature Source Pulse Rate 54 L 55 L 55 L Respiratory Rate 14 17 24 H Blood Pressure 118/59 L 97/76 112/63 Blood Pressure Mean 75 83 71 Pulse Ox 100 100 100 Oxygen Delivery Method 05/20/25 16:35 05/20/25 16:40 05/20/25 16:45 Temperature Temperature Source Pulse Rate 55 L 56 L 54 L Respiratory Rate 24 H 18 19 H Blood Pressure 109/95 H 107/64 110/59 L Blood Pressure Mean 102 78 74 Pulse Ox 100 100 100 Oxygen Delivery Method 05/20/25 16:50 05/20/25 16:55 05/20/25 17:00 Temperature Temperature Source Pulse Rate 55 L 55 L Respiratory Rate 18 19 H Blood Pressure 109/60 110/56 L 110/73 Blood Pressure Mean 75 71 84 Pulse Ox 98 99 99 Oxygen Delivery Method 05/20/25 17:05 05/20/25 17:26 Temperature 98.2 F Temperature Source Pulse Rate 59 L 59 L Respiratory Rate 27 H 23 H Blood Pressure 113/70 122/86 H Blood Pressure Mean 75 98 Pulse Ox 100 100 Oxygen Delivery Method MDM MDM MDM Narrative Medical decision making narrative: HISTORY OF PRESENT ILLNESS: Chief complaint: Dizziness, chest pain 84-year-old female history of hyperlipidemia, hypertension, presents with chest pain. She notes Left-sided chest pain that began this morning approximate 8 AM approximately 5 hours prior to arrival. She also notes some dizziness and lightheadedness as well. Pain is not exertional. Is not ripping or tearing. The patient denies recent surgery in the last 4 weeks or immobilization in the last 3 days, denies previous diagnosis of DVT or PE, hemoptysis, unilateral leg (more content not included)... Normal [facility] Eosinophil percentageOrdered By: Devin Piña on 05-20-2025 Eosinophils/100 WBC (Bld) 2.4 % 0-5 [facility] Erythrocyte distribution wid th ratioOrdered By: Devin Piña on 05-20-2025 Erythrocyte distribution width (RBC) [Ratio] 12.8 % 11.6-14.6 [facility] Erythrocyte distribution wid th standard deviationOrdered By: Devin Piña on 05-20-2025 Erythrocyte distribution width (RBC) [Ratio] 43.8 fl 35.1-43.9 [facility] Glomerular filtration rate ( GFR) estimation/1.73 sq m using serum, plasma, or whole bOrdered By: Devin Piña on 05-20-2025 GFR/1.73 sq M.predicted among non-blacks MDRD (S/P/Bld) [Vol rate/Area] 50 mL/min/{1.73_m2} Low >60 [facility] Comment on above: mL/min/1.73m2 CKD-EP I Creatinine Equation (2020) H AND P Exam - [facility] 05-20-2025 H&P Exam - Hospitalist [facility] Medical Records Department [address] [place] [address] H P Exam - Hospitalist 05/20/25 1726 MR#: [id number] Acct: [id number] Name: EUGENIE MATA [employer] Rep #: [id number] : 1940 84 From: Ignacia Parsons MD PCP: Dr. Liane Stephenson, DO Status:ADM IN Location: [facility] [id number] HPI - General General Date of Admission: 05/20/25 Date of Service: 05/20/25 Chief Complaint: Chest pain HPI Narrative The patient is an 84 y/o F w/ PMHx: Gout, Dementia unclear type with unclear behavioral disturbance history, Hx prior retinal artery narrowing, Overweight, Macular degeneration, CKD stage III unclear subtype per GFR trending, HTN, HLD who presents to the [facility] ED on 05/20/2025 with history of onset of chest discomfort specifically left-sided beginning on day of presentation at approximately 8 AM with associated dizziness, lightheadedness occurring at rest and also with activity prompting eventual ED evaluation. Patient noted initially the chest discomfort actually started 2 to 3 days prior but was really primarily in the left shoulder and was intermittent not specifically worse with movement but then on day of presentation became more left-sided just underneath her left breast with the associated lightheadedness and dizziness but no associated dyspnea, diaphoresis, nausea or emesis. She notes at its worst it was rated 8 out of 10 in severity and described as an aching sensation. She notes currently in the ED her chest pain is since resolved. Her family does report that she would intermittently have lower blood pressures. 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 In the ED patient administered heparin bolus and maintained on heparin drip. [facility] Medical History Dementia Gout Overweight Chronic kidney disease (CKD), stage III (moderate) Stenosis of retinal artery Macular degeneration HLD (hyperlipidemia) HTN (hypertension) Home Medications ???Medication ???Instructions ???Recorded ???Last Taken ???Type hydrochlorothiazide 25 mg tablet 12.5 mg PO DAILY diuretic 12/17/15 10/06/22 History atorvastatin 40 mg tablet 40 mg PO QHS CHOLESTEROL 10/07/22 10/06/22 History clopidogrel 75 mg tablet 75 mg PO DAILY BLOOD THINNER 10/0710/06/22 History ursodiol 250 mg tablet 250 mg PO BID #60 tabs 10/09/22 Un known Rx allopurinol 100 mg tablet 100 mg PO DAILY 05/20/25 Unknown H istory memantine 10 mg tablet 10 mg PO BID 05/20/25 Unknown Hist ory trandolapril 4 mg tablet 4 mg PO DAILY 05/20/25 Unknown His tory Allergy/AdvReac Type Severity Reaction Status Date / Time aspirin AdvReac Unknown Verified 05/20/25 13:52 Family History Father Myocardial infarction Brother Myocardial infarction CVA (cerebral vascular accident) Mother Heart disease Surgical History H/O: hysterectomy History of knee replacement procedure of left knee History of spinal fusion Hx of cholecystectomy Social History household members: spouse Smoking Status: Never smoker alcohol intake: never substance use type: does not use ROS ROS Narrative Admission Review of Systems: CONSTITUTIONAL: No weight loss, fever, chills, + weakness or fatigue. HEENT: + Lightheadedness, dizziness. Eyes: No visual loss, blurred vision, double vision or yellow sclerae. Ears, Nose, Throat: No hearing loss, sneezing, congestion, runny nose or sore throat. SKIN: No rash or itching, lesions, wounds. CARDIOVASCULAR: + Chest pain, lightheadedness, dizziness. Palpitations, edema, orthopnea, syncopal events. RESPIRATORY: No shortness of breath, cough or sputum, wheezing, hemoptysis. GASTROINTESTINAL: No anorexia, nausea, vomiting or diarrhea, abdominal pain, melena, BRBPR. GENITOURINARY: No dysuria, frequency, urgency or retention. NEUROLOGICAL: + Lightheadedness, dizziness. No headache, syncope, paralysis, ataxia, numbness or tingling in the extremities, focal weakness, change in bowel or bladder control, seizure. MUSCULOSKELETAL: + muscle, back (more content not included)... Normal [facility] Hematocrit Auto (Bld) [Volum e fraction]Ordered By: Devin Piña on 05-20-2025 Hematocrit (Bld) [Volume fraction] 40.0 % 37-47 [facility] Hemoglobin measurementOrdere d By: Devin Piña on 05-20-2025 Hemoglobin (Bld) [Mass/Vol] 13.3 g/dL 12.0-15.0 [facility] Immature granulocytes/100 WB C Auto (Bld)Ordered By: Devin Piña on 05-20-2025 Immature granulocytes/100 WBC (Bld) 0.300 % 0.0-0.9 [facility] Comment on above: IG% - Immature Granu locytes (promyelocytes, myelocytes and metamyelocytes) > 1% indicates that a LEFT SHIFT is Present. International normalized rat io (INR) calculationOrdered By: Devin Piña on 05-20-2025 INR Coag (Bld) [Relative time] 0.9 {INR} [facility] L499.0042on 05-20-2025 Trop T High Sen 153 ng/L Invalid Interpretation Code <=14 [facility] Comment on above: Result Comment: Crit ical Result(s) Called ACOLE at: 1736 by: DOROTHYMAN??Results read back by same. Performed By: #### L 501.5200, L300.3900 #### [facility] Laboratory [address] [place], [address] L499.0043on 05-20-2025 Trop T High Sen 170 ng/L Invalid Interpretation Code <=14 [facility] Comment on above: Result Comment: Crit ical Result(s) Called SYLVIATER at: 1954 by: DOROTHYMAN??Results read back by same. Performed By: #### L 501.5200, L300.3900 #### [facility] Laboratory [address] [place], [address] L501.4021on 05-20-2025 Trop T High Sen 105 ng/L Invalid Interpretation Code <=14 [facility] Comment on above: Result Comment: Crit ical Result(s) Called AHAGGERTY at: 1620 by: BWORKMAN??Results read back by same. Performed By: #### L 500.2500, L503.7505, L501.4021, L300.8000, L100.0100 #### [facility] Laboratory [address] [place], [address] L503.7505on 05-20-2025 Natriuretic peptide B (Bld) [Mass/Vol] 942 pg/mL Normal <=1800 [facility] Comment on above: Result Comment: Hear t Failure Unlikely: < 300 pg/mL Heart Failure Likely < 50 Years: > 450 pg/mL 50-75 Years: > 900 pg/mL >75 Years: > 1800 pg/mL Performed By: #### L 500.2500, L503.7505, L501.4021, L300.8000, L100.0100 #### [facility] Laboratory [address] [place], [address] MCV (mean corpuscular volume ) determinationOrdered By: Devin Piña on 05-20-2025 MCV (RBC) [Entitic vol] 93.0 fL 81-99 [facility] Magnesiumon 05-20-2025 Magnesium [Mass/Vol] 1.9 mg/dL Normal 1.5-2.2 [facility] Comment on above: Order Comment: Comme nts: may add to ED labs Performed By: #### L 501.5200, L300.3900 #### [facility] Laboratory [address] [facility] [address] [place], [place], [id number] Magnesium measurement (mass/ volume)Ordered By: Ignacia Parsons on 05-20-2025 Magnesium (Unsp spec) [Mass/Vol] 1.9 mg/dL 1.5-2.2 [facility] Mean corpuscular hemoglobin (MCH) determinationOrdered By: Devin Piña on 05-20-2025 MCH (RBC) [Entitic mass] 30.9 pg 27.0-32.0 [facility] Mean corpuscular hemoglobin concentration (MCHC) determinationOrdered By: Devin Piña on 05-20-2025 MCHC (RBC) [Mass/Vol] 33.3 g/dL 32-36 [facility] Mean platelet volume determi nationOrdered By: Devin Piña on 05-20-2025 Platelet mean volume (Bld) [Entitic vol] 10.4 fL 6.2-12.0 [facility] Monocyte percentageOrdered B y: Devin Piña on 05-20-2025 Monocytes/100 WBC (Bld) 7.2 % 0-10 [facility] Natriuretic peptide.B prohor fracisco N-Terminal [Mass/volume] in Serum or PlasmaOrdered By: Devin Piña on 05-20-2025 Natriuretic peptide.B prohormone N-Terminal [Mass/Vol] 942 pg/mL <1800 [facility] Comment on above: Heart Failure Unlike ly: < 300 pg/mLHeart Failure Likely< 50 Years: > 450 pg/mL50-75 Years: > 900 pg/mL>75 Years: > 1800 pg/mL Neutrophil percentageOrdered By: Devin Piña on 05-20-2025 Neutrophils/100 WBC (Bld) 60.8 % 47-70 [facility] Nucleated red blood cell per centageOrdered By: Devin Piña on 05-20-2025 Nucleated RBC/100 WBC (Bld) [Ratio] 0 % 0-5 [facility] Partial Thromboplast Timeon 05-20-2025 aPTT Coag (Bld) [Time] 27.6 s Normal 24.1-36.2 [facility] Comment on above: Performed By: #### L 501.5200, L300.3900 #### [facility] Laboratory [address] [place], [address] Platelet countOrdered By: Veronica Piña on 05-20-2025 Platelets (Bld) [#/Vol] 262 10*3/uL 150-450 [facility] Potassium measurement (mass/ volume)Ordered By: Devin Piña on 05-20-2025 Potassium (Unsp spec) [Mass/Vol] 3.4 mmol/L 3.3-5.1 [facility] Prothrombin Time w/INRon INR Normal [facility] Comment on above: Result Comment: DUPL ICATE ORDER Performed By: #### L 501.5200, L300.3900 #### [facility] Laboratory [address] [place], [address] PROTIME Normal 11.7-14.9 [facility] Comment on above: Result Comment: DUPL ICATE ORDER Performed By: #### L 501.5200, L300.3900 #### [facility] Laboratory [address] [place], [address] INR Coag (PPP) [Relative time] 0.9 {INR} Normal [facility] Comment on above: Performed By: #### L 300.4310, L300.3900 #### [facility] Laboratory [address] [place], [address] PT Coag (PPP) [Time] 12.1 s Normal 11.7-14.9 [facility] Comment on above: Performed By: #### L 300.4310, L300.3900 #### [facility] Laboratory [address] [place], [address] Prothrombin timeOrdered By: Devin Piña on 05-20-2025 PT Coag (PPP) [Time] 12.1 s 11.7-14.9 [facility] RBC Auto (Bld) [#/Vol]Ordere d By: Devin Piña on 05-20-2025 RBC (Bld) [#/Vol] 4.30 10*6/uL 4.2-5.4 [facility] Serum creatinine measurement (mass/volume)Ordered By: Devin Piña on 05-20-2025 Creatinine [Mass/Vol] 1.09 mg/dL 0.70-1.20 [facility] Serum glucose measurement (m ass/volume)Ordered By: Devin Piña on 05-20-2025 Glucose [Mass/Vol] 130 mg/dL High 70-99 [facility] Serum or plasma calcium osmel urement (mass/volume)Ordered By: Devin Piña on 05-20-2025 Calcium [Mass/Vol] 9.5 mg/dL 7.6-11.0 [facility] Serum or plasma urea nitroge n measurement (mass/volume)Ordered By: Devin Piña on 05-20-2025 Urea nitrogen [Mass/Vol] 18 mg/dL 4- [facility] Shoulder min 2 Viewson 05-20 Shoulder min 2 Views [facility] [address] [place], [place] [address] Shoulder min 2 Views MR#: [id number] Acct: [id number] Name: EUGENIE MATA Rep #: [id number] : 1940 F 84 From: Al Louis MD PCP: Dr. Liane Stephenson DO Status: REG ER Study: Shoulder min 2 Views Date of Exam: 05/20/25 Exam# [id number] Ordering Dr: Devin Piña DO PROCEDURE: SHOULDER MIN 2 VIEWS 05/20/2025 REASON FOR EXAM: PAIN TECHNIQUE: SHOULDER MIN 2 VIEWS COMPARISON: None FINDINGS: No displaced fracture or traumatic malalignment. [id number] joint space narrowing and osteophyte formation at the acromioclavicular joint, mild at the glenohumeral joint. Bone mineral density is subjectively normal. Soft tissues are unremarkable. Spinal stimulator leads partially imaged. Visualized thorax is clear. RAD/Shoulder min 2 Views IMPRESSION: No acute osseous abnormality of the left shoulder. 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 Reading Location: [facility] CC: Dr. Liane Stephenson DO; Dr. Devin Piña DO [employer] Associate: Signed Normal [facility] Sodium levelOrdered By: Harvey Piña on 05-20-2025 Sodium [Moles/Vol] 134 mmol/L 133-145 [facility] Troponin T.cardiac [Mass/vol ume] in Serum or Plasma by High sensitivity methodOrdered By: Devin Piña on 05-20-2025 Troponin T.cardiac High sensitivity method [Mass/Vol] 170 ng/L High <14 [facility] Comment on above: Critical Result(s) C manuel KEARNS at: 1953 by: JUWAN Results read back by same. Troponin T.cardiac High sensitivity method [Mass/Vol] 153 ng/L High <14 [facility] Comment on above: Critical Result(s) C alled ACOLE at: 1736 by: JUWAN Results read back by same. Troponin T.cardiac High sensitivity method [Mass/Vol] 105 ng/L High <14 [facility] Comment on above: Critical Result(s) C alled AHAGGERTY at: 1620 by: JUWAN Results read back by same. White blood cell (WBC) count Ordered By: Devin Piña on 05-20-2025 WBC (Bld) [#/Vol] 9.9 10*3/uL 4.4-11.0 [facility] Absolute lymphocyte countOrd ered By: Liane Stephenson on 04-10-2025 Lymphocytes Auto (Unsp spec) [#/Vol] 2.21 10*3/uL 0.83-4.51 [facility] Absolute neutrophil countOrd ered By: Linae Stephenson on 04-10-2025 Neutrophils (Bld) [#/Vol] 4.4 10*3/uL 2.0-7.7 [facility] Anion gap in Serum or Plasma Ordered By: Liane Stephenson on 04-10-2025 Anion gap [Moles/Vol] 12 mmol/L 5-15 [facility] Automated lymphocyte count a s percentage of total leukocytesOrdered By: Liane Stephenson on 04-10-2025 Lymphocytes/100 WBC Auto (Unsp spec) 29.1 % 19-41 [facility] BUN/creatinine ratioOrdered By: Liane Stephenson on 04-10-2025 Urea nitrogen/Creatinine [Mass ratio] 19.2 mg/mg 10-20 [facility] Basophil percentageOrdered B y: Liane Stephenson on 04-10-2025 Basophils/100 WBC (Bld) 0.9 % 0-1 [facility] Bilirubin, totalOrdered By: Liane Stephenson on 04-10-2025 Bilirubin [Mass/Vol] 0.38 mg/dL 0.00-1.30 [facility] CBC W/Diff, Automatedon Absolute Lymph 2.21 X10 3/uL Normal 0.83-4.51 [facility] Comment on above: Performed By: #### L 501.5200, L300.3900 #### [facility] Laboratory [address] [place], [address] Absolute Neut 4.4 X10 3/uL Normal 2.0-7.7 [facility] Comment on above: Performed By: #### L 501.5200, L300.3900 #### [facility] Laboratory [address] [place], [address] Basophils/100 WBC (Bld) 0.9 % Normal 0-1 [facility] Comment on above: Performed By: #### L 501.5200, L300.3900 #### [facility] Laboratory [address] [place], [address] Eosinophils/100 WBC (Bld) 3.4 % Normal 0-5 [facility] Comment on above: Performed By: #### L 501.5200, L300.3900 #### [facility] Laboratory [address] [place], [address] Erythrocyte distribution width (RBC) [Ratio] 13.2 % Normal 11.6-14.6 [facility] Comment on above: Performed By: #### L 501.5200, L300.3900 #### [facility] Laboratory [address] [place], [address] Hematocrit (Bld) [Volume fraction] 40.5 % Normal 37-47 [facility] Comment on above: Performed By: #### L 501.5200, L300.3900 #### [facility] Laboratory [address] [place], [address] Hemoglobin (Bld) [Mass/Vol] 13.3 g/dL Normal 12.0-15.0 [facility] Comment on above: Performed By: #### L 501.5200, L300.3900 #### [facility] Laboratory [address] [place], [address] IG% 0.100 Normal 0.0-0.9 [facility] Comment on above: Result Comment: IG% - Immature Granulocytes (promyelocytes, myelocytes and metamyelocytes) > 1% indicates that a LEFT SHIFT is Present. Performed By: #### L 501.5200, L300.3900 #### [facility] Laboratory [address] [place], [address] Lymphocytes/100 WBC (Bld) 29.1 % Normal 19-41 [facility] Comment on above: Performed By: #### L 501.5200, L300.3900 #### [facility] Laboratory [address] [place], [address] MCH (RBC) [Entitic mass] 30.9 pg Normal 27.0-32.0 [facility] Comment on above: Performed By: #### L 501.5200, L300.3900 #### [facility] Laboratory [address] [place], [address] MCHC (RBC) [Mass/Vol] 32.8 g/dL Normal 32-36 [facility] Comment on above: Performed By: #### L 501.5200, L300.3900 #### [facility] Laboratory [address] [place], [address] MCV (RBC) [Entitic vol] 94.2 fL Normal 81-99 [facility] Comment on above: Performed By: #### L 501.5200, L300.3900 #### [facility] Laboratory [address] [place], [address] Monocytes/100 WBC (Bld) 8.6 % Normal 0-10 [facility] Comment on above: Performed By: #### L 501.5200, L300.3900 #### [facility] Laboratory [address] [place], [address] Neutrophils/100 WBC (Bld) 57.9 % Normal 47-70 [facility] Comment on above: Performed By: #### L 501.5200, L300.3900 #### [facility] Laboratory [address] [place], [address] Nucleated RBC (Bld) [#/Vol] 0 10*3/uL Normal 0-5 [facility] Comment on above: Performed By: #### L 501.5200, L300.3900 #### [facility] Laboratory [address] [place], [address] Platelet mean volume (Bld) [Entitic vol] 9.7 fL Normal 6.2-12.0 [facility] Comment on above: Performed By: #### L 501.5200, L300.3900 #### [facility] Laboratory [address] [place], [address] Platelets (Bld) [#/Vol] 316 10*3/uL Normal 150-450 [facility] Comment on above: Performed By: #### L 501.5200, L300.3900 #### [facility] Laboratory [address] [place], [address] RBC (Bld) [#/Vol] 4.30 10*6/uL Normal 4.2-5.4 [facility] Comment on above: Performed By: #### L 501.5200, L300.3900 #### [facility] Laboratory [address] [place], [address] RDW SD 45.0 fl High 35.1-43.9 [facility] Comment on above: Performed By: #### L 501.5200, L300.3900 #### [facility] [address] [place], [address] WBC (Bld) [#/Vol] 7.6 10*3/uL Normal 4.4-11.0 [facility] Comment on above: Performed By: #### L 501.5200, L300.3900 #### [facility] [address] [place], [address] Calculated very low density lipoprotein (VLDL) cholesterol measurementOrdered By: Liane Stephenson on 04-10-2025 Calculated very low density lipoprotein (VLDL) cholesterol measurement 19 mg/dL 5-40 [facility] Carbon dioxide, total [Moles /volume] in Central venous bloodOrdered By: Liane Stephenson on 04-10-2025 CO2 [Moles/Vol] 23.2 mmol/L 21.0-32.0 [facility] Chloride assayOrdered By: Radha Stephenson on 04-10-2025 Chloride [Moles/Vol] 105 mmol/L 98-108 [facility] Comprehensive Metabolic Prof ilon 04-10-2025 Albumin [Mass/Vol] 4.2 g/dL Normal 3.4-4.8 [facility] Comment on above: Performed By: #### L 501.5200, L300.3900 #### [facility] [address] [place], [address] Albumin/Globulin [Mass ratio] 1.5 {ratio} Normal 0.9-2.4 [facility] Comment on above: Performed By: #### L 501.5200, L300.3900 #### [facility] [address] [place], [address] ALK PHOS 61 U/L Normal 35-104 [facility] Comment on above: Performed By: #### L 501.5200, L300.3900 #### [facility] [address] [place], [address] ALT [Catalytic activity/Vol] 12 U/L Normal <=34 [facility] Comment on above: Performed By: #### L 501.5200, L300.3900 #### [facility] [address] [place], [address] AST [Catalytic activity/Vol] 24 U/L Normal <=31 [facility] Comment on above: Performed By: #### L 501.5200, L300.3900 #### [facility] [address] [place], [address] Bilirubin [Mass/Vol] 0.38 mg/dL Normal 0.00-1.30 [facility] Comment on above: Performed By: #### L 501.5200, L300.3900 #### [facility] [address] [place], [address] BUN/CRE 19.2 RATIO Normal 10-20 [facility] Comment on above: Performed By: #### L 501.5200, L300.3900 #### [facility] [address] [place], [address] Calcium [Mass/Vol] 9.0 mg/dL Normal 7.6-11.0 [facility] Comment on above: Performed By: #### L 501.5200, L300.3900 #### [facility] [address] [place], [address] Chloride [Moles/Vol] 105 mmol/L Normal 98-108 [facility] Comment on above: Performed By: #### L 501.5200, L300.3900 #### [facility] [address] [place], [address] CO2 [Moles/Vol] 23.2 mmol/L Normal 21.0-32.0 [facility] Comment on above: Performed By: #### L 501.5200, L300.3900 #### [facility] [address] [place], [address] Creatinine [Mass/Vol] 1.02 mg/dL Normal 0.70-1.20 [facility] Comment on above: Performed By: #### L 501.5200, L300.3900 #### [facility] [address] [place], [address] GAP 12 Normal 5-15 [facility] Comment on above: Performed By: #### L 501.5200, L300.3900 #### [facility] [address] [place], [address] GFR/1.73 sq M.predicted among non-blacks MDRD (S/P/Bld) [Vol rate/Area] 55 mL/min/{1.73_m2} Low >60 [facility] Comment on above: Result Comment: mL/m in/1.73m2 CKD-EPI Creatinine Equation (2020) Performed By: #### L 501.5200, L300.3900 #### [facility] [address] [place], [address] Globulin (S) [Mass/Vol] 2.9 g/dL Normal 2.2-4.2 [facility] Comment on above: Performed By: #### L 501.5200, L300.3900 #### [facility] [address] [place], [address] Glucose [Mass/Vol] 91 mg/dL Normal 70-99 [facility] Comment on above: Performed By: #### L 501.5200, L300.3900 #### [facility] [address] [place], [address] Potassium [Moles/Vol] 4.0 mmol/L Normal 3.3-5.1 [facility] Comment on above: Performed By: #### L 501.5200, L300.3900 #### [facility] [address] [place], [address] Sodium [Moles/Vol] 140 mmol/L Normal 133-145 [facility] Comment on above: Performed By: #### L 501.5200, L300.3900 #### [facility] [address] [place], [address] T PROT 7.1 g/dL Normal 5.9-8.4 [facility] Comment on above: Performed By: #### L 501.5200, L300.3900 #### [facility] [address] [place], [place], [id number] Urea nitrogen [Mass/Vol] 20 mg/dL High 4-19 [facility] Comment on above: Performed By: #### L 501.5200, L300.3900 #### [facility] [address] [place], [address] Eosinophil percentageOrdered By: Liane Stephenson on 04-10-2025 Eosinophils/100 WBC (Bld) 3.4 % 0-5 [facility] Erythrocyte distribution wid th ratioOrdered By: Liane Stephenson on 04-10-2025 Erythrocyte distribution width (RBC) [Ratio] 13.2 % 11.6-14.6 [facility] Erythrocyte distribution wid th standard deviationOrdered By: Liane Stephenson on 04-10-2025 Erythrocyte distribution width (RBC) [Ratio] 45.0 fl High 35.1-43.9 [facility] Glomerular filtration rate ( GFR) estimation/1.73 sq m using serum, plasma, or whole bOrdered By: Liane Stephenson on 04-10-2025 GFR/1.73 sq M.predicted among non-blacks MDRD (S/P/Bld) [Vol rate/Area] 55 mL/min/{1.73_m2} Low >60 [facility] Comment on above: mL/min/1.73m2 CKD-EP I Creatinine Equation (2020) Hematocrit Auto (Bld) [Volum e fraction]Ordered By: Liane Stephenson on 04-10-2025 Hematocrit (Bld) [Volume fraction] 40.5 % 37-47 [facility] Hemoglobin measurementOrdere d By: Liane Stephenson on 04-10-2025 Hemoglobin (Bld) [Mass/Vol] 13.3 g/dL 12.0-15.0 [facility] Immature granulocytes/100 WB C Auto (Bld)Ordered By: Liane Stephenson on 04-10-2025 Immature granulocytes/100 WBC (Bld) 0.100 % 0.0-0.9 [facility] Comment on above: IG% - Immature Granu locytes (promyelocytes, myelocytes and metamyelocytes) > 1% indicates that a LEFT SHIFT is Present. LDL calc ser/plasOrdered By: Liane Stephenson on 04-10-2025 Cholesterol in LDL [Mass/Vol] 89 mg/dL [facility] Comment on above: Gxscxfdkin=456-793 m g/dL & Higher Zpxy=657 mg/dL or greater Laboratory - Chemistry and C hemistry - challengeOrdered By: Liane Stephenson on 04-10-2025 AST [Catalytic activity/Vol] 24 U/L <32 [facility] Lipid Profileon 04-10-2025 CHOL:HDL 2.66 Normal [facility] Comment on above: Performed By: #### L 500.2500, L503.7505, L501.4021, L300.8000, L100.0100 #### [facility] [address] [place], [address] Cholesterol [Mass/Vol] 173 mg/dL Normal <=200 [facility] Comment on above: Result Comment: Chol esterol level, Desirable <200 mg/dL Borderline high cholesterol 200-239 mg/dL High cholesterol >=240 mg/dL Recommendations of the NCEP Adult Treatment Panel for the following risk-cutoff thresholds for the [place] population. Performed By: #### L 500.2500, L503.7505, L501.4021, L300.8000, L100.0100 #### [facility] [address] [place], [address] Cholesterol in HDL [Mass/Vol] 65 mg/dL Normal [facility] Comment on above: Result Comment: Francoise onal Cholesterol Education Program (NCEP) guidelines: <40 mg/dL: Low HDL-cholesterol (major risk factor for CHD) >= 60 mg/dL: High HDL-cholesterol (negative risk factor for CHD) HDL-cholesterol is affected by a number of factors, e.g. smoking, exercise, hormones, sex and age. Performed By: #### L 500.2500, L503.7505, L501.4021, L300.8000, L100.0100 #### [facility] [address] [place], [address] Cholesterol in LDL [Mass/Vol] 89 mg/dL Normal [facility] Comment on above: Result Comment: Bord fyxdvh=783-817 mg/dL Higher Rjtx=869 mg/dL or greater Performed By: #### L 500.2500, L503.7505, L501.4021, L300.8000, L100.0100 #### [facility] [address] [place], [address] Cholesterol in VLDL [Mass/Vol] 19 mg/dL Normal 5-40 [facility] Comment on above: Performed By: #### L 500.2500, L503.7505, L501.4021, L300.8000, L100.0100 #### [facility] Laboratory [address] [place], [address] Triglyceride [Mass/Vol] 95 mg/dL Normal [facility] Comment on above: Result Comment: The drugs N-Acetylcysteine and Metamizole may falsely depress this assay. Normal range: <150 mg/dL Borderline High: 150-199 mg/dL High: 200-499 mg/dL Very High: >500 mg/dL Performed By: #### L 500.2500, L503.7505, L501.4021, L300.8000, L100.0100 #### [facility] [address] [place], [address] MCV (mean corpuscular volume ) determinationOrdered By: Liane Stephenson on 04-10-2025 MCV (RBC) [Entitic vol] 94.2 fL 81-99 [facility] Mean corpuscular hemoglobin (MCH) determinationOrdered By: Liane Stephenson on 04-10-2025 MCH (RBC) [Entitic mass] 30.9 pg 27.0-32.0 [facility] Mean corpuscular hemoglobin concentration (MCHC) determinationOrdered By: Liane Stephenson on 04-10-2025 MCHC (RBC) [Mass/Vol] 32.8 g/dL 32-36 [facility] Mean platelet volume determi nationOrdered By: Liane Stephenson on 04-10-2025 Platelet mean volume (Bld) [Entitic vol] 9.7 fL 6.2-12.0 [facility] Monocyte percentageOrdered B y: Liane Stephenson on 04-10-2025 Monocytes/100 WBC (Bld) 8.6 % 0-10 [facility] Neutrophil percentageOrdered By: Liane Stephenson on 04-10-2025 Neutrophils/100 WBC (Bld) 57.9 % 47-70 [facility] Nucleated red blood cell per centageOrdered By: Liane Stephenson on 04-10-2025 Nucleated RBC/100 WBC (Bld) [Ratio] 0 % 0-5 [facility] Platelet countOrdered By: Radha Stephenson on 04-10-2025 Platelets (Bld) [#/Vol] 316 10*3/uL 150-450 [facility] Potassium measurement (mass/ volume)Ordered By: Liane Stephenson on 04-10-2025 Potassium (Unsp spec) [Mass/Vol] 4.0 mmol/L 3.3-5.1 [facility] RBC Auto (Bld) [#/Vol]Ordere d By: Liane Stephenson on 04-10-2025 RBC (Bld) [#/Vol] 4.30 10*6/uL 4.2-5.4 [facility] Screening total cholesterol/ high density lipoprotein (HDL) cholesterol ratioOrdered By: Liane Stephenson on 04-10-2025 Cholesterol.total/Choles terol in HDL [Mass ratio] 2.66 {ratio} [facility] Serum creatinine measurement (mass/volume)Ordered By: Liane Stephenson on 04-10-2025 Creatinine [Mass/Vol] 1.02 mg/dL 0.70-1.20 [facility] Serum globulin measurementOr dered By: Liane Stephenson on 04-10-2025 Globulin (S) [Mass/Vol] 2.9 g/dL 2.2-4.2 [facility] Serum glucose measurement (m ass/volume)Ordered By: Liane Stephenson on 04-10-2025 Glucose [Mass/Vol] 91 mg/dL 70-99 [facility] Serum or plasma alanine núñez otransferase (ALT) measurementOrdered By: Liane Stephenson on 04-10-2025 ALT [Catalytic activity/Vol] 12 U/L <35 [facility] Serum or plasma albumin osmel urement (mass/volume)Ordered By: Liane Stephenson on 04-10-2025 Albumin [Mass/Vol] 4.2 g/dL 3.4-4.8 [facility] Serum or plasma albumin/glob ulin mass ratioOrdered By: Liane Stephenson on 04-10-2025 Albumin/Globulin [Mass ratio] 1.5 {ratio} 0.9-2.4 [facility] Serum or plasma alkaline lee ann sphatase measurementOrdered By: Liane Stephenson on 04-10-2025 ALP [Catalytic activity/Vol] 61 U/L 35-104 [facility] Serum or plasma calcium osmel urement (mass/volume)Ordered By: Liane Stephenson on 04-10-2025 Calcium [Mass/Vol] 9.0 mg/dL 7.6-11.0 [facility] Serum or plasma cholesterol in HDL measurement (mass/volume)Ordered By: Liane Stephenson on 04-10-2025 Cholesterol in HDL [Mass/Vol] 65 mg/dL >40 [facility] Comment on above: National Cholesterol Education Program (NCEP) guidelines:<40 mg/dL: Low HDL-cholesterol (major risk factor for CHD)>= 60 mg/dL: High HDL-cholesterol (negative risk factor for CHD)HDL-cholesterol is affected by a number of factors, e.g. smoking, exercise, hormones, sex and age. Serum or plasma cholesterol measurement (mass/volume)Ordered By: Liane Stephenson on 04-10-2025 Cholesterol [Mass/Vol] 173 mg/dL <201 [facility] Comment on above: Cholesterol level, D esirable <200 mg/dLBorderline high cholesterol 200-239 mg/dLHigh cholesterol >=240 mg/dLRecommendations of the NCEP Adult Treatment Panel for the following risk-cutoff thresholds for the [place] population. Serum or plasma urea nitroge n measurement (mass/volume)Ordered By: Liane Stephenson on 04-10-2025 Urea nitrogen [Mass/Vol] 20 mg/dL High 4-19 [facility] Sodium levelOrdered By: Liane Stephenson on 04-10-2025 Sodium [Moles/Vol] 140 mmol/L 133-145 [facility] Total proteinOrdered By: Roula Stephenson on 04-10-2025 Protein [Mass/Vol] 7.1 g/dL 5.9-8.4 [facility] Triglycerides measurementOrd ered By: Liane Stephenson on 04-10-2025 Triglyceride [Mass/Vol] 95 mg/dL <199 [facility] Comment on above: The drugs N-Acetylcy steine and Metamizole may falsely depress this assay. Normal range: <150 mg/dLBorderline High: 150-199 mg/dLHigh: 200-499 mg/dLVery High: >500 mg/dL White blood cell (WBC) count Ordered By: Liane Stephenson on 04-10-2025 WBC (Bld) [#/Vol] 7.6 10*3/uL 4.4-11.0 [facility] HIP, UNI W/ Pelvis 2-3 Views on 06-19-2024 HIP, UNI W/ Pelvis 2-3 Views [facility] [address] [place] [address] HIP, UNI W/ Pelvis 2-3 Views MR#: [id number] Acct: [id number] Name: EUGENIE MATA Rep #: [id number] : 1940 F 83 From: Hair watkins MD PCP: Dr. Liane Stephenson, DO Status: REG CLI Study: HIP, UNI W/ Pelvis 2-3 Views Date of Exam: 10/31 Exam# [id number] Ordering [place]: [place] [id number] STUDY: X-RAY - PELVIS AND RIGHT HIP [...] Arash Cruz MD; Dr. Liane Stephenson DO [employer]: Signed Normal [facility] Absolute lymphocyte countOrd ered By: Carlene Arriaga on 12-08-2023 Lymphocytes Auto (Unsp spec) [#/Vol] 2.17 10*3/uL 0.83-4.51 [facility] Automated lymphocyte count a s percentage of total leukocytesOrdered By: Carlene Arriaga on 12-08-2023 Lymphocytes/100 WBC Auto (Unsp spec) 22.1 % 19-41 [facility] Basophil percentageOrdered B y: Carlene Arriaga on 12-08-2023 Basophils/100 WBC (Bld) 0.5 % 0-1 [facility] Bilirubin [Mass/Vol] 0.40 mg/dL 0.20-1.00 [facility] Comment on above: For patients on eltr ombopag therapy, use of Dimension [place] TBIL is not recommended. Chloride [Moles/Vol] 105 mmol/L 98-107 [facility] Eosinophils/100 WBC (Bld) 0.7 % 0-5 [facility] Glucose [Mass/Vol] 118 mg/dL 74-106 [facility] Comment on above: Fasting Glucose resu lt from 100 to 125 mg/dL suggests IMPAIRED HOMEOSTASIS per A.D.A. criteria. Hemoglobin (Bld) [Mass/Vol] 12.3 g/dL 12.0-15.0 [facility] Monocytes/100 WBC (Bld) 8.7 % 0-10 [facility] Neutrophils (Bld) [#/Vol] 6.6 10*3/uL 2.0-7.7 [facility] Neutrophils/100 WBC (Bld) 67.7 % 47-70 [facility] Potassium [Moles/Vol] 4.0 mmol/L 3.5-5.1 [facility] Protein [Mass/Vol] 6.9 g/dL 6.4-8.2 [facility] Sodium [Moles/Vol] 136 mmol/L 136-145 [facility] WBC (Bld) [#/Vol] 9.8 10*3/uL 4.4-11.0 [facility] Determination of erythrocyte mean corpuscular volume (MCV)Ordered By: Carlene Arriaga on 12-08-2023 MCV (RBC) [Entitic vol] 97.9 fL 81-99 [facility] Erythrocyte distribution wid th ratioOrdered By: Carlene Arriaga on 12-08-2023 Erythrocyte distribution width (RBC) [Ratio] 13.1 % 11.6-14.6 [facility] Erythrocyte distribution wid th standard deviationOrdered By: Carlene Arriaga on 12-08-2023 Erythrocyte distribution width (RBC) [Entitic vol] 47.0 fL 35.1-43.9 [facility] Erythrocyte sedimentation ra teOrdered By: Carlene Arriaga on 12-08-2023 ESR (Bld) [Velocity] 16 mm/h 0-30 [facility] Hematocrit Auto (Bld) [Volum e fraction]Ordered By: Carlene Arriaga on 12-08-2023 Hematocrit (Bld) [Volume fraction] 38.2 % 37-47 [facility] Immature granulocytes/100 WB C Auto (Bld)Ordered By: Carlene Arriaga on 12-08-2023 Immature granulocytes/100 WBC (Bld) 0.300 % 0.0-0.9 [facility] Comment on above: IG% - Immature Granu locytes (promyelocytes, myelocytes and metamyelocytes) > 1% indicates that a LEFT SHIFT is Present. Laboratory - Chemistry and C hemistry - challengeOrdered By: Carlene Arriaga on 12-08-2023 Albumin/Globulin [Mass ratio] 1.0 {ratio} 0.9-2.4 [facility] ALP [Catalytic activity/Vol] 54 U/L 45-117 [facility] ALT [Catalytic activity/Vol] 18 U/L 13-56 [facility] CO2 [Moles/Vol] 26.0 mmol/L 21.0-32.0 [facility] Globulin (S) [Mass/Vol] 3.5 g/dL 2.2-4.2 [facility] Urea nitrogen/Creatinine [Mass ratio] 20.6 mg/mg 10-20 [facility] Laboratory - Hematology and Cell countsOrdered By: Carlene Arriaga on 12-08-2023 MCH (RBC) [Entitic mass] 31.5 pg 27.0-32.0 [facility] MCHC (RBC) [Mass/Vol] 32.2 g/dL 32-36 [facility] Nucleated RBC/100 WBC (Bld) [Ratio] 0 % 0-5 [facility] Platelets (Bld) [#/Vol] 264 10*3/uL 150-450 [facility] No Panel InformationOrdered By: Carlene Arriaga on 12-08-2023 C-Reactive Protein Extended Range < 2.90 mg/L 0.0-3.0 [facility] Comment on above: C-Reactive Protein ( CRP) provides useful information for thediagnosis, therapy and monitoring of inflammatory processesand associated diseases. For the evaluation of Relative Riskfor Cardiovascular Disease, a High Sensitivity CRP (HSCRP)should be ordered. D-Dimer Quantitative (PE/DVT) < 0.27 FEU/ug/m 0.27-0.49 [facility] Comment on above: NORMAL D-Dimer level (<0.50) indicates no DVT or PE. Estimated GFR (MDRD) Amer 75 mL/min >60 [facility] Comment on above: GFR Calc Estimated GFR (MDRD) Non-Af Amer 62 mL/min >60 [facility] Comment on above: Non- GFR Calc Platelet mean volume [place]-Ec ker (Bld) [Entitic vol]Ordered By: Carlene Arriaga on 12-08-2023 Platelet mean volume (Bld) [Entitic vol] 10.1 fL 6.2-12.0 [facility] RBC Auto (Bld) [#/Vol]Ordere d By: Carlene Arriaga on 12-08-2023 RBC (Bld) [#/Vol] 3.90 10*6/uL 4.2-5.4 [facility] Serum or plasma calcium osmel urement (mass/volume)Ordered By: Carlene Arriaga on 12-08-2023 Calcium [Mass/Vol] 9.1 mg/dL 8.5-10.1 [facility] Serum or plasma creatinine m easurement (mass/volume)Ordered By: Carlene Arriaga on 12-08-2023 Creatinine [Mass/Vol] 0.92 mg/dL 0.55-1.02 [facility] Comment on above: The validity of the calculated GFR & GFRAA in patients over 70 years has not been determined. Clinical correlation is essential. Serum or plasma urea nitroge n measurement (mass/volume)Ordered By: Carlene Arriaga on 12-08-2023 Urea nitrogen [Mass/Vol] 19 mg/dL 7-18 [facility] Thin prep Papanicolaou smear with manual screeningOrdered By: Cheriton Bart on 12-08-2023 Thin prep Papanicolaou smear with manual screening 3.4 g/dL 3.2-5.0 [facility] Thin prep Papanicolaou smear with manual screening 15 U/L 15-37 [facility] Thin prep Papanicolaou smear with manual screening 5 5-15 [facility] Basophil percentageOrdered B y: Liane Stephenson on 03-24-2023 Bilirubin [Mass/Vol] 0.30 mg/dL 0.20-1.00 [facility] Comment on above: For patients on eltr ombopag therapy, use of Dimension [place] TBIL is not recommended. Chloride [Moles/Vol] 108 mmol/L 98-107 [facility] Glucose [Mass/Vol] 84 mg/dL 74-106 [facility] Potassium [Moles/Vol] 4.0 mmol/L 3.5-5.1 [facility] Protein [Mass/Vol] 7.3 g/dL 6.4-8.2 [facility] Sodium [Moles/Vol] 141 mmol/L 136-145 [facility] Laboratory - Chemistry and C hemistry - challengeOrdered By: Liane Stephenson on 03-24-2023 ALP [Catalytic activity/Vol] 76 U/L 45-117 [facility] ALT [Catalytic activity/Vol] 24 U/L 13-56 [facility] CO2 [Moles/Vol] 27.0 mmol/L 21.0-32.0 [facility] Globulin (S) [Mass/Vol] 3.9 g/dL 2.2-4.2 [facility] Urea nitrogen/Creatinine [Mass ratio] 23.3 mg/mg 10-20 [facility] No Panel InformationOrdered By: Liane Stephenson on 03-24-2023 Estimated GFR (MDRD) Amer 66 mL/min >60 [facility] Comment on above: GFR Calc Estimated GFR (MDRD) Non-Af Amer 55 mL/min >60 [facility] Comment on above: Non- GFR Calc Serum or plasma albumin osmel urement (mass/volume)Ordered By: Liane Stephenson on 03-24-2023 Albumin [Mass/Vol] 3.4 g/dL 3.2-5.0 [facility] Serum or plasma albumin/glob ulin mass ratioOrdered By: Liane Stephenson on 03-24-2023 Albumin/Globulin [Mass ratio] 0.9 {ratio} 0.9-2.4 [facility] Serum or plasma calcium osmel urement (mass/volume)Ordered By: Liane Stephenson on 03-24-2023 Calcium [Mass/Vol] 9.4 mg/dL 8.5-10.1 [facility] Serum or plasma creatinine m easurement (mass/volume)Ordered By: Liane Stephenson on 03-24-2023 Creatinine [Mass/Vol] 1.03 mg/dL 0.55-1.02 [facility] Comment on above: The validity of the calculated GFR & GFRAA in patients over 70 years has not been determined. Clinical correlation is essential. Serum or plasma urea nitroge n measurement (mass/volume)Ordered By: Liane Stephenson on 03-24-2023 Urea nitrogen [Mass/Vol] 24 mg/dL 7-18 [facility] Serum or plasma uric acid me asurement (mass/volume)Ordered By: Liane Stephenson on 03-24-2023 Urate [Mass/Vol] 5.8 mg/dL 2.6-6.0 [facility] Comment on above: The drugs N-Acetylcy steine and Metamizole may falsely depress this assay. Thin prep Papanicolaou smear with manual screeningOrdered By: Liane Stephenson on 03-24-2023 Thin prep Papanicolaou smear with manual screening 24 U/L 15-37 [facility] Thin prep Papanicolaou smear with manual screening 6 5-15 [facility] Basophil percentageOrdered B y: Dr. Stephenson on 02-08-2023 Bilirubin [Mass/Vol] 0.30 mg/dL 0.20-1.00 [facility] Comment on above: For patients on eltr ombopag therapy, use of Dimension [place] TBIL is not recommended. Chloride [Moles/Vol] 109 mmol/L 98-107 [facility] Glucose [Mass/Vol] 93 mg/dL 74-106 [facility] Potassium [Moles/Vol] 4.4 mmol/L 3.5-5.1 [facility] Protein [Mass/Vol] 7.8 g/dL 6.4-8.2 [facility] Sodium [Moles/Vol] 141 mmol/L 136-145 [facility] Erythrocyte sedimentation ra teOrdered By: Dr. Stephenson on 02-08-2023 ESR (Bld) [Velocity] 15 mm/h 0-30 [facility] Laboratory - Chemistry and C hemistry - challengeOrdered By: Dr. Stephenson on 02-08-2023 ALP [Catalytic activity/Vol] 49 U/L 45-117 [facility] ALT [Catalytic activity/Vol] 21 U/L 13-56 [facility] CO2 [Moles/Vol] 26.0 mmol/L 21.0-32.0 [facility] Globulin (S) [Mass/Vol] 4.2 g/dL 2.2-4.2 [facility] Urea nitrogen/Creatinine [Mass ratio] 17.6 mg/mg 10-20 [facility] No Panel InformationOrdered By: Dr. Stephenson on 02-08-2023 Estimated GFR (MDRD) Amer 67 mL/min >60 [facility] Comment on above: GFR Calc Estimated GFR (MDRD) Non-Af Amer 55 mL/min >60 [facility] Comment on above: Non- GFR Calc Serum or plasma C reactive p rotein measurement (mass/volume)Ordered By: Dr. Stephenson on 02-08-2023 CRP [Mass/Vol] mg/L 0.0-3.0 [facility] Comment on above: C-Reactive Protein ( CRP) provides useful information for thediagnosis, therapy and monitoring of inflammatory processesand associated diseases. For the evaluation of Relative Riskfor Cardiovascular Disease, a High Sensitivity CRP (HSCRP)should be ordered. Serum or plasma albumin osmel urement (mass/volume)Ordered By: Dr. Stephenson on 02-08-2023 Albumin [Mass/Vol] 3.6 g/dL 3.2-5.0 [facility] Serum or plasma albumin/glob ulin mass ratioOrdered By: Dr. Stephenson on 02-08-2023 Albumin/Globulin [Mass ratio] 0.9 {ratio} 0.9-2.4 [facility] Serum or plasma calcium osmel urement (mass/volume)Ordered By: Dr. Stephenson on 02-08-2023 Calcium [Mass/Vol] 9.5 mg/dL 8.5-10.1 [facility] Serum or plasma creatinine m easurement (mass/volume)Ordered By: Dr. Stephenson on 02-08-2023 Creatinine [Mass/Vol] 1.02 mg/dL 0.55-1.02 [facility] Comment on above: The validity of the calculated GFR & GFRAA in patients over 70 years has not been determined. Clinical correlation is essential. Serum or plasma urea nitroge n measurement (mass/volume)Ordered By: Dr. Stephenson on 02-08-2023 Urea nitrogen [Mass/Vol] 18 mg/dL 7-18 [facility] Serum or plasma uric acid me asurement (mass/volume)Ordered By: Dr. Stephenson on 02-08-2023 Urate [Mass/Vol] 6.6 mg/dL 2.6-6.0 [facility] Comment on above: The drugs N-Acetylcy steine and Metamizole may falsely depress this assay. Thin prep Papanicolaou smear with manual screeningOrdered By: Dr. Stephenson on 02-08-2023 Thin prep Papanicolaou smear with manual screening 23 U/L 15-37 [facility] Thin prep Papanicolaou smear with manual screening 6 5-15 [facility] Absolute lymphocyte countOrd ered By: Dr. Pugh on 01-01-2023 Lymphocytes Auto (Unsp spec) [#/Vol] 3.29 10*3/uL 0.83-4.51 [facility] Basophil percentageOrdered B y: Dr. Pugh on 01-01-2023 Basophils/100 WBC (Bld) 0.7 % 0-1 [facility] Eosinophils/100 WBC (Bld) 2.7 % 0-5 [facility] Neutrophils (Bld) [#/Vol] 4.6 10*3/uL 2.0-7.7 [facility] Neutrophils/100 WBC (Bld) 50.4 % 47-70 [facility] WBC (Bld) [#/Vol] 9.0 10*3/uL 4.4-11.0 [facility] Blood erythrocytes count (nu mber/volume)Ordered By: Dr. Pugh on 01-01-2023 RBC (Bld) [#/Vol] 4.59 10*6/uL 4.2-5.4 [facility] Blood hemoglobin measurement (mass/volume)Ordered By: Dr. Pugh on 01-01-2023 Hemoglobin (Bld) [Mass/Vol] 13.9 g/dL 12.0-15.0 [facility] Blood lymphocytes/100 leukoc ytesOrdered By: Dr. Pugh on 01-01-2023 Lymphocytes/100 WBC (Bld) 36.5 % 19-41 [facility] Blood monocytes/100 leukocyt esOrdered By: Dr. Pugh on 01-01-2023 Monocytes/100 WBC (Bld) 9.6 % 0-10 [facility] Blood platelet mean volumeOr dered By: Dr. Pugh on 01-01-2023 Platelet mean volume (Bld) [Entitic vol] 9.6 fL 6.2-12.0 [facility] Determination of erythrocyte mean corpuscular volume (MCV)Ordered By: Dr. Pugh on 01-01-2023 MCV (RBC) [Entitic vol] 92.8 fL 81-99 [facility] Hematocrit Auto (Bld) [Volum e fraction]Ordered By: Dr. Pugh on 01-01-2023 Hematocrit (Bld) [Volume fraction] 42.6 % 37-47 [facility] Laboratory - Hematology and Cell countsOrdered By: Dr. Pugh on 01-01-2023 Erythrocyte distribution width (RBC) [Entitic vol] 44.2 fL 35.1-43.9 [facility] Erythrocyte distribution width (RBC) [Ratio] 12.9 % 11.6-14.6 [facility] Immature granulocytes/100 WBC (Bld) 0.100 % 0.0-0.9 [facility] Comment on above: IG% - Immature Granu locytes (promyelocytes, myelocytes and metamyelocytes) > 1% indicates that a LEFT SHIFT is Present. MCH (RBC) [Entitic mass] 30.3 pg 27.0-32.0 [facility] Nucleated RBC/100 WBC (Bld) [Ratio] 0 % 0-5 [facility] MCHC Auto (RBC) [Mass/Vol]Or dered By: Dr. Pugh on 01-01-2023 MCHC (RBC) [Mass/Vol] 32.6 g/dL 32-36 [facility] No Panel InformationOrdered By: Dr. Pugh on 01-01-2023 D-Dimer Quantitative (PE/DVT) 0.36 FEU/ug/m 0.27-0.49 [facility] Comment on above: NORMAL D-Dimer level (<0.50) indicates no DVT or PE. Platelets bldOrdered By: Dr. Pugh on 01-01-2023 Platelets (Bld) [#/Vol] 258 10*3/uL 150-450 [facility] Basophil percentageOrdered B y: Dr. Stephenson on 10-14-2022 Bilirubin [Mass/Vol] 0.40 mg/dL 0.20-1.00 [facility] Comment on above: For patients on eltr ombopag therapy, use of Dimension [place] TBIL is not recommended. Protein [Mass/Vol] 7.3 g/dL 6.4-8.2 [facility] Direct bilirubinOrdered By: Dr. Stephenson on 10-14-2022 Bilirubin.direct [Mass/Vol] 0.11 mg/dL 0.00-0.30 [facility] Laboratory - Chemistry and C hemistry - challengeOrdered By: Dr. Stephenson on 10-14-2022 ALP [Catalytic activity/Vol] 86 U/L 45-117 [facility] ALT [Catalytic activity/Vol] 174 U/L [facility] Globulin (S) [Mass/Vol] 3.9 g/dL 2.2-4.2 [facility] Serum or plasma albumin osmel urement (mass/volume)Ordered By: Dr. Stephenson on 10-14-2022 Albumin [Mass/Vol] 3.4 g/dL 3.2-5.0 [facility] Thin prep Papanicolaou smear with manual screeningOrdered By: Dr. Stephenson on 10-14-2022 Thin prep Papanicolaou smear with manual screening 32 U/L 15-37 [facility] Basophil percentageOrdered B y: Dr. Morrow on 10-09-2022 Bilirubin [Mass/Vol] 0.50 mg/dL 0.20-1.00 [facility] Comment on above: For patients on eltr ombopag therapy, use of Dimension [place] TBIL is not recommended. Protein [Mass/Vol] 5.5 g/dL 6.4-8.2 [facility] Direct bilirubinOrdered By: Dr. Morrow on 10-09-2022 Bilirubin.direct [Mass/Vol] 0.16 mg/dL 0.00-0.30 [facility] Laboratory - Chemistry and C hemistry - challengeOrdered By: Dr. Morrow on 10-09-2022 ALP [Catalytic activity/Vol] 91 U/L 45-117 [facility] ALT [Catalytic activity/Vol] 518 U/L [facility] Globulin (S) [Mass/Vol] 3.1 g/dL 2.2-4.2 [facility] Serum or plasma albumin osmel urement (mass/volume)Ordered By: Dr. Morrow on 10-09-2022 Albumin [Mass/Vol] 2.4 g/dL 3.2-5.0 [facility] Thin prep Papanicolaou smear with manual screeningOrdered By: Dr. Morrow on 10-09-2022 Thin prep Papanicolaou smear with manual screening 185 U/L 15-37 [facility] Absolute lymphocyte countOrd ered By: Dr. Parsons on 10-08-2022 Lymphocytes Auto (Unsp spec) [#/Vol] 2.75 10*3/uL 0.83-4.51 [facility] Basophil percentageOrdered B y: Dr. Parsons on 10-08-2022 Basophils/100 WBC (Bld) 0.3 % 0-1 [facility] Chloride [Moles/Vol] 109 mmol/L 98-107 [facility] Cholesterol [Mass/Vol] 135 mg/dL <200 [facility] Comment on above: <200 mg/dL Desirable 200-240 mg/dL Borderline >240 mg/dL High Risk Eosinophils/100 WBC (Bld) 2.6 % 0-5 [facility] Glucose [Mass/Vol] 83 mg/dL 74-106 [facility] Neutrophils (Bld) [#/Vol] 7.0 10*3/uL 2.0-7.7 [facility] Neutrophils/100 WBC (Bld) 64.6 % 47-70 [facility] Potassium [Moles/Vol] 3.7 mmol/L 3.5-5.1 [facility] Sodium [Moles/Vol] 142 mmol/L 136-145 [facility] Triglyceride [Mass/Vol] 131 mg/dL <199 [facility] Comment on above: The drugs N-Acetylcy steine and Metamizole may falsely depress this assay.Serum Triglycerides Reference Interval Normal <150 mg/dL Borderline high 150 - 199 mg/dL High 200 - 499 mg/dL Very High > or = 500 mg/dL WBC (Bld) [#/Vol] 10.9 10*3/uL 4.4-11.0 [facility] Blood erythrocytes count (nu mber/volume)Ordered By: Dr. Parsons on 10-08-2022 RBC (Bld) [#/Vol] 4.25 10*6/uL 4.2-5.4 [facility] Blood hemoglobin measurement (mass/volume)Ordered By: Dr. Parsons on 10-08-2022 Hemoglobin (Bld) [Mass/Vol] 12.8 g/dL 12.0-15.0 [facility] Blood lymphocytes/100 leukoc ytesOrdered By: Dr. Parsons on 10-08-2022 Lymphocytes/100 WBC (Bld) 25.3 % 19-41 [facility] Blood monocytes/100 leukocyt esOrdered By: Dr. Parsons on 10-08-2022 Monocytes/100 WBC (Bld) 6.7 % 0-10 [facility] Blood platelet mean volumeOr dered By: Dr. Parsons on 10-08-2022 Platelet mean volume (Bld) [Entitic vol] 9.7 fL 6.2-12.0 [facility] Determination of erythrocyte mean corpuscular volume (MCV)Ordered By: Dr. Parsons on 10-08-2022 MCV (RBC) [Entitic vol] 93.6 fL 81-99 [facility] Hematocrit Auto (Bld) [Volum e fraction]Ordered By: Dr. Parsons on 10-08-2022 Hematocrit (Bld) [Volume fraction] 39.8 % 37-47 [facility] Laboratory - Chemistry and C hemistry - challengeOrdered By: Dr. Parsons on 10-08-2022 CO2 [Moles/Vol] 26.0 mmol/L 21.0-32.0 [facility] Lipase [Catalytic activity/Vol] 190 U/L 73-393 [facility] Urea nitrogen/Creatinine [Mass ratio] 19.5 mg/mg 10-20 [facility] Laboratory - Hematology and Cell countsOrdered By: Dr. Parsons on 10-08-2022 Erythrocyte distribution width (RBC) [Entitic vol] 45.7 fL 35.1-43.9 [facility] Erythrocyte distribution width (RBC) [Ratio] 13.4 % 11.6-14.6 [facility] Immature granulocytes/100 WBC (Bld) 0.500 % 0.0-0.9 [facility] Comment on above: IG% - Immature Granu locytes (promyelocytes, myelocytes and metamyelocytes) > 1% indicates that a LEFT SHIFT is Present. MCH (RBC) [Entitic mass] 30.1 pg 27.0-32.0 [facility] Nucleated RBC/100 WBC (Bld) [Ratio] 0.2 % 0-5 [facility] MCHC Auto (RBC) [Mass/Vol]Or dered By: Dr. Parsons on 10-08-2022 MCHC (RBC) [Mass/Vol] 32.2 g/dL 32-36 [facility] No Panel InformationOrdered By: Dr. Parsons on 10-08-2022 Estimated Creatinine Clearance Calc 54.09 ml/min [facility] Estimated GFR (MDRD) Amer 86 mL/min >60 [facility] Comment on above: GFR Calc Estimated GFR (MDRD) Non-Af Amer 71 mL/min >60 [facility] Comment on above: Non- GFR Calc Platelets bldOrdered By: Dr. Parsons on 10-08-2022 Platelets (Bld) [#/Vol] 319 10*3/uL 150-450 [facility] Serum or plasma albumin/glob ulin mass ratioOrdered By: Dr. Parsons on 10-08-2022 Albumin/Globulin [Mass ratio] 0.8 {ratio} 0.9-2.4 [facility] Serum or plasma calcium osmel urement (mass/volume)Ordered By: Dr. Parsons on 10-08-2022 Calcium [Mass/Vol] 7.8 mg/dL 8.5-10.1 [facility] Serum or plasma cholesterol in HDL measurement (mass/volume)Ordered By: Dr. Parsons on 10-08-2022 Cholesterol in HDL [Mass/Vol] 52 mg/dL >40 [facility] Comment on above: The drugs N-Acetylcy steine and Metamizole may falsely depress this assay. Reference Range HDL <40 mg/dL Low HDL Cholesterol HDL >or= 60 mg/dL High HDL Cholesterol Serum or plasma cholesterol in VLDL measurement (mass/volume)Ordered By: Dr. Parsons on 10-08-2022 Cholesterol in VLDL [Mass/Vol] 26 mg/dL 5-40 [facility] Serum or plasma creatinine m easurement (mass/volume)Ordered By: Dr. Parsons on 10-08-2022 Creatinine [Mass/Vol] 0.82 mg/dL 0.55-1.02 [facility] Comment on above: The validity of the calculated GFR & GFRAA in patients over 70 years has not been determined. Clinical correlation is essential. Serum or plasma low density lipoprotein (LDL) cholesterol measurement (mass/volume)Ordered By: Dr. Parsons on 10-08-2022 Cholesterol in LDL [Mass/Vol] 57 mg/dL 0-130 [facility] Serum or plasma urea nitroge n measurement (mass/volume)Ordered By: Dr. Parsons on 10-08-2022 Urea nitrogen [Mass/Vol] 16 mg/dL 7-18 [facility] Thin prep Papanicolaou smear with manual screeningOrdered By: Dr. Parsons on 10-08-2022 Thin prep Papanicolaou smear with manual screening 7 5-15 [facility] Absolute lymphocyte counton 10-07-2022 Lymphocytes Auto (Unsp spec) [#/Vol] 1.76 10*3/uL 0.83-4.51 [facility] Work Phone: Acetaminophen level (mass/vo lume)Ordered By: Dr. Maier on 10-07-2022 Acetaminophen (Unsp spec) [Mass/Vol] < 2.0 ug/mL 10.0-30.0 [facility] Basophil percentageon 2021 Basophils/100 WBC (Bld) 0.3 % 0-1 [facility] Work Phone: Bilirubin [Mass/Vol] 1.10 mg/dL 0.20-1.00 [facility] Work Phone: Comment on above: For patients on eltr ombopag therapy, use of Dimension [place] TBIL is not recommended. Chloride [Moles/Vol] 103 mmol/L 98-107 [facility] Work Phone: Eosinophils/100 WBC (Bld) 2.6 % 0-5 [facility] Work Phone: Glucose [Mass/Vol] 120 mg/dL 74-106 [facility] Work Phone: Comment on above: Fasting Glucose resu lt from 100 to 125 mg/dL suggests IMPAIRED HOMEOSTASIS per A.D.A. criteria. Neutrophils (Bld) [#/Vol] 7.4 10*3/uL 2.0-7.7 [facility] Work Phone: Neutrophils/100 WBC (Bld) 72.0 % 47-70 [facility] Work Phone: Potassium [Moles/Vol] 3.7 mmol/L 3.5-5.1 [facility] Work Phone: Protein [Mass/Vol] 7.2 g/dL 6.4-8.2 [facility] Work Phone: Sodium [Moles/Vol] 140 mmol/L 136-145 [facility] Work Phone: WBC (Bld) [#/Vol] 10.3 10*3/uL 4.4-11.0 [facility] Work Phone: Blood erythrocytes count (nu mber/volume)on 10-07-2022 RBC (Bld) [#/Vol] 4.69 10*6/uL 4.2-5.4 [facility] Work Phone: Blood hemoglobin measurement (mass/volume)on 10-07-2022 Hemoglobin (Bld) [Mass/Vol] 14.1 g/dL 12.0-15.0 [facility] Work Phone: Blood lymphocytes/100 leukoc yteson 10-07-2022 Lymphocytes/100 WBC (Bld) 17.0 % 19-41 [facility] Work Phone: [phone] Blood monocytes/100 leukocyt eson 10-07-2022 Monocytes/100 WBC (Bld) 7.6 % 0-10 [facility] Work Phone: Blood platelet mean volumeon 10-07-2022 Platelet mean volume (Bld) [Entitic vol] 9.5 fL 6.2-12.0 [facility] Work Phone: Determination of erythrocyte mean corpuscular volume (MCV)on 10-07-2022 MCV (RBC) [Entitic vol] 92.1 fL 81-99 [facility] Work Phone: Hematocrit Auto (Bld) [Volum e fraction]on 10-07-2022 Hematocrit (Bld) [Volume fraction] 43.2 % 37-47 [facility] Work Phone: INR in Blood by Coagulation assayOrdered By: Dr. Parsons on 10-07-2022 INR Coag (Bld) [Relative time] 1.0 {INR} [facility] Laboratory - Chemistry and C hemistry - challengeon 10-07-2022 ALP [Catalytic activity/Vol] 155 U/L 45-117 [facility] Work Phone: ALT [Catalytic activity/Vol] 1430 U/L 13-56 [facility] Work Phone: CO2 [Moles/Vol] 31.0 mmol/L 21.0-32.0 [facility] Work Phone: Globulin (S) [Mass/Vol] 3.9 g/dL 2.2-4.2 [facility] Work Phone: Lipase [Catalytic activity/Vol] 580 U/L 73-393 [facility] Work Phone: Urea nitrogen/Creatinine [Mass ratio] 19.8 mg/mg 10-20 [facility] Work Phone: Laboratory - CoagulationOrde red By: Dr. Parsons on 10-07-2022 aPTT Coag (Bld) [Time] 24.3 s 24.1-36.2 [facility] Coag (PPP) [Time] 12.6 s 11.7-14.9 [facility] Laboratory - Hematology and Cell countson 10-07-2022 Erythrocyte distribution width (RBC) [Entitic vol] 45.1 fL 35.1-43.9 [facility] Work Phone: Erythrocyte distribution width (RBC) [Ratio] 13.4 % 11.6-14.6 [facility] Work Phone: Immature granulocytes/100 WBC (Bld) 0.500 % 0.0-0.9 [facility] Work Phone: Comment on above: IG% - Immature Granu locytes (promyelocytes, myelocytes and metamyelocytes) > 1% indicates that a LEFT SHIFT is Present. MCH (RBC) [Entitic mass] 30.1 pg 27.0-32.0 [facility] Work Phone: Nucleated RBC/100 WBC (Bld) [Ratio] 0 % 0-5 [facility] Work Phone: Laboratory - Microbiology an d Antimicrobial susceptibilityOrdered By: Dr. Parsons on 10-07-2022 SARS-CoV-2 (COVID-19) RNA ARLEN+probe Ql (Unsp spec) Not detected Not Detect [facility] Comment on above: Normal Reference Ran ge: [...] and RNA 12b panel ARLEN+probe (Unsp spec) [facility] MCHC Auto (RBC) [Mass/Vol]on 10-07-2022 MCHC (RBC) [Mass/Vol] 32.6 g/dL 32-36 [facility] Work Phone: No Panel InformationOrdered By: Dr. Maier on 10-07-2022 Hepatitis A IgM Antibody Negative Negative [facility] Hepatitis B Core IgM Antibody Negative Negative [facility] Hepatitis C Antibody (EIA) 0.1 s/co ratio 0.0-0.9 [facility] Hepatitis C Antibody Comment Comment . [facility] Comment on above: NegativeNot infected with HCV, unless recent infection issuspected or other evidence exists to indicate HCVinfection.Performed at: [facility] [id number] Director: Isaac Jiang PhD, Phone: [phone] Troponin I High Sensitivity 6 pg/mL 3.0-54.0 [facility] Comment on above: Please Note: New Eun t Units and Gender Specific Reference Ranges. For more information see Policy Stat Procedure [place] High Sensitivity Troponin (TNIH) and attachments. No Panel Informationon 10-07 Estimated Creatinine Clearance Calc 48.95 ml/min [facility] Work Phone: Estimated GFR (MDRD) Amer 77 mL/min >60 [facility] Work Phone: Comment on above: GFR Calc Estimated GFR (MDRD) Non-Af Amer 63 mL/min >60 [facility] Work Phone: Comment on above: Non- GFR Calc Platelets bldon 10-07-2022 Platelets (Bld) [#/Vol] 351 10*3/uL 150-450 [facility] Work Phone: Serum or plasma albumin osmel urement (mass/volume)on 10-07-2022 Albumin [Mass/Vol] 3.3 g/dL 3.2-5.0 [facility] Work Phone: Serum or plasma albumin/glob ulin mass ratioon 10-07-2022 Albumin/Globulin [Mass ratio] 0.8 {ratio} 0.9-2.4 [facility] Work Phone: Serum or plasma calcium osmel urement (mass/volume)on 10-07-2022 Calcium [Mass/Vol] 9.3 mg/dL 8.5-10.1 [facility] Work Phone: Serum or plasma creatinine m easurement (mass/volume)on 10-07-2022 Creatinine [Mass/Vol] 0.91 mg/dL 0.55-1.02 [facility] Work Phone: Comment on above: The validity of the calculated GFR & GFRAA in patients over 70 years has not been determined. Clinical correlation is essential. Serum or plasma hepatitis B virus surface antigen detection by immunoassayOrdered By: Dr. Maier on 10-07-2022 HBV surface Ag IA Ql Negative Negative [facility] Serum or plasma urea nitroge n measurement (mass/volume)on 10-07-2022 Urea nitrogen [Mass/Vol] 18 mg/dL 7-18 [facility] Work Phone: Thin prep Papanicolaou smear with manual screeningon 10-07-2022 Thin prep Papanicolaou smear with manual screening 1019 U/L 15-37 [facility] Work Phone: Thin prep Papanicolaou smear with manual screening 6 5-15 [facility] Work Phone: Absolute lymphocyte counton 04-16-2022 Lymphocytes Auto (Unsp spec) [#/Vol] 2.90 10*3/uL 0.83-4.51 [facility] Work Phone: Basophil percentageon 2021 Basophils/100 WBC (Bld) 0.7 % 0-1 [facility] Work Phone: Eosinophils/100 WBC (Bld) 1.1 % 0-5 [facility] Work Phone: Neutrophils (Bld) [#/Vol] 5.7 10*3/uL 2.0-7.7 [facility] Work Phone: Neutrophils/100 WBC (Bld) 59.6 % 47-70 [facility] Work Phone: WBC (Bld) [#/Vol] 9.6 10*3/uL 4.4-11.0 [facility] Work Phone: Blood erythrocytes count (nu mber/volume)on 04-16-2022 RBC (Bld) [#/Vol] 4.29 10*6/uL 4.2-5.4 [facility] Work Phone: Blood hemoglobin measurement (mass/volume)on 04-16-2022 Hemoglobin (Bld) [Mass/Vol] 13.3 g/dL 12.0-15.0 [facility] Work Phone: Blood lymphocytes/100 leukoc yteson 04-16-2022 Lymphocytes/100 WBC (Bld) 30.1 % 19-41 [facility] Work Phone: Blood monocytes/100 leukocyt eson 04-16-2022 Monocytes/100 WBC (Bld) 8.1 % 0-10 [facility] Work Phone: Blood platelet mean volumeon 04-16-2022 Platelet mean volume (Bld) [Entitic vol] 9.8 fL 6.2-12.0 [facility] Work Phone: Determination of erythrocyte mean corpuscular volume (MCV)on 04-16-2022 MCV (RBC) [Entitic vol] 94.6 fL 81-99 [facility] Work Phone: Hematocrit Auto (Bld) [Volum e fraction]on 04-16-2022 Hematocrit (Bld) [Volume fraction] 40.6 % 37-47 [facility] Work Phone: Iron measurement (mass/mass) on 04-16-2022 Iron (Unsp spec) [Mass/Mass] 89 ug/dL 50-170 [facility] Work Phone: Laboratory - Hematology and Cell countson 04-16-2022 Erythrocyte distribution width (RBC) [Entitic vol] 44.2 fL 35.1-43.9 [facility] Work Phone: Erythrocyte distribution width (RBC) [Ratio] 12.7 % 11.6-14.6 [facility] Work Phone: Immature granulocytes/100 WBC (Bld) 0.400 % 0.0-0.9 [facility] Work Phone: Comment on above: IG% - Immature Granu locytes (promyelocytes, myelocytes and metamyelocytes) > 1% indicates that a LEFT SHIFT is Present. MCH (RBC) [Entitic mass] 31.0 pg 27.0-32.0 [facility] Work Phone: Nucleated RBC/100 WBC (Bld) [Ratio] 0 % 0-5 [facility] Work Phone: MCHC Auto (RBC) [Mass/Vol]on 04-16-2022 MCHC (RBC) [Mass/Vol] 32.8 g/dL 32-36 [facility] Work Phone: Platelets bldon 06-09-2022 Platelets (Bld) [#/Vol] 331 10*3/uL 150450 [facility] Work Phone: CNOVon 07-01-2021 CNOV Office Visit (GASTWS ) EUGENIE MATA ([id number]) 1940 F Date Time Provider Department 07/01/21 8:30 AM MINDY NASCIMENTO During your visit today, we recorded the following information about you: Pulse Blood pressure Weight 60/minute 120/62 64.9 kg Mindy Nascimento APRN.CNP 07/01/2021 9:00 AM Signed DEPARTMENT OF [...] 3. Rectum, polypectomy (C) - Hyperplastic polyp. DTP/linsey 06/08/2016 COMMENT 2. (B). Additional histologic sections [...] SURGERY [facility] - [facility] Colon[facility] WNL - [facility]COP [facility]/ [facility] 11/23/05 Colonoscopy - [facility]COP [facility] 02[facility]03/11 - [facility]COP [facility] 06/05/16 Colonoscopy - DANDC, DIAG AND/OR [...] (more content not included)... [facility] C[facility]N Telephone (ZACK) EUGENIE MATA ([id number]) 1940 F Date Time Provider Department 06/03/21 MINDY NASCIMENTO During your visit today, we recorded the [...] PCP regarding the message below. SONIA Cosme APRN.GOLDEN 06/08/2021 9:38 AM Signed Can you please follow up with patient and see if her constipation has resolved since the colonoscopy. What is she taking? If still constipated, can take OTC magnesium citrate and take half the bottle, if no BM within one hour then continue to take the other half of magnesium citrate. Thanks Mindy Nascimento APRN.GOLDEN Camaraia Benito VRAMA 06/12/2021 1:44 PM Signed LEFT MESSAGE FOR [...] She is taking fiber daily 2 TBPs Mindy Nascimento APRN.CNP Allergies As of Date: 06/03/2021 Noted [...] colon [D12.6] 05/29/2021 05/29/2021 Encounter Status:Closed by MINDY NASCIMENTO on 06/23/21 Normal [facility] HISTORY PHYSICALon HISTORY PHYSICAL HNO ID: [id number] Author: Lucas Buchanan MD Service: General Surgery [...] SIGNATURE: Lucas Buchanan III, MD PATIENT NAME: Eugenie Mata DATE: May 29, 2021 TIME: 7:53 AM Normal [facility] NURSING PROGon 05-29-2021 NURSING PROG HNO ID: [id number] Author: Gracy Aguilar RN Service: ? Author Type: Registered Nurse Type: Nursing Progress Note Filed: 05/29/2021 8:27 AM Note Text: Patient arrived to PACU, on left side, abdomen soft. Patient resting comfortably with no pain. Call light within reach. Gracy Aguilar RN [facility] NURSING PROG HNO ID: [id number] Author: Aleta Ely RN Service: ? Author Type: Registered Nurse Type: Nursing Progress Note Filed: 05/29/2021 7:58 AM Note Text: [facility] PRE-OP NURSING HAND OFF NOTE SBAR Hand off given to Leonor Win RN. Hand off was communicated verbally and at the patient's bedside and all questions were answered. Aleta Ely RN [facility] CNOVon 04-24-2021 CNOV Office Visit (GASTWS ) EUGENIE MATA ([id number]) 1940 F Date Time Provider Department 04/24/21 2:00 PM MINDY NASCIMENTO During your visit today, we recorded the following information about you: Pulse Blood pressure Weight Height 68/minute 108/60 65.3 kg 1.49 m Mindy Nascimento APRN.CNP 04/25/2021 9:06 AM Signed DEPARTMENT OF GASTROENTEROLOGY - NEW PATIENT/CONSULT REASON FOR VISIT Eugenie Mata is a 80 year old female who is scheduled at the request of Adelina Black for No chief complaint on file.. My final recommendations will be communicated back to the requesting physician by the way of the shared medical record, fax, or via US Mail HISTORY OF PRESENT ILLNESS Eugenie Mata is [...] Laterality Date - COLONOSCOP W/ OR W/O [facility] SPEC 2002 Colonoscopy WNL - COLONOSCOP W/ [...] not included)... Normal [facility] Akanksha 04-24-2021 LONNIE Telephone (ZACK) EUGENIE MATA ([id number]) 1940 F Date Time Provider Department 04/24/21 MINDY NASCIMENTO During your visit today, we recorded the following information about you: Jeimy Oliver LPN 04/24/2021 3:00 PM Addendum Patient is scheduled at [facility] on 05/29/[address] Buchanan for a colonoscopy. DX: Adenomatous polyp of colon, unspecified part of colon [D12.6] Verbal and written instructions given. [facility] SURGICAL PHONE NOTE Date of Procedure/Surgery: 05/22/21 Procedure/Surgery Type: COLONOSCOPY ? SEDATION:Conscious Sedation Location of Planned Procedure/Surgery: ? 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 Author Type: Nurse Practitioner Type: HANDP Filed: 04/25/2021 9:06 AM Note Text: DEPARTMENT OF GASTROENTEROLOGY - NEW PATIENT/CONSULT REASON FOR VISIT Eugenie Mata is a 80 year old female who is scheduled at the request of Adelina Black for No chief complaint on file.. My final recommendations will be communicated back to the requesting physician by the way of the shared medical record, fax, or via US Mail HISTORY OF PRESENT ILLNESS Eugenie Mata is [...] Laterality Date - [facility] Colonoscopy WNL - [facility]ONOSCOP W/ [facility] 11/23/05 Colonoscopy - [facility]COP [facility] 02/03/11 - [facility]COP [facility] 06/05/16 Colonoscopy - DANDC, DIAG AND/OR [...] diclofenac, E (more content not included)... Normal [facility] HOSPon 04-24-2021 HOSP Patient:Eugenie Mata MRN: Height:4' 10.661(1.49 m) Weight:No patient [...] and RNA 12b panel ARLEN+probe (Unsp spec) [facility] Work Phone: Vital Signs Date Time Vital Sign Value Performing Clinician Faci lity 05-22-2025 12:08-0400 Body temperature 97.9 [degF] Dr. Liane Stephenson DO Work Phone: [facility] 05-22-2025 12:08-0400 Diastolic blood pressure 54 mm[Hg] Dr. Liane Stephesnon DO Work Phone: [facility] 05-22-2025 12:08-0400 Heart rate 58 /min Dr. Liane Stephenson DO Work Phone: [facility] 05-22-2025 12:08-0400 Respiratory rate 17 /min Dr. Liane Stephenson DO Work Phone: [facility] 05-22-2025 12:08-0400 SaO2% (BldA) [Mass fraction] 100 % Dr. Liane Stephenson DO Work Phone: [facility] 05-22-2025 12:08-0400 Systolic blood pressure 102 mm[Hg] Dr. Liane Stephenson DO Work Phone: [facility] 05-22-2025 03:29-0400 Body mass index (BMI) [Ratio] 29 kg/m2 Dr. Liane Stephenson DO Work Phone: [facility] 05-22-2025 03:29-0400 Body weight 62.[address] Liane Stephenson DO Work Phone: [facility] 05-20-2025 20:04-0400 Body height 147.[address] Liane Stephenson DO Work Phone: [facility] 05-20-2025 19:10-0400 Diastolic blood pressure 82 mm[Hg] Dr. Liane Stephenson DO Work Phone: [facility] 05-20-2025 19:10-0400 Heart rate 62 /min Dr. Liane Stephenson DO Work Phone: [facility] 05-20-2025 19:10-0400 Respiratory rate 24 /min Dr. Liane Stephenson DO Work Phone: [facility] 05-20-2025 19:10-0400 SaO2% (BldA) [Mass fraction] 95 % Dr. Liane Stephenson DO Work Phone: [facility] 05-20-2025 19:10-0400 Systolic blood pressure 123 mm[Hg] Dr. Liane Stephenson DO Work Phone: [facility] 05-20-2025 17:26-0400 Body temperature 98.2 [degF] Dr. Liane Stephenson DO Work Phone: [facility] 05-20-2025 13:50-0400 Body height 147.[address] Liane Stephenson DO Work Phone: [facility] 05-20-2025 13:50-0400 Body mass index (BMI) [Ratio] 29.1 kg/m2 Dr. Liane Stephenson DO Work Phone: [facility] 05-20-2025 13:50-0400 Body weight 63.[address] Liane Stephenson DO Work Phone: [facility] [facility] 12-29-2024 10:51-0500 Body height 147.[address] Liane Stephenson DO Work Phone: [facility] 12-29-2024 10:51-0500 Body mass index (BMI) [Ratio] 28.2 kg/m2 Dr. Liane Stephenson DO Work Phone: [facility] 12-29-2024 10:51-0500 Body temperature 96.8 [degF] Dr. Liane Stephenson DO Work Phone: [facility] 12-29-2024 10:51-0500 Body weight 61.[address] Liane Stephenson DO Work Phone: [facility] 12-29-2024 10:51-0500 Diastolic blood pressure 68 mm[Hg] Dr. Liane Stephenson DO Work Phone: [facility] 12-29-2024 10:51-0500 Heart rate 64 /min Dr. Liane Stephenson DO Work Phone: [facility] 12-29-2024 10:51-0500 Respiratory rate 16 /min Dr. Liane Stephenson DO Work Phone: [facility] 12-29-2024 10:51-0500 SaO2% (BldA) [Mass fraction] 100 % Dr. Liane Stephenson DO Work Phone: [facility] 12-29-2024 10:51-0500 Systolic blood pressure 138 mm[Hg] Dr. Liane Stephenson DO Work Phone: [facility] 03-16-2024 19:50-0400 Body height 147.32 cm [facility] 03-16-2024 19:50-0400 Body mass index (BMI) [Ratio] 27.8 kg/m2 [facility] 03-16-2024 19:50-0400 Body temperature 97.8 [degF] [facility] 03-16-2024 19:50-0400 Body weight 60.49 kg [facility] 03-16-2024 19:50-0400 Diastolic blood pressure 65 mm[Hg] [facility] 03-16-2024 19:50-0400 Heart rate 67 /min [facility] 03-16-2024 19:50-0400 Respiratory rate 16 /min [facility] 03-16-2024 19:50-0400 SaO2% (BldA) [Mass fraction] 100 % [facility] 03-16-2024 19:50-0400 Systolic blood pressure 163 mm[Hg] [facility] 12-31-2023 10:17-0500 Body height 152.4 cm [facility] 12-31-2023 10:17-0500 Body mass index (BMI) [Ratio] 24.4 kg/m2 [facility] 12-31-2023 10:17-0500 Body temperature 97 [degF] [facility] 12-31-2023 10:17-0500 Body weight 56.69 kg [facility] 12-31-2023 10:17-0500 Diastolic blood pressure 50 mm[Hg] [facility] 12-31-2023 10:17-0500 Heart rate 66 /min [facility] 12-31-2023 10:17-0500 Respiratory rate 16 /min [facility] 12-31-2023 10:17-0500 SaO2% (BldA) [Mass fraction] 99 % [facility] 12-31-2023 10:17-0500 Systolic blood pressure 134 mm[Hg] [facility] 07-02-2023 12:11-0400 Body height 152.4 cm [facility] 07-02-2023 12:11-0400 Body mass index (BMI) [Ratio] 23.6 kg/m2 [facility] 07-02-2023 12:11-0400 Body temperature 97.2 [degF] [facility] 07-02-2023 12:11-0400 Body weight 54.88 kg [facility] 07-02-2023 12:11-0400 Diastolic blood pressure 77 mm[Hg] [facility] 07-02-2023 12:11-0400 Heart rate 64 /min [facility] 07-02-2023 12:11-0400 Respiratory rate 16 /min [facility] 07-02-2023 12:11-0400 SaO2% (BldA) [Mass fraction] 100 % [facility] 07-02-2023 12:11-0400 Systolic blood pressure 142 mm[Hg] [facility] 01-01-2023 22:47-0500 Diastolic blood pressure 61 mm[Hg] Dr. Liane Stephenson Work Phone: [facility] 01-01-2023 22:47-0500 Heart rate 73 /min Dr. Liane Stephenson Work Phone: [facility] 01-01-2023 22:47-0500 Respiratory rate 15 /min Dr. Liane Stephenson Work Phone: [facility] 01-01-2023 22:47-0500 SaO2% (BldA) [Mass fraction] 98 % Dr. Liane Stephenson Work Phone: [facility] 01-01-2023 22:47-0500 Systolic blood pressure 125 mm[Hg] Dr. Liane Stephenson Work Phone: [facility] 01-01-2023 18:21-0500 Body height 147.[address] Liane Stephenson Work Phone: [facility] 01-01-2023 18:21-0500 Body mass index (BMI) [Ratio] 29.9 kg/m2 Dr. Liane Stephenson Work Phone: [facility] 01-01-2023 18:21-0500 Body temperature 96.8 [degF] Dr. Liane Stephenson Work Phone: [facility] 01-01-2023 18:21-0500 Body weight 65.[address] Liane Stephenson Work Phone: [facility] 12-18-2022 10:27-0500 Body height 147.[address] Liane Stephenson Work Phone: [facility] 12-18-2022 10:27-0500 Body mass index (BMI) [Ratio] 28.8 kg/m2 Dr. Liane Stephenson Work Phone: [facility] 12-18-2022 10:27-0500 Body temperature 96.6 [degF] Dr. Liane Stephenson Work Phone: [facility] 12-18-2022 10:27-0500 Body weight 62.[address] Liane Stephenson Work Phone: [facility] 12-18-2022 10:27-0500 Diastolic blood pressure 82 mm[Hg] Dr. Liane Stephenson Work Phone: [facility] 12-18-2022 10:27-0500 Heart rate 65 /min Dr. Liane Stephenson Work Phone: [facility] 12-18-2022 10:27-0500 Respiratory rate 16 /min Dr. Liane Stephenson Work Phone: [facility] 12-18-2022 10:27-0500 SaO2% (BldA) [Mass fraction] 99 % Dr. Liane Stephenson Work Phone: [facility] 12-18-2022 10:27-0500 Systolic blood pressure 141 mm[Hg] Dr. Liane Stephenson Work Phone: [facility] 10-09-2022 08:05-0500 Body temperature 97.9 [degF] Dr. Liane Stephenson Work Phone: [facility] 10-09-2022 08:05-0500 Diastolic blood pressure 80 mm[Hg] Dr. Liane Stephenson Work Phone: [facility] 10-09-2022 08:05-0500 Heart rate 61 /min Dr. Liane Stephenson Work Phone: [facility] 10-09-2022 08:05-0500 Respiratory rate 18 /min Dr. Liane Stephenson Work Phone: [facility] 10-09-2022 08:05-0500 SaO2% (BldA) [Mass fraction] 100 % Dr. Liane Stephenson Work Phone: [facility] 10-09-2022 08:05-0500 Systolic blood pressure 155 mm[Hg] Dr. Liane Stephenson Work Phone: [facility] 10-09-2022 04:34-0500 Body weight 62.[address] Liane Stephenson Work Phone: [facility] 10-08-2022 10:21-0500 Body height 147.[address] Liane Stephenson Work Phone: [facility] Work Phone: 10-07-2022 19:14-0500 Body mass index (BMI) [Ratio] 29.3 kg/m2 Dr. Liane Stephenson Work Phone: [facility] 10-07-2022 17:51-0500 Body temperature 97.2 [degF] [facility] Work Phone: 10-07-2022 17:51-0500 Diastolic blood pressure 44 mm[Hg] [facility] Work Phone: 10-07-2022 17:51-0500 Heart rate 75 /min [facility] Work Phone: 10-07-2022 17:51-0500 Respiratory rate 18 /min [facility] Work Phone: 10-07-2022 17:51-0500 SaO2% (BldA) [Mass fraction] 98 % [facility] Work Phone: 10-07-2022 17:51-0500 Systolic blood pressure 128 mm[Hg] [facility] Work Phone: 10-07-2022 14:42-0500 Body height 147.32 cm [facility] Work Phone: 10-07-2022 14:42-0500 Body mass index (BMI) [Ratio] 29.5 kg/m2 [facility] Work Phone: 10-07-2022 14:42-0500 Body weight 63.95 kg [facility] Work Phone: 06-19-2022 10:30-0400 Body height 147.32 cm [facility] Work Phone: 06-19-2022 10:30-0400 Body temperature 96.8 [degF] [facility] Work Phone: 06-19-2022 10:30-0400 Diastolic blood pressure 76 mm[Hg] [facility] Work Phone: 06-19-2022 10:30-0400 Heart rate 63 /min [facility] Work Phone: 06-19-2022 10:30-0400 Respiratory rate 16 /min [facility] Work Phone: 06-19-2022 10:30-0400 SaO2% (BldA) [Mass fraction] 100 % [facility] Work Phone: 06-19-2022 10:30-0400 Systolic blood pressure 131 mm[Hg] [facility] Work Phone: 12-25-2021 09:48-0500 Body height 147.32 cm [facility] Work Phone: 12-25-2021 09:48-0500 Body mass index (BMI) [Ratio] 29.2 kg/m2 [facility] Work Phone: 12-25-2021 09:48-0500 Body temperature 97.6 [degF] [facility] Work Phone: 12-25-2021 09:48-0500 Body weight 63.5 kg [facility] Work Phone: 12-25-2021 09:48-0500 Diastolic blood pressure 90 mm[Hg] [facility] Work Phone: 12-25-2021 09:48-0500 Heart rate 78 /min [facility] Work Phone: 12-25-2021 09:48-0500 Respiratory rate 16 /min [facility] Work Phone: 12-25-2021 09:48-0500 SaO2% (BldA) [Mass fraction] 97 % [facility] Work Phone: 12-25-2021 09:48-0500 Systolic blood pressure 131 mm[Hg] [facility] Work Phone: Encounters Encounter Date Encounter Type Care Provider Facility Start: 05-22-2025 Non-patient / Non-visit Dr. Luis Dominguez MD -[facility] Start: [facility] Start: 05-21-2025 Non-patient / Non-visit Dr. Luis Dominguez MD -[facility] Start: 05-20-2025 ambulatory Ignacia Parsons Facility :[facility] Start: 05-20-2025 End: 05-22-2025 Evaluation and management of inpatient Dr. Ignacia Parsons MD -Progressive Care Unit Work Phone: Start: 04-10-2025 End: 04-10-[address] Liane Stephenson DO Work Phone: [facility] Work Phone: Start: 04-10-2025 End: 04-10-[address] Liane Stephenson DO -Laboratory [place] Work Phone: Start: 04-10-2025 End: 04-10-2025 ambulatory Liane Stephenson Facility:[facility] Start: 12-29-2024 End: 12-29-[address] Liane Stephenson DO -Medical Out Work Phone: Start: 12-29-2024 End: 12-29-2024 ambulatory Liane Stephenson Facility:[facility] Start: 06-30-2024 End: 06-30-2024 ambulatory Liane Stephenson Facility:[facility] Start: 06-19-2024 End: 06-19-2024 ambulatory Arash Cruz Facility:[facility] Start: 03-16-2024 End: 03-16-2024 Emergency department patient visit [facility]-Emergency Department Work Phone: Start: 12-31-2023 End: 12-31-2023 ambulatory [facility] Work Phone: Start: 12-31-2023 End: 12-31-2023 Patient encounter procedure [facility]-Medical Out Work Phone: Start: 12-08-2023 End: 12-08-2023 Patient encounter procedure [facility]-Arash Mckeon [facility] Start: 10-11-2023 End: 11-07-2023 ambulatory [facility] Work Phone: Start: 10-11-2023 End: 11-07-2023 Discharged Recurring [facility]-Nutritional Services Work Phone: Start: 10-11-2023 Registered Recurring [facility]-Physical Therapy Work Phone: Start: 09-07-2023 End: 09-07-2023 ambulatory [facility] Work Phone: Start: 09-07-2023 End: 09-07-2023 Patient encounter procedure [facility]-Radiology, [place] Work Phone: Start: 07-02-2023 End: 07-02-2023 ambulatory [facility] Work Phone: Start: 07-02-2023 End: 07-02-2023 Patient encounter procedure [facility]-Medical Out Work Phone: Start: 05-07-2023 End: 05-07-2023 ambulatory [facility] Work Phone: Start: 05-07-2023 End: 05-07-2023 Patient encounter procedure [facility]-RAD [facility] [employer] Work Phone: Start: 03-30-2023 End: 03-30-2023 Patient encounter procedure [facility]-Radiology, [place] Work Phone: Start: 03-24-2023 End: 03-24-2023 [facility] Start: 02-08-2023 End: 02-08-2023 ambulatory [facility] Work Phone: Start: 02-08-2023 End: 02-08-2023 [facility] Start: 01-01-2023 End: 01-01-2023 Emergency department patient visit Dr. Liane Stephenson Work Phone: [facility]-Emergency Department Start: 12-18-2022 End: 12-18-[address] Liane Stephenson Work Phone: [facility] Work Phone: Start: 12-18-2022 End: 12-18-[address] Liane Stephenson Work Phone: [facility]-Medical Out Start: 10-14-2022 End: 10-14-[address] L[facility] Stephenson [facility] Start: 10-09-2022 Non-patient / Non-visit Dr. Radha Stephenson Work Phone: [facility] Inpatient [facility] Start: 10-08-2022 Non-patient / Non-visit Dr. Radha Stephenson Work Phone: [facility] Start: 10-08-2022 Non-patient / Non-visit Dr. Radha tSephenson Work Phone: [facility] Start: 10-07-2022 Non-patient / Non-visit Dr. Radha Stephenson Work Phone: [facility] Start: 10-07-2022 End: 10-09-2022 Evaluation and management of inpatient [facility]-Medical Surgical 3 Start: 06-19-2022 End: 06-19-2022 Patient encounter procedure [facility]-Medical Out Start: 04-16-2022 End: 04-16-2022 Patient encounter procedure [facility] Start: 12-25-2021 End: 12-25-2021 Patient encounter procedure [facility]-Medical Out Procedures Date Procedure Procedure Detail Performing Clinician Start: 05-22-[address] Liane Stephenson DO Work Phone: Start: 05-22-2025 Serum inorganic phos phate measurement Dr. Liane Stephenson DO Work Phone: Start: 05-20-2025 Plain X-ray of shoulder Dr. Liane Stephenson DO Work Phone: Start: 05-20-2025 Plain chest X-ray Dr. Martine Stephenson DO Work Phone: Start: 05-20-2025 D-dimer assay, quantitative Dr. Liane Stephenson DO Work Phone: Comment on above: NORMAL D-Dimer level (<0.50) indicates no DVT or PE. Start: 05-20-[address] Liane Stephenson DO Work Phone: Start: 09-07-2023 Plain x-ray of pelvi s [...] Treatment Date Care Activity Detail Author Start: 05-22-2025 Patient discharge [facility] Start: 05-20-2025 Following clinical pathway protocol [facility] Start: 05-20-2025 Assessment of risk o f venous thromboembolism [facility] Start: 05-20-2025 Fall prevention [facility] Start: 05-20-2025 Incentive spirometry [facility] Start: 05-20-2025 Inhalation therapy procedure [facility] Start: 05-20-2025 Insertion of cathete r into peripheral vein [facility] Start: 05-20-2025 Introduction of urinary catheter [facility] Start: 05-20-2025 Measuring intake and output [facility] Start: 05-20-2025 Providing care according to standard [facility] Start: 05-20-2025 Provision of activity privileges [facility] Start: 05-20-2025 Referral to sap trainer [facility] Start: 05-20-2025 Referral to service [facility] Start: 05-20-2025 Tobacco use cessation education [facility] Start: 05-20-2025 [facility] Start: 05-20-2025 Electrocardiographic procedure [facility] Start: 05-20-2025 Hospital admission, emergency, from emergency room, medical nature [facility] Start: 05-20-2025 Electrocardiographic procedure [facility] Start: 05-20-2025 Verification routine [facility] Start: 05-20-2025 Admission procedure [facility] Start: 05-20-2025 [facility] Start: 03-16-2024 [facility] Start: 10-09-2022 Patient discharge [facility] Start: 10-07-2022 Application of inter mittent pneumatic compression device [facility] Start: 10-07-2022 Assessment of risk o f venous thromboembolism [facility] Start: 10-07-2022 Fall prevention [facility] Start: 10-07-2022 Incentive spirometry [facility] Start: 10-07-2022 Inhalation therapy procedure [facility] Start: 10-07-2022 Insertion of cathete r into peripheral vein [facility] Start: 10-07-2022 Introduction of urinary catheter [facility] Start: 10-07-2022 Measuring intake and output [facility] Start: 10-07-2022 Oxygen therapy [facility] Start: 10-07-2022 Providing care according to standard [facility] Start: 10-07-2022 Provision of activity privileges [facility] Start: 10-07-2022 Referral to gastroenterology service [facility] Start: 10-07-2022 End: 10-07-2022 [facility] Start: 10-07-2022 Following clinical pathway protocol [facility] Start: 10-07-2022 Admission procedure [facility] Alanine aminotransfe rase [Enzymatic activity/volume] in Serum or Plasma [facility] Work Phone: Albumin [Mass/volume ] in Serum or Plasma [facility] Work Phone: Alkaline phosphatase [Enzymatic activity/volume] in Serum or Plasma [facility] Work Phone: Anion gap measurement [facility] Work Phone: Aspartate aminotrans ferase [Enzymatic activity/volume] in Serum or Plasma [facility] Work Phone: Bilirubin, total measurement [facility] Work Phone: BUN/Creatinine ratio [facility] Work Phone: Calcium [Mass/volume ] in Serum or Plasma [facility] Work Phone: Carbon dioxide, tota l [Moles/volume] in Serum or Plasma [facility] Work Phone: Chloride [Moles/volu me] in Serum or Plasma [facility] Work Phone: Cholesterol [Mass/vo lume] in Serum or Plasma [facility] Work Phone: Cholesterol in HDL [ Mass/volume] in Serum or Plasma [facility] Work Phone: Cholesterol in LDL [ Mass/volume] in Serum or Plasma [facility] Work Phone: Creatinine [Moles/vo lume] in Serum or Plasma [facility] Work Phone: Glucose [Mass/volume ] in Serum or Plasma [facility] Work Phone: Hematocrit [Volume F raction] of Blood [facility] Work Phone: Hemoglobin [Mass/volume] in Blood [facility] Work Phone: Hepatitis A virus Ig M Ab [Presence] in Serum [facility] Work Phone: Hepatitis B core ant ibody measurement, IgM type [facility] Work Phone: Hepatitis B surface antigen measurement [facility] Work Phone: Hepatitis C antibody measurement [facility] Work Phone: Leukocytes [#/volume] in Blood [facility] Work Phone: Lipase measurement [facility] Work Phone: Mean corpuscular hem oglobin concentration determination [facility] Work Phone: Mean corpuscular hem oglobin determination [facility] Work Phone: Measurement of renal function [facility] Work Phone: Neutrophil count [facility] Work Phone: Neutrophil percent d ifferential count [facility] Work Phone: Patient Education [facility] Work Phone: Patient referral [facility] Work Phone: Platelets [#/volume] in Blood [facility] Work Phone: Potassium [Moles/vol ume] in Serum or Plasma [facility] Work Phone: Red blood cell count [facility] Work Phone: Red cell distributio n width determination [facility] Work Phone: Respiratory pathogen s DNA and RNA 12b panel - Unspecified specimen by ARLEN with probe detection [facility] Work Phone: Sodium [Moles/volume ] in Serum or Plasma [facility] Work Phone: Total protein measurement [facility] Work Phone: Triglycerides measurement [facility] Work Phone: Troponin T.cardiac [ Mass/volume] in Serum or Plasma by High sensitivity method [facility] Urea nitrogen [Mass/ volume] in Serum or Plasma [facility] Work Phone: VLDL cholesterol measurement [facility] Work Phone: Immunizations Immunization Date Immunization Notes Care Provider Fa cility 03-16-2024 tetanus toxoid, redu solo diphtheria toxoid, and acellular pertussis vaccine, adsorbed [facility] 01-10-2021 Covid (Moderna) [facility] Payers Date Payer Category Payer Private Health Insurance [id number] 2023 Self-pay [id number] 2014 [id number] Medicare [id number] Self-pay SELF PAY BY [employer] [id number] Unknown [id number] 62 Unknown [id number] 62 Unknown [id number] 62 Unknown [id number] 62 Unknown [id number] 62 Unknown [id number] 62 Unknown [id number] 62 Unknown [id number] 62 Unknown [id number] 62 Unknown [id number] 62 Unknown [id number] 62 Social History Date Type Detail Facility Start: 06-01-2021 End: 03-16-2024 Tobacco smoking status NHIS Unknown if ever smoked [facility] Start: 04-15-2021 None [facility] Start: 04-15-2021 Homeless [facility] Start: 06-01-2021 Non-smoker [facility] Start: 1940 Sex Assigned At Female [facility] Start: 03-16-2024 End: 05-20-2025 Tobacco smoking status NHIS Never smoked tobacco (finding) [facility] Goals Date Patient Goal Desired Activity /State Functional Status Date Assessment Result Facility 05-22-2025 Functional status [facility] Work Phone: 10-09-2022 Functional status [facility] Work Phone: Mental Status Date Assessment Result Facility 05-22-2025 Cognitive function Voice/Name [facility] Work Phone: 05-20-2025 Cognitive function Awake;Alert;A ppropriate;Fol lows Commands [facility] Work Phone: 12-29-2024 Cognitive function Voice/Name [facility] Work Phone: 07-02-2023 Cognitive function Voice/Name [facility] Work Phone: 12-18-2022 Cognitive function Voice/Name [facility] Work Phone: 10-09-2022 Cognitive function Voice/Name [facility] Work Phone: 06-19-2022 Cognitive function Awake;Alert;A ppropriate;Fol lows Commands [facility] Work Phone: 12-25-2021 Cognitive function Awake;Alert;A ppropriate;Fol lows Commands [facility] Work Phone: Clinical Notes 05-29-2021 to 05-22-2025 Note Date & Type Note Facility 05-22-2025 Discharge summary Note Date/Time May 22, 2025 9:27am [facility] Medical Records Department [address] [place] [address] Discharge Summary 05/22/2525 MR#: [id number] Acct: [id number] Name: EUGENIE MATA Rep #:[id number] : 1940 84 From: Miller Cross MD PCP: Dr. Liane Stephenson DO Status:ADM IN [facility] Providers Date of Admission: 05/20/25 Primary Care Physician: Dr. Liane Stephenson DO Consultations 05/20/25 19:55 Consult: Cardiology Routine Consulting Provider: [facility] Reason for Consult: Chest Pain, NSTEMI EMERGENT Consult: No MD Notified: Yes Date Notified: 05/20/25 Time Notified: 17:50 Method of Notification: ED Physician Initiated Reason For Visit: CHEST PAIN, NSTEMI Diagnosis Discharge Diagnosis (1) NSTEMI, initial episode of care: Status: Acute Code(s): I21.4 - Non-ST elevation (NSTEMI) myocardial infarction Plan Patient is an 84-year-old lady who presented to the emergency department with dizziness as well as chest pain radiating down the left breast and. Was found to have elevated troponin consistent with acute non-STEMI treatment initiated per protocol admitted to a monitored bed for further management 1. Acute non-STEMI ? Patient presented with chest pain as well as elevated troponin. Admitted to monitored bed treatment initiated with heparin in addition to Plavix beta-blockers and statin therapy. 2D echo ordered for regional wall motion abnormalities and consultation placed to cardiology definitive management deferred ? 05/22/2025; Case was discussed with Dr. Dominguez who placed you conservative management at this point. Plan is for patient to be discharged home on Imdur and metoprolol every morning as well add sublingual nitroglycerin as needed ? Echo obtained during patient hospital stay demonstrated Interpretation Summary Mild concentric left ventricular hypertrophy. The left ventricular ejection fraction is 65 %. Stage 1 diastolic dysfunction. Mild-Moderate (1-2+) posteriorly directed mitral valve insufficiency. Aortic valve sclerosis without stenosis. 2. Dyslipidemia ?Patient is on statin therapy, continued at home dose 3. Gout ? Patient is on allopurinol continue 4. Hypertension ? Blood pressure controlled, home medications continued with dose adjustment as needed 5. CKD ruled out 6. Dementia ? Patient is on memantine in addition to supportive 7. DVT prophylaxis ? Patient is on heparin Medications at Discharge Home Medications atorvastatin 40 mg tablet 40 mg PO QHS CHOLESTEROL 10/07/22 clopidogrel 75 mg tablet 75 mg PO DAILY BLOOD THINNER 10/07/22 ursodiol 250 mg tablet 250 mg PO BID #60 tabs 10/09/22 allopurinol 100 mg tablet 100 mg PO DAILY 05/20/25 memantine 10 mg tablet 10 mg PO BID 05/20/25 trandolapril 4 mg tablet 4 mg PO DAILY 05/20/25 isosorbide mononitrate 30 mg tablet,extended release 24 hr 30 mg PO DAILY #90 tabs 05/22/25 metoprolol tartrate 25 mg tablet 12.5 mg (1/2 x 25 mg) PO DAILY 90 days #45 tabs05/22/25 nitroglycerin 0.4 mg sublingual tablet 0.4 mg sublingual Q5M PRN CHEST PAIN #30 tabs 05/22/25 Hospital Course Summary of Care Provided Minutes Spent on Discharge: 35 Physical Exam Narrative GENERAL: cooperative HEENT: Atraumatic; normocephalic EYES; Anicteric, Normal Conjunctiva NECK; supple, normal thyroid, RESPIRATORY: Diminished to auscultation CARDIOVASCULAR: Regular S1 S2, GI: soft, normoactive bowel sounds, : No Renal angle tenderness; EXTREMITIES: No edema, no clubbing, MUSCULOSKELETAL: no muscle wasting NEURO: Awake; no lateralizing signs. SKIN: No Rash PSYCH; Flat affect Weight / BMI Weight Weight: 62.9 kg Body Mass Index (BMI) 29.0 ABG / Lab / Microbiology Data 05/22/25 06:31 05/22/25 06:31 Laboratory: Laboratory Results - last 24 hr 05/22/25 06:31: WBC 9.4, RBC 3.88 L, Hgb 12.0, Hct 35.7 L, MCV 92.0, MCH 30.9, MCHC 33.6, RDW Std Deviation 44.1 H, RDW Coeff of [place] 13.2, Plt Count 257, MPV 10.3, Immature Gran % (Auto) 0.400, Neut % (Auto) 61.5, Lymph % (Auto) 25.2, [place] % (Auto) 9.1, Eos % (Auto) 3.2, Baso % (Auto) 0.6, Absolute Neuts (auto) 5.8, Absolute Lymphs (auto) 2.37, Nucleated RBC % 0, Sodium 140, Potassium 3.6, Chloride 106, Carbon Dioxide 22.4, Anion Gap 11, BUN 22 H, Creatinine 1.03, Estim Creat Clear Calc 34.27 L, Est GFR (MDRD) Non-Af 54 L, BUN/Creatinine Ratio 21.1 H, Glucose 121 H, Calcium 8.8, Phosphorus 3.5, Magnesium 1.9 Radiography Diagnostic Testing: Radiology Impression Echocardiogram 05/21/25 05:55 Interpretation Summary Mild concentric left ventricular hypertrophy. The left ventricular ejection fraction is 65 %. Stage 1 diastolic dysfunction. Mild-Moderate (1-2+) posteriorly directed mitral valve insufficiency. Aortic valve sclerosis without stenosis. Ordering Physician: Ignacia Parsons Performed By: Norman Lockett RCS D/C Instructions Discharge Activity: Return to Normal Activity Call your doctor if you observe: Fever of 101 or Higher, Shortness of breath, Fainting spells and Chest pain DC O2, CPAP, BIPAP Needs Home O2 Discharge instructions: No Meaningful Use Info Meaningful Use Meaningful Use Diagnoses (Choose all that apply): AMI AMI/Post PCI/Angioplasty Aspirin given w/in 24hrs of arrival?: No Reason no aspirin w/in 24hrs of arrival?: Allergy ASA at discharge?: No Reason ASA not ordered:: Allergy Antiplatelet Therapy at Discharge:: Yes Statins at discharge?: Yes Laura/ARB at discharge?: Yes Beta Juan Diego at discharge?: Yes Done w/ Acute DC measure.: Yes Documented LVEF (%): 65 Discharge Plan Admission Admit Date/Time: 05/20/25 17:47 Attending Provider: Miller Cross Primary Care Provider: Liane Stephenson Consulting Providers: Ignacia Parsons; Sharon Dugan; Ade Ryder; Pola Dumont; Tavo Wilson; Caleb Guardado; Martinez Hoang; Hansel Vasques; Alcira Thakur; Luis Dominguez; Chica Peters; Martin Arias; Bryan Syed; Adelina Shahid DREDGE MASTER; Brigida Dixon PA; Preston Leiva Discharge Orders/Prescriptions Prescriptions: New isosorbide mononitrate 30 mg Tablet Extended Release 24 Hr 30 mg PO DAILY Qty: 90 0RF nitroglycerin 0.4 mg Tablet, Sublingual 0.4 mg sublingual Q5M PRN (Reason: CHEST PAIN) Qty: 30 0RF metoprolol tartrate 25 mg Tablet 12.5 mg PO DAILY 90 Days Qty: 45 0RF Continued atorvastatin 40 MG tablet 40 mg PO QHS clopidogrel 75 MG tablet 75 mg PO DAILY ursodiol 250 mg tablet 250 mg PO BID Qty: 60 0RF trandolapril 4 mg tablet 4 mg PO DAILY allopurinol 100 mg tablet 100 mg PO DAILY memantine 10 mg tablet 10 mg PO BID Discontinued hydrochlorothiazide 25 MG tablet 12.5 mg PO DAILY Patient Comments: blood pressure Referrals / Follow Up: Hansel Vasques MD [Med Staff - Active Staff] - Within 1 Month Liane Stephenson DO [Primary Care Provider] - Within 2 Weeks Disposition Disposition (needs filled in before D/C Order can be placed): Home, Self Care Charges/Coding Visit Charges Inpatient E&M: 42125 Disch Hosp >30min 05/22/25 3162 <Electronically signed by Miller Cross MD> Cosigner Signature (if applicable): CC: Dr. Miller Cross MD; Dr. Liane Stephenson DO~ Signed [facility] Work Phone: 1(810) 162-205007-15-2025 Progress note Author Miller Cross [facility] Note Date/Time May 22, 2025 9:18 am [facility] Medical Records Department [address] [place] [address] Progress Note - Hospitalist 05/22/25 0719 MR#: [id number] Acct: [id number] Name: EUGENIE MATA Rep #:[id number] : 1940 84 From: Miller Cross MD PCP: Dr. Liane Stephenson DO Status:ADM IN Location: [place] [address] Reason for Visit Chief Complaint: Chest pain Subjective Subjective Patient had an uneventful evening plan is for patient to be assessed for discharge. Objective Data Objective Data Vital Signs: Vital Signs Temp Pulse Resp BP Pulse Ox O2 Del Method 97.8 F 67 16 111/60 96 Room Air 05/22/25 03:49 05/22/25 03:49 05/22/25 03:49 05/22/25 03:49 05/22/25 03:49 05/22/25 03:49 Oxygen Delivery Method Room Air Weight: 62.9 kg Body Mass Index (BMI) 29.0 Intake & Output: Intake and Output for Last 24 Hours 05/20/25 05/21/25 05/22/25 23:59 23:59 23:59 Intake Total 1649.26 / 1649.26 Balance 1649.26 / 1649.26 Lab / Micro Data 05/22/25 06:31 05/22/25 06:31 Labs: Laboratory Results - last 24 hr 05/21/25 07:34: APTT 76.7 H Radiography Diagnostic Testing: Radiology Impression Echocardiogram 05/21/25 05:55 Interpretation Summary Mild concentric left ventricular hypertrophy. The left ventricular ejection fraction is 65 %. Stage 1 diastolic dysfunction. Mild-Moderate (1-2+) posteriorly directed mitral valve insufficiency. Aortic valve sclerosis without stenosis. Ordering Physician: Ignacia Parsons Performed By: Norman Lockett RCS Rhythm Strip Rhythm Strip: Sinus Rhythm Rate: 61 Physical Exam Narrative GENERAL: cooperative HEENT: Atraumatic; normocephalic EYES; Anicteric, Normal Conjunctiva NECK; supple, normal thyroid, RESPIRATORY: Diminished to auscultation CARDIOVASCULAR: Regular S1 S2, GI: soft, normoactive bowel sounds, : No Renal angle tenderness; EXTREMITIES: No edema, no clubbing, MUSCULOSKELETAL: no muscle wasting NEURO: Awake; no lateralizing signs. SKIN: No Rash PSYCH; Flat affect Assessment & Plan Assessment/Plan (1) NSTEMI, initial episode of care: PLAN: Plan Patient is an 84-year-old lady who presented to the emergency department with dizziness as well as chest pain radiating down the left breast and. Was found to have elevated troponin consistent with acute non-STEMI treatment initiated per protocol admitted to a monitored bed for further management 1. Acute non-STEMI ? Patient presented with chest pain as well as elevated troponin. Admitted to monitored bed treatment initiated with heparin in addition to Plavix beta- blockers and statin therapy. 2D echo ordered for regional wall motion abnormalities and consultation placed to cardiology definitive management deferred ? 05/22/2025; Case was discussed with Dr. Dominguez who placed you conservative management at this point. Plan is for patient to be discharged home on Imdur and metoprolol every morning as well add sublingual nitroglycerin as needed 2. Dyslipidemia ?Patient is on statin therapy, continued at home dose 3. Gout ? Patient is on allopurinol continue 4. Hypertension ? Blood pressure controlled, home medications continued with dose adjustment as needed 5. CKD ruled out 6. Dementia ? Patient is on memantine in addition to supportive 7. DVT prophylaxis ? Patient is on heparin 05/22/25 0918 <Electronically signed by Miller Cross MD> Cosigner Signature (if applicable): CC: ~ Signed [facility] Work Phone: 1(300) 677-818807-15-2025 Progress note Author Luis Dominguez [facility] Note Date/Time May 22, 2025 7:59 am [facility] Medical Records Department [address] [place] [address] Progress Note - Cardiology 05/22/25753 MR#: [id number] Acct: [id number] Name: EUGENIE MATA Rep #:[id number] : 1940 84 From: Luis Dominguez MD PCP: Dr. Liane Stephenson, DO Status:ADM IN Location: [place] [address] Subjective Subjective Patient evaluated seated in a chair. She is resting comfortably. Daughter is in the room reports that she was significantly confused overnight but seems to be reoriented fairly well this morning. Patient denies any recurrence of any left arm or chest discomfort. She is tolerating the beta-juan diego metoprolol tartrate 12.5 mg daily. Heart rate has been 61-68 and normal sinus rhythm. Objective Data Vital Signs: Vital Signs Temp Pulse Resp BP Pulse Ox O2 Del Method 97.8 F 67 16 111/60 96 Room Air 05/22/25 03:49 05/22/25 03:49 05/22/25 03:49 05/22/25 03:49 05/22/25 03:49 05/22/25 03:49 Oxygen Delivery Method Room Air Weight: 138 lb 10.732 oz Body Mass Index (BMI) 29.0 Intake & Output: Intake and Output for Last 24 Hours 05/20/25 05/21/25 05/22/25 23:59 23:59 23:59 Intake Total 1649.26 / 1649.26 Balance 1649.26 / 1649.26 Lab / Micro Data Attestation: I reviewed the patient's lab results. 05/22/25 06:31 05/22/25 06:31 Labs: Laboratory Results - last 24 hr 05/21/25 07:34: APTT 76.7 H 05/22/25 06:31: WBC 9.4, RBC 3.88 L, Hgb 12.0, Hct 35.7 L, MCV 92.0, MCH 30.9, MCHC 33.6, RDW Std Deviation 44.1 H, RDW Coeff of [place] 13.2, Plt Count 257, MPV 10.3, Immature Gran % (Auto) 0.400, Neut % (Auto) 61.5, Lymph % (Auto) 25.2, [place] % (Auto) 9.1, Eos % (Auto) 3.2, Baso % (Auto) 0.6, Absolute Neuts (auto) 5.8, Absolute Lymphs (auto) 2.37, Nucleated RBC % 0, Sodium 140, Potassium 3.6, Chloride 106, Carbon Dioxide 22.4, Anion Gap 11, BUN 22 H, Creatinine 1.03, Estim Creat Clear Calc 34.27 L, Est GFR (MDRD) Non-Af 54 L, BUN/Creatinine Ratio 21.1 H, Glucose 121 H, Calcium 8.8, Phosphorus 3.5, Magnesium 1.9 Rhythm Strip Rhythm Strip: Sinus Rhythm Rate: 60 Cardiology Labs/Tests 05/21/25 07:34: APTT 76.7 H 05/22/25 06:31: WBC 9.4, RBC 3.88 L, Hgb 12.0, Hct 35.7 L, MCV 92.0, MCH 30.9, MCHC 33.6, Plt Count 257, MPV 10.3, Immature Gran % (Auto) 0.400, Neut % (Auto) 61.5, Lymph % (Auto) 25.2, [place] % (Auto) 9.1, Eos % (Auto) 3.2, Baso % (Auto) 0.6, Absolute Neuts (auto) 5.8, Nucleated RBC % 0, Sodium 140, Potassium 3.6, Chloride 106, Carbon Dioxide 22.4, Anion Gap 11, BUN 22 H, Creatinine 1.03, Est GFR (MDRD) Non-Af 54 L, BUN/Creatinine Ratio 21.1 H, Glucose 121 H, Calcium 8.8,Phosphorus 3.5, Magnesium 1.9 Rhythm: EKG: ECHO: Stress Test: Cardiac Cath: PCI: CT Surgery: Holter monitor: EPS: PPM: CXR: Chest CT Scan: Radiography Diagnostic Testing: Radiology Impression Echocardiogram 05/21/25 05:55 Interpretation Summary Mild concentric left ventricular hypertrophy. The left ventricular ejection fraction is 65 %. Stage 1 diastolic dysfunction. Mild-Moderate (1-2+) posteriorly directed mitral valve insufficiency. Aortic valve sclerosis without stenosis. Ordering Physician: Ignacia Parsons Performed By: Norman Lockett RCS Physical Exam Const alert Constitutional Narrative: Still seems to be mildly confused. HEENT normocephalic Eyes EOMs intact bilaterally Neck no JVD Chest inspection of chest normal Resp normal respiratory effort Auscultation: diminished lung sounds right lower Cardio Rate: regular rate Rhythm: regular rhythm Heart Sounds: S1 normal and S2 normal; Negative for click, gallop or murmur Extremity no pedal edema Psych cooperative Psych Narrative: Seems to be mildly confused this morning. Assessment & Plan Assessment/Plan (1) NSTEMI, initial episode of care: PLAN: Patient denies any recurrence of chest or left arm discomfort. She is tolerating the beta-juan diego and Imdur without incident. We recommend given the patient's confusion and history of dementia from a cardiovascular standpoint the patient can be discharged home to the care of the family. Would recommend continuing the Imdur at 30 mg every morning metoprolol tartrate 12.5 mg every morning and utilizing sublingual nitroglycerin as needed. I went over the utilization of nitro sublingual with the patient's daughter. (2) HTN (hypertension): QUALIFIERS: Hypertension type: primary hypertension Qualified Code(s): I10 - Essential (primary) hypertension PLAN: Blood pressure is adequate controlled on her current medical therapy. (3) Dementia: QUALIFIERS: Dementia type: unspecified type Dementia severity: unspecified severity Dementia behavioral or psychological symptom: with other behavioral disturbance Qualified Code(s): F03.918 - Unspecified dementia, unspecified severity, with other behavioral disturbance PLAN: Further treatment of her dementia per the primary service. The patient did seem to be more confused this morning and had an episode of confusion overnight according to the daughter. PLAN: Plan 1. From a cardiovascular standpoint the patient can be discharged to home. 2. Continue Imdur 30 mg every morning, metoprolol 12.5 mg tartrate every morning and sublingual nitroglycerin as needed. 3. Patient should follow-up with the [facility] in 4 to 6 weeks and asneeded. Charges/Coding Visit Charges Inpatient E&M: 07542 Subs Hosp L2 05/22/25 0759 <Electronically signed by Luis Dominguez MD> Cosigner Signature (if applicable): CC: ~ Signed [facility] Work Phone: 1(450) [phone] Discharge summary [facility] Medical Records Department [address] [place] [address] Discharge Summary 05/22/25 0925 MR#: [id number] Acct: [id number] Name: EUGENIE MATA Rep #:[id number] : 1940 84 From: Miller Cross MD PCP: Dr. Liane Stephenson, Status:ADM IN Location: [place] [address] Providers Date of Admission: 05/20/25 Primary Care Physician: Dr. Liane Stephenson DO Consultations 05/20/25 19:55 Consult: Cardiology Routine Consulting Provider: [facility] Reason for Consult: Chest Pain, NSTEMI EMERGENT Consult: No MD Notified: Yes Date Notified: 05/20/25 Time Notified: 17:50 Method of Notification: ED Physician Initiated Reason For Visit: CHEST PAIN, NSTEMI Diagnosis Discharge Diagnosis (1) NSTEMI, initial episode of care: Status: Acute Code(s): I21.4 - Non-ST elevation (NSTEMI) myocardial infarction Plan Patient is an 84-year-old lady who presented to the emergency department with dizziness as well as chest pain radiating down the left breast and. Was found to have elevated troponin consistent with acute non-STEMI treatment initiated per protocol admitted to a monitored bed for further management 1. Acute non-STEMI ? Patient presented with chest pain as well as elevated troponin. Admitted to monitored bed treatment initiated with heparin in addition to Plavix beta- blockers and statin therapy. 2D echo ordered for regional wall motion abnormalities and consultation placed to cardiology definitive management defe rred ? 05/22/2025; Case was discussed with Dr. Dominguez who placed you conservative management at this point. Plan is for patient to be discharged home on Imdur and metoprolol every morning as well add sublingual nitroglycerin as needed ? Echo obtained during patient hospital stay demonstrated Interpretation Summary Mild concentric left ventricular hypertrophy. The left ventricular ejection fraction is 65 %. Stage1 diastolic dysfunction. Mild-Moderate (1-2+) posteriorly directed mitral valve insufficiency. Aortic valve sclerosis without stenosis. 2. Dyslipidemia ?Patient is on statin therapy, continued at home dose 3. Gout ? Patient is on allopurinol continue 4. Hypertension ? Blood pressure controlled, home medications continued with dose adjustment as needed 5. CKD ruled out 6. Dementia ? Patient is on memantine in addition to supportive 7. DVT prophylaxis ? Patient is on heparin Medications at Discharge Home Medications atorvastatin 40 mg tablet 40 mg PO QHS CHOLESTEROL 10/07/22 clopidogrel 75 mg tablet 75 mg PO DAILY BLOOD THINNER 10/07/22 ursodiol 250 mg tablet 250 mg PO BID #60 tabs 10/09/22 allopurinol 100 mg tablet 100 mg PO DAILY 05/20/25 memantine 10 mg tablet 10 mg PO BID 05/20/25 trandolapril 4 mg tablet 4 mg PO DAILY 05/20/25 isosorbide mononitrate 30 mg tablet,extended release 24 hr 30 mg PO DAILY #90 tabs 05/22/25 metoprolol tartrate 25 mg tablet 12.5 mg (1/2 x 25 mg) PO DAILY 90 days #45 tabs05/22/25 nitroglycerin 0.4 mg sublingual tablet 0.4 mg sublingual Q5M PRN CHEST PAIN #30 tabs 05/22/25 Hospital Course Summary of Care Provided Minutes Spent on Discharge: 35 Physical Exam Narrative GENERAL: cooperative HEENT: Atraumatic; normocephalic EYES; Anicteric, Normal Conjunctiva NECK; supple, normal thyroid, RESPIRATORY: Diminished to auscultation CARDIOVASCULAR: Regular S1 S2, GI: soft, normoactive bowel sounds, : No Renal angle tenderness; EXTREMITIES: No edema, no clubbing, MUSCULOSKELETAL: no muscle wasting NEURO: Awake; no lateralizing signs. SKIN: No Rash PSYCH; Flat affect Weight / BMI Weight Weight: 62.9 kg Body Mass Index (BMI) 29.0 ABG / Lab / Microbiology Data 05/22/25 06:31 05/22/25 06:31 Laboratory: Laboratory Results - last 24 hr 05/22/25 06:31: WBC 9.4, RBC 3.88 L, Hgb 12.0, Hct 35.7 L, MCV 92.0, MCH 30.9, MCHC 33.6, RDW Std Deviation 44.1 H, RDW Coeff of [place] 13.2, Plt Count 257, MPV 10.3, Immature Gran % (Auto) 0.400, Neut % (Auto) 61.5, Lymph % (Auto) 25.2, [place] % (Auto) 9.1, Eos % (Auto) 3.2, Baso % (Auto) 0.6, AbsoluteNeuts (auto) 5.8, Absolute Lymphs (auto) 2.37, Nucleated RBC % 0, Sodium 140, Potassium 3.6, Chloride 106, Carbon Dioxide 22.4, Anion Gap 11, BUN 22 H, Creatinine 1.03, Estim Creat Clear Calc 34.27 L, Est GFR (MDRD) Non-Af 54 L, BUN/Creatinine Ratio 21.1 H, Glucose 121 H, Calcium 8.8, Phosphorus 3.5, Magnesium 1.9 Radiography Diagnostic Testing: Radiology Impression Echocardiogram 05/21/25 05:55 Interpretation Summary Mild concentric left ventricular hypertrophy. The left ventricular ejection fraction is 65 %. Stage 1 diastolic dysfunction. Mild-Moderate (1-2+) posteriorly directed mitral valve insufficiency. Aortic valve sclerosis without stenosis. Ordering Physician: Ignacia Parsons Performed By: Norman Lockett RCS D/C Instructions Discharge Activity: Return to Normal Activity Call your doctor if you observe: Fever of 101 or Higher, Shortness of breath, Fainting spells and Chest pain DC O2, CPAP, BIPAP Needs Home O2 Discharge instructions: No Meaningful Use Info Meaningful Use Meaningful Use Diagnoses (Choose all that apply): AMI AMI/Post PCI/Angioplasty Aspirin given w/in 24hrs of arrival?: No Reason no aspirin w/in 24hrs of arrival?: Allergy ASA at discharge?: No Reason ASA not ordered:: Allergy Antiplatelet Therapy at Discharge:: Yes Statins at discharge?: Yes Laura/ARB at discharge?: Yes Beta Juan Diego at discharge?: Yes Done w/ Acute DC measure.: Yes Documented LVEF (%): 65 Discharge Plan Admission Admit Date/Time: 05/20/25 17:47 Attending Provider: Miller Cross Primary Care Provider: Liane Stephenson Consulting Providers: Ignacia Parsons; Sharon Dugan; Ade Ryder; Pola Dumont; Tavo Wilson; Caleb Guardado; Martinez Hoang; Hansel Vasques; Alcira Thakur; Luis Dominugez; Chica Peters; Martin Arias; Bryan Syed; Adelina Shahid DREDGE MASTER; Brigida Dixon PA; Preston Leiva Discharge Orders/Prescriptions Prescriptions: New isosorbide mononitrate 30 mg Tablet Extended Release 24 Hr 30 mg PO DAILY Qty: 90 0RF nitroglycerin 0.4 mg Tablet, Sublingual 0.4 mg sublingual Q5M PRN (Reason: CHEST PAIN) Qty: 30 0RF metoprolol tartrate 25 mg Tablet 12.5 mg PO DAILY 90 Days Qty: 45 0RF Continued atorvastatin 40 MG tablet 40 mg PO QHS clopidogrel 75 MG tablet 75 mg PO DAILY ursodiol 250 mg tablet 250 mg PO BID Qty: 60 0RF trandolapril 4 mg tablet 4 mg PO DAILY allopurinol 100 mg tablet 100 mg PO DAILY memantine 10 mg tablet 10 mg PO BID Discontinued hydrochlorothiazide 25 MG tablet 12.5 mg PO DAILY Patient Comments: blood pressure Referrals / Follow Up: Hansel Vasques MD [Med Staff - Active Staff] - Within 1 Month Liane Stephenson DO [Primary Care Provider] - Within 2 Weeks Disposition Disposition (needs filled in before D/C Order can be placed): Home, Self Care Charges/Coding Visit Charges Inpatient E&M: 23708 Disch Hosp >30min 05/22/25926 Cosigner Signature (if applicable): CC: Dr. Miller Cross MD; Dr. Liane Stephenson DO~ Signed [facility]07-15-2025 [facility] Medical Records Department [address] [place] [id number] Discharge Summary 05/22/25924 MR#: [id number] Acct: [id number] Name: EUGENIE MATA Rep #: [id number] : 1940 84 From: Miller Cross MD PCP: Dr. Liane Stephenson DO Status:ADM IN Location: [place] [address] Providers Date of Admission: 05/20/25 Primary Care Physician: Dr. Liane Stephenson DO Consultations 05/20/25 19:55 Consult: Cardiology Routine Consulting Provider: [facility] Reason for Consult: Chest Pain, NSTEMI EMERGENT Consult: No MD Notified: Yes Date Notified: 05/20/25 Time Notified: 17:50 Method of Notification: ED Physician Initiated Reason For Visit: CHEST PAIN, NSTEMI Diagnosis Discharge Diagnosis (1) NSTEMI, initial episode of care: Status: Acute Code(s): I21.4 - Non-ST elevation (NSTEMI) myocardial infarction Plan Patient is an 84-year-old lady who presented to the emergency department with dizziness as well as chest pain radiating down the left breast and. Was found to have elevated troponin consistent with acute non-STEMI treatment initiated per protocol admitted to a monitored bed for further management 1. Acute non-STEMI ??? Patient presented with chest pain as well as elevated troponin. Admitted to monitored bed treatment initiated with heparin in addition to Plavix beta-blockers and statin therapy. 2D echo ordered for regional wall motion abnormalities and consultation placed to cardiology definitive management deferred ??? 05/22/2025; Case was discussed with Dr. Dominguez who placed you conservative management at this point. Plan is for patient to be discharged home on Imdur and metoprolol every morning as well add sublingual nitroglycerin as needed ??? Echo obtained during patient hospital stay demonstrated Interpretation Summary Mild concentric left ventricular hypertrophy. The left ventricular ejection fraction is 65 %. Stage 1 diastolic dysfunction. Mild-Moderate (1-2+) posteriorly directed mitral valve insufficiency. Aortic valve sclerosis without stenosis. 2. Dyslipidemia ???Patient is on statin therapy, continued at home dose 3. Gout ??? Patient is on allopurinol continue 4. Hypertension ??? Blood pressure controlled, home medications continued with dose adjustment as needed 5. CKD ruled out 6. Dementia ??? Patient is on memantine in addition to supportive 7. DVT prophylaxis ??? Patient is on heparin Medications at Discharge Home Medications atorvastatin 40 mg tablet 40 mg PO QHS CHOLESTEROL 10/07/22 clopidogrel 75 mg tablet 75 mg PO DAILY BLOOD THINNER 10/07/22 ursodiol 250 mg tablet 250 mg PO BID #60 tabs 10/09/22 allopurinol 100 mg tablet 100 mg PO DAILY 05/20/25 memantine 10 mg tablet 10 mg PO BID 05/20/25 trandolapril 4 mg tablet 4 mg PO DAILY 05/20/25 isosorbide mononitrate 30 mg tablet,extended release 24 hr 30 mg PO DAILY #90 tabs 05/22/25 metoprolol tartrate 25 mg tablet 12.5 mg (1/2 x 25 mg) PO DAILY 90 days #45 tabs 05/22/25 nitroglycerin 0.4 mg sublingual tablet 0.4 mg sublingual Q5M PRN CHEST PAIN #30 tabs 05/22/25 Hospital Course Summary of Care Provided Minutes Spent on Discharge: 35 Physical Exam Narrative GENERAL: cooperative HEENT: Atraumatic; normocephalic EYES; Anicteric, Normal Conjunctiva NECK; supple, normal thyroid, RESPIRATORY: Diminished to auscultation CARDIOVASCULAR: Regular S1 S2, GI: soft, normoactive bowel sounds, : No Renal angle tenderness; EXTREMITIES: No edema, no clubbing, MUSCULOSKELETAL: no muscle wasting NEURO: Awake; no lateralizing signs. SKIN: No Rash PSYCH; Flat affect Weight / BMI Weight Weight: 62.9 kg Body Mass Index (BMI) 29.0 ABG / Lab / Microbiology Data 05/22/25 06:31 05/22/25 06:31 Laboratory: Laboratory Results - last 24 hr 05/22/25 06:31: WBC 9.4, RBC 3.88 L, Hgb 12.0, Hct 35.7 L, MCV 92.0, MCH 30.9, MCHC 33.6, RDW Std Deviation 44.1 H, RDW Coeff of [place] 13.2, Plt Count 257, MPV 10.3, Immature Gran % (Auto) 0.400, Neut % (Auto) 61.5, Lymph % (Auto) 25.2, [place] % (Auto) 9.1, Eos % (Auto) 3.2, Baso % (Auto) 0.6, Absolute Neuts (auto) 5.8, Absolute Lymphs (auto) 2.37, Nucleated RBC % 0, Sodium 140, Potassium 3.6, Chloride 106, Carbon Dioxide 22.4, Anion Gap 11, BUN 22 H, Creatinine 1.03, Estim Creat Clear Calc 34.27 L, Est GFR (MDRD) Non-Af 54 L, BUN/Creatinine Ratio 21.1 H, Glucose 121 H, Calcium 8.8, Phosphorus 3.5, Magnesium 1.9 Radiography Diagnostic Testing: Radiology Impression Echocardiogram 05/21/25 05:55 Interpretation Summary Mild concentric left ventricular hypertrophy. The left ventricular ejection fraction is 65 %. Stage 1 diastolic dysfunction. Mild-Moderate (1-2+) posteriorly directed mitral valve insufficiency. Aortic valve sclerosis without stenosis. (more content not included)...[facility]07-15-2025 Progress note [facility] Medical Records Department [address] [place] [address] Progress Note - Hospitalist 05/22/25 0719 MR#: [id number] Acct: [id number] Name: EUGENIE MATA Rep #:[id number] : 1940 84 From: Miller Cross MD PCP: Dr. Liane Stephenson, DO Status:ADM IN Location: [place] [address] Reason for Visit Chief Complaint: Chest pain Subjective Subjective Patient had an uneventful evening plan is for patient to be assessed for discharge. Objective Data Objective Data Vital Signs: Vital Signs Temp Pulse Resp BP Pulse Ox O2 Del Method 97.8 F 67 16 111/60 96 Room Air 05/22/25 03:49 05/22/25 03:49 05/22/25 03:49 05/22/25 03:49 05/22/25 03:49 05/22/25 03:49 Oxygen Delivery Method Room Air Weight: 62.9 kg Body Mass Index (BMI) 29.0 Intake & Output: Intake and Output for Last 24 Hours 05/20/25 05/21/25 05/22/25 23:59 23:59 23:59 Intake Total 1649.26 / 1649.26 Balance 1649.26 / 1649.26 Lab / Micro Data 05/22/25 06:31 05/22/25 06:31 Labs: Laboratory Results - last 24 hr 05/21/25 07:34: APTT 76.7 H Radiography Diagnostic Testing: Radiology Impression Echocardiogram 05/21/25 05:55 Interpretation Summary Mild concentric left ventricular hypertrophy. The left ventricular ejection fraction is 65 %. Stage 1 diastolic dysfunction. Mild-Moderate (1-2+) posteriorly directed mitral valve insufficiency. Aortic valve sclerosis without stenosis. Ordering Physician: Ignacia Parsons Performed By: Norman Lockett RCS Rhythm Strip Rhythm Strip: Sinus Rhythm Rate: 61 Physical Exam Narrative GENERAL: cooperative HEENT: Atraumatic; normocephalic EYES; Anicteric, Normal Conjunctiva NECK; supple, normal thyroid, RESPIRATORY: Diminished to auscultation CARDIOVASCULAR: Regular S1 S2, GI: soft, normoactive bowel sounds, : No Renal angle tenderness; EXTREMITIES: No edema, no clubbing, MUSCULOSKELETAL: no muscle wasting NEURO: Awake; no lateralizing signs. SKIN: No Rash PSYCH; Flat affect Assessment & Plan Assessment/Plan (1) NSTEMI, initial episode of care: PLAN: Plan Patient is an 84-year-old lady who presented to the emergency department with dizziness as well as chest pain radiating down the left breast and. Was found to have elevated troponin consistent with acute non-STEMI treatment initiated per protocol admitted to a monitored bed for further management 1. Acute non-STEMI ? Patient presented with chest pain as well as elevated troponin. Admitted to monitored bed treatment initiated with heparin in addition to Plavix beta- blockers and statin therapy. 2D echo ordered for regional wall motion abnormalities and consultation placed to cardiology definitive management defe rred ? 05/22/2025; Case was discussed with Dr. Dominguez who placed you conservative management at this point. Plan is for patient to be discharged home on Imdur and metoprolol every morning as well add sublingual nitroglycerin as needed 2. Dyslipidemia ?Patient is on statin therapy, continued at home dose 3. Gout ? Patient is on allopurinol continue 4. Hypertension ? Blood pressure controlled, home medications continued with dose adjustment as needed 5. CKD ruled out 6. Dementia ? Patient is on memantine in addition to supportive 7. DVT prophylaxis ? Patient is on heparin 05/22/25 0918 Cosigner Signature (if applicable): CC: ~ Signed [facility]07-15-2025 Progress note [facility] Medical Records Department [address] [place] [address] Progress Note - Cardiology 05/22/25 0754 MR#: [id number] Acct: [id number] Name: EUGENIE MATA Rep #:[id number] : 1940 84 From: Luis Dominguez MD PCP: Dr. Liane Stephenson, DO Status:ADM IN Location: [place] [address] Subjective Subjective Patient evaluated seated in a chair. She is resting comfortably. Daughter is in the room reports that she was significantly confused overnight but seems to be reoriented fairly well this morning. Patient denies any recurrence of any left arm or chest discomfort. She is tolerating the beta-juan diego metoprolol tartrate 12.5 mg daily. Heart rate has been 61-68 and normal sinus rhythm. Objective Data Vital Signs: Vital Signs Temp Pulse Resp BP Pulse Ox O2 Del Method 97.8 F 67 16 111/60 96 Room Air 05/22/25 03:49 05/22/25 03:49 05/22/25 03:49 05/22/25 03:49 05/22/25 03:49 05/22/25 03:49 Oxygen Delivery Method Room Air Weight: 138 lb 10.732 oz Body Mass Index (BMI) 29.0 Intake & Output: Intake and Output for Last 24 Hours 05/20/25 05/21/25 05/22/25 23:59 23:59 23:59 Intake Total 1649.26 / 1649.26 Balance 1649.26 / 1649.26 Lab / Micro Data Attestation: I reviewed the patient's lab results. 05/22/25 06:31 05/22/25 06:31 Labs: Laboratory Results - last 24 hr 05/21/25 07:34: APTT 76.7 H 05/22/25 06:31: WBC 9.4, RBC 3.88 L, Hgb 12.0, Hct 35.7 L, MCV 92.0, MCH 30.9, MCHC 33.6, RDW Std Deviation 44.1 H, RDW Coeff of [place] 13.2, Plt Count 257, MPV 10.3, Immature Gran % (Auto) 0.400, Neut % (Auto) 61.5, Lymph % (Auto) 25.2, [place] % (Auto) 9.1, Eos % (Auto) 3.2, Baso % (Auto) 0.6, AbsoluteNeuts (auto) 5.8, Absolute Lymphs (auto) 2.37, Nucleated RBC % 0, Sodium 140, Potassium 3.6, Chloride 106, Carbon Dioxide 22.4, Anion Gap 11, BUN 22 H, Creatinine 1.03, Estim Creat Clear Calc 34.27 L, Est GFR (MDRD) Non-Af 54 L, BUN/Creatinine Ratio 21.1 H, Glucose 121 H, Calcium 8.8, Phosphorus 3.5, Magnesium 1.9 Rhythm Strip Rhythm Strip: Sinus Rhythm Rate: 60 Cardiology Labs/Tests 05/21/25 07:34: APTT 76.7 H 05/22/25 06:31: WBC 9.4, RBC 3.88 L, Hgb 12.0, Hct 35.7 L, MCV 92.0, MCH 30.9, MCHC 33.6, Plt [place]559, MPV 10.3, Immature Gran % (Auto) 0.400, Neut % (Auto) 61.5, Lymph % (Auto) 25.2, [place] % (Auto)9.1, Eos % (Auto) 3.2, Baso % (Auto) 0.6, Absolute Neuts (auto) 5.8, Nucleated RBC % 0, Sodium 140,Potassium 3.6, Chloride 106, Carbon Dioxide 22.4, Anion Gap 11, BUN 22 H, Creatinine 1.03, Est GFR (MDRD) Non-Af 54 L, BUN/Creatinine Ratio 21.1 H, Glucose 121 H, Calcium 8.8,Phosphorus 3.5, Magnesium 1.9 Rhythm: EKG: ECHO: Stress Test: Cardiac Cath: PCI: CT Surgery: Holter monitor: EPS: PPM: CXR: Chest CT Scan: Radiography Diagnostic Testing: Radiology Impression Echocardiogram 05/21/25 05:55 Interpretation Summary Mild concentric left ventricular hypertrophy. The left ventricular ejection fraction is 65 %. Stage 1 diastolic dysfunction. Mild-Moderate (1-2+) posteriorly directed mitral valve insufficiency. Aortic valve sclerosis without stenosis. Ordering Physician: Ignacia Parsons Performed By: Norman Lockett RCS Physical Exam Const alert Constitutional Narrative: Still seems to be mildly confused. HEENT normocephalic Eyes EOMs intact bilaterally Neck no JVD Chest inspection of chest normal Resp normal respiratory effort Auscultation: diminished lung sounds right lower Cardio Rate: regular rate Rhythm: regular rhythm Heart Sounds: S1 normal and S2 normal; Negative for click, gallop or murmur Extremity no pedal edema Psych cooperative Psych Narrative: Seems to be mildly confused this morning. Assessment & Plan Assessment/Plan (1) NSTEMI, initial episode of care: PLAN: Patient denies any recurrence of chest or left arm discomfort. She is tolerating the beta-juan diego and Imdur without incident. We recommend given the patient's confusion and history of dementia from a cardiovascular standpointthe patient can be discharged home to the care of the family. Would recommend continuing the Imdur at 30 mg every morning metoprolol tartrate 12.5 mg every morning and utilizing sublingual nitroglycerin as needed. I went over the utilization of nitro sublingual with the patient's daughter. (2) HTN (hypertension): QUALIFIERS: Hypertension type: primary hypertension Qualified Code(s): I10 - Essential (primary) hypertension PLAN: Blood pressure is adequate controlled on her current medical therapy. (3) Dementia: QUALIFIERS: Dementia type: unspecified type Dementia severity: unspecified severity Dementia behavioral or psychological symptom: with other behavioral disturbance Qualified Code(s): F03.918 - Unspecified dementia, unspecified severity, with other behavioral disturbance PLAN: Further treatment of her dementia per the primary service. The patient did seem to be more confused this morning and had an episode of confusion overnight according to the daughter. PLAN: Plan 1. From a cardiovascular standpoint the patient can be discharged to home. 2. Continue Imdur 30 mg every morning, metoprolol 12.5 mg tartrate every morning and sublingual nitroglycerin as needed. 3. Patient should follow-up with the [facility] in 4 to 6 weeks and asneeded. Charges/Coding Visit Charges Inpatient E&M: 95727 Subs Hosp L2 05/22/25 0759 Cosigner Signature (if applicable): CC: ~ Signed [facility]07-14-2025 Consult note Author Luis Dominguez [facility] Note Date/Time May 21, 2025 10:5 5am [facility] Medical Records Department [address] [place] [address] Consultation - Cardiology 05/21/25 1036 MR#: [id number] Acct: [id number] Name: EUGENIE MATA Rep #:[id number] : 1940 84 From: Luis Dominguez MD PCP: Dr. Liane Stephenson, DO Status:ADM IN Location: [place] [address] Assessment & Plan Assessment/Plan (1) NSTEMI, initial episode of care: PLAN: Patient's ECG is consistent with a right bundle branch block left anteriorfascicular block. She is in sinus bradycardia at 56 bpm there is no evolution over the last 24 hours. The patient does have enzymes 105?170. Preliminarily her echocardiogram shows normal LV function. The patient does have dementia. Idid discuss treatment options including invasive evaluation with the patient andher family members. The patient does have arthritic changes in her left shoulder which is where the symptoms started. It is difficult to tell with accuracy how symptomatic the patient really is. The family noted that they were so uncertain they waited 2 to 3 days to have her evaluated. I would recommend that we try to treat this medically. We will add long-acting nitrates to control her blood pressure utilize a beta-juan diego as tolerated continue the antiplatelet therapy with clopidogrel and aggressive statin therapywith atorvastatin. Would recommend changing the metoprolol to tartrate to 12.5 mg daily starting tomorrow morning. Will hold it for heart rate less than 55. (2) Dementia: QUALIFIERS: Dementia type: unspecified type Dementia severity: unspecified severity Dementia behavioral or psychological symptom: with other behavioral disturbance Qualified Code(s): F03.918 - Unspecified dementia, unspecified severity, with other behavioral disturbance PLAN: Patient's dementia is being evaluated and treated by the primary service. (3) HTN (hypertension): QUALIFIERS: Hypertension type: primary hypertension Qualified Code(s): I10 - Essential (primary) hypertension PLAN: Blood pressure appears to be adequately controlled on her current medical therapy. (4) HLD (hyperlipidemia): QUALIFIERS: Hyperlipidemia type: pure hypercholesterolemia Qualified Code(s): E78.00 - Pure hypercholesterolemia, unspecified PLAN: Lipids are well-controlled with a total cholesterol of 136, LDL 61, and HDL 53, with triglycerides of 112 on her current atorvastatin 40 mg daily. PLAN: Plan 1. Add Imdur 30 mg every morning starting today. 2. Will change metoprolol to tartrate to 12.5 mg daily hold for heart rate lessthan 55. 3. Continue Plavix as antiplatelet therapy. 4. Will slowly progress activities as tolerated. 5. Discontinue IV heparin. 6. If unable to control symptoms that appear to be ischemic in etiology we willhave to consider proceeding with left heart catheterization. Stenting will be an issue given she is intolerant of aspirin. HPI Consult Data Date of Consult: 05/21/25 HPI Narrative Reason for Consultation: Chest pain HPI Narrative: EUGENIE MATA, is a 84 F who presents with a 2 to 3-day history of left shoulder and left chest discomfort radiating around under her left breast. The patient also notes tenderness to palpation in her anterior left chest as well as bilateral aspect of her chest wall. She does note that the symptoms resolve when she sits and is still in the recur when she is up and moving about. Patient's troponins were 105/153/170. ECG shows sinus bradycardia at 56 bpm with a right bundle branch block and left anterior fascicular block on 05/20. There was no change on the serial ECG done 05/21. Her telemetry now shows normalsinus rhythm at 61 bpm. Currently the patient is pain-free. An echocardiogram was being performed whichprimarily revealed normal LV function. The patient also has a history of dementia and is on medical therapy. Patient has a history of hyperlipidemia hypertension chronic kidney disease but her GFR is 62 on admission. The patientcarries a history of aspirin allergy of an unknown event. The patient is not allergic to iodine. Patient's blood pressure has been treated with hydrochlorothiazide and she is on clopidogrel in her home environment as well. She also is tolerating atorvastatin 40 mg daily in her home environment. Triglycerides were 112, total cholesterol 136, LDL 61, and HDL 53. Her BNP was normal on admission at 943 for her age. The patient and 3 family members were present during the interview and examination. They were all in agreement with her dementia issues. [facility] Medical History (Updated 05/21/25 @ 10:[address] Luis Dominguez MD) HLD (hyperlipidemia) HTN (hypertension) Dementia Gout Overweight Chronic kidney disease (CKD), stage III (moderate) Stenosis of retinal artery Macular degeneration Home Medications ?Medication ?Instructions ?Recorded ?Last Taken ?Type hydrochlorothiazide 25 mg tablet 12.5 mg PO DAILY diur etic 12/17/15 10/06/22 History atorvastatin 40 mg tablet 40 mg PO QHS CHOLESTEROL 10/06/22 History clopidogrel 75 mg tablet 75 mg PO DAILY BLOOD THINNER 10/07/22 10/06/22 History ursodiol 250 mg tablet 250 mg PO BID #60 tabs 10/09 Unknown Rx allopurinol 100 mg tablet 100 mg PO DAILY 05/20/25 Unk nown History memantine 10 mg tablet 10 mg PO BID 05/20/25 Unknow n History trandolapril 4 mg tablet 4 mg PO DAILY 05/20/25 Unkno wn History Allergy/AdvReac Type Severity Reaction Status Date / Time aspirin AdvReac Unknown Verified 05/20/25 20:25 Family History Father Myocardial infarction Brother Myocardial infarction CVA (cerebral vascular accident) Mother Heart disease Surgical History H/O: hysterectomy History of knee replacement procedure of left knee History of spinal fusion Hx of cholecystectomy Social History household members: spouse Smoking Status: Never smoker alcohol intake: never substance use type: does not use ROS Constitutional Constitutional: Reports as per HPI Eyes Eyes: Reports systems reviewed and no addt'l complaints, except as documented ENT HEENT: Reports systems reviewed and no addt'l complaints, except as documented Cardiovascular Cardiovascular: Reports as per HPI Respiratory/Chest Respiratory/Chest: Reports as per HPI Gastrointestinal Gastrointestinal: Reports systems reviewed and no addt'l complaints, except as documented Genitourinary Genitourinary: Reports as per HPI Musculoskeletal Musculoskeletal: Reports systems reviewed and no addt'l complaints, except as documented Integumentary Integumentary: Reports systems reviewed and no addt'l complaints, except as documented Neurologic Neurologic: Reports as per HPI Psychiatric Psychiatric: Reports as per HPI Endocrine Endocrinology: Reports systems reviewed and no addt'l complaints, except as documented Hematologic/Lymphatic Hematologic/Lymphatic: Reports systems reviewed and no addt'l complaints, exceptas documented Allergic/Immunologic Allergic/Immunologic: Reports as per HPI Physical Exam Const alert Constitutional Narrative: Appears to be oriented x 3 but has a problem with short-term memory of initiation of her symptoms. She does seem to be consistent with the descriptions. HEENT normocephalic Eyes EOMs intact bilaterally Neck no carotid bruits Chest inspection of chest normal Resp normal respiratory effort and clear to auscultation bilaterally Cardio Rate: regular rate Rhythm: regular rhythm Heart Sounds: S1 normal, S2 normal and murmur systolic II/ harsh left sternal border; Negative for click or gallop GI soft to palpation Extremity no pedal edema Psych Psych Narrative: The patient appears to have a self-awareness of her memory deficits. Risk Stratification Risk Stratification Applicable: Yes Age >/= 65: Yes >/= 3 CAD Risk Factors (HTN, HLD, DM, family hx of CAD, or current smoker): Yes Aspirin Use in the Past 7 Days: No Severe Angina (>/= episodes in 24 hours): No EKG ST Changes >/= 0.5mm: No Positive Cardiac Marker: Yes PHYLICIA Risk Stratification Score: 3 PHYLICIA % Risk: 13% Risk Charges/Coding Visit Charges Inpatient E&M: 67718 Init Hosp L2 Objective Data Vital Signs: Vital Signs Temp Pulse Resp BP Pulse Ox O2 Del Method 98.2 F 58 L 17 127/61 H 98 Room Air 05/21/25 08:39 05/21/25 09:38 05/21/25 08:39 05/21/25 08:39 05/21/25 09:38 05/21/25 09:38 Oxygen Delivery Method Room Air Weight: 135 lb 9.349 oz Body Mass Index (BMI) 28.3 Intake & Output: Intake and Output for Last 24 Hours 05/19/25 05/20/25 05/21/25 23:59 23:59 23:59 Intake Total 389.53 / 389.53 Balance 389.53 / 389.53 Lab / Micro Data Attestation: I reviewed the patient's lab results. 05/21/25 03:53 05/21/25 03:53 Labs: Laboratory Results - last 24 hr 05/20/25 14:25: WBC 9.9, RBC 4.30, Hgb 13.3, Hct 40.0, MCV 93.0, MCH 30.9, MCHC 33.3, RDW Std Deviation 43.8, RDW Coeff of [place] 12.8, Plt Count 262, MPV 10.4, Immature Gran % (Auto) 0.300, Neut % (Auto) 60.8, Lymph % (Auto) 28.8, [place] % (Auto) 7.2, Eos % (Auto) 2.4, Baso % (Auto) 0.5, Absolute Neuts (auto) 6.0, Absolute Lymphs (auto) 2.84, Nucleated RBC % 0, PT 12.1, INR 0.9, APTT 27.6, D-Dimer Quant (PE/DVT) 0.27, Sodium 134, Potassium 3.4, Chloride 97 L, Carbon Dioxide 24.3, Anion Gap 13, BUN 18, Creatinine 1.09, Estim Creat Clear Calc 32.48 L, Est GFR (MDRD) Non-Af 50 L, BUN/Creatinine Ratio 16.6, Glucose 130 H, Calcium 9.5, Troponin T High Sens 105 H*, NT pro BNP II 942 05/20/25 17:00: Magnesium 1.9, Troponin T Hi Sens 2 Hr 153 H* 05/20/25 18:30: Troponin T Hi Sens 4Hr 170 H* 05/20/25 23:23: APTT 194.8 H* 05/21/25 03:53: WBC 7.3, RBC 3.98 L, Hgb 12.7, Hct 37.2, MCV 93.5, MCH 31.9, MCHC 34.1, RDW Std Deviation 43.8, RDW Coeff of [place] 12.8, Plt Count 243, MPV 10.2, Immature Gran % (Auto) 0.300, Neut % (Auto) 50.4, Lymph % (Auto) 35.9, [place] % (Auto) 8.6, Eos % (Auto) 3.8, Baso % (Auto) 1.0, Absolute Neuts (auto) Not Reportable, Sodium 140, Potassium 3.9, Chloride 106, Carbon Dioxide 22.5, Anion Gap 12, BUN 19, Creatinine 0.92, Estim Creat Clear Calc 37.96 L, Est GFR (MDRD) Non-Af 62, BUN/Creatinine Ratio 20.4 H, Glucose 87, Calcium 9.2, Total Bilirubin 0.28, AST 23, ALT 8, Alkaline Phosphatase 57, Total Protein 6.2, Albumin 3.6, Globulin 2.6, Albumin/Globulin Ratio 1.4, Triglycerides 112, Cholesterol 136, LDL Cholesterol, Calc 61, VLDL Cholesterol 22, HDL Cholesterol 53, Cholesterol/HDL Ratio 2.57 05/21/25 07:34: APTT 76.7 H Rhythm Strip Rhythm Strip: Sinus Rhythm Rate: 61 Cardiology Labs/Tests 05/20/25 14:25: WBC 9.9, RBC 4.30, Hgb 13.3, Hct 40.0, MCV 93.0, MCH 30.9, MCHC 33.3, Plt Count 262, MPV 10.4, Immature Gran % (Auto) 0.300, Neut % (Auto) 60.8,Lymph % (Auto) 28.8, [place] % (Auto) 7.2, Eos % (Auto) 2.4, Baso % (Auto) 0.5, Absolute Neuts (auto) 6.0, Nucleated RBC % 0, PT 12.1, INR 0.9, APTT 27.6, D-Dimer Quant (PE/DVT) 0.27, Sodium 134, Potassium 3.4, Chloride 97 L, Carbon Dioxide 24.3, Anion Gap 13, BUN 18, Creatinine 1.09, Est GFR (MDRD) Non-Af 50 L,BUN/Creatinine Ratio 16.6, Glucose 130 H, Calcium 9.5 05/20/25 17:00: Magnesium 1.9 05/20/25 23:23: APTT 194.8 H* 05/21/25 03:53: WBC 7.3, RBC 3.98 L, Hgb 12.7, Hct 37.2, MCV 93.5, MCH 31.9, MCHC 34.1, Plt Count 243, MPV 10.2, Immature Gran % (Auto) 0.300, Neut % (Auto) 50.4, Lymph % (Auto) 35.9, [place] % (Auto) 8.6, Eos % (Auto) 3.8, Baso % (Auto) 1.0, Absolute Neuts (auto) Not Reportable, Sodium 140, Potassium 3.9, Chloride 106, Carbon Dioxide 22.5, Anion Gap 12, BUN 19, Creatinine 0.92, Est GFR (MDRD) Non-Af 62, BUN/Creatinine Ratio 20.4 H, Glucose 87, Calcium 9.2, Total Bilirubin0.28, Triglycerides 112, Cholesterol 136, VLDL Cholesterol 22, HDL Cholesterol 53, Cholesterol/HDL Ratio 2.57 05/21/25 07:34: APTT 76.7 H Rhythm: EKG: ECHO: Stress Test: Cardiac Cath: PCI: CT Surgery: Holter monitor: EPS: PPM: CXR: Chest CT Scan: Radiography Diagnostic Testing: Radiology Impression Chest X-Ray 05/20/25 14:58 IMPRESSION: No focal consolidations. Reading Location: [facility] Shoulder X-Ray 05/20/25 15:59 IMPRESSION: No acute osseous abnormality of the left shoulder. 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 Reading Location: [facility] 05/21/25 1055 <Electronically signed by Luis Dominguez MD> Cosigner Signature (if applicable): CC: Dr. Liane Stephenson, DO~ Signed [facility] Work Phone: [phone]) [phone] Progress note Author Miller Cross [facility] Note Date/Time May 21, 2025 10:0 3am [facility] Medical Records Department [address] [place] [address] Progress Note - Hospitalist 05/21/25 0956 MR#: [id number] Acct: [id number] Name: EUGENIE MATA Rep #:[id number] : 1940 84 From: Miller Cross MD PCP: Dr. Liane Stephenson, DO Status:ADM IN Location: [place] [address] Reason for Visit Chief Complaint: Chest pain Subjective Subjective Patient is an 84-year-old lady who presented to the emergency department with dizziness as well as chest pain radiating down the left breast and. Was found to have elevated troponin consistent with acute non-STEMI treatment initiated per protocol admitted to a monitored bed for further management Objective Data Objective Data Vital Signs: Vital Signs Temp Pulse Resp BP Pulse Ox O2 Del Method 98.2 F 58 L 17 127/61 H 98 Room Air 05/21/25 08:39 05/21/25 09:38 05/21/25 08:39 05/21/25 08:39 05/21/25 09:38 05/21/25 09:38 Oxygen Delivery Method Room Air Weight: 61.5 kg Body Mass Index (BMI) 28.3 Intake & Output: Intake and Output for Last 24 Hours 05/19/25 05/20/25 05/21/25 23:59 23:59 23:59 Intake Total 389.53 / 389.53 Balance 389.53 / 389.53 Lab / Micro Data 05/21/25 03:53 05/21/25 03:53 Labs: Laboratory Results - last 24 hr 05/20/25 14:25: WBC 9.9, RBC 4.30, Hgb 13.3, Hct 40.0, MCV 93.0, MCH 30.9, MCHC 33.3, RDW Std Deviation 43.8, RDW Coeff of Ans[place] 12.8, Plt Count 262, MPV 10.4, Immature Gran % (Auto) 0.300, Neut % (Auto) 60.8, Lymph % (Auto) 28.8, [place] % (Auto) 7.2, Eos % (Auto) 2.4, Baso % (Auto) 0.5, Absolute Neuts (auto) 6.0, Absolute Lymphs (auto) 2.84, Nucleated RBC % 0, PT 12.1, INR 0.9, APTT 27.6, D-Dimer Quant (PE/DVT) 0.27, Sodium 134, Potassium 3.4, Chloride 97 L, Carbon Dioxide 24.3, Anion Gap 13, BUN 18, Creatinine 1.09, Estim Creat Clear Calc 32.48 L, Est GFR (MDRD) Non-Af 50 L, BUN/Creatinine Ratio 16.6, Glucose 130 H, Calcium 9.5, Troponin T High Sens 105 H*, NT pro BNP II 942 05/20/25 17:00: Magnesium 1.9, Troponin T Hi Sens 2 Hr 153 H* 05/20/25 18:30: Troponin T Hi Sens 4Hr 170 H* 05/20/25 23:23: APTT 194.8 H* 05/21/25 03:53: WBC 7.3, RBC 3.98 L, Hgb 12.7, Hct 37.2, MCV 93.5, MCH 31.9, MCHC 34.1, RDW Std Deviation 43.8, RDW Coeff of [place] 12.8, Plt Count 243, MPV 10.2, Immature Gran % (Auto) 0.300, Neut % (Auto) 50.4, Lymph % (Auto) 35.9, [place] % (Auto) 8.6, Eos % (Auto) 3.8, Baso % (Auto) 1.0, Absolute Neuts (auto) Not Reportable, Sodium 140, Potassium 3.9, Chloride 106, Carbon Dioxide 22.5, Anion Gap 12, BUN 19, Creatinine 0.92, Estim Creat Clear Calc 37.96 L, Est GFR (MDRD) Non-Af 62, BUN/Creatinine Ratio 20.4 H, Glucose 87, Calcium 9.2, Total Bilirubin 0.28, AST 23, ALT 8, Alkaline Phosphatase 57, Total Protein 6.2, Albumin 3.6, Globulin 2.6, Albumin/Globulin Ratio 1.4, Triglycerides 112, Cholesterol 136, LDL Cholesterol, Calc 61, VLDL Cholesterol 22, HDL Cholesterol 53, Cholesterol/HDL Ratio 2.57 05/21/25 07:34: APTT 76.7 H Radiography Diagnostic Testing: Radiology Impression Chest X-Ray 05/20/25 14:58 IMPRESSION: No focal consolidations. Reading Location: [facility] Shoulder X-Ray 05/20/25 15:59 IMPRESSION: No acute osseous abnormality of the left shoulder. 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 Reading Location: [facility] Physical Exam Narrative GENERAL: cooperative HEENT: Atraumatic; normocephalic EYES; Anicteric, Normal Conjunctiva NECK; supple, normal thyroid, RESPIRATORY: Diminished to auscultation CARDIOVASCULAR: Regular S1 S2, GI: soft, normoactive bowel sounds, : No Renal angle tenderness; EXTREMITIES: No edema, no clubbing, MUSCULOSKELETAL: no muscle wasting NEURO: Awake; no lateralizing signs. SKIN: No Rash PSYCH; Flat affect Assessment & Plan Assessment/Plan (1) NSTEMI, initial episode of care: PLAN: Plan Patient is an 84-year-old lady who presented to the emergency department with dizziness as well as chest pain radiating down the left breast and. Was found to have elevated troponin consistent with acute non-STEMI treatment initiated per protocol admitted to a monitored bed for further management 1. Acute non-STEMI ? Patient presented with chest pain as well as elevated troponin. Admitted to monitored bed treatment initiated with heparin in addition to Plavix beta- blockers and statin therapy. 2D echo ordered for regional wall motion abnormalities and consultation placed to cardiology definitive management deferred 2. Dyslipidemia ?Patient is on statin therapy, continued at home dose 3. Gout ? Patient is on allopurinol continue 4. Hypertension ? Blood pressure controlled, home medications continued with dose adjustment as needed 5. CKD ruled out 6. Dementia ? Patient is on memantine in addition to supportive 7. DVT prophylaxis ? Patient is on heparin Charges/Coding Visit Charges Inpatient E&M: 26312 Subs Hosp L2 05/21/25 1003 <Electronically signed by Miller Cross MD> Cosigner Signature (if applicable): CC: ~ Signed [facility] Work Phone: [phone]) 312-571607-14-2025 Consult note [facility] Medical Records Department [address] [place] [address] Consultation - Cardiology 05/21/25 1036 MR#: [id number] Acct: [id number] Name: EUGENIE MATA Rep #:[id number] : 1940 84 From: Luis Dominguez MD PCP: Dr. Liane Stephenson, DO Status:ADM IN [facility] Assessment & Plan Assessment/Plan (1) NSTEMI, initial episode of care: PLAN: Patient's ECG is consistent with a right bundle branch block left anteriorfascicular block. She is in sinus bradycardia at 56 bpm there is no evolution over the last 24 hours. The patient does have enzymes 105?170. Preliminarily her echocardiogram shows normal LV function. The patient does have dementia. Idid discuss treatment options including invasive evaluation with the patient andher family members. The patient does have arthritic changes in her left shoulder which is where the symptoms started. It is difficult to tell with accuracy how symptomatic the patient really is. The family noted that they were so uncertain they waited 2 to 3 days to have her evaluated. I would recommend that we try to treat this medically. We will add long-acting nitrates to control her blood pressure utilize a beta-juan diego as tolerated continue the antiplatelet therapy with clopidogrel and aggressive statin therapywith atorvastatin. Would recommend changing the metoprolol to tartrate to 12.5 mg daily starting tomorrow morning. Will hold it for heart rate less than 55. (2) Dementia: QUALIFIERS: Dementia type: unspecified type Dementia severity: unspecified severity Dementia behavioral or psychological symptom: with other behavioral disturbance Qualified Code(s): F03.918 - Unspecified dementia, unspecified severity, with other behavioral disturbance PLAN: Patient's dementia is being evaluated and treated by the primary service. (3) HTN (hypertension): QUALIFIERS: Hypertension type: primary hypertension Qualified Code(s): I10 - Essential (primary) hypertension PLAN: Blood pressure appears to be adequately controlled on her current medical therapy. (4) HLD (hyperlipidemia): QUALIFIERS: Hyperlipidemia type: pure hypercholesterolemia Qualified Code(s): E78.00 - Pure hypercholesterolemia, unspecified PLAN: Lipids are well-controlled with a total cholesterol of 136, LDL 61, and HDL 53, with triglycerides of 112 on her current atorvastatin 40 mg daily. PLAN: Plan 1. Add Imdur 30 mg every morning starting today. 2. Will change metoprolol to tartrate to 12.5 mg daily hold for heart rate lessthan 55. 3. Continue Plavix as antiplatelet therapy. 4. Will slowly progress activities as tolerated. 5. Discontinue IV heparin. 6. If unable to control symptoms that appear to be ischemic in etiology we willhave to consider proceeding with left heart catheterization. Stenting will be an issue given she is intolerant of aspirin. HPI Consult Data Date of Consult: 05/21/25 HPI Narrative Reason for Consultation: Chest pain HPI Narrative: EUGENIE MATA, is a 84 F who presents with a 2 to 3-day history of left shoulder and left chest discomfort radiating around under her left breast. The patient also notes tenderness to palpation in heranterior left chest as well as bilateral aspect of her chest wall. She does note that the symptoms resolve when she sits and is still in the recur when she is up and moving about. Patient's troponins were 105/153/170. ECG shows sinus bradycardia at 56 bpm with a right bundle branch block and left anterior fascicular block on 05/20. There was no change on the serial ECG done 05/21. Her telemetry now shows normalsinus rhythm at 61 bpm. Currently the patient is pain-free. An echocardiogram was being performed whichprimarily revealed normal LV function. The patient also has a history of dementia and is on medical therapy. Patient hasa history of hyperlipidemia hypertension chronic kidney disease but her GFR is 62 on admission. The patientcarries a history of aspirin allergy of an unknown event. The patient is not allergic to iodine. Patient's blood pressure has been treated with hydrochlorothiazide and she is on clopidogrel inher home environment as well. She also is tolerating atorvastatin 40 mg daily in her home environment. Triglycerides were 112, total cholesterol 136, LDL 61, and HDL 53. Her BNP was normal on admission at 942 for her age. The patient and 3 family members were present during the interview and examination. They were all in agreement with her dementia issues. [facility] Medical History (Updated 05/21/25 @ 10:[address] Luis Dominguez MD) HLD (hyperlipidemia) HTN (hypertension) Dementia Gout Overweight Chronic kidney disease (CKD), stage III (moderate) Stenosis of retinal artery Macular degeneration Home Medications ?Medication ?Instructions ?Recorded ?Last Taken ?Type hydrochlorothiazide 25 mg tablet 12.5 mg PO DAILY diur etic 12/17/15 10/06/22 History atorvastatin 40 mg tablet 40 mg PO QHS CHOLESTEROL 10/06/22 History clopidogrel 75 mg tablet 75 mg PO DAILY BLOOD THINNER 10/07/22 10/06/22 History ursodiol 250 mg tablet 250 mg PO BID #60 tabs 10/09 Unknown Rx allopurinol 100 mg tablet 100 mg PO DAILY 05/20/25 Unk nown History memantine 10 mg tablet 10 mg PO BID 05/20/25 Unknow n History trandolapril 4 mg tablet 4 mg PO DAILY 05/20/25 Unkno wn History Allergy/AdvReac Type Severity Reaction Status Date / Time aspirin AdvReac Unknown Verified 05/20/25 20:25 Family History Father Myocardial infarction Brother Myocardial infarction CVA (cerebral vascular accident) Mother Heart disease Surgical History H/O: hysterectomy History of knee replacement procedure of left knee History of spinal fusion Hx of cholecystectomy Social History household members: spouse Smoking Status: Never smoker alcohol intake: never substance use type: does not use ROS Constitutional Constitutional: Reports as per HPI Eyes Eyes: Reports systems reviewed and no addt'l complaints, except as documented ENT HEENT: Reports systems reviewed and no addt'l complaints, except as documented Cardiovascular Cardiovascular: Reports as per HPI Respiratory/Chest Respiratory/Chest: Reports as per HPI Gastrointestinal Gastrointestinal: Reports systems reviewed and no addt'l complaints, except as documented Genitourinary Genitourinary: Reports as per HPI Musculoskeletal Musculoskeletal: Reports systems reviewed and no addt'l complaints, except as documented Integumentary Integumentary: Reports systems reviewed and no addt'l complaints, except as documented Neurologic Neurologic: Reports as per HPI Psychiatric Psychiatric: Reports as per HPI Endocrine Endocrinology: Reports systems reviewed and no addt'l complaints, except as documented Hematologic/Lymphatic Hematologic/Lymphatic: Reports systems reviewed and no addt'l complaints, exceptas documented Allergic/Immunologic Allergic/Immunologic: Reports as per HPI Physical Exam Const alert Constitutional Narrative: Appears to be oriented x 3 but has a problem with short-term memory of initiation of her symptoms. She does seem to be consistent with the descriptions. HEENT normocephalic Eyes EOMs intact bilaterally Neck no carotid bruits Chest inspection of chest normal Resp normal respiratory effort and clear to auscultation bilaterally Cardio Rate: regular rate Rhythm: regular rhythm Heart Sounds: S1 normal, S2 normal and murmur systolic II/ harsh left sternal border; Negative for click or gallop GI soft to palpation Extremity no pedal edema Psych Psych Narrative: The patient appears to have a self-awareness of her memory deficits. Risk Stratification Risk Stratification Applicable: Yes Age >/= 65: Yes >/= 3 CAD Risk Factors (HTN, HLD, DM, family hx of CAD, or current smoker): Yes Aspirin Use in the Past 7 Days: No Severe Angina (>/= episodes in 24 hours): No EKG ST Changes >/= 0.5mm: No Positive Cardiac Marker: Yes PHYLICIA Risk Stratification Score: 3 PHYLICIA % Risk: 13% Risk Charges/Coding Visit Charges Inpatient E&M: 79684 Init Hosp L2 Objective Data Vital Signs: Vital Signs Temp Pulse Resp BP Pulse Ox O2 Del Method 98.2 F 58 L 17 127/61 H 98 Room Air 05/21/25 08:39 05/21/25 09:38 05/21/25 08:39 05/21/25 08:39 05/21/25 09:38 05/21/25 09:38 Oxygen Delivery Method Room Air Weight: 135 lb 9.349 oz Body Mass Index (BMI) 28.3 Intake & Output: Intake and Output for Last 24 Hours 05/19/25 05/20/25 05/21/25 23:59 23:59 23:59 Intake Total 389.53 / 389.53 Balance 389.53 / 389.53 Lab / Micro Data Attestation: I reviewed the patient's lab results. 05/21/25 03:53 05/21/25 03:53 Labs: Laboratory Results - last 24 hr 05/20/25 14:: WBC 9.9, RBC 4.30, Hgb 13.3, Hct 40.0, MCV 93.0, MCH 30.9, MCHC 33.3, RDW Std Deviation 43.8, RDW Coeff of [place] 12.8, Plt Count 262, MPV 10.4, Immature Gran % (Auto) 0.300, Neut % (Auto) 60.8, Lymph % (Auto) 28.8, [place] % (Auto) 7.2, Eos % (Auto) 2.4, Baso % (Auto) 0.5, Absolute Neuts(auto) 6.0, Absolute Lymphs (auto) 2.84, Nucleated RBC % 0, PT 12.1, INR 0.9, APTT 27.6, D- Dimer Quant (PE/DVT) 0.27, Sodium 134, Potassium 3.4, Chloride 97 L, Carbon Dioxide 24.3, Anion Gap 13, BUN 18, Creatinine 1.09, Estim Creat Clear Calc 32.48 L, Est GFR (MDRD) Non-Af 50 L, BUN/Creatinine Ratio 16.6, Glucose 130 H, Calcium 9.5, Troponin T High Sens 105 H*, NT pro BNP II 942 05/20/25 17:00: Magnesium 1.9, Troponin T Hi Sens 2 Hr 153 H* 05/20/25 18:30: Troponin T Hi Sens 4Hr 170 H* 05/20/25 23:23: APTT 194.8 H* 05/21/25 03:53: WBC 7.3, RBC 3.98 L, Hgb 12.7, Hct 37.2, MCV 93.5, MCH 31.9, MCHC 34.1, RDW Std Deviation 43.8, RDW Coeff of [place] 12.8, Plt Count 243, MPV 10.2, Immature Gran % (Auto) 0.300, Neut % (Auto) 50.4, Lymph % (Auto) 35.9, [place] % (Auto) 8.6, Eos % (Auto) 3.8, Baso % (Auto) 1.0, Absolute Neuts (auto) Not Reportable, Sodium 140, Potassium 3.9, Chloride 106, Carbon Dioxide 22.5, Anion Gap 12, BUN 19, Creatinine 0.92, Estim Creat Clear Calc 37.96 L, Est GFR (MDRD) Non-Af 62, BUN/Creatinine Ratio 20.4 H, Glucose 87, Calcium 9.2, Total Bilirubin 0.28, AST 23, ALT 8, Alkaline Phosphatase 57,Total Protein 6.2, Albumin 3.6, Globulin 2.6, Albumin/Globulin Ratio 1.4, Triglycerides 112, Cholesterol 136, LDL Cholesterol, Calc 61, VLDL Cholesterol 22, HDL Cholesterol 53, Cholesterol/HDL Ratio 2.57 05/21/25 07:34: APTT 76.7 H Rhythm Strip Rhythm Strip: Sinus Rhythm Rate: 61 Cardiology Labs/Tests 05/20/25 14:25: WBC 9.9, RBC 4.30, Hgb 13.3, Hct 40.0, MCV 93.0, MCH 30.9, MCHC 33.3, Plt Count 262, MPV 10.4, Immature Gran % (Auto) 0.300, Neut % (Auto) 60.8,Lymph % (Auto) 28.8, [place] % (Auto) 7.2,Eos % (Auto) 2.4, Baso % (Auto) 0.5, Absolute Neuts (auto) 6.0, Nucleated RBC % 0, PT 12.1, INR 0.9, APTT 27.6, D- Dimer Quant (PE/DVT) 0.27, Sodium 134, Potassium 3.4, Chloride 97 L, Carbon Dioxide 24.3, Anion Gap 13, BUN 18, Creatinine 1.09, Est GFR (MDRD) Non-Af 50 L,BUN/Creatinine Ratio 16.6, Glucose 130 H, Calcium 9.5 05/20/25 17:00: Magnesium 1.9 05/20/25 23:23: APTT 194.8 H* 05/21/25 03:53: WBC 7.3, RBC 3.98 L, Hgb 12.7, Hct 37.2, MCV 93.5, MCH 31.9, MCHC 34.1, Plt Count 243, MPV 10.2, Immature Gran % (Auto) 0.300, Neut % (Auto) 50.4, Lymph % (Auto) 35.9, [place] % (Auto) 8.6, Eos % (Auto) 3.8, Baso % (Auto) 1.0, Absolute Neuts (auto) Not Reportable, Sodium 140, Potassium3.9, Chloride 106, Carbon Dioxide 22.5, Anion Gap 12, BUN 19, Creatinine 0.92, Est GFR (MDRD) Non-Af 62, BUN/Creatinine Ratio 20.4 H, Glucose 87, Calcium 9.2, Total Bilirubin0.28, Triglycerides 112, Cholesterol 136, VLDL Cholesterol 22, HDL Cholesterol 53, Cholesterol/HDL Ratio 2.57 05/21/25 07:34: APTT 76.7 H Rhythm: EKG: ECHO: Stress Test: Cardiac Cath: PCI: CT Surgery: Holter monitor: EPS: PPM: CXR: Chest CT Scan: Radiography Diagnostic Testing: Radiology Impression Chest X-Ray 05/20/25 14:58 IMPRESSION: No focal consolidations. Reading Location: [id number] Shoulder X-Ray 05/20/25 15:59 IMPRESSION: No acute osseous abnormality of the left shoulder. 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 Reading Location: [id number] 05/21/25 1055 Cosigner Signature (if applicable): CC: Dr. Liane Stephenson, DO~ Signed [facility]07-14-2025 Progress note [facility] Medical Records Department [address] [place] [address] Progress Note - Hospitalist 05/21/25 0956 MR#: [id number] Acct: [id number] Name: EUGENIE MATA Rep #:[id number] : 1940 84 From: Miller Cross MD PCP: Dr. Liane Stephenson DO Status:ADM IN Location: [place] [address] Reason for Visit Chief Complaint: Chest pain Subjective Subjective Patient is an 84-year-old lady who presented to the emergency department with dizziness as well as chest pain radiating down the left breast and. Was found to have elevated troponin consistent with acute non-STEMI treatment initiated per protocol admitted to a monitored bed for further management Objective Data Objective Data Vital Signs: Vital Signs Temp Pulse Resp BP Pulse Ox O2 Del Method 98.2 F 58 L 17 127/61 H 98 Room Air 05/21/25 08:39 05/21/25 09:38 05/21/25 08:39 05/21/25 08:39 05/21/25 09:38 05/21/25 09:38 Oxygen Delivery Method Room Air Weight: 61.5 kg Body Mass Index (BMI) 28.3 Intake & Output: Intake and Output for Last 24 Hours 05/19/25 05/20/25 05/21/25 23:59 23:59 23:59 Intake Total 389.53 / 389.53 Balance 389.53 / 389.53 Lab / Micro Data 05/21/25 03:53 05/21/25 03:53 Labs: Laboratory Results - last 24 hr 05/20/25 14:25: WBC 9.9, RBC 4.30, Hgb 13.3, Hct 40.0, MCV 93.0, MCH 30.9, MCHC 33.3, RDW Std Deviation 43.8, RDW Coeff of Ans[place] 12.8, Plt Count 262, MPV 10.4, Immature Gran % (Auto) 0.300, Neut % (Auto) 60.8, Lymph % (Auto) 28.8, [place] % (Auto) 7.2, Eos % (Auto) 2.4, Baso % (Auto) 0.5, Absolute Neuts(auto) 6.0, Absolute Lymphs (auto) 2.84, Nucleated RBC % 0, PT 12.1, INR 0.9, APTT 27.6, D- Dimer Quant (PE/DVT) 0.27, Sodium 134, Potassium 3.4, Chloride 97 L, Carbon Dioxide 24.3, Anion Gap 13, BUN 18, Creatinine 1.09, Estim Creat Clear Calc 32.48 L, Est GFR (MDRD) Non-Af 50 L, BUN/Creatinine Ratio 16.6, Glucose 130 H, Calcium 9.5, Troponin T High Sens 105 H*, NT pro BNP II 942 05/20/25 17:00: Magnesium 1.9, Troponin T Hi Sens 2 Hr 153 H* 05/20/25 18:30: Troponin T Hi Sens 4Hr 170 H* 05/20/25 23:23: APTT 194.8 H* 05/21/25 03:53: WBC 7.3, RBC 3.98 L, Hgb 12.7, Hct 37.2, MCV 93.5, MCH 31.9, MCHC 34.1, RDW Std Deviation 43.8, RDW Coeff of [place] 12.8, Plt Count 243, MPV 10.2, Immature Gran % (Auto) 0.300, Neut % (Auto) 50.4, Lymph % (Auto) 35.9, [place] % (Auto) 8.6, Eos % (Auto) 3.8, Baso % (Auto) 1.0, Absolute Neuts (auto) Not Reportable, Sodium 140, Potassium 3.9, Chloride 106, Carbon Dioxide 22.5, Anion Gap 12, BUN 19, Creatinine 0.92, Estim Creat Clear Calc 37.96 L, Est GFR (MDRD) Non-Af 62, BUN/Creatinine Ratio 20.4 H, Glucose 87, Calcium 9.2, Total Bilirubin 0.28, AST 23, ALT 8, Alkaline Phosphatase 57,Total Protein 6.2, Albumin 3.6, Globulin 2.6, Albumin/Globulin Ratio 1.4, Triglycerides 112, Cholesterol 136, LDL Cholesterol, Calc 61, VLDL Cholesterol 22, HDL Cholesterol 53, Cholesterol/HDL Ratio 2.57 05/21/25 07:34: APTT 76.7 H Radiography Diagnostic Testing: Radiology Impression Chest X-Ray 05/20/25 14:58 IMPRESSION: No focal consolidations. Reading Location: [id number] Shoulder X-Ray 05/20/25 15:59 IMPRESSION: No acute osseous abnormality of the left shoulder. 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 Reading Location: [facility] Physical Exam Narrative GENERAL: cooperative HEENT: Atraumatic; normocephalic EYES; Anicteric, Normal Conjunctiva NECK; supple, normal thyroid, RESPIRATORY: Diminished to auscultation CARDIOVASCULAR: Regular S1 S2, GI: soft, normoactive bowel sounds, : No Renal angle tenderness; EXTREMITIES: No edema, no clubbing, MUSCULOSKELETAL: no muscle wasting NEURO: Awake; no lateralizing signs. SKIN: No Rash PSYCH; Flat affect Assessment & Plan Assessment/Plan (1) NSTEMI, initial episode of care: PLAN: Plan Patient is an 84-year-old lady who presented to the emergency department with dizziness as well as chest pain radiating down the left breast and. Was found to have elevated troponin consistent with acute non-STEMI treatment initiated per protocol admitted to a monitored bed for further management 1. Acute non-STEMI ? Patient presented with chest pain as well as elevated troponin. Admitted to monitored bed treatment initiated with heparin in addition to Plavix beta- blockers and statin therapy. 2D echo ordered for regional wall motion abnormalities and consultation placed to cardiology definitive management defe rred 2. Dyslipidemia ?Patient is on statin therapy, continued at home dose 3. Gout ? Patient is on allopurinol continue 4. Hypertension ? Blood pressure controlled, home medications continued with dose adjustment as needed 5. CKD ruled out 6. Dementia ? Patient is on memantine in addition to supportive 7. DVT prophylaxis ? Patient is on heparin Charges/Coding Visit Charges Inpatient E&M: 23155 Subs Hosp L2 05/21/25 1003 Cosigner Signature (if applicable): CC: ~ Signed [facility]07-13-2025 Discharge summary Author Devin Piña [facility] Note Date/Time May 20, 2025 6:28 pm [facility] [facility] Medical [facility] Department [address] [place] [address] Emergency Department Summary 05/20/25 MR#: [id number] Acct: [id number] Name: EUGENIE MATA Rep #:[id number] : 1940 84 From: Devin Watkins PCP: Dr. Liane Stephenson, DO Status:ADM IN Location: [address] History of Present Illness Chief Complaint: Chest Pain [facility] Medical History (Updated 05/20/25 @ 17:[address] Ignacia Parsons MD) Dementia Gout Overweight Chronic kidney disease (CKD), stage III (moderate) Stenosis of retinal artery Macular degeneration HLD (hyperlipidemia) HTN (hypertension) Home Medications ?Medication ?Instructions ?Recorded ?Last Taken ?Type hydrochlorothiazide 25 mg tablet 12.5 mg PO DAILY diur etic 12/17/15 10/06/22 History atorvastatin 40 mg tablet 40 mg PO QHS CHOLESTEROL 10/06/22 History clopidogrel 75 mg tablet 75 mg PO DAILY BLOOD THINNER 10/07/22 10/06/22 History ursodiol 250 mg tablet 250 mg PO BID #60 tabs 10/09 Unknown Rx allopurinol 100 mg tablet 100 mg PO DAILY 05/20/25 Unk nown History memantine 10 mg tablet 10 mg PO BID 05/20/25 Unknow n History trandolapril 4 mg tablet 4 mg PO DAILY 05/20/25 Unkno wn History Allergy/AdvReac Type Severity Reaction Status Date / Time aspirin AdvReac Unknown Verified 05/20/25 13:52 Family History Father Myocardial infarction Brother Myocardial infarction CVA (cerebral vascular accident) Mother Heart disease Surgical History H/O: hysterectomy History of knee replacement procedure of left knee History of spinal fusion Hx of cholecystectomy Social History household members: spouse Smoking Status: Never smoker alcohol intake: never substance use type: does not use EXAM Physical Exam Const Vital Signs: 05/20/25 13:50 05/20/25 14:30 05/20/25 14:45 Temperature 97.8 F Temperature Source Oral Pulse Rate 72 59 L 61 Respiratory Rate 18 17 19 H Blood Pressure 181/99 H 137/48 H 100/65 Blood Pressure Mean 126 65 76 Pulse Ox 98 100 98 Oxygen Delivery Method Room Air 05/20/25 14:56 05/20/25 15:26 05/20/25 15:35 Temperature Temperature Source Pulse Rate 60 Respiratory Rate 17 23 H Blood Pressure 107/78 113/75 Blood Pressure Mean 86 83 Pulse Ox 100 100 Oxygen Delivery Method Room Air 05/20/25 15:40 05/20/25 15:45 05/20/25 15:50 Temperature Temperature Source Pulse Rate 60 59 L 61 Respiratory Rate 16 17 21 H Blood Pressure 105/60 108/60 102/54 L Blood Pressure Mean 74 75 70 Pulse Ox 95 98 99 Oxygen Delivery Method 05/20/25 16:00 05/20/25 16:10 05/20/25 16:15 Temperature Temperature Source Pulse Rate 55 L 54 L 55 L Respiratory Rate 20 H 15 17 Blood Pressure 115/57 L 115/57 L 116/58 L Blood Pressure Mean 76 76 75 Pulse Ox 100 100 99 Oxygen Delivery Method Room Air 05/20/25 16:20 05/20/25 16:25 05/20/25 16:30 Temperature Temperature Source Pulse Rate 54 L 55 L 55 L Respiratory Rate 14 17 24 H Blood Pressure 118/59 L 97/76 112/63 Blood Pressure Mean 75 83 71 Pulse Ox 100 100 100 Oxygen Delivery Method 05/20/25 16:35 05/20/25 16:40 05/20/25 16:45 Temperature Temperature Source Pulse Rate 55 L 56 L 54 L Respiratory Rate 24 H 18 19 H Blood Pressure 109/95 H 107/64 110/59 L Blood Pressure Mean 102 78 74 Pulse Ox 100 100 100 Oxygen Delivery Method 05/20/25 16:50 05/20/25 16:55 05/20/25 17:00 Temperature Temperature Source Pulse Rate 55 L 55 L Respiratory Rate 18 19 H Blood Pressure 109/60 110/56 L 110/73 Blood Pressure Mean 75 71 84 Pulse Ox 98 99 99 Oxygen Delivery Method 05/20/25 17:05 05/20/25 17:26 Temperature 98.2 F Temperature Source Pulse Rate 59 L 59 L Respiratory Rate 27 H 23 H Blood Pressure 113/70 122/86 H Blood Pressure Mean 75 98 Pulse Ox 100 100 Oxygen Delivery Method [facility] [place] Narrative Medical decision making narrative: HISTORY OF PRESENT ILLNESS: Chief complaint: Dizziness, chest pain 84-year-old female history of hyperlipidemia, hypertension, presents with chest pain. She notes Left-sided chest pain that began this morning approximate 8 AM approximately 5 hours prior to arrival. She also notes some dizziness and lightheadedness as well. Pain is not exertional. Is not ripping or tearing. The patient denies recent surgery in the last 4 weeks or immobilization in the last 3 days, denies previous diagnosis of DVT or PE, hemoptysis, unilateral leg swelling or malignancy with treatment the last 6 months or palliative. No estrogen use noted. Patient denies sudden onset of pain, no tearing sensation, no migratory symptoms, no new numbness, weakness or loss of sensation. Patient denies family history or personal history of Connective tissue disorders (Marfan's Syndrome, Aristeo Danlos etc) REVIEW OF SYSTEMS: Pertinent positives: Pertinent negatives: [] PHYSICAL EXAM: Nursing triage notes reviewed, Vital signs reviewed Constitutional: please see mdm HENT: MMM Eyes: Pupils equal round and reactive to light, Extraocular muscles intact Neck: No stridor, no JVD, full neck ROM Lungs: Clear to auscultation, No wheezing or rales. No increased work of breathing, no conversational dyspnea, no accessory muscle use, no nasal flaring. No respiratory distress noted Heart: Regular rate and rhythm, No murmurs, No rubs and No gallops, 2+ distal pulses (radial, femoral, posterior tibial) in all extremities Abdomen: Soft, there is no tenderness, rigidity, rebound or guarding, no obvious peritoneal signs, no palpable pulsatile abdominal masses, no auscultated abdominal bruit : No CVAT Extremities: No edema Neuro: alert and oriented x3, neuro exam at baseline, cranial nerves II through XII are intact. No pain with extraocular muscle movement. There is negative test of skew. 5 of 5 strength in upper and lower extremities in flexion extension. Intact sensation to light touch in upper and lower extremity dermatomes. No truncal or extremity ataxia. No dysdiadochokinesia. Normal gait. 2+ reflexes in upper and lower extremities. No meningeal signs. Negative Babinski. NIH of 0. Skin: No rash or lesions noted MEDICAL DECISION MAKING: Chief Complaint: [facility] External records reviewed: Reviewed prior cardiovascular testing: Reviewed echocardiogram from 2019 which showed ejection fraction 65% Factors affecting care: As per [facility] Social determinants of health: Denies illicit drug use such as cocaine or methamphetamine History obtained from others: none Consults: Cardiology (Dr. Ryder) -recommended aspirin, heparin, statin and possible cath in the morning. Discussed case Internal medicine (Dr. Parsons)?recommended admission to PCU full MDM Narrative: The patient was initially hypertensive with blood pressure 181/99 otherwise afebrile and nontoxic-appearing. Exam without focal cardiopulmonary normalities. TTP over left shoulder. I considered the following differential diagnosis: ACS, arrhythmia, anemia, electrolyte disturbance, pneumothorax, pneumonia, PE, aortic dissection I obtained a broad lab and imaging to further determine if the patient was suffering from a life-threatening etiology. ALL IMAGES (IF OBTAINED) HAVE BEEN PERSONALLY REVIEWED AND INTERPRETED BY MYSELF. EKG with sinus bradycardia rate 59, left axis deviation, right bundle branch block, QTc 427, no obvious to Initial troponin elevated consistent with myocardial ischemia CBC without leukocytosis, severe anemia, no thrombocytopenia. No coagulopathy D-dimer negative making VTE and aortic dissection less like BNP within normal limit BMP without evidence of significant electrolyte abnormalities, no anion gap, no acute kidney injury. I have personally reviewed the patient's chest x-ray. Chest x-ray is unremarkable for pulmonary edema, pneumothorax, pneumonia or focal cardiopulmonary abnormality. X-ray left shoulder was read reviewed personally myself showed no evidence of obvious bony abnormality Discussed with cardiology recommended admission and possible catheterization urgently. Patient remained chest pain-free. Repeat troponin continued to uptrend. Patient was started on heparin. On reevaluation patient main chest pain free. Blood pressure improved to 122/86. Discussed with Dr. Parsons he recommended PCU full admission The patient and/or family, caregivers express understanding. The patient and/or family, caregivers agrees with the plan. Shared decision making: I will have a discussion with the patient and or visitors regarding risk/benefits of further testing or admission. They will be made aware of of the risk/benefits inherent in this decision they will be given the opportunity to voice understanding. Total critical care time today provided was at least 35 minutes. This excludes separately billable procedures. Critical care time (if documented) is secondary to the patient having high probability of clinically significant/life threatening deterioration in the patient's condition which required my urgent intervention. Impression: 1. Acute chest pain 2. NSTEMI 3. History of hypertension Dispo: Admit to PCU This note was generated with [employer] dictation software. It may contain incorrect words, spelling, and punctuation that were not noted in review of the chart prior to signing. Lab Data Labs: Laboratory Results - last 24 hr 05/20/25 05/20/25 14:25 17:00 WBC 9.9 RBC 4.30 Hgb 13.3 Hct 40.0 MCV 93.0 MCH 30.9 MCHC 33.3 RDW Std Deviation 43.8 RDW Coeff of [place] 12.8 Plt Count 262 MPV 10.4 Immature Gran % (Auto) 0.300 Neut % (Auto) 60.8 Lymph % (Auto) 28.8 [place] % (Auto) 7.2 Eos % (Auto) 2.4 Baso % (Auto) 0.5 Absolute Neuts (auto) 6.0 Absolute Lymphs (auto) 2.84 Nucleated RBC % 0 PT 12.1 INR 0.9 APTT 27.6 D-Dimer Quant (PE/DVT) 0.27 Sodium 134 Potassium 3.4 Chloride 97 L Carbon Dioxide 24.3 Anion Gap 13 BUN 18 Creatinine 1.09 Estim Creat Clear Calc 32.48 L Est GFR (MDRD) Non-Af 50 L BUN/Creatinine Ratio 16.6 Glucose 130 H Calcium 9.5 Troponin T High Sens 105 H* Troponin T Hi Sens 2 Hr 153 H* NT pro BNP II 942 Radiography Diagnostic Testing: Clinical Impression(s) from Imaging Studies Chest X-Ray 05/20/25 14:58 IMPRESSION: No focal consolidations. Reading Location: [id number] Shoulder X-Ray 05/20/25 15:59 IMPRESSION: No acute osseous abnormality of the left shoulder. 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 Reading Location: [facility] Discharge Plan Triage Chief Complaint: Chest Pain ED Provider: Devin Piña Dx/Rx/DC Orders Primary Care Provider: Liane Stephenson What to do if you have Problems For any increased pain, shortness of breath, bleeding, nausea or vomiting, chest pain, or any unexpected problems, contact your Primary Care Provider. Call [facility] ([phone]) or report to the closest Emergency Room. Call 911 if necessary. 05/20/25 1828 <Electronically signed by Devin Piña DO> Cosigner Signature (if applicable): CC: Dr. Liane Stephenson DO ~ Signed [facility] Work Phone: 1(100) [phone] History and physical note Author Ignacia Parsons [facility] Note Date/Time May 20, 2025 6:28 pm [facility] Medical Records Department [address] [place] [address] H&P Exam - Hospitalist 05/20/25 1726 MR#: [id number] Acct: [id number] Name: EUGENIE MATA Rep #:[id number] : 1940 84 From: Ignacia Parsons MD PCP: Dr. Liane Stephenson DO Status:ADM IN Location: [place] [address] HPI - General General Date of Admission: 05/20/25 Date of Service: 05/20/25 Chief Complaint: Chest pain HPI Narrative The patient is an 84 y/o F w/ PMHx: Gout, Dementia unclear type with unclear behavioral disturbance history, Hx prior retinal artery narrowing, Overweight, Macular degeneration, CKD stage III unclear subtype per GFR trending, HTN, HLD who presents to the [facility] ED on 05/20/2025 with history of onset of chest discomfort specifically left-sided beginning on day of presentation at approximately 8 AM with associated dizziness, lightheadedness occurring at rest and also with activity prompting eventual ED evaluation. Patient noted initially the chest discomfort actually started 2 to 3 days prior but was really primarily in the left shoulder and was intermittent not specifically worse with movement but then on day of presentation became more left-sided just underneath her left breast with the associated lightheadedness and dizziness but no associated dyspnea, diaphoresis, nausea or emesis. She notes at its worst it was rated 8 out of 10 in severity and described as an aching sensation. She notes currently in the ED her chest pain is since resolved. Her family does report that she would intermittently have lower bloodpressures. 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 In the ED patient administered heparin bolus and maintained on heparin drip. [facility] Medical History Dementia Gout Overweight Chronic kidney disease (CKD), stage III (moderate) Stenosis of retinal artery Macular degeneration HLD (hyperlipidemia) HTN (hypertension) Home Medications ?Medication ?Instructions ?Recorded ?Last Taken ?Type hydrochlorothiazide 25 mg tablet 12.5 mg PO DAILY diur etic 12/17/15 10/06/22 History atorvastatin 40 mg tablet 40 mg PO QHS CHOLESTEROL 10/06/22 History clopidogrel 75 mg tablet 75 mg PO DAILY BLOOD THINNER 10/07/22 10/06/22 History ursodiol 250 mg tablet 250 mg PO BID #60 tabs 10/09 Unknown Rx allopurinol 100 mg tablet 100 mg PO DAILY 05/20/25 Unk nown History memantine 10 mg tablet 10 mg PO BID 05/20/25 Unknow n History trandolapril 4 mg tablet 4 mg PO DAILY 05/20/25 Unkno wn History Allergy/AdvReac Type Severity Reaction Status Date / Time aspirin AdvReac Unknown Verified 05/20/25 13:52 Family History Father Myocardial infarction Brother Myocardial infarction CVA (cerebral vascular accident) Mother Heart disease Surgical History H/O: hysterectomy History of knee replacement procedure of left knee History of spinal fusion Hx of cholecystectomy Social History household members: spouse Smoking Status: Never smoker alcohol intake: never substance use type: does not use ROS ROS Narrative Admission Review of Systems: CONSTITUTIONAL: No weight loss, fever, chills, + weakness or fatigue. HEENT: + Lightheadedness, dizziness. Eyes: No visual loss, blurred vision, double vision or yellow sclerae. Ears, Nose, Throat: No hearing loss, sneezing, congestion, runny nose or sore throat. SKIN: No rash or itching, lesions, wounds. CARDIOVASCULAR: + Chest pain, lightheadedness, dizziness. Palpitations, edema, orthopnea, syncopal events. RESPIRATORY: No shortness of breath, cough or sputum, wheezing, hemoptysis. GASTROINTESTINAL: No anorexia, nausea, vomiting or diarrhea, abdominal pain, melena, BRBPR. GENITOURINARY: No dysuria, frequency, urgency or retention. NEUROLOGICAL: + Lightheadedness, dizziness. No headache, syncope, paralysis, ataxia, numbness or tingling in the extremities, focal weakness, change in bowelor bladder control, seizure. MUSCULOSKELETAL: + muscle, back pain, joint pain or stiffness. HEMATOLOGIC: No anemia. + Easy bleeding/bruising. LYMPHATICS: No enlarged nodes. No history of splenectomy. PSYCHIATRIC: No history of depression or anxiety. ENDOCRINOLOGIC: No reports of sweating, cold or heat intolerance. No polyuria orpolydipsia. ALLERGIES: No history of asthma, hives, eczema or rhinitis. Vital Signs Vital Signs Vital Signs: 05/20/25 13:50 05/20/25 14:30 05/20/25 14:45 Temperature 97.8 F Temperature Source Oral Pulse Rate 72 59 L 61 Respiratory Rate 18 17 19 H Blood Pressure 181/99 H 137/48 H 100/65 Blood Pressure Mean 126 65 76 Pulse Ox 98 100 98 Oxygen Delivery Method Room Air 05/20/25 14:56 05/20/25 15:26 05/20/25 15:35 Temperature Temperature Source Pulse Rate 60 Respiratory Rate 17 23 H Blood Pressure 107/78 113/75 Blood Pressure Mean 86 83 Pulse Ox 100 100 Oxygen Delivery Method Room Air 05/20/25 15:40 05/20/25 15:45 05/20/25 15:50 Temperature Temperature Source Pulse Rate 60 59 L 61 Respiratory Rate 16 17 21 H Blood Pressure 105/60 108/60 102/54 L Blood Pressure Mean 74 75 70 Pulse Ox 95 98 99 Oxygen Delivery Method 05/20/25 16:00 05/20/25 16:10 05/20/25 16:15 Temperature Temperature Source Pulse Rate 55 L 54 L 55 L Respiratory Rate 20 H 15 17 Blood Pressure 115/57 L 115/57 L 116/58 L Blood Pressure Mean 76 76 75 Pulse Ox 100 100 99 Oxygen Delivery Method Room Air 05/20/25 16:20 05/20/25 16:25 05/20/25 16:30 Temperature Temperature Source Pulse Rate 54 L 55 L 55 L Respiratory Rate 14 17 24 H Blood Pressure 118/59 L 97/76 112/63 Blood Pressure Mean 75 83 71 Pulse Ox 100 100 100 Oxygen Delivery Method 05/20/25 16:35 05/20/25 16:40 05/20/25 16:45 Temperature Temperature Source Pulse Rate 55 L 56 L 54 L Respiratory Rate 24 H 18 19 H Blood Pressure 109/95 H 107/64 110/59 L Blood Pressure Mean 102 78 74 Pulse Ox 100 100 100 Oxygen Delivery Method 05/20/25 16:50 05/20/25 16:55 05/20/25 17:00 Temperature Temperature Source Pulse Rate 55 L 55 L Respiratory Rate 18 19 H Blood Pressure 109/60 110/56 L 110/73 Blood Pressure Mean 75 71 84 Pulse Ox 98 99 99 Oxygen Delivery Method 05/20/25 17:05 Temperature Temperature Source Pulse Rate 59 L Respiratory Rate 27 H Blood Pressure 113/70 Blood Pressure Mean 75 Pulse Ox 100 Oxygen Delivery Method Weight Weight: 139 lb 8 oz Body Mass Index (BMI) 29.1 Physical Exam Narrative Physical Examination: General: Awake, alert, oriented x 3 and cooperative, seated upright in the ED bed, notes resolution of previous chest pain, occasional lightheadedness sensation. Skin: Normal color, normal turgor, no icterus, no cyanosis except occasional stage ecchymoses, abrasion. HEENT: AT/NC, EOMI, PERRLA, MMM, no carotid bruits or JVD noted. Lungs: CTA bilaterally, moderate effort, mild decrease BL bases, no rales, ronchi or wheezing. Heart: Regular rate and rhythm; no gallop, rub audible. Abdomen: Soft, NTTP, ND, mildly hyperactive BS, no HSM. Extremities: No cyanosis, clubbing, or edema. Neurological: Patient awake, alert, oriented as noted, cognitive function intact; pupils equally reactive to light and accommodation, cranial nerves grossly normal, moving all 4 extremities, no focal deficits, strength mildly to moderately globally creased Psychiatric: Affect appears fatigued otherwise normal, no acute evidence of depressive or anxiety feelings. Results Lab / Micro Data 05/20/25 14:25 05/20/25 14:25 Labs: Laboratory Results - last 24 hr 05/20/25 14:25: WBC 9.9, RBC 4.30, Hgb 13.3, Hct 40.0, MCV 93.0, MCH 30.9, MCHC 33.3, RDW Std Deviation 43.8, RDW Coeff of [place] 12.8, Plt Count 262, MPV 10.4, Immature Gran % (Auto) 0.300, Neut % (Auto) 60.8, Lymph % (Auto) 28.8, [place] % (Auto) 7.2, Eos % (Auto) 2.4, Baso % (Auto) 0.5, Absolute Neuts (auto) 6.0, Absolute Lymphs (auto) 2.84, Nucleated RBC % 0, D-Dimer Quant (PE/DVT) 0.27, Sodium 134, Potassium 3.4, Chloride 97 L, Carbon Dioxide 24.3, Anion Gap 13, BUN18, Creatinine 1.09, Estim Creat Clear Calc 32.48 L, Est GFR (MDRD) Non-Af 50 L,BUN/Creatinine Ratio 16.6, Glucose 130 H, Calcium 9.5, Troponin T High Sens 105 H*, NT pro BNP II 942 Imaging Radiology Impression Chest X-Ray 05/20/25 14:58 IMPRESSION: No focal consolidations. Reading Location: [id number] Shoulder X-Ray 05/20/25 15:59 IMPRESSION: No acute osseous abnormality of the left shoulder. 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 Reading Location: [id number] Assessment & Plan Assessment/Plan (1) NSTEMI, initial episode of care: PLAN: Plan The patient is an 84 y/o F w/ PMHx: Gout, Dementia unclear type with unclear behavioral disturbance history, Hx prior retinal artery narrowing, Overweight, Macular degeneration, CKD stage III unclear subtype per GFR trending, HTN, HLD who presents to the [facility] ED on 05/20/2025 with history of onset of chest discomfort specifically left-sided beginning on day of presentation at approximately 8 AM with associated dizziness, lightheadedness occurring at rest and also with activity prompting eventual ED evaluation. #1. Chest Pain w/ Acute NSTEMI: EKG in ED w/ sinus bradycardia with right bundle brody block with no acute evidence of ischemia, CXR w/ no acute cardiopulmonary finding. Trop elevated, 105. Will admit to PCU, maintain on a monitored bed, continue serial cardiac enzymes and EKGs. Obtain magnesium level upon admission. Will continue heparin drip. Continue medical management w/ plavix, noted ASA allergy but attempting to clarify, add low-dose BB, continue home statin w/ AM FLP. ECHO requested. Cardiology consulted. Will judiciously hydrate with n.p.o. status at midnight in case of a.m. cardiac catheterization. Given lightheadedness sensation holding diuretic therapy and will obtain orthostatics. #2. Hyperglycemia, mild: No diabetic history, possibly stress response, admission glucose 130, if remains elevated low threshold to investigate further. #3. Hypertension: Continue home regimen including LAURA inhibitor with hold parameters given recent family report of possible low BPs intermittently, given presentation adding low-dose beta-juan diego if BP able to tolerate given #1 presentation, holding diuretic given family reported low blood pressure intermittently, PRN hydralazine. #4. Hyperlipidemia: Continue home statin regimen. AM FLP. #5. Chronic Kidney Disease Stage III, unclear subtype per GFR trending: Admission BUN/Cr 18/1.09, GFR 50, baseline renal function 0.8-1.0 primarily, repeat BMP in AM. #6. History of retinal artery narrowing: Continued on Plavix, statin, hypertensive regimen adjustments given #1 presentation as noted above. #7. Overweight: Weight loss and lifestyle changes encouraged. #8. Dementia with unclear type with unclear behavior disturbance history: Complicates presentation, maintain on home memantine regimen, case management consulted, encourage continued follow-up outpatient with neurology as previouslyarranged. #9. Gout: The patient on allopurinol regimen. #10. DVT prophylaxis: Heparin drip. #11. CODE status: Patient HCPOA is her /daughter and living will is currently in place. Full Code status. Charges/Coding Visit Charges Inpatient E&M: 48212 Init Hosp L3 05/20/25 1828 <Electronically signed by Ignacia Parsons MD> Cosigner Signature (if applicable): CC: Dr. Ignacia Parsons MD; Dr. Liane Stephenson DO~ Signed [facility] Work Phone: 1(931) 221-624207-13-2025 Evaluation note* Diagnosis Onset Date Resolution Status Admit Date Dementia acute May 20 5:47pm HLD (hyperlipidemia) acute May 20, 2025 5:47pm NSTEMI, initial episode of care acut e May 20, 2025 5:47pm HTN (hypertension) chronic May 082024 5:47pm [facility] Work Phone: 1(801) 763-261007-13-2025 History and physical note Author [facility] Note Date/Time May 20, 2025 6:28 pm [facility] Medical Records Department [address] [place] [address] H&P Exam - Hospitalist 05/20/25 1726 MR#: [id number] Acct: [id number] Name: EUGENIE MATA Rep #:[id number] : 1940 84 From: Ignacia Parsons MD PCP: Dr. Liane Stephenson DO Status:ADM IN Location: [place] [address] HPI - General General Date of Admission: 05/20/25 Date of Service: 05/20/25 Chief Complaint: Chest pain HPI Narrative The patient is an 84 y/o F w/ PMHx: Gout, Dementia unclear type with unclear behavioral disturbance history, Hx prior retinal artery narrowing, Overweight, Macular degeneration, CKD stage III unclear subtype per GFR trending, HTN, HLD who presents to the [facility] ED on 05/20/2025 with history of onset of chest discomfort specifically left-sided beginning on day of presentation at approximately 8 AM with associated dizziness, lightheadedness occurring at rest and also with activity prompting eventual ED evaluation. Patient noted initially the chest discomfort actually started 2 to 3 days prior but was really primarily in the left shoulder and was intermittent not specifically worse with movement but then on day of presentation became more left-sided just underneath her left breast with the associated lightheadedness and dizziness but no associated dyspnea, diaphoresis, nausea or emesis. She notes at its worst it was rated 8 out of 10 in severity and described as an aching sensation. She notes currently in the ED her chest pain is since resolved. Her family does report that she would intermittently have lower bloodpressures. 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 In the ED patient administered heparin bolus and maintained on heparin drip. [facility] Medical History Dementia Gout Overweight Chronic kidney disease (CKD), stage III (moderate) Stenosis of retinal artery Macular degeneration HLD (hyperlipidemia) HTN (hypertension) Home Medications ?Medication ?Instructions ?Recorded ?Last Taken ?Type hydrochlorothiazide 25 mg tablet 12.5 mg PO DAILY diur etic 12/17/15 10/06/22 History atorvastatin 40 mg tablet 40 mg PO QHS CHOLESTEROL 10/06/22 History clopidogrel 75 mg tablet 75 mg PO DAILY BLOOD THINNER 10/07/22 10/06/22 History ursodiol 250 mg tablet 250 mg PO BID #60 tabs 10/09 Unknown Rx allopurinol 100 mg tablet 100 mg PO DAILY 05/20/25 Unk nown History memantine 10 mg tablet 10 mg PO BID 05/20/25 Unknow n History trandolapril 4 mg tablet 4 mg PO DAILY 05/20/25 Unkno wn History Allergy/AdvReac Type Severity Reaction Status Date / Time aspirin AdvReac Unknown Verified 05/20/25 13:52 Family History Father Myocardial infarction Brother Myocardial infarction CVA (cerebral vascular accident) Mother Heart disease Surgical History H/O: hysterectomy History of knee replacement procedure of left knee History of spinal fusion Hx of cholecystectomy Social History household members: spouse Smoking Status: Never smoker alcohol intake: never substance use type: does not use ROS ROS Narrative Admission Review of Systems: CONSTITUTIONAL: No weight loss, fever, chills, + weakness or fatigue. HEENT: + Lightheadedness, dizziness. Eyes: No visual loss, blurred vision, double vision or yellow sclerae. Ears, Nose, Throat: No hearing loss, sneezing, congestion, runny nose or sore throat. SKIN: No rash or itching, lesions, wounds. CARDIOVASCULAR: + Chest pain, lightheadedness, dizziness. Palpitations, edema, orthopnea, syncopal events. RESPIRATORY: No shortness of breath, cough or sputum, wheezing, hemoptysis. GASTROINTESTINAL: No anorexia, nausea, vomiting or diarrhea, abdominal pain, melena, BRBPR. GENITOURINARY: No dysuria, frequency, urgency or retention. NEUROLOGICAL: + Lightheadedness, dizziness. No headache, syncope, paralysis, ataxia, numbness or tingling in the extremities, focal weakness, change in bowelor bladder control, seizure. MUSCULOSKELETAL: + muscle, back pain, joint pain or stiffness. HEMATOLOGIC: No anemia. + Easy bleeding/bruising. LYMPHATICS: No enlarged nodes. No history of splenectomy. PSYCHIATRIC: No history of depression or anxiety. ENDOCRINOLOGIC: No reports of sweating, cold or heat intolerance. No polyuria orpolydipsia. ALLERGIES: No history of asthma, hives, eczema or rhinitis. Vital Signs Vital Signs Vital Signs: 05/20/25 13:50 05/20/25 14:30 05/20/25 14:45 Temperature 97.8 F Temperature Source Oral Pulse Rate 72 59 L 61 Respiratory Rate 18 17 19 H Blood Pressure 181/99 H 137/48 H 100/65 Blood Pressure Mean 126 65 76 Pulse Ox 98 100 98 Oxygen Delivery Method Room Air 05/20/25 14:56 05/20/25 15:26 05/20/25 15:35 Temperature Temperature Source Pulse Rate 60 Respiratory Rate 17 23 H Blood Pressure 107/78 113/75 Blood Pressure Mean 86 83 Pulse Ox 100 100 Oxygen Delivery Method Room Air 05/20/25 15:40 05/20/25 15:45 05/20/25 15:50 Temperature Temperature Source Pulse Rate 60 59 L 61 Respiratory Rate 16 17 21 H Blood Pressure 105/60 108/60 102/54 L Blood Pressure Mean 74 75 70 Pulse Ox 95 98 99 Oxygen Delivery Method 05/20/25 16:00 05/20/25 16:10 05/20/25 16:15 Temperature Temperature Source Pulse Rate 55 L 54 L 55 L Respiratory Rate 20 H 15 17 Blood Pressure 115/57 L 115/57 L 116/58 L Blood Pressure Mean 76 76 75 Pulse Ox 100 100 99 Oxygen Delivery Method Room Air 05/20/25 16:20 05/20/25 16:25 05/20/25 16:30 Temperature Temperature Source Pulse Rate 54 L 55 L 55 L Respiratory Rate 14 17 24 H Blood Pressure 118/59 L 97/76 112/63 Blood Pressure Mean 75 83 71 Pulse Ox 100 100 100 Oxygen Delivery Method 05/20/25 16:35 05/20/25 16:40 05/20/25 16:45 Temperature Temperature Source Pulse Rate 55 L 56 L 54 L Respiratory Rate 24 H 18 19 H Blood Pressure 109/95 H 107/64 110/59 L Blood Pressure Mean 102 78 74 Pulse Ox 100 100 100 Oxygen Delivery Method 05/20/25 16:50 05/20/25 16:55 05/20/25 17:00 Temperature Temperature Source Pulse Rate 55 L 55 L Respiratory Rate 18 19 H Blood Pressure 109/60 110/56 L 110/73 Blood Pressure Mean 75 71 84 Pulse Ox 98 99 99 Oxygen Delivery Method 05/20/25 17:05 Temperature Temperature Source Pulse Rate 59 L Respiratory Rate 27 H Blood Pressure 113/70 Blood Pressure Mean 75 Pulse Ox 100 Oxygen Delivery Method Weight Weight: 139 lb 8 oz Body Mass Index (BMI) 29.1 Physical Exam Narrative Physical Examination: General: Awake, alert, oriented x 3 and cooperative, seated upright in the ED bed, notes resolution of previous chest pain, occasional lightheadedness sensation. Skin: Normal color, normal turgor, no icterus, no cyanosis except occasional stage ecchymoses, abrasion. HEENT: AT/NC, EOMI, PERRLA, MMM, no carotid bruits or JVD noted. Lungs: CTA bilaterally, moderate effort, mild decrease BL bases, no rales, ronchi or wheezing. Heart: Regular rate and rhythm; no gallop, rub audible. Abdomen: Soft, NTTP, ND, mildly hyperactive BS, no HSM. Extremities: No cyanosis, clubbing, or edema. Neurological: Patient awake, alert, oriented as noted, cognitive function intact; pupils equally reactive to light and accommodation, cranial nerves grossly normal, moving all 4 extremities, no focal deficits, strength mildly to moderately globally creased Psychiatric: Affect appears fatigued otherwise normal, no acute evidence of depressive or anxiety feelings. Results Lab / Micro Data 05/20/25 14:25 05/20/25 14:25 Labs: Laboratory Results - last 24 hr 05/20/25 14:25: WBC 9.9, RBC 4.30, Hgb 13.3, Hct 40.0, MCV 93.0, MCH 30.9, MCHC 33.3, RDW Std Deviation 43.8, RDW Coeff of [place] 12.8, Plt Count 262, MPV 10.4, Immature Gran % (Auto) 0.300, Neut % (Auto) 60.8, Lymph % (Auto) 28.8, [place] % (Auto) 7.2, Eos % (Auto) 2.4, Baso % (Auto) 0.5, Absolute Neuts (auto) 6.0, Absolute Lymphs (auto) 2.84, Nucleated RBC % 0, D-Dimer Quant (PE/DVT) 0.27, Sodium 134, Potassium 3.4, Chloride 97 L, Carbon Dioxide 24.3, Anion Gap 13, BUN18, Creatinine 1.09, Estim Creat Clear Calc 32.48 L, Est GFR (MDRD) Non-Af 50 L,BUN/Creatinine Ratio 16.6, Glucose 130 H, Calcium 9.5, Troponin T High Sens 105 H*, NT pro BNP II 942 Imaging Radiology Impression Chest X-Ray 05/20/25 14:58 IMPRESSION: No focal consolidations. Reading Location: [id number] Shoulder X-Ray 05/20/25 15:59 IMPRESSION: No acute osseous abnormality of the left shoulder. 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 Reading Location: [id number] Assessment & Plan Assessment/Plan (1) NSTEMI, initial episode of care: PLAN: Plan The patient is an 84 y/o F w/ PMHx: Gout, Dementia unclear type with unclear behavioral disturbance history, Hx prior retinal artery narrowing, Overweight, Macular degeneration, CKD stage III unclear subtype per GFR trending, HTN, HLD who presents to the [facility] ED on 05/20/2025 with history of onset of chest discomfort specifically left-sided beginning on day of presentation at approximately 8 AM with associated dizziness, lightheadedness occurring at rest and also with activity prompting eventual ED evaluation. #1. Chest Pain w/ Acute NSTEMI: EKG in ED w/ sinus bradycardia with right bundle brody block with no acute evidence of ischemia, CXR w/ no acute cardiopulmonary finding. Trop elevated, 105. Will admit to PCU, maintain on a monitored bed, continue serial cardiac enzymes and EKGs. Obtain magnesium level upon admission. Will continue heparin drip. Continue medical management w/ plavix, noted ASA allergy but attempting to clarify, add low-dose BB, continue home statin w/ AM FLP. ECHO requested. Cardiology consulted. Will judiciously hydrate with n.p.o. status at midnight in case of a.m. cardiac catheterization. Given lightheadedness sensation holding diuretic therapy and will obtain orthostatics. #2. Hyperglycemia, mild: No diabetic history, possibly stress response, admission glucose 130, if remains elevated low threshold to investigate further. #3. Hypertension: Continue home regimen including LAURA inhibitor with hold parameters given recent family report of possible low BPs intermittently, given presentation adding low-dose beta-juan diego if BP able to tolerate given #1 presentation, holding diuretic given family reported low blood pressure intermittently, PRN hydralazine. #4. Hyperlipidemia: Continue home statin regimen. AM FLP. #5. Chronic Kidney Disease Stage III, unclear subtype per GFR trending: Admission BUN/Cr 18/1.09, GFR 50, baseline renal function 0.8-1.0 primarily, repeat BMP in AM. #6. History of retinal artery narrowing: Continued on Plavix, statin, hypertensive regimen adjustments given #1 presentation as noted above. #7. Overweight: Weight loss and lifestyle changes encouraged. #8. Dementia with unclear type with unclear behavior disturbance history: Complicates presentation, maintain on home memantine regimen, case management consulted, encourage continued follow-up outpatient with neurology as previouslyarranged. #9. Gout: The patient on allopurinol regimen. #10. DVT prophylaxis: Heparin drip. #11. CODE status: Patient STEVE is her /daughter and living will is currently in place. Full Code status. Charges/Coding Visit Charges Inpatient E&M: 37415 Init Hosp L3 05/20/25 8161 <Electronically signed by Ignacia Parsons MD> Cosigner Signature (if applicable): CC: Dr. Ignacia Parsons MD; Dr. Liane Stephenson DO~ Signed [facility] Work Phone: [phone] Discharge summary [facility] Medical Records Department [address] [place] [address] Emergency Department Summary 05/20/25 MR#: [id number] Acct: [id number] Name: EUGENIE MATA Rep #:[id number] : 1940 84 From: Devin Watkins PCP: Dr. Liane Stephenson DO Status:ADM IN Location: [address] History of Present Illness Chief Complaint: Chest Pain PFSH PFSH Medical History (Updated 05/20/25 @ 17:[address] Ignacia Parsons MD) Dementia Gout Overweight Chronic kidney disease (CKD), stage III (moderate) Stenosis of retinal artery Macular degeneration HLD (hyperlipidemia) HTN (hypertension) Home Medications ?Medication ?Instructions ?Recorded ?Last Taken ?Type hydrochlorothiazide 25 mg tablet 12.5 mg PO DAILY diur etic 12/17/15 10/06/22 History atorvastatin 40 mg tablet 40 mg PO QHS CHOLESTEROL 10/06/22 History clopidogrel 75 mg tablet 75 mg PO DAILY BLOOD THINNER 10/07/22 10/06/22 History ursodiol 250 mg tablet 250 mg PO BID #60 tabs 10/09 Unknown Rx allopurinol 100 mg tablet 100 mg PO DAILY 05/20/25 Unk nown History memantine 10 mg tablet 10 mg PO BID 05/20/25 Unknow n History trandolapril 4 mg tablet 4 mg PO DAILY 05/20/25 Unkno wn History Allergy/AdvReac Type Severity Reaction Status Date / Time aspirin AdvReac Unknown Verified 05/20/25 13:52 Family History Father Myocardial infarction Brother Myocardial infarction CVA (cerebral vascular accident) Mother Heart disease Surgical History H/O: hysterectomy History of knee replacement procedure of left knee History of spinal fusion Hx of cholecystectomy Social History household members: spouse Smoking Status: Never smoker alcohol intake: never substance use type: does not use EXAM Physical Exam Const Vital Signs: 05/20/25 13:50 05/20/25 14:30 05/20/25 14:45 Temperature 97.8 F Temperature Source Oral Pulse Rate 72 59 L 61 Respiratory Rate 18 17 19 H Blood Pressure 181/99 H 137/48 H 100/65 Blood Pressure Mean 126 65 76 Pulse Ox 98 100 98 Oxygen Delivery Method Room Air 05/20/25 14:56 05/20/25 15:26 05/20/25 15:35 Temperature Temperature Source Pulse Rate 60 Respiratory Rate 17 23 H Blood Pressure 107/78 113/75 Blood Pressure Mean 86 83 Pulse Ox 100 100 Oxygen Delivery Method Room Air 05/20/25 15:40 05/20/25 15:45 05/20/25 15:50 Temperature Temperature Source Pulse Rate 60 59 L 61 Respiratory Rate 16 17 21 H Blood Pressure 105/60 108/60 102/54 L Blood Pressure Mean 74 75 70 Pulse Ox 95 98 99 Oxygen Delivery Method 05/20/25 16:00 05/20/25 16:10 05/20/25 16:15 Temperature Temperature Source Pulse Rate 55 L 54 L 55 L Respiratory Rate 20 H 15 17 Blood Pressure 115/57 L 115/57 L 116/58 L Blood Pressure Mean 76 76 75 Pulse Ox 100 100 99 Oxygen Delivery Method Room Air 05/20/25 16:20 05/20/25 16:25 05/20/25 16:30 Temperature Temperature Source Pulse Rate 54 L 55 L 55 L Respiratory Rate 14 17 24 H Blood Pressure 118/59 L 97/76 112/63 Blood Pressure Mean 75 83 71 Pulse Ox 100 100 100 Oxygen Delivery Method 05/20/25 16:35 05/20/25 16:40 05/20/25 16:45 Temperature Temperature Source Pulse Rate 55 L 56 L 54 L Respiratory Rate 24 H 18 19 H Blood Pressure 109/95 H 107/64 110/59 L Blood Pressure Mean 102 78 74 Pulse Ox 100 100 100 Oxygen Delivery Method 05/20/25 16:50 05/20/25 16:55 05/20/25 17:00 Temperature Temperature Source Pulse Rate 55 L 55 L Respiratory Rate 18 19 H Blood Pressure 109/60 110/56 L 110/73 Blood Pressure Mean 75 71 84 Pulse Ox 98 99 99 Oxygen Delivery Method 05/20/25 17:05 05/20/25 17:26 Temperature 98.2 F Temperature Source Pulse Rate 59 L 59 L Respiratory Rate 27 H 23 H Blood Pressure 113/70 122/86 H Blood Pressure Mean 75 98 Pulse Ox 100 100 Oxygen Delivery Method MDM MDM MDM Narrative Medical decision making narrative: HISTORY OF PRESENT ILLNESS: Chief complaint: Dizziness, chest pain 84-year-old female history of hyperlipidemia, hypertension, presents with chest pain. She notes Left-sided chest pain that began this morning approximate 8 AM approximately 5 hours prior to arrival. She also notes some dizziness and lightheadedness as well. Pain is not exertional. Is not ripping ortearing. The patient denies recent surgery in the last 4 weeks or immobilization in the last 3 days, denies previous diagnosis of DVT or PE, hemoptysis, unilateral leg swelling or malignancy with treatment the last 6 months or palliative. No estrogen use noted. Patient denies sudden onset of pain, no tearing sensation, no migratory symptoms, no new numbness, weakness or loss of sensation. Patient denies family history or personal history of Connective tissue disorders (Marfan's Syndrome, EhlersDanlos etc) REVIEW OF SYSTEMS: Pertinent positives: Pertinent negatives: [] PHYSICAL EXAM: Nursing triage notes reviewed, Vital signs reviewed Constitutional: please see mdm HENT: MMM Eyes: Pupils equal round and reactive to light, Extraocular muscles intact Neck: No stridor, no JVD, full neck ROM Lungs: Clear to auscultation, No wheezing or rales. No increased work of breathing, no conversational dyspnea, no accessory muscle use, no nasal flaring. No respiratory distress noted Heart: Regular rate and rhythm, No murmurs, No rubs and No gallops, 2+ distal pulses (radial, femoral, posterior tibial) in all extremities Abdomen: Soft, there is no tenderness, rigidity, rebound or guarding, no obvious peritoneal signs, no palpable pulsatile abdominal masses, no auscultated abdominal bruit : No CVAT Extremities: No edema Neuro: alert and oriented x3, neuro exam at baseline, cranial nerves II through XII are intact. No pain with extraocular muscle movement. There is negative test of skew. 5 of 5 strength in upper and lower extremities in flexion extension. Intact sensation to light touch in upper and lower extremitydermatomes. No truncal or extremity ataxia. No dysdiadochokinesia. Normal gait. 2+ reflexes in upper and lower extremities. No meningeal signs. Negative Babinski. NIH of 0. Skin: No rash or lesions noted MEDICAL DECISION MAKING: Chief Complaint: please see HPI External records reviewed: Reviewed prior cardiovascular testing: Reviewed echocardiogram from 2019which showed ejection fraction 65% Factors affecting care: As per HPI Social determinants of health: Denies illicit drug use such as cocaine or methamphetamine History obtained from others: none Consults: Cardiology (Dr. Ryder) -recommended aspirin, heparin, statin and possible cath in the morning. Discussed case Internal medicine (Dr. Parsons)?recommended admission to PCU full MDM Narrative: The patient was initially hypertensive with blood pressure 181/99 otherwise afebrile and nontoxic-appearing. Exam without focal cardiopulmonary normalities. TTP over left shoulder. I considered the following differential diagnosis: ACS, arrhythmia, anemia, electrolyte disturbance, pneumothorax, pneumonia, PE, aortic dissection I obtained a broad lab and imaging to further determine if the patient was suffering from a life-threatening etiology. ALL IMAGES (IF OBTAINED) HAVE BEEN PERSONALLY REVIEWED AND INTERPRETED BY MYSELF. EKG with sinus bradycardia rate 59, left axis deviation, right bundle branch block, QTc 427, no obvious to Initial troponin elevated consistent with myocardial ischemia CBC without leukocytosis, severe anemia, no thrombocytopenia. No coagulopathy D-dimer negative making VTE and aortic dissection less like BNP within normal limit BMP without evidence of significant electrolyte abnormalities, no anion gap, no acute kidney injury. I have personally reviewed the patient's chest x-ray. Chest x-ray is unremarkable for pulmonary edema, pneumothorax, pneumonia or focal cardiopulmonary abnormality. X-ray left shoulder was read reviewed personally myself showed no evidence of obvious bony abnormality Discussed with cardiology recommended admission and possible catheterization urgently. Patient remained chest pain-free. Repeat troponin continued to uptrend. Patient was started on heparin. On reevaluation patient main chest pain free. Blood pressure improved to 122/86. Discussed with he recommended PCU full admission The patient and/or family, caregivers express understanding. The patient and/or family, caregivers agrees with the plan. Shared decision making: I will have a discussion with the patient and or visitors regarding risk/benefits of further testing or admission. They will be made aware of of the risk/benefits inherent in this decision they will be given the opportunity to voice understanding. Total critical care time today provided was at least 35 minutes. This excludes separately billable procedures. Critical care time (if documented) is secondary to the patient having high probability of clinically significant/life threatening deterioration in the patient's condition which required myurgent intervention. Impression: 1. Acute chest pain 2. NSTEMI 3. History of hypertension Dispo: Admit to PCU This note was generated with [employer] dictation software. It may contain incorrect words, spelling, and punctuation that were not noted in review of the chart prior to signing. Lab Data Labs: Laboratory Results - last 24 hr 05/20/25 05/20/25 14:25 17:00 WBC 9.9 RBC 4.30 Hgb 13.3 Hct 40.0 MCV 93.0 MCH 30.9 MCHC 33.3 RDW Std Deviation 43.8 RDW Coeff of [place] 12.8 Plt Count 262 MPV 10.4 Immature Gran % (Auto) 0.300 Neut % (Auto) 60.8 Lymph % (Auto) 28.8 [place] % (Auto) 7.2 Eos % (Auto) 2.4 Baso % (Auto) 0.5 Absolute Neuts (auto) 6.0 Absolute Lymphs (auto) 2.84 Nucleated RBC % 0 PT 12.1 INR 0.9 APTT 27.6 D-Dimer Quant (PE/DVT) 0.27 Sodium 134 Potassium 3.4 Chloride 97 L Carbon Dioxide 24.3 Anion Gap 13 BUN 18 Creatinine 1.09 Estim Creat Clear Calc 32.48 L Est GFR (MDRD) Non-Af 50 L BUN/Creatinine Ratio 16.6 Glucose 130 H Calcium 9.5 Troponin T High Sens 105 H* Troponin T Hi Sens 2 Hr 153 H* NT pro BNP II 942 Radiography Diagnostic Testing: Clinical Impression(s) from Imaging Studies Chest X-Ray 05/20/25 14:58 IMPRESSION: No focal consolidations. Reading Location: [facility] Shoulder X-Ray 05/20/25 15:59 IMPRESSION: No acute osseous abnormality of the left shoulder. 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 Reading Location: [facility] Discharge Plan Triage Chief Complaint: Chest Pain ED Provider: Devin Piña Dx/Rx/DC Orders Primary Care Provider: Liane Stephenson What to do if you have Problems For any increased pain, shortness of breath, bleeding, nausea or vomiting, chest pain, or any unexpected problems, contact your Primary Care Provider. Call [facility] ([phone]) or report to the closest Emergency Room. Call 911 if necessary. 05/20/25 7624 Cosigner Signature (if applicable): CC: Dr. Liane Stephenson, ~ Signed [facility]07-13-2025 History and physical note [facility] Medical Records Department [address] [place] [address] H&P Exam - Hospitalist 05/20/25 1726 MR#: [id number] Acct: [id number] Name: EUGENIE MATA Rep #:[id number] : 1940 84 From: Ignacia Parsons MD PCP: Dr. Liane Stephenson, DO Status:ADM IN Location: [place] [address] HPI - General General Date of Admission: 05/20/25 Date of Service: 05/20/25 Chief Complaint: Chest pain HPI Narrative The patient is an 84 y/o F w/ PMHx: Gout, Dementia unclear type with unclear behavioral disturbancehistory, Hx prior retinal artery narrowing, Overweight, Macular degeneration, CKD stage III unclearsubtype per GFR trending, HTN, HLD who presents to the [facility] ED on 05/20/2025 with history of onset of chest discomfort specifically left-sided beginning on day of presentation atapproximately 8 AM with associated dizziness, lightheadedness occurring at rest and also with activity prompting eventual ED evaluation. Patient noted initially the chest discomfort actually started 2 to 3 days prior but was really primarily in the left shoulder and was intermittent not specifically worse with movement but then on day of presentation became more left-sided just underneath her left breast with the associated lightheadedness and dizziness but no associated dyspnea, diaphoresis, nausea or emesis. She notes at its worst it was rated 8 out of 10 in severity and described as an achi ng sensation. She notes currently in the ED her chest pain is since resolved. Her family does report that she would intermittently have lower bloodpressures. Workup in the ED included T97.8, heart rate 72, BP 181/99, respiratory rate 18, 98% on room air with most recent repeat vitals heart rate 55,BP 97/76, respiratory rate 17, 100% on room air, CBC with WC 9.9, he 113.3, MCV 93, platelet 262 without shift, D-dimer 0.27, pending coags, BMP with chloride 97, BUN/creat 18/1.09, GFR 50, glucose 130, initial troponin 105, NT proBNP II 942, chest x-ray with no acute cardiopulmonary findings, plain film ofthe left shoulder with no acute osseous abnormality, osteoarthritis of the acromioclavicular and glenohumeral joints evident, EKG with sinus bradycardia with right bundle branch block with noacute evidence of ischemia. In the ED patient administered heparin bolus and maintained on heparin drip. [facility] Medical History Dementia Gout Overweight Chronic kidney disease (CKD), stage III (moderate) Stenosis of retinal artery Macular degeneration HLD (hyperlipidemia) HTN (hypertension) Home Medications ?Medication ?Instructions ?Recorded ?Last Taken ?Type hydrochlorothiazide 25 mg tablet 12.5 mg PO DAILY diur etic 12/17/15 10/06/22 History atorvastatin 40 mg tablet 40 mg PO QHS CHOLESTEROL 10/06/22 History clopidogrel 75 mg tablet 75 mg PO DAILY BLOOD THINNER 10/07/22 10/06/22 History ursodiol 250 mg tablet 250 mg PO BID #60 tabs 10/09 Unknown Rx allopurinol 100 mg tablet 100 mg PO DAILY 05/20/25 Unk nown History memantine 10 mg tablet 10 mg PO BID 05/20/25 Unknow n History trandolapril 4 mg tablet 4 mg PO DAILY 05/20/25 Unkno wn History Allergy/AdvReac Type Severity Reaction Status Date / Time aspirin AdvReac Unknown Verified 05/20/25 13:52 Family History Father Myocardial infarction Brother Myocardial infarction CVA (cerebral vascular accident) Mother Heart disease Surgical History H/O: hysterectomy History of knee replacement procedure of left knee History of spinal fusion Hx of cholecystectomy Social History household members: spouse Smoking Status: Never smoker alcohol intake: never substance use type: does not use ROS ROS Narrative Admission Review of Systems: CONSTITUTIONAL: No weight loss, fever, chills, + weakness or fatigue. HEENT: + Lightheadedness, dizziness. Eyes: No visual loss, blurred vision, double vision or yellow sclerae. Ears, Nose, Throat: No hearing loss, sneezing, congestion, runny nose or sore throat. SKIN: No rash or itching, lesions, wounds. CARDIOVASCULAR: + Chest pain, lightheadedness, dizziness. Palpitations, edema, orthopnea, syncopal events. RESPIRATORY: No shortness of breath, cough or sputum, wheezing, hemoptysis. GASTROINTESTINAL: No anorexia, nausea, vomiting or diarrhea, abdominal pain, melena, BRBPR. GENITOURINARY: No dysuria, frequency, urgency or retention. NEUROLOGICAL: + Lightheadedness, dizziness. No headache, syncope, paralysis, ataxia, numbness or tingling in the extremities, focal weakness, change in bowelor bladder control, seizure. MUSCULOSKELETAL: + muscle, back pain, joint pain or stiffness. HEMATOLOGIC: No anemia. + Easy bleeding/bruising. LYMPHATICS: No enlarged nodes. No history of splenectomy. PSYCHIATRIC: No history of depression or anxiety. ENDOCRINOLOGIC: No reports of sweating, cold or heat intolerance. No polyuria orpolydipsia. ALLERGIES: No history of asthma, hives, eczema or rhinitis. Vital Signs Vital Signs Vital Signs: 05/20/25 13:50 05/20/25 14:30 05/20/25 14:45 Temperature 97.8 F Temperature Source Oral Pulse Rate 72 59 L 61 Respiratory Rate 18 17 19 H Blood Pressure 181/99 H 137/48 H 100/65 Blood Pressure Mean 126 65 76 Pulse Ox 98 100 98 Oxygen Delivery Method Room Air 05/20/25 14:56 05/20/25 15:26 05/20/25 15:35 Temperature Temperature Source Pulse Rate 60 Respiratory Rate 17 23 H Blood Pressure 107/78 113/75 Blood Pressure Mean 86 83 Pulse Ox 100 100 Oxygen Delivery Method Room Air 05/20/25 15:40 05/20/25 15:45 05/20/25 15:50 Temperature Temperature Source Pulse Rate 60 59 L 61 Respiratory Rate 16 17 21 H Blood Pressure 105/60 108/60 102/54 L Blood Pressure Mean 74 75 70 Pulse Ox 95 98 99 Oxygen Delivery Method 05/20/25 16:00 05/20/25 16:10 05/20/25 16:15 Temperature Temperature Source Pulse Rate 55 L 54 L 55 L Respiratory Rate 20 H 15 17 Blood Pressure 115/57 L 115/57 L 116/58 L Blood Pressure Mean 76 76 75 Pulse Ox 100 100 99 Oxygen Delivery Method Room Air 05/20/25 16:20 05/20/25 16:25 05/20/25 16:30 Temperature Temperature Source Pulse Rate 54 L 55 L 55 L Respiratory Rate 14 17 24 H Blood Pressure 118/59 L 97/76 112/63 Blood Pressure Mean 75 83 71 Pulse Ox 100 100 100 Oxygen Delivery Method 05/20/25 16:35 05/20/25 16:40 05/20/25 16:45 Temperature Temperature Source Pulse Rate 55 L 56 L 54 L Respiratory Rate 24 H 18 19 H Blood Pressure 109/95 H 107/64 110/59 L Blood Pressure Mean 102 78 74 Pulse Ox 100 100 100 Oxygen Delivery Method 05/20/25 16:50 05/20/25 16:55 05/20/25 17:00 Temperature Temperature Source Pulse Rate 55 L 55 L Respiratory Rate 18 19 H Blood Pressure 109/60 110/56 L 110/73 Blood Pressure Mean 75 71 84 Pulse Ox 98 99 99 Oxygen Delivery Method 05/20/25 17:05 Temperature Temperature Source Pulse Rate 59 L Respiratory Rate 27 H Blood Pressure 113/70 Blood Pressure Mean 75 Pulse Ox 100 Oxygen Delivery Method Weight Weight: 139 lb 8 oz Body Mass Index (BMI) 29.1 Physical Exam Narrative Physical Examination: General: Awake, alert, oriented x 3 and cooperative, seated upright in the ED bed, notes resolutionof previous chest pain, occasional lightheadedness sensation. Skin: Normal color, normal turgor, no icterus, no cyanosis except occasional stage ecchymoses, abrasion. HEENT: AT/NC, EOMI, PERRLA, MMM, no carotid bruits or JVD noted. Lungs: CTA bilaterally, moderate effort, mild decrease BL bases, no rales, ronchi or wheezing. Heart: Regular rate and rhythm; no gallop, rub audible. Abdomen: Soft, NTTP, ND, mildly hyperactive BS, no HSM. Extremities: No cyanosis, clubbing, or edema. Neurological: Patient awake, alert, oriented as noted, cognitive function intact; pupils equally reactive to light and accommodation, cranial nerves grossly normal, moving all 4 extremities, no focaldeficits, strength mildly to moderately globally creased Psychiatric: Affect appears fatigued otherwise normal, no acute evidence of depressive or anxiety feelings. Results Lab / Micro Data 05/20/25 14:25 05/20/25 14:25 Labs: Laboratory Results - last 24 hr 05/20/25 14:25: WBC 9.9, RBC 4.30, Hgb 13.3, Hct 40.0, MCV 93.0, MCH 30.9, MCHC 33.3, RDW Std Deviation 43.8, RDW Coeff of Ansley 12.8, Plt Count 262, MPV 10.4, Immature Gran % (Auto) 0.300, Neut % (Auto) 60.8, Lymph % (Auto) 28.8, [place] % (Auto) 7.2, Eos % (Auto) 2.4, Baso % (Auto) 0.5, Absolute Neuts(auto) 6.0, Absolute Lymphs (auto) 2.84, Nucleated RBC % 0, D-Dimer Quant (PE/DVT) 0.27, Sodium 134, Potassium 3.4, Chloride 97 L, Carbon Dioxide 24.3, Anion Gap 13, BUN18, Creatinine 1.09, Estim Creat Clear Calc 32.48 L, Est GFR (MDRD) Non-Af 50 L,BUN/Creatinine Ratio 16.6, Glucose 130 H, Calcium 9.5, Troponin T High Sens 105 H*, NT pro BNP II 942 Imaging Radiology Impression Chest X-Ray 05/20/25 14:58 IMPRESSION: No focal consolidations. Reading Location: [id number] Shoulder X-Ray 05/20/25 15:59 IMPRESSION: No acute osseous abnormality of the left shoulder. 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 Reading Location: [id number] Assessment & Plan Assessment/Plan (1) NSTEMI, initial episode of care: PLAN: Plan The patient is an 84 y/o F w/ PMHx: Gout, Dementia unclear type with unclear behavioral disturbancehistory, Hx prior retinal artery narrowing, Overweight, Macular degeneration, CKD stage III unclearsubtype per GFR trending, HTN, HLD who presents to the [facility] ED on 05/20/2025 with history of onset of chest discomfort specifically left-sided beginning on day of presentation atapproximately 8 AM with associated dizziness, lightheadedness occurring at rest and also with activity prompting eventual ED evaluation. #1. Chest Pain w/ Acute NSTEMI: EKG in ED w/ sinus bradycardia with right bundle brody block with no acute evidence of ischemia, CXR w/ no acute cardiopulmonary finding. Trop elevated, 105. Will admit to PCU, maintain on a monitored bed, continue serial cardiac enzymes and EKGs. Obtain magnesium level upon admission. Will continue heparin drip. Continue medical management w/ plavix, noted ASA allergy but attempting to clarify, add low-dose BB, continue home statin w/ AM FLP. ECHO requested. Cardiology consulted. Will judiciously hydrate with n.p.o. status at midnight in case of a.m. cardiac catheterization. Given lightheadedness sensation holding diuretic therapy and will obtain orthostatics. #2. Hyperglycemia, mild: No diabetic history, possibly stress response, admission glucose 130, if remains elevated low threshold to investigate further. #3. Hypertension: Continue home regimen including LAURA inhibitor with hold parameters given recent family report of possible low BPs intermittently, given presentation adding low-dose beta-juan diego if BP able to tolerate given #1 presentation, holding diuretic given family reported low blood pressure intermittently, PRN hydralazine. #4. Hyperlipidemia: Continue home statin regimen. AM FLP. #5. Chronic Kidney Disease Stage III, unclear subtype per GFR trending: Admission BUN/Cr 18/1.09, GFR 50, baseline renal function 0.8-1.0 primarily, repeat BMP in AM. #6. History of retinal artery narrowing: Continued on Plavix, statin, hypertensive regimen adjustments given #1 presentation as noted above. #7. Overweight: Weight loss and lifestyle changes encouraged. #8. Dementia with unclear type with unclear behavior disturbance history: Complicates presentation,maintain on home memantine regimen, case management consulted, encourage continued follow-up outpatient with neurology as previouslyarranged. #9. Gout: The patient on allopurinol regimen. #10. DVT prophylaxis: Heparin drip. #11. CODE status: Patient HCPOA is her /daughter and living will is currently in place. FullCode status. Charges/Coding Visit Charges Inpatient E&M: 66567 Init Hosp L3 05/20/25 1310 Cosigner Signature (if applicable): CC: Dr. Ignacia Parsons MD; Dr. Liane Stephenson, DO~ Signed [facility]07-13-2025 Radiology Diagnostic study note [facility] Services [address] [place] [address] Shoulder min 2 Views MR#: [id number] Acct: [id number] Name: EUGENIE MATA Rep #: [id number] : 1940 F 84 From: Liat Louis MD PCP: Dr. Liane Stephenson DO Status: REG ER Study:Shoulder min 2 Views Date of Exam: 05/20/25 Exam# [id number] Ordering Dr: Luisito Piña DO PROCEDURE: SHOULDER MIN 2 VIEWS 05/20/2025 REASON FOR EXAM: PAIN TECHNIQUE: SHOULDER MIN 2 VIEWS COMPARISON: None FINDINGS: No displaced fracture or traumatic malalignment. Nyyp-ai-ewtujffw joint space narrowing and osteophyte formation at the acromioclavicular joint, mild at the glenohumeral joint. Bone mineral density is subjectively normal. Soft tissues are unremarkable. Spinal stimulator leads partially imaged. Visualized thorax is clear. RAD/Shoulder min 2 Views IMPRESSION: No acute osseous abnormality of the left shoulder. 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 Reading Location: [id number] CC: Dr. Liane Stephenson DO; Dr. Devin Piña DO ~ [employer] Research Associate: Signed [facility]07-13-2025 Radiology Diagnostic study note [facility] Services [address] [place], [place] [address] Chest 1 View (Portable) MR#: [id number] Acct: [id number] Name: EUGENIE MATA Rep #: [id number] : 1940 F 84 From: Elizabeth Koehler MD PCP: Dr. Liane Stephenson DO Status: REG ER Study:Chest 1 View (Portable) Date of Exam: 05/20/25 Exam# [id number] Ordering Dr: Luisito Piña DO PROCEDURE: CHEST 1 VIEW (PORTABLE) 05/20/2025 REASON FOR EXAM: CHEST PAIN TECHNIQUE: Frontal view of the chest. COMPARISON: 10/07/2022 FINDINGS: No focal consolidation. No pleural effusion or pneumothorax. Cardiac silhouette is within normal limits. Calcified aortic arch. Neurostimulator device noted. RAD/Chest 1 View (Portable) IMPRESSION: No focal consolidations. Reading Location: [facility] CC: Dr. Liane Stephenson DO; Dr. Devin Piña DO ~ [employer] Research Associate: Signed [facility]07-13-2025 Discharge summary Author Devin Piña [facility] Note Date/Time May 20, 2025 6:28 pm [facility] Medical Records Department [address] [place] [address] Emergency Department Summary 05/20/25 MR#: [id number] Acct: [id number] Name: EUGENIE MATA Rep #:[id number] : 1940 84 From: Devin Watkins PCP: Dr. Liane Stephenson DO Status:ADM IN Location: [address] History of Present Illness Chief Complaint: Chest Pain PFSH [facility] Medical History (Updated 05/20/25 @ 17:[address] Ignacia Parsons MD) Dementia Gout Overweight Chronic kidney disease (CKD), stage III (moderate) Stenosis of retinal artery Macular degeneration HLD (hyperlipidemia) HTN (hypertension) Home Medications ?Medication ?Instructions ?Recorded ?Last Taken ?Type hydrochlorothiazide 25 mg tablet 12.5 mg PO DAILY diur etic 12/17/15 10/06/22 History atorvastatin 40 mg tablet 40 mg PO QHS CHOLESTEROL 10/06/22 History clopidogrel 75 mg tablet 75 mg PO DAILY BLOOD THINNER 10/07/22 10/06/22 History ursodiol 250 mg tablet 250 mg PO BID #60 tabs 10/09 Unknown Rx allopurinol 100 mg tablet 100 mg PO DAILY 05/20/25 Unk nown History memantine 10 mg tablet 10 mg PO BID 05/20/25 Unknow n History trandolapril 4 mg tablet 4 mg PO DAILY 05/20/25 Unkno wn History Allergy/AdvReac Type Severity Reaction Status Date / Time aspirin AdvReac Unknown Verified 05/20/25 13:52 Family History Father Myocardial infarction Brother Myocardial infarction CVA (cerebral vascular accident) Mother Heart disease Surgical History H/O: hysterectomy History of knee replacement procedure of left knee History of spinal fusion Hx of cholecystectomy Social History household members: spouse Smoking Status: Never smoker alcohol intake: never substance use type: does not use EXAM Physical Exam Const Vital Signs: 05/20/25 13:50 05/20/25 14:30 05/20/25 14:45 Temperature 97.8 F Temperature Source Oral Pulse Rate 72 59 L 61 Respiratory Rate 18 17 19 H Blood Pressure 181/99 H 137/48 H 100/65 Blood Pressure Mean 126 65 76 Pulse Ox 98 100 98 Oxygen Delivery Method Room Air 05/20/25 14:56 05/20/25 15:26 05/20/25 15:35 Temperature Temperature Source Pulse Rate 60 Respiratory Rate 17 23 H Blood Pressure 107/78 113/75 Blood Pressure Mean 86 83 Pulse Ox 100 100 Oxygen Delivery Method Room Air 05/20/25 15:40 05/20/25 15:45 05/20/25 15:50 Temperature Temperature Source Pulse Rate 60 59 L 61 Respiratory Rate 16 17 21 H Blood Pressure 105/60 108/60 102/54 L Blood Pressure Mean 74 75 70 Pulse Ox 95 98 99 Oxygen Delivery Method 05/20/25 16:00 05/20/25 16:10 05/20/25 16:15 Temperature Temperature Source Pulse Rate 55 L 54 L 55 L Respiratory Rate 20 H 15 17 Blood Pressure 115/57 L 115/57 L 116/58 L Blood Pressure Mean 76 76 75 Pulse Ox 100 100 99 Oxygen Delivery Method Room Air 05/20/25 16:20 05/20/25 16:25 05/20/25 16:30 Temperature Temperature Source Pulse Rate 54 L 55 L 55 L Respiratory Rate 14 17 24 H Blood Pressure 118/59 L 97/76 112/63 Blood Pressure Mean 75 83 71 Pulse Ox 100 100 100 Oxygen Delivery Method 05/20/25 16:35 05/20/25 16:40 05/20/25 16:45 Temperature Temperature Source Pulse Rate 55 L 56 L 54 L Respiratory Rate 24 H 18 19 H Blood Pressure 109/95 H 107/64 110/59 L Blood Pressure Mean 102 78 74 Pulse Ox 100 100 100 Oxygen Delivery Method 05/20/25 16:50 05/20/25 16:55 05/20/25 17:00 Temperature Temperature Source Pulse Rate 55 L 55 L Respiratory Rate 18 19 H Blood Pressure 109/60 110/56 L 110/73 Blood Pressure Mean 75 71 84 Pulse Ox 98 99 99 Oxygen Delivery Method 05/20/25 17:05 05/20/25 17:26 Temperature 98.2 F Temperature Source Pulse Rate 59 L 59 L Respiratory Rate 27 H 23 H Blood Pressure 113/70 122/86 H Blood Pressure Mean 75 98 Pulse Ox 100 100 Oxygen Delivery Method MDM MDM MDM Narrative Medical decision making narrative: HISTORY OF PRESENT ILLNESS: Chief complaint: Dizziness, chest pain 84-year-old female history of hyperlipidemia, hypertension, presents with chest pain. She notes Left-sided chest pain that began this morning approximate 8 AM approximately 5 hours prior to arrival. She also notes some dizziness and lightheadedness as well. Pain is not exertional. Is not ripping or tearing. The patient denies recent surgery in the last 4 weeks or immobilization in the last 3 days, denies previous diagnosis of DVT or PE, hemoptysis, unilateral leg swelling or malignancy with treatment the last 6 months or palliative. No estrogen use noted. Patient denies sudden onset of pain, no tearing sensation, no migratory symptoms, no new numbness, weakness or loss of sensation. Patient denies family history or personal history of Connective tissue disorders (Marfan's Syndrome, Aristeo Danlos etc) REVIEW OF SYSTEMS: Pertinent positives: Pertinent negatives: [] PHYSICAL EXAM: Nursing triage notes reviewed, Vital signs reviewed Constitutional: please see mdm HENT: MMM Eyes: Pupils equal round and reactive to light, Extraocular muscles intact Neck: No stridor, no JVD, full neck ROM Lungs: Clear to auscultation, No wheezing or rales. No increased work of breathing, no conversational dyspnea, no accessory muscle use, no nasal flaring. No respiratory distress noted Heart: Regular rate and rhythm, No murmurs, No rubs and No gallops, 2+ distal pulses (radial, femoral, posterior tibial) in all extremities Abdomen: Soft, there is no tenderness, rigidity, rebound or guarding, no obvious peritoneal signs, no palpable pulsatile abdominal masses, no auscultated abdominal bruit : No CVAT Extremities: No edema Neuro: alert and oriented x3, neuro exam at baseline, cranial nerves II through XII are intact. No pain with extraocular muscle movement. There is negative test of skew. 5 of 5 strength in upper and lower extremities in flexion extension. Intact sensation to light touch in upper and lower extremity dermatomes. No truncal or extremity ataxia. No dysdiadochokinesia. Normal gait. 2+ reflexes in upper and lower extremities. No meningeal signs. Negative Babinski. NIH of 0. Skin: No rash or lesions noted MEDICAL DECISION MAKING: Chief Complaint: [facility] see [facility] External records reviewed: Reviewed prior cardiovascular testing: Reviewed echocardiogram from 2019 which showed ejection fraction 65% Factors affecting care: As per [facility] Social determinants of health: Denies illicit drug use such as cocaine or methamphetamine History obtained from others: none Consults: Cardiology (Dr. Ryder) -recommended aspirin, heparin, statin and possible cath in the morning. Discussed case Internal medicine (Dr. Parsons)?recommended admission to PCU full MDM Narrative: The patient was initially hypertensive with blood pressure 181/99 otherwise afebrile and nontoxic-appearing. Exam without focal cardiopulmonary normalities. TTP over left shoulder. I considered the following differential diagnosis: ACS, arrhythmia, anemia, electrolyte disturbance, pneumothorax, pneumonia, PE, aortic dissection I obtained a broad lab and imaging to further determine if the patient was suffering from a life-threatening etiology. ALL IMAGES (IF OBTAINED) HAVE BEEN PERSONALLY REVIEWED AND INTERPRETED BY MYSELF. EKG with sinus bradycardia rate 59, left axis deviation, right bundle branch block, QTc 427, no obvious to Initial troponin elevated consistent with myocardial ischemia CBC without leukocytosis, severe anemia, no thrombocytopenia. No coagulopathy D-dimer negative making VTE and aortic dissection less like BNP within normal limit BMP without evidence of significant electrolyte abnormalities, no anion gap, no acute kidney injury. I have personally reviewed the patient's chest x-ray. Chest x-ray is unremarkable for pulmonary edema, pneumothorax, pneumonia or focal cardiopulmonary abnormality. X-ray left shoulder was read reviewed personally myself showed no evidence of obvious bony abnormality Discussed with cardiology recommended admission and possible catheterization urgently. Patient remained chest pain-free. Repeat troponin continued to uptrend. Patient was started on heparin. On reevaluation patient main chest pain free. Blood pressure improved to 122/86. Discussed with Dr. Parsons he recommended PCU full admission The patient and/or family, caregivers express understanding. The patient and/or family, caregivers agrees with the plan. Shared decision making: I will have a discussion with the patient and or visitors regarding risk/benefits of further testing or admission. They will be made aware of of the risk/benefits inherent in this decision they will be given the opportunity to voice understanding. Total critical care time today provided was at least 35 minutes. This excludes separately billable procedures. Critical care time (if documented) is secondary to the patient having high probability of clinically significant/life threatening deterioration in the patient's condition which required my urgent intervention. Impression: 1. Acute chest pain 2. NSTEMI 3. History of hypertension Dispo: Admit to PCU This note was generated with [employer] dictation software. It may contain incorrect words, spelling, and punctuation that were not noted in review of the chart prior to signing. Lab Data Labs: Laboratory Results - last 24 hr 05/20/25 05/20/25 14:25 17:00 WBC 9.9 RBC 4.30 Hgb 13.3 Hct 40.0 MCV 93.0 MCH 30.9 MCHC 33.3 RDW Std Deviation 43.8 RDW Coeff of [place] 12.8 Plt Count 262 MPV 10.4 Immature Gran % (Auto) 0.300 Neut % (Auto) 60.8 Lymph % (Auto) 28.8 [place] % (Auto) 7.2 Eos % (Auto) 2.4 Baso % (Auto) 0.5 Absolute Neuts (auto) 6.0 Absolute Lymphs (auto) 2.84 Nucleated RBC % 0 PT 12.1 INR 0.9 APTT 27.6 D-Dimer Quant (PE/DVT) 0.27 Sodium 134 Potassium 3.4 Chloride 97 L Carbon Dioxide 24.3 Anion Gap 13 BUN 18 Creatinine 1.09 Estim Creat Clear Calc 32.48 L Est GFR (MDRD) Non-Af 50 L BUN/Creatinine Ratio 16.6 Glucose 130 H Calcium 9.5 Troponin T High Sens 105 H* Troponin T Hi Sens 2 Hr 153 H* NT pro BNP II 942 Radiography Diagnostic Testing: Clinical Impression(s) from Imaging Studies Chest X-Ray 05/20/25 14:58 IMPRESSION: No focal consolidations. Reading Location: [facility] Shoulder X-Ray 05/20/25 15:59 IMPRESSION: No acute osseous abnormality of the left shoulder. 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 Reading Location: [facility] Discharge Plan Triage Chief Complaint: Chest Pain ED Provider: Devin Piña Dx/Rx/DC Orders Primary Care Provider: Liane Stephenson What to do if you have Problems For any increased pain, shortness of breath, bleeding, nausea or vomiting, chest pain, or any unexpected problems, contact your Primary Care Provider. Call [facility] ([phone]) or report to the closest Emergency Room. Call 911 if necessary. 05/20/251827 <Electronically signed by Devin Piña DO> Cosigner Signature (if applicable): CC: Dr. Liane Stephenson DO ~ Signed [facility] Work Phone: [phone]) 212-117505-09-2024 Discharge summary Author Gaurav Parker [facility] March 16, 2024 8:45pm Note Date/Time March 16, 2024 8:45pm [facility] Medical Records Department [address] [place] [address] Emergency Department Summary 03/16/24 MR#: [id number] Acct: [id number] Name: EUGENIE MATA Rep #:[id number] : 1940 83 From: Gaurav Parker DO [...] not clean it out with peroxide. PFSH PFS Medical History HLD (hyperlipidemia) HTN (hypertension) Macular [...] your Primary Care Provider. Call [facility] ([phone]) or report to the closest Emergency Room. Call 911 if necessary. 03/16/242044 <Electronically signed by Gaurav Parker DO> Cosigner Signature (if applicable): CC: Dr. Liane Stephenson DO ~ Signed [facility] Work Phone: 1(984) 622-450708-24-2021 NoteHNO ID: [id number] Author: Mindy Nascimento APRN.CLINICAL TEAM LEAD Service: ? Author Type: Nurse Practitioner Type: [...] 3. Rectum, polypectomy (C) - Hyperplastic polyp. [facility]/ 06/08/2016 COMMENT 2. (B). Additional histologic sections [...] SURG[facility] Colon[facility] WNL - [facility] 11/23/05 Colon[facility] - [facility] 02/03/11 - [facility] 06/05/16 Colonoscopy - DANDC, DIAG AND/OR [...] Adenomatous polyp of asce (more content not included)...[facility]07-22-2021 NoteHNO ID: [id number] Author: Gracy Aguilar RN Service: ? Author Type: Registered Nurse Type: Nursing Progress Note Filed: 05/29/2021 8:40 AM Note Text: Patient sitting up in bed tolerating snack and drink without problems. Gracy Aguilar RNFayette [facility] HospitalEvaluation noteNo assessment information availableWHolzer Hospital Work Phone: Evaluation note* Diagnosis Onset Date Resolution Status Acute pancreatitis acute Hepatitis acute Nausea & vomiting acute Transaminitis acute [facility] Work Phone: Evaluation note* Diagnosis Onset Date Resolution Status Acute pancreatitis resolved Hepatitis resolved Nausea & vomiting resolved Transaminitis resolved [facility] Work Phone: Evaluation note* Diagnosis Onset Date Resolution Status Admit Date NSTEMI, initial episode of care acut e May 20, 2025 5:47pm [facility] Work Phone: Reason for referral (narrative)No reason for referral information availableWHolzer Hospital Work Phone: Summary Purpose Family History [...] Yes May 31, 2021 3:12pm Power of Cage Maker Yes May 31 3:12pm Advance Directive Response Recorded Date/ Time Name of Medical Power of Cage Maker Fabrizio Chaner October 07, 2022 6:05pm Advance Directives Yes December 6:24pm Living Will Yes October 07, 022 6:05pm Power of Cage Maker Yes October 07, 2022 6:05pm Advance Directive Response Recorded Date/ Time Name of Medical Power of Cage Maker Fabrizio Mata October 07, 2022 6:05pm Advance Directives Yes December 6:24pm Living Will No January 01, 2 023 10:47pm Power of Cage Maker No January 01, 2023 10:47pm Advance Directive Response Recorded Date/ Time Advance Directives Yes December 7:24pm Living Will No January 01, 2 023 11:47pm Power of Cage Maker No January 01, 2023 11:47pm Advance Directive Response Recorded Date/ Time Advance Directives Yes December 6:24pm Living Will No January 01, 2 023 10:47pm Power of Cage Maker No January 01, 2023 10:47pm Advance Directive Response Recorded Date/ Time Advance Directives Yes December 7:24pm Living Will No March 16, 2024 8: 27pm Power of Cage Maker No March 16, 2024 8:27pm Advance Directive Response Recorded Date/ Time Living Will No March 16, 2024 8: 27pm Do you have a Healthcare Power of Cage Maker? No March 16, 2024 8:27pm Advance Directives Yes December 7:24pm Advance Directive Response Recorded Date/ Time Do you have a Healthcare Power of Cage Maker? Yes May 20, 2025 2:36pm Name of Medical Power of Cage Maker Fabrizio Adolfo May 20, 2025 2:36pm Advance Directives Yes December 7:24pm Advance Directive Response Recorded Date/ Time Do you have a Healthcare Power of Cage Maker? Yes May 20, 2025 8:04pm Name of Medical Power of Cage Maker Fabrizio Mata May 20, 2025 8:04pm Advance Directives Yes December 7:24pm Chief Complaint [...] 10:24am FASTING April 10, 2025 7:47a m Chief Complaint Admit Date FASTING April 10, 2025 7:47a m CHEST PAIN, NSTEMI May 20, 2025 5:47 pm Reason for Visit Admit Date NSTEMI, initial episode of care May 5:47pm Chief Complaint Admit Date FASTING April 10, 2025 7:47a m CHEST PAIN, NSTEMI May 20, 2025 5:47 pm CHEST PAIN, NSTEMI May 21, 2025 9:56 am CHEST PAIN, NSTEMI May 21, 2025 10:3 6am CHEST PAIN, NSTEMI May 22, 2025 7:19 am CHEST PAIN, NSTEMI May 22, 2025 7:54 am Reason for Visit Admit Date Dementia May 20, 2025 5:47 pm HLD (hyperlipidemia) May 20, 2025 5:4 7pm NSTEMI, initial episode of care May 5:47pm HTN (hypertension) May 20, 2025 5:47 pm Additional Source Comments INFORMATION SOURCE (unrecogn ized section and content) DATE CREATED AUTHOR 12/04/2021 [facility] DATE CREATED AUTHOR AUTHOR'S ORGANIZ ATION 05/23/2025 [facility] Goals (unrecognized section and [...] Status: Active Member Role Status Dates Dr. Adelina Avila MD Family Provider Active Liane Stephenson Primary Care Provider Active Team Status: Active Member Role Status Dates Dr. Liane Stephenson DO Primary Care Provider Active Dr. Fabrizio Maier MD Emergency Provider Active Dr. Ignacia Pasrons MD Admit Provider, Attending Provider, Other Provider Active Team Status: Active Member Role Status Dates Dr. Liane Stephenson DO Primary Care Provider Active Dr. Fabrizio Maier MD Emergency Provider Active Dr. Ignacia Parsons MD Admit Provider, Other Provider Active Dr. Rafa Morrow DO Referring Provider, Other Pro vider Active Dr. Chico Domingo , DO Attending Provider Active Team Status: Active Member Role Status Dates Dr. Liane Stephenson DO Primary Care Provider Active Dr. Fabrizio Maier MD Emergency Provider Active Dr. Ignacia Parsons MD Admit Provider, Other Provider Active Dr. Rafa Mrorow DO Attending Provider, Other Pro vider Active [...] Status: Active Member Role Status Dates Dr. Adelina Avila MD Family Provider Active Liane CAMPOS [...] Status: Active Member Role Status Dates Dr. Adelina Avila MD Family Provider Active Dr. Liane Stephenson DO Primary Care Provider Active Team Status: Inactive Member Role Status Dates Dr. Liane Stephenson DO Primary Care Provider Active Jessie Zabala DREDGE MASTER-C Attending Provider, Referring Pro vider Active Team [...] Status: Active Member Role Status Dates Dr. Adelina Avila MD Family Provider Active Carlenefredy Arriaga DREDGE MASTER-C Primary Care Provider Active Team Status: Inactive Member Role Status Dates Dr. Liane Stephenson DO Attending Provider, Referring Prov ider Active Carlene Arriaga DREDGE MASTER-C Primary Care Provider Active Team Status: Inactive Member Role Status Dates Carlene Arriaga DREDGE MASTER-C Primary Care Provider, Attending P rovider Active [...] April 10, 2025 End: April 10, 2025 Team Status: Active Member Role/Relationship Status Dates Dr. Liane Stephenson DO Primary Care Provider Active Team Status: Inactive Member Role/Relationship Status Dates Dr. Liane Stephenson DO Primary Care Provider Active Start: April 10, 2025 End: April 10, 2025 Dr. Liane Stephenson DO Attending Provider Active St art: April 10, 2025 End: April 10, 2025 Dr. Liane Stephenson DO Referring Provider Active St art: April 10, 2025 End: April 10, 2025 Team Status: Active Member Role/Relationship Status Dates Dr. Liane Stephenson DO Primary Care Provider Active Start: May 20, 2025 Dr. Devin Piña DO Emergency Provider Active Start: May 20, 2025 Dr. Ignacia Parsons MD Admit Provider Active St art: May 20, 2025 Dr. Ignacia Parsons MD Attending Provider Active Start: May 20, 2025 Dr. Ignacia Parsons MD Other Provider Active St art: May 20, 2025 Team Status: Inactive Member Role/Relationship Status Dates Dr. Liane Stephenson DO Primary Care Provider Active Start: May 20, 2025 End: May 22, 2025 Dr. Devin Pñia DO Emergency Provider Active Start: May 20, 2025 End: May 22, 2025 Dr. Ignacia Parsons MD Admit Provider Active St art: May 20, 2025 End: May 22, 2025 Dr. Ignacia Parsons MD Other Provider Active St art: May 20, 2025 End: May 22, 2025 Dr. Miller Cross MD Attending Provider Active Start: May 20, 2025 End: May 22, 2025 Dr. Sharon Dugan MD Other Provider Active Start: May 20, 2025 End: May 22, 2025 Dr. Ade Ryder MD Other Provider Active Start : May 20, 2025 End: May 22, 2025 Dr. Pola Dumont MD Other Provider Active St art: May 20, 2025 End: May 22, 2025 Dr. Tavo Wilson MD Other Provider Active Star t: May 20, 2025 End: May 22, 2025 Dr. Caleb Guardado MD Other Provider Active Sta rt: May 20, 2025 End: May 22, 2025 Dr. Martinez Hoang MD Other Provider Active Star t: May 20, 2025 End: May 22, 2025 Dr. Hansel Vasques MD Other Provider Active Start : May 20, 2025 End: May 22, 2025 Dr. Alcira Thakur MD Other Provider Active Star t: May 20, 2025 End: May 22, 2025 Dr. Luis Dominguez MD Other Provider Active St art: May 20, 2025 End: May 22, 2025 Dr. Chica Peters MD Other Provider Active Start: May 20, 2025 End: May 22, 2025 Dr. Martin Arias MD Other Provider Active S tart: May 20, 2025 End: May 22, 2025 Dr. Bryan Syed MD Other Provider Active Start: May 20, 2025 End: May 22, 2025 Adelina Shahid DREDGE MASTER, DREDGE MASTER-C Other Provider Active Start : May 20, 2025 End: May 22, 2025 Brigida Dixon PA, PA Other Provider Active Start: May 20, 2025 End: May 22, 2025 RAMIN Rodas Other Provider Active Start: May 20, 2025 End: May 22, 2025 Team Status: Active Member Role/Relationship Status Dates Dr. Liane Stephenson , DO Primary Care Provider Active Start: May 21, 2025 Dr. Devin Piña , DO Emergency Provider Active Start: May 21, 2025 Dr. Ignacia Parsons MD Admit Provider Active St art: May 21, 2025 Dr. Ignacia Parsons MD Other Provider Active St art: May 21, 2025 Dr. Miller Cross MD Attending Provider Active Start: May 21, 2025 Dr. Miller Cross MD Other Provider Active Star t: May 21, 2025 Dr. Sharon Dugan MD Other Provider Active Start: May 21, 2025 Dr. Ade Ryder MD Other Provider Active Start : May 21, 2025 Dr. Pola Dumont MD Other Provider Active St art: May 21, 2025 Dr. Tavo Wilson MD Other Provider Active Star t: May 21, 2025 Dr. Caleb Guardado MD Other Provider Active Sta rt: May 21, 2025 Dr. Martinez Hoang MD Other Provider Active Star t: May 21, 2025 Dr. Hansel Vasques MD Other Provider Active Start : May 21, 2025 Dr. Alcira Thakur MD Other Provider Active Star t: May 21, 2025 Dr. Luis Dominguez MD Other Provider Active St art: May 21, 2025 Dr. Chica Peters MD Other Provider Active Start: May 21, 2025 Dr. Martin Arias MD Other Provider Active S tart: May 21, 2025 Dr. Bryan Syed MD Other Provider Active Start: May 21, 2025 Adelina Shahid DREDGE MASTER, DREDGE MASTER-C Other Provider Active Start : May 21, 2025 Brigida FAUSTIN, PA Other Provider Active Start: May 21, 2025 RAMIN Rodas Other Provider Active Start: May 21, 2025 Team Status: Active Member Role/Relationship Status Dates Dr. Liane Stephenson DO Primary Care Provider Active Start: May 21, 2025 Dr. Tavo Wilson MD Attending Provider Active Start: May 21, 2025 Team Status: Active Member Role/Relationship Status Dates Dr. Liane Stephenson DO Primary Care Provider Active Start: May 21, 2025 Dr. Devin Piña DO Emergency Provider Active Start: May 21, 2025 Dr. Ignacia Parsons MD Admit Provider Active St art: May 21, 2025 Dr. Ignacia Parsons MD Other Provider Active St art: May 21, 2025 Dr. Miller Cross MD Other Provider Active Star t: May 21, 2025 Dr. Sharon Dugan MD Other Provider Active Start: May 21, 2025 Dr. Ade Ryder MD Other Provider Active Start : May 21, 2025 Dr. Pola Dumont MD Other Provider Active St art: May 21, 2025 Dr. Tavo Wilson MD Other Provider Active Star t: May 21, 2025 Dr. Caleb Guardado MD Other Provider Active Sta rt: May 21, 2025 Dr. Martinez Hoang MD Other Provider Active Star t: May 21, 2025 Dr. Hansel Vasques MD Other Provider Active Start : May 21, 2025 Dr. Alcira Thakur MD Other Provider Active Star t: May 21, 2025 Dr. Luis Dominguez MD Attending Provider Active Start: May 21, 2025 Dr. Luis Dominguez MD Other Provider Active St art: May 21, 2025 Dr. Chica Peters MD Other Provider Active Start: May 21, 2025 Dr. Martin Arias MD Other Provider Active S tart: May 21, 2025 Dr. Bryan Syed MD Other Provider Active Start: May 21, 2025 Adelina Shahid DREDGE MASTER, DREDGE MASTER-C Other Provider Active Start : May 21, 2025 Brigida Dixon PA, PA Other Provider Active Start: May 21, 2025 RAMIN Rodas Other Provider Active Start: May 21, 2025 Team Status: Active Member Role/Relationship Status Dates Dr. Liane Stephenson DO Primary Care Provider Active Start: May 22, 2025 Dr. Devin Piña DO Emergency Provider Active Start: May 22, 2025 Dr. Ignacia Parsons MD Admit Provider Active St art: May 22, 2025 Dr. Ignacia Parsons MD Other Provider Active St art: May 22, 2025 Dr. Miller Cross MD Attending Provider Active Start: May 22, 2025 Dr. Miller Cross MD Other Provider Active Star t: May 22, 2025 Dr. Sharon Dugan MD Other Provider Active Start: May 22, 2025 Dr. Ade Ryder MD Other Provider Active Start : May 22, 2025 Dr. Pola Dumont MD Other Provider Active St art: May 22, 2025 Dr. Tavo Wilson MD Other Provider Active Star t: May 22, 2025 Dr. Caleb Guardado MD Other Provider Active Sta rt: May 22, 2025 Dr. Martinez Hoang MD Other Provider Active Star t: May 22, 2025 Dr. Hansel Vasques MD Other Provider Active Start : May 22, 2025 Dr. Alcira Thakur MD Other Provider Active Star t: May 22, 2025 Dr. Luis Dominguez MD Other Provider Active St art: May 22, 2025 Dr. Chica Peters MD Other Provider Active Start: May 22, 2025 Dr. Martin Arias MD Other Provider Active S tart: May 22, 2025 Dr. Bryan Syed MD Other Provider Active Start: May 22, 2025 Adelina Shahid DREDGE MASTER, DREDGE MASTER-C Other Provider Active Start : May 22, 2025 Brigida Dixon PA, PA Other Provider Active Start: May 22, 2025 RAMIN Rodas Other Provider Active Start: May 22, 2025 Team Status: Active Member Role/Relationship Status Dates Dr. Liane Stephenson , Primary Care Provider Active Start: May 22, 2025 Dr. Devin Piña , Emergency Provider Active Start: May 22, 2025 Dr. Ignacia Parsons MD Admit Provider Active St art: May 22, 2025 Dr. Ignacia Parsons MD Other Provider Active St art: May 22, 2025 Dr. Miller Cross MD Other Provider Active Star t: May 22, 2025 Dr. Sharon Dugan MD Other Provider Active Start: May 22, 2025 Dr. Ade Ryder MD Other Provider Active Start : May 22, 2025 Dr. Pola Dumont MD Other Provider Active St art: May 22, 2025 Dr. Tavo Wilson MD Other Provider Active Star t: May 22, 2025 Dr. Caleb Guardado MD Other Provider Active Sta rt: May 22, 2025 Dr. Martinez Hoang MD Other Provider Active Star t: May 22, 2025 Dr. Hansel Vasques MD Other Provider Active Start : May 22, 2025 Dr. Alcira Thakur MD Other Provider Active Star t: May 22, 2025 Dr. Luis Dominguez MD Attending Provider Active Start: May 22, 2025 Dr. Luis Dominguez MD Other Provider Active St art: May 22, 2025 Dr. Chica Peters MD Other Provider Active Start: May 22, 2025 Dr. Martin Arias MD Other Provider Active S tart: May 22, 2025 Dr. Bryan Syed MD Other Provider Active Start: May 22, 2025 Adelina Shahid DREDGE MASTER, DREDGE MASTER-C Other Provider Active Start : May 22, 2025 Brigida FAUSTIN, PA Other Provider Active Start: May 22, 2025 RAMIN Rodas Other Provider Active Start: May 22, 2025 FOR RECORDS PERTAINING TO PATIENTS WHO [...] BE BASED ON THE PRIMARY CLINICAL RECORDS. [facility]. provides no warranty or guarantee of the accuracy or completeness of information in this document.
[2025-05-27 22:00] LABS: Hematocrit 33.9 % (37-47); Hemoglobin 11.3 g/dL (12.0-15.0); Immature Granulocytes Count 0.010 X10^3/uL (0.0-0.0); Mean Corp Hgb Conc 33.3 g/dL (32-36); Mean Corpuscular Volume 93.9 fL (81-99); Mean Platelet Vol. 9.9 fl (6.2-12.0); NRBC Flagged by Analyzer 0 % (0-5); Platelet Count 257 K/mm3 (150-450); RBC Distribution Width CV 13.4 % (11.6-14.6); RBC Distribution Width SD 46.0 fl (35.1-43.9); Red Blood Count 3.61 M/mm3 (4.2-5.4); White Blood Count 10.0 K/mm3 (4.4-11.0)
--- NOTE | 2025-05-27 22:00 | RAD_ITS ---
PROCEDURE: CHEST 1 VIEW (PORTABLE) 05/27/2025 REASON FOR EXAM: CHEST PAIN TECHNIQUE: Frontal view of the chest. COMPARISON: Chest radiograph on 05/20/2025 and 05/31/2021 FINDINGS: Hardware: Spinal stimulator leads are unchanged. Heart: Cardiac and mediastinal contours are stable. Aortic atherosclerosis. Lungs: No focal consolidation or significant pleural effusion. Nodular opacity in the right mid lung zone measuring 4 mm remains unchanged, possibly calcified granuloma. Bones: Degenerative changes are identified within the thoracic spine. Surgical clips in the right upper quadrant of the abdomen. Lumbar spine hardware partially imaged. RAD/Chest 1 View (Portable) IMPRESSION: No acute cardiopulmonary abnormality. Reading Location: [facility]
[2025-05-27 22:19] VITALS: BP 137/69; PULSE 62; RESP 18; O2SAT 98
[2025-05-27 22:34] LABS: Anion Gap 10 (5-15); BUN 19 mg/dL (4-19); BUN/Creat Ratio 16.0 RATIO (10-20); Calcium,Total 8.6 mg/dL (7.6-11.0); Carbon Dioxide 22.0 mmol/L (21.0-32.0); Chloride 110 mmol/L (98-108); Estimated Creatinine Clearance 29.48 ml/min (50-250); Glucose 85 mg/dL (70-99); Potassium 3.8 mmol/L (3.3-5.1)
[2025-05-27 22:40] LABS: Troponin T High Sensitivity 206 ng/L (<=14)
--- NOTE | 2025-05-27 22:52 | PCM.HP.STD ---
[facility] - General General Date of Admission: 05/27/25 Date of Service: 05/27/25 Chief Complaint: Chest Pain with Activity. HPI Narrative MELYSSA MATA, is a 84 F with a past medical history of essential hypertension; on trandolapril on metoprolol, hyperlipidemia; on atorvastatin, overweight; with BMI of 29.1 this admission, CAD; s/p non-ST elevation WI diagnosed during recent admission here from May 20, 2025 to May 22, 2025 with patient initially treated with IV heparin, clopidogrel, metoprolol and statin with store keeper recommended conservative management at that point in time with patient discharged home on Imdur and SL NTG with echocardiogram that revealed LVEF ~65% with stage I diastolic dysfunction and 1-2+ posteriorly directed mitral valve insufficiency in addition to aortic valve sclerosis without stenosis, history of dementia; on memantine twice daily, history of SAYDA, macular degeneration, history of cholecystectomy, gout; on allopurinol and OA; s/p Left TKR with history of spinal fusion who re-presents to [facility] ER complaining of chest pain with activity. Mrs. Mata reports her symptoms began ~1 week prior to admission with similar chest pain to her last admission that is made with exertion. She describes her chest pain as left-sided, pressure-like, ~8/10 and nonradiating with SL NTG seeming to help her pain but not fully resolved it. She currently denies chest pain at this time but she does admit to lethargy and both the patient and are concerned that she needs an [facility] so they decided to come back in for further evaluation and treatment. There was no reported fever, chills, changes in vision, discharge from eyes, runny nose, sore throat, ear pain, shortness of breath, cough, abdominal pain, nausea, vomiting, diarrhea, constipation, dysuria, hematuria, arthralgias, myalgias, headache or rash. In the ER she was noted to have an elevated initial troponin T of 206 ng/L due to suspected non-ST elevation WI that is failing conservative medical management with a CXR that revealed no acute cardiopulmonary abnormality and she was then admitted to the PCU for ongoing care for a stay that is expected to extend beyond 2 midnights. [facility] Medical History (Updated 05/28/25 @ 03:[address] Miller Rush DO) HLD (hyperlipidemia) HTN (hypertension) Dementia Gout Overweight Chronic kidney disease (CKD), stage III (moderate) Stenosis of retinal artery Macular degeneration Home Medications ?Medication ?Instructions ?Recorded ?Last Taken ?Type atorvastatin 40 mg tablet 40 mg PO QHS CHOLESTEROL 10/07/22 10/06/22 History clopidogrel 75 mg tablet 75 mg PO DAILY BLOOD THINNER 10/07/22 10/06/22 History ursodiol 250 mg tablet 250 mg PO BID gallbladder #60 tabs 10/09/22 Unknown Rx allopurinol 100 mg tablet 100 mg PO DAILY gout 05/20/25 Unknown History memantine 10 mg tablet 10 mg PO BID memory 05/20/25 Unknown History trandolapril 4 mg tablet 4 mg PO DAILY blood pressure 05/20/25 Unknown History isosorbide mononitrate 30 mg 30 mg PO DAILY #90 tabs 05/22/25 Unknown Rx tablet,extended release 24 hr metoprolol tartrate 25 mg tablet 12.5 mg (1/2 x 25 mg) PO DAILY 90 05/22/25 Unknown Rx days #45 tabs nitroglycerin 0.4 mg sublingual 0.4 mg sublingual Q5M PRN CHEST 05/22/25 Unknown Rx tablet PAIN #30 tabs Allergy/AdvReac Type Severity Reaction Status Date / Time aspirin AdvReac Unknown Verified 05/27/25 21:19 Family History Father Myocardial infarction Brother Myocardial infarction CVA (cerebral vascular accident) Mother Heart disease Surgical History H/O: hysterectomy History of knee replacement procedure of left knee History of spinal fusion Hx of cholecystectomy Social History household members: spouse Smoking Status: Never smoker alcohol intake: never substance use type: does not use ROS ROS Narrative Review of Systems: Constitutional: Patient admits to lethargy but she denies fever or chills. Eyes: Patient denies change in vision or discharge from eyes. ENT: Patient denies runny nose, sore throat or ear pain. Resp: Patient denies shortness of breath or cough. CV: Patient admits to Left-sided chest pain that is pressure-like, substernal and nonradiating somewhat improved after SL NTG as per HPI. GI: Patient denies abdominal pain, nausea, vomiting, diarrhea or constipation. : Patient denies dysuria or hematuria. MSK: Patient denies arthralgias or myalgias. Skin: Patient denies rash, abscess, wounds or jaundice. Psych: Patient denies symptoms uncontrolled depression or anxiety. Neuro: Patient denies headache, paresthesias or focal neurologic deficits. Allergy: Patient denies lip swelling, tongue swelling or urticaria. Hematology: Patient denies easy bleeding or easy bruisability. Endocrinology: Patient denies polyuria, polydipsia, polyphagia or heat/cold intolerance. 14 point ROS otherwise negative except for positives noted above in HPI. Vital Signs Vital Signs Vital Signs: 05/27/25 21:19 05/27/25 21:43 05/27/25 22:19 Temperature 97 F L Temperature Source Temporal Pulse Rate 72 62 Respiratory Rate 20 H 18 Respiratory Effort Normal Blood Pressure 146/80 H 137/69 H Blood Pressure Mean 102 91 Pulse Ox 99 98 Oxygen Delivery Method Room Air Room Air Weight Weight: 139 lb 5.314 oz Body Mass Index (BMI) 29.1 Physical Exam Const alert, oriented x3, no apparent distress, average body habitus and healthy appearing General Appearance: cooperative HEENT normocephalic, head/scalp atraumatic, hearing grossly normal bilaterally and moist oral mucous membranes Eyes PERRL, EOMs intact bilaterally and conjunctivae normal Neck no lymphadenopathy, supple and no JVD Resp normal respiratory effort, no retractions, no use of accessory muscles and clear to auscultation bilaterally Cardio regular rate and regular rhythm GI normal to inspection, nondistended, normoactive bowel sounds, soft to palpation, non-tender and non-distended Extremity normal to inspection, full ROM and no clubbing, cyanosis or edema Skin Skin Narrative: Patient has evidence of rash, abscess, wounds or jaundice. Neuro oriented x3, CN's II-XII intact bilaterally, moves all extremities and no focal motor deficits Sensorium / Orientation: awake, alert, oriented to person, oriented to place and oriented to time Speech: speech normal Psych affect normal Results Lab / Micro Data 05/27/25 21:46 05/27/25 21:46 Labs: Laboratory Results - last 24 hr 05/27/25 21:46: WBC 10.0, RBC 3.61 L, Hgb 11.3 L, Hct 33.9 L, MCV 93.9, MCH 31.3, MCHC 33.3, RDW Std Deviation 46.0 H, RDW Coeff of [place] 13.4, Plt Count 257, MPV 9.9, Immature Gran % (Auto) 0.100, Neut % (Auto) 54.9, Lymph % (Auto) 32.3, Gage % (Auto) 8.8, Eos % (Auto) 3.2, Baso % (Auto) 0.7, Absolute Neuts (auto) 5.5, Absolute Lymphs (auto) 3.24, Nucleated RBC % 0, Sodium 142, Potassium 3.8, Chloride 110 H, Carbon Dioxide 22.0, Anion Gap 10, BUN 19, Creatinine 1.20, Estim Creat Clear Calc 29.48 L, Est GFR (MDRD) Non-Af 45 L, BUN/Creatinine Ratio 16.0, Glucose 85, Calcium 8.6, Troponin T High Sens 206 H* D Imaging Radiology Impression Chest X-Ray 05/27/25 22:00 IMPRESSION: No acute cardiopulmonary abnormality. Reading Location: [id number] Assessment & Plan Assessment/Plan (1) Non-ST elevated myocardial infarction: (2) Chest pain: QUALIFIERS: Chest pain type: chest pain due to myocardial ischemia Ischemic chest pain type: unstable angina pectoris Qualified Code(s): I20.0 - Unstable angina (3) HTN (hypertension): QUALIFIERS: Hypertension type: primary hypertension Qualified Code(s): I10 - Essential (primary) hypertension (4) HLD (hyperlipidemia): QUALIFIERS: Hyperlipidemia type: pure hypercholesterolemia Qualified Code(s): E78.00 - Pure hypercholesterolemia, unspecified (5) Dementia: QUALIFIERS: Dementia behavioral or psychological symptom: with other behavioral disturbance Dementia severity: unspecified severity Dementia type: unspecified type Qualified Code(s): F03.918 - Unspecified dementia, unspecified severity, with other behavioral disturbance (6) Overweight: PLAN: Plan 1. Non-STEMI with elevated troponin of 206 ng/L present on admission with consistent exertional Chest Pain that does not always resolve with rest - Admit to PCU. Continue IV heparin again in ER plus resume clopidogrel as previous. Patient has listed allergy to aspirin so this agent was withheld. Serialize troponin. Give acetaminophen as needed for [id number] (level 1-5/10) pain or fever. Give morphine IV as needed for severe (level 6-10/10) pain. ER physician was asked to contact store keeper to arrange patient for LHC in a.m. with chemical stress test ordered as well in case this information will be helpful in decision to proceed with LHC. Finally, we will consult [facility] see this patient on rounds in the a.m. for further recommendations with help appreciated advance. 2. CAD; s/p non-ST elevation WI diagnosed during recent admission here from May 20, 2025 to May 22, 2025 with patient initially treated with IV heparin, clopidogrel, metoprolol and statin with store keeper recommended conservative management at that point in time with patient discharged home on Imdur and SL NTG with echocardiogram that revealed LVEF ~65% with stage I diastolic dysfunction and 1-2+ posteriorly directed mitral valve insufficiency in addition to aortic valve sclerosis without stenosis complicating #1 - Noted with patient apparently failing conservative medical management. 3. Essential hypertension; on trandolapril on metoprolol compounding #1 & #2 - Continue home regimen plus give prn IV hydralazine for systolic blood pressure > 160 mmHg. 4. Hyperlipidemia; on atorvastatin exacerbating #1 - #3 - Resume statin. 5. Overweight; with BMI of 29.1 this admission adding to the burden of disease outlined from #1 - #4 - Weight loss will be recommended. Check TSH. 6. History of dementia; on memantine twice daily - Stable on current treatment which will be continued. 7. History of SAYDA - Noted. 8. Macular degeneration - Noted. 9. History of cholecystectomy - Noted for the sake of completeness. 10. Gout; on allopurinol - Stable with no evidence of acute flare at this time. Maintain allopurinol as previous. 11. OA; s/p Left TKR with history of spinal fusion - We will follow pain regimen and scaled outlined in #1. 12. DVT prophylaxis - Patient already on IV heparin for #1. Total time: Approximately (but not less than) 75 minutes. Charges/Coding Visit Charges Inpatient E&M: 41410 Init Hosp L3
[2025-05-27 23:00] VITALS: BP 143/70; PULSE 65; RESP 18; O2SAT 99
[2025-05-27 23:03] LABS: D-Dimer Quantitative (DVT/PE) 0.48 FEU/ug/m (0.27-0.49)
--- NOTE | 2025-05-27 23:07 | EKG12_ITS ---
Test Reason : CP ADMISSION Blood Pressure : */* mmHG Vent. Rate : 64 BPM Atrial Rate : 64 BPM P-R Int : 180 ms QRS Dur : 130 ms QT Int : 454 ms P-R-T Axes : 63 -51 24 degrees QTcB Int : 468 ms Normal sinus rhythm Left anterior fascicular block Right bundle branch block Abnormal ECG When compared with ECG of 27-May-2025 21:31, MANUAL COMPARISON REQUIRED DATA IS UNCONFIRMED Confirmed by Luis Dominguez ([id number]), senior technical editor KATTY MAHAJAN ([id number]) on 05/29/2025 5:43:00 AM Referred By: CHIRINOS Confirmed By: Luis Dominguez
[2025-05-27 23:09] LABS: Prothrombin Time (Protime)PT. 12.5 SECONDS (11.7-14.9)
[2025-05-27 23:10] LABS: Partial Thromboplast Time 26.6 Seconds (24.1-36.2)
[2025-05-27] MEDS: HEPARIN/D5w 25,000 UNITS 25,000 UNITS/250 ML IV.SOLN. 7.6 UNITS CONT INF (23:10)
[2025-05-27 23:16] VITALS: BP 143/70; PULSE 68; RESP 18; TEMP 36.6; O2SAT 98
--- OUTSIDE RECORDS SUMMARY | 2025-05-27 23:38 | XMS RPT_ITS | CCD ---
Author Organization [facility]iniSym[facility] Care Team Providers Care Bedspread Folder Name Role Phone Dr. Liane Stephenson Primary [...] Booker Other Provider Unavailable Tim ROBISON, Dr. Escalona Other Provider Steve ROBISON, Dr. Vo Other Provider Geo ROBISON, Dr. Ellis Other Provider Natalya ROBISON, Dr. Henriquez Other Provider Unavailable Layo ROBISON, Dr. Hamm Other Provider Ofe ROBISON, Dr. Eli Other Provider Angelica ROBISON, Dr. Smith Other Provider Lorraine ROBISON, Dr. Coto Other Provider Hugo ORBISON, Dr. Salazar Other Provider Yahaira ROBISON, Dr. Adams Other Provider Zehra [employer], Adelina Everett Other Provider Brigida Boles Other Provider Preston Corona Other Provider Tay ROBISON, Dr. Bhatt Other Provider Unavailable Steve [...] Consulting Unavailable Bryan Syed Consulting Unavailable Zehra [employer], Adelina Everett Consulting Unavailable Zack FAUSTIN, Brigida [...] 07-01-2021 Unknown [facility] Comment on above: PT HAS HX OF MACULAR DEGENERATION (1 source) Aspirin Drug Allergy 05-20-2025 [facility] Repository Medications Current Medications Medication Drug Class(es) [...] hydrochloride 10 mg oral tablet (2 sources) J-codstx-T-asparta te Receptor Antagonist Start: 05-20-2025 take 1 [...] Normal 4-19 [facility] Comment on above: Result Comment: Canc elled via OM: Order cancelled - Patient discharged Performed By: #### L 100.0100, L500.2500 #### [facility] [address] [place], [address] BUN/CRE Normal 10-20 [facility] Comment on above: Result Comment: Canc elled via OM: Order cancelled - Patient discharged Performed By: #### L 100.0100, L500.2500 #### [facility] [address] [place], [address] Calcium Normal 7.6-11.0 [facility] Comment on above: Result Comment: Canc elled via OM: Order cancelled - Patient discharged Performed By: #### L 100.0100, L500.2500 #### [facility] [address] [place], [address] CL Normal 98-108 [facility] Comment on above: Result Comment: Canc elled via OM: Order cancelled - Patient discharged Performed By: #### L 100.0100, L500.2500 #### [facility] [address] [place], [address] CO2 Normal 21.0-32.0 [facility] Comment on above: Result Comment: Canc elled via OM: Order cancelled - Patient discharged Performed By: #### L 100.0100, L500.2500 #### [facility] [address] [place], [address] CREAT,SERUM Normal 0.70-1.20 [facility] Comment on above: Result Comment: Canc elled via OM: Order cancelled - Patient discharged Performed By: #### L 100.0100, L500.2500 #### [facility] [address] [place], [address] eGFR Normal >60 [facility] Comment on above: Result Comment: Canc elled via OM: Order cancelled - Patient discharged Performed By: #### L 100.0100, L500.2500 #### [facility] [address] [place], [address] GAP Normal 5-15 [facility] Comment on above: Result Comment: Canc elled via OM: Order cancelled - Patient discharged Performed By: #### L 100.0100, L500.2500 #### [facility] [address] [place], [address] GLU Normal 70-99 [facility] Comment on above: Result Comment: Canc elled via OM: Order cancelled - Patient discharged Performed By: #### L 100.0100, L500.2500 #### [facility] [address] [place], [address] Potassium Normal 3.3-5.1 [facility] Comment on above: Result Comment: Canc elled via OM: Order cancelled - Patient discharged Performed By: #### L 100.0100, L500.2500 #### [facility] [address] [place], [address] Basic Metabolic Profile (BMP) Normal 133-145 [facility] Comment on above: Result Comment: Canc elled via OM: Order cancelled - Patient discharged Performed By: #### L 100.0100, L500.2500 #### [facility] [address] [place], [address] CBC W/Diff, Automatedon 07-1 Absolute Neut Normal 2.0-7.7 [facility] Comment on above: Result Comment: Canc elled via OM: Order cancelled - Patient discharged Performed By: #### L 100.0100, L500.2500 #### [facility] [address] [place], [address] HCT Normal 37-47 [facility] Comment on above: Result Comment: Canc elled via OM: Order cancelled - Patient discharged Performed By: #### L 100.0100, L500.2500 #### [facility] [address] [place], [address] HGB Normal 12.0-15.0 [facility] Comment on above: Result Comment: Canc elled via OM: Order cancelled - Patient discharged Performed By: #### L 100.0100, L500.2500 #### [facility] [address] [place], [address] MCH Normal 27.0-32.0 [facility] Comment on above: Result Comment: Canc elled via OM: Order cancelled - Patient discharged Performed By: #### L 100.0100, L500.2500 #### [facility] [address] [place], [address] MCHC Normal 32-36 [facility] Comment on above: Result Comment: Canc elled via OM: Order cancelled - Patient discharged Performed By: #### L 100.0100, L500.2500 #### [facility] [address] [place], [address] MCV Normal 81-99 [facility] Comment on above: Result Comment: Canc elled via OM: Order cancelled - Patient discharged Performed By: #### L 100.0100, L500.2500 #### [facility] [address] [place], [address] NEUT% Normal 47-70 [facility] Comment on above: Result Comment: Canc elled via OM: Order cancelled - Patient discharged Performed By: #### L 100.0100, L500.2500 #### [facility] [address] [place], [address] PLT Normal 150-450 [facility] Comment on above: Result Comment: Canc elled via OM: Order cancelled - Patient discharged Performed By: #### L 100.0100, L500.2500 #### [facility] [address] [place], [address] RBC Normal 4.2-5.4 [facility] Comment on above: Result Comment: Canc elled via OM: Order cancelled - Patient discharged Performed By: #### L 100.0100, L500.2500 #### [facility] [address] [place], [address] RDW CV Normal 11.6-14.6 [facility] Comment on above: Result Comment: Canc elled via OM: Order cancelled - Patient discharged Performed By: #### L 100.0100, L500.2500 #### [facility] [address] [place], [address] RDW SD Normal 35.1-43.9 [facility] Comment on above: Result Comment: Canc elled via OM: Order cancelled - Patient discharged Performed By: #### L 100.0100, L500.2500 #### [facility] [address] [place], [address] WBC Normal 4.4-11.0 [facility] Comment on above: Result Comment: Canc elled via OM: Order cancelled - Patient discharged Performed By: #### L 100.0100, L500.2500 #### [facility] [address] [place], [address] Basic Metabolic Profile (BMP )on 05-23-2025 BUN Normal 4-19 [facility] Comment on above: Result Comment: Canc elled via OM: Order cancelled - Patient discharged Performed By: #### L 500.2500, L503.7505, L501.4021, L300.8000, L100.0100 #### [facility] [address] [place], [address] BUN/CRE Normal 10-20 [facility] Comment on above: Result Comment: Canc elled via OM: Order cancelled - Patient discharged Performed By: #### L 500.2500, L503.7505, L501.4021, L300.8000, L100.0100 #### [facility] [address] [place], [address] Calcium Normal 7.6-11.0 [facility] Comment on above: Result Comment: Canc elled via OM: Order cancelled - Patient discharged Performed By: #### L 500.2500, L503.7505, L501.4021, L300.8000, L100.0100 #### [facility] [address] [place], [address] CL Normal 98-108 [facility] Comment on above: Result Comment: Canc elled via OM: Order cancelled - Patient discharged Performed By: #### L 500.2500, L503.7505, L501.4021, L300.8000, L100.0100 #### [facility] [address] [place], [address] CO2 Normal 21.0-32.0 [facility] Comment on above: Result Comment: Canc elled via OM: Order cancelled - Patient discharged Performed By: #### L 500.2500, L503.7505, L501.4021, L300.8000, L100.0100 #### [facility] [address] [place], [address] CREAT,SERUM Normal 0.70-1.20 [facility] Comment on above: Result Comment: Canc elled via OM: Order cancelled - Patient discharged Performed By: #### L 500.2500, L503.7505, L501.4021, L300.8000, L100.0100 #### [facility] [address] [place], [address] eGFR Normal >60 [facility] Comment on above: Result Comment: Canc elled via OM: Order cancelled - Patient discharged Performed By: #### L 500.2500, L503.7505, L501.4021, L300.8000, L100.0100 #### [facility] [address] [place], [address] GAP Normal 5-15 [facility] Comment on above: Result Comment: Canc elled via OM: Order cancelled - Patient discharged Performed By: #### L 500.2500, L503.7505, L501.4021, L300.8000, L100.0100 #### [facility] [address] [place], [address] GLU Normal 70-99 [facility] Comment on above: Result Comment: Canc elled via OM: Order cancelled - Patient discharged Performed By: #### L 500.2500, L503.7505, L501.4021, L300.8000, L100.0100 #### [facility] [address] [place], [address] Potassium Normal 3.3-5.1 [facility] Comment on above: Result Comment: Canc elled via OM: Order cancelled - Patient discharged Performed By: #### L 500.2500, L503.7505, L501.4021, L300.8000, L100.0100 #### [facility] [address] [place], [address] Basic Metabolic Profile (BMP) Normal 133-145 [facility] Comment on above: Result Comment: Canc elled via OM: Order cancelled - Patient discharged Performed By: #### L 500.2500, L503.7505, L501.4021, L300.8000, L100.0100 #### [facility] [address] [place], [address] CBC W/Diff, Automatedon 07-1 Absolute Neut Normal 2.0-7.7 [facility] Comment on above: Result Comment: Canc elled via OM: Order cancelled - Patient discharged Performed By: #### L 500.2500, L503.7505, L501.4021, L300.8000, L100.0100 #### [facility] [address] [place], [address] HCT Normal 37-47 [facility] Comment on above: Result Comment: Canc elled via OM: Order cancelled - Patient discharged Performed By: #### L 500.2500, L503.7505, L501.4021, L300.8000, L100.0100 #### [facility] [address] [place], [address] HGB Normal 12.0-15.0 [facility] Comment on above: Result Comment: Canc elled via OM: Order cancelled - Patient discharged Performed By: #### L 500.2500, L503.7505, L501.4021, L300.8000, L100.0100 #### [facility] [address] [place], [address] MCH Normal 27.0-32.0 [facility] Comment on above: Result Comment: Canc elled via OM: Order cancelled - Patient discharged Performed By: #### L 500.2500, L503.7505, L501.4021, L300.8000, L100.0100 #### [facility] [address] [place], [address] MCHC Normal 32-36 [facility] Comment on above: Result Comment: Canc elled via OM: Order cancelled - Patient discharged Performed By: #### L 500.2500, L503.7505, L501.4021, L300.8000, L100.0100 #### [facility] [address] [place], [address] MCV Normal 81-99 [facility] Comment on above: Result Comment: Canc elled via OM: Order cancelled - Patient discharged Performed By: #### L 500.2500, L503.7505, L501.4021, L300.8000, L100.0100 #### [facility] [address] [place], [address] NEUT% Normal 47-70 [facility] Comment on above: Result Comment: Canc elled via OM: Order cancelled - Patient discharged Performed By: #### L 500.2500, L503.7505, L501.4021, L300.8000, L100.0100 #### [facility] [address] [place], [address] PLT Normal 150-450 [facility] Comment on above: Result Comment: Canc elled via OM: Order cancelled - Patient discharged Performed By: #### L 500.2500, L503.7505, L501.4021, L300.8000, L100.0100 #### [facility] [address] [place], [address] RBC Normal 4.2-5.4 [facility] Comment on above: Result Comment: Canc elled via OM: Order cancelled - Patient discharged Performed By: #### L 500.2500, L503.7505, L501.4021, L300.8000, L100.0100 #### [facility] [address] [place], [address] RDW CV Normal 11.6-14.6 [facility] Comment on above: Result Comment: Canc elled via OM: Order cancelled - Patient discharged Performed By: #### L 500.2500, L503.7505, L501.4021, L300.8000, L100.0100 #### [facility] [address] [place], [address] RDW SD Normal 35.1-43.9 [facility] Comment on above: Result Comment: Canc elled via OM: Order cancelled - Patient discharged Performed By: #### L 500.2500, L503.7505, L501.4021, L300.8000, L100.0100 #### [facility] [address] [place], [address] WBC Normal 4.4-11.0 [facility] Comment on above: Result Comment: Canc elled via OM: Order cancelled - Patient discharged Performed By: #### L 500.2500, L503.7505, L501.4021, L300.8000, L100.0100 #### [facility] [address] [place], [address] Absolute lymphocyte countOrd ered By: Miller Cross on 05-22-2025 Lymphocytes Auto (Unsp spec) [#/Vol] 2.37 10*3/uL 0.83-4.51 [facility] Absolute neutrophil countOrd ered By: Miller Cross on 05-22-2025 Neutrophils (Bld) [#/Vol] 5.8 10*3/uL 2.0-7.7 [facility] Anion gap in Serum or Plasma Ordered By: Miller Cross on 05-22-2025 Anion gap [Moles/Vol] 11 mmol/L 03-22 [facility] Automated lymphocyte count a s percentage of total leukocytesOrdered By: Miller Cross on 05-22-2025 Lymphocytes/100 WBC Auto (Unsp spec) 25.2 % [facility] BUN/creatinine ratioOrdered By: Miller Cross on 05-22-2025 Urea nitrogen/Creatinine [Mass ratio] 21.1 mg/mg High 08-27 [facility] Basic Metabolic Profile (BMP )on 05-22-2025 BUN/CRE 21.1 RATIO High 08-27 [facility] Comment on above: Performed By: #### L 501.5200, L300.3900 #### [facility] [address] [place], [address] Calcium [Mass/Vol] 8.8 mg/dL Normal 7.6-11.0 [facility] Comment on above: Performed By: #### L 501.5200, L300.3900 #### [facility] [address] [place], [address] Chloride [Moles/Vol] 106 mmol/L Normal 98-108 [facility] Comment on above: Performed By: #### L 501.5200, L300.3900 #### [facility] [address] [place], [address] CO2 [Moles/Vol] 22.4 mmol/L Normal 21.0-32.0 [facility] Comment on above: Performed By: #### L 501.5200, L300.3900 #### [facility] [address] [place], [address] Creatinine [Mass/Vol] 1.03 mg/dL Normal 0.70-1.20 [facility] Comment on above: Performed By: #### L 501.5200, L300.3900 #### [facility] [address] [place], [address] ECRCL 34.27 ml/min Low 50-250 [facility] Comment on above: Performed By: #### L 501.5200, L300.3900 #### [facility] [address] [place], [address] GAP 11 Normal 5-15 [facility] Comment on above: Performed By: #### L 501.5200, L300.3900 #### [facility] [address] [place], [address] GFR/1.73 sq M.predicted among non-blacks MDRD (S/P/Bld) [Vol rate/Area] 54 mL/min/{1.73_m2} Low >60 [facility] Comment on above: Result Comment: mL/m in/1.73m2 CKD-EPI Creatinine Equation (2020) Performed By: #### L 501.5200, L300.3900 #### [facility] [address] [place], [address] Glucose [Mass/Vol] 121 mg/dL High 70-99 [facility] Comment on above: Performed By: #### L 501.5200, L300.3900 #### [facility] [address] [place], [address] Potassium [Moles/Vol] 3.6 mmol/L Normal 3.3-5.1 [facility] Comment on above: Performed By: #### L 501.5200, L300.3900 #### [facility] [address] [place], [address] Sodium [Moles/Vol] 140 mmol/L Normal 133-145 [facility] Comment on above: Performed By: #### L 501.5200, L300.3900 #### [facility] [address] [place], [address] Urea nitrogen [Mass/Vol] 22 mg/dL High 4-19 [facility] Comment on above: Performed By: #### L 501.5200, L300.3900 #### [facility] [address] [place], [address] Basophil percentageOrdered B y: Miller Cross on 05-22-2025 Basophils/100 WBC (Bld) 0.6 % 0-1 [facility] CBC W/Diff, Automatedon 05-08 Absolute Lymph 2.37 X10 3/uL Normal 0.83-4.51 [facility] Comment on above: Performed By: #### L 501.5200, L300.3900 #### [facility] [address] [place], [address] Absolute Neut 5.8 X10 3/uL Normal 2.0-7.7 [facility] Comment on above: Performed By: #### L 501.5200, L300.3900 #### [facility] [address] [place], [address] Basophils/100 WBC (Bld) 0.6 % Normal 0-1 [facility] Comment on above: Performed By: #### L 501.5200, L300.3900 #### [facility] [address] [place], [address] Eosinophils/100 WBC (Bld) 3.2 % Normal 0-5 [facility] Comment on above: Performed By: #### L 501.5200, L300.3900 #### [facility] [address] [place], [address] Erythrocyte distribution width (RBC) [Ratio] 13.2 % Normal 11.6-14.6 [facility] Comment on above: Performed By: #### L 501.5200, L300.3900 #### [facility] [address] [place], [address] Hematocrit (Bld) [Volume fraction] 35.7 % Low 37-47 [facility] Comment on above: Performed By: #### L 501.5200, L300.3900 #### [facility] [address] [place], [address] Hemoglobin (Bld) [Mass/Vol] 12.0 g/dL Normal 12.0-15.0 [facility] Comment on above: Performed By: #### L 501.5200, L300.3900 #### [facility] [address] [place], [address] IG% 0.400 Normal 0.0-0.9 [facility] Comment on above: Result Comment: IG% - Immature Granulocytes (promyelocytes, myelocytes and metamyelocytes) > 1% indicates that a LEFT SHIFT is Present. Performed By: #### L 501.5200, L300.3900 #### [facility] [address] [place], [address] Lymphocytes/100 WBC (Bld) 25.2 % Normal 19-41 [facility] Comment on above: Performed By: #### L 501.5200, L300.3900 #### [facility] [address] [place], [address] MCH (RBC) [Entitic mass] 30.9 pg Normal 27.0-32.0 [facility] Comment on above: Performed By: #### L 501.5200, L300.3900 #### [facility] [address] [place], [address] MCHC (RBC) [Mass/Vol] 33.6 g/dL Normal 32-36 [facility] Comment on above: Performed By: #### L 501.5200, L300.3900 #### [facility] [address] [place], [address] MCV (RBC) [Entitic vol] 92.0 fL Normal 81-99 [facility] Comment on above: Performed By: #### L 501.5200, L300.3900 #### [facility] [address] [place], [address] Monocytes/100 WBC (Bld) 9.1 % Normal 0-10 [facility] Comment on above: Performed By: #### L 501.5200, L300.3900 #### [facility] [address] [place], [address] Neutrophils/100 WBC (Bld) 61.5 % Normal 47-70 [facility] Comment on above: Performed By: #### L 501.5200, L300.3900 #### [facility] Laboratory [address] [place], [address] Nucleated RBC (Bld) [#/Vol] 0 10*3/uL Normal 0-5 [facility] Comment on above: Performed By: #### L 501.5200, L300.3900 #### [facility] Laboratory [address] [place], [address] Platelet mean volume (Bld) [Entitic vol] 10.3 fL Normal 6.2-12.0 [facility] Comment on above: Performed By: #### L 501.5200, L300.3900 #### [facility] Laboratory [address] [place], [address] Platelets (Bld) [#/Vol] 257 10*3/uL Normal 150-450 [facility] Comment on above: Performed By: #### L 501.5200, L300.3900 #### [facility] Laboratory [address] [place], [address] RBC (Bld) [#/Vol] 3.88 10*6/uL Low 4.2-5.4 [facility] Comment on above: Performed By: #### L 501.5200, L300.3900 #### [facility] Laboratory [address] [place], [address] RDW SD 44.1 fl High 35.1-43.9 [facility] Comment on above: Performed By: #### L 501.5200, L300.3900 #### [facility] Laboratory [address] [place], [address] WBC (Bld) [#/Vol] 9.4 10*3/uL Normal 4.4-11.0 [facility] Comment on above: Performed By: #### L 501.5200, L300.3900 #### [facility] Laboratory [address] [place], [address] Carbon dioxide, total [Moles /volume] in Central venous bloodOrdered By: Miller Cross on 05-22-2025 CO2 [Moles/Vol] 22.4 mmol/L 21.0-32.0 [facility] Chloride assayOrdered By: Steve Cross on 05-22-2025 Chloride [Moles/Vol] 106 mmol/L 98-108 [facility] Electrocardiogram reportOrde red By: Adelina Brice on 05-22-2025 EKG study [facility] Cardiovascular Services [address] [place] [address] 12 Lead EKG 05/20/252026 MR#: [id number] Acct: [id number] Name: EUGENIE MATA Rep #:[id number] : 1940 84 From: Adelina ludwig MD Attending Dr: Dr. Miller Cross MD Status: ADM IN Ordering Dr: Ignacia Parsons MD Date: 05/20/25 Location: [facility] Sex: F C Admitted: 05/20/25 [...] IS UNCONFIRMED Confirmed by MD KRYSTLE, ADELINA ([id number]), order editor [address]LE[address] ([id number]) on 05/22/2025 10:57:50 AM Referred By: Confirmed By: ADELINA BRICE MD 05/22/251056 Date _ Adelina Brice MD CC: Dr. Ignacia Parsons MD; Dr. Miller Cross MD; Dr. Liane Stephenson, DO ~ Signed [facility] Other Phone: EKG study [facility] Cardiovascular Services [address] [place] [address] 12 Lead EKG 05/21/25450 MR#: [id number] Acct: [id number] Name: EUGENIE MATA Rep #:[id number] : 1940 84 From: Adelina ludwig MD Attending Dr: Dr. Miller Cross MD Status: ADM IN Ordering Dr: Ignacia Parsons MD Date: 05/21/25 Location: [facility] Sex: F C Admitted: 05/20/25 [...] IS UNCONFIRMED Confirmed by MD KRYSTLE, ADELINA ([id number]), order editor [address]LE[address] ([id number]) on 05/22/2025 10:55:56 AM Referred By: Confirmed By: ADELINA BRICE MD 05/22/25 1055 Date _ Adelina Brice MD CC: Dr. Ignacia Parsons MD; Dr. Miller Cross MD; Dr. Liane Stephenson DO ~ Signed [facility] Other Phone: Eosinophil percentageOrdered By: Miller Cross on 05-22-2025 Eosinophils/100 WBC (Bld) 3.2 % 0-5 [facility] Erythrocyte distribution wid th ratioOrdered By: Miller Cross on 05-22-2025 Erythrocyte distribution width (RBC) [Ratio] 13.2 % 11.6-14.6 [facility] Erythrocyte distribution wid th standard deviationOrdered By: Miller Cross on 05-22-2025 Erythrocyte distribution width (RBC) [Ratio] 44.1 fl High 35.1-43.9 [facility] Glomerular filtration rate ( GFR) estimation/1.73 sq m using serum, plasma, or whole bOrdered By: Miller Cross on 05-22-2025 GFR/1.73 sq M.predicted among non-blacks MDRD (S/P/Bld) [Vol rate/Area] 54 mL/min/{1.73_m2} Low >60 [facility] Comment on above: mL/min/1.73m2 CKD-EP I Creatinine Equation (2020) Hematocrit Auto (Bld) [Volum e fraction]Ordered By: Miller Cross on 05-22-2025 Hematocrit (Bld) [Volume fraction] 35.7 % Low 37-47 [facility] Hemoglobin measurementOrdere d By: Miller Cross on 05-22-2025 Hemoglobin (Bld) [Mass/Vol] 12.0 g/dL 12.0-15.0 [facility] Immature granulocytes/100 WB C Auto (Bld)Ordered By: Miller Cross on 05-22-2025 Immature granulocytes/100 WBC (Bld) 0.400 % 0.0-0.9 [facility] Comment on above: IG% - Immature Granu locytes (promyelocytes, myelocytes and metamyelocytes) > 1% indicates that a LEFT SHIFT is Present. MCV (mean corpuscular volume ) determinationOrdered By: Miller Cross on 05-22-2025 MCV (RBC) [Entitic vol] 92.0 fL 81-99 [facility] Magnesiumon 05-22-2025 Magnesium [Mass/Vol] 1.9 mg/dL Normal 1.5-2.2 [facility] Comment on above: Performed By: #### L 501.5200, L300.3900 #### [facility] Laboratory [address] [place], [place] [address]all [facility] [place], [address] Magnesium measurement (mass/ volume)Ordered By: Miller Cross on 05-22-2025 Magnesium (Unsp spec) [Mass/Vol] 1.9 mg/dL 1.5-2.2 [facility] Mean corpuscular hemoglobin (MCH) determinationOrdered By: Miller Cross on 05-22-2025 MCH (RBC) [Entitic mass] 30.9 pg 27.0-32.0 [facility] Mean corpuscular hemoglobin concentration (MCHC) determinationOrdered By: Miller Cross on 05-22-2025 MCHC (RBC) [Mass/Vol] 33.6 g/dL 32-36 [facility] Mean platelet volume determi nationOrdered By: Miller Cross on 05-22-2025 Platelet mean volume (Bld) [Entitic vol] 10.3 fL 6.2-12.0 [facility] Monocyte percentageOrdered B y: Miller Cross on 05-22-2025 Monocytes/100 WBC (Bld) 9.1 % 0-10 [facility] Neutrophil percentageOrdered By: Miller Cross on 05-22-2025 Neutrophils/100 WBC (Bld) 61.5 % 47-70 [facility] Nucleated red blood cell per centageOrdered By: Miller Cross on 05-22-2025 Nucleated RBC/100 WBC (Bld) [Ratio] 0 % 0-5 [facility] Phosphoruson 05-22-2025 Phosphate [Mass/Vol] 3.5 mg/dL Normal 2.7-4.5 [facility] Comment on above: Performed By: #### L 501.5200, L300.3900 #### [facility] Laboratory [address] [place] [address], [address] Platelet countOrdered By: Steve Cross on 05-22-2025 Platelets (Bld) [#/Vol] 257 10*3/uL 150-450 [facility] Potassium measurement (mass/ volume)Ordered By: Miller Cross on 05-22-2025 Potassium (Unsp spec) [Mass/Vol] 3.6 mmol/L 3.3-5.1 [facility] RBC Auto (Bld) [#/Vol]Ordere d By: Miller Cross on 05-22-2025 RBC (Bld) [#/Vol] 3.88 10*6/uL Low 4.2-5.4 [facility] Serum creatinine measurement (mass/volume)Ordered By: Miller Cross on 05-22-2025 Creatinine [Mass/Vol] 1.03 mg/dL 0.70-1.20 [facility] Serum glucose measurement (m ass/volume)Ordered By: Miller Cross on 05-22-2025 Glucose [Mass/Vol] 121 mg/dL High 70-99 [facility] Serum or plasma calcium osmel urement (mass/volume)Ordered By: Miller Cross on 05-22-2025 Calcium [Mass/Vol] 8.8 mg/dL 7.6-11.0 [facility] Serum or plasma urea nitroge n measurement (mass/volume)Ordered By: Miller Cross on 05-22-2025 Urea nitrogen [Mass/Vol] 22 mg/dL High 4-19 [facility] Sodium levelOrdered By: Balwinder Cross on 05-22-2025 Sodium [Moles/Vol] 140 mmol/L 133-145 [facility] White blood cell (WBC) count Ordered By: Miller Cross on 05-22-2025 WBC (Bld) [#/Vol] 9.4 10*3/uL 4.4-11.0 [facility] 12 Lead EKGon 05-21-2025 12 Lead EKG [facility] Cardiovascular Services [address] [place] [address] 12 Lead EKG 05/21/25 0451 MR#: [id number] Acct: [id number] Name: EUGENIE MATA Rep #: [id number] : 1940 84 From: Adelina Brice MD [...] IS UNCONFIRMED Confirmed by MD KRYSTLE, ADELINA ([id number]), order editor [address] ([id number]) on 05/22/2025 10:55:56 AM Referred By: Confirmed By: ADELINA BRICE MD 05/22/25 1055 Date Adelina Brice MD CC: Dr. Ignacia Parsons MD; Dr. Miller Cross MD; Dr. Liane Stephenson DO Signed Normal [facility] Activated partial thrombopla stin time (aPTT) in platelet poor plasma by coagulation aOrdered By: Ignacia Parsons on 05-21-2025 aPTT Coag (PPP) [Time] 76.7 s High 24.1-36.2 [facility] Bilirubin, totalOrdered By: Ignacia Parsons on 05-21-2025 Bilirubin [Mass/Vol] 0.28 mg/dL 0.00-1.30 [facility] CBC W/Diff, Automatedon 05-08-2024 Basophils/100 WBC (Bld) 1.0 % Normal 0-1 [facility] Comment on above: Performed By: #### L 500.2500, L503.7505, L501.4021, L300.8000, L100.0100 #### [facility] Laboratory [address] [place], [address] Eosinophils/100 WBC (Bld) 3.8 % Normal 0-5 [facility] Comment on above: Performed By: #### L 500.2500, L503.7505, L501.4021, L300.8000, L100.0100 #### [facility] Laboratory [address] [place], [address] Erythrocyte distribution width (RBC) [Ratio] 12.8 % Normal 11.6-14.6 [facility] Comment on above: Performed By: #### L 500.2500, L503.7505, L501.4021, L300.8000, L100.0100 #### [facility] Laboratory [address] [place], [address] Hematocrit (Bld) [Volume fraction] 37.2 % Normal 37-47 [facility] Comment on above: Performed By: #### L 500.2500, L503.7505, L501.4021, L300.8000, L100.0100 #### [facility] Laboratory [address] [place], [address] IG% 0.300 Normal 0.0-0.9 [facility] Comment on above: Result Comment: IG% - Immature Granulocytes (promyelocytes, myelocytes and metamyelocytes) > 1% indicates that a LEFT SHIFT is Present. Performed By: #### L 500.2500, L503.7505, L501.4021, L300.8000, L100.0100 #### [facility] Laboratory [address] [place], [address] Lymphocytes/100 WBC (Bld) 35.9 % Normal 19-41 [facility] Comment on above: Performed By: #### L 500.2500, L503.7505, L501.4021, L300.8000, L100.0100 #### [facility] Laboratory [address] [place], [address] MCH (RBC) [Entitic mass] 31.9 pg Normal 27.0-32.0 [facility] Comment on above: Performed By: #### L 500.2500, L503.7505, L501.4021, L300.8000, L100.0100 #### [facility] Laboratory [address] [place], [address] MCHC (RBC) [Mass/Vol] 34.1 g/dL Normal 32-36 [facility] Comment on above: Performed By: #### L 500.2500, L503.7505, L501.4021, L300.8000, L100.0100 #### [facility] Laboratory [address] [place], [address] MCV (RBC) [Entitic vol] 93.5 fL Normal 81-99 [facility] Comment on above: Performed By: #### L 500.2500, L503.7505, L501.4021, L300.8000, L100.0100 #### [facility] Laboratory [address] [place], [address] Monocytes/100 WBC (Bld) 8.6 % Normal 0-10 [facility] Comment on above: Performed By: #### L 500.2500, L503.7505, L501.4021, L300.8000, L100.0100 #### [facility] Laboratory [address] [place], [address] Neutrophils/100 WBC (Bld) 50.4 % Normal 47-70 [facility] Comment on above: Performed By: #### L 500.2500, L503.7505, L501.4021, L300.8000, L100.0100 #### [facility] Laboratory [address] [place], [address] Platelet mean volume (Bld) [Entitic vol] 10.2 fL Normal 6.2-12.0 [facility] Comment on above: Performed By: #### L 500.2500, L503.7505, L501.4021, L300.8000, L100.0100 #### [facility] Laboratory [address] [place], [address] Platelets (Bld) [#/Vol] 243 10*3/uL Normal 150-450 [facility] Comment on above: Performed By: #### L 500.2500, L503.7505, L501.4021, L300.8000, L100.0100 #### [facility] Laboratory [address] [place], [address] RDW SD 43.8 fl Normal 35.1-43.9 [facility] Comment on above: Performed By: #### L 500.2500, L503.7505, L501.4021, L300.8000, L100.0100 #### [facility] Laboratory [address] [place], [address] Hemoglobin (Bld) [Mass/Vol] 12.7 g/dL Normal 12.0-15.0 [facility] Comment on above: Performed By: #### L 500.2500, L503.7505, L501.4021, L300.8000, L100.0100 #### [facility] Laboratory [address] [place], [address] RBC (Bld) [#/Vol] 3.98 10*6/uL Low 4.2-5.4 [facility] Comment on above: Performed By: #### L 500.2500, L503.7505, L501.4021, L300.8000, L100.0100 #### [facility] Laboratory [address] [place], [address] WBC (Bld) [#/Vol] 7.3 10*3/uL Normal 4.4-11.0 [facility] Comment on above: Performed By: #### L 500.2500, L503.7505, L501.4021, L300.8000, L100.0100 #### [facility] Laboratory [address] [place], [address] Calculated very low density lipoprotein (VLDL) cholesterol measurementOrdered By: Ignacia Parsons on 05-21-2025 Calculated very low density lipoprotein (VLDL) cholesterol measurement 22 mg/dL 5-40 [facility] Comprehensive Metabolic Prof ilon 05-21-2025 Albumin [Mass/Vol] 3.6 g/dL Normal 3.4-4.8 [facility] Comment on above: Performed By: #### L 500.2500, L503.7505, L501.4021, L300.8000, L100.0100 #### [facility] Laboratory [address] [place], [address] Albumin/Globulin [Mass ratio] 1.4 {ratio} Normal 0.9-2.4 [facility] Comment on above: Performed By: #### L 500.2500, L503.7505, L501.4021, L300.8000, L100.0100 #### [facility] Laboratory [address] [place], [address] ALK PHOS 57 U/L Normal 35-104 [facility] Comment on above: Performed By: #### L 500.2500, L503.7505, L501.4021, L300.8000, L100.0100 #### [facility] Laboratory [address] [place], [address] ALT [Catalytic activity/Vol] 8 U/L Normal <=34 [facility] Comment on above: Performed By: #### L 500.2500, L503.7505, L501.4021, L300.8000, L100.0100 #### [facility] Laboratory [address] [place], [address] AST [Catalytic activity/Vol] 23 U/L Normal <=31 [facility] Comment on above: Performed By: #### L 500.2500, L503.7505, L501.4021, L300.8000, L100.0100 #### [facility] Laboratory [address] [place], [address] Bilirubin [Mass/Vol] 0.28 mg/dL Normal 0.00-1.30 [facility] Comment on above: Performed By: #### L 500.2500, L503.7505, L501.4021, L300.8000, L100.0100 #### [facility] Laboratory [address] [place], [address] BUN/CRE 20.4 RATIO High 10-20 [facility] Comment on above: Performed By: #### L 500.2500, L503.7505, L501.4021, L300.8000, L100.0100 #### [facility] Laboratory [address] [place], [address] Calcium [Mass/Vol] 9.2 mg/dL Normal 7.6-11.0 [facility] Comment on above: Performed By: #### L 500.2500, L503.7505, L501.4021, L300.8000, L100.0100 #### [facility] Laboratory [address] [place], [address] Chloride [Moles/Vol] 106 mmol/L Normal 98-108 [facility] Comment on above: Performed By: #### L 500.2500, L503.7505, L501.4021, L300.8000, L100.0100 #### [facility] Laboratory [address] [place], [address] CO2 [Moles/Vol] 22.5 mmol/L Normal 21.0-32.0 [facility] Comment on above: Performed By: #### L 500.2500, L503.7505, L501.4021, L300.8000, L100.0100 #### [facility] Laboratory [address] [place], [address] Creatinine [Mass/Vol] 0.92 mg/dL Normal 0.70-1.20 [facility] Comment on above: Performed By: #### L 500.2500, L503.7505, L501.4021, L300.8000, L100.0100 #### [facility] Laboratory [address] [place], [address] ECRCL 37.96 ml/min Low 50-250 [facility] Comment on above: Performed By: #### L 500.2500, L503.7505, L501.4021, L300.8000, L100.0100 #### [facility] Laboratory [address] [place], [address] GAP 12 Normal 5-15 [facility] Comment on above: Performed By: #### L 500.2500, L503.7505, L501.4021, L300.8000, L100.0100 #### [facility] Laboratory [address] [place], [address] GFR/1.73 sq M.predicted among non-blacks MDRD (S/P/Bld) [Vol rate/Area] 62 mL/min/{1.73_m2} Normal >60 [facility] Comment on above: Result Comment: mL/m in/1.73m2 CKD-EPI Creatinine Equation (2020) Performed By: #### L 500.2500, L503.7505, L501.4021, L300.8000, L100.0100 #### [facility] Laboratory [address] [place], [address] Globulin (S) [Mass/Vol] 2.6 g/dL Normal 2.2-4.2 [facility] Comment on above: Performed By: #### L 500.2500, L503.7505, L501.4021, L300.8000, L100.0100 #### [facility] Laboratory [address] [place], [address] Glucose [Mass/Vol] 87 mg/dL Normal 70-99 [facility] Comment on above: Performed By: #### L 500.2500, L503.7505, L501.4021, L300.8000, L100.0100 #### [facility] Laboratory [address] [place], [address] Potassium [Moles/Vol] 3.9 mmol/L Normal 3.3-5.1 [facility] Comment on above: Performed By: #### L 500.2500, L503.7505, L501.4021, L300.8000, L100.0100 #### [facility] Laboratory [address] [place], [address] Sodium [Moles/Vol] 140 mmol/L Normal 133-145 [facility] Comment on above: Performed By: #### L 500.2500, L503.7505, L501.4021, L300.8000, L100.0100 #### [facility] Laboratory [address] [place], [address] T PROT 6.2 g/dL Normal 5.9-8.4 [facility] Comment on above: Performed By: #### L 500.2500, L503.7505, L501.4021, L300.8000, L100.0100 #### [facility] Laboratory [address] [place], [address] Urea nitrogen [Mass/Vol] 19 mg/dL Normal 4-19 [facility] Comment on above: Performed By: #### L 500.2500, L503.7505, L501.4021, L300.8000, L100.0100 #### [facility] Laboratory [address] [place], [address] Consultation - Cardiologyon 05-21-2025 Consultation - Cardiology [facility] Medical Records Department [address] [place] [address] Consultation - Cardiology 05/21/25 1036 MR#: [id number] Acct: [id number] Name: EUGENIE MATA Rep #: [id number] : 1940 84 From: Luis Dominguez MD PCP: Dr. Liane Stephenson, DO Status:ADM IN Location: [place] [address] Assessment Plan Assessment/Plan (1) NSTEMI, initial episode [...] all in agreement with her dementia issues. [facility] Medical History (Updated 05/21/25 @ 10:[address] Luis Dominguez MD) HLD (hyperlipidemia) HTN (hypertension) Dementia Gout Overweight Chronic kidney disease (CKD), stage III (moderate) Stenosis of retinal artery Macular degeneration Home Medications ???Medication ???Instructions ???Recorded ???Last Taken ???Type hydrochlorothiazide 2 (more content not included)... Normal [facility] Echo Completeon 05-21-2025 Echo Complete [facility] Cardiovascular Services [address] [place] [address] Echo Complete 05/21/25 1011 MR#: [id number] Acct: [id number] Name: EUGENIE MATA Rep #: [id number] : 1940 84 From: Tavo Wilson MD [...] Dictated: 05/21/25 1011 Date Transcribed: 05/21/25 141 Garage Mechanic: Signed Normal [facility] Echocardiogram study reportO rdered By: Tavo Wilson on 05-21-2025 Study report [facility] [address] [place] [address] Echo Complete 05/21/25 1011 MR#: [id number] Acct: [id number] Name: EUGENIE MATA Rep #:[id number] : 1940 84 From: Tavo Wilson MD Attending Dr: Dr. Miller Cross MD Status: ADM IN Ordering Dr: Ignacia Parsons MD Date: 05/21/25 Location: [facility] Sex: F C Admitted: 05/20/25 [...] Date Dictated: 05/21/25 1011 Date Transcribed: 05/21/251411 Garage Mechanic: Signed [facility] Work Phone: Electrocardiogram reportOrde red By: Luis Dominguez on 05-21-2025 EKG study [facility] Cardiovascular Services [address] [place] [address] 12 Lead EKG 05/20/25 1401 MR#: [id number] Acct: [id number] Name: EUGENIE MATA Rep #:[id number] : 1940 84 From: Luis au MD [...] 07-Oct-2022) Abnormal ECG Confirmed by Luis Dominguez ([id number]), order editor L[address]LE[address] ([id number]) on 05/21/2025 1:07:15 PM Referred By: Confirmed By: Luis Dominguez 05/21/25 1307 Date _ Luis Dominguez MD CC: Dr. Miller Cross MD; Dr. Liane Stephenson DO; Dr. Devin Piña DO ~ Signed [facility] Work Phone: EKG study [facility] Cardiovascular Services [address] [place] [address] 12 Lead EKG 05/20/25 1917 MR#: [id number] Acct: [id number] Name: EUGENIE MATA Rep #:[id number] : 1940 84 From: Luis au MD [...] undetermined Abnormal ECG Confirmed by Luis Dominguez ([id number]), order editor L[address]LE[address] ([id number]) on 05/21/2025 1:07:38 PM Referred By: TA Confirmed By: Luis Dominguez 05/21/25 1307 Date _ Luis Dominguez MD CC: Dr. Miller Cross MD; Dr. Liane Stephenson DO; Dr. Devin Piña DO ~ Signed [facility] Work Phone: LDL calc ser/plasOrdered By: Ignacia Parsons on 05-21-2025 Cholesterol in LDL [Mass/Vol] 61 mg/dL [facility] Comment on above: Dtygipqpwv=608-734 m g/dL & Higher Jtks=733 mg/dL or greater Laboratory - Chemistry and C hemistry - challengeOrdered By: Ignacia Parsons on 05-21-2025 AST [Catalytic activity/Vol] 23 U/L <32 [facility] Lipid Profileon 05-21-2025 CHOL:HDL 2.57 Normal [facility] Comment on above: Performed By: #### L 500.2500, L503.7505, L501.4021, L300.8000, L100.0100 #### [facility] Laboratory [address] [place], [place], [id number] Cholesterol [Mass/Vol] 136 mg/dL Normal <=200 [facility] Comment on above: Result Comment: Chol esterol level, Desirable <200 mg/dL Borderline high cholesterol 200-239 mg/dL High cholesterol >=240 mg/dL Recommendations of the NCEP Adult Treatment Panel for the following risk-cutoff thresholds for the [place] population. Performed By: #### L 500.2500, L503.7505, L501.4021, L300.8000, L100.0100 #### [facility] Laboratory [address] [place], [address] Cholesterol in HDL [Mass/Vol] 53 mg/dL Normal [facility] Comment on above: Result Comment: Francoise onal Cholesterol Education Program (NCEP) guidelines: <40 mg/dL: Low HDL-cholesterol (major risk factor for CHD) >= 60 mg/dL: High HDL-cholesterol (negative risk factor for CHD) HDL-cholesterol is affected by a number of factors, e.g. smoking, exercise, hormones, sex and age. Performed By: #### L 500.2500, L503.7505, L501.4021, L300.8000, L100.0100 #### [facility] Laboratory [address] [place], [address] Cholesterol in LDL [Mass/Vol] 61 mg/dL Normal [facility] Comment on above: Result Comment: Bord eknqfi=439-569 mg/dL Higher Nzra=490 mg/dL or greater Performed By: #### L 500.2500, L503.7505, L501.4021, L300.8000, L100.0100 #### [facility] Laboratory [address] [place], [address] Cholesterol in VLDL [Mass/Vol] 22 mg/dL Normal 5-40 [facility] Comment on above: Performed By: #### L 500.2500, L503.7505, L501.4021, L300.8000, L100.0100 #### [facility] Laboratory [address] [place], [address] Triglyceride [Mass/Vol] 112 mg/dL Normal [facility] Comment on above: Result Comment: The drugs N-Acetylcysteine and Metamizole may falsely depress this assay. Normal range: <150 mg/dL Borderline High: 150-199 mg/dL High: 200-499 mg/dL Very High: >500 mg/dL Performed By: #### L 500.2500, L503.7505, L501.4021, L300.8000, L100.0100 #### [facility] Laboratory [address] [place], [address] Partial Thromboplast Timeon 05-21-2025 aPTT Coag (Bld) [Time] 76.7 s High 24.1-36.2 [facility] Comment on above: Order Comment: Comme nts: hep gtt Performed By: #### L 500.2500, L503.7505, L501.4021, L300.8000, L100.0100 #### [facility] Laboratory [address] [place], [place], [address] aPTT Coag (Bld) [Time] 194.8 s Invalid Interpretation Code 24.1-36.2 [facility] Comment on above: Result Comment: CRIT ICAL VALUE CALLED TO URMILA 05/21/25 Margarita Polk. RESULTS READ BACK BY SAME. Performed By: #### L 501.5200, L300.3900 #### [facility] Laboratory [address] [place], [place], [address] Screening total cholesterol/ high density lipoprotein (HDL) cholesterol ratioOrdered By: Ignacia Parsons on 05-21-2025 Cholesterol.total/Choles terol in HDL [Mass ratio] 2.57 {ratio} [facility] Serum globulin measurementOr dered By: Ignacia Parsons on 05-21-2025 Globulin (S) [Mass/Vol] 2.6 g/dL 2.2-4.2 [facility] Serum or plasma alanine núñez otransferase (ALT) measurementOrdered By: Ignacia Jaqueline on 05-21-2025 ALT [Catalytic activity/Vol] 8 U/L <35 [facility] Serum or plasma albumin osmel urement (mass/volume)Ordered By: Ignacia Parsons on 05-21-2025 Albumin [Mass/Vol] 3.6 g/dL 3.4-4.8 [facility] Serum or plasma albumin/glob ulin mass ratioOrdered By: Ignacia Parsons on 05-21-2025 Albumin/Globulin [Mass ratio] 1.4 {ratio} 0.9-2.4 [facility] Serum or plasma alkaline lee ann sphatase measurementOrdered By: Ignacia Parsons on 05-21-2025 ALP [Catalytic activity/Vol] 57 U/L 35-104 [facility] Serum or plasma cholesterol in HDL measurement (mass/volume)Ordered By: Ignacia Parsons on 05-21-2025 Cholesterol in HDL [Mass/Vol] 53 mg/dL >40 [facility] Comment on above: National Cholesterol Education Program (NCEP) guidelines:<40 mg/dL: Low HDL-cholesterol (major risk factor for CHD)>= 60 mg/dL: High HDL-cholesterol (negative risk factor for CHD)HDL-cholesterol is affected by a number of factors, e.g. smoking, exercise, hormones, sex and age. Serum or plasma cholesterol measurement (mass/volume)Ordered By: Ignacia Parsons on 05-21-2025 Cholesterol [Mass/Vol] 136 mg/dL <201 [facility] Comment on above: Cholesterol level, D esirable <200 mg/dLBorderline high cholesterol 200-239 mg/dLHigh cholesterol >=240 mg/dLRecommendations of the NCEP Adult Treatment Panel for the following risk-cutoff thresholds for the [place] population. Total proteinOrdered By: Radhika Parsons on 05-21-2025 Protein [Mass/Vol] 6.2 g/dL 5.9-8.4 [facility] Triglycerides measurementOrd ered By: Ignacia Parsons on 05-21-2025 Triglyceride [Mass/Vol] 112 mg/dL <199 [facility] Comment on above: The drugs N-Acetylcy steine and Metamizole may falsely depress this assay. Normal range: <150 mg/dLBorderline High: 150-199 mg/dLHigh: 200-499 mg/dLVery High: >500 mg/dL 12 Lead EKGon 05-20-2025 12 Lead EKG [facility] Cardiovascular Services [address] [place] [address] 12 Lead EKG 05/20/252026 MR#: [id number] Acct: [id number] Name: EUGENIE MATA Rep #: [id number] : 1940 84 From: Adelina Brice MD [...] IS UNCONFIRMED Confirmed by MD KRYSTLE, ADELINA ([id number]), order editor L[address] ALEMAN ([id number]) on 05/22/2025 10:57:50 AM Referred By: Confirmed By: ADELINA BRICE MD 05/22/25 105 Date Adelina Brice MD CC: Dr. Ignacia Parsons MD; Dr. Miller Cross MD; Dr. Liane Stephenson DO Signed Normal [facility] 12 Lead EKG [facility] Cardiovascular Services [address] [place] [address] 12 Lead EKG 05/20/25 191 MR#: [id number] Acct: [id number] Name: EUGENIE MATA Rep #: [id number] : 1940 84 From: Luis Dominguez MD [...] undetermined Abnormal ECG Confirmed by Luis Dominguez ([id number]), order editor L[address]LE[address] ([id number]) on 05/21/2025 1:07:38 PM Referred By: TA Confirmed By: Luis Dominguez 05/21/251306 Date Luis Dominguez MD CC: Dr. Miller Cross MD; Dr. Liane Stephenson DO; Dr. Devin Piña DO Signed Normal [facility] 12 Lead EKG [facility] Cardiovascular Services [address] [place] [address] 12 Lead EKG 05/20/25 1401 MR#: [id number] Acct: [id number] Name: EUGENIE MATA Rep #: [id number] : 1940 84 From: Luis Dominguez MD Attending Dr: Dr. Miller Cross MD Status: ADM IN Ordering Dr: Devin Piña DO Date: 05/20/25 Location: [facility] Sex: F C Admitted: 05/20/25 [...] 07-Oct-2022) Abnormal ECG Confirmed by Luis Dominguez ([id number]), order editor L[address] ALEMAN ([id number]) on 05/21/2025 1:07:15 PM Referred By: Confirmed By: Luis Dominguez 05/21/251306 Date Luis Dominguez MD CC: Dr. Miller Cross MD; Dr. Liane Stephenson DO; Dr. Devin Piña DO Signed [facility] Absolute lymphocyte countOrd ered By: Devin Piña on 05-20-2025 Lymphocytes Auto (Unsp spec) [#/Vol] 2.84 10*3/uL 0.83-4.51 [facility] Absolute neutrophil countOrd ered By: Devin Piña on 05-20-2025 Neutrophils (Bld) [#/Vol] 6.0 10*3/uL 2.0-7.7 [facility] Activated partial thrombopla stin time (aPTT) in platelet poor plasma by coagulation aOrdered By: Devin Piña on 05-20-2025 aPTT Coag (PPP) [Time] 27.6 s 24.1-36.2 [facility] Anion gap in Serum or Plasma Ordered By: Devin Piña on 05-20-2025 Anion gap [Moles/Vol] 13 mmol/L 5-15 [facility] Automated lymphocyte count a s percentage of total leukocytesOrdered By: Devin Piña on 05-20-2025 Lymphocytes/100 WBC Auto (Unsp spec) 28.8 % 19- [facility] BUN/creatinine ratioOrdered By: Devin Piña on 05-20-2025 Urea nitrogen/Creatinine [Mass ratio] 16.6 mg/mg 10- [facility] Basic Metabolic Profile (BMP )on 05-20-2025 BUN/CRE 16.6 RATIO Normal - [facility] Comment on above: Performed By: #### L 500.2500, L503.7505, L501.4021, L300.8000, L100.0100 #### [facility] Laboratory [address] [place], [address] Calcium [Mass/Vol] 9.5 mg/dL Normal 7.6-11.0 [facility] Comment on above: Performed By: #### L 500.2500, L503.7505, L501.4021, L300.8000, L100.0100 #### [facility] Laboratory [address] [place], [address] Chloride [Moles/Vol] 97 mmol/L Low 98-108 [facility] Comment on above: Performed By: #### L 500.2500, L503.7505, L501.4021, L300.8000, L100.0100 #### [facility] Laboratory [address] [place], [address] CO2 [Moles/Vol] 24.3 mmol/L Normal 21.0-32.0 [facility] Comment on above: Performed By: #### L 500.2500, L503.7505, L501.4021, L300.8000, L100.0100 #### [facility] Laboratory [address] [place], [address] Creatinine [Mass/Vol] 1.09 mg/dL Normal 0.70-1.20 [facility] Comment on above: Performed By: #### L 500.2500, L503.7505, L501.4021, L300.8000, L100.0100 #### [facility] Laboratory [address] [place], [address] ECRCL 32.48 ml/min Low 50-250 [facility] Comment on above: Performed By: #### L 500.2500, L503.7505, L501.4021, L300.8000, L100.0100 #### [facility] Laboratory [address] [place], [address] GAP 13 Normal 5-15 [facility] Comment on above: Performed By: #### L 500.2500, L503.7505, L501.4021, L300.8000, L100.0100 #### [facility] Laboratory [address] [place], [address] GFR/1.73 sq M.predicted among non-blacks MDRD (S/P/Bld) [Vol rate/Area] 50 mL/min/{1.73_m2} Low >60 [facility] Comment on above: Result Comment: mL/m in/1.73m2 CKD-EPI Creatinine Equation (2020) Performed By: #### L 500.2500, L503.7505, L501.4021, L300.8000, L100.0100 #### [facility] Laboratory [address] [place], [address] Glucose [Mass/Vol] 130 mg/dL High 70-99 [facility] Comment on above: Performed By: #### L 500.2500, L503.7505, L501.4021, L300.8000, L100.0100 #### [facility] Laboratory [address] [place], [address] Potassium [Moles/Vol] 3.4 mmol/L Normal 3.3-5.1 [facility] Comment on above: Performed By: #### L 500.2500, L503.7505, L501.4021, L300.8000, L100.0100 #### [facility] Laboratory [address] [place], [address] Sodium [Moles/Vol] 134 mmol/L Normal 133-145 [facility] Comment on above: Performed By: #### L 500.2500, L503.7505, L501.4021, L300.8000, L100.0100 #### [facility] Laboratory [address] [place], [address] Urea nitrogen [Mass/Vol] 18 mg/dL Normal 4-19 [facility] Comment on above: Performed By: #### L 500.2500, L503.7505, L501.4021, L300.8000, L100.0100 #### [facility] Laboratory [address] [place], [address] Basophil percentageOrdered B y: Devin Piña on 05-20-2025 Basophils/100 WBC (Bld) 0.5 % 0-1 [facility] CBC W/Diff, Automatedon 05-08 Absolute Lymph 2.84 X10 3/uL Normal 0.83-4.51 [facility] Comment on above: Performed By: #### L 500.2500, L503.7505, L501.4021, L300.8000, L100.0100 #### [facility] Laboratory [address] [place], [address] Absolute Neut 6.0 X10 3/uL Normal 2.0-7.7 [facility] Comment on above: Performed By: #### L 500.2500, L503.7505, L501.4021, L300.8000, L100.0100 #### [facility] Laboratory [address] [place], [address] Basophils/100 WBC (Bld) 0.5 % Normal 0-1 [facility] Comment on above: Performed By: #### L 500.2500, L503.7505, L501.4021, L300.8000, L100.0100 #### [facility] Laboratory [address] [place], [address] Eosinophils/100 WBC (Bld) 2.4 % Normal 0-5 [facility] Comment on above: Performed By: #### L 500.2500, L503.7505, L501.4021, L300.8000, L100.0100 #### [facility] Laboratory [address] [place], [address] Erythrocyte distribution width (RBC) [Ratio] 12.8 % Normal 11.6-14.6 [facility] Comment on above: Performed By: #### L 500.2500, L503.7505, L501.4021, L300.8000, L100.0100 #### [facility] Laboratory [address] [place], [address] Hematocrit (Bld) [Volume fraction] 40.0 % Normal 37-47 [facility] Comment on above: Performed By: #### L 500.2500, L503.7505, L501.4021, L300.8000, L100.0100 #### [facility] Laboratory [address] [place], [address] Hemoglobin (Bld) [Mass/Vol] 13.3 g/dL Normal 12.0-15.0 [facility] Comment on above: Performed By: #### L 500.2500, L503.7505, L501.4021, L300.8000, L100.0100 #### [facility] Laboratory [address] [place], [address] IG% 0.300 Normal 0.0-0.9 [facility] Comment on above: Result Comment: IG% - Immature Granulocytes (promyelocytes, myelocytes and metamyelocytes) > 1% indicates that a LEFT SHIFT is Present. Performed By: #### L 500.2500, L503.7505, L501.4021, L300.8000, L100.0100 #### [facility] Laboratory [address] [place], [address] Lymphocytes/100 WBC (Bld) 28.8 % Normal 19-41 [facility] Comment on above: Performed By: #### L 500.2500, L503.7505, L501.4021, L300.8000, L100.0100 #### [facility] Laboratory [address] [place], [address] MCH (RBC) [Entitic mass] 30.9 pg Normal 27.0-32.0 [facility] Comment on above: Performed By: #### L 500.2500, L503.7505, L501.4021, L300.8000, L100.0100 #### [facility] Laboratory [address] [place], [address] MCHC (RBC) [Mass/Vol] 33.3 g/dL Normal 32-36 [facility] Comment on above: Performed By: #### L 500.2500, L503.7505, L501.4021, L300.8000, L100.0100 #### [facility] Laboratory [address] [place], [address] MCV (RBC) [Entitic vol] 93.0 fL Normal 81-99 [facility] Comment on above: Performed By: #### L 500.2500, L503.7505, L501.4021, L300.8000, L100.0100 #### [facility] Laboratory [address] [place], [address] Monocytes/100 WBC (Bld) 7.2 % Normal 0-10 [facility] Comment on above: Performed By: #### L 500.2500, L503.7505, L501.4021, L300.8000, L100.0100 #### [facility] Laboratory [address] [place], [address] Neutrophils/100 WBC (Bld) 60.8 % Normal 47-70 [facility] Comment on above: Performed By: #### L 500.2500, L503.7505, L501.4021, L300.8000, L100.0100 #### [facility] Laboratory [address] [place], [address] Nucleated RBC (Bld) [#/Vol] 0 10*3/uL Normal 0-5 [facility] Comment on above: Performed By: #### L 500.2500, L503.7505, L501.4021, L300.8000, L100.0100 #### [facility] Laboratory [address] [place], [address] Platelet mean volume (Bld) [Entitic vol] 10.4 fL Normal 6.2-12.0 [facility] Comment on above: Performed By: #### L 500.2500, L503.7505, L501.4021, L300.8000, L100.0100 #### [facility] Laboratory [address] [place], [address] Platelets (Bld) [#/Vol] 262 10*3/uL Normal 150-450 [facility] Comment on above: Performed By: #### L 500.2500, L503.7505, L501.4021, L300.8000, L100.0100 #### [facility] Laboratory [address] [place], [address] RBC (Bld) [#/Vol] 4.30 10*6/uL Normal 4.2-5.4 [facility] Comment on above: Performed By: #### L 500.2500, L503.7505, L501.4021, L300.8000, L100.0100 #### [facility] Laboratory [address] [place], [address] RDW SD 43.8 fl Normal 35.1-43.9 [facility] Comment on above: Performed By: #### L 500.2500, L503.7505, L501.4021, L300.8000, L100.0100 #### [facility] Laboratory [address] [place], [address] WBC (Bld) [#/Vol] 9.9 10*3/uL Normal 4.4-11.0 [facility] Comment on above: Performed By: #### L 500.2500, L503.7505, L501.4021, L300.8000, L100.0100 #### [facility] Laboratory [address] [place], [address] Carbon dioxide, total [Moles /volume] in Central venous bloodOrdered By: Devin Piña on 05-20-2025 CO2 [Moles/Vol] 24.3 mmol/L 21.0-32.0 [facility] Chest 1 View (Portable)on Chest 1 View (Portable) [facility] Imaging Services [address] [address] Chest 1 View (Portable) MR#: [id number] Acct: [id number] Name: EUGENIE MATA Rep #: [id number] : 1940 F 84 From: Karen Little PCP: Dr. Liane Stephenson DO Status: REG ER Study: Chest 1 View (Portable) Date of Exam: 05/20/25 Exam# [id number] Ordering Dr: Devin Piña DO PROCEDURE: CHEST 1 VIEW (PORTABLE) 05/20/2025 REASON FOR EXAM: CHEST PAIN TECHNIQUE: Frontal view of the chest. COMPARISON: 10/07/2022 FINDINGS: No focal consolidation. No pleural effusion or pneumothorax. Cardiac silhouette is within normal limits. Calcified aortic arch. Neurostimulator device noted. RAD/Chest 1 View (Portable) IMPRESSION: No focal consolidations. Reading Location: [facility] CC: Dr. Liane Stephenson DO; Dr. Devin Piña DO Garage Mechanic: Signed Normal [facility] Chloride assayOrdered By: Veronica Piña on 05-20-2025 Chloride [Moles/Vol] 97 mmol/L Low 98-108 [facility] D-Dimer Quantitative (DVT/PE )on 05-20-2025 D-DIMER QUANT 0.27 FEU/ug/m Normal 0.27-0.49 [facility] Comment on above: Result Comment: NORM AL D-Dimer level (<0.50) indicates no DVT or PE. Performed By: #### L 500.2500, L503.7505, L501.4021, L300.8000, L100.0100 #### [facility] Laboratory [address] [place], [address] Emergency Department Summary on 05-20-2025 Emergency Department Summary [facility] Medical Records Department [address] [place] [address] Emergency Department Summary 05/20/25 MR#: [id number] Acct: [id number] Name: EUGENIE MATA Rep #: [id number] : 1940 84 From: Devin Piña DO PCP: Dr. Liane Stephenson DO Status:ADM IN Location: [address] History of Present Illness Chief Complaint: [...] included)... Normal [facility] Eosinophil percentageOrdered By: Devin Piña on 05-20-2025 Eosinophils/100 WBC (Bld) 2.4 % 0-5 [facility] Erythrocyte distribution wid th ratioOrdered By: Devin Piña on 05-20-2025 Erythrocyte distribution width (RBC) [Ratio] 12.8 % 11.6-14.6 [facility] Erythrocyte distribution wid th standard deviationOrdered By: Devin Piña on 05-20-2025 Erythrocyte distribution width (RBC) [Ratio] 43.8 fl 35.1-43.9 [facility] Glomerular filtration rate ( GFR) estimation/1.73 sq m using serum, plasma, or whole bOrdered By: Devin Piña on 05-20-2025 GFR/1.73 sq M.predicted among non-blacks MDRD (S/P/Bld) [Vol rate/Area] 50 mL/min/{1.73_m2} Low >60 [facility] Comment on above: mL/min/1.73m2 CKD-EP I Creatinine Equation (2020) H AND P Exam - [facility] 05-20-2025 H&P Exam - Hospitalist [facility] Medical Records Department [address] [place] [address] H P Exam - Hospitalist 05/20/25 1726 MR#: [id number] Acct: [id number] Name: EUGENIE MATA Vaibhav Rep #: [id number] : 1940 84 From: Ignacia Parsons MD PCP: Dr. Liane Stephenson, DO Status:ADM IN Location: [facility] [id number] HPI - General General Date of Admission: 05/20/25 Date of Service: 05/20/25 Chief Complaint: Chest pain HPI Narrative The patient is an 84 y/o F w/ PMHx: Gout, Dementia unclear type with unclear behavioral disturbance history, Hx prior retinal artery narrowing, Overweight, Macular degeneration, CKD stage III unclear subtype per GFR trending, HTN, HLD who presents to the [facility] ED on 05/20/2025 with history of onset [...] heparin bolus and maintained on heparin drip. [facility] Medical History Dementia Gout Overweight Chronic kidney [...] included)... Normal [facility] Hematocrit Auto (Bld) [Volum e fraction]Ordered By: Devin Piña on 05-20-2025 Hematocrit (Bld) [Volume fraction] 40.0 % 37-47 [facility] Hemoglobin measurementOrdere d By: Devin Piña on 05-20-2025 Hemoglobin (Bld) [Mass/Vol] 13.3 g/dL 12.0-15.0 [facility] Immature granulocytes/100 WB C Auto (Bld)Ordered By: Devin Piña on 05-20-2025 Immature granulocytes/100 WBC (Bld) 0.300 % 0.0-0.9 [facility] Comment on above: IG% - Immature Granu locytes (promyelocytes, myelocytes and metamyelocytes) > 1% indicates that a LEFT SHIFT is Present. International normalized rat io (INR) calculationOrdered By: Devin Piña on 05-20-2025 INR Coag (Bld) [Relative time] 0.9 {INR} [facility] L499.0042on 05-20-2025 Trop T High Sen 153 ng/L Invalid Interpretation Code <=14 [facility] Comment on above: Result Comment: Crit ical Result(s) Called ACOLE at: 1736 by: DOROTHYMAN??Results read back by same. Performed By: #### L 501.5200, L300.3900 #### [facility] Laboratory [address] [place], [address] L499.0043on 05-20-2025 Trop T High Sen 170 ng/L Invalid Interpretation Code <=14 [facility] Comment on above: Result Comment: Crit ical Result(s) Called SYLVIATER at: 1954 by: DOROTHYMAN??Results read back by same. Performed By: #### L 501.5200, L300.3900 #### [facility] Laboratory [address] [place], [address] L501.4021on 05-20-2025 Trop T High Sen 105 ng/L Invalid Interpretation Code <=14 [facility] Comment on above: Result Comment: Crit ical Result(s) Called AHAGGERTY at: 1620 by: BWORKMAN??Results read back by same. Performed By: #### L 500.2500, L503.7505, L501.4021, L300.8000, L100.0100 #### [facility] Laboratory [address] [place], [address] L503.7505on 05-20-2025 Natriuretic peptide B (Bld) [Mass/Vol] 942 pg/mL Normal <=1800 [facility] Comment on above: Result Comment: Hear t Failure Unlikely: < 300 pg/mL Heart Failure Likely < 50 Years: > 450 pg/mL 50-75 Years: > 900 pg/mL >75 Years: > 1800 pg/mL Performed By: #### L 500.2500, L503.7505, L501.4021, L300.8000, L100.0100 #### [facility] [address] [place], [address] MCV (mean corpuscular volume ) determinationOrdered By: Devin Piña on 05-20-2025 MCV (RBC) [Entitic vol] 93.0 fL 81-99 [facility] Magnesiumon 05-20-2025 Magnesium [Mass/Vol] 1.9 mg/dL Normal 1.5-2.2 [facility] Comment on above: Order Comment: Comme nts: may add to ED labs Performed By: #### L 501.5200, L300.3900 #### [facility] Laboratory [address] [place], [place], [id number] Magnesium measurement (mass/ volume)Ordered By: Ignacia Parsons on 05-20-2025 Magnesium (Unsp spec) [Mass/Vol] 1.9 mg/dL 1.5-2.2 [facility] Mean corpuscular hemoglobin (MCH) determinationOrdered By: Devin Piña on 05-20-2025 MCH (RBC) [Entitic mass] 30.9 pg 27.0-32.0 [facility] Mean corpuscular hemoglobin concentration (MCHC) determinationOrdered By: Devin Piña on 05-20-2025 MCHC (RBC) [Mass/Vol] 33.3 g/dL 32-36 [facility] Mean platelet volume determi nationOrdered By: Devin Piña on 05-20-2025 Platelet mean volume (Bld) [Entitic vol] 10.4 fL 6.2-12.0 [facility] Monocyte percentageOrdered B y: Devin Piña on 05-20-2025 Monocytes/100 WBC (Bld) 7.2 % 0-10 [facility] Natriuretic peptide.B prohor fracisco N-Terminal [Mass/volume] in Serum or PlasmaOrdered By: Devin Piña on 05-20-2025 Natriuretic peptide.B prohormone N-Terminal [Mass/Vol] 942 pg/mL <1800 [facility] Comment on above: Heart Failure Unlike ly: < 300 pg/mLHeart Failure Likely< 50 Years: > 450 pg/mL50-75 Years: > 900 pg/mL>75 Years: > 1800 pg/mL Neutrophil percentageOrdered By: Devin Piña on 05-20-2025 Neutrophils/100 WBC (Bld) 60.8 % 47-70 [facility] Nucleated red blood cell per centageOrdered By: Devin Piña on 05-20-2025 Nucleated RBC/100 WBC (Bld) [Ratio] 0 % 0-5 [facility] Partial Thromboplast Timeon 05-20-2025 aPTT Coag (Bld) [Time] 27.6 s Normal 24.1-36.2 [facility] Comment on above: Performed By: #### L 501.5200, L300.3900 #### [facility] Laboratory [address] [place], [address] Platelet countOrdered By: Veronica Piña on 05-20-2025 Platelets (Bld) [#/Vol] 262 10*3/uL 150-450 [facility] Potassium measurement (mass/ volume)Ordered By: Devin Piña on 05-20-2025 Potassium (Unsp spec) [Mass/Vol] 3.4 mmol/L 3.3-5.1 [facility] Prothrombin Time w/INRon INR Normal [facility] Comment on above: Result Comment: DUPL ICATE ORDER Performed By: #### L 501.5200, L300.3900 #### [facility] Laboratory [address] [place], [address] PROTIME Normal 11.7-14.9 [facility] Comment on above: Result Comment: DUPL ICATE ORDER Performed By: #### L 501.5200, L300.3900 #### [facility] Laboratory [address] [place], [address] INR Coag (PPP) [Relative time] 0.9 {INR} Normal [facility] Comment on above: Performed By: #### L 300.4310, L300.3900 #### [facility] Laboratory [address] [place], [address] PT Coag (PPP) [Time] 12.1 s Normal 11.7-14.9 [facility] Comment on above: Performed By: #### L 300.4310, L300.3900 #### [facility] Laboratory [address] [place], [address] Prothrombin timeOrdered By: Devin Piña on 05-20-2025 PT Coag (PPP) [Time] 12.1 s 11.7-14.9 [facility] RBC Auto (Bld) [#/Vol]Ordere d By: Devin Piña on 05-20-2025 RBC (Bld) [#/Vol] 4.30 10*6/uL 4.2-5.4 [facility] Serum creatinine measurement (mass/volume)Ordered By: Devin Piña on 05-20-2025 Creatinine [Mass/Vol] 1.09 mg/dL 0.70-1.20 [facility] Serum glucose measurement (m ass/volume)Ordered By: Devin Piña on 05-20-2025 Glucose [Mass/Vol] 130 mg/dL High 70-99 [facility] Serum or plasma calcium osmel urement (mass/volume)Ordered By: Devin Piña on 05-20-2025 Calcium [Mass/Vol] 9.5 mg/dL 7.6-11.0 [facility] Serum or plasma urea nitroge n measurement (mass/volume)Ordered By: Devin Piña on 05-20-2025 Urea nitrogen [Mass/Vol] 18 mg/dL 4- [facility] Shoulder min 2 Viewson 05-20 Shoulder min 2 Views [facility] Imaging Services [address] [place], [place] [address] Shoulder min 2 Views MR#: [id number] Acct: [id number] Name: EUGENIE MATA Rep #: [id number] : 1940 F 84 From: Al Louis MD PCP: Dr. Liane Stephenson DO Status: REG ER Study: Shoulder min 2 Views Date of Exam: 05/20/25 Exam# [id number] Ordering Dr: Devin Piña DO PROCEDURE: SHOULDER MIN 2 VIEWS 05/20/2025 REASON FOR EXAM: PAIN TECHNIQUE: SHOULDER MIN 2 VIEWS COMPARISON: None FINDINGS: No displaced fracture or traumatic malalignment. [id number] joint space narrowing and osteophyte formation at the acromioclavicular joint, mild at the glenohumeral joint. Bone mineral density is subjectively normal. Soft tissues are unremarkable. Spinal stimulator leads partially imaged. Visualized thorax is clear. RAD/Shoulder min 2 Views IMPRESSION: No acute osseous abnormality of the left shoulder. 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 Reading Location: [facility] CC: Dr. Liane Stephenson DO; Dr. Devin Piña DO Garage Mechanic: Signed Normal [facility] Sodium levelOrdered By: Harvey Piña on 05-20-2025 Sodium [Moles/Vol] 134 mmol/L 133-145 [facility] Troponin T.cardiac [Mass/vol ume] in Serum or Plasma by High sensitivity methodOrdered By: Devin Piña on 05-20-2025 Troponin T.cardiac High sensitivity method [Mass/Vol] 170 ng/L High <14 [facility] Comment on above: Critical Result(s) C manuel KEARNS at: 1953 by: JUWAN Results read back by same. Troponin T.cardiac High sensitivity method [Mass/Vol] 153 ng/L High <14 [facility] Comment on above: Critical Result(s) C alled ACOLE at: 1736 by: JUWAN Results read back by same. Troponin T.cardiac High sensitivity method [Mass/Vol] 105 ng/L High <14 [facility] Comment on above: Critical Result(s) C alled AHAGGERTY at: 1620 by: JUWAN Results read back by same. White blood cell (WBC) count Ordered By: Devin Piña on 05-20-2025 WBC (Bld) [#/Vol] 9.9 10*3/uL 4.4-11.0 [facility] Absolute lymphocyte countOrd ered By: Liane Stephenson on 04-10-2025 Lymphocytes Auto (Unsp spec) [#/Vol] 2.21 10*3/uL 0.83-4.51 [facility] Absolute neutrophil countOrd ered By: Liane Stephenson on 04-10-2025 Neutrophils (Bld) [#/Vol] 4.4 10*3/uL 2.0-7.7 [facility] Anion gap in Serum or Plasma Ordered By: Liane Stephenson on 04-10-2025 Anion gap [Moles/Vol] 12 mmol/L 5-15 [facility] Automated lymphocyte count a s percentage of total leukocytesOrdered By: Liane Stephenson on 04-10-2025 Lymphocytes/100 WBC Auto (Unsp spec) 29.1 % 19-41 [facility] BUN/creatinine ratioOrdered By: Liane Stephenson on 04-10-2025 Urea nitrogen/Creatinine [Mass ratio] 19.2 mg/mg 10-20 [facility] Basophil percentageOrdered B y: Liane Stephenson on 04-10-2025 Basophils/100 WBC (Bld) 0.9 % 0-1 [facility] Bilirubin, totalOrdered By: Liane Stephenson on 04-10-2025 Bilirubin [Mass/Vol] 0.38 mg/dL 0.00-1.30 [facility] CBC W/Diff, Automatedon Absolute Lymph 2.21 X10 3/uL Normal 0.83-4.51 [facility] Comment on above: Performed By: #### L 501.5200, L300.3900 #### [facility] Laboratory [address] [place], [address] Absolute Neut 4.4 X10 3/uL Normal 2.0-7.7 [facility] Comment on above: Performed By: #### L 501.5200, L300.3900 #### [facility] Laboratory [address] [place], [address] Basophils/100 WBC (Bld) 0.9 % Normal 0-1 [facility] Comment on above: Performed By: #### L 501.5200, L300.3900 #### [facility] Laboratory [address] [place], [address] Eosinophils/100 WBC (Bld) 3.4 % Normal 0-5 [facility] Comment on above: Performed By: #### L 501.5200, L300.3900 #### [facility] Laboratory [address] [place], [address] Erythrocyte distribution width (RBC) [Ratio] 13.2 % Normal 11.6-14.6 [facility] Comment on above: Performed By: #### L 501.5200, L300.3900 #### [facility] [address] [place], [address] Hematocrit (Bld) [Volume fraction] 40.5 % Normal 37-47 [facility] Comment on above: Performed By: #### L 501.5200, L300.3900 #### [facility] [address] [place], [address] Hemoglobin (Bld) [Mass/Vol] 13.3 g/dL Normal 12.0-15.0 [facility] Comment on above: Performed By: #### L 501.5200, L300.3900 #### [facility] [address] [place], [address] IG% 0.100 Normal 0.0-0.9 [facility] Comment on above: Result Comment: IG% - Immature Granulocytes (promyelocytes, myelocytes and metamyelocytes) > 1% indicates that a LEFT SHIFT is Present. Performed By: #### L 501.5200, L300.3900 #### [facility] [address] [place], [address] Lymphocytes/100 WBC (Bld) 29.1 % Normal 19-41 [facility] Comment on above: Performed By: #### L 501.5200, L300.3900 #### [facility] Laboratory [address] [place], [address] MCH (RBC) [Entitic mass] 30.9 pg Normal 27.0-32.0 [facility] Comment on above: Performed By: #### L 501.5200, L300.3900 #### [facility] Laboratory [address] [place], [address] MCHC (RBC) [Mass/Vol] 32.8 g/dL Normal 32-36 [facility] Comment on above: Performed By: #### L 501.5200, L300.3900 #### [facility] [address] [place], [address] MCV (RBC) [Entitic vol] 94.2 fL Normal 81-99 [facility] Comment on above: Performed By: #### L 501.5200, L300.3900 #### [facility] [address] [place], [address] Monocytes/100 WBC (Bld) 8.6 % Normal 0-10 [facility] Comment on above: Performed By: #### L 501.5200, L300.3900 #### [facility] [address] [place], [address] Neutrophils/100 WBC (Bld) 57.9 % Normal 47-70 [facility] Comment on above: Performed By: #### L 501.5200, L300.3900 #### [facility] Laboratory [address] [place], [address] Nucleated RBC (Bld) [#/Vol] 0 10*3/uL Normal 0-5 [facility] Comment on above: Performed By: #### L 501.5200, L300.3900 #### [facility] Laboratory [address] [place], [address] Platelet mean volume (Bld) [Entitic vol] 9.7 fL Normal 6.2-12.0 [facility] Comment on above: Performed By: #### L 501.5200, L300.3900 #### [facility] Laboratory [address] [place], [address] Platelets (Bld) [#/Vol] 316 10*3/uL Normal 150-450 [facility] Comment on above: Performed By: #### L 501.5200, L300.3900 #### [facility] Laboratory [address] [place], [address] RBC (Bld) [#/Vol] 4.30 10*6/uL Normal 4.2-5.4 [facility] Comment on above: Performed By: #### L 501.5200, L300.3900 #### [facility] Laboratory [address] [place], [address] RDW SD 45.0 fl High 35.1-43.9 [facility] Comment on above: Performed By: #### L 501.5200, L300.3900 #### [facility] [address] [place], [address] WBC (Bld) [#/Vol] 7.6 10*3/uL Normal 4.4-11.0 [facility] Comment on above: Performed By: #### L 501.5200, L300.3900 #### [facility] [address] [place], [address] Calculated very low density lipoprotein (VLDL) cholesterol measurementOrdered By: Liane Stephenson on 04-10-2025 Calculated very low density lipoprotein (VLDL) cholesterol measurement 19 mg/dL 5-40 [facility] Carbon dioxide, total [Moles /volume] in Central venous bloodOrdered By: Liane Stephenson on 04-10-2025 CO2 [Moles/Vol] 23.2 mmol/L 21.0-32.0 [facility] Chloride assayOrdered By: Radha Stephenson on 04-10-2025 Chloride [Moles/Vol] 105 mmol/L 98-108 [facility] Comprehensive Metabolic Prof ilon 04-10-2025 Albumin [Mass/Vol] 4.2 g/dL Normal 3.4-4.8 [facility] Comment on above: Performed By: #### L 501.5200, L300.3900 #### [facility] Laboratory [address] [place], [address] Albumin/Globulin [Mass ratio] 1.5 {ratio} Normal 0.9-2.4 [facility] Comment on above: Performed By: #### L 501.5200, L300.3900 #### [facility] Laboratory [address] [place], [address] ALK PHOS 61 U/L Normal 35-104 [facility] Comment on above: Performed By: #### L 501.5200, L300.3900 #### [facility] [address] [place], [address] ALT [Catalytic activity/Vol] 12 U/L Normal <=34 [facility] Comment on above: Performed By: #### L 501.5200, L300.3900 #### [facility] [address] [place], [address] AST [Catalytic activity/Vol] 24 U/L Normal <=31 [facility] Comment on above: Performed By: #### L 501.5200, L300.3900 #### [facility] [address] [place], [address] Bilirubin [Mass/Vol] 0.38 mg/dL Normal 0.00-1.30 [facility] Comment on above: Performed By: #### L 501.5200, L300.3900 #### [facility] [address] [place], [address] BUN/CRE 19.2 RATIO Normal 10-20 [facility] Comment on above: Performed By: #### L 501.5200, L300.3900 #### [facility] [address] [place], [address] Calcium [Mass/Vol] 9.0 mg/dL Normal 7.6-11.0 [facility] Comment on above: Performed By: #### L 501.5200, L300.3900 #### [facility] [address] [place], [address] Chloride [Moles/Vol] 105 mmol/L Normal 98-108 [facility] Comment on above: Performed By: #### L 501.5200, L300.3900 #### [facility] [address] [place], [address] CO2 [Moles/Vol] 23.2 mmol/L Normal 21.0-32.0 [facility] Comment on above: Performed By: #### L 501.5200, L300.3900 #### [facility] [address] [place], [address] Creatinine [Mass/Vol] 1.02 mg/dL Normal 0.70-1.20 [facility] Comment on above: Performed By: #### L 501.5200, L300.3900 #### [facility] [address] [place], [address] GAP 12 Normal 5-15 [facility] Comment on above: Performed By: #### L 501.5200, L300.3900 #### [facility] [address] [place], [address] GFR/1.73 sq M.predicted among non-blacks MDRD (S/P/Bld) [Vol rate/Area] 55 mL/min/{1.73_m2} Low >60 [facility] Comment on above: Result Comment: mL/m in/1.73m2 CKD-EPI Creatinine Equation (2020) Performed By: #### L 501.5200, L300.3900 #### [facility] [address] [place], [address] Globulin (S) [Mass/Vol] 2.9 g/dL Normal 2.2-4.2 [facility] Comment on above: Performed By: #### L 501.5200, L300.3900 #### [facility] [address] [place], [address] Glucose [Mass/Vol] 91 mg/dL Normal 70-99 [facility] Comment on above: Performed By: #### L 501.5200, L300.3900 #### [facility] [address] [place], [address] Potassium [Moles/Vol] 4.0 mmol/L Normal 3.3-5.1 [facility] Comment on above: Performed By: #### L 501.5200, L300.3900 #### [facility] [address] [place], [address] Sodium [Moles/Vol] 140 mmol/L Normal 133-145 [facility] Comment on above: Performed By: #### L 501.5200, L300.3900 #### [facility] [address] [place], [address] T PROT 7.1 g/dL Normal 5.9-8.4 [facility] Comment on above: Performed By: #### L 501.5200, L300.3900 #### [facility] [address] [place], [place], [id number] Urea nitrogen [Mass/Vol] 20 mg/dL High 4-19 [facility] Comment on above: Performed By: #### L 501.5200, L300.3900 #### [facility] [address] [place], [address] Eosinophil percentageOrdered By: Liane Stephenson on 04-10-2025 Eosinophils/100 WBC (Bld) 3.4 % 0-5 [facility] Erythrocyte distribution wid th ratioOrdered By: Liane Stephenson on 04-10-2025 Erythrocyte distribution width (RBC) [Ratio] 13.2 % 11.6-14.6 [facility] Erythrocyte distribution wid th standard deviationOrdered By: Liane Stephenson on 04-10-2025 Erythrocyte distribution width (RBC) [Ratio] 45.0 fl High 35.1-43.9 [facility] Glomerular filtration rate ( GFR) estimation/1.73 sq m using serum, plasma, or whole bOrdered By: Liane Stephenson on 04-10-2025 GFR/1.73 sq M.predicted among non-blacks MDRD (S/P/Bld) [Vol rate/Area] 55 mL/min/{1.73_m2} Low >60 [facility] Comment on above: mL/min/1.73m2 CKD-EP I Creatinine Equation (2020) Hematocrit Auto (Bld) [Volum e fraction]Ordered By: Liane Stephenson on 04-10-2025 Hematocrit (Bld) [Volume fraction] 40.5 % 37-47 [facility] Hemoglobin measurementOrdere d By: Liane Stephenson on 04-10-2025 Hemoglobin (Bld) [Mass/Vol] 13.3 g/dL 12.0-15.0 [facility] Immature granulocytes/100 WB C Auto (Bld)Ordered By: Liane Stephenson on 04-10-2025 Immature granulocytes/100 WBC (Bld) 0.100 % 0.0-0.9 [facility] Comment on above: IG% - Immature Granu locytes (promyelocytes, myelocytes and metamyelocytes) > 1% indicates that a LEFT SHIFT is Present. LDL calc ser/plasOrdered By: Liane Stephenson on 04-10-2025 Cholesterol in LDL [Mass/Vol] 89 mg/dL [facility] Comment on above: Wefgroaopd=083-054 m g/dL & Higher Hkiv=377 mg/dL or greater Laboratory - Chemistry and C hemistry - challengeOrdered By: Liane Stephenson on 04-10-2025 AST [Catalytic activity/Vol] 24 U/L <32 [facility] Lipid Profileon 04-10-2025 CHOL:HDL 2.66 Normal [facility] Comment on above: Performed By: #### L 500.2500, L503.7505, L501.4021, L300.8000, L100.0100 #### [facility] [address] [place], [address] Cholesterol [Mass/Vol] 173 mg/dL Normal <=200 [facility] Comment on above: Result Comment: Chol esterol level, Desirable <200 mg/dL Borderline high cholesterol 200-239 mg/dL High cholesterol >=240 mg/dL Recommendations of the NCEP Adult Treatment Panel for the following risk-cutoff thresholds for the [place] population. Performed By: #### L 500.2500, L503.7505, L501.4021, L300.8000, L100.0100 #### [facility] [address] [place], [address] Cholesterol in HDL [Mass/Vol] 65 mg/dL Normal [facility] Comment on above: Result Comment: Francoise onal Cholesterol Education Program (NCEP) guidelines: <40 mg/dL: Low HDL-cholesterol (major risk factor for CHD) >= 60 mg/dL: High HDL-cholesterol (negative risk factor for CHD) HDL-cholesterol is affected by a number of factors, e.g. smoking, exercise, hormones, sex and age. Performed By: #### L 500.2500, L503.7505, L501.4021, L300.8000, L100.0100 #### [facility] [address] [place], [address] Cholesterol in LDL [Mass/Vol] 89 mg/dL Normal [facility] Comment on above: Result Comment: Bord bwyssy=184-638 mg/dL Higher Cana=277 mg/dL or greater Performed By: #### L 500.2500, L503.7505, L501.4021, L300.8000, L100.0100 #### [facility] [address] [place], [address] Cholesterol in VLDL [Mass/Vol] 19 mg/dL Normal 5-40 [facility] Comment on above: Performed By: #### L 500.2500, L503.7505, L501.4021, L300.8000, L100.0100 #### [facility] [address], [address] Triglyceride [Mass/Vol] 95 mg/dL Normal [facility] Comment on above: Result Comment: The drugs N-Acetylcysteine and Metamizole may falsely depress this assay. Normal range: <150 mg/dL Borderline High: 150-199 mg/dL High: 200-499 mg/dL Very High: >500 mg/dL Performed By: #### L 500.2500, L503.7505, L501.4021, L300.8000, L100.0100 #### [facility] [address] [place], [address] MCV (mean corpuscular volume ) determinationOrdered By: Liane Stephenson on 04-10-2025 MCV (RBC) [Entitic vol] 94.2 fL 81-99 [facility] Mean corpuscular hemoglobin (MCH) determinationOrdered By: Liane Stephenson on 04-10-2025 MCH (RBC) [Entitic mass] 30.9 pg 27.0-32.0 [facility] Mean corpuscular hemoglobin concentration (MCHC) determinationOrdered By: Liane Stephenson on 04-10-2025 MCHC (RBC) [Mass/Vol] 32.8 g/dL 32-36 [facility] Mean platelet volume determi nationOrdered By: Liane Stephenson on 04-10-2025 Platelet mean volume (Bld) [Entitic vol] 9.7 fL 6.2-12.0 [facility] Monocyte percentageOrdered B y: Liane Stephenson on 04-10-2025 Monocytes/100 WBC (Bld) 8.6 % 0-10 [facility] Neutrophil percentageOrdered By: Liane Stephenson on 04-10-2025 Neutrophils/100 WBC (Bld) 57.9 % 47-70 [facility] Nucleated red blood cell per centageOrdered By: Liane Stephenson on 04-10-2025 Nucleated RBC/100 WBC (Bld) [Ratio] 0 % 0-5 [facility] Platelet countOrdered By: Radha Stephenson on 04-10-2025 Platelets (Bld) [#/Vol] 316 10*3/uL 150-450 [facility] Potassium measurement (mass/ volume)Ordered By: Liane Stephenson on 04-10-2025 Potassium (Unsp spec) [Mass/Vol] 4.0 mmol/L 3.3-5.1 [facility] RBC Auto (Bld) [#/Vol]Ordere d By: Liane Stephenson on 04-10-2025 RBC (Bld) [#/Vol] 4.30 10*6/uL 4.2-5.4 [facility] Screening total cholesterol/ high density lipoprotein (HDL) cholesterol ratioOrdered By: Liane Stephenson on 04-10-2025 Cholesterol.total/Choles terol in HDL [Mass ratio] 2.66 {ratio} [facility] Serum creatinine measurement (mass/volume)Ordered By: Liane Stephenson on 04-10-2025 Creatinine [Mass/Vol] 1.02 mg/dL 0.70-1.20 [facility] Serum globulin measurementOr dered By: Liane Stephenson on 04-10-2025 Globulin (S) [Mass/Vol] 2.9 g/dL 2.2-4.2 [facility] Serum glucose measurement (m ass/volume)Ordered By: Liane Stephenson on 04-10-2025 Glucose [Mass/Vol] 91 mg/dL 70-99 [facility] Serum or plasma alanine núñez otransferase (ALT) measurementOrdered By: Liane Stephenson on 04-10-2025 ALT [Catalytic activity/Vol] 12 U/L <35 [facility] Serum or plasma albumin osmel urement (mass/volume)Ordered By: Liaen Stephenson on 04-10-2025 Albumin [Mass/Vol] 4.2 g/dL 3.4-4.8 [facility] Serum or plasma albumin/glob ulin mass ratioOrdered By: Liane Stephenson on 04-10-2025 Albumin/Globulin [Mass ratio] 1.5 {ratio} 0.9-2.4 [facility] Serum or plasma alkaline lee ann sphatase measurementOrdered By: Liane Stephenson on 04-10-2025 ALP [Catalytic activity/Vol] 61 U/L 35-104 [facility] Serum or plasma calcium osmel urement (mass/volume)Ordered By: Liane Stephenson on 04-10-2025 Calcium [Mass/Vol] 9.0 mg/dL 7.6-11.0 [facility] Serum or plasma cholesterol in HDL measurement (mass/volume)Ordered By: Liane Stephenson on 04-10-2025 Cholesterol in HDL [Mass/Vol] 65 mg/dL >40 [facility] Comment on above: National Cholesterol Education Program (NCEP) guidelines:<40 mg/dL: Low HDL-cholesterol (major risk factor for CHD)>= 60 mg/dL: High HDL-cholesterol (negative risk factor for CHD)HDL-cholesterol is affected by a number of factors, e.g. smoking, exercise, hormones, sex and age. Serum or plasma cholesterol measurement (mass/volume)Ordered By: Liane Stephenson on 04-10-2025 Cholesterol [Mass/Vol] 173 mg/dL <201 [facility] Comment on above: Cholesterol level, D esirable <200 mg/dLBorderline high cholesterol 200-239 mg/dLHigh cholesterol >=240 mg/dLRecommendations of the NCEP Adult Treatment Panel for the following risk-cutoff thresholds for the [place] population. Serum or plasma urea nitroge n measurement (mass/volume)Ordered By: Liane Stephenson on 04-10-2025 Urea nitrogen [Mass/Vol] 20 mg/dL High 4-19 [facility] Sodium levelOrdered By: Liane Stephenson on 04-10-2025 Sodium [Moles/Vol] 140 mmol/L 133-145 [facility] Total proteinOrdered By: Roula Stephenson on 04-10-2025 Protein [Mass/Vol] 7.1 g/dL 5.9-8.4 [facility] Triglycerides measurementOrd ered By: Liane Stephenson on 04-10-2025 Triglyceride [Mass/Vol] 95 mg/dL <199 [facility] Comment on above: The drugs N-Acetylcy steine and Metamizole may falsely depress this assay. Normal range: <150 mg/dLBorderline High: 150-199 mg/dLHigh: 200-499 mg/dLVery High: >500 mg/dL White blood cell (WBC) count Ordered By: Liane Stephenson on 04-10-2025 WBC (Bld) [#/Vol] 7.6 10*3/uL 4.4-11.0 [facility] HIP, UNI W/ Pelvis 2-3 Views on 06-19-2024 HIP, UNI W/ Pelvis 2-3 Views [facility] Imaging Services [address] [place] [address] HIP, UNI W/ Pelvis 2-3 Views MR#: [id number] Acct: [id number] Name: EUGENIE MATA Rep #: [id number] : 1940 F 83 From: Hair watkins MD PCP: Dr. Liane Stephenson, DO Status: REG CLI Study: HIP, UNI W/ Pelvis 2-3 Views Date of Exam: 10/31 Exam# [id number] Ordering [place]: [place] [id number] STUDY: X-RAY - PELVIS AND RIGHT HIP [...] Arash Cruz MD; Dr. 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 Normal [facility] Absolute lymphocyte countOrd ered By: Carlene Arriaga on 12-08-2023 Lymphocytes Auto (Unsp spec) [#/Vol] 2.17 10*3/uL 0.83-4.51 [facility] Automated lymphocyte count a s percentage of total leukocytesOrdered By: Carlene Arriaga on 12-08-2023 Lymphocytes/100 WBC Auto (Unsp spec) 22.1 % 19-41 [facility] Basophil percentageOrdered B y: Carlene Arriaga on 12-08-2023 Basophils/100 WBC (Bld) 0.5 % 0-1 [facility] Bilirubin [Mass/Vol] 0.40 mg/dL 0.20-1.00 [facility] Comment on above: For patients on eltr ombopag therapy, use of Dimension [place] TBIL is not recommended. Chloride [Moles/Vol] 105 mmol/L 98-107 [facility] Eosinophils/100 WBC (Bld) 0.7 % 0-5 [facility] Glucose [Mass/Vol] 118 mg/dL 74-106 [facility] Comment on above: Fasting Glucose resu lt from 100 to 125 mg/dL suggests IMPAIRED HOMEOSTASIS per A.D.A. criteria. Hemoglobin (Bld) [Mass/Vol] 12.3 g/dL 12.0-15.0 [facility] Monocytes/100 WBC (Bld) 8.7 % 0-10 [facility] Neutrophils (Bld) [#/Vol] 6.6 10*3/uL 2.0-7.7 [facility] Neutrophils/100 WBC (Bld) 67.7 % 47-70 [facility] Potassium [Moles/Vol] 4.0 mmol/L 3.5-5.1 [facility] Protein [Mass/Vol] 6.9 g/dL 6.4-8.2 [facility] Sodium [Moles/Vol] 136 mmol/L 136-145 [facility] WBC (Bld) [#/Vol] 9.8 10*3/uL 4.4-11.0 [facility] Determination of erythrocyte mean corpuscular volume (MCV)Ordered By: Carlene Arriaga on 12-08-2023 MCV (RBC) [Entitic vol] 97.9 fL 81-99 [facility] Erythrocyte distribution wid th ratioOrdered By: Carlene Arriaga on 12-08-2023 Erythrocyte distribution width (RBC) [Ratio] 13.1 % 11.6-14.6 [facility] Erythrocyte distribution wid th standard deviationOrdered By: Carlene Arriaga on 12-08-2023 Erythrocyte distribution width (RBC) [Entitic vol] 47.0 fL 35.1-43.9 [facility] Erythrocyte sedimentation ra teOrdered By: Carlene Arriaga on 12-08-2023 ESR (Bld) [Velocity] 16 mm/h 0-30 [facility] Hematocrit Auto (Bld) [Volum e fraction]Ordered By: Carlene Arriaga on 12-08-2023 Hematocrit (Bld) [Volume fraction] 38.2 % 37-47 [facility] Immature granulocytes/100 WB C Auto (Bld)Ordered By: Carlene Arriaga on 12-08-2023 Immature granulocytes/100 WBC (Bld) 0.300 % 0.0-0.9 [facility] Comment on above: IG% - Immature Granu locytes (promyelocytes, myelocytes and metamyelocytes) > 1% indicates that a LEFT SHIFT is Present. Laboratory - Chemistry and C hemistry - challengeOrdered By: Carlene Arriaga on 12-08-2023 Albumin/Globulin [Mass ratio] 1.0 {ratio} 0.9-2.4 [facility] ALP [Catalytic activity/Vol] 54 U/L 45-117 [facility] ALT [Catalytic activity/Vol] 18 U/L 13-56 [facility] CO2 [Moles/Vol] 26.0 mmol/L 21.0-32.0 [facility] Globulin (S) [Mass/Vol] 3.5 g/dL 2.2-4.2 [facility] Urea nitrogen/Creatinine [Mass ratio] 20.6 mg/mg 10-20 [facility] Laboratory - Hematology and Cell countsOrdered By: Carlene Arriaga on 12-08-2023 MCH (RBC) [Entitic mass] 31.5 pg 27.0-32.0 [facility] MCHC (RBC) [Mass/Vol] 32.2 g/dL 32-36 [facility] Nucleated RBC/100 WBC (Bld) [Ratio] 0 % 0-5 [facility] Platelets (Bld) [#/Vol] 264 10*3/uL 150-450 [facility] No Panel InformationOrdered By: Carlene Arriaga on 12-08-2023 C-Reactive Protein Extended Range < 2.90 mg/L 0.0-3.0 [facility] Comment on above: C-Reactive Protein ( CRP) provides useful information for thediagnosis, therapy and monitoring of inflammatory processesand associated diseases. For the evaluation of Relative Riskfor Cardiovascular Disease, a High Sensitivity CRP (HSCRP)should be ordered. D-Dimer Quantitative (PE/DVT) < 0.27 FEU/ug/m 0.27-0.49 [facility] Comment on above: NORMAL D-Dimer level (<0.50) indicates no DVT or PE. Estimated GFR (MDRD) Amer 75 mL/min >60 [facility] Comment on above: GFR Calc Estimated GFR (MDRD) Non-Af Amer 62 mL/min >60 [facility] Comment on above: Non- GFR Calc Platelet mean volume [place] ker (Bld) [Entitic vol]Ordered By: Carlene Arriaga on 12-08-2023 Platelet mean volume (Bld) [Entitic vol] 10.1 fL 6.2-12.0 [facility] RBC Auto (Bld) [#/Vol]Ordere d By: Carlene Arriaga on 12-08-2023 RBC (Bld) [#/Vol] 3.90 10*6/uL 4.2-5.4 [facility] Serum or plasma calcium osmel urement (mass/volume)Ordered By: Carlene Arriaga on 12-08-2023 Calcium [Mass/Vol] 9.1 mg/dL 8.5-10.1 [facility] Serum or plasma creatinine m easurement (mass/volume)Ordered By: Carlene Arriaga on 12-08-2023 Creatinine [Mass/Vol] 0.92 mg/dL 0.55-1.02 [facility] Comment on above: The validity of the calculated GFR & GFRAA in patients over 70 years has not been determined. Clinical correlation is essential. Serum or plasma urea nitroge n measurement (mass/volume)Ordered By: Carlene Arriaga on 12-08-2023 Urea nitrogen [Mass/Vol] 19 mg/dL 7-18 [facility] Thin prep Papanicolaou smear with manual screeningOrdered By: [place] Bart on 12-08-2023 Thin prep Papanicolaou smear with manual screening 3.4 g/dL 3.2-5.0 [facility] Thin prep Papanicolaou smear with manual screening 15 U/L 15-37 [facility] Thin prep Papanicolaou smear with manual screening 5 5-15 [facility] Basophil percentageOrdered B y: Liane Stephenson on 03-24-2023 Bilirubin [Mass/Vol] 0.30 mg/dL 0.20-1.00 [facility] Comment on above: For patients on eltr ombopag therapy, use of Dimension [place] TBIL is not recommended. Chloride [Moles/Vol] 108 mmol/L 98-107 [facility] Glucose [Mass/Vol] 84 mg/dL 74-106 [facility] Potassium [Moles/Vol] 4.0 mmol/L 3.5-5.1 [facility] Protein [Mass/Vol] 7.3 g/dL 6.4-8.2 [facility] Sodium [Moles/Vol] 141 mmol/L 136-145 [facility] Laboratory - Chemistry and C hemistry - challengeOrdered By: Liane Stephenson on 03-24-2023 ALP [Catalytic activity/Vol] 76 U/L 45-117 [facility] ALT [Catalytic activity/Vol] 24 U/L 13-56 [facility] CO2 [Moles/Vol] 27.0 mmol/L 21.0-32.0 [facility] Globulin (S) [Mass/Vol] 3.9 g/dL 2.2-4.2 [facility] Urea nitrogen/Creatinine [Mass ratio] 23.3 mg/mg 10-20 [facility] No Panel InformationOrdered By: Liane Stephenson on 03-24-2023 Estimated GFR (MDRD) Amer 66 mL/min >60 [facility] Comment on above: GFR Calc Estimated GFR (MDRD) Non-Af Amer 55 mL/min >60 [facility] Comment on above: Non- GFR Calc Serum or plasma albumin osmel urement (mass/volume)Ordered By: Liane Stephenson on 03-24-2023 Albumin [Mass/Vol] 3.4 g/dL 3.2-5.0 [facility] Serum or plasma albumin/glob ulin mass ratioOrdered By: Liane Stephenson on 03-24-2023 Albumin/Globulin [Mass ratio] 0.9 {ratio} 0.9-2.4 [facility] Serum or plasma calcium osmel urement (mass/volume)Ordered By: Liane Stephenson on 03-24-2023 Calcium [Mass/Vol] 9.4 mg/dL 8.5-10.1 [facility] Serum or plasma creatinine m easurement (mass/volume)Ordered By: Liane Stephenson on 03-24-2023 Creatinine [Mass/Vol] 1.03 mg/dL 0.55-1.02 [facility] Comment on above: The validity of the calculated GFR & GFRAA in patients over 70 years has not been determined. Clinical correlation is essential. Serum or plasma urea nitroge n measurement (mass/volume)Ordered By: Liane Stephenson on 03-24-2023 Urea nitrogen [Mass/Vol] 24 mg/dL 7-18 [facility] Serum or plasma uric acid me asurement (mass/volume)Ordered By: Liane Stephenson on 03-24-2023 Urate [Mass/Vol] 5.8 mg/dL 2.6-6.0 [facility] Comment on above: The drugs N-Acetylcy steine and Metamizole may falsely depress this assay. Thin prep Papanicolaou smear with manual screeningOrdered By: Liane Stephenson on 03-24-2023 Thin prep Papanicolaou smear with manual screening 24 U/L 15-37 [facility] Thin prep Papanicolaou smear with manual screening 6 5-15 [facility] Basophil percentageOrdered B y: Dr. Stephenson on 02-08-2023 Bilirubin [Mass/Vol] 0.30 mg/dL 0.20-1.00 [facility] Comment on above: For patients on eltr ombopag therapy, use of Dimension [place] TBIL is not recommended. Chloride [Moles/Vol] 109 mmol/L 98-107 [facility] Glucose [Mass/Vol] 93 mg/dL 74-106 [facility] Potassium [Moles/Vol] 4.4 mmol/L 3.5-5.1 [facility] Protein [Mass/Vol] 7.8 g/dL 6.4-8.2 [facility] Sodium [Moles/Vol] 141 mmol/L 136-145 [facility] Erythrocyte sedimentation ra teOrdered By: Dr. Stephenson on 02-08-2023 ESR (Bld) [Velocity] 15 mm/h 0-30 [facility] Laboratory - Chemistry and C hemistry - challengeOrdered By: Dr. Stephenson on 02-08-2023 ALP [Catalytic activity/Vol] 49 U/L 45-117 [facility] ALT [Catalytic activity/Vol] 21 U/L 13-56 [facility] CO2 [Moles/Vol] 26.0 mmol/L 21.0-32.0 [facility] Globulin (S) [Mass/Vol] 4.2 g/dL 2.2-4.2 [facility] Urea nitrogen/Creatinine [Mass ratio] 17.6 mg/mg 10-20 [facility] No Panel InformationOrdered By: Dr. Stephenson on 02-08-2023 Estimated GFR (MDRD) Amer 67 mL/min >60 [facility] Comment on above: GFR Calc Estimated GFR (MDRD) Non-Af Amer 55 mL/min >60 [facility] Comment on above: Non- GFR Calc Serum or plasma C reactive p rotein measurement (mass/volume)Ordered By: Dr. Stephenson on 02-08-2023 CRP [Mass/Vol] mg/L 0.0-3.0 [facility] Comment on above: C-Reactive Protein ( CRP) provides useful information for thediagnosis, therapy and monitoring of inflammatory processesand associated diseases. For the evaluation of Relative Riskfor Cardiovascular Disease, a High Sensitivity CRP (HSCRP)should be ordered. Serum or plasma albumin osmel urement (mass/volume)Ordered By: Dr. Stephenson on 02-08-2023 Albumin [Mass/Vol] 3.6 g/dL 3.2-5.0 [facility] Serum or plasma albumin/glob ulin mass ratioOrdered By: Dr. Stephenson on 02-08-2023 Albumin/Globulin [Mass ratio] 0.9 {ratio} 0.9-2.4 [facility] Serum or plasma calcium osmel urement (mass/volume)Ordered By: Dr. Stephenson on 02-08-2023 Calcium [Mass/Vol] 9.5 mg/dL 8.5-10.1 [facility] Serum or plasma creatinine m easurement (mass/volume)Ordered By: Dr. Stephenson on 02-08-2023 Creatinine [Mass/Vol] 1.02 mg/dL 0.55-1.02 [facility] Comment on above: The validity of the calculated GFR & GFRAA in patients over 70 years has not been determined. Clinical correlation is essential. Serum or plasma urea nitroge n measurement (mass/volume)Ordered By: Dr. Stephenson on 02-08-2023 Urea nitrogen [Mass/Vol] 18 mg/dL 7-18 [facility] Serum or plasma uric acid me asurement (mass/volume)Ordered By: Dr. Stephenson on 02-08-2023 Urate [Mass/Vol] 6.6 mg/dL 2.6-6.0 [facility] Comment on above: The drugs N-Acetylcy steine and Metamizole may falsely depress this assay. Thin prep Papanicolaou smear with manual screeningOrdered By: Dr. Stephenson on 02-08-2023 Thin prep Papanicolaou smear with manual screening 23 U/L 15-37 [facility] Thin prep Papanicolaou smear with manual screening 6 5-15 [facility] Absolute lymphocyte countOrd ered By: Dr. Pugh on 01-01-2023 Lymphocytes Auto (Unsp spec) [#/Vol] 3.29 10*3/uL 0.83-4.51 [facility] Basophil percentageOrdered B y: Dr. Pugh on 01-01-2023 Basophils/100 WBC (Bld) 0.7 % 0-1 [facility] Eosinophils/100 WBC (Bld) 2.7 % 0-5 [facility] Neutrophils (Bld) [#/Vol] 4.6 10*3/uL 2.0-7.7 [facility] Neutrophils/100 WBC (Bld) 50.4 % 47-70 [facility] WBC (Bld) [#/Vol] 9.0 10*3/uL 4.4-11.0 [facility] Blood erythrocytes count (nu mber/volume)Ordered By: Dr. Pugh on 01-01-2023 RBC (Bld) [#/Vol] 4.59 10*6/uL 4.2-5.4 [facility] Blood hemoglobin measurement (mass/volume)Ordered By: Dr. Pugh on 01-01-2023 Hemoglobin (Bld) [Mass/Vol] 13.9 g/dL 12.0-15.0 [facility] Blood lymphocytes/100 leukoc ytesOrdered By: Dr. Pugh on 01-01-2023 Lymphocytes/100 WBC (Bld) 36.5 % 19-41 [facility] Blood monocytes/100 leukocyt esOrdered By: Dr. Pugh on 01-01-2023 Monocytes/100 WBC (Bld) 9.6 % 0-10 [facility] Blood platelet mean volumeOr dered By: Dr. Pugh on 01-01-2023 Platelet mean volume (Bld) [Entitic vol] 9.6 fL 6.2-12.0 [facility] Determination of erythrocyte mean corpuscular volume (MCV)Ordered By: Dr. Pugh on 01-01-2023 MCV (RBC) [Entitic vol] 92.8 fL 81-99 [facility] Hematocrit Auto (Bld) [Volum e fraction]Ordered By: Dr. Pugh on 01-01-2023 Hematocrit (Bld) [Volume fraction] 42.6 % 37-47 [facility] Laboratory - Hematology and Cell countsOrdered By: Dr. Pugh on 01-01-2023 Erythrocyte distribution width (RBC) [Entitic vol] 44.2 fL 35.1-43.9 [facility] Erythrocyte distribution width (RBC) [Ratio] 12.9 % 11.6-14.6 [facility] Immature granulocytes/100 WBC (Bld) 0.100 % 0.0-0.9 [facility] Comment on above: IG% - Immature Granu locytes (promyelocytes, myelocytes and metamyelocytes) > 1% indicates that a LEFT SHIFT is Present. MCH (RBC) [Entitic mass] 30.3 pg 27.0-32.0 [facility] Nucleated RBC/100 WBC (Bld) [Ratio] 0 % 0-5 [facility] MCHC Auto (RBC) [Mass/Vol]Or dered By: Dr. Pugh on 01-01-2023 MCHC (RBC) [Mass/Vol] 32.6 g/dL 32-36 [facility] No Panel InformationOrdered By: Dr. Pugh on 01-01-2023 D-Dimer Quantitative (PE/DVT) 0.36 FEU/ug/m 0.27-0.49 [facility] Comment on above: NORMAL D-Dimer level (<0.50) indicates no DVT or PE. Platelets bldOrdered By: Dr. Pugh on 01-01-2023 Platelets (Bld) [#/Vol] 258 10*3/uL 150-450 [facility] Basophil percentageOrdered B y: Dr. Stephenson on 10-14-2022 Bilirubin [Mass/Vol] 0.40 mg/dL 0.20-1.00 [facility] Comment on above: For patients on eltr ombopag therapy, use of Dimension [place] TBIL is not recommended. Protein [Mass/Vol] 7.3 g/dL 6.4-8.2 [facility] Direct bilirubinOrdered By: Dr. Stephenson on 10-14-2022 Bilirubin.direct [Mass/Vol] 0.11 mg/dL 0.00-0.30 [facility] Laboratory - Chemistry and C hemistry - challengeOrdered By: Dr. Stephenson on 10-14-2022 ALP [Catalytic activity/Vol] 86 U/L 45-117 [facility] ALT [Catalytic activity/Vol] 174 U/L [facility] Globulin (S) [Mass/Vol] 3.9 g/dL 2.2-4.2 [facility] Serum or plasma albumin osmel urement (mass/volume)Ordered By: Dr. Stephenson on 10-14-2022 Albumin [Mass/Vol] 3.4 g/dL 3.2-5.0 [facility] Thin prep Papanicolaou smear with manual screeningOrdered By: Dr. Stephenson on 10-14-2022 Thin prep Papanicolaou smear with manual screening 32 U/L 15-37 [facility] Basophil percentageOrdered B y: Dr. Morrow on 10-09-2022 Bilirubin [Mass/Vol] 0.50 mg/dL 0.20-1.00 [facility] Comment on above: For patients on eltr ombopag therapy, use of Dimension [place] TBIL is not recommended. Protein [Mass/Vol] 5.5 g/dL 6.4-8.2 [facility] Direct bilirubinOrdered By: Dr. Morrow on 10-09-2022 Bilirubin.direct [Mass/Vol] 0.16 mg/dL 0.00-0.30 [facility] Laboratory - Chemistry and C hemistry - challengeOrdered By: Dr. Morrow on 10-09-2022 ALP [Catalytic activity/Vol] 91 U/L 45-117 [facility] ALT [Catalytic activity/Vol] 518 U/L [facility] Globulin (S) [Mass/Vol] 3.1 g/dL 2.2-4.2 [facility] Serum or plasma albumin osmel urement (mass/volume)Ordered By: Dr. Morrow on 10-09-2022 Albumin [Mass/Vol] 2.4 g/dL 3.2-5.0 [facility] Thin prep Papanicolaou smear with manual screeningOrdered By: Dr. Morrow on 10-09-2022 Thin prep Papanicolaou smear with manual screening 185 U/L 15-37 [facility] Absolute lymphocyte countOrd ered By: Dr. Parsons on 10-08-2022 Lymphocytes Auto (Unsp spec) [#/Vol] 2.75 10*3/uL 0.83-4.51 [facility] Basophil percentageOrdered B y: Dr. Parsons on 10-08-2022 Basophils/100 WBC (Bld) 0.3 % 0-1 [facility] Chloride [Moles/Vol] 109 mmol/L 98-107 [facility] Cholesterol [Mass/Vol] 135 mg/dL <200 [facility] Comment on above: <200 mg/dL Desirable 200-240 mg/dL Borderline >240 mg/dL High Risk Eosinophils/100 WBC (Bld) 2.6 % 0-5 [facility] Glucose [Mass/Vol] 83 mg/dL 74-106 [facility] Neutrophils (Bld) [#/Vol] 7.0 10*3/uL 2.0-7.7 [facility] Neutrophils/100 WBC (Bld) 64.6 % 47-70 [facility] Potassium [Moles/Vol] 3.7 mmol/L 3.5-5.1 [facility] Sodium [Moles/Vol] 142 mmol/L 136-145 [facility] Triglyceride [Mass/Vol] 131 mg/dL <199 [facility] Comment on above: The drugs N-Acetylcy steine and Metamizole may falsely depress this assay.Serum Triglycerides Reference Interval Normal <150 mg/dL Borderline high 150 - 199 mg/dL High 200 - 499 mg/dL Very High > or = 500 mg/dL WBC (Bld) [#/Vol] 10.9 10*3/uL 4.4-11.0 [facility] Blood erythrocytes count (nu mber/volume)Ordered By: Dr. Parsons on 10-08-2022 RBC (Bld) [#/Vol] 4.25 10*6/uL 4.2-5.4 [facility] Blood hemoglobin measurement (mass/volume)Ordered By: Dr. Parsons on 10-08-2022 Hemoglobin (Bld) [Mass/Vol] 12.8 g/dL 12.0-15.0 [facility] Blood lymphocytes/100 leukoc ytesOrdered By: Dr. Parsons on 10-08-2022 Lymphocytes/100 WBC (Bld) 25.3 % 19-41 [facility] Blood monocytes/100 leukocyt esOrdered By: Dr. Parsons on 10-08-2022 Monocytes/100 WBC (Bld) 6.7 % 0-10 [facility] Blood platelet mean volumeOr dered By: Dr. Parsons on 10-08-2022 Platelet mean volume (Bld) [Entitic vol] 9.7 fL 6.2-12.0 [facility] Determination of erythrocyte mean corpuscular volume (MCV)Ordered By: Dr. Parsons on 10-08-2022 MCV (RBC) [Entitic vol] 93.6 fL 81-99 [facility] Hematocrit Auto (Bld) [Volum e fraction]Ordered By: Dr. Parsons on 10-08-2022 Hematocrit (Bld) [Volume fraction] 39.8 % 37-47 [facility] Laboratory - Chemistry and C hemistry - challengeOrdered By: Dr. Parsons on 10-08-2022 CO2 [Moles/Vol] 26.0 mmol/L 21.0-32.0 [facility] Lipase [Catalytic activity/Vol] 190 U/L 73-393 [facility] Urea nitrogen/Creatinine [Mass ratio] 19.5 mg/mg 10-20 [facility] Laboratory - Hematology and Cell countsOrdered By: Dr. Parsons on 10-08-2022 Erythrocyte distribution width (RBC) [Entitic vol] 45.7 fL 35.1-43.9 [facility] Erythrocyte distribution width (RBC) [Ratio] 13.4 % 11.6-14.6 [facility] Immature granulocytes/100 WBC (Bld) 0.500 % 0.0-0.9 [facility] Comment on above: IG% - Immature Granu locytes (promyelocytes, myelocytes and metamyelocytes) > 1% indicates that a LEFT SHIFT is Present. MCH (RBC) [Entitic mass] 30.1 pg 27.0-32.0 [facility] Nucleated RBC/100 WBC (Bld) [Ratio] 0.2 % 0-5 [facility] MCHC Auto (RBC) [Mass/Vol]Or dered By: Dr. Parsons on 10-08-2022 MCHC (RBC) [Mass/Vol] 32.2 g/dL 32-36 [facility] No Panel InformationOrdered By: Dr. Parsons on 10-08-2022 Estimated Creatinine Clearance Calc 54.09 ml/min [facility] Estimated GFR (MDRD) Amer 86 mL/min >60 [facility] Comment on above: GFR Calc Estimated GFR (MDRD) Non-Af Amer 71 mL/min >60 [facility] Comment on above: Non- GFR Calc Platelets bldOrdered By: Dr. Parsons on 10-08-2022 Platelets (Bld) [#/Vol] 319 10*3/uL 150-450 [facility] Serum or plasma albumin/glob ulin mass ratioOrdered By: Dr. Parsons on 10-08-2022 Albumin/Globulin [Mass ratio] 0.8 {ratio} 0.9-2.4 [facility] Serum or plasma calcium osmel urement (mass/volume)Ordered By: Dr. Parsons on 10-08-2022 Calcium [Mass/Vol] 7.8 mg/dL 8.5-10.1 [facility] Serum or plasma cholesterol in HDL measurement (mass/volume)Ordered By: Dr. Parsons on 10-08-2022 Cholesterol in HDL [Mass/Vol] 52 mg/dL >40 [facility] Comment on above: The drugs N-Acetylcy steine and Metamizole may falsely depress this assay. Reference Range HDL <40 mg/dL Low HDL Cholesterol HDL >or= 60 mg/dL High HDL Cholesterol Serum or plasma cholesterol in VLDL measurement (mass/volume)Ordered By: Dr. Parsons on 10-08-2022 Cholesterol in VLDL [Mass/Vol] 26 mg/dL 5-40 [facility] Serum or plasma creatinine m easurement (mass/volume)Ordered By: Dr. Parsons on 10-08-2022 Creatinine [Mass/Vol] 0.82 mg/dL 0.55-1.02 [facility] Comment on above: The validity of the calculated GFR & GFRAA in patients over 70 years has not been determined. Clinical correlation is essential. Serum or plasma low density lipoprotein (LDL) cholesterol measurement (mass/volume)Ordered By: Dr. Parsons on 10-08-2022 Cholesterol in LDL [Mass/Vol] 57 mg/dL 0-130 [facility] Serum or plasma urea nitroge n measurement (mass/volume)Ordered By: Dr. Parsons on 10-08-2022 Urea nitrogen [Mass/Vol] 16 mg/dL 7-18 [facility] Thin prep Papanicolaou smear with manual screeningOrdered By: Dr. Parsons on 10-08-2022 Thin prep Papanicolaou smear with manual screening 7 5-15 [facility] Absolute lymphocyte counton 10-07-2022 Lymphocytes Auto (Unsp spec) [#/Vol] 1.76 10*3/uL 0.83-4.51 [facility] Work Phone: Acetaminophen level (mass/vo lume)Ordered By: Dr. Maier on 10-07-2022 Acetaminophen (Unsp spec) [Mass/Vol] < 2.0 ug/mL 10.0-30.0 [facility] Basophil percentageon 2021 Basophils/100 WBC (Bld) 0.3 % 0-1 [facility] Work Phone: Bilirubin [Mass/Vol] 1.10 mg/dL 0.20-1.00 [facility] Work Phone: Comment on above: For patients on eltr ombopag therapy, use of Dimension [place] TBIL is not recommended. Chloride [Moles/Vol] 103 mmol/L 98-107 [facility] Work Phone: Eosinophils/100 WBC (Bld) 2.6 % 0-5 [facility] Work Phone: Glucose [Mass/Vol] 120 mg/dL 74-106 [facility] Work Phone: Comment on above: Fasting Glucose resu lt from 100 to 125 mg/dL suggests IMPAIRED HOMEOSTASIS per A.D.A. criteria. Neutrophils (Bld) [#/Vol] 7.4 10*3/uL 2.0-7.7 [facility] Work Phone: Neutrophils/100 WBC (Bld) 72.0 % 47-70 [facility] Work Phone: Potassium [Moles/Vol] 3.7 mmol/L 3.5-5.1 [facility] Work Phone: Protein [Mass/Vol] 7.2 g/dL 6.4-8.2 [facility] Work Phone: Sodium [Moles/Vol] 140 mmol/L 136-145 [facility] Work Phone: [phone] WBC (Bld) [#/Vol] 10.3 10*3/uL 4.4-11.0 [facility] Work Phone: Blood erythrocytes count (nu mber/volume)on 10-07-2022 RBC (Bld) [#/Vol] 4.69 10*6/uL 4.2-5.4 [facility] Work Phone: [phone] Blood hemoglobin measurement (mass/volume)on 10-07-2022 Hemoglobin (Bld) [Mass/Vol] 14.1 g/dL 12.0-15.0 [facility] Work Phone: Blood lymphocytes/100 leukoc yteson 10-07-2022 Lymphocytes/100 WBC (Bld) 17.0 % 19-41 [facility] Work Phone: Blood monocytes/100 leukocyt eson 10-07-2022 Monocytes/100 WBC (Bld) 7.6 % 0-10 [facility] Work Phone: Blood platelet mean volumeon 10-07-2022 Platelet mean volume (Bld) [Entitic vol] 9.5 fL 6.2-12.0 [facility] Work Phone: Determination of erythrocyte mean corpuscular volume (MCV)on 10-07-2022 MCV (RBC) [Entitic vol] 92.1 fL 81-99 [facility] Work Phone: Hematocrit Auto (Bld) [Volum e fraction]on 10-07-2022 Hematocrit (Bld) [Volume fraction] 43.2 % 37-47 [facility] Work Phone: INR in Blood by Coagulation assayOrdered By: Dr. Parsons on 10-07-2022 INR Coag (Bld) [Relative time] 1.0 {INR} [facility] Laboratory - Chemistry and C hemistry - challengeon 10-07-2022 ALP [Catalytic activity/Vol] 155 U/L 45-117 [facility] Work Phone: ALT [Catalytic activity/Vol] 1430 U/L 13-56 [facility] Work Phone: [phone] CO2 [Moles/Vol] 31.0 mmol/L 21.0-32.0 [facility] Work Phone: Globulin (S) [Mass/Vol] 3.9 g/dL 2.2-4.2 [facility] Work Phone: Lipase [Catalytic activity/Vol] 580 U/L 73-393 [facility] Work Phone: Urea nitrogen/Creatinine [Mass ratio] 19.8 mg/mg 10-20 [facility] Work Phone: Laboratory - CoagulationOrde red By: Dr. Parsons on 10-07-2022 aPTT Coag (Bld) [Time] 24.3 s 24.1-36.2 [facility] PT Coag (PPP) [Time] 12.6 s 11.7-14.9 [facility] Laboratory - Hematology and Cell countson 10-07-2022 Erythrocyte distribution width (RBC) [Entitic vol] 45.1 fL 35.1-43.9 [facility] Work Phone: Erythrocyte distribution width (RBC) [Ratio] 13.4 % 11.6-14.6 [facility] Work Phone: Immature granulocytes/100 WBC (Bld) 0.500 % 0.0-0.9 [facility] Work Phone: Comment on above: IG% - Immature Granu locytes (promyelocytes, myelocytes and metamyelocytes) > 1% indicates that a LEFT SHIFT is Present. MCH (RBC) [Entitic mass] 30.1 pg 27.0-32.0 [facility] Work Phone: Nucleated RBC/100 WBC (Bld) [Ratio] 0 % 0-5 [facility] Work Phone: Laboratory - Microbiology an d Antimicrobial susceptibilityOrdered By: Dr. Parsons on 10-07-2022 SARS-CoV-2 (COVID-19) RNA ARLEN+probe Ql (Unsp spec) Not detected Not Detect [facility] Comment on above: Normal Reference Ran ge: [...] (Unsp spec) [facility] MCHC Auto (RBC) [Mass/Vol]on 10-07-2022 MCHC (RBC) [Mass/Vol] 32.6 g/dL 32-36 [facility] Work Phone: No Panel InformationOrdered By: Dr. Maier on 10-07-2022 Hepatitis A IgM Antibody Negative Negative [facility] Hepatitis B Core IgM Antibody Negative Negative [facility] Hepatitis C Antibody (EIA) 0.1 s/co ratio 0.0-0.9 [facility] Hepatitis C Antibody Comment Comment . [facility] Comment on above: NegativeNot infected with HCV, unless recent infection issuspected or other evidence exists to indicate HCVinfection.Performed at: [facility] [id number] Director: Isaac Jiang PhD, Phone: [phone] Troponin I High Sensitivity 6 pg/mL 3.0-54.0 [facility] Comment on above: Please Note: New Eun t Units and Gender Specific Reference Ranges. For more information see Policy Stat Procedure [place] High Sensitivity Troponin (TNIH) and attachments. No Panel Informationon 10-07 Estimated Creatinine Clearance Calc 48.95 ml/min [facility] Work Phone: Estimated GFR (MDRD) Amer 77 mL/min >60 [facility] Work Phone: Comment on above: GFR Calc Estimated GFR (MDRD) Non-Af Amer 63 mL/min >60 [facility] Work Phone: Comment on above: Non- GFR Calc Platelets bldon 10-07-2022 Platelets (Bld) [#/Vol] 351 10*3/uL 150-450 [facility] Work Phone: Serum or plasma albumin osmel urement (mass/volume)on 10-07-2022 Albumin [Mass/Vol] 3.3 g/dL 3.2-5.0 [facility] Work Phone: Serum or plasma albumin/glob ulin mass ratioon 10-07-2022 Albumin/Globulin [Mass ratio] 0.8 {ratio} 0.9-2.4 [facility] Work Phone: Serum or plasma calcium osmel urement (mass/volume)on 10-07-2022 Calcium [Mass/Vol] 9.3 mg/dL 8.5-10.1 [facility] Work Phone: Serum or plasma creatinine m easurement (mass/volume)on 10-07-2022 Creatinine [Mass/Vol] 0.91 mg/dL 0.55-1.02 [facility] Work Phone: Comment on above: The validity of the calculated GFR & GFRAA in patients over 70 years has not been determined. Clinical correlation is essential. Serum or plasma hepatitis B virus surface antigen detection by immunoassayOrdered By: Dr. Maier on 10-07-2022 HBV surface Ag IA Ql Negative Negative [facility] Serum or plasma urea nitroge n measurement (mass/volume)on 10-07-2022 Urea nitrogen [Mass/Vol] 18 mg/dL 7-18 [facility] Work Phone: Thin prep Papanicolaou smear with manual screeningon 10-07-2022 Thin prep Papanicolaou smear with manual screening 1019 U/L 15-37 [facility] Work Phone: Thin prep Papanicolaou smear with manual screening 6 5-15 [facility] Work Phone: Absolute lymphocyte counton 04-16-2022 Lymphocytes Auto (Unsp spec) [#/Vol] 2.90 10*3/uL 0.83-4.51 [facility] Work Phone: Basophil percentageon 2021 Basophils/100 WBC (Bld) 0.7 % 0-1 [facility] Work Phone: Eosinophils/100 WBC (Bld) 1.1 % 0-5 [facility] Work Phone: Neutrophils (Bld) [#/Vol] 5.7 10*3/uL 2.0-7.7 [facility] Work Phone: Neutrophils/100 WBC (Bld) 59.6 % 47-70 [facility] Work Phone: WBC (Bld) [#/Vol] 9.6 10*3/uL 4.4-11.0 [facility] Work Phone: Blood erythrocytes count (nu mber/volume)on 04-16-2022 RBC (Bld) [#/Vol] 4.29 10*6/uL 4.2-5.4 [facility] Work Phone: Blood hemoglobin measurement (mass/volume)on 04-16-2022 Hemoglobin (Bld) [Mass/Vol] 13.3 g/dL 12.0-15.0 [facility] Work Phone: Blood lymphocytes/100 leukoc yteson 04-16-2022 Lymphocytes/100 WBC (Bld) 30.1 % 19-41 [facility] Work Phone: Blood monocytes/100 leukocyt eson 04-16-2022 Monocytes/100 WBC (Bld) 8.1 % 0-10 [facility] Work Phone: Blood platelet mean volumeon 04-16-2022 Platelet mean volume (Bld) [Entitic vol] 9.8 fL 6.2-12.0 [facility] Work Phone: Determination of erythrocyte mean corpuscular volume (MCV)on 04-16-2022 MCV (RBC) [Entitic vol] 94.6 fL 81-99 [facility] Work Phone: Hematocrit Auto (Bld) [Volum e fraction]on 04-16-2022 Hematocrit (Bld) [Volume fraction] 40.6 % 37-47 [facility] Work Phone: Iron measurement (mass/mass) on 04-16-2022 Iron (Unsp spec) [Mass/Mass] 89 ug/dL 50-170 [facility] Work Phone: Laboratory - Hematology and Cell countson 04-16-2022 Erythrocyte distribution width (RBC) [Entitic vol] 44.2 fL 35.1-43.9 [facility] Work Phone: Erythrocyte distribution width (RBC) [Ratio] 12.7 % 11.6-14.6 [facility] Work Phone: Immature granulocytes/100 WBC (Bld) 0.400 % 0.0-0.9 [facility] Work Phone: Comment on above: IG% - Immature Granu locytes (promyelocytes, myelocytes and metamyelocytes) > 1% indicates that a LEFT SHIFT is Present. MCH (RBC) [Entitic mass] 31.0 pg 27.0-32.0 [facility] Work Phone: Nucleated RBC/100 WBC (Bld) [Ratio] 0 % 0-5 [facility] Work Phone: MCHC Auto (RBC) [Mass/Vol]on 04-16-2022 MCHC (RBC) [Mass/Vol] 32.8 g/dL 32-36 [facility] Work Phone: Platelets bldon 06-09-2022 Platelets (Bld) [#/Vol] 331 10*3/uL 150450 [facility] Work Phone: CNOVon 07-01-2021 CNOV Office Visit (GASTWS ) EUGENIE MATA ([id number]) 1940 F Date Time Provider Department 07/01/21 [...] colonic polyp (more content not included)... [facility]ZACK[facility] EUGENIE MATA ([id number]) 1940 F Date Time Provider Department 06/03/21 [...] citrate. Thanks Mindy Nascimento APRN.GOLDEN Camaraia Benito VARMA 06/12/2021 1:44 PM Signed LEFT [...] Status:Closed by MINDY NASCIMENTO on 06/23/[address] [facility] HISTORY PHYSICALon HISTORY PHYSICAL HNO ID: [id number] Author: Lucas Buchanan MD Service: General Surgery [...] May 29, 2021 TIME: 7:[address] [facility] NURSING PROGon 05-29-2021 NURSING PROG HNO ID: [id number] Author: Gracy Aguilar RN Service: ? Author Type: Registered Nurse Type: Nursing Progress Note Filed: 05/29/2021 8:27 AM Note Text: Patient arrived to PACU, on left side, abdomen soft. Patient resting comfortably with no pain. Call light within reach. Gracy Aguilar RN [facility] NURSING PROG HNO ID: [id number] Author: Aleta Ely RN Service: ? Author [...] CNOV Office Visit (GASTWS ) EUGENIE MATA ([id number]) 1940 F Date Time Provider Department 04/24/21 [...] tablet daily (more content not included)... Normal [facility] Akanksha 04-24-2021 LONNIE Telephone (ZACK) EUGENIE MATA ([id number]) 1940 F Date Time Provider Department 04/24/21 MINDY NASCIMENTO During your visit today, we recorded the following information about you: Jeimy Oliver LPN 04/24/2021 3:00 PM Addendum Patient is scheduled at [facility] on 05/29/[address] Buchanan for [...] physical limitations: No Any cognitive limitations: No Manager Intel/Telephoto Engineer required: No Communication Limitations: No Segun Viramontes [...] colon [D12.6] Order(s):SURGICAL REQUEST - ELECTIVE (06/2020) [1628034] Order #: [id number]: 1 Prescriptions as of 06/12/2021 - polyethylene [...] Status:Closed by ROBERT RODRIGUEZ on 05/02/[address] [facility] HISTORY PHYSICALon HISTORY PHYSICAL HNO ID: [id number] Author: Mindy Nascimento APRN.DINKEY PRESS OPERATOR Service: ? Author Type: Nurse Practitioner Type: [...] diclofenac, E (more content not included)... Normal [facility] HOSPon 04-24-2021 HOSP Patient:Eugenie Mata MRN: [...] entered within the past [address] [facility] Laboratory - Microbiology an d Antimicrobial susceptibility Respiratory pathogens DNA and RNA 12b panel ARLEN+probe (Unsp spec) [facility] Work Phone: Vital Signs Date Time Vital Sign Value Performing Clinician Faci lity 05-22-2025 12:08-0400 Body temperature 97.9 [degF] Dr. Liane Stephenson DO Work Phone: [facility] 05-22-2025 12:08-0400 Diastolic blood pressure 54 mm[Hg] Dr. Liane Stephenson DO Work Phone: [facility] 05-22-2025 12:08-0400 Heart rate 58 /min Dr. Liane Stephenson DO Work Phone: [facility] 05-22-2025 12:08-0400 Respiratory rate 17 /min Dr. Liane Stephenson DO Work Phone: [facility] 05-22-2025 12:08-0400 SaO2% (BldA) [Mass fraction] 100 % Dr. Liane Stephenson DO Work Phone: [facility] 05-22-2025 12:08-0400 Systolic blood pressure 102 mm[Hg] Dr. Liane Stephenson DO Work Phone: [facility] 05-22-2025 03:29-0400 Body mass index (BMI) [Ratio] 29 kg/m2 Dr. Liane Stephenson DO Work Phone: [facility] 05-22-2025 03:29-0400 Body weight 62.[address] Liane Stephenson DO Work Phone: [facility] 05-20-2025 20:04-0400 Body height 147.[address] Liane Stephenson DO Work Phone: [facility] 05-20-2025 19:10-0400 Diastolic blood pressure 82 mm[Hg] Dr. Liane Stephenson DO Work Phone: [facility] 05-20-2025 19:10-0400 Heart rate 62 /min Dr. Liane Stephenson DO Work Phone: [facility] 05-20-2025 19:10-0400 Respiratory rate 24 /min Dr. Liane Stephenson DO Work Phone: [facility] 05-20-2025 19:10-0400 SaO2% (BldA) [Mass fraction] 95 % Dr. Liane Stephenson DO Work Phone: [facility] 05-20-2025 19:10-0400 Systolic blood pressure 123 mm[Hg] Dr. Liane Stephenson DO Work Phone: [facility] 05-20-2025 17:26-0400 Body temperature 98.2 [degF] Dr. Liane Stephenson DO Work Phone: [facility] 05-20-2025 13:50-0400 Body height 147.[address] Liane Stephenson DO Work Phone: [facility] 05-20-2025 13:50-0400 Body mass index (BMI) [Ratio] 29.1 kg/m2 Dr. Liane Stephenson DO Work Phone: [facility] 05-20-2025 13:50-0400 Body weight 63.[address] Liane Stephenson DO Work Phone: [facility] 12-29-2024 10:51-0500 Body height 147.[address] Liane Stephenson DO Work Phone: [facility] 12-29-2024 10:51-0500 Body mass index (BMI) [Ratio] 28.2 kg/m2 Dr. Liane Stephenson DO Work Phone: [facility] 12-29-2024 10:51-0500 Body temperature 96.8 [degF] Dr. Liane Stephenson DO Work Phone: [facility] 12-29-2024 10:51-0500 Body weight 61.[address] Liane Stephenson DO Work Phone: [facility] 12-29-2024 10:51-0500 Diastolic blood pressure 68 mm[Hg] Dr. Liane Stephenson DO Work Phone: [facility] 12-29-2024 10:51-0500 Heart rate 64 /min Dr. Liane Stephenson DO Work Phone: [facility] 12-29-2024 10:51-0500 Respiratory rate 16 /min Dr. Liane Stephenson DO Work Phone: [facility] 12-29-2024 10:51-0500 SaO2% (BldA) [Mass fraction] 100 % Dr. Linae Stephenson DO Work Phone: [facility] 12-29-2024 10:51-0500 Systolic blood pressure 138 mm[Hg] Dr. Liane Stephenson DO Work Phone: [facility] 03-16-2024 19:50-0400 Body height 147.32 cm [facility] 03-16-2024 19:50-0400 Body mass index (BMI) [Ratio] 27.8 kg/m2 [facility] 03-16-2024 19:50-0400 Body temperature 97.8 [degF] [facility] 03-16-2024 19:50-0400 Body weight 60.49 kg [facility] 03-16-2024 19:50-0400 Diastolic blood pressure 65 mm[Hg] [facility] 03-16-2024 19:50-0400 Heart rate 67 /min [facility] 03-16-2024 19:50-0400 Respiratory rate 16 /min [facility] 03-16-2024 19:50-0400 SaO2% (BldA) [Mass fraction] 100 % [facility] 03-16-2024 19:50-0400 Systolic blood pressure 163 mm[Hg] [facility] 12-31-2023 10:17-0500 Body height 152.4 cm [facility] 12-31-2023 10:17-0500 Body mass index (BMI) [Ratio] 24.4 kg/m2 [facility] 12-31-2023 10:17-0500 Body temperature 97 [degF] [facility] 12-31-2023 10:17-0500 Body weight 56.69 kg [facility] 12-31-2023 10:17-0500 Diastolic blood pressure 50 mm[Hg] [facility] 12-31-2023 10:17-0500 Heart rate 66 /min [facility] 12-31-2023 10:17-0500 Respiratory rate 16 /min [facility] 12-31-2023 10:17-0500 SaO2% (BldA) [Mass fraction] 99 % [facility] 12-31-2023 10:17-0500 Systolic blood pressure 134 mm[Hg] [facility] 07-02-2023 12:11-0400 Body height 152.4 cm [facility] 07-02-2023 12:11-0400 Body mass index (BMI) [Ratio] 23.6 kg/m2 [facility] 07-02-2023 12:11-0400 Body temperature 97.2 [degF] [facility] 07-02-2023 12:11-0400 Body weight 54.88 kg [facility] 07-02-2023 12:11-0400 Diastolic blood pressure 77 mm[Hg] [facility] 07-02-2023 12:11-0400 Heart rate 64 /min [facility] 07-02-2023 12:11-0400 Respiratory rate 16 /min [facility] 07-02-2023 12:11-0400 SaO2% (BldA) [Mass fraction] 100 % [facility] 07-02-2023 12:11-0400 Systolic blood pressure 142 mm[Hg] [facility] 01-01-2023 22:47-0500 Diastolic blood pressure 61 mm[Hg] Dr. Liane Stephenson Work Phone: [facility] 01-01-2023 22:47-0500 Heart rate 73 /min Dr. Liane Stephenson Work Phone: [facility] 01-01-2023 22:47-0500 Respiratory rate 15 /min Dr. Liane Stephenson Work Phone: [facility] 01-01-2023 22:47-0500 SaO2% (BldA) [Mass fraction] 98 % Dr. Liane Stephenson Work Phone: [facility] 01-01-2023 22:47-0500 Systolic blood pressure 125 mm[Hg] Dr. Liane Stephenson Work Phone: [facility] 01-01-2023 18:21-0500 Body height 147.[address] Liane Stephenson Work Phone: [facility] 01-01-2023 18:21-0500 Body mass index (BMI) [Ratio] 29.9 kg/m2 Dr. Liane Stephenson Work Phone: [facility] 01-01-2023 18:21-0500 Body temperature 96.8 [degF] Dr. Liane Stephenson Work Phone: [facility] 01-01-2023 18:21-0500 Body weight 65.[address] Liane Stephenson Work Phone: [facility] 12-18-2022 10:27-0500 Body height 147.[address] Liane Stephenson Work Phone: [facility] 12-18-2022 10:27-0500 Body mass index (BMI) [Ratio] 28.8 kg/m2 Dr. Liane Stephenson Work Phone: [facility] 12-18-2022 10:27-0500 Body temperature 96.6 [degF] Dr. Liane Stephenson Work Phone: [facility] 12-18-2022 10:27-0500 Body weight 62.[address] Liane Stephenson Work Phone: [facility] 12-18-2022 10:27-0500 Diastolic blood pressure 82 mm[Hg] Dr. Liane Stephenson Work Phone: [facility] 12-18-2022 10:27-0500 Heart rate 65 /min Dr. Liane Stephenson Work Phone: [facility] 12-18-2022 10:27-0500 Respiratory rate 16 /min Dr. Liane Stephenson Work Phone: [facility] 12-18-2022 10:27-0500 SaO2% (BldA) [Mass fraction] 99 % Dr. Liane Stephenson Work Phone: [facility] 12-18-2022 10:27-0500 Systolic blood pressure 141 mm[Hg] Dr. Liane Stephenson Work Phone: [facility] 10-09-2022 08:05-0500 Body temperature 97.9 [degF] Dr. Liane Stephenson Work Phone: [facility] 10-09-2022 08:05-0500 Diastolic blood pressure 80 mm[Hg] Dr. Liane Stephenson Work Phone: [facility] 10-09-2022 08:05-0500 Heart rate 61 /min Dr. Liane Stephenson Work Phone: [facility] 10-09-2022 08:05-0500 Respiratory rate 18 /min Dr. Liane Stephenson Work Phone: [facility] 10-09-2022 08:05-0500 SaO2% (BldA) [Mass fraction] 100 % Dr. Liane Stephenson Work Phone: [facility] 10-09-2022 08:05-0500 Systolic blood pressure 155 mm[Hg] Dr. Liane Stephenson Work Phone: [facility] 10-09-2022 04:34-0500 Body weight 62.[address] Liane Stephenson Work Phone: [facility] 10-08-2022 10:21-0500 Body height 147.[address] Liane Stephenson Work Phone: [facility] Work Phone: 10-07-2022 19:14-0500 Body mass index (BMI) [Ratio] 29.3 kg/m2 Dr. Liane Stephenson Work Phone: [facility] 10-07-2022 17:51-0500 Body temperature 97.2 [degF] [facility] Work Phone: 10-07-2022 17:51-0500 Diastolic blood pressure 44 mm[Hg] [facility] Work Phone: 10-07-2022 17:51-0500 Heart rate 75 /min [facility] Work Phone: 10-07-2022 17:51-0500 Respiratory rate 18 /min [facility] Work Phone: 10-07-2022 17:51-0500 SaO2% (BldA) [Mass fraction] 98 % [facility] Work Phone: 10-07-2022 17:51-0500 Systolic blood pressure 128 mm[Hg] [facility] Work Phone: 10-07-2022 14:42-0500 Body height 147.32 cm [facility] Work Phone: 10-07-2022 14:42-0500 Body mass index (BMI) [Ratio] 29.5 kg/m2 [facility] Work Phone: 10-07-2022 14:42-0500 Body weight 63.95 kg [facility] Work Phone: 06-19-2022 10:30-0400 Body height 147.32 cm [facility] Work Phone: 06-19-2022 10:30-0400 Body temperature 96.8 [degF] [facility] Work Phone: 06-19-2022 10:30-0400 Diastolic blood pressure 76 mm[Hg] [facility] Work Phone: 06-19-2022 10:30-0400 Heart rate 63 /min [facility] Work Phone: 06-19-2022 10:30-0400 Respiratory rate 16 /min [facility] Work Phone: 06-19-2022 10:30-0400 SaO2% (BldA) [Mass fraction] 100 % [facility] Work Phone: 06-19-2022 10:30-0400 Systolic blood pressure 131 mm[Hg] [facility] Work Phone: 12-25-2021 09:48-0500 Body height 147.32 cm [facility] Work Phone: 12-25-2021 09:48-0500 Body mass index (BMI) [Ratio] 29.2 kg/m2 [facility] Work Phone: 12-25-2021 09:48-0500 Body temperature 97.6 [degF] [facility] Work Phone: 12-25-2021 09:48-0500 Body weight 63.5 kg [facility] Work Phone: 12-25-2021 09:48-0500 Diastolic blood pressure 90 mm[Hg] [facility] Work Phone: 12-25-2021 09:48-0500 Heart rate 78 /min [facility] Work Phone: 12-25-2021 09:48-0500 Respiratory rate 16 /min [facility] Work Phone: 12-25-2021 09:48-0500 SaO2% (BldA) [Mass fraction] 97 % [facility] Work Phone: 12-25-2021 09:48-0500 Systolic blood pressure 131 mm[Hg] [facility] Work Phone: Encounters Encounter Date Encounter Type Care Provider Facility Start: 05-22-2025 Non-patient / Non-visit Dr. Luis Dominguez MD -[facility] Start: [facility] Start: 05-21-2025 Non-patient / Non-visit Dr. Luis Dominguez MD -[facility] Start: 05-20-2025 ambulatory Ignacia Parsons Facility :[facility] Start: 05-20-2025 End: 05-22-2025 Evaluation and management of inpatient Dr. Ignacia Parsons MD -Progressive Care Unit Work Phone: Start: 04-10-2025 End: 04-10-[address] Liane Stephenson DO Work Phone: [facility] Work Phone: Start: 04-10-2025 End: 04-10-[address] Liane Stephenson DO -Laboratory [place] Work Phone: Start: 04-10-2025 End: 04-10-2025 ambulatory Liane Stephenson Facility:[facility] Start: 12-29-2024 End: 12-29-[address] Liane Stephenson DO -Medical Out Work Phone: Start: 12-29-2024 End: 12-29-2024 ambulatory Liane Stephenson Facility:[facility] Start: 06-30-2024 End: 06-30-2024 ambulatory Liane Stephenson Facility:[facility] Start: 06-19-2024 End: 06-19-2024 ambulatory Arash Cruz Facility:[facility] Start: 03-16-2024 End: 03-16-2024 Emergency department patient visit [facility]-Emergency Department Work Phone: Start: 12-31-2023 End: 12-31-2023 ambulatory [facility] Work Phone: Start: 12-31-2023 End: 12-31-2023 Patient encounter procedure [facility]-Medical Out Work Phone: Start: 12-08-2023 End: 12-08-2023 Patient encounter procedure [facility]-Arash Mckeon [facility] Start: 10-11-2023 End: 11-07-2023 ambulatory [facility] Work Phone: Start: 10-11-2023 End: 11-07-2023 Discharged Recurring [facility]-Nutritional Services Work Phone: Start: 10-11-2023 Registered Recurring [facility]-Physical Therapy Work Phone: Start: 09-07-2023 End: 09-07-2023 ambulatory [facility] Work Phone: Start: 09-07-2023 End: 09-07-2023 Patient encounter procedure [facility]-Radiology, [place] Work Phone: Start: 07-02-2023 End: 07-02-2023 ambulatory [facility] Work Phone: Start: 07-02-2023 End: 07-02-2023 Patient encounter procedure [facility]-Medical Out Work Phone: Start: 05-07-2023 End: 05-07-2023 ambulatory [facility] Work Phone: Start: 05-07-2023 End: 05-07-2023 Patient encounter procedure [facility]-RAD [employer] Work Phone: Start: 03-30-2023 End: 03-30-2023 Patient encounter procedure [facility]-Radiology, [place] Work Phone: Start: 03-24-2023 End: 03-24-2023 [facility] Start: 02-08-2023 End: 02-08-2023 ambulatory [facility] Work Phone: Start: 02-08-2023 End: 02-08-2023 [facility] Start: 01-01-2023 End: 01-01-2023 Emergency department patient visit Dr. Liane Stephenson Work Phone: [facility]-Emergency Department Start: 12-18-2022 End: 12-18-[address] Liane Stephenson Work Phone: [facility] Work Phone: Start: 12-18-2022 End: 12-18-[address] Liane Stephenson Work Phone: [facility]-Medical Out Start: 10-14-2022 End: 10-14-[address] [facility] Stephen[facility] Start: 10-09-2022 Non-patient / Non-visit Dr. Radha Stephenson Work Phone: [facility] Start: 10-08-2022 Non-patient / Non-visit Dr. Radha Stephenson Work Phone: [facility] Start: 10-08-2022 Non-patient / Non-visit Dr. Radha Stephenson Work Phone: [facility] Start: 10-07-2022 Non-patient / Non-visit Dr. Radha Stephenson Work Phone: [facility] Start: 10-07-2022 End: 10-09-2022 Evaluation and management of inpatient [facility]-Medical Surgical 3 Start: 06-19-2022 End: 06-19-2022 Patient encounter procedure [facility]-Medical Out Start: 04-16-2022 End: 04-16-2022 Patient encounter procedure [facility] Start: 12-25-2021 End: 12-25-2021 Patient encounter procedure [facility]-Medical Out Procedures Date Procedure Procedure Detail Performing [...] Author Start: 05-22-2025 Patient discharge [facility] Start: 05-20-2025 Following clinical pathway protocol [facility] Start: 05-20-2025 Assessment of risk o f venous thromboembolism [facility] Start: 05-20-2025 Fall prevention [facility] Start: 05-20-2025 Incentive spirometry [facility] Start: 05-20-2025 Inhalation therapy procedure [facility] Start: 05-20-2025 Insertion of cathete r into peripheral vein [facility] Start: 05-20-2025 Introduction of urinary catheter [facility] Start: 05-20-2025 Measuring intake and output [facility] Start: 05-20-2025 Providing care according to standard [facility] Start: 05-20-2025 Provision of activity privileges [facility] Start: 05-20-2025 Referral to telegraph office route aide [facility] Start: 05-20-2025 Referral to service [facility] Start: 05-20-2025 Tobacco use cessation education [facility] Start: 05-20-[address] [facility] Start: 05-20-2025 Electrocardiographic procedure [facility] Start: 05-20-2025 Hospital admission, emergency, from emergency room, medical nature [facility] Start: 05-20-2025 Electrocardiographic procedure [facility] Start: 05-20-2025 Verification routine [facility] Start: 05-20-2025 Admission procedure [facility] Start: 05-20-[address] [facility] Start: 03-16-[address] [facility] Start: 10-09-2022 Patient discharge [facility] Start: 10-07-2022 Application of inter mittent pneumatic compression device [facility] Start: 10-07-2022 Assessment of risk o f venous thromboembolism [facility] Start: 10-07-2022 Fall prevention [facility] Start: 10-07-2022 Incentive spirometry [facility] Start: 10-07-2022 Inhalation therapy procedure [facility] Start: 10-07-2022 Insertion of cathete r into peripheral vein [facility] Start: 10-07-2022 Introduction of urinary catheter [facility] Start: 10-07-2022 Measuring intake and output [facility] Start: 10-07-2022 Oxygen therapy [facility] Start: 10-07-2022 Providing care according to standard [facility] Start: 10-07-2022 Provision of activity privileges [facility] Start: 10-07-2022 Referral to gastroenterology service [facility] Start: 10-07-2022 End: 10-07-2022 [facility] Start: 10-07-2022 Following clinical pathway protocol [facility] Start: 10-07-2022 Admission procedure [facility] Alanine aminotransfe rase [Enzymatic activity/volume] in Serum or Plasma [facility] Work Phone: Albumin [Mass/volume ] in Serum or Plasma [facility] Work Phone: Alkaline phosphatase [Enzymatic activity/volume] in Serum or Plasma [facility] Work Phone: Anion gap measurement [facility] Work Phone: Aspartate aminotrans ferase [Enzymatic activity/volume] in Serum or Plasma [facility] Work Phone: Bilirubin, total measurement [facility] Work Phone: BUN/Creatinine ratio [facility] Work Phone: Calcium [Mass/volume ] in Serum or Plasma [facility] Work Phone: Carbon dioxide, tota l [Moles/volume] in Serum or Plasma [facility] Work Phone: Chloride [Moles/volu me] in Serum or Plasma [facility] Work Phone: Cholesterol [Mass/vo lume] in Serum or Plasma [facility] Work Phone: Cholesterol in HDL [ Mass/volume] in Serum or Plasma [facility] Work Phone: Cholesterol in LDL [ Mass/volume] in Serum or Plasma [facility] Work Phone: Creatinine [Moles/vo lume] in Serum or Plasma [facility] Work Phone: Glucose [Mass/volume ] in Serum or Plasma [facility] Work Phone: Hematocrit [Volume F raction] of Blood [facility] Work Phone: Hemoglobin [Mass/volume] in Blood [facility] Work Phone: Hepatitis A virus Ig M Ab [Presence] in Serum [facility] Work Phone: Hepatitis B core ant ibody measurement, IgM type [facility] Work Phone: Hepatitis B surface antigen measurement [facility] Work Phone: Hepatitis C antibody measurement [facility] Work Phone: Leukocytes [#/volume] in Blood [facility] Work Phone: Lipase measurement [facility] Work Phone: Mean corpuscular hem oglobin concentration determination [facility] Work Phone: Mean corpuscular hem oglobin determination [facility] Work Phone: Measurement of renal function [facility] Work Phone: Neutrophil count [facility] Work Phone: Neutrophil percent d ifferential count [facility] Work Phone: Patient Education [facility] Work Phone: Patient referral [facility] Work Phone: Platelets [#/volume] in Blood [facility] Work Phone: Potassium [Moles/vol ume] in Serum or Plasma [facility] Work Phone: Red blood cell count [facility] Work Phone: Red cell distributio n width determination [facility] Work Phone: Respiratory pathogen s DNA and RNA 12b panel - Unspecified specimen by ARLEN with probe detection [facility] Work Phone: Sodium [Moles/volume ] in Serum or Plasma [facility] Work Phone: Total protein measurement [facility] Work Phone: Triglycerides measurement [facility] Work Phone: Troponin T.cardiac [ Mass/volume] in Serum or Plasma by High sensitivity method [facility] Urea nitrogen [Mass/ volume] in Serum or Plasma [facility] Work Phone: VLDL cholesterol measurement [facility] Work Phone: Immunizations Immunization Date Immunization Notes Care Provider Fa cility 03-16-2024 tetanus toxoid, redu solo diphtheria toxoid, and acellular pertussis vaccine, adsorbed [facility] 01-10-2021 Covid (Moderna) [facility] Payers Date Payer Category Payer Private Health Insurance [id number] 2023 Self-pay [id number] 2014 [id number] Medicare [id number] Self-pay SELF PAY BY [employer] [id number] Unknown [id number] 62 Unknown [id number] 62 Unknown [id number] 62 Unknown [id number] 62 Unknown [id number] 62 Unknown [id number] 62 Unknown [id number] 62 Unknown [id number] 62 Unknown [id number] 62 Unknown [id number] 62 Unknown [id number] 62 Social History Date Type Detail Facility Start: 06-01-2021 End: 03-16-2024 Tobacco smoking status NHIS Unknown if ever smoked [facility] Start: 04-15-[address] [facility] Start: 04-15-[address] [facility] Start: 06-01-2021 Non-smoker [facility] Start: 1940 Sex Assigned At Female [facility] Start: 03-16-2024 End: 05-20-2025 Tobacco smoking status NHIS Never smoked tobacco (finding) [facility] Goals Date Patient Goal Desired Activity /State Functional Status Date Assessment Result Facility 05-22-2025 Functional status Ambulates [facility] Work Phone: 10-09-2022 Functional status Ambulates [facility] Work Phone: Mental Status Date Assessment Result Facility 05-22-2025 Cognitive function Voice/Name [facility] Work Phone: 05-20-2025 Cognitive function Awake;Alert;A ppropriate;Fol lows Commands [facility] Work Phone: 12-29-2024 Cognitive function Voice/Name [facility] Work Phone: 07-02-2023 Cognitive function Voice/Name [facility] Work Phone: 12-18-2022 Cognitive function Voice/Name [facility] Work Phone: 10-09-2022 Cognitive function Voice/Name [facility] Work Phone: 06-19-2022 Cognitive function Awake;Alert;A ppropriate;Fol lows Commands [facility] Work Phone: 12-25-2021 Cognitive function Awake;Alert;A ppropriate;Fol lows Commands [facility] Work Phone: Clinical Notes 05-29-2021 to 05-22-2025 Note Date & Type Note Facility 05-22-2025 Discharge summary Note Date/Time May 22, 2025 9:27am [facility] Medical Records Department [address] [place] [address] Discharge Summary 05/22/2525 MR#: [id number] Acct: [id number] Name: EUGENIE MATA Rep #:[id number] : 1940 84 From: Miller Cross MD PCP: Dr. Liane Stephenson DO Status:[facility] Providers Date of Admission: 05/20/25 Primary Care Physician: Dr. Liane Stephenson DO Consultations 05/20/25 19:55 Consult: Cardiology Routine Consulting Provider: [facility] Reason for Consult: Chest Pain, NSTEMI EMERGENT [...] % (Auto) 61.5, Lymph % (Auto) 25.2, Alexandria % (Auto) 9.1, Eos % (Auto) 3.2, [...] Diego at discharge?: Yes Done w/ Acute AR measure.: Yes Documented LVEF (%): 65 Discharge Plan Admission Admit Date/Time: 05/20/25 17:47 Attending Provider: Miller Cross Primary Care Provider: Liane Stephenson Consulting Providers: Ignacia Parsons; Sharon Dugan; Ade Ryder; Pola Dumont; Tavo Wilson; Caleb Guardado; Martinez Hoang; Hansel Vasques; Alcira Thakur; Luis Dominguez; Chica Peters; Martin Arias; Bryan Syed; Adelina Shahid [employer]; Brigida Dixon PA; Preston Leiva Discharge Orders/Prescriptions [...] Self Care Charges/Coding Visit Charges Inpatient E&M: 88964 Disch Hosp >30min 05/22/25 5793 <Electronically signed by Miller Cross MD> Cosigner Signature (if applicable): CC: Dr. Miller Cross MD; Dr. Liane Stephenson DO~ Signed [facility] Work Phone: 1(521) 446-124607-15-2025 Progress note Author Miller Cross [facility] Note Date/Time May 22, 2025 9:18 am [facility] Medical Records Department [address] [place] [address] Progress Note - Hospitalist 05/22/25 0719 MR#: [id number] Acct: [id number] Name: EUGENIE MATA Rep #:[id number] : 1940 84 From: Miller Cross MD PCP: Dr. Liane Stephenson DO Status:ADM IN Location: [place] [address] Reason for Visit Chief Complaint: Chest pain [...] ~ Signed [facility] Work Phone: [phone]) 334-255407-15-2025 Progress note Author Luis Dominguez [facility] Note Date/Time May 22, 2025 7:59 am [facility] Medical Records Department [address] [place] [address] Progress Note - Cardiology 05/22/25753 MR#: [id number] Acct: [id number] Name: EUGENIE MATA Rep #:[id number] : 1940 84 From: Luis Dominguez MD PCP: Dr. Liane Stephenson, DO Status:ADM IN Location: [place] [address] Subjective Subjective Patient evaluated seated in a [...] % (Auto) 61.5, Lymph % (Auto) 25.2, Alexandria % (Auto) 9.1, Eos % (Auto) 3.2, [...] % (Auto) 61.5, Lymph % (Auto) 25.2, Alexandria % (Auto) 9.1, Eos % (Auto) 3.2, [...] and asneeded. Charges/Coding Visit Charges Inpatient E&M: 11046 Subs Hosp L2 05/22/25 0759 <Electronically signed by Luis Dominguez MD> Cosigner Signature (if applicable): CC: ~ Signed [facility] Work Phone: [phone] Discharge summary [facility] Medical Records Department [address] [place] [address] Discharge Summary 05/22/25 0925 MR#: [id number] Acct: [id number] Name: EUGENIE MATA Rep #:[id number] : 1940 84 From: Miller Cross MD PCP: Dr. Liane Stephenson, Status:ADM IN Location: [place] [address] Providers Date of Admission: 05/20/25 Primary Care Physician: Dr. Liane Stephenson DO Consultations 05/20/25 19:55 Consult: Cardiology Routine Consulting Provider: [facility] Reason for Consult: Chest Pain, NSTEMI EMERGENT [...] % (Auto) 61.5, Lymph % (Auto) 25.2, Alexandria % (Auto) 9.1, Eos % (Auto) 3.2, [...] Diego at discharge?: Yes Done w/ Acute AR measure.: Yes Documented LVEF (%): 65 Discharge Plan Admission Admit Date/Time: 05/20/25 17:47 Attending Provider: Miller Cross Primary Care Provider: Liane Stephenson Consulting Providers: Ignacia Parsons; Shaorn Dugan; Ade Ryder; Pola Dumont; Tavo Wilson; Caleb Guardado; Martinez Hoang; Hansel Vasques; Alcira Thakur; Luis Dominguez; Chica Peters; Martin Arias; Bryan Syed; Adelina Shahid [employer]; Brigida Dixon PA; Preston Leiva Discharge Orders/Prescriptions [...] Self Care Charges/Coding Visit Charges Inpatient E&M: 20483 Disch Hosp >30min 05/22/25926 Cosigner Signature (if applicable): CC: Dr. Miller Cross MD; Dr. Liane Stephenson DO~ Signed [facility]07-15-2025 [facility] Medical Records Department [address] [place] [address] Discharge Summary 05/22/25924 MR#: [id number] Acct: [id number] Name: EUGENIE MATA Rep #: [id number] : 1940 84 From: Miller Cross MD PCP: Dr. Liane Stephenson DO Status:ADM IN Location: [place] [address] Providers Date of Admission: 05/20/25 Primary Care [...] % (Auto) 61.5, Lymph % (Auto) 25.2, Alexandria % (Auto) 9.1, Eos % (Auto) 3.2, [...] content not included)...[facility]07-15-2025 Progress note [facility] Medical Records Department [address] [place] [address] Progress Note - Hospitalist 05/22/25 0719 MR#: [id number] Acct: [id number] Name: EUGENIE MATA Rep #:[id number] : 1940 84 From: Miller Cross MD PCP: Dr. Liane Stephenson, DO Status:ADM IN Location: [place] [address] Reason for Visit Chief Complaint: Chest pain [...] ~ Signed [facility]07-15-2025 Progress note [facility] Medical Records Department [address] [place] [address] Progress Note - Cardiology 05/22/25 0754 MR#: [id number] Acct: [id number] Name: EUEGNIE MATA Rep #:[id number] : 1940 84 From: Luis Dominguez MD PCP: Dr. Liane Stephenson, DO Status:ADM IN Location: [place] [address] Subjective Subjective Patient evaluated seated in a [...] % (Auto) 61.5, Lymph % (Auto) 25.2, Alexandria % (Auto) 9.1, Eos % (Auto) 3.2, [...] MCV 92.0, MCH 30.9, MCHC 33.6, Plt [id number], MPV 10.3, Immature Gran % (Auto) 0.400, Neut % (Auto) 61.5, Lymph % (Auto) 25.2, Alexandria % (Auto)9.1, Eos % (Auto) 3.2, Baso [...] needed. 3. Patient should follow-up with the [facility] in 4 to 6 weeks and asneeded. Charges/Coding Visit Charges Inpatient E&M: 04304 Subs Hosp L2 05/22/25 0759 Cosigner Signature (if applicable): CC: ~ Signed [facility]07-14-2025 Consult note Author Luis Dominguez [facility] Note Date/Time May 21, 2025 10:5 5am [facility] Medical Records Department [address] [place] [address] Consultation - Cardiology 05/21/25 1036 MR#: [id number] Acct: [id number] Name: EUGENIE MATA Rep #:[id number] : 1940 84 From: Luis Dominguez MD PCP: Dr. Liane Stephenson, DO Status:ADM IN Location: [place] [address] Assessment & Plan Assessment/Plan (1) NSTEMI, initial [...] all in agreement with her dementia issues. [facility] Medical History (Updated 05/21/25 @ 10:48 by [...] 13% Risk Charges/Coding Visit Charges Inpatient E&M: 60856 Init Hosp L2 Objective Data Vital Signs: [...] RDW Std Deviation 43.8, RDW Coeff of Nasley 12.8, Plt Count 262, MPV 10.4, Immature Gran % (Auto) 0.300, Neut % (Auto) 60.8, Lymph % (Auto) 28.8, Alexandria % (Auto) 7.2, Eos % (Auto) 2.4, [...] % (Auto) 50.4, Lymph % (Auto) 35.9, Alexandria % (Auto) 8.6, Eos % (Auto) 3.8, [...] Neut % (Auto) 60.8,Lymph % (Auto) 28.8, Alexandria % (Auto) 7.2, Eos % (Auto) 2.4, [...] % (Auto) 50.4, Lymph % (Auto) 35.9, Alexandria % (Auto) 8.6, Eos % (Auto) 3.8, [...] 14:58 IMPRESSION: No focal consolidations. Reading Location: [facility] Shoulder X-Ray 05/20/25 15:59 IMPRESSION: No acute osseous abnormality of the left shoulder. 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 Reading Location: [facility] 05/21/25 1055 <Electronically signed by Luis Dominguez MD> Cosigner Signature (if applicable): CC: Dr. Liane Stephenson, DO~ Signed [facility] Work Phone: [phone]) 688-595807-14-2025 Progress note Author Miller Cross [facility] Note Date/Time May 21, 2025 10:0 3am [facility] Medical Records Department [address] [place] [address] Progress Note - Hospitalist 05/21/25 0956 MR#: [id number] Acct: [id number] Name: EUGENIE MATA Rep #:[id number] : 1940 84 From: Miller Cross MD PCP: Dr. Liane Stephenson, DO Status:ADM IN Location: [place] [address] Reason for Visit Chief Complaint: Chest pain [...] % (Auto) 60.8, Lymph % (Auto) 28.8, Alexandria % (Auto) 7.2, Eos % (Auto) 2.4, [...] % (Auto) 50.4, Lymph % (Auto) 35.9, Alexandria % (Auto) 8.6, Eos % (Auto) 3.8, [...] 14:58 IMPRESSION: No focal consolidations. Reading Location: [facility] Shoulder X-Ray 05/20/25 15:59 IMPRESSION: No acute osseous abnormality of the left shoulder. 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 Reading Location: [facility] Physical Exam Narrative GENERAL: cooperative [...] on heparin Charges/Coding Visit Charges Inpatient E&M: 14791 Subs Hosp L2 05/21/25 1003 <Electronically signed by Miller Cross MD> Cosigner Signature (if applicable): CC: ~ Signed [facility] Work Phone: [phone]) [phone] Consult note [facility] Medical Records Department [address] [place] [address] Consultation - Cardiology 05/21/25 1036 MR#: [id number] Acct: [id number] Name: EUGENIE MATA Rep #:[id number] : 1940 84 From: Luis Dominguez MD PCP: Dr. Liane Stephenson, DO Status:[facility]M [facility] Assessment & Plan Assessment/Plan (1) [...] all in agreement with her dementia issues. [facility] Medical History (Updated 05/21/25 @ 10:48 by [...] 13% Risk Charges/Coding Visit Charges Inpatient E&M: 44425 Init Hosp L2 Objective Data Vital Signs: [...] % (Auto) 60.8, Lymph % (Auto) 28.8, Alexandria % (Auto) 7.2, Eos % (Auto) 2.4, [...] % (Auto) 50.4, Lymph % (Auto) 35.9, Alexandria % (Auto) 8.6, Eos % (Auto) 3.8, [...] Neut % (Auto) 60.8,Lymph % (Auto) 28.8, Alexandria % (Auto) 7.2,Eos % (Auto) 2.4, Baso [...] % (Auto) 50.4, Lymph % (Auto) 35.9, Alexandria % (Auto) 8.6, Eos % (Auto) 3.8, [...] 14:58 IMPRESSION: No focal consolidations. Reading Location: [id number] Shoulder X-Ray 05/20/25 15:59 IMPRESSION: No acute osseous abnormality of the left shoulder. 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 Reading Location: [id number] 05/21/25 1055 Cosigner Signature (if applicable): CC: Dr. Liane Stephenson, DO~ Signed [facility]07-14-2025 Progress note [facility] Medical Records Department [address] [place] [address] Progress Note - Hospitalist 05/21/25 0956 MR#: [id number] Acct: [id number] Name: EUGENIE MATA Rep #:[id number] : 1940 84 From: Miller Cross MD PCP: Dr. Liane Stephenson DO Status:ADM IN Location: [place] [address] Reason for Visit Chief Complaint: Chest pain [...] % (Auto) 60.8, Lymph % (Auto) 28.8, Alexandria % (Auto) 7.2, Eos % (Auto) 2.4, [...] % (Auto) 50.4, Lymph % (Auto) 35.9, Alexandria % (Auto) 8.6, Eos % (Auto) 3.8, [...] 14:58 IMPRESSION: No focal consolidations. Reading Location: [id number] Shoulder X-Ray 05/20/25 15:59 IMPRESSION: No acute osseous abnormality of the left shoulder. 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 Reading Location: [facility] Physical Exam Narrative GENERAL: cooperative [...] on heparin Charges/Coding Visit Charges Inpatient E&M: 42804 Subs Hosp L2 05/21/25 1003 Cosigner Signature (if applicable): CC: ~ Signed [facility]07-13-2025 Discharge summary Author Devin Piña [facility] Note Date/Time May 20, 2025 6:28 pm [facility] Medical Records Department [address] [place] [address] Emergency Department Summary 05/20/25 MR#: [id number] Acct: [id number] Name: EUGENIE MATA Rep #:[id number] : 1940 84 From: Devin Watkins PCP: Dr. Liane Stephenson, DO Status:ADM IN Location: [address] History of Present Illness Chief Complaint: [facility] Medical History (Updated 05/20/25 @ 17:49 by [...] Pulse Ox 100 100 Oxygen Delivery Method [facility] Narrative Medical decision making narrative: HISTORY OF [...] MEDICAL DECISION MAKING: Chief Complaint: please see [facility] External records reviewed: Reviewed prior cardiovascular testing: Reviewed echocardiogram from 2019 which showed ejection fraction 65% Factors affecting care: As per [facility] Social determinants of health: Denies illicit [...] to PCU This note was generated with [employer] dictation software. It may contain incorrect words, [...] % (Auto) 60.8 Lymph % (Auto) 28.8 Alexandria % (Auto) 7.2 Eos % (Auto) 2.4 [...] 14:58 IMPRESSION: No focal consolidations. Reading Location: [id number] Shoulder X-Ray 05/20/25 15:59 IMPRESSION: No acute osseous abnormality of the left shoulder. 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 Reading Location: [facility] Discharge Plan Triage Chief Complaint: Chest Pain ED Provider: Devin Piña Dx/Rx/DC Orders Primary Care Provider: Liane Stephenson What to do if you have Problems For any increased pain, shortness of breath, bleeding, nausea or vomiting, chest pain, or any unexpected problems, contact your Primary Care Provider. Call [facility] ([phone]) or report to the closest Emergency Room. Call 911 if necessary. 05/20/25 1828 <Electronically signed by Devin Piña DO> Cosigner Signature (if applicable): CC: Dr. Liane Stephenson DO ~ Signed [facility] Work Phone: 1(593) 929-992607-13-2025 History and physical note Author Ignacia Parsons [facility] Note Date/Time May 20, 2025 6:28 pm [facility] Medical Records Department [address] [place] [address] H&P Exam - Hospitalist 05/20/25 1726 MR#: [id number] Acct: [id number] Name: EUGENIE MATA Rep #:[id number] : 1940 84 From: Ignacia Parsons MD PCP: Dr. Liane Stephenson DO Status:ADM IN Location: [place] [address] HPI - General General Date of Admission: 05/20/25 Date of Service: 05/20/25 Chief Complaint: Chest pain HPI Narrative The patient is an 84 y/o F w/ PMHx: Gout, Dementia unclear type with unclear behavioral disturbance history, Hx prior retinal artery narrowing, Overweight, Macular degeneration, CKD stage III unclear subtype per GFR trending, HTN, HLD who presents to the [facility] ED on 05/20/2025 with history of onset [...] heparin bolus and maintained on heparin drip. [facility] Medical History Dementia Gout Overweight Chronic kidney [...] % (Auto) 60.8, Lymph % (Auto) 28.8, Alexandria % (Auto) 7.2, Eos % (Auto) 2.4, [...] 14:58 IMPRESSION: No focal consolidations. Reading Location: [id number] Shoulder X-Ray 05/20/25 15:59 IMPRESSION: No acute osseous abnormality of the left shoulder. 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 Reading Location: [id number] Assessment & Plan Assessment/Plan (1) NSTEMI, initial episode of care: PLAN: Plan The patient is an 84 y/o F w/ PMHx: Gout, Dementia unclear type with unclear behavioral disturbance history, Hx prior retinal artery narrowing, Overweight, Macular degeneration, CKD stage III unclear subtype per GFR trending, HTN, HLD who presents to the [facility] ED on 05/20/2025 with history of onset [...] Code status. Charges/Coding Visit Charges Inpatient E&M: 35873 Init Hosp L3 05/20/25 1828 <Electronically signed by Ignacia Parsons MD> Cosigner Signature (if applicable): CC: Dr. Ignacia Parsons MD; Dr. Liane Stephenson DO~ Signed [facility] Work Phone: 1(284) [phone] Evaluation note* Diagnosis Onset Date Resolution Status Admit Date Dementia acute May 20 5:47pm HLD (hyperlipidemia) acute May 20, 2025 5:47pm NSTEMI, initial episode of care acut e May 20, 2025 5:47pm HTN (hypertension) chronic May 082024 5:47pm [facility] Work Phone: 1([phone]) 478-978607-13-2025 History and physical note Author [facility] Note Date/Time May 20, 2025 6:28 pm [facility] Medical Records Department [address] [place] [address] H&P Exam - Hospitalist 05/20/25 1726 MR#: [id number] Acct: [id number] Name: EUGENIE MATA Rep #:[id number] : 1940 84 From: Ignacia Parsons MD PCP: Dr. Liane Stephenson DO Status:ADM IN Location: [place] [address] HPI - General General Date of Admission: 05/20/25 Date of Service: 05/20/25 Chief Complaint: Chest pain HPI Narrative The patient is an 84 y/o F w/ PMHx: Gout, Dementia unclear type with unclear behavioral disturbance history, Hx prior retinal artery narrowing, Overweight, Macular degeneration, CKD stage III unclear subtype per GFR trending, HTN, HLD who presents to the [facility] ED on 05/20/2025 with history of onset [...] heparin bolus and maintained on heparin drip. [facility] Medical History Dementia Gout Overweight Chronic kidney [...] % (Auto) 60.8, Lymph % (Auto) 28.8, Alexandria % (Auto) 7.2, Eos % (Auto) 2.4, [...] 14:58 IMPRESSION: No focal consolidations. Reading Location: [id number] Shoulder X-Ray 05/20/25 15:59 IMPRESSION: No acute osseous abnormality of the left shoulder. 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 Reading Location: [id number] Assessment & Plan Assessment/Plan (1) NSTEMI, initial episode of care: PLAN: Plan The patient is an 84 y/o F w/ PMHx: Gout, Dementia unclear type with unclear behavioral disturbance history, Hx prior retinal artery narrowing, Overweight, Macular degeneration, CKD stage III unclear subtype per GFR trending, HTN, HLD who presents to the [facility] ED on 05/20/2025 with history of onset [...] Code status. Charges/Coding Visit Charges Inpatient E&M: 09563 Init Hosp L3 05/20/25 8074 <Electronically signed by Ignacia Parsons MD> Cosigner Signature (if applicable): CC: Dr. Ignacia Parsons MD; Dr. Liane Stephenson DO~ Signed [facility] Work Phone: 1(525) [phone] Discharge summary [facility] Medical Records Department [address] [place] [address] Emergency Department Summary 05/20/25 MR#: [id number] Acct: [id number] Name: EUGENIE MATA Rep #:[id number] : 1940 84 From: Devin Watkins PCP: Dr. Liane Stephenson DO Status:ADM IN Location: [address] History of Present Illness Chief Complaint: [...] to PCU This note was generated with [employer] dictation software. It may contain incorrect words, [...] % (Auto) 60.8 Lymph % (Auto) 28.8 [place] % (Auto) 7.2 Eos % (Auto) 2.4 [...] 14:58 IMPRESSION: No focal consolidations. Reading Location: [facility] Shoulder X-Ray 05/20/25 15:59 IMPRESSION: No acute osseous abnormality of the left shoulder. 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 Reading Location: [facility] Discharge Plan Triage Chief Complaint: Chest Pain ED Provider: Devin Piña Dx/Rx/DC Orders Primary Care Provider: Liane Stephenson What to do if you have Problems For any increased pain, shortness of breath, bleeding, nausea or vomiting, chest pain, or any unexpected problems, contact your Primary Care Provider. Call [facility] ([phone]) or report to the closest Emergency Room. Call 911 if necessary. 05/20/25 8605 Cosigner Signature (if applicable): CC: Dr. Liane Stephenson, ~ Signed [facility]07-13-2025 History and physical note [facility] Medical Records Department [address] [facility] [place] [address] H&P Exam - Hospitalist 05/20/25 1726 MR#: [id number] Acct: [id number] Name: EUGENIE MATA Rep #:[id number] : 1940 84 From: Ignacia Parsons MD PCP: Dr. Liane Stephenson, DO Status:ADM IN Location: [place] [address] HPI - General General Date of Admission: 05/20/25 Date of Service: 05/20/25 Chief Complaint: Chest pain HPI Narrative The patient is an 84 y/o F w/ PMHx: Gout, Dementia unclear type with unclear behavioral disturbancehistory, Hx prior retinal artery narrowing, Overweight, Macular degeneration, CKD stage III unclearsubtype per GFR trending, HTN, HLD who presents to the [facility] ED on 05/20/2025 with history of onset [...] heparin bolus and maintained on heparin drip. [facility] Medical History Dementia Gout Overweight Chronic kidney [...] % (Auto) 60.8, Lymph % (Auto) 28.8, Alexandria % (Auto) 7.2, Eos % (Auto) 2.4, [...] 14:58 IMPRESSION: No focal consolidations. Reading Location: [facility] Shoulder X-Ray 05/20/25 15:59 IMPRESSION: No acute osseous abnormality of the left shoulder. 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 Reading Location: [id number] Assessment & Plan Assessment/Plan (1) NSTEMI, initial episode of care: PLAN: Plan The patient is an 84 y/o F w/ PMHx: Gout, Dementia unclear type with unclear behavioral disturbancehistory, Hx prior retinal artery narrowing, Overweight, Macular degeneration, CKD stage III unclearsubtype per GFR trending, HTN, HLD who presents to the [facility] ED on 05/20/2025 with history of onset [...] FullCode status. Charges/Coding Visit Charges Inpatient E&M: 59719 Init Hosp L3 05/20/25 6940 Cosigner Signature (if applicable): CC: Dr. Ignacia Parsons MD; Dr. Liane Stephenson, DO~ Signed [facility]07-13-2025 Radiology Diagnostic study note [facility] Imaging Services [address] [place] [address] Shoulder min 2 Views MR#: [id number] Acct: [id number] Name: EUGENIE MATA Rep #: [id number] : 1940 F 84 From: Liat Louis MD PCP: Dr. Liane Stephenson DO Status: REG ER Study:Shoulder min 2 Views Date of Exam: 05/20/25 Exam# [id number] Ordering Dr: Luisito Piña DO PROCEDURE: SHOULDER MIN 2 VIEWS 05/20/2025 REASON FOR EXAM: PAIN TECHNIQUE: SHOULDER MIN 2 VIEWS COMPARISON: None FINDINGS: No displaced fracture or traumatic malalignment. Ifmf-tv-zgdqrbvv joint space narrowing and osteophyte formation at the acromioclavicular joint, mild at the glenohumeral joint. Bone mineral density is subjectively normal. Soft tissues are unremarkable. Spinal stimulator leads partially imaged. Visualized thorax is clear. RAD/Shoulder min 2 Views IMPRESSION: No acute osseous abnormality of the left shoulder. 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 Reading Location: [id number] CC: Dr. Liane Stephenson DO; Dr. Devin Piña DO ~ Garage Mechanic: Signed [facility]-13-2025 Radiology Diagnostic study note [facility] Imaging Services [address] [place], [place] [address] Chest 1 View (Portable) MR#: [id number] Acct: [id number] Name: EUGENIE MATA Rep #: [id number] : 1940 F 84 From: Elizabeth Koehler MD PCP: Dr. Liane Stephenson DO Status: REG ER Study:Chest 1 View (Portable) Date of Exam: 05/20/25 Exam# [id number] Ordering Dr: Luisito Piña DO PROCEDURE: CHEST 1 VIEW (PORTABLE) 05/20/2025 REASON FOR EXAM: CHEST PAIN TECHNIQUE: Frontal view of the chest. COMPARISON: 10/07/2022 FINDINGS: No focal consolidation. No pleural effusion or pneumothorax. Cardiac silhouette is within normal limits. Calcified aortic arch. Neurostimulator device noted. RAD/Chest 1 View (Portable) IMPRESSION: No focal consolidations. Reading Location: [facility] CC: Dr. Liane Stephenson DO; Dr. Devin Piña DO ~ Garage Mechanic: Signed [facility]07-13-2025 Discharge summary Author Devin Piña [facility] Note Date/Time May 20, 2025 6:28 pm [facility] Medical Records Department [address] [place] [address] Emergency Department Summary 05/20/25 MR#: [id number] Acct: [id number] Name: EUGENIE MATA Rep #:[id number] : 1940 84 From: Devin Watkins PCP: Dr. Liane Stephenson DO Status:ADM IN Location: [address] History of Present Illness Chief Complaint: Chest Pain PFSH [facility] Medical History (Updated 05/20/25 @ 17:49 by [...] MEDICAL DECISION MAKING: Chief Complaint: please see [facility] External records reviewed: Reviewed prior cardiovascular testing: Reviewed echocardiogram from 2019 which showed ejection fraction 65% Factors affecting care: As per [facility] Social determinants of health: Denies illicit [...] to PCU This note was generated with [employer] dictation software. It may contain incorrect words, [...] % (Auto) 60.8 Lymph % (Auto) 28.8 [place] % (Auto) 7.2 Eos % (Auto) 2.4 [...] 14:58 IMPRESSION: No focal consolidations. Reading Location: [facility] Shoulder X-Ray 05/20/25 15:59 IMPRESSION: No acute osseous abnormality of the left shoulder. 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 Reading Location: [facility] Discharge Plan Triage Chief Complaint: Chest Pain ED Provider: Devin Piña Dx/Rx/DC Orders Primary Care Provider: Liane Stephenson What to do if you have Problems For any increased pain, shortness of breath, bleeding, nausea or vomiting, chest pain, or any unexpected problems, contact your Primary Care Provider. Call [facility] ([phone]) or report to the closest Emergency Room. Call 911 if necessary. 05/20/251827 <Electronically signed by Devin Piña DO> Cosigner Signature (if applicable): CC: Dr. Liane Stephenson DO ~ Signed [facility] Work Phone: [phone]) 173-681105-09-2024 Discharge summary Author Gaurav Parker [facility] March 16, 2024 8:45pm Note Date/Time March 16, 2024 8:45pm [facility] Medical Records Department [address] [place] [address] Emergency Department Summary 03/16/24 MR#: [id number] Acct: [id number] Name: EUGENIE MATA Rep #:[id number] : 1940 83 From: Gaurav Parker DO [...] your Primary Care Provider. Call [facility] ([phone]) or report to the closest Emergency Room. Call 911 if necessary. 03/16/242044 <Electronically signed by Gaurav Parker DO> Cosigner Signature (if applicable): CC: Dr. Liane Stephenson DO ~ Signed [facility] Work Phone: 1(119) 909-993108-24-2021 NoteHNO ID: [id number] Author: Mindy Nascimento APRN.DINKEY [employer]ESS OPERATOR Service: ? Author Type: Nurse Practitioner Type: [...] 3. Rectum, polypectomy (C) - Hyperplastic polyp. [facility]/ 06/08/2016 COMMENT 2. (B). Additional [...] Adenomatous polyp of asce (more content not included)...[facility]07-22-2021 NoteHNO ID: [id number] Author: Gracy Aguilar RN Service: ? Author Type: Registered Nurse Type: Nursing Progress Note Filed: 05/29/2021 8:40 AM Note Text: Patient sitting up in bed tolerating snack and drink without problems. Gracy Aguilar RNSt. Anthony'S HospitalEvaluation noteNo assessment information availableWZanesville City Hospital Work Phone: Evaluation note* Diagnosis Onset Date Resolution Status Acute pancreatitis acute Hepatitis acute Nausea & vomiting acute Transaminitis acute [facility] Work Phone: Evaluation note* Diagnosis Onset Date Resolution Status Acute pancreatitis resolved Hepatitis resolved Nausea & vomiting resolved Transaminitis resolved [facility] Work Phone: Evaluation note* Diagnosis Onset Date Resolution Status Admit Date NSTEMI, initial episode of care acut e May 20, 2025 5:47pm [facility] Work Phone: Reason for referral (narrative)No reason for referral information availableWZanesville City Hospital Work Phone: Summary Purpose Family History No Family History Records Found Relationship Condition Age at Onset Recorded Date/T rihsi father Myocardial infarction Unknown brother Myocardial infarction Unknown Cerebrovascular accident (CVA) Unknown Relationship Condition Age at Onset Recorded Date/T rishi father Myocardial infarction Unknown brother Myocardial infarction Unknown Cerebrovascular accident (CVA) Unknown mother Cardiac disease Unknown Advance Directives No Advanced Directives Records Found Advance Directive Response Recorded Date/ Time Advance Directives Yes December 7:24pm Living Will Yes May 31, 2021 3:12pm Power of Manager [place] Yes May 31 3:12pm Advance Directive Response Recorded Date/ Time Name of Medical Power of Manager [place] Fabrizio Chaner October 07, 2022 6:05pm Advance Directives Yes December 6:24pm Living Will Yes October 07, 022 6:05pm Power of Manager [place] Yes October 07, 2022 6:05pm Advance Directive Response Recorded Date/ Time Name of Medical Power of Manager [place] Fabrizio Mata October 07, 2022 6:05pm Advance Directives Yes December 6:24pm Living Will No January 01, 2 023 10:47pm Power of Manager [place] No January 01, 2023 10:47pm Advance Directive Response Recorded Date/ Time Advance Directives Yes December 7:24pm Living Will No January 01, 2 023 11:47pm Power of Manager [place] No January 01, 2023 11:47pm Advance Directive Response Recorded Date/ Time Advance Directives Yes December 6:24pm Living Will No January 01, 2 023 10:47pm Power of Manager [place] No January 01, 2023 10:47pm Advance Directive Response Recorded Date/ Time Advance Directives Yes December 7:24pm Living Will No March 16, 2024 8: 27pm Power of Manager [place] No March 16, 2024 8:27pm Advance Directive Response Recorded Date/ Time Living Will No March 16, 2024 8: 27pm Do you have a Healthcare Power of Manager [place]? No March 16, 2024 8:27pm Advance Directives Yes December 7:24pm Advance Directive Response Recorded Date/ Time Do you have a Healthcare Power of Manager [place]? Yes May 20, 2025 2:36pm Name of Medical Power of Manager [place] Fabrizio Adolfo May 20, 2025 2:36pm Advance Directives Yes December 7:24pm Advance Directive Response Recorded Date/ Time Do you have a Healthcare Power of Manager [place]? Yes May 20, 2025 8:04pm Name of Medical Power of Manager [place] Fabrizio Mata May 20, 2025 8:04pm Advance [...] section and content) DATE CREATED AUTHOR 12/04/2021 [facility] DATE CREATED AUTHOR AUTHOR'S ORGANIZ ATION 05/23/2025 [facility] Goals (unrecognized section and content) Goals may [...] DO Primary Care Provider Active Jessie Zabala [employer] Attending Provider, Referring Pro vider Active Team [...] Avila MD Family Provider Active Carlenefredy Arriaga [employer] Primary Care Provider Active Team Status: Inactive Member Role Status Dates Dr. Liane Stephenson DO Attending Provider, Referring Prov ider Active Carlene Arriaga [employer] Primary Care Provider Active Team Status: Inactive Member Role Status Dates Carlene Arriaga [employer] Primary Care Provider, Attending P rovider Active [...] 2025 End: May 22, 2025 Dr. Devin Piña DO [...] 2025 End: May 22, 2025 Adelina Shahid [employer], [employer] Other Provider Active Start : May 20, [...] Active Start: May 21, 2025 Adelina Shahid [employer], [employer] Other Provider Active Start : May 21, [...] Active Start: May 21, 2025 Adelina Shahid [employer], [employer] Other Provider Active Start : May 21, [...] Active Start: May 22, 2025 Dr. Ade yRder MD Other Provider Active Start : May [...] Active Start: May 22, 2025 Adelina Shahid [employer], [employer] Other Provider Active Start : May 22, [...] Active Start: May 22, 2025 Adelina Shahid [employer], [employer] Other Provider Active Start : May 22, [...] BE BASED ON THE PRIMARY CLINICAL RECORDS. [employer] [facility]. provides no warranty or guarantee of the accuracy or completeness of information in this document.
[2025-05-28] VITALS (21 sets, daily range): BP systolic 73–158; BP diastolic 48–80; PULSE 53–71; RESP 15–25; TEMP 36.6–36.7; O2SAT 96–100; BMI 28.2
[2025-05-28 00:50] LABS: Troponin T High Sens 2 HR 199 ng/L (<=14)
[2025-05-28] MEDS: 0.9% Normal Saline (1000mL) 1,000 ML 70 ML IV (02:21)
[2025-05-28 03:10] LABS: Troponin T High Sens 4 HR 190 ng/L (<=14)
[2025-05-28 05:19] LABS: Hematocrit 35.3 % (37-47); Hemoglobin 11.8 g/dL (12.0-15.0); Immature Granulocytes Count 0.020 X10^3/uL (0.0-0.0); Mean Corp Hgb Conc 33.4 g/dL (32-36); Mean Corpuscular Volume 93.1 fL (81-99); Mean Platelet Vol. 9.7 fl (6.2-12.0); NRBC Flagged by Analyzer 0 % (0-5); Platelet Count 257 K/mm3 (150-450); RBC Distribution Width CV 13.5 % (11.6-14.6); RBC Distribution Width SD 46.5 fl (35.1-43.9); Red Blood Count 3.79 M/mm3 (4.2-5.4); White Blood Count 9.2 K/mm3 (4.4-11.0)
[2025-05-28 05:36] LABS: D-Dimer Quantitative (DVT/PE) 0.38 FEU/ug/m (0.27-0.49)
[2025-05-28 06:01] LABS: AST(SGOT) 23 U/L (<=31); Alanine Aminotransfer ALT/SGPT 12 U/L (<=34); Albumin, Serum 3.7 g/dL (3.4-4.8); Alkaline Phosphatase 64 U/L (35-104); Anion Gap 10 (5-15); BUN 16 mg/dL (4-19); BUN/Creat Ratio 16.4 RATIO (10-20); Calcium,Total 8.4 mg/dL (7.6-11.0); Carbon Dioxide 20.6 mmol/L (21.0-32.0); Chloride 112 mmol/L (98-108); Estimated Creatinine Clearance 35.21 ml/min (50-250); Globulin 2.6 g/dL (2.2-4.2); Glucose 93 mg/dL (70-99); Potassium 4.0 mmol/L (3.3-5.1); Pro- Brain NATRIURETIC PEPTIDE 5347 pg/mL (<=1800)
[2025-05-28 06:03] LABS: Partial Thromboplast Time 168.2 Seconds (24.1-36.2)
--- NOTE | 2025-05-28 08:08 | CON.PCM.CA_ITS ---
Assessment & Plan Assessment/Plan (1) Non-ST elevated myocardial infarction: PLAN: Patient's enzymes on admission was 206 his trended down to 199-190. The patient denies any recurrence of symptoms at rest on heparin in the hospital. Her symptoms had been progressive in the home environment similar to what she presented with on May 20, 2025. She has essentially failed a combination of nitrates and beta-juan diego therapy in her home environment. There was a history of aspirin allergy listed. Actually this was listed because an delinquent tax collector told her due to her macular degeneration she should avoid aspirin if possible. We will reinstitute aspirin she has been on clopidogrel 75 mg daily since her admission May 20, 2025. Given the patient's recurrent progressive symptoms with positive enzymes and an abnormal ECG I would recommend that we proceed with left heart catheterization to define her coronary anatomy and see if there are culprit lesions that may be easily fixed or amenable to percutaneous revascularization. Given the patient's dementia coronary bypass graft surgery would be very risky for her neurologic status. I went over the cath and PCI procedures risk/benefit and alternatives with the patient and her and daughter in the room today. They voiced understanding and agreed to proceed. We had already had this discussion and this plan when she was admitted May 20, 2025. (2) HTN (hypertension): QUALIFIERS: Hypertension type: primary hypertension Qualified Code(s): I10 - Essential (primary) hypertension PLAN: Blood pressure is adequate controlled on her current medical therapy. We will readdress the meds once we have the definitive diagnosis of her coronary anatomy. (3) HLD (hyperlipidemia): QUALIFIERS: Hyperlipidemia type: pure hypercholesterolemia Q ualified Code(s): E78.00 - Pure hypercholesterolemia, unspecified PLAN: Patient is on intensive statin therapy. Atorvastatin 40 mg daily. Triglycerides 112 total cholesterol 136, LDL 61, HDL 53. This was on no statin therapy. The patient will need to have lipids reevaluated in 4 to 6 weeks. (4) Dementia: QUALIFIERS: Dementia type: unspecified type Dementia severity: u nspecified severity Dementia behavioral or psychological symptom: with other behavioral disturbance Qualified Code(s): F03.918 - Unspecified dementia, unspecified severity, with other behavioral disturbance PLAN: Patient is alert and oriented x 3 this morning. She is on memantine 10 mg twice daily. Should the patient's anatomy be best suited for coronary bypass graft surgery this will create an issue with her dementia. I already discussed this with the patient's family and the patient. Will need to try to find an alternative to bypass graft surgery for symptom relief if at all possible. PLAN: Plan 1. Continue current medical therapy. 2. Add aspirin 81 mg daily. 3. Recommend left heart catheterization. Cath will be done later today. HPI Consult Data Date of Consult: 05/28/25 HPI Narrative Reason for Consultation: Recurring chest pain with positive enzymes HPI Narrative: MELYSSA GUERRERO, is a 84 F who presents with history of progressive anginal type symptoms. The patient was admitted in early May with similar symptoms left shoulder to left chest discomfort. Her enzymes were minimally elevated she was treated medically with resolution of the symptoms. The patient had dementia and therefore was discharged to home on medical therapy. The patient now returns with progressive left shoulder and left anterior chest discomfort. She describes this is occurring both at rest and with activity. When it occurs with activity she sits down and it takes quite a while by her report to resolve. This has become more frequent despite a combination of Imdur and beta-juan diego therapy. The patient's enzymes are now positive troponin 206 on admission 199 and 190 in sequence. Patient also has a BNP elevated at 5000 347 it was 942 on 05/20/2025. Renal function is normal GFR of 57 the patient is not allergic to iodine. The patient lists aspirin as an allergy this is not a true allergy she was told by an eye doctor years ago due to macular degeneration she should avoid aspirin. The patient has been on clopidogrel without incident for the last month. Aspirin will be added. The and daughter were in attendance with the discussion around the heart cath. REPLACED BY [facility] Medical History HLD (hyperlipidemia) HTN (hypertension) Dementia Gout Overweight Chronic kidney disease (CKD), stage III (moderate) Stenosis of retinal artery Macular degeneration Home Medications ?Medication ?Instructions ?Recorded ?Last Taken ?Type atorvastatin 40 mg tablet 40 mg PO QHS CHOLESTEROL 10/06/22 History clopidogrel 75 mg tablet 75 mg PO DAILY BLOOD THINNER 10/07/22 10/06/22 History ursodiol 250 mg tablet 250 mg PO BID gallbladder #6 0 tabs 10/09/22 Unknown Rx allopurinol 100 mg tablet 100 mg PO DAILY gout 5 Unknown History memantine 10 mg tablet 10 mg PO BID memory 05/20/25 Unknown History trandolapril 4 mg tablet 4 mg PO DAILY blood pressure 05/20/25 Unknown History isosorbide mononitrate 30 mg 30 mg PO DAILY #90 tabs 0 05/22/25 Unknown Rx tablet,extended release 24 hr metoprolol tartrate 25 mg tablet 12.5 mg (1/2 x 25 mg) PO DAILY 90 05/22/25 Unknown Rx days #45 tabs nitroglycerin 0.4 mg sublingual 0.4 mg sublingual Q5M PRN CHEST 05/22/25 Unknown Rx tablet PAIN #30 tabs Allergy/AdvReac Type Severity Reaction Status Date / Time No Known Allergies Allergy Verified 05/28/25 08:41 Family History Father Myocardial infarction Brother Myocardial infarction CVA (cerebral vascular accident) Mother Heart disease Surgical History H/O: hysterectomy History of knee replacement procedure of left knee History of spinal fusion Hx of cholecystectomy Social History household members: spouse Smoking Status: Never smoker alcohol intake: never substance use type: does not use ROS Constitutional Constitutional: Reports as per HPI Eyes Eyes: Reports systems reviewed and no addt'l complaints, except as documented and other Details: Patient had been told by delinquent tax collector to avoid aspirin remotely that is where the aspirin allergy of unknown etiology came from. ENT HEENT: Reports systems reviewed and no addt'l complaints, except as documented Cardiovascular Cardiovascular: Reports as per HPI Respiratory/Chest Respiratory/Chest: Reports as per HPI Gastrointestinal Gastrointestinal: Reports systems reviewed and no addt'l complaints, except as documented Genitourinary Genitourinary: Reports systems reviewed and no addt'l complaints, except as documented Musculoskeletal Musculoskeletal: Reports systems reviewed and no addt'l complaints, except as documented Integumentary Integumentary: Reports systems reviewed and no addt'l complaints, except as documented Neurologic Neurologic: Reports as per HPI Psychiatric Psychiatric: Reports as per HPI Endocrine Endocrinology: Reports systems reviewed and no addt'l complaints, except as documented Hematologic/Lymphatic Hematologic/Lymphatic: Reports systems reviewed and no addt'l complaints, except as documented Allergic/Immunologic Allergic/Immunologic: Reports systems reviewed and no addt'l complaints, except as documented Physical Exam Const alert and oriented x3 HEENT normocephalic Eyes EOMs intact bilaterally Neck Carotids: bruit Positive for left Chest inspection of chest normal Resp normal respiratory effort and clear to auscultation bilaterally Cardio Rate: regular rate Rhythm: regular rhythm Heart Sounds: S1 normal, S2 normal and murmur systolic II/ harsh mid left sternal border; Negative for click or gallop Bruits: carotid bruit left Peripheral Pulses: radial pulses present bilateral 2+ GI soft to palpation Extremity no pedal edema Neuro Neuro Narrative: Alert answers all questions appropriately Psych cooperative Risk Stratification Risk Stratification Applicable: Yes Age >/= 65: Yes >/= 3 CAD Risk Factors (HTN, HLD, DM, family hx of CAD, or current smoker): Yes Aspirin Use in the Past 7 Days: Yes Severe Angina (>/= episodes in 24 hours): Yes EKG ST Changes >/= 0.5mm: No Positive Cardiac Marker: Yes PHYLICIA Risk Stratification Score: 5 PHYLICIA % Risk: 25% Risk Charges/Coding Visit Charges Inpatient E&M: 30593 Init Hosp L3 Objective Data Vital Signs: Vital Signs Temp Pulse Resp BP Pulse Ox O2 Del Method 98.1 F 71 16 144/68 H 96 Room Air 05/28/25 06:00 05/28/25 06:00 05/28/25 06:00 05/28/25 06:00 05/28/25 06:00 05/28/25 06:00 Oxygen Delivery Method Room Air Weight: 135 lb Body Mass Index (BMI) 28.2 Intake & Output: Intake and Output for Last 24 Hours 05/26/25 05/27/25 05/28/25 23:59 23:59 23:59 Intake Total 577.1 / 577.1 Balance 577.1 / 577.1 Lab / Micro Data Attestation: I reviewed the patient's lab results. 05/28/25 05:11 05/28/25 05:11 Labs: Laboratory Results - last 24 hr 05/27/25 21:46: WBC 10.0, RBC 3.61 L, Hgb 11.3 L, Hct 33.9 L, MCV 93.9, MCH 31.3, MCHC 33.3, RDW Std Deviation 46.0 H, RDW Coeff of [place] 13.4, Plt Count 257, MPV 9.9, Immature Gran % (Auto) 0.100, Neut % (Auto) 54.9, Lymph % (Auto) 32.3, Lane % (Auto) 8.8, Eos % (Auto) 3.2, Baso % (Auto) 0.7, Absolute Neuts (auto) 5.5, Absolute Lymphs (auto) 3.24, Nucleated RBC % 0, PT 12.5, INR 0.9, APTT 26.6, D-Dimer Quant (PE/DVT) 0.48, Sodium 142, Potassium 3.8, Chloride 110 H, Carbon Dioxide 22.0, Anion Gap 10, BUN 19, Creatinine 1.20, Estim Creat Clear Calc 29.48 L, Est GFR (MDRD) Non-Af 45 L, BUN/Creatinine Ratio 16.0, Glucose 85, Calcium 8.6, Troponin T High Sens 206 H* D 05/27/25 23:56: Troponin T Hi Sens 2 Hr 199 H* 05/28/25 02:23: Troponin T Hi Sens 4Hr 190 H* 05/28/25 05:11: WBC 9.2, RBC 3.79 L, Hgb 11.8 L, Hct 35.3 L, MCV 93.1, MCH 31.1, MCHC 33.4, RDW Std Deviation 46.5 H, RDW Coeff of [place] 13.5, Plt Count 257, MPV 9.7, Immature Gran % (Auto) 0.200, Neut % (Auto) 55.8, Lymph % (Auto) 32.6, Lane % (Auto) 6.6, Eos % (Auto) 3.8, Baso % (Auto) 1.0, Absolute Neuts (auto) 5.1, Absolute Lymphs (auto) 3.00, Nucleated RBC % 0, APTT 168.2 H*, D-Dimer Quant (PE/DVT) 0.38, Sodium 143, Potassium 4.0, Chloride 112 H, Carbon Dioxide 20.6 L, Anion Gap 10, BUN 16, Creatinine 0.99, Estim Creat Clear Calc 35.21 L, Est GFR (MDRD) Non-Af 57 L, BUN/Creatinine Ratio 16.4, Glucose 93, Calcium 8.4, Total Bilirubin 0.34, AST 23, ALT 12, Alkaline Phosphatase 64, NT pro BNP II 5347 H, Total Protein 6.3, Albumin 3.7, Globulin 2.6, Albumin/Globulin Ratio 1.4, TSH 2.890 Rhythm Strip Rhythm Strip: Sinus Rhythm Rate: 62 Cardiology Labs/Tests 05/27/25 21:46: WBC 10.0, RBC 3.61 L, Hgb 11.3 L, Hct 33.9 L, MCV 93.9, MCH 31.3, MCHC 33.3, Plt Count 257, MPV 9.9, Immature Gran % (Auto) 0.100, Neut % (Auto) 54.9, Lymph % (Auto) 32.3, Lane % (Auto) 8.8, Eos % (Auto) 3.2, Baso % (Auto) 0.7, Absolute Neuts (auto) 5.5, Nucleated RBC % 0, PT 12.5, INR 0.9, APTT 26.6, D-Dimer Quant (PE/DVT) 0.48, Sodium 142, Potassium 3.8, Chloride 110 H, Carbon Dioxide 22.0, Anion Gap 10, BUN 19, Creatinine 1.20, Est GFR (MDRD) Non- Af 45 L, BUN/Creatinine Ratio 16.0, Glucose 85, Calcium 8.6 05/28/25 05:11: WBC 9.2, RBC 3.79 L, Hgb 11.8 L, Hct 35.3 L, MCV 93.1, MCH 31.1, MCHC 33.4, Plt Count 257, MPV 9.7, Immature Gran % (Auto) 0.200, Neut % (Auto) 55.8, Lymph % (Auto) 32.6, Lane % (Auto) 6.6, Eos % (Auto) 3.8, Baso % (Auto) 1.0, Absolute Neuts (auto) 5.1, Nucleated RBC % 0, APTT 168.2 H*, D-Dimer Quant (PE/DVT) 0.38, Sodium 143, Potassium 4.0, Chloride 112 H, Carbon Dioxide 20.6 L, Anion Gap 10, BUN 16, Creatinine 0.99, Est GFR (MDRD) Non-Af 57 L, BUN/Creatinine Ratio 16.4, Glucose 93, Calcium 8.4, Total Bilirubin 0.34 Rhythm: EKG: ECHO: Stress Test: Cardiac Cath: PCI: CT Surgery: Holter monitor: EPS: PPM: CXR: Chest CT Scan: Radiography Diagnostic Testing: Radiology Impression Chest X-Ray 05/27/25 22:00 IMPRESSION: No acute cardiopulmonary abnormality. Reading Location: [facility] EK Initial EKG: Attestation: I personally reviewed and interpreted this EKG as follows: (Normal sinus rhythm 64 bpm right bundle branch block left anterior fascicular block. No significant ST-T wave changes.)
--- NOTE | 2025-05-28 08:52 | PN.HOSP_ITS ---
Reason for Visit Chief Complaint: Chest Pain with Activity. Objective Data Objective Data Vital Signs: Vital Signs Temp Pulse Resp BP Pulse Ox O2 Del Method 97.8 F 64 16 158/80 H 97 Room Air 05/28/25 08:24 05/28/25 08:24 05/28/25 08:24 05/28/25 08:24 05/28/25 08:24 05/28/25 08:24 Oxygen Delivery Method Room Air Weight: 135 lb Body Mass Index (BMI) 28.2 Intake & Output: Intake and Output for Last 24 Hours 05/26/25 05/27/25 05/28/25 23:59 23:59 23:59 Intake Total 577.1 / 577.1 Balance 577.1 / 577.1 Lab / Micro Data 05/28/25 05:11 05/28/25 05:11 Labs: Laboratory Results - last 24 hr 05/27/25 21:46: WBC 10.0, RBC 3.61 L, Hgb 11.3 L, Hct 33.9 L, MCV 93.9, MCH 31.3, MCHC 33.3, RDW Std Deviation 46.0 H, RDW Coeff of [place] 13.4, Plt Count 257, MPV 9.9, Immature Gran % (Auto) 0.100, Neut % (Auto) 54.9, Lymph % (Auto) 32.3, [place] % (Auto) 8.8, Eos % (Auto) 3.2, Baso % (Auto) 0.7, Absolute Neuts (auto) 5.5, Absolute Lymphs (auto) 3.24, Nucleated RBC % 0, PT 12.5, INR 0.9, APTT 26.6, D-Dimer Quant (PE/DVT) 0.48, Sodium 142, Potassium 3.8, Chloride 110 H, Carbon Dioxide 22.0, Anion Gap 10, BUN 19, Creatinine 1.20, Estim Creat Clear Calc 29.48 L, Est GFR (MDRD) Non-Af 45 L, BUN/Creatinine Ratio 16.0, Glucose 85, Calcium 8.6, Troponin T High Sens 206 H* D 05/27/25 23:56: Troponin T Hi Sens 2 Hr 199 H* 05/28/25 02:23: Troponin T Hi Sens 4Hr 190 H* 05/28/25 05:11: WBC 9.2, RBC 3.79 L, Hgb 11.8 L, Hct 35.3 L, MCV 93.1, MCH 31.1, MCHC 33.4, RDW Std Deviation 46.5 H, RDW Coeff of [place] 13.5, Plt Count 257, MPV 9.7, Immature Gran % (Auto) 0.200, Neut % (Auto) 55.8, Lymph % (Auto) 32.6, [place] % (Auto) 6.6, Eos % (Auto) 3.8, Baso % (Auto) 1.0, Absolute Neuts (auto) 5.1, Absolute Lymphs (auto) 3.00, Nucleated RBC % 0, APTT 168.2 H*, D-Dimer Quant (PE/DVT) 0.38, Sodium 143, Potassium 4.0, Chloride 112 H, Carbon Dioxide 20.6 L, Anion Gap 10, BUN 16, Creatinine 0.99, Estim Creat Clear Calc 35.21 L, Est GFR (MDRD) Non-Af 57 L, BUN/Creatinine Ratio 16.4, Glucose 93, Calcium 8.4, Total Bilirubin 0.34, AST 23, ALT 12, Alkaline Phosphatase 64, NT pro BNP II 5347 H, Total Protein 6.3, Albumin 3.7, Globulin 2.6, Albumin/Globulin Ratio 1.4, TSH 2.890 Radiography Diagnostic Testing: Radiology Impression Chest X-Ray 05/27/25 22:00 IMPRESSION: No acute cardiopulmonary abnormality. Reading Location: [id number] Rhythm Strip Rhythm Strip: Sinus Rhythm Rate: 62 Physical Exam Narrative Patient complaining of left-sided inframammary region chest pain and shortness of breath with activity for last 3 to 4 days getting more frequent yesterday with and without activity. Chest pain goes away with rest. Denies palpitation or heart racing. No dysuria. Denies history of smoking or COPD. No BM for 1 week. General: Alert, Oriented x3, Cooperative HEENT: Atraumatic, PERRLA, EOMI, Normocephalic. Oral: No Gingival or Mucosal Lesions/ Ulcerations Neck: Supple, No JVD, Negative Carotid Bruits Chest wall/Lungs: Air entry diminished in bilateral lung bases. No crepitation/rhonchi Cardiovascular: Regular rate and rhythm, Normal S1,S2, systolic murmur right second ICS Abdomen: Bowel Sounds Present, Soft, Non Tender, Non-Distended : No dysuria. No renal angle tenderness. No suprapubic tenderness. Extremities: No edema, Capillary Refill Less than 3 Seconds Skin: No rashes, No breakdown Musculoskeletal: No Tenderness to Palpation of Joints or Extremities Neurological: Cranial nerves II-XII grossly intact, DTR 2+/4. No acute focal neurological deficit. Psych/Mental Status: Normal Affect, Appropriate. Assessment & Plan Assessment/Plan (1) Non-ST elevated myocardial infarction: (2) Chest pain: QUALIFIERS: Chest pain type: chest pain due to myocardial ischemia Ischemic chest pain type: unstable angina pectoris Qualified Code(s): I20.0 - Unstable angina (3) HTN (hypertension): QUALIFIERS: Hypertension type: primary hypertension Qualified Code(s): I10 - Essential (primary) hypertension (4) HLD (hyperlipidemia): QUALIFIERS: Hyperlipidemia type: pure hypercholesterolemia Q ualified Code(s): E78.00 - Pure hypercholesterolemia, unspecified (5) Dementia: QUALIFIERS: Dementia type: unspecified type Dementia severity: u nspecified severity Dementia behavioral or psychological symptom: with other behavioral disturbance Qualified Code(s): F03.918 - Unspecified dementia, unspecified severity, with other behavioral disturbance (6) Overweight: PLAN: Plan 84-year-old female complaint of left-sided chest pain on and off for last 3 to 4 days got more frequently yesterday with and without activity with shortness of breath 1. Non-STEMI: Patient is examined in PCU. Hide troponin troponin of 206 ng/L, 199 and 190. Discussed with the high school science tutor. Plan for taking her for cardiac cath. On IV heparin drip. Patient had echo in May 2025 shows EF 65% with stage I diastolic dysfunction, 1-2+ posteriorly directed MR, aortic sclerosis. On IV heparin drip, baby aspirin, atorvastatin and Plavix. On lisinopril 40 mg daily. 2. CAD; s/p non-ST elevation [place] diagnosed during recent admission here from May 20, 2025 to May 22, 2025: The high school science tutor recommended conservative management at that point in time with patient discharged home on Imdur and SL NTG 3. Essential hypertension; on trandolapril on metoprolol c - Continue home regimen plus give prn IV hydralazine for systolic blood pressure > 160 mmHg. 4. Hyperlipidemia; on atorvastatin exacerbating #1 - #3 - Resume statin. 5. Overweight; with BMI of 29.1 this admission adding to the burden of disease outlined from #1 - #4 - Weight loss will be recommended. Check TSH. 6. History of dementia; on memantine twice daily - Stable on current treatment which will be continued. 10. Gout; on allopurinol - Stable with no evidence of acute flare at this time. Maintain allopurinol as previous. 11. OA; s/p Left TKR with history of spinal fusion - We will follow pain regimen and scaled outlined in #1. 12. Chronic constipation: Not had BM for 1 week. Senna S2 tablet twice daily and will add 70 g twice daily DVT prophylaxis - Patient already on IV heparin for #1.
--- NOTE | 2025-05-28 09:29 | CASEMGMT ---
Tertiary Insurance review for hospitals In-network with [employer] insurance if transfer is recommended is as follows: [facility], [facility], [place], [facility], [facility], [facility], , [facility], [facility], and [place]. Marni Caro, Discharge Planning Asst.
[2025-05-28] MEDS: 0.9% Normal Saline (250mL Bag) 250 ML 999 ML IV (13:00)
[2025-05-28 14:05] LABS: Partial Thromboplast Time 33.6 Seconds (24.1-36.2)
--- NOTE | 2025-05-28 14:06 | PCM.DC.SUM ---
Providers Date of Admission: 05/27/25 Date of Discharge: 05/28/25 Primary Care Physician: Dr. Liane Stephenson, DO Consultations 05/28/25 01:10 Consult: Cardiology Routine Consulting Provider: Woody Tolliver Reason for Consult: NSTEMI EMERGENT Consult: No MD Notified: Yes Date Notified: 05/27/25 Time Notified: 23:05 Method of Notification: Answering Service Reason For Visit: NSTEMI Diagnosis Discharge Diagnosis (1) Non-ST elevated myocardial infarction: Status: Acute Code(s): I21.4 - Non-ST elevation (NSTEMI) myocardial infarction (2) Chest pain: Status: Acute Code(s): R07.9 - Chest pain, unspecified Qualifiers: Chest pain type: chest pain due to myocardial ischemia Ischemic chest pain type: unstable angina pectoris Qualified Code(s): I20.0 - Unstable angina (3) HTN (hypertension): Status: Chronic Code(s): I10 - Essential (primary) hypertension Qualifiers: Hypertension type: primary hypertension Qualified Code(s): I10 - Essential (primary) hypertension (4) HLD (hyperlipidemia): Status: Acute Code(s): E78.5 - Hyperlipidemia, unspecified Qualifiers: Hyperlipidemia type: pure hypercholesterolemia Qualified Code(s): E78.00 - Pure hypercholesterolemia, unspecified (5) Dementia: Status: Acute Code(s): F03.90 - Unspecified dementia, unspecified severity, without behavioral disturbance, psychotic disturbance, mood disturbance, and anxiety Qualifiers: Dementia behavioral or psychological symptom: with other behavioral disturbance Dementia severity: unspecified severity Dementia type: unspecified type Qualified Code(s): F03.918 - Unspecified dementia, unspecified severity, with other behavioral disturbance (6) Overweight: Status: Acute Code(s): E66.3 - Overweight Plan 84-year-old female complaint of left-sided chest pain on and off for last 3 to 4 days got more frequently yesterday with and without activity with shortness of breath 1. Non-STEMI: Patient is examined in PCU. Hide troponin troponin of 206 ng/L, 199 and 190. Discussed with the recruiting operations consultant. Plan for taking her for cardiac cath. On IV heparin drip. Patient had echo in May 2025 shows EF 65% with stage I diastolic dysfunction, 1-2+ posteriorly directed MR, aortic sclerosis. On IV heparin drip, baby aspirin, atorvastatin and Plavix. On lisinopril 40 mg daily. 05/28: Cardiac cath was done which shows EF 65% by echo, normal LV wall motion. Left main distal 90% stenosis, LAD severe diffuse disease proximal 80%, mid 80% and diffuse distal disease. Circumflex ostial circumflex 90%, mid circumflex mild luminal irregularities. RCA diffusely diseased up to 80% proximal and distal moderate diffuse disease. Overall, distal LM, diffuse LAD disease and ostial left circumflex. The patient needs surgical consult for coronary revascularization. Dr. Luis Dominguez, recruiting operations consultant discussed with the recruiting operations consultant of [facility] and the separate the patient. I also called our transfer line and patient accepted, pending transfer when bed is available. Resume heparin drip after wristband is taken of prep to 6 hours. Discussed with the recruiting operations consultant 2. CAD; s/p non-ST elevation [place] diagnosed during recent admission here from May 20, 2025 to May 22, 2025: The recruiting operations consultant recommended conservative management at that point in time with patient discharged home on Imdur and SL NTG 05/28: As mentioned above. 3. Essential hypertension; on trandolapril on metoprolol c - Continue home regimen plus give prn IV hydralazine for systolic blood pressure > 160 mmHg. 05/28: Hold lisinopril for 48 hours as patient had cardiac cath. 4. Hyperlipidemia; on atorvastatin 5. Overweight; with BMI of 29.1 this admission adding to the burden of disease outlined from #1 - #4 - Weight loss will be recommended. Check TSH. 6. History of dementia; on memantine twice daily - Stable on current treatment which will be continued. 10. Gout; on allopurinol - Stable with no evidence of acute flare at this time. Maintain allopurinol as previous. 11. OA; s/p Left TKR with history of spinal fusion - We will follow pain regimen and scaled outlined in #1. 12. Chronic constipation: Not had BM for 1 week. Senna S2 tablet twice daily and will add 70 g twice daily DVT prophylaxis - Patient already on IV heparin for #1. Patient is being transferred to tertiary care for cardiology/cardiac surgeon evaluation for triple bypass surgery Medications at Discharge Home Medications atorvastatin 40 mg tablet 40 mg PO QHS CHOLESTEROL 10/07/22 clopidogrel 75 mg tablet 75 mg PO DAILY BLOOD THINNER 10/07/22 ursodiol 250 mg tablet 250 mg PO BID gallbladder #60 tabs 10/09/22 allopurinol 100 mg tablet 100 mg PO DAILY gout 05/20/25 memantine 10 mg tablet 10 mg PO BID memory 05/20/25 trandolapril 4 mg tablet 4 mg PO DAILY blood pressure 05/20/25 isosorbide mononitrate 30 mg tablet,extended release 24 hr 30 mg PO DAILY #90 tabs 05/22/25 metoprolol tartrate 25 mg tablet 12.5 mg (1/2 x 25 mg) PO DAILY 90 days #45 tabs 05/22/25 nitroglycerin 0.4 mg sublingual tablet 0.4 mg sublingual Q5M PRN CHEST PAIN #30 tabs 05/22/25 Physical Exam Narrative Patient complaining of left-sided inframammary region chest pain and shortness of breath with activity for last 3 to 4 days getting more frequent yesterday with and without activity. Chest pain goes away with rest. Denies palpitation or heart racing. No dysuria. Denies history of smoking or COPD. No BM for 1 week. General: Alert, Oriented x3, Cooperative HEENT: Atraumatic, PERRLA, EOMI, Normocephalic. Oral: No Gingival or Mucosal Lesions/ Ulcerations Neck: Supple, No JVD, Negative Carotid Bruits Chest wall/Lungs: Air entry diminished in bilateral lung bases. No crepitation/rhonchi Cardiovascular: Regular rate and rhythm, Normal S1,S2, systolic murmur right second ICS Abdomen: Bowel Sounds Present, Soft, Non Tender, Non-Distended : No dysuria. No renal angle tenderness. No suprapubic tenderness. Extremities: No edema, Capillary Refill Less than 3 Seconds Skin: No rashes, No breakdown Musculoskeletal: No Tenderness to Palpation of Joints or Extremities Neurological: Cranial nerves II-XII grossly intact, DTR 2+/4. No acute focal neurological deficit. Psych/Mental Status: Normal Affect, Appropriate. Weight / BMI Weight Weight: 135 lb Body Mass Index (BMI) 28.2 ABG / Lab / Microbiology Data 05/28/25 05:11 05/28/25 05:11 Laboratory: Laboratory Results - last 24 hr 05/27/25 21:46: WBC 10.0, RBC 3.61 L, Hgb 11.3 L, Hct 33.9 L, MCV 93.9, MCH 31.3, MCHC 33.3, RDW Std Deviation 46.0 H, RDW Coeff of [place] 13.4, Plt Count 257, MPV 9.9, Immature Gran % (Auto) 0.100, Neut % (Auto) 54.9, Lymph % (Auto) 32.3, [place] % (Auto) 8.8, Eos % (Auto) 3.2, Baso % (Auto) 0.7, Absolute Neuts (auto) 5.5, Absolute Lymphs (auto) 3.24, Nucleated RBC % 0, PT 12.5, INR 0.9, APTT 26.6, D-Dimer Quant (PE/DVT) 0.48, Sodium 142, Potassium 3.8, Chloride 110 H, Carbon Dioxide 22.0, Anion Gap 10, BUN 19, Creatinine 1.20, Estim Creat Clear Calc 29.48 L, Est GFR (MDRD) Non-Af 45 L, BUN/Creatinine Ratio 16.0, Glucose 85, Calcium 8.6, Troponin T High Sens 206 H* D 05/27/25 23:56: Troponin T Hi Sens 2 Hr 199 H* 05/28/25 02:23: Troponin T Hi Sens 4Hr 190 H* 05/28/25 05:11: WBC 9.2, RBC 3.79 L, Hgb 11.8 L, Hct 35.3 L, MCV 93.1, MCH 31.1, MCHC 33.4, RDW Std Deviation 46.5 H, RDW Coeff of [place] 13.5, Plt Count 257, MPV 9.7, Immature Gran % (Auto) 0.200, Neut % (Auto) 55.8, Lymph % (Auto) 32.6, [place] % (Auto) 6.6, Eos % (Auto) 3.8, Baso % (Auto) 1.0, Absolute Neuts (auto) 5.1, Absolute Lymphs (auto) 3.00, Nucleated RBC % 0, APTT 168.2 H*, D-Dimer Quant (PE/DVT) 0.38, Sodium 143, Potassium 4.0, Chloride 112 H, Carbon Dioxide 20.6 L, Anion Gap 10, BUN 16, Creatinine 0.99, Estim Creat Clear Calc 35.21 L, Est GFR (MDRD) Non-Af 57 L, BUN/Creatinine Ratio 16.4, Glucose 93, Calcium 8.4, Total Bilirubin 0.34, AST 23, ALT 12, Alkaline Phosphatase 64, NT pro BNP II 5347 H, Total Protein 6.3, Albumin 3.7, Globulin 2.6, Albumin/Globulin Ratio 1.4, TSH 2.890 05/28/25 13:45: APTT 33.6 Radiography Diagnostic Testing: Radiology Impression Chest X-Ray 05/27/25 22:00 IMPRESSION: No acute cardiopulmonary abnormality. Reading Location: [id number]/C Instructions DC O2, CPAP, BIPAP Needs Home O2 Discharge instructions: No Meaningful Use Info Meaningful Use Meaningful Use Diagnoses (Choose all that apply): None applicable Discharge Plan Admission Admit Date/Time: 05/27/25 23:03 Attending Provider: Feliz Solorzano Primary Care Provider: Liane Stephenson Consulting Providers: Sharon Dugan; Ade Ryder; Pola Dumont; Tavo Wilson; Caleb Guardado; Martinez Hoang; Hansel Vasques; Alcira Thakur; Luis Dominguez; Chica Peters; Martin Arias; Bryan Syed; Francois Shahid NP; Brigida Dixon PA; Preston Leiva; Miller Rush Discharge Orders/Prescriptions Prescriptions: No Action atorvastatin 40 MG tablet 40 mg PO QHS clopidogrel 75 MG tablet 75 mg PO DAILY ursodiol 250 mg tablet 250 mg PO BID Qty: 60 0RF trandolapril 4 mg tablet 4 mg PO DAILY allopurinol 100 mg tablet 100 mg PO DAILY memantine 10 mg tablet 10 mg PO BID isosorbide mononitrate 30 mg Tablet Extended Release 24 Hr 30 mg PO DAILY Qty: 90 0RF nitroglycerin 0.4 mg Tablet, Sublingual 0.4 mg sublingual Q5M PRN (Reason: CHEST PAIN) Qty: 30 0RF metoprolol tartrate 25 mg Tablet 12.5 mg PO DAILY 90 Days Qty: 45 0RF Referrals / Follow Up: Liane Stephenson DO [Primary Care Provider] - Disposition Discharge Orders: Discharge Patient (Routine); Ordered 05/28/25 Ordered By: Dr. Feliz Solorzano Charges/Coding Visit Charges Inpatient E&M: 77563 Disch Hosp >30min
--- NOTE | 2025-05-28 16:43 | NURSING ---
Report called to SON[facility] Bradley, all questions answered. Aware of pickup time around 1700
--- NOTE | 2025-06-18 09:47 | CL.D_ITS ---
Patient Name: MELYSSA GUERRERO Study Date: 05/28/2025 Performing: Hansel Vasques MD Ht: 58 inches 147.32 cm : 1940 Wt: 134.99 lbs 61.23 kg Age: 84 Gender: female BSA: 1.54 PROCEDURE(S) PERFORMED [id number]-([id number])[facility]/COR CLINICAL PROFILE AND INDICATIONS Heart Failure: None CONCLUSIONS Distal LM and diffuse LAD disease, ostial LCX RECOMMENDATIONS Surgery consult for coronary revascularization DESCRIPTION OF PROCEDURE The patient arrived to the procedure lab. The risks and benefits of the procedure as well as a full description of our services here and current unavailability of surgical backup were fully explained to the patient and/or their significant other prior to the catheterization. The Timeout was completed, verifying the correct patient and procedure. The patient's procedural site was prepped and draped in the usual fashion. Local anesthetic was given subcutaneously to right radial region with Lidocaine 2%. Using a modified Seldinger technique, arterial access was obtained via the right radial artery, a 6Fr sheath was inserted. lucina rapp Right Coronary Artery selective angiography was then performed in multiple views using a 5 Fr. 4.0 [place] catheter. Left Coronary Artery selective angiography was performed in multiple views using a 5 Fr. 4.0 [place] catheter.The arterial sheath was pulled and a TR Band was applied for hemostasis CORONARY ANGIOGRAPHY DOMINANCE: Right Dominant LEFT HEART ASSESSMENT Left Ventricular Ejection Fraction: by Echo 65 % Normal LV wall motion LEFT MAIN: Distal 90% stenosis LEFT ANTERIOR DESCENDING ARTERY: Severe diffuse disease with proximal 80% stenosis, mid 80% stenosis and diffuse distal disease. CIRCUMFLEX ARTERY: OSTIAL CIRC: 90 % Stenosis MID CIRC: Mild luminal irregularities RIGHT CORONARY ARTERY: Diffusely diseased up to 80 % proximal and distal moderate diffuse disease COMPLICATIONS No Complications PROCEDURE MEDICATIONS Fentanyl 25 mcg IV Versed .5 mg IV Oxygen: 2 L/min via nasal cannula Baby Aspirin (81mg) 1 Tabs PO @ 05/28/2025 10:23:41 Heparin given IA 05/28/2025 10:24:02 Verapamil 2.5mg, Ntg 200mcgs, 2000 units of Heparin given IA 05/28/2025 10:24:02 SUMMARY OF HEMODYNAMIC DATA Time AIR REST AO 130/67 (91) SA 10:26:20 ECG 10:46:12 10:46:12 Signed By Hansel Vasques MD On 05/28/2025 10:47:56 Signed By Hansel Vasques MD On 05/28/2025 10:47:33 Hansel Vasques MD
== END 2025-05-28 17:49 | disposition short-term general hospital (02) | DRG 282 ==
LOC: ED 22:51 → PCU 23:35
PROVIDERS: Admitting Provider Internal Medicine; Emergency Provider Emergency Medicine; PCP Family Medicine; Visit Provider Internal Medicine
DX: I21.4 Non-ST elevation (NSTEMI) myocardial infarction (principal); E66.3 Overweight; F03.90 Unspecified dementia, unspecified severity, without behavioral disturbance, psychotic disturbance, mood disturbance, and anxiety; N18.30 Chronic kidney disease, stage 3 unspecified; I12.9 Hypertensive chronic kidney disease with stage 1 through stage 4 chronic kidney disease, or unspecified chronic kidney disease; I25.110 Atherosclerotic heart disease of native coronary artery with unstable angina pectoris; E78.00 Pure hypercholesterolemia, unspecified; M10.9 Gout, unspecified; K59.09 Other constipation; Z96.652 Presence of left artificial knee joint; Z68.29 Body mass index [BMI] 29.0-29.9, adult; Z98.1 Arthrodesis status; Z79.02 Long term (current) use of antithrombotics/antiplatelets; Z79.899 Other long term (current) drug therapy
CPT/HCPCS: 36415; 71045; 80048; 80053; 83880; 84443; 84484; 85025; 85379; 85610; 85730; 93005; 93454; 99152; 99153; 99285; Q9967; A4216; C1769; C1894

== ENCOUNTER → 2025-06-21 | Outpatient (CLI) | payer MEDICARE, SELFPAY ==
--- NOTE | 2025-06-21 11:30 | LES_PTH ---
PATIENT: MELYSSA GUERRERO [facility][id number] AGE/SX: 84/F ROOM: RE06/21/[address]: Dr. Liane Stephenson DO : 1940 BED: DIS: 06/21/2025 SPEC #: [id number] RECD: 06/21/25 15:25 STATUS: [place] #: [id number] JUSTIN: 06/21/25 11:[address]: Liane Stephenson DEPT: SURGICAL PATHOLOGY RECD BY: Jose Ramos Tissues: A - Skin of hand and finger, NOS Procedures: Surgery Specimen Level IV HEADER OPERATION: Excisional biopsy left dorsal hand PRE-OP DIAGNOSIS: SCC vs actinic verrucous TISSUE SUBMITTED: A- Left dorsal hand proximal to thumb MICROSCOPIC DIAGNOSIS A. Skin, left dorsal hand proximal to thumb, excisional biopsy: - Invasive squamous cell carcinoma, moderately differentiated, involving the deep surgical margin and closely approaching bilateral/peripheral surgical margins. MICROSCOPIC DESCRIPTION Slides are reviewed. GROSS DESCRIPTION A. Received in formalin labeled the patient's name and date of is a 0.7 x 0.5 cm ovoid portion of skin devoid of orientation, excised to maximum depth of 0.3 cm. The resection margin is inked orange. Centrally on the epidermal surface is a 0.5 x 0.4 cm gillis to red raised scab located at the peripheral edge. The specimen is trisected and entirely submitted in 1 cassette. DC 06/21/2025 CPT:87036
== END | disposition home or self-care (01) ==
LOC: LABSPEC 12:58
PROVIDERS: PCP Family Medicine; Visit Provider Family Medicine
DX: Z78.9 Other specified health status (principal)
CPT/HCPCS: 88305

== ENCOUNTER 2025-06-29 10:23 | Outpatient (CLI) | payer MEDICARE, SELFPAY ==
[2025-06-29 10:38] VITALS: BP 150/82; PULSE 57; RESP 14; TEMP 35.7; O2SAT 100; BMI 25.0
[2025-06-29] MEDS: DENOSUMAB 60 MG/ML SC (10:44)
== END 2025-06-29 23:59 | disposition home or self-care (01) ==
LOC: MEDOUTP 10:24
PROVIDERS: PCP Family Medicine; Referring Provider Family Medicine; Visit Provider Family Medicine
DX: M81.0 Age-related osteoporosis without current pathological fracture (principal)
CPT/HCPCS: 96372; J0897